=== PATIENT | female | born 1960 | race Caucasian/White ===

== ENCOUNTER 2022-01-05 10:25 | Emergency (ER) | payer OTHER, SELFPAY ==
[2022-01-05 10:41] VITALS: BP 135/78; PULSE 62; RESP 16; TEMP 36.8; O2SAT 98; BMI 26.4
--- NOTE | 2022-01-05 11:03 | ED.NURSE ---
ekg done, pt placed on heart monitor, shows sr 60's. #20 sl placed R ac, blood drawn off iv start
--- NOTE | 2022-01-05 11:26 | CRLHL7_ITS ---
For Patients: As a result of the Century Cures Act, medical imaging exams and procedure reports are released immediately into your electronic medical record. You may view this report before your referring provider. If you have questions, please contact your health care provider. INDICATION: Chest pain TECHNIQUE: Chest 1 view COMPARISON: None FINDINGS: Cardiovascular and mediastinum: Heart size and vasculature are normal in caliber and appearance. Lungs and pleural spaces: Lungs are clear. No sign of infiltrate or mass. No sign of pleural effusion. No pneumothorax. Bones and soft tissues: No significant findings. IMPRESSION: No acute findings. Dictated by Quan Massey MD @ 01/05/2022 12:09:19 PM (Electronically Signed)
--- NOTE | 2022-01-05 11:26 | ED.CHESTPAIN ---
HPI - Chest Pain General Time Seen by Provider: 11:26 Date Seen: 01/05/22 Chief Complaint: Chest Pain Stated Complaint: Chest pain, left arm numb Time Seen by Provider: 01/05/22 11:25 Source: patient, RN notes reviewed and old records reviewed Mode of arrival: ambulatory Limitations: no limitations History of Present Illness HPI narrative: Amie is a very pleasant 61-year-old female with a history of hypertension and poorly treated hyper lipidemia as well as strong family history of early heart disease who comes to the [facility] for evaluation regarding chest pain. Patient notes that she has had chest pain on and off over the past 7 days. It does not appear to be associated particularly with activity and activity does not make it worse. She shows this to be in the bottom part of her sternal area. She states occasionally it does wrap around to her back. This does not stop her from sleeping. It is not associated with shortness of breath, nausea or dizziness. 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 She does note a new onset cough that is not productive but associated with some throat drainage. She has not had any known exposures to illnesses. She denies runny nose vomiting diarrhea. Patient has not noted any recent weight loss or lower extremity edema but has noticed extreme fatigue lately. Patient has a strong family history of heart disease. Her father had her his 1st heart attack at the age of 42 and at 49. Two brothers have early heart disease with 1 brother having an MO at 36 with 8 bypass surgery subsequent to that. He at 47. Sister and brother also have early heart disease. She will herself had a stress test many years ago but nothing recently. She notes that she was on simvastatin for hyperlipidemia but she stopped that because she stated it made her feet feel cold. She then was placed on atorvastatin but felt that it gave her headache and so she has stopped that medication as well. She does continue on her atenolol for high blood pressure. She does note that if she does not take her atenolol she does have some fluttering in her chest. Patient attempted to go to see her primary at the [facility] but they told her to go to the emergency room. Patient does not smoke. Alcohol use is occasional. Related Data Home Medications Medication Instructions Recorded Confirmed atenolol 50 mg-chlorthalidone 25 tab 01/05/22 mg tablet cetirizine 10 mg tablet mg 01/05/22 simvastatin .ROUTE 01/05/22 Allergies Allergy/AdvReac Type Severity Reaction Status Date / Time No Known Drug Allergies Allergy Verified 01/05/22 10:45 Review of Systems Status of ROS Reports: 10 or more systems reviewed and unremarkable except as noted in History and below Const Reports: fatigue; Denies: fever or chills Eyes Denies: change in vision ENMT Denies: throat pain, neck pain, throat swelling or hoarseness Cardio Reports: chest pain; Denies: palpitations, swelling of feet/ankles, lightheadedness or shortness of breath with exertion Resp Denies: shortness of breath GI Reports: abdominal pain (Lower sternal area and upper abdominal pain); Denies: nausea, vomiting, diarrhea, constipation or blood in stool Denies: painful urination or urinary frequency Musculo Denies: neck pain Neuro Denies: headache or weakness in extremities Endo Reports: fatigue Allergy/Immuno Denies: throat swelling PFSH PFSH Social History Smoking Status: Former smoker How often do you have a drink containing alcohol: 2-3 times a week AUDIT-C Alcohol total score: 3 Non-prescribed substance use: denies use Exam Narrative Exam Narrative: Amie is a very pleasant woman in no acute distress when I meet her in exam room 8. She does appear slightly fatigued. Head is atraumatic normocephalic. Her eyes are clear EOM is full. Oral cavity with moist mucous membranes. Neck is supple without lymphadenopathy. Heart with regular rate and rhythm without murmur. No rub is auscultated. Lungs are clear in all lung reyes. Abdomen is soft nontender. No discomfort in the epigastrium right upper quadrant with palpation. No pulsating mass. Lower extremities without edema. No calf tenderness. Homans sign is negative. Pedal pulses are intact and symmetrical. Const Vital Signs, click to edit/add: Vital Signs - 24 hr 01/05/22 10:41 01/05/22 15:20 01/05/22 13:00 Temperature 98.3 F Pulse Rate [Pulse Oximeter] 62 61 64 Respiratory Rate 16 18 Blood Pressure [Right Upper Arm] 135/78 138/80 127/83 Pulse Oximetry 98 97 96 Oxygen Delivery Method Room Air Room Air Room Air 01/05/22 14:00 Temperature Pulse Rate [Pulse Oximeter] 62 Respiratory Rate Blood Pressure [Right Upper Arm] 134/80 Pulse Oximetry 96 Oxygen Delivery Method Room Air Documenting provider has reviewed patient's vital signs: yes Course Course Hospital Course: At this time she lip is a 61-year-old female with poorly treated hyperlipidemia extremely strong family history of early cardiac disease but reassuring vital signs and EKG. Patient will have an IV placed and labs drawn including CBC, comprehensive panel, lipase, troponin, chest x-ray, EKG, cardiac monitoring, oximetry. Differential diagnosis does include but is not limited to angina, pericarditis, COVID, influenza, PE, dissection, pancreatitis, gastritis, esophagitis, GERD. Reevaluation(s) Reevaluation #1: Patient is informed that initial troponin is negative and EKG reassuring. In addition thyroid appears to be normal. CRP and COVID/influenza negative as well. At this point will get a 2nd set of EKG and cardiac enzyme. Given patient's significant family history for early heart disease will also speak with Cardiology. Time: 13:03 Vital Signs Vital signs: Initial Vital Signs Temperature 98.3 F 01/05/22 10:41 Temperature Source Temporal Artery Scan 01/05/22 10:41 Pulse Rate 62 01/05/22 10:41 Respiratory Rate 16 01/05/22 10:41 Blood Pressure 135/78 01/05/22 10:41 Blood Pressure Mean 97 01/05/22 10:41 Blood Pressure Position Supine 01/05/22 10:41 Pulse Oximetry 98 01/05/22 10:41 Oxygen Delivery Method 01/05/22 10:41 Vital Signs Temperature 98.3 F 01/05/22 10:41 Pulse Rate 62 01/05/22 10:41 Respiratory Rate 16 01/05/22 10:41 Blood Pressure 135/78 01/05/22 10:41 Pulse Oximetry 98 01/05/22 10:41 Oxygen Delivery Method 01/05/22 10:41 Temperature 98.3 F 01/05/22 10:41 Pulse Rate 61 01/05/22 15:20 Respiratory Rate 18 01/05/22 15:20 Blood Pressure 138/80 01/05/22 15:20 Pulse Oximetry 97 01/05/22 15:20 Oxygen Delivery Method 01/05/22 15:20 MDM - Chest Pain MDM Narrative Medical decision making narrative: 1. Chest pain-at this time EKGs and cardiac enzymes x2 are negative. I did have the pleasure of speaking with [facility] magnetic grinder operator who does suggest that Amie is likely going to benefit from CTA but unable to do that today. We were able to do an echocardiogram which was reassuring in terms of structure. We did start patient on aspirin 324 mg today and she will continue that. We did attempt scheduling an appointment with cardiology follow-up tomorrow but then noted that there is going to be significance no in the area and patient will be seen on WednesdayJanuary [address] Cole at [address] in [place] [address]. I did provide both the phone number and the address to the patient. Phone number is [phone]. Until that time patient will remain and not be at work. She is instructed not do any strenuous activity including sexual activity. A note for this is provided to her. D-dimer negative. Chest x-ray without evidence of widened mediastinum. 2. Fatigue-TSH, white count, electrolytes, urinalysis reassuring. 3. Hyperlipidemia-recommend restarting current medications 4. Disposition -home at this time. Seek medical attention or return for worsening symptoms. Medical Records Data Attestation: I reviewed the patient's medical records. Lab Data Attestation: I reviewed the patient's lab results. Labs: Lab Results 01/05/22 01/05/22 01/05/22 Range/Units 11:00 11:00 11:00 WBC 6.82 (4.50-11.00) K/uL RBC 4.84 (4.00-5.20) m/uL Hgb 13.1 (12.0-16.0) gm/dL Hct 40.8 (33.0-51.0) % MCV 84 (80-100) fL MCH 27 (26-34) pg MCHC 32 (32-36) gm/dL RDW Coeff of Melina 13.0 (11.5-15.5) % Plt Count 296 (140-440) K/uL Neut % (Auto) 58.4 (42.0-72.0) % Lymph % (Auto) 29.5 (20-44) % [place] % (Auto) 8.4 (0.0-11.0) % Eos % (Auto) 3.2 (0.0-7.0) % Baso % (Auto) 0.4 (0.0-3.0) % Neut # (Auto) 3.98 (1.7-7.0) K/uL Lymph # (Auto) 2.01 (0.90-2.90) K/uL [place] # (Auto) 0.60 (0.00-0.90) K/UL Eos # (Auto) 0.22 (0.00-0.50) K/uL Baso # (Auto) 0.03 (0.00-0.30) K/uL Abs Immat Gran (auto) 0.01 (0.00-0.30) K/uL Imm/Tot Granulo (auto) 0.1 % D-Dimer Quant (PE/DVT) < 0.27 (0.00-0.50) ug/ml Sodium 138 (135-149) mmol/L Potassium 3.8 (3.6-5.1) mmol/L Chloride 106 (96-114) mmol/L Carbon Dioxide 27 (20-32) mmol/L BUN 20 (7-30) mg/dL Creatinine 0.9 (0.5-1.5) mg/dL Estimated Creat Clear 44.02 Estimated GFR 72 ml/min Glucose 91 (60-115) mg/dL Calcium 9.0 (8.4-10.6) mg/dL Magnesium 1.8 (1.5-2.6) mg/dL Total Bilirubin 0.6 (0.1-1.5) mg/dL AST 22 (12-35) U/L ALT 25 (4-35) U/L Alkaline Phosphatase 71 (40-150) U/L C-Reactive Protein < 0.5 L (0.5-1.0) mg/dL Total Protein 7.1 (6.0-8.3) g/dL Albumin 4.4 (3.3-5.0) g/dL Lipase (23-300) U/L Vitamin B12 298 (243-894) pg/mL TSH (0.270-4.20) uIU/mL Urine Color (Yellow) Urine Appearance (Clear) Urine pH (5.0-8.5) Ur Specific [place] (1.000-1.030) Urine Protein (Negative) Urine Glucose (UA) (Negative) Urine Ketones (Negative) Urine Blood (Negative) Urine Nitrite (Negative) Urine Bilirubin (Negative) Urine Urobilinogen (0.2-1.0) Ur Leukocyte Esterase (Negative) Urine RBC (0-2) Urine WBC (0-5) Ur Squamous Epith Cells (None-Few) Urine Bacteria (None) SARS-CoV-2 (PCR) (Negative) Influenza Type A (PCR) (Negative) Influenza Type B (PCR) (Negative) POC Troponin I (0.01-0.04) ng/ml 01/05/22 01/05/22 01/05/22 Range/Units 11:00 11:00 11:00 WBC (4.50-11.00) K/uL RBC (4.00-5.20) m/uL Hgb (12.0-16.0) gm/dL Hct (33.0-51.0) % MCV (80-100) fL MCH (26-34) pg MCHC (32-36) gm/dL RDW Coeff of Melina (11.5-15.5) % Plt Count (140-440) K/uL Neut % (Auto) (42.0-72.0) % Lymph % (Auto) (20-44) % [place] % (Auto) (0.0-11.0) % Eos % (Auto) (0.0-7.0) % Baso % (Auto) (0.0-3.0) % Neut # (Auto) (1.7-7.0) K/uL Lymph # (Auto) (0.90-2.90) K/uL [place] # (Auto) (0.00-0.90) K/UL Eos # (Auto) (0.00-0.50) K/uL Baso # (Auto) (0.00-0.30) K/uL Abs Immat Gran (auto) (0.00-0.30) K/uL Imm/Tot Granulo (auto) % D-Dimer Quant (PE/DVT) (0.00-0.50) ug/ml Sodium (135-149) mmol/L Potassium (3.6-5.1) mmol/L Chloride (96-114) mmol/L Carbon Dioxide (20-32) mmol/L BUN (7-30) mg/dL Creatinine (0.5-1.5) mg/dL Estimated Creat Clear Estimated GFR ml/min Glucose (60-115) mg/dL Calcium (8.4-10.6) mg/dL Magnesium (1.5-2.6) mg/dL Total Bilirubin (0.1-1.5) mg/dL AST (12-35) U/L ALT (4-35) U/L Alkaline Phosphatase (40-150) U/L C-Reactive Protein (0.5-1.0) mg/dL Total Protein (6.0-8.3) g/dL Albumin (3.3-5.0) g/dL Lipase 123 (23-300) U/L Vitamin B12 (243-894) pg/mL TSH 0.838 (0.270-4.20) uIU/mL Urine Color (Yellow) Urine Appearance (Clear) Urine pH (5.0-8.5) Ur Specific [place] (1.000-1.030) Urine Protein (Negative) Urine Glucose (UA) (Negative) Urine Ketones (Negative) Urine Blood (Negative) Urine Nitrite (Negative) Urine Bilirubin (Negative) Urine Urobilinogen (0.2-1.0) Ur Leukocyte Esterase (Negative) Urine RBC (0-2) Urine WBC (0-5) Ur Squamous Epith Cells (None-Few) Urine Bacteria (None) SARS-CoV-2 (PCR) (Negative) Influenza Type A (PCR) (Negative) Influenza Type B (PCR) (Negative) POC Troponin I 0.00 L (0.01-0.04) ng/ml 01/05/22 01/05/22 01/05/22 Range/Units 11:26 11:45 13:43 WBC (4.50-11.00) K/uL RBC (4.00-5.20) m/uL Hgb (12.0-16.0) gm/dL Hct (33.0-51.0) % MCV (80-100) fL MCH (26-34) pg MCHC (32-36) gm/dL RDW Coeff of Melina (11.5-15.5) % Plt Count (140-440) K/uL Neut % (Auto) (42.0-72.0) % Lymph % (Auto) (20-44) % [place] % (Auto) (0.0-11.0) % Eos % (Auto) (0.0-7.0) % Baso % (Auto) (0.0-3.0) % Neut # (Auto) (1.7-7.0) K/uL Lymph # (Auto) (0.90-2.90) K/uL [place] # (Auto) (0.00-0.90) K/UL Eos # (Auto) (0.00-0.50) K/uL Baso # (Auto) (0.00-0.30) K/uL Abs Immat Gran (auto) (0.00-0.30) K/uL Imm/Tot Granulo (auto) % D-Dimer Quant (PE/DVT) (0.00-0.50) ug/ml Sodium (135-149) mmol/L Potassium (3.6-5.1) mmol/L Chloride (96-114) mmol/L Carbon Dioxide (20-32) mmol/L BUN (7-30) mg/dL Creatinine (0.5-1.5) mg/dL Estimated Creat Clear Estimated GFR ml/min Glucose (60-115) mg/dL Calcium (8.4-10.6) mg/dL Magnesium (1.5-2.6) mg/dL Total Bilirubin (0.1-1.5) mg/dL AST (12-35) U/L ALT (4-35) U/L Alkaline Phosphatase (40-150) U/L C-Reactive Protein (0.5-1.0) mg/dL Total Protein (6.0-8.3) g/dL Albumin (3.3-5.0) g/dL Lipase (23-300) U/L Vitamin B12 (243-894) pg/mL TSH (0.270-4.20) uIU/mL Urine Color Yellow (Yellow) Urine Appearance Clear (Clear) Urine pH 6.0 (5.0-8.5) Ur Specific [place] >= 1.030 (1.000-1.030) Urine Protein Negative (Negative) Urine Glucose (UA) Negative (Negative) Urine Ketones Negative (Negative) Urine Blood Negative (Negative) Urine Nitrite Negative (Negative) Urine Bilirubin Negative (Negative) Urine Urobilinogen 0.2 (0.2-1.0) Ur Leukocyte Esterase Negative (Negative) Urine RBC 0-2 (0-2) Urine WBC 0-2 (0-5) Ur Squamous Epith Cells None (None-Few) Urine Bacteria None (None) SARS-CoV-2 (PCR) Negative SARS-CoV-2 (Negative) Influenza Type A (PCR) Negative PCR FLU A (Negative) Influenza Type B (PCR) Negative PCR FLU B (Negative) POC Troponin I 0.00 L (0.01-0.04) ng/ml Imaging Data Chest x-ray: Attestation: I have reviewed the pertinent imaging results. Radiologist's impression: Cardiovascular and mediastinum:? Heart size and vasculature are normal in caliber and appearance.? Lungs and pleural spaces:? Lungs are clear.? No sign of infiltrate or mass. ?No sign of pleural effusion.? No pneumothorax.? Bones and soft tissues:? No significant findings. IMPRESSION: No acute findings. ECG Data Attestation: I personally reviewed and interpreted this ECG as follows: ECG interpretation date: 01/05/22 Prior ECG tracings: not available for review Interpretation: EKG by my read shows sinus rhythm at a rate of 64. No evidence of acute ST or T-wave changes. QT corrected normal at 418. Discharge Plan Discharge Clinical Impression: Chest pain Patient Disposition: Home, Self-Care Condition: Improved Additional Instructions: Aspirin daily. Avoid excessive activity. Note so that you do not have to work this week. Follow-up with Dr. Cleveland, magnetic grinder operator. The address is [address] [place] [address], [address], [place] [address]. The phone number is [phone]. Your appointment is on WednesdayJanuary 09 at 1100 hours. They are requesting that you arrive 15 minutes early. Please seek medical attention for worsening symptoms. Prescriptions: No Action cetirizine 10 mg tablet atenolol-chlorthalidone 50-25 mg tablet simvastatin .ROUTE Follow Up/Referrals: Alissa Ndiaye MD [Staff Physician] - Stand Alone Forms: [employer] Info Instructions
--- OUTSIDE RECORDS SUMMARY | 2022-01-05 11:31 | XMS_ITS | Clinical Summary ---
:1960 Author Organization [facility] [place] [address] Care Team Providers Name Role Phone Pcp, No Primary Care Provider Unavailable Allergies No known active allergies Medications Medication Sig Dispensed Refills Start Date End Date Status azithromycin Take 2 tablets by 6 tablet 0 12/29/2017 Active (ZITHROMAX) 250 mg mouth on day 1 and tablet then 1 tab daily for the next 4 days. Please take a probiotic with the antibiotic predniSONE Take 1 tablet by 5 tablet 0 12/29/2017 A ctive (DELTASONE) 20 mg mouth once daily in tablet the morning for 5 days atenolol-chlorthalido Take 1 Tablet by 0 02/09/2021 Active ne, 50-25 mg, mouth once daily. (TENORETIC 50) 50-25 mg tabletIndications: Viral upper respiratory tract infection with cough citalopram (CELEXA) Take 20 mg by mouth 0 06/05/2020 Active 20 mg once daily. tabletIndications: Viral upper respiratory tract infection with cough cetirizine (ZYRTEC) Take 10 mg by mouth 0 06/05/2020 Active 10 mg once daily. tabletIndications: Viral upper respiratory tract infection with cough Active Problems Not on file Social History Tobacco Use Types Packs/Day Years Used Date Never Smoker Smokeless Tobacco: Never Used Sex Assigned at Date Recorded Not on file Obstetrics History Last Filed Vital Signs Vital Sign Reading Time Taken Comments Blood Pressure 146/81 02/13/2021 9:29 AM SECURITY ANALYST Pulse 96 02/13/2021 9:29 AM SECURITY ANALYST Temperature 38.2 ??C (100.7 ??F) 02/13/2021 9:29 AM SECURITY ANALYST Respiratory Rate 18 02/13/2021 9:29 AM SECURITY ANALYST Oxygen Saturation 97% 02/13/2021 9:29 AM SECURITY ANALYST Inhaled Oxygen Concentration - - Weight 63.5 kg (140 lb) 02/13/2021 9:29 AM SECURITY ANALYST Height 156.2 cm (5' 1.5) 02/13/2021 9:29 AM SECURITY ANALYST Body Mass Index 26.02 02/13/2021 9:29 AM SECURITY ANALYST Plan of Treatment Health Maintenance Due Date Last Done Comments COVID-19 vaccine series (#1) 1960 Tdap 1970 Depression screening for age 12+ 1971 HIV for age 15-65 1974 Hepatitis C screening for age 18-79 1977 Tetanus booster 1979 Pap test for age 21-65 02/17/1980 Colonoscopy through age 75 02/17/2004 Lipids for age 45-75 02/17/2004 Mammogram for age 45-75 02/17/2004 Zoster (shingles) series for age 50+ (1 of 2) 2009 Influenza for age 50-64 10/09/2021 BMI (ht and wt on same day) for age 18+ 02/13/2022 02/13/19 22 Results Not on filefrom Last 3 Months Insurance Payer Benefit Plan / Subscriber ID Effective Dates Phone Addre ss Type Group PREFERRED ONE PREFERRED ONE [id number] 2021-Present [address] [address] [place] [address] Care Teams Dog Catcher Relationship Specialty Start Date End Date Pcp, No PCP - General 02/13/21 .
--- OUTSIDE RECORDS SUMMARY | 2022-01-05 11:31 | XMS_ITS | Encounter Summary ---
:1960 Author Organization [facility] Address [address] [place] [address] Care Team Providers Name Role Phone Kleber Ledesma PA-C Primary Care Provider [phone] Kleber Ledesma PA-C Unavailable [phone] Encounter Details Date Type Department Care Team Description 07/21/2021 Travel Social History Tobacco Use Types Packs/Day Years Used Date Smoking Tobacco: Former Smokeless Tobacco: Never Comments: quit smoking at 21 yrs old. sm oked 2 to 31/03 ppd Alcohol Use Standard Drinks/Week Comments Yes 2 (1 standard drink = 0.6 oz pure alcoho l) socially Sex Assigned at Date Recorded Not on file COVID-19 Exposure Response Date Recorded In the last 10 days, have you been in contact with No / Unsu re 07/21/2021 1:48 PM CDT someone who was confirmed or suspected to have Coronavirus/COVID-19? documented as of this encounter Plan of Treatment Not on filedocumented as of this encounter Visit Diagnoses Not on filedocumented in this encounter Additional Health Concerns Assessment Noted Time PHQ-9 Depression Total Score: 3 05/19/2021 2:43 PM CDT documented as of this encounter Care Teams Key Account Coordinator Relationship Specialty Start Date End Date Kleber Ledesma, PCP - General Physician Nitric Acid Concentrator Operator - 05/15/14 [facility] Kleber Ledesma, Assigned PCP 06/09/20 [facility] [id number] [place] [address] documented as of this encounter
--- OUTSIDE RECORDS SUMMARY | 2022-01-05 11:31 | XMS_ITS | Encounter Summary ---
:1960 Author Organization [facility] Address [address] [place] [address] Care Team Providers Name Role Phone Kleber Ledesma PA-C Primary Care Provider [phone] Kleber Ledesma PA-C Unavailable [phone] Encounter Details Date Type Department Care Team Description 07/17/2021 Travel Social History Tobacco Use Types Packs/Day [...] in contact with No / Unsu re 07/17/2021 3:06 PM CDT someone who was confirmed or suspected to have Coronavirus/COVID-19? documented as of this encounter Plan of Treatment Not on filedocumented as of this encounter Visit Diagnoses Not on filedocumented in this encounter Additional Health Concerns Assessment Noted Time PHQ-9 Depression Total Score: 3 05/19/2021 2:43 PM CDT documented as of this encounter Care Teams Structural Mill Supervisor Relationship Specialty Start Date End Date Kleber Ledesma, PCP - General Physician Electric Installer - 05/15/14 [facility] Kleber Ledesma, Assigned PCP 06/09/20 [facility] [address] [place] [address] documented as of this encounter
--- OUTSIDE RECORDS SUMMARY | 2022-01-05 11:31 | XMS_ITS | Encounter Summary ---
:1960 Author Organization [facility] Address [address] [place] [address]. [place] [address] Care Team Providers Name Role Phone Kleber Ledesma PA-C Primary Care Provider [phone] Kleber Ledesma PA-C Unavailable [phone] Reason for Visit Diagnostic Imaging XR (Routine) - Pending Review Specialty Diagnoses / Procedures Referred By Contact Refer red To Contact Diagnoses Left wrist pain Yesi Álvarez MD Procedures XR Wrist Left G/E 3 Views [id number] [place] [address] Referral ID Status Reason Start Date Expiration Date Visits V isits Requested Authorized [id number] Pending 07/17/2021 07/17/2022 1 1 Review Encounter Details Date Type Department Care Team Description 07/21/2021 Ancillary Procedure [facility] Yesi Álvarez [place] [address] [address] [address] [address], [place] [phone] Social History Tobacco Use Types Packs/Day Years Used Date Smoking Tobacco: Former Smokeless Tobacco: Never Comments: quit smoking at 21 yrs old. sm oked 2 to 21/2 ppd Alcohol Use Standard Drinks/Week Comments Yes [...] Not on filedocumented as of this encounter Procedures Procedure Name Priority Date/Time Associated Diagnosis Comme nts XR WRIST LEFT G/E 3 Routine 07/21/2021 2:00 PM Left wrist pain Results for this VIEWS CDT procedure are i n the results section. documented in this encounter Results XR Wrist Left G/E 3 Views (07/21/2021 2:00 PM CDT) Anatomical Region Laterality Modality Wrist, Left Wrist Left Computed Radiography Specimen (Source) Anatomical Location Collection Method / Collectio n Time Received Time / Laterality Volume Impressions 07/21/2021 2:21 PM CDT IMPRESSION: No evidence of acute fracture. Joint spaces are maintained. No erosions. DEEJAY OROZCO MD Narrative 07/21/2021 2:21 PM CDT XR WRIST LEFT G/E 3 VIEWS 07/21/2021 2:00 PM HISTORY: Left wrist pain COMPARISON: None. Procedure Note Deejay Orozco MD - 07/21/2021 XR WRIST LEFT G/E 3 VIEWS 07/21/2021 2:00 PM HISTORY: Left wrist pain COMPARISON: None. IMPRESSION: No evidence of acute fractur e. Joint spaces are maintained. No erosions. DEEJAY OROZCO MD Yesi Álvarez MD IMG DIAGNOSTIC IMAGING ORDER PB documented in this encounter Visit Diagnoses Diagnosis Left wrist pain Pain in joint, forearm documented in this encounter Additional Health Concerns Assessment Noted Time PHQ-9 Depression Total Score: 3 05/19/2021 2:43 PM CDT documented as of this encounter Care Teams Insurance Policy Clerk Relationship Specialty Start Date End Date Kleber Ledesma, PCP - General Physician Strap Folding Machine Operator - 05/15/14 RACH[facility] Medical Kleber Ledesma, Assigned PCP 06/09/20 R[facility] [address] [facility] [place] [address] documented as of this encounter
--- OUTSIDE RECORDS SUMMARY | 2022-01-05 11:31 | XMS_ITS | Clinical Summary ---
:1960 Author Organization [facility] Address [address] [place] [address] Care Team Providers Name Role Phone Kleber Ledesma PA-C Primary Care Provider Kleber Ledesma PA-C Unavailable [phone] Allergies Active Allergy Reactions Severity Noted Date Comments No Known Drug Allergies 04/14/2004 Medications Medication Sig Dispensed Refills Start Date End Date Status citalopram (CELEXA) 20 Take 1 tablet 90 tablet 3 05/19/2021 Active MG tabletIndications: (20 mg) by mouth Mild major depression in the morning. (H) atenolol-chlorthalidone Take 1 tablet by 90 tablet 3 2 Active (TENORETIC) 50-25 MG mouth in the tabletIndications: morning. Essential hypertension with goal blood pressure less than 140/90 buPROPion (WELLBUTRIN) Take 1 tablet 30 tablet 1 05/19/2021 Active 75 MG tabletIndications: (75 mg) by mouth Mild major depression in the morning. (H) atorvastatin (LIPITOR) Take 1 tablet 90 tablet 1 06/01/2021 Active 10 MG tabletIndications: (10 mg) by mouth Mixed hyperlipidemia daily cetirizine (ZYRTEC) 10 TAKE ONE TABLET 90 tablet 3 06/24/2021 Active MG tabletIndications: BY MOUTH EVERY Seasonal allergic DAY rhinitis, unspecified trigger meloxicam (MOBIC) 15 MG Take 1 tablet 30 tablet 0 07/17/2021 Active tabletIndications: Left (15 mg) by mouth wrist pain, Pain of left daily hand Active Problems Patient Care Coordination Note Formatting of this note might be differe nt from the original. [email or web address] Problem Noted Date Cellulitis of left lower extremity 05/31/2020 Cat bite, initial encounter 05/31/2020 Post concussive syndrome 09/27/2017 Primary osteoarthritis of right knee 07/21/2017 Chest discomfort 06/05/2014 ACP (advance care planning) 06/01/2014 Overview: Advance Care Planning: Initial facilitat ion introduction: Amie Brian Scott presented for initial session regarding ACP at a group session. She was accompanied by no one. Honoring Choices information prov ided and resources reviewed. She current ly wishes to give additional consideration to ACP prior to documenting choices. She currently has the following questions or concerns about Advance Care Planning: none. Confirmed/documented designated d ecision maker(s). See permanent comments section of demographics in clinical tab. Added by Amie Angelo on 06/01/2014 CARDIOVASCULAR SCREENING; LDL GOAL LESS THAN 130 05/30 Family history of ischemic heart disease 05/30/2014 Cataract 05/30/2014 CARDIOVASCULAR SCREENING; LDL GOAL LESS THAN 160 05/16 Essential hypertension with goal blood pressure less t prasad 140/90 05/16/2014 Mild major depression Resolved Problems Problem Noted Date Resolved Date Cervical pain 11/06/2015 01/16/2016 Hyperlipidemia with target LDL less than 130 05/16/2014 05/30/2014 Mild persistent asthma with exacerbation 01/03/2005 06/21/2005 Moderate persistent asthma 05/16/2014 Overview: cold air trigger Immunizations Name Administration Dates Next Due [id number] Novel Flu 03/09/2009 HepB-Adult 12/23/2010 Influenza (IIV3) PF 11/11/2012, 12/16/2010, 11/17/2009, 11/22/2008, 01/19/2007, 12/25/2004, 12/05/2002, 12/28/2001, 12/02/1995, 12/31/1993 Influenza Vaccine 50-64 or 18-64 02/06/2021, 10/18/2019, , w/egg allergy (Flublok) 11/01/2017 Influenza Vaccine >6 months 11/08/2016, 12/09/2015 (Alfuria,Fluzone) Influenza Vaccine, 6+MO IM 10/09/2018 (QUADRIVALENT W/PRESERVATIVES) TD (ADULT, 7+) 05/08/2002, 03/21/1991 Tdap (Adacel,Boostrix) 05/31/2020, 02/28/2010 Zoster vaccine recombinant adjuvanted 11/14/2018 (SHINGRIX) Family History Medical History Relation Comments Allergies Brother 1 C.A.D. Brother 1 Heart Disease Brother 1 Aneurysm Brother 2 Diabetes Brother 2 C.A.D. Brother 3 Myocardial Infarction Brother 3 Coronary Artery Disease Father Myocardial Infarction Father Colon Cancer Maternal Grandmother Macular Degeneration Mother Breast Cancer Sister 1 Myocardial Infarction Sister 1 Other Cancer Sister 1 Ovarian Cancer Sister 1 Neurologic Disorder Sister 2 MS Relation Status Comments Brother 1 Brother 2 Alive Brother 3 Father Maternal Grandmother Mother Alive Sister 1 Alive Sister 2 Alive Social History Tobacco Use Types Packs/Day Years Used Date Smoking Tobacco: Former Smokeless Tobacco: Never Comments: quit smoking at 21 yrs old. sm oked 2 to 31/03 ppd Alcohol Use Standard Drinks/Week Comments Yes 2 (1 standard drink = 0.6 oz pure alcoho l) socially Sex Assigned at Date Recorded Not on file Last Filed Vital Signs Vital Sign Reading Time Taken Comments Blood Pressure 90/52 07/17/2021 3:24 PM CDT Pulse 68 07/17/2021 3:24 PM CDT Temperature 36.8 ??C (98.2 ??F) 07/17/2021 3:24 PM CDT Respiratory Rate 20 07/17/2021 3:24 PM CDT Oxygen Saturation 97% 07/17/2021 3:24 PM CDT Inhaled Oxygen Concentration - - Weight 64.4 kg (142 lb) 07/17/2021 3:24 PM CDT Height 154.3 cm (5' 0.75) 05/19/2021 1:44 PM CDT Body Mass Index 27.05 05/19/2021 1:44 PM CDT Plan of Treatment Health Maintenance Due Date Last Done Comments CT COLONOGRAPHY 1960 FIT-DNA (Cologuard) 1960 FIT 1960 FLEX SIG 1960 COVID-19 Vaccine (#1) 1960 LUNG CANCER SCREENING 2009 05/10/2004 ZOSTER IMMUNIZATION (2 of 01/09/2019 11/14/2018 2) INFLUENZA VACCINE (#1) 2021 02/06/2021, 10/18/2019, 10/24/2018, Additional history exists PHQ-9 11/18/2021 05/19/2021, 05/31/2020, 10/18/2019, Additional history exists ANNUAL REVIEW OF HM ORDERS 05/19/2022 05/19/2021, YEARLY PREVENTIVE VISIT 05/19/2022 05/19/2021, 11/14/2018, 10/04/2017, Additional history exists HPV TEST 10/04/2022 10/04/2017 PAP 10/04/2022 10/04/2017, 09/24/2014 MAMMO SCREENING 05/03/2023 05/02/2021, 11/15/2018, 01/27/2017, Additional history exists ADVANCE CARE PLANNING 10/17/2024 10/18/2019 (Declined), 06/01/2014 COLONOSCOPY 12/31/2024 12/31/2014, 12/31/2014 COLORECTAL CANCER 12/31/2024 SCREENING LIPID 05/19/2026 05/19/2021, 06/28/2020, 11/14/2018, Additional history exists DTAP/TDAP/TD IMMUNIZATION 05/31/2030 05/31/2020, 02/28/2010 , (5 - Td or Tdap) 05/08/2002, Additional history exists HEPATITIS C SCREENING Completed 10/19/2016 DEPRESSION ACTION PLAN Completed 10/04/2017 HIV SCREENING Discontinued IPV IMMUNIZATION Aged Out No longer eligi ble based on patient 's age to complete this topic MENINGITIS IMMUNIZATION Aged Out No longe r eligible based on patient 's age to complete this topic Pneumococcal Vaccine: Aged Out No longer eligible Pediatrics (0 to 5 Years) based on patient's age and At-Risk Patients (6 to to co mplete this topic 64 Years) Insurance Payer Benefit Plan / Subscriber ID Effective Phone Address T ype Group Dates WORK COMP [employer] R[employer]K [id number] 2016-Pre [address] [place] [address] WORK COMP [employer] [id number] 2017-Pre [address] [place] [address] [employer] [id number] 2021-Pres [phone] [address] [address] PPO [employer] ent [address] [place] [address] [phone] (Home) [facility] [phone] [place] [phone] 0 (Work) Amie Scott Personal/Family Self 1960 [phone] (Home) [place] [address] Amie Scott Special Guarantor Self [id number] (Home) [facility] [place] [address] Amie Scott Worker's Self 1960 [phone] Compensation 6 (Home) [facility] [phone] [place] [phone] 0 (Work) Amie Scott Worker's Self 1960 [phone] Compensation 6 (Home) [place], [place] ([place] [address] Amie Scott Worker's Self 1960 [phone] Compensation 6 (Home) [place] [address] Amie Scott Worker's Self 1960 [id number] Compensation 6 (Home) [place] [address] Advance Directives For more information, please contact: [phone] Latest Code Status on File Code Status Date Activated Date Inactivated Comments Full Code 06/02/2020 9:30 AM Question Answer Comments Code status determined by: Discussion with patient/ legal de cision maker Code Status History Code Status Date Activated Date Inactivated Comments Full Code 05/31/2020 3:06 PM 06/02/2020 9:30 AM All basic an d advanced life-sustaining interventions are performed as debby ropriate Question Answer Comments Code status determined by: Discussion with patient/ legal de cision maker Full Code 05/29/2014 12:55 PM 05/29/2020 8:08 PM Full Code 05/28/2014 11:25 PM 05/29/2014 12:55 PM Care Teams Harness Installer Relationship Specialty Start Date End Date Kleber Ledesma, PCP - General Physician Data Review Specialist - 05/15/14 PADeanneC Medical Kleber Ledesma, Assigned PCP 06/09/20 PA-C [id number] [place] [address]
--- OUTSIDE RECORDS SUMMARY | 2022-01-05 11:31 | XMS_ITS | Encounter Summary ---
:1960 Author Organization [facility] Address [address] [place] [address]. [place] [address] Care Team Providers Name Role Phone Kleber Ledesma PA-C Primary Care Provider [phone] Kleber Ledesma PA-C Unavailable [phone] Reason for Referral Diagnostic Imaging XR (Routine) - Pending Review Specialty Diagnoses / Procedures Referred By Contact Refer red To Contact Diagnoses Left wrist pain Yesi Álvarez MD Procedures XR Wrist Left G/E 3 Views [id number] [address] Referral ID Status Reason Start Date Expiration Date Visits V isits Requested Authorized [id number] Pending 07/17/2021 07/17/2022 1 1 Review Reason for Visit Reason Comments Musculoskeletal Problem Left wrist/hand Encounter Details Date Type Department Care Team Description 07/17/2021 Office Visit [facility] Yesi Álvarez Left wr ist pain (Primary Dx); Clinic Melissa Kaba MD Pain of left hand [address] [address] [place] [id number] [phone] Social History Tobacco Use Types Packs/Day Years [...] have Coronavirus/COVID-19? documented as of this encounter Last Filed Vital Signs Vital Sign Reading Time Taken Comments Blood Pressure 90/52 07/17/2021 3:24 PM CDT Pulse 68 07/17/2021 3:24 PM CDT Temperature 36.8 ??C (98.2 ??F) 07/17/2021 3:24 PM CDT Respiratory Rate 20 07/17/2021 3:24 PM CDT Oxygen Saturation 97% 07/17/2021 3:24 PM CDT Inhaled Oxygen Concentration - - Weight 64.4 kg (142 lb) 07/17/2021 3:24 PM CDT Height - - Body Mass Index 27.05 05/19/2021 1:44 PM CDT documented in this encounter Progress Notes Yesi Álvarez MD - 07/17/2021 3:30 PM CDT Assessment & Plan Left wrist pain Work up needed, inflammatory arthritis suspected - ESR: Erythrocyte sedimentation rate; Future - CRP, inflammation; Future - XR Wrist Left G/E 3 Views; Future - meloxicam (MOBIC) 15 MG tablet; Take 1 tablet (15 mg) by mouth daily - Rheumatoid factor; Future - Lyme Disease Total Abs Bld with Reflex to Confirm CLIA; Future - ESR: Erythrocyte sedimentation rate - CRP, inflammation - Rheumatoid factor - Lyme Disease Total Abs Bld with Reflex to Confirm CLIA Pain of left hand Work up started - meloxicam (MOBIC) 15 MG tablet; Take 1 tablet (15 mg) by mouth daily - Rheumatoid factor; Future - Lyme Disease Total Abs Bld with Reflex to Confirm CLIA; Future - Rheumatoid factor - Lyme Disease Total Abs Bld with Reflex to Confirm CLIA Ordering of each unique test Prescription drug management Work on weight loss Regular exercise Return in about 1 month (around 08/16/2021) for Video Visi-wrist pain, Video Visit. Yesi Álvarez MD [facility] MELISSA Holloway is a 61 year old who presents for the following health issues History of Present Illness Reason for visit: Pain in wrist and hand Symptom onset: 3-4 weeks ago Symptoms include: Pain Symptom intensity: Severe Symptom progression: Worsening Had these symptoms before: No What makes it worse: Using my hand What makes it better: Not using hand She eats 2-3 servings of fruits and vegetables daily.She consumes 1 sweetened beverage(s) daily.She exercises with enough effort to increase her heart rate 30 to 60 minutes per day. She exercises with enough effort to increase her heart rate 4 days per week. She is missing 1 dose(s) of medications perweek. She is not taking prescribed medications regularly due to remembering to take. No fever, no weight loss, no headaches, no rash Painful wrist and hand, very painful in the morning and painful lower arm, goes up to the elbow-numbfeeling. This morning terrible to lift up her phone or wash her hair. Feels fine if not using it. advil helps take the edge off. Wraps it at work. Does have to lift at work([place]), will try to use sandy arm, rather then her hand/wrist. 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 Does not recall an injry, never happened before. Not always worse in the morning, but notices her hand hurts in the shoulder, pumping the shampoo, even straightening her fingers. Mom has arthritis. Very difficult to lift her grandaughter, feels weak. Review of Systems CONSTITUTIONAL: NEGATIVE for fever, chills, change in weight ENT/MOUTH: NEGATIVE for ear, mouth and throat problems RESP: NEGATIVE for significant cough or SOB CV: NEGATIVE for chest pain, palpitations or peripheral edema Objective BP 90/52 (BP Location: Right arm, Patient Position: Sitting, Cuff Size: Adult Regular) Pulse 68 Temp 98.2 ??F (36.8 ??C) (Oral) Resp 20 Wt 64.4 kg (142 lb) LMP 02/22/2010 (LMP Unknown) [id number]% BMI 27.05 kg/m?? Body mass index is 27.05 kg/m??. Physical Exam GENERAL: healthy, alert and no distress EYES: Eyes grossly normal to inspection, MS: no gross musculoskeletal defects noted Left wrist with suspected fluid, larger than right wrist, decreased ROM on both wrist, painful to make a fist on the left, no carpal tunnel like sx on exam, thumb joint is normal SKIN: no suspicious lesions or rashes NEURO: Normal strength and tone, mentation intact and speech normal PSYCH: mentation appears normal, affect normal/bright documented in this encounter Plan of Treatment Not on filedocumented as of this encounter Procedures Procedure Name Priority Date/Time Associated Comments Diagnosis LYME DISEASE TOTAL ABS Routine 07/17/2021 4:23 PM Left w rist pain Results for this BLD WITH REFLEX TO CDT Pain of left hand proc edure are in CONFIRM CLIA the results section. RHEUMATOID FACTOR Routine 07/17/2021 4:23 PM Left wrist pain Results for this CDT Pain of left hand procedure are in the results section. ERYTHROCYTE Routine 07/17/2021 4:23 PM Left wrist pain Result s for this SEDIMENTATION RATE CDT procedure are in AUTO the results section. CRP INFLAMMATION Routine 07/17/2021 4:23 PM Left wrist pain Re sults for this CDT procedure are i n the results [...] Álvarez MD IMG DIAGNOSTIC IMAGING ORDER PB Lyme Disease Total Abs Bld with Reflex to Confirm CLIA (07/17/2021 4:23 PM CDT) athologist Signature Lyme Disease 0.15 <0.90 07/18/2021 [facility] Antibodies 4:30 PM CDT CORE/PROT/ENDO Total Comment: Non-reactive, Absence of detect able Borrelia burgdorferi antibodies. A non-reactive result does not exclude the possibility of Borrelia burgdorferi infection. If early Lyme disease is susp ected, a second sample should be collected and tested 2 to 4 weeks later. Specimen Anatomical Collection Method / Collection Time Recei shaye Time (Source) Location / Volume Laterality Blood STRUCTURE OF RIGHT Venipuncture / 07/17/2021 4:23 06/0 10/2021 4:23 UPPER LIMB / Unknown PM CDT PM CDT Unknown Yesi Álvarez MD LAB - BLOOD ORDERABLES Performing Organization Address City/State/ZIP Code Phon e Number SPECIALTY CORE/PROT/ENDO [facility] [place], [place] [address] Core/Prot/Endo [address] [facility] [address] [facility], Room 3-580 (ABNORMAL) Rheumatoid factor (07/17/2021 4:23 PM CDT) athologist Signature Rheumatoid 12 (H) <12 IU/mL 07/21/2021 [facility] Factor 10:05 AM CDT CORE/PROT/ENDO Specimen Anatomical Collection Method / Collection Time Recei shaye Time (Source) Location / Volume Laterality Blood STRUCTURE OF RIGHT Venipuncture / 07/17/2021 4:23 06/0 10/2021 4:23 UPPER LIMB / Unknown PM CDT PM CDT Unknown Yesi Álvarez MD LAB - BLOOD ORDERABLES Performing Organization Address City/State/ZIP Code Phon e Number SPECIALTY CORE/PROT/ENDO [facility] [place] [place] [address] Core/Prot/Endo [address] [facility] [address] [facility], Room 3-580 CRP, inflammation (07/17/2021 4:23 PM CDT) Analysis Performed At Patho logist Time Signature CRP Inflammation <2.9 0.0 - 8.0 07/18/2021 [facility]ATOR Y mg/L 3:20 PM CDT Specimen Anatomical Collection Method / Collection Time Recei shaye Time (Source) Location / Volume Laterality Blood STRUCTURE OF RIGHT Venipuncture / 07/17/2021 4:23 06/0 10/2021 4:23 UPPER LIMB / Unknown PM CDT PM CDT Unknown Yesi Álvarez MD LAB - BLOOD ORDERABLES Performing Organization Address City/State/ZIP Code Phon e Number [facility] [place] [place] [address] Lab [address] [facility], Room 3-580 ESR: Erythrocyte sedimentation rate (07/17/2021 4:23 PM CDT) Patholo gist Method Time Signature Erythrocyte 7 0 - 30 07/17/2021 LABORATORY Sedimentation Rate mm/hr 4:30 PM CDT Specimen Anatomical Collection Method / Collection Time Recei shaye Time (Source) Location / Volume Laterality Blood STRUCTURE OF RIGHT Venipuncture / 07/17/2021 4:23 06/0 10/2021 4:23 UPPER LIMB / Unknown PM CDT PM CDT Unknown Yesi Álvarez MD LAB - BLOOD ORDERABLES Performing Organization Address City/State/ZIP Code Phon e Number LABORATORY [facility] [place] [address] Lab [address] [facility] [place] [facility] (no room number, 1st floor of clinic) [place] [address], [phone] [facility] [place] [facility] [address] [facility] (no room number, 1st floor of clinic) documented in this encounter Visit Diagnoses Diagnosis Left wrist pain - Primary Pain in joint, forearm Pain of left hand Pain in limb Left wrist pain Pain in joint, forearm documented in this encounter Additional Health Concerns Assessment Noted Time PHQ-9 Depression Total Score: 3 05/19/2021 2:43 PM CDT documented as of this encounter Care Teams Custom Home Installer Relationship Specialty Start Date End Date Kleber Ledesma, PCP - General Physician Senior Cytotechnologist - 05/15/14 [facility] Medical Kleber Ledesma, Assigned PCP 06/09/20 RACHNA [address] [address] [address] documented as of this encounter
--- OUTSIDE RECORDS SUMMARY | 2022-01-05 11:32 | XMS_ITS | Encounter Summary ---
:1960 Author Organization [facility] Address [address] [place] [address]. [place] [address] Care Team Providers Name Role Phone Kleber Ledesma PA-C Primary Care Provider [phone] Junie Rm PA-C Unavailable Patricia Brown RN Unavailable Reason for Referral Care Coordination (Routine) - Closed Specialty Diagnoses / Procedures Referred By Contact Refer red To Contact Diagnoses Other specified counseling [facility] Care Coordination [address] [place], [place] [phone] Referral ID Status Reason Start Date Expiration Date Visits Requ ested Visits Authorized [id number] Closed 06/03/2020 06/03/2021 1 1 Encounter Details Date Type Department Care Team Description 06/03/2020 Orders Only [facility] Kleber Ledesma Other specified Care Coordination RACHNA Valderrama counseling [facility] [address] [place], [place] [address] [phone] Social History Tobacco Use Types Packs/Day Years Used Date Smoking Tobacco: Former Smokeless Tobacco: Never Comments: quit smoking at 21 yrs old. sm oked 2 to 21/2 ppd Alcohol Use Standard Drinks/Week Comments Yes 2 (1 standard drink = 0.6 oz pure alcoho l) socially Sex Assigned at Date Recorded Not on file COVID-19 Exposure Response Date Recorded In the last month, have you been in contact with No / Unsure 05/31/2020 11:28 AM CDT someone who was confirmed or suspected to have Coronavirus / COVID-19? documented as of this encounter Plan of Treatment Scheduled Referrals Name Type Priority Associated Diagnoses Order S chedule Referral to CC - RN CC Referral Routine Other specified Or dered: 06/03/2020 counseling documented as of this encounter Visit Diagnoses Diagnosis Other specified counseling documented in this encounter Additional Health Concerns Assessment Noted Time PHQ-9 Depression Total Score: 2 05/31/2020 10:50 AM CD T documented as of this encounter Care Teams Forest Fire Management Officer Relationship Specialty Start Date End Date Kleber Ledesma PCP - General Physician Assembly Line Brazer - 05/15/14 RACHNA Valderrama Medical Junie Rm, Assigned PCP 06/02/20 06/08/20 RACHNA [address] [place] [address] Patricia Brown, RN Clinic Accident Investigator 06/03/20 06/03/20 documented as of this encounter
--- OUTSIDE RECORDS SUMMARY | 2022-01-05 11:32 | XMS_ITS | Encounter Summary ---
:1960 Author Organization [place] Address [address] [place] [address]. [place] [address] Care Team Providers Name Role Phone Kleber Ledesma PA-C Primary Care Provider [phone] Kleber Ledesma PA-C Unavailable [phone] Encounter Details Date Type Department Care Team Description 06/28/2020 Orders Only [facility] Kleber Ledesma itis of left lower extremity; Clinic Donna Valderrama PA-C Mixed hyperlipidemia Laboratory [address] [address] [place], [place] [address] [address] [place], [place] [phone] (Work) [phone] Social History Tobacco Use Types Packs/Day Years Used Date Smoking Tobacco: Former Smokeless Tobacco: Never Comments: quit smoking at 21 yrs old. sm oked 2 to 21 ppd Alcohol Use Standard Drinks/Week Comments Yes 2 (1 standard drink = 0.6 oz pure alcoho l) socially Sex Assigned at Date Recorded Not on file COVID-19 Exposure Response Date Recorded In the last month, have you been in contact with No / Unsure 06/28/2020 9:12 AM CDT someone who was confirmed or suspected to have Coronavirus / COVID-19? documented as of this encounter Plan of Treatment Not on filedocumented as of this encounter Procedures Procedure Name Priority Date/Time Associated Diagnosis Comme nts LIPID REFLEX TO Routine 06/28/2020 9:20 AM Mixed hyperlipidemi a Results for this DIRECT LDL PANEL CDT procedure a re in the results section. BASIC METABOLIC Routine 06/28/2020 9:20 AM Cellulitis of left Results for this PANEL CDT lower extremity procedure ar e in the results section. documented in this encounter Results (ABNORMAL) Lipid panel reflex to direct LDL Fasting (06/28/2020 9:20 AM CDT) P athologist Signature Cholesterol 243 (H) <200 mg/dL 06/28/2020 [place] 4:15 PM [facility] Comment: Desirable: <200 mg/dl Triglycerides 107 <150 mg/dL 06/28/2020 4:20 PM [facility] HDL Cholesterol 57 >49 mg/dL 06/28/2020 4:16 PM [facility] LDL Cholesterol 165 (H) <100 mg/dL 06/28/2020 4:20 PM [facility] Comment: Above desirable: ??100-129 mg/dl Borderline High: ??130-159 mg/dL High: ? 160-189 mg/dL Very high: ? >189 mg/dl Non HDL Cholesterol 186 (H) <130 mg/dL 06/28/2020 4:16 PM [facility] Comment: Above Desirable: ??130-159 mg/dl Borderline high: ??160-189 mg/dl High: ? 190-219 mg/dl Very high: ? >219 mg/dl Specimen Anatomical Collection Method Collection Time Receive d Time (Source) Location / / Volume Laterality Blood 06/28/2020 9:20 AM 9:21 CDT AM CDT Kleber Ledesma PA-C LAB - BLOOD ORDERABLES Performing Organization Address City/State/ZIP Code Phon e Number [facility] [address] [place], [place] [address] [facility] [address] [address] [facility] [phone] Basic metabolic panel (Ca, Cl, CO2, Creat, Gluc, K, Na, BUN) (06/28/2020 9:20 AM CDT) P athologist Signature Sodium 140 133 - 144 06/28/2020 [place] mmol/L 4:07 PM [facility] Potassium 4.0 3.4 - 5.3 06/28/2020 [place] mmol/L 4:07 PM [facility] Chloride 108 94 - 109 06/28/2020 [place] mmol/L 4:07 PM [facility] Carbon Dioxide 29 20 - 32 06/28/2020 [place] mmol/L 4:15 PM [facility] Anion Gap 3 3 - 14 06/28/2020 [place] mmol/L 4:15 PM [facility] Glucose 96 70 - 99 06/28/2020 [place] mg/dL 4:15 PM [facility] Urea Nitrogen 18 7 - 30 06/28/2020 [place] mg/dL 4:15 PM [facility] Creatinine 0.93 0.52 - 06/28/2020 [place] 1.04 mg/dL 4:15 PM [facility] GFR Estimate 66 >60 06/28/2020 [place] mL/min/{1. 4:15 PM [facility] 73_m2} [facility] Comment: Non GFR Calc Starting 01/25/2018, serum creatinine ba sed estimated GFR (eGFR) will be calculated using the Chronic Kidney Dise [facility] Epidemiology Collaboration (CKD-EPI) equation. GFR Estimate If 76 >60 mL/min/{1.73_m2} 06/28/2020 4: 15 PM [facility] Comment: GFR Calc Starting 01/25/2018, serum creatinine ba sed estimated GFR (eGFR) will be calculated using the Chronic Kidney Dise [facility] Epidemiology Collaboration (CKD-EPI) equation. Calcium 9.0 8.5 - 10.1 mg/dL 06/28/2020 4:15 PM [facility] Specimen Anatomical Collection Method Collection Time Receive d Time (Source) Location / / Volume Laterality Blood 06/28/2020 9:20 AM 9:21 CDT AM CDT Kleber Ledesma PA-C LAB - BLOOD ORDERABLES Performing Organization Address City/State/ZIP Code Phon e Number [facility] [address], [place] [address] [facility] [address] [place], [place] [address] [facility] [phone] documented in this encounter Visit Diagnoses Diagnosis Cellulitis of left lower extremity Cellulitis and abscess of leg, except fo ot Mixed hyperlipidemia documented in this encounter Additional Health Concerns Assessment Noted Time PHQ-9 Depression Total Score: 2 05/31/2020 10:50 AM CD T documented as of this encounter Care Teams Airborne Operations Manager Relationship Specialty Start Date End Date Kleber Ledesma, PCP - General Physician Cota - 05/15/14 [facility] Kleber Ledesma, Assigned PCP 06/09/20 [facility] [address] [place] [address] documented as of this encounter
--- OUTSIDE RECORDS SUMMARY | 2022-01-05 11:32 | XMS_ITS | Encounter Summary ---
:1960 Author Organization [place] Address [address] [place] [address] Care Team Providers Name Role Phone Kleber Ledesma PA-C Primary Care Provider [phone] Kleber Ledesma PA-C Unavailable [phone] Encounter Details Date Type Department Care Team Description 05/02/2021 Travel Social History Tobacco Use Types Packs/Day [...] been in contact with No / Unsure 05/02/2021 10:41 AM CDT someone who was confirmed or suspected to have Coronavirus / COVID-19? documented as of this encounter Plan of Treatment Not on filedocumented as of this encounter Visit Diagnoses Not on filedocumented in this encounter Additional Health Concerns Assessment Noted Time PHQ-9 Depression Total Score: 2 05/31/2020 10:50 AM CD T documented as of this encounter Care Teams Finisher [employer] Relationship Specialty Start Date End Date Kleber Ledesma, PCP - General Physician Spa Coordinator - 05/15/14 [facility] Kleber Ledesma, Assigned PCP 06/09/20 [facility] [address] [place] [address] documented as of this encounter
--- OUTSIDE RECORDS SUMMARY | 2022-01-05 11:32 | XMS_ITS | Encounter Summary ---
:1960 Author Organization [place] Address [address] [place] [address] Care Team Providers Name Role Phone Kleber Ledesma PA-C Primary Care Provider [phone] Kleber Ledesma PA-C Unavailable [phone] Encounter Details Date Type Department Care Team Description 12/23/2020 Travel Social History Tobacco Use Types Packs/Day [...] been in contact with No / Unsure 12/23/2020 10:40 AM [employer] someone who was confirmed or suspected to have Coronavirus / COVID-19? documented as of this encounter Plan of Treatment Not on filedocumented as of this encounter Visit Diagnoses Not on filedocumented in this encounter Additional Health Concerns Infection Onset Date Last Indicated Resolved Time Rule Out COVID-19 12/23/2020 12/23/2020 12/23/2020 6:3 0 PM [employer] Assessment Noted Time PHQ-9 Depression Total Score: 2 05/31/2020 10:50 AM CD T documented as of this encounter Care Teams Journalism Instructor Relationship Specialty Start Date End Date Kleber Ledesma, PCP - General Physician Graduate Recruiter - 05/15/14 [facility] Kleber Ledesma, Assigned PCP 06/09/20 [facility] [address] [place] [address] documented as of this encounter
--- OUTSIDE RECORDS SUMMARY | 2022-01-05 11:32 | XMS_ITS | Encounter Summary ---
:1960 Author Organization [place] Address [address] [place] [address]. [place] [address] Care Team Providers Name Role Phone Kleber Ledesma PA-C Primary Care Provider [phone] Kleber Ledesma PA-C Unavailable [phone] Reason for Referral Consultation (Routine: Next available opening) - Closed Specialty Diagnoses / Procedures Referred By Contact Refer red To Contact Diagnoses Abdominal pain, right lower quadrant Nausea and vomiting, intractability of vomiting not specified, unspecified vomiting type Luna Marin Ri [facility] [address] [facility] [address] [facility] [address] [place] [address] [place] [address] Phone: Fax: Referral ID Status Reason Start Date Expiration Date Visits Requ ested Visits Authorized [id number] Closed 03/26/2021 03/26/2022 1 1 TAKER Reason for Visit Reason Comments Urgent Care Chest Pain Chest pain burpy feeling chest burning pain mostly w/coug nausea and some vomiting-Unable to keep fluids down Encounter Details Date Type Department Care Team Description [facility], right lower quadrant (Primary Dx); Urgent Care Kavitha Gonzales PA-C Nausea and vomiting, intractability of v omiting not specified, unspecified vomiting type; [id number] [place] [address] Social History Tobacco Use Types Packs/Day Years [...] been in contact with No / Unsure 03/26/2021 12:39 PM NOTE TAKER someone who was confirmed or suspected to have Coronavirus / COVID-19? documented as of this encounter Last Filed Vital Signs Vital Sign Reading Time Taken Comments Blood Pressure 135/79 03/26/2021 12:43 PM NOTE TAKER Pulse 67 03/26/2021 12:43 PM NOTE TAKER Temperature 36.4 ??C (97.6 ??F) 03/26/2021 12:43 PM NOTE TAKER Respiratory Rate 16 03/26/2021 12:43 PM NOTE TAKER Oxygen Saturation 97% 03/26/2021 12:43 PM NOTE TAKER Inhaled Oxygen Concentration - - Weight - - Height - - Body Mass Index - - documented in this encounter Patient Instructions Patient InstructionsLuna Marin PA-C - 03/26/2021 12:45 PM NOTE TAKER Please head to to the Acute Diagnostic center in [place] for further evaluation. TAKER documented in this encounter Progress Notes Luna Marin PA-C - 03/26/2021 12:45 PM CST Assessment & Plan DDx: appendicitis, bowel obstruction, nephrolithiasis, diverticulitis, pancreatitis, hepatitis, GERD, etc.... Abdominal pain, right lower quadrant Noted on exam today. With her nausea, vomiting and diarrhea symptoms I have recommended further evaluation to r/o appendicitis vs other intra-abdominal abnormalities. Referral to the [facility] in [place].Patient agrees. - Referral to Acute and Diagnostic Services (Day of diagnostic / First order acute) Nausea and vomiting, intractability of vomiting not specified, unspecified vomiting type I have recommended further evaluation to r/o appendicitis vs other intra- abdominal abnormalities. Referral to the [facility] in [place]. Patient agrees. - Referral to Acute and Diagnostic Services (Day of diagnostic / First order acute) Chest discomfort Patient reports chest burning while vomiting 2 days ago. Her vitals are stable here. She had Covid5 weeks ago. Lungs clear on exam here. No SOB. We discussed possibly acid reflux. Doubt ACS. Doubt PE as no shortness of breath or hypoxia. Advised to keep monitoring symptoms. Follow up if any worsening symptoms. She agrees. Return today (on 03/26/2021) for Further evaluation. [facility] Jones [facility] Kimo Holloway is a 61 year old female who presents to clinic today for the following health issues: Chief Complaint Patient presents with ??? Urgent Care ??? Chest Pain Chest pain burpy feeling chest burning pain mostly w/coug nausea and some vomiting-Unable to keep fluids down HPI Patient is presenting to urgent care today with a complaint of nausea with vomiting, diarrhea, abdominal bloating, chest burning sensation. Onset of symptoms 2 days ago. No recorded fever, but felt feverish last night. No blood in the diarrhea. No blood in the emesis. No hematuria. No abnormal vaginal discharge. No dysuria. No history of GERD. Of note, she reports she tested positive for Covid 02/13/2021. Still has a lingering cough. No shortness of breath. Treatment tried Zofran, rest. No hx of previous abdominal surgeries. Last ate last night. Review of Systems Constitutional, HEENT, cardiovascular, pulmonary, GI, , musculoskeletal, neuro, skin, endocrine and psych systems are negative, except as otherwise noted. Objective BP 135/79 Pulse 67 Temp 97.6 ??F (36.4 ??C) (Tympanic) Resp 16 LMP 02/22/2010 (LMP Unknown) SpO2 97% No Physical Exam GENERAL: healthy, alert and no distress HENT: mouth without ulcers or lesions, throat is moist and pink RESP: lungs clear to auscultation - no rales, rhonchi or wheezes CV: regular rate and rhythm, normal S1 S2 ABDOMEN: soft, tender to palpation RLQ, no masses, bowel sounds normal MS: no gross musculoskeletal defects noted, no edema SKIN: no suspicious lesions or rashes TAKER documented in this encounter Plan of Treatment Scheduled Referrals Name Type Priority Associated Diagnoses Order S chedule Referral to Acute Referral Routine: Next Abdominal pain, right Expected: and Diagnostic available opening lower quadrant 03/26/2021 Services (Day of Nausea and vomiting, (Ap proximate), diagnostic / First intractability of Expi res: order acute) vomiting not specified, 03/11 unspecified vomiting type documented as of this encounter Visit Diagnoses Diagnosis Abdominal pain, right lower quadrant - P rimary Nausea and vomiting, intractability of v omiting not specified, unspecified vomiting type Chest discomfort Other chest pain documented in this encounter Additional Health Concerns Assessment Noted Time PHQ-9 Depression Total Score: 2 05/31/2020 10:50 AM CD T documented as of this encounter Care Teams Banking Management Consulting Manager Relationship Specialty Start Date End Date Kleber Ledesma, PCP - General Physician Shank Scourer - 05/15/14 [facility] Kleber Ledesma, Assigned PCP 06/09/20 [facility] [address] [place] [address] documented as of this encounter
--- OUTSIDE RECORDS SUMMARY | 2022-01-05 11:32 | XMS_ITS | Encounter Summary ---
:1960 Author Organization [place] Address [address] [place] [address]. [place] [address] Care Team Providers Name Role Phone Kleber Ledesma PA-C Primary Care Provider [phone] Kleber Ledesma PA-C Unavailable [phone] Reason for Visit Reason Comments Medication Refill Encounter Details Date Type Department Care Team Description 03/24/2021 Refill [facility] Kleber Ledesma, Medication Refill [place] [address] [address] [place] [address] [place] [address] [phone] (Wo rk) Social History Tobacco Use Types Packs/Day Years Used Date Smoking Tobacco: Former Smokeless Tobacco: Never Comments: quit smoking at 21 yrs old. sm oked 2 to 21/2 ppd Alcohol Use Standard Drinks/Week Comments Yes 2 (1 standard drink = 0.6 oz pure alcoho l) socially Sex Assigned at Date Recorded Not on file documented as of this encounter Miscellaneous Notes Telephone Encounter - Deisy Elizabeth RN - 03/26/2021 10:08 AM CST Prescription approved per [facility] Refill Protocol. Deisy Elizabeth RN ETICIAN documented in this encounter Plan of Treatment Not on filedocumented as of this encounter Visit Diagnoses Diagnosis Essential hypertension with goal blood p ressure less than 140/90 documented in this encounter Additional Health Concerns Assessment Noted Time PHQ-9 Depression Total Score: 2 05/31/2020 10:50 AM CD T documented as of this encounter Care Teams Employment Adjudicator Relationship Specialty Start Date End Date Kleber Ledesma, PCP - General Physician Stockbroking Dealer - 05/15/14 [facility] Kleber Ledesma, Assigned PCP 06/09/20 [facility] [address] [facility] [place] [address] documented as of this encounter
--- OUTSIDE RECORDS SUMMARY | 2022-01-05 11:32 | XMS_ITS | Encounter Summary ---
:1960 Author Organization [facility] Address [address] [place] [address]. [place] [address] Care Team Providers Name Role Phone Kleber Ng PA-C Primary Care Provider [phone] Kleber Ng PA-C Unavailable [phone] Reason for Referral Consultation (Routine: Next available opening) - Referral NOT Required Specialty Diagnoses / Procedures Referred By Contact Refer red To Contact Gastroenterology Diagnoses Diverticulosis of large intestine without hemorrhage Kleber Ng PA-C GASTROENTEROLOGY-ST [address] [place] [address] [address] [facility] [address] [place] [address] Phone: Fax: Referral ID Status Reason Start Date Expiration Date Visits V isits Requested Authorized [id number] Referral NOT 05/19/2021 05/19/2022 1 1 Required Reason for Visit Reason Comments Physical Pt fasting Urinary Frequency Hypertension Depression Encounter Details Date Type Department Care Team Description 05/19/[address] [facility] Kleber Gregorio general medical examination at a health care facility (Primary Dx); Clinic Donna Valderrama PA-C Dysuria; [id number] [address] [address] [address] Essential hypertension with goal blood p ressure less than 140/90; [address] Mild major depression (H); [place] [address] Mixed hyperlipidemia; [id number] Diverticulosis of large inte lino without hemorrhage Social History Tobacco Use Types Packs/Day Years [...] in contact with No / Unsu re 05/19/2021 1:18 PM CDT someone who was confirmed or suspected to have Coronavirus/COVID-19? documented as of this encounter Last Filed Vital Signs Vital Sign Reading Time Taken Comments Blood Pressure 110/66 05/19/2021 1:44 PM CDT Pulse 59 05/19/2021 1:44 PM CDT Temperature 36.6 ??C (97.8 ??F) 05/19/2021 1:44 PM CDT Respiratory Rate 16 05/19/2021 1:44 PM CDT Oxygen Saturation 97% 05/19/2021 1:44 PM CDT Inhaled Oxygen Concentration - - Weight 64.2 kg (141 lb 9.6 oz) 05/19/2021 1:44 PM CDT Height 154.3 cm (5' 0.75) 05/19/2021 1:44 PM CDT Body Mass Index 26.98 05/19/2021 1:44 PM CDT documented in this encounter Patient Instructions Patient InstructionsDesire Espinoza LPN - 05/19/2021 2:00 PM CDT Preventive Health Recommendations Female Ages 50 - 64 Yearly exam: See your health care provider every year in order to o Review health changes. o Discuss preventive care. o Review your medicines if your doctor has prescribed any. ??? Get a Pap test every three years (unless you have an abnormal result and your provider advises testing more often). ??? If you get Pap tests with HPV test, you only need to test every 5 years, unless you have an abnormal result. ??? You do not need a Pap test if your uterus was removed (hysterectomy) and you have not had cancer. ??? You should be tested each year for STDs (sexually transmitted diseases) if you're at risk. ??? Have a mammogram every 1 to 2 years. ??? Have a colonoscopy at age 50, or have a yearly FIT test (stool test). These exams screen for colon cancer. ??? Have a cholesterol test every 5 years, or more often if advised. ??? Have a diabetes test (fasting glucose) every three years. If you are at risk for diabetes, you should have this test more often. ??? If you are at risk for osteoporosis (brittle bone disease), think about having a bone density scan (DEXA). Shots: Get a flu shot each year. Get a tetanus shot every 10 years. Nutrition: ??? Eat at least 5 servings of fruits and vegetables each day. ??? Eat whole-grain bread, whole-wheat pasta and brown rice instead of white grains and rice. ??? Get adequate Calcium and Vitamin D. Lifestyle ??? Exercise at least 150 minutes a week (30 minutes a day, 5 days a week). This will help you control your weight and prevent disease. ??? Limit alcohol to one drink per day. ??? No smoking. ??? Wear sunscreen to prevent skin cancer. ??? See your dentist every six months for an exam and cleaning. ??? See your eye doctor every 1 to 2 years. documented in this encounter Progress Notes Kleber Ng PA-C - 05/19/2021 2:00 PM CDT SUBJECTIVE: CC: Amie Scott is an 61 year old woman who presents for preventive health visit. Patient has been advised of split billing requirements and indicates understanding: Yes Healthy Habits: Getting at least 3 servings of Calcium per day: NO Bi-annual eye exam: NO Dental care twice a year: NO Sleep apnea or symptoms of sleep apnea: Daytime drowsiness Diet: Regular (no restrictions) Frequency of exercise: 2-3 days/week Duration of exercise: 15-30 minutes Taking medications regularly: Yes Medication side effects: Not applicable PHQ-2 Total Score: 1 Additional concerns today: No Patient here for a physical. URINARY TRACT SYMPTOMS ?? Duration: about 3-4 days ?? Description dysuria, frequency, urgency, hesitancy and retention ?? Intensity: moderate ?? Accompanying signs and symptoms: Fever/chills: no Flank pain no Nausea and vomiting: no Vaginal symptoms: none (only discomfort with urination) Abdominal/Pelvic Pain: YES ?? History History of frequent UTI's: no History of kidney stones: no Sexually Active: YES Possibility of : No ?? Precipitating or alleviating factors: None ?? Therapies tried and outcome: increase fluid intake Outcome: cranberry juice Hypertension Follow-up ?? Do you check your blood pressure regularly outside of the clinic? Yes ?? Are you following a low salt diet? No ?? Are your blood pressures ever more than 140 on the top number (systolic) OR more than 90 on the bottom number (diastolic), for example 140/90? No Depression Followup ?? How are you doing with your depression since your last visit? stable ?? Are you having other symptoms that might be associated with depression? No ?? Have you had a significant life event? No ?? Are you feeling anxious or having panic attacks? No ?? Do you have any concerns with your use of alcohol or other drugs? No Social History Tobacco Use ??? Smoking status: Former Smoker ??? Smokeless tobacco: Never Used ??? Tobacco comment: quit smoking at 21 yrs old. smoked 2 to 21/2 ppd Vaping Use ??? Vaping Use: Never used Substance Use Topics ??? Alcohol use: Yes Alcohol/week: 2.0 standard drinks Types: 1 Glasses of wine, 1 Shots of liquor per week Comment: socially ??? Drug use: No PHQ 05/08/2019 10/18/2019 05/31/2020 PHQ-9 Total Score 0 3 2 Q9: Thoughts of better off /self-harm past 2 weeks Not at all Not at all Not at all MORENA-7 SCORE 01/13/2018 05/08/2019 05/31/2020 Total Score 2 (minimal anxiety) - - Total Score 2 0 4 Today's PHQ-2 Score: PHQ-2 (??1999 Pfizer) 05/19/2021 Q1: Little interest or pleasure in doing things 0 Q2: Feeling down, depressed or hopeless 1 PHQ-2 Score 1 PHQ-2 Total Score (12-17 Years)- Positive if 3 or more points; Administer PHQ-A if positive - Q1: Little interest or pleasure in doing things Not at all Q2: Feeling down, depressed or hopeless Several days PHQ-2 Score 1 Feeling a little tired, mood ok. Abuse: Current or Past (Physical, Sexual or Emotional) - No Do you feel safe in your environment? Yes Stopped statin a while ago. ++ FH of early heart disease. The 10-year ASCVD risk score (Amandeep DOUGLAS Jr., et al., 2013) is: 4.5% Values used to calculate the score: Age: 61 years Sex: Female Is Non- : No Diabetic: No Tobacco smoker: No Systolic Blood Pressure: 110 mmHg Is BP treated: Yes HDL Cholesterol: 57 mg/dL Total Cholesterol: 243 mg/dL Strong FH of heart disease, SD, bypass surgeries Social History Tobacco Use ??? Smoking status: Former Smoker ??? Smokeless tobacco: Never Used ??? Tobacco comment: quit smoking at 21 yrs old. smoked 2 to 31/03 ppd Substance Use Topics ??? Alcohol use: Yes Alcohol/week: 2.0 standard drinks Types: 1 Glasses of wine, 1 Shots of liquor per week Comment: socially Alcohol Use 05/19/2021 Prescreen: >3 drinks/day or >7 drinks/week? No Prescreen: >3 drinks/day or >7 drinks/week? - Reviewed orders with patient. Reviewed health maintenance and updated orders accordingly - Yes Labs reviewed in [facility] Breast Cancer Screening: Any new diagnosis of family breast, ovarian, or bowel cancer? No FHS-7: Breast CA Risk Assessment (FHS-7) 05/02/2021 05/19/2021 Did any of your first-degree relatives have breast or ovarian cancer? Yes Yes Did any of your relatives have bilateral breast cancer? No Unknown Did any man in your family have breast cancer? No No Did any woman in your family have breast and ovarian cancer? No Yes Did any woman in your family have breast cancer before age 50 y? No Yes Do you have 2 or more relatives with breast and/or ovarian cancer? No Unknown Do you have 2 or more relatives with breast and/or bowel cancer? Yes Yes Mammogram Screening: Recommended mammography every 1-2 years with patient discussion and risk factorconsideration Pertinent mammograms are reviewed under the imaging tab. History of abnormal Pap smear: NO - age 30-65 PAP every 5 years with negative HPV co-testing recommended PAP / HPV Latest Ref Rng & Units 10/04/2017 09/24/2014 PAP (Historical) - NIL NIL HPV16 NEG:Negative Negative - HPV18 NEG:Negative Negative - HRHPV NEG:Negative Negative - Reviewed and updated as needed this visit by clinical staff Tobacco Allergies Meds Med Hx Surg Hx Fam Hx Soc Hx Reviewed and updated as needed this visit by Provider Review of Systems Constitutional: Negative for chills and fever. HENT: Negative for congestion, ear pain, hearing loss and sore throat. Eyes: Negative for pain and visual disturbance. Respiratory: Negative for cough and shortness of breath. Cardiovascular: Negative for chest pain, palpitations and peripheral edema. Gastrointestinal: Positive for abdominal pain. Negative for constipation, diarrhea, heartburn, hematochezia and nausea. Breasts: Negative for tenderness, breast mass and discharge. Genitourinary: Positive for dysuria, frequency, pelvic pain and urgency. Negative for genital sores,hematuria, vaginal bleeding and vaginal discharge. Musculoskeletal: Negative for arthralgias, joint swelling and myalgias. Skin: Negative for rash. Neurological: Positive for headaches. Negative for dizziness, weakness and paresthesias. Psychiatric/Behavioral: Negative for mood changes. The patient is not nervous/anxious. OBJECTIVE: BP 110/66 Pulse 59 Temp 97.8 ??F (36.6 ??C) (Oral) Resp 16 Ht 1.543 m (5' 0.75) Wt 64.2 kg (141 lb 9.6 oz) LMP 02/22/2010 (LMP Unknown) SpO2 97% BMI 26.98 kg/m?? Physical Exam GENERAL: healthy, alert and no distress EYES: Eyes grossly normal to inspection, PERRL and conjunctivae and sclerae normal HENT: ear canals and TM's normal, nose and mouth without ulcers or lesions NECK: no adenopathy, no asymmetry, masses, or scars and thyroid normal to palpation RESP: lungs clear to auscultation - no rales, rhonchi or wheezes BREAST: normal without masses, tenderness or nipple discharge and no palpable axillary masses or adenopathy CV: regular rate and rhythm, normal S1 S2, no S3 or S4, no murmur, click or rub, no peripheral edemaand peripheral pulses strong ABDOMEN: soft, nontender, no hepatosplenomegaly, no masses and bowel sounds normal MS: no gross musculoskeletal defects noted, no edema SKIN: no suspicious lesions or rashes NEURO: Normal strength and tone, mentation intact and speech normal PSYCH: mentation appears normal, affect normal/bright Diagnostic Test Results: Labs reviewed in Epic ASSESSMENT/PLAN: (Z00.00) Routine general medical examination at a health care facility (primary encounter diagnosis) Comment: Plan: Comprehensive metabolic panel (R30.0) Dysuria Comment: Plan: UA Macro with Reflex to Micro and Culture - lab collect, Urine Microscopic, Urine Culture Aerobic Bacterial - lab collect, sulfamethoxazole-trimethoprim (BACTRIM DS) 800-160 MG tablet Rtc in the next 2-3 days if sxs change, worsen or fail to resolve with above tx. (I10) Essential hypertension with goal blood pressure less than 140/90 Comment: Plan: atenolol-chlorthalidone (TENORETIC) 50-25 MG tablet, Comprehensive metabolic panel BP controlled in clinic today. Refills given. (F32.0) Mild major depression (H) Comment: Plan: citalopram (CELEXA) 20 MG tablet, buPROPion (WELLBUTRIN) 75 MG tablet Mood well controlled but feeling a bit sluggish- add wellbutrin in the AM. (E78.2) Mixed hyperlipidemia Comment: Plan: Lipid panel reflex to direct LDL Fasting Discussed elevated lipids- she stopped taking her statin at one point a while back, Has sig FH of early heart disease. Will recheck and reconsider therapy. (K57.30) Diverticulosis of large intestine without hemorrhage Comment: Plan: Adult Gastro Ref - Consult Only She would like to discuss ongoing discomfort and known diverticulosis of the colon. Referral given. Patient has been advised of split billing requirements and indicates understanding: Yes COUNSELING: Reviewed preventive health counseling, as reflected in patient instructions Estimated body mass index is 26.98 kg/m?? as calculated from the following: Height as of this encounter: 1.543 m (5' 0.75). Weight as of this encounter: 64.2 kg (141 lb 9.6 oz). Weight management plan: Discussed healthy diet and exercise guidelines She reports that she has quit smoking. She has never used smokeless tobacco. Counseling Resources: ATP IV Guidelines Pooled Cohorts Equation Calculator Breast Cancer Risk Calculator BRCA-Related Cancer Risk Assessment: FHS-7 Tool FRAX Risk Assessment ICSI Preventive Guidelines Dietary Guidelines for Americans, 2010 USDA's MyPlate ASA Prophylaxis Lung CA Screening Kleber Ng PA-C [facility] documented in this encounter Miscellaneous Notes Addendum Note - Kleber Ng PA-C - 05/19/2021 2:00 PM CDT Addended by: KLEBER NG on: 06/01/2021 11:02 AM Modules accepted: Orders documented in this encounter Plan of Treatment Scheduled Referrals Name Type Priority Associated Diagnoses Order S chedule Adult Gastro Ref Referral Routine: Next Diverticulosis of large Expected: - Consult Only available opening intestine without 12/2021 hemorrhage (Approximate), Expires: 05/19/2022 documented as of this encounter Procedures Procedure Name Priority Date/Time Associated Diagnosis Comme nts LIPID REFLEX TO Routine 05/19/2021 2:40 Mixed hyperlipidemia R esults for this DIRECT LDL PANEL PM CDT procedure a re in the results section. COMPREHENSIVE Routine 05/19/2021 2:40 Essential hypertension R esults for this METABOLIC PANEL PM CDT with goal blood procedure are in pressure less than the resul ts 140/90 section. Routine general medical examination at a health care facility URINE MICROSCOPIC Routine 05/19/2021 1:38 Dysuria Results for this PM CDT procedure are i n the results section. UA MACROSCOPIC WITH Routine 05/19/2021 1:38 Dysuria Resul ts for this REFLEX TO MICRO AND PM CDT procedur e are in CULTURE the results section. URINE CULTURE Add-On 05/19/2021 1:38 Dysuria Results for this PM CDT procedure are i n the results section. documented in this encounter Results Comprehensive metabolic panel (05/19/2021 2:40 PM CDT) P athologist Signature Sodium 138 133 - 144 05/20/2021 [facility] mmol/L 8:45 AM CDT Potassium 4.1 3.4 - 5.3 05/20/2021 [facility] mmol/L 8:45 AM CDT Chloride 106 94 - 109 05/20/2021 [facility] mmol/L 8:45 AM CDT Carbon Dioxide 26 20 - 32 05/20/2021 [facility] (CO2) mmol/L 8:45 AM CDT Anion Gap 6 3 - 14 05/20/2021 [facility] mmol/L 8:45 AM CDT Urea Nitrogen 19 7 - 30 05/20/2021 [facility] mg/dL 8:45 AM CDT Creatinine 1.00 0.52 - 05/20/2021 [facility] 1.04 mg/dL 8:45 AM CDT Calcium 9.6 8.5 - 10.1 05/20/2021 [facility] mg/dL 8:45 AM CDT Glucose 86 70 - 99 05/20/2021 [facility] mg/dL 8:45 AM CDT Alkaline 68 40 - 150 05/20/2021 [facility] Phosphatase U/L 8:45 AM CDT AST 17 0 - 45 U/L 05/20/2021 [facility] 8:45 AM CDT ALT 33 0 - 50 U/L 05/20/2021 [facility] 8:45 AM CDT Protein Total 7.7 6.8 - 8.8 05/20/2021 [facility] g/dL 8:45 AM CDT Albumin 4.2 3.4 - 5.0 05/20/2021 [facility] g/dL 8:45 AM CDT Bilirubin Total 0.7 0.2 - 1.3 05/20/2021 [facility] mg/dL 8:45 AM CDT GFR Estimate 63 >60 05/20/2021 [facility] mL/min/1.7 8:45 AM CDT 3m2 Comment: Effective January 28, 2021 eGF Rcr in adults is calculated using the 2020 CKD-EPI creatinine equation which includ es age and gender (Chun et al., NEJM, DOI: 10.1056/AVBJjv9543913) Specimen Anatomical Collection Method / Collection Time Recei shaye Time (Source) Location / Volume Laterality Blood STRUCTURE OF RIGHT Venipuncture / 05/19/2021 2:40 04/02/2021 2:41 UPPER LIMB / Unknown PM CDT PM CDT Unknown Kleber Ng PA-C LAB - BLOOD ORDERABLES Performing Organization Address City/State/ZIP Code Phon e Number [facility] [place], [place] [phone] [place] [facility] [address] Lab (no room number, 1st floor of clinic) [facility] [place], [place] [phone] Clinic - [place] [address], [facility] [place] [facility] [address] Lab (no room number, 1st floor of clinic) (ABNORMAL) Lipid panel reflex to direct LDL Fasting (05/19/2021 2:40 PM CDT) [facility] Method Time Signature Cholesterol 252 (H) <200 05/20/2021 [facility] mg/dL 8:47 AM CDT Triglycerides 160 (H) <150 05/20/2021 [facility] mg/dL 8:47 AM CDT Direct Measure 56 >=50 05/20/2021 [facility] HDL mg/dL 8:47 AM CDT LDL Cholesterol 164 (H) <=100 05/20/2021 [facility] Calculated mg/dL 8:47 AM CDT Non HDL 196 (H) <130 05/20/2021 [facility] Cholesterol mg/dL 8:47 AM CDT Patient Fasting > No 05/20/2021 [facility] RY 8hrs? 8:47 AM CDT Specimen Anatomical Collection Method / Collection Time Recei shaye Time (Source) Location / Volume Laterality Blood STRUCTURE OF RIGHT Venipuncture / 05/19/2021 2:40 05/09 2:41 UPPER LIMB / Unknown PM CDT PM CDT Unknown Narrative [facility] - 05/20/2021 8:47 AM CDT Cholesterol Desirable: ??<200 mg/dL Triglycerides Normal: ??Less than 150 mg/dL Borderline High: ??150-199 mg/dL High: ??200-499 mg/dL Very High: ??Greater than or equal to 50 0 mg/dL Direct Measure HDL Female: ??Greater than or equal to 50 mg /dL Male: ??Greater than or equal to 40 mg/d L LDL Cholesterol Desirable: ??<100mg/dL Above Desirable: ??100-129 mg/dL Borderline High: ??130-159 mg/dL High: ??160-189 mg/dL Very High: ??>= 190 mg/dL Non HDL Cholesterol Desirable: ??130 mg/dL Above Desirable: ??130-159 mg/dL Borderline High: ??160-189 mg/dL High: ??190-219 mg/dL Very High: ??Greater than or equal to 22 0 mg/dL Kleber Ng PA-C LAB - BLOOD ORDERABLES Performing Organization Address City/[facility] Phon e Number OX LABORATORY [place], [place] [phone] [place] [facility] [address] Lab (no room number, 1st floor of clinic) [facility] [place], [place] [phone] [facility] [phone] [place] [facility] [address] Lab (no room number, 1st floor of clinic) Urine Culture Aerobic Bacterial - lab collect (05/19/2021 1:38 PM CDT) Patholo gist Method Time Signature Culture <10,000 CFU/mL NEELA 05/21/2021 [facility] Urogenital 8:00 AM CDT LABORATORY nikko Specimen Anatomical Collection Method Collection Time Receive d Time (Source) Location / / Volume Laterality Urine URINE SPECIMEN Non-blood 05/19/2021 1:38 PM 022 1:38 OBTAINED BY CLEAN Collection / CDT PM CDT CATCH PROCEDURE / Unknown Unknown Kleber Ng PA-C LAB - MICRO GENERAL ORDERABL ES Performing Organization Address City/[facility] Code Phon e Number UU IDD LABORATORY [facility] [place] [address] Diag. Lab [address] [facility], Room [address] (ABNORMAL) Urine Microscopic (05/19/2021 1:38 PM CDT) [facility] gist Method Time Signature Bacteria Urine Moderate (A) None Seen NEELA 05/19/2021 [facility] RY /HPF 1:51 PM CDT RBC Urine 0-2 0-2 /HPF NEELA 05/19/2021 [facility] /HPF 1:51 PM CDT WBC Urine 5-10 (A) 0-5 /HPF NEELA 05/19/2021 LABORATORY /HPF 1:51 PM CDT Squamous Few (A) None Seen NEELA 05/19/2021 LABORATORY Epithelials /LPF 1:51 PM CDT Urine Specimen Anatomical Collection Method Collection Time Receive d Time (Source) Location / / Volume Laterality Urine URINE SPECIMEN Non-blood 05/19/2021 1:38 PM 022 1:38 OBTAINED BY CLEAN Collection / CDT PM CDT CATCH PROCEDURE / Unknown Unknown Narrative LABORATORY - 05/19/2021 1:51 PM CDT Urine Culture not indicated Kleber Ng PA-C LAB - URINE ORDERABLES Performing Organization Address City/State/ZIP Code Phon e Number LABORATORY [facility] - [facility] [place] [address] Lab [address] [facility] Lab (no room number, 1st floor of clinic) [place] [address], [facility] [address] [facility] Lab (no room number, 1st floor of clinic) (ABNORMAL) UA Macro with Reflex to Micro and Culture - lab collect (05/19/2021 1:38 PM CDT) [facility] Method Time Signature Color Urine Yellow Colorless, 05/19/2021 LABORATORY Straw, Light 1:50 PM CDT Yellow, Yellow Appearance Urine Clear Clear 05/19/2021 LABORATOR Y 1:50 PM CDT Glucose Urine Negative Negative 05/19/2021 LABORATORY mg/dL 1:50 PM CDT Bilirubin Urine Negative Negative 05/19/2021 LABORATORY 1:50 PM CDT Ketones Urine Negative Negative 05/19/2021 LABORATORY mg/dL 1:50 PM CDT Specific [place] >=1.030 1.003 - 05/19/2021 LABORATOR Y Urine 1.035 1:50 PM CDT Blood Urine Small (A) Negative 05/19/2021 LABORATORY 1:50 PM CDT pH Urine 5.0 5.0 - 7.0 05/19/2021 LABORATORY 1:50 PM CDT Protein Albumin Negative Negative 05/19/2021 LABORATORY Urine mg/dL 1:50 PM CDT Urobilinogen 0.2 0.2, 1.0 05/19/2021 LABORATORY Urine E.U./dL 1:50 PM CDT Nitrite Urine Negative Negative 05/19/2021 LABORATORY 1:50 PM CDT Leukocyte Trace (A) Negative 05/19/2021 LABORATORY Esterase Urine 1:50 PM CDT Specimen Anatomical Collection Method Collection Time Receive d Time (Source) Location / / Volume Laterality Urine URINE SPECIMEN Non-blood 05/19/2021 1:38 PM 022 1:38 OBTAINED BY CLEAN Collection / CDT PM CDT CATCH PROCEDURE / Unknown Unknown Klebre Ng PA-C LAB - URINE ORDERABLES Performing Organization Address City/State/ZIP Code Phon e Number LABORATORY [facility] Clinic - [facility] [place] [address] Lab [address] [facility] Lab (no room number, 1st floor of clinic) LABORATORY [facility] [place] [address], [phone] [facility] [address] [facility] Lab (no room number, 1st floor of clinic) documented in this encounter Visit Diagnoses Diagnosis Routine general medical examination at a health care facility - Primary Dysuria Essential hypertension with goal blood p ressure less than 140/90 Mild major depression (H) Major depressive disorder, single episod e, mild Mixed hyperlipidemia Diverticulosis of large intestine withou t hemorrhage documented in this encounter Additional Health Concerns Assessment Noted Time PHQ-9 Depression Total Score: 3 05/19/2021 2:43 PM CDT documented as of this encounter Care Teams Compressor Battery Pellets Relationship Specialty Start Date End Date Kleber Ng, PCP - General Physician Philosophy Professor - 05/15/14 [facility] Kleber Ng, Assigned PCP 06/09/20 [facility] [address] [place] [address] documented as of this encounter
--- OUTSIDE RECORDS SUMMARY | 2022-01-05 11:32 | XMS_ITS | Encounter Summary ---
:1960 Author Organization [facility] Address [address] [place] [address]. [place] [address] Care Team Providers Name Role Phone Kleber Ledesma PA-C Primary Care Provider [phone] Kleber Ledesma PA-C Unavailable [phone] Reason for Visit Reason Comments Medication Refill Encounter Details Date Type Department Care Team Description 06/22/2021 Refill [facility] Kleber Ledesma, Medication Refill [place] BRISCOE [address] [address] [place] [address] [place] [address] [phone] (Wo rk) Social History Tobacco Use Types [...] this encounter Miscellaneous Notes Telephone Encounter - Kanchan Slater RN - 06/24/2021 4:41 PM CDT Prescription approved per [facility] Refill Protocol. Kanchan Slater RN on 06/24/2021 at 4:40 PM documented in this encounter Plan of Treatment Not on filedocumented as of this encounter Visit Diagnoses Diagnosis Seasonal allergic rhinitis, unspecified trigger documented in this encounter Additional Health Concerns Assessment Noted Time PHQ-9 Depression Total Score: 3 05/19/2021 2:43 PM CDT documented as of this encounter Care Teams Die Stamper Relationship Specialty Start Date End Date Kleber Ledesma, PCP - General Physician Mental Tester - 05/15/14 [facility] Kleber Ledesma, Assigned PCP 06/09/20 PA-C [id number] [place] [address] documented as of this encounter
--- OUTSIDE RECORDS SUMMARY | 2022-01-05 11:32 | XMS_ITS | Encounter Summary ---
:1960 Author Organization [facility] Address [address] [place] [address] Care Team Providers Name Role Phone Kleber Ledesma PA-C Primary Care Provider [phone] Kleber Ledesma PA-C Unavailable [phone] Encounter Details Date Type Department Care Team Description 05/19/2021 Travel Social History Tobacco Use Types Packs/Day [...] documented as of this encounter Care Teams Cat Skinner Relationship Specialty Start Date End Date Kleber Ledesma, PCP - General Physician Operations Administrative Assistant - 05/15/14 [facility] Kleber Ledesma, Assigned PCP 06/09/20 [facility] [address] [place] [address] documented as of this encounter
--- OUTSIDE RECORDS SUMMARY | 2022-01-05 11:32 | XMS_ITS | Encounter Summary ---
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 documented as of this encounter Plan of Treatment Not on filedocumented as of this encounter Visit Diagnoses Not on filedocumented in this encounter Additional Health Concerns Assessment Noted Time PHQ-9 Depression Total Score: 2 05/31/2020 10:50 AM CD T documented as of this encounter Care Teams Supervisor Crack Off Relationship Specialty Start Date End Date Kleber Ledesma, PCP - General Physician Barber Shop Operator - 05/15/14 [facility] Kleber Ledesma, Assigned PCP 06/09/20 [facility] [address] [place] [address] documented as of this encounter
--- OUTSIDE RECORDS SUMMARY | 2022-01-05 11:32 | XMS_ITS | Encounter Summary ---
:1960 Author Organization [facility] Address [address] [place] [address]. 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 documented as of this encounter Miscellaneous Notes Telephone Encounter - Deisy Elizabeth RN - 06/06/2020 3:08 PM CDT ~FYI~ Patient calling stating she is having side effects to the medication Flagyl---feeling light headed, nauseous and not sleeping well at night. She states that this happened to her before. She has decidedto STOP taking this medication but will continue taking the Doxycycline. She states her cellulitis is doing well. She will continue to monitor and if she has any further problems she will follow up. Deisy Elizabeth RN documented in this encounter Plan of Treatment Not on filedocumented as of this encounter Visit Diagnoses Not on filedocumented in this encounter Additional Health Concerns Assessment Noted Time PHQ-9 Depression Total Score: 2 05/31/2020 10:50 AM CD T documented as of this encounter Care Teams Drying Machine Tender Relationship Specialty Start Date End Date Kleber Ledesma, PCP - General Physician Sterile Technician - 05/15/14 [facility] Junie Rm PA-C Assigned PCP 06/02/20 06/08/20 [id number] [facility] [place] [address] Kleber Ledesma, Assigned PCP 06/09/20 [facility] [address] [place] [address] documented as of this encounter
--- OUTSIDE RECORDS SUMMARY | 2022-01-05 11:32 | XMS_ITS | Encounter Summary ---
:1960 Author Organization [facility] Address [address] [place] [id number] Care Team Providers Name Role Phone Kleber Ledesma PA-C Primary Care Provider [phone] Kleber Ledesma PA-C Unavailable [phone] Reason for Referral Diagnostic Imaging CT Scan (Routine) - Closed Specialty Diagnoses / Procedures Referred By Contact Refer red To Contact Diagnoses Abdominal pain, right lower quadrant Nausea and vomiting, intractability of vomiting not specified, unspecified vomiting type China Rdz, Procedures CT Abdomen Pelvis w Contrast PROPERTY OFFICER LICENSED SOCIAL WORKER [address] [place] [address] Referral ID Status Reason Start Date Expiration Date Visits Requ ested Visits Authorized [id number] Closed 03/26/2021 03/26/2022 1 1 DROPPER Reason for Visit Reason Comments Abdominal Pain Consultation (Routine: Next available opening) - Closed Specialty Diagnoses / Procedures Referred By Contact Refer red To Contact Diagnoses Abdominal pain, right lower quadrant Nausea and vomiting, intractability of vomiting not specified, unspecified vomiting type Luna Marin, [facility] [address] [address] [facility] [address] [place] [address] [place] [address] Phone: Fax: Referral ID Status Reason Start Date Expiration Date Visits Requ ested Visits Authorized [id number] Closed 03/26/2021 03/26/2022 1 1 Encounter Details Date Type Department Care Team Description 03/26/2021 Office Visit [facility] China Rdz Cough ( Primary Dx); Clinic José Luis Chavez APRN CNP Abdominal pain, right lower quadrant; [address] Nausea and vomiting, intract ability of vomiting not specified, unspecified vomiting type [address] [place], [place] [id number] Social History Tobacco Use Types Packs/Day Years [...] with No / Unsure 03/26/2021 12:39 PM PELT DROPPER someone who was confirmed or suspected to have Coronavirus / COVID-19? documented as of this encounter Last Filed Vital Signs Vital Sign Reading Time Taken Comments Blood Pressure 137/85 03/26/2021 4:33 PM PELT DROPPER Pulse 69 03/26/2021 4:33 PM PELT DROPPER Temperature 36.7 ??C (98 ??F) 03/26/2021 4:33 PM PELT DROPPER Respiratory Rate 18 03/26/2021 4:33 PM PELT DROPPER Oxygen Saturation 97% 03/26/2021 4:33 PM PELT DROPPER Inhaled Oxygen Concentration - - Weight 63.1 kg (139 lb 3.2 oz) 03/26/2021 2:08 PM PELT DROPPER Height - - Body Mass Index 26.3 12/23/2020 10:58 AM PELT DROPPER documented in this encounter Patient Instructions Patient InstructionsChina Rdz APRN LICENSED SOCIAL WORKER - 03/26/2021 2:15 PM PELT DROPPER Results for orders placed or performed during the hospital encounter of 03/26/21 CT Abdomen Pelvis w Contrast Status: None (Preliminary result) Narrative CT ABDOMEN/PELVIS WITH CONTRAST March 26, 2021 3:56 PM HISTORY: Right lower quadrant abdominal pain, appendicitis suspected (Age >= 14y). Abdominal pain, right lower quadrant. Nausea and vomiting, intractability of vomiting not specified, unspecified vomiting type. TECHNIQUE: CT abdomen and pelvis with 70mL Isovue-370 IV. Radiation dose for this scan was reduced using automated exposure control, adjustment of the mA and/or kV according to patient size, or iterative reconstruction technique. COMPARISON: CT abdomen/pelvis on 05/10/2004. FINDINGS: Lower chest: Bibasilar pulmonary opacities, likely atelectasis. Abdomen/pelvis: Hepatobiliary: Right upper quadrant postcholecystectomy clips. No suspicious focal hepatic lesion. Pancreas: No main pancreatic ductal dilatation or definite solid pancreatic mass. Spleen: No splenomegaly. Adrenal glands: No adrenal nodules. Kidneys: No radiodense kidney/ureteral stones or hydronephrosis in either kidney. Bowel: No abnormally dilated bowel loops. Extensive colonic diverticulosis predominantly over the sigmoid colon without CT evidence of acute diverticulitis. Appendix is visualized and appears normal. Peritoneum: No significant free fluid in the abdomen and pelvis. No free peritoneal or portal venous gas. Pelvic organs: Unremarkable. Vascular: Unremarkable. Lymph nodes: No significant abdominopelvic lymphadenopathy. Bones and soft tissue: No suspicious osseous lesion. Impression IMPRESSION: 1. No acute pathology in the abdomen and pelvis. 2. Extensive colonic diverticulosis without CT evidence of acute diverticulitis. Results for orders placed or performed in visit on 03/26/21 Comprehensive metabolic panel Status: Abnormal Result Value Ref Range Sodium 138 133 - 144 mmol/L Potassium 3.3 (L) 3.4 - 5.3 mmol/L Chloride 104 94 - 109 mmol/L Carbon Dioxide (CO2) 29 20 - 32 mmol/L Anion Gap 5 3 - 14 mmol/L Urea Nitrogen 20 7 - 30 mg/dL Creatinine 0.99 0.52 - 1.04 mg/dL Calcium 9.0 8.5 - 10.1 mg/dL Glucose 88 70 - 99 mg/dL Alkaline Phosphatase 62 40 - 150 U/L AST 22 0 - 45 U/L ALT 38 0 - 50 U/L Protein Total 7.3 6.8 - 8.8 g/dL Albumin 3.7 3.4 - 5.0 g/dL Bilirubin Total 0.7 0.2 - 1.3 mg/dL GFR Estimate 64 >60 mL/min/1.73m2 CRP inflammation Status: Abnormal Result Value Ref Range CRP Inflammation 23.5 (H) 0.0 - 8.0 mg/L CBC with platelets and differential Status: Abnormal Result Value Ref Range WBC Count 5.1 4.0 - 11.0 10e3/uL RBC Count 5.16 3.80 - 5.20 10e6/uL Hemoglobin 13.7 11.7 - 15.7 g/dL Hematocrit 44.4 35.0 - 47.0 % MCV 86 78 - 100 fL MCH 26.6 26.5 - 33.0 pg MCHC 30.9 (L) 31.5 - 36.5 g/dL RDW 13.3 10.0 - 15.0 % Platelet Count 271 150 - 450 10e3/uL % Neutrophils 50 % % Lymphocytes 35 % % Monocytes 12 % % Eosinophils 3 % % Basophils 0 % % Immature Granulocytes 0 % NRBCs per 100 WBC 0 <1 /100 Absolute Neutrophils 2.5 1.6 - 8.3 10e3/uL Absolute Lymphocytes 1.8 0.8 - 5.3 10e3/uL Absolute Monocytes 0.6 0.0 - 1.3 10e3/uL Absolute Eosinophils 0.2 0.0 - 0.7 10e3/uL Absolute Basophils 0.0 0.0 - 0.2 10e3/uL Absolute Immature Granulocytes 0.0 <=0.4 10e3/uL Absolute NRBCs 0.0 10e3/uL CBC with platelets differential Status: Abnormal Narrative The following orders were created for panel order CBC with platelets differential. Procedure Abnormality Status --------- ------ CBC with platelets and d...[[id number]] Abnormal Final result Please view results for these tests on the individual orders. No appendicitis or other GI cause for pain noted on CT. Atelectasis noted. Uncertain if this is active or residual from COVID 1 month ago. Contigency script for antibiotics given if not improving. DROPPER documented in this encounter Progress Notes China Rdz APRN CNP - 03/26/2021 2:15 PM CST Assessment & Plan Abdominal pain, right lower quadrant - Referral to Acute and Diagnostic Services (Day of diagnostic / First order acute) - CBC with platelets differential - Comprehensive metabolic panel - CRP inflammation - CT Abdomen Pelvis w Contrast; Future - IV access - sodium chloride (PF) 0.9% PF flush 3 mL - IV access Nausea and vomiting, intractability of vomiting not specified, unspecified vomiting type - Referral to Acute and Diagnostic Services (Day of diagnostic / First order acute) - CBC with platelets differential - Comprehensive metabolic panel - CRP inflammation - CT Abdomen Pelvis w Contrast; Future - IV access - sodium chloride (PF) 0.9% PF flush 3 mL - IV access Cough - amoxicillin-clavulanate (AUGMENTIN) 875-125 MG tablet; Take 1 tablet by mouth 2 times daily for 20doses - IV access Normal CT except discussed atelectasis noted on CT - may be residual from COVID 1 month ago but could trial a round of antibiotics. Pt unsure if she wants this Contigency script for antibiotics given if not improving. BMI: Estimated body mass index is 26.3 kg/m?? as calculated from the following: Height as of 12/23/20: 1.549 m (5' 1). Weight as of this encounter: 63.1 kg (139 lb 3.2 oz). Return in about 2 days (around 03/28/2021) for with regular provider if symptoms persist. China Rdz APRN LICENSED SOCIAL WORKER [facility] Kimo Holloway is a 61 year old who presents urgently to [facility] by referral from Luna BOURGEOIS to rule out appendicitis HPI Abdominal/Flank Pain Onset/Duration: Abdominal and low back pain Description: Character: Dull ache Location: right lower quadrant low back Radiation: Back Intensity: mild Progression of Symptoms: waxing and waning Accompanying Signs & Symptoms: Fever/Chills: no Gas/Bloating: no Nausea: no Vomitting: YES- Wednesday morning Diarrhea: YES- Wednesday night Constipation: no Dysuria or Hematuria: no History: Trauma: no Previous similar pain: no Previous tests done: no Previous Abdominal Surgery: no Precipitating factors: Does the pain change with: Food: no Bowel Movement: no Urination: no Other factors: no Therapies tried and outcome: Zofran, advil, rest Chest Pain Onset/Duration: Wednesday Description: Location: entire chest Character: sharp Radiation: across back Duration: waxing and waning with coughing Intensity: mild Progression of Symptoms: waxing and waning Accompanying Signs & Symptoms: Shortness of breath: no Sweating: no Nausea/vomiting: YES- related to abdominal upset Lightheadedness: YES Palpitations: YES- didn't take atenelol for past two days Fever/Chills: no Cough: YES- Post covid Heartburn: YES- in conjunction with abdominal pain, gastric upset History: Family history of heart disease: YES Tobacco use: no Previous similar symptoms: no Precipitating factors: Worse with exertion: no Worse with deep breaths: YES Related to eating: no Better with burping: no Alleviating factors: mild Therapies tried and outcome: zofran, advil, rest. Cough is persistent. COVID+ 5 weeks ago. Wasn't coughing for the first week then started. Since then intermittent cough hasn't stopped. Feels tight when she is coughing Had one episode of chest burning 3-4 days ago. Review of Systems Constitutional, HEENT, cardiovascular, pulmonary, GI, , musculoskeletal, neuro, skin, endocrine and psych systems are negative, except as otherwise noted. Objective BP 137/85 (BP Location: Left arm, Patient Position: Sitting, Cuff Size: Adult Regular) Pulse 69 Temp 98 ??F (36.7 ??C) (Oral) Resp 18 Wt 63.1 kg (139 lb 3.2 oz) LMP 02/22/2010 (LMP Unknown) SpO2 97% BMI 26.30 kg/m?? Body mass index is 26.3 kg/m??. Physical Exam GENERAL: healthy, alert and [...] no peripheral edemaand peripheral pulses strong ABDOMEN: soft without hepatosplenomegaly or masses, tenderness RLQ and bowel sounds normal MS: no gross musculoskeletal defects noted, no edema SKIN: no suspicious lesions or rashes NEURO: Normal strength and tone, mentation intact and speech normal PSYCH: mentation appears normal, affect normal/bright Results for orders placed or performed during the hospital encounter of 03/26/21 CT Abdomen Pelvis w Contrast Status: None Narrative CT ABDOMEN/PELVIS WITH CONTRAST March 26, 2021 3:56 PM HISTORY: Right lower quadrant abdominal pain, appendicitis suspected (Age >= 14y). Abdominal pain, right lower quadrant. Nausea and vomiting, intractability of vomiting not specified, unspecified vomiting type. TECHNIQUE: CT abdomen and pelvis with 70mL Isovue-370 IV. Radiation dose for this scan was reduced using automated exposure control, adjustment of the mA and/or kV according to patient size, or iterative reconstruction technique. COMPARISON: CT abdomen/pelvis on 05/10/2004. FINDINGS: Lower chest: Bibasilar pulmonary opacities, likely atelectasis. Abdomen/pelvis: Hepatobiliary: Right upper quadrant postcholecystectomy clips. No suspicious focal hepatic lesion. Pancreas: No main pancreatic ductal dilatation or definite solid pancreatic mass. Spleen: No splenomegaly. Adrenal glands: No adrenal nodules. Kidneys: No radiodense kidney/ureteral stones or hydronephrosis in either kidney. Bowel: No abnormally dilated bowel loops. Extensive colonic diverticulosis predominantly over the sigmoid colon without CT evidence of acute diverticulitis. Appendix is visualized and appears normal. Peritoneum: No significant free fluid in the abdomen and pelvis. No free peritoneal or portal venous gas. Pelvic organs: Unremarkable. Vascular: Unremarkable. Lymph nodes: No significant abdominopelvic lymphadenopathy. Bones and soft tissue: No suspicious osseous lesion. Impression IMPRESSION: 1. No acute pathology in the abdomen and pelvis. 2. Extensive colonic diverticulosis without CT evidence of acute diverticulitis. SHOSHANA LOVE MD Results for orders placed or performed in visit on 03/26/21 Comprehensive metabolic panel Status: Abnormal Result Value Ref Range Sodium 138 133 - 144 mmol/L Potassium 3.3 (L) 3.4 - 5.3 mmol/L Chloride 104 94 - 109 mmol/L Carbon Dioxide (CO2) 29 20 - 32 mmol/L Anion Gap 5 3 - 14 mmol/L Urea Nitrogen 20 7 - 30 mg/dL Creatinine 0.99 0.52 - 1.04 mg/dL Calcium 9.0 8.5 - 10.1 mg/dL Glucose 88 70 - 99 mg/dL Alkaline Phosphatase 62 40 - 150 U/L AST 22 0 - 45 U/L ALT 38 0 - 50 U/L Protein Total 7.3 6.8 - 8.8 g/dL Albumin 3.7 3.4 - 5.0 g/dL Bilirubin Total 0.7 0.2 - 1.3 mg/dL GFR Estimate 64 >60 mL/min/1.73m2 CRP inflammation Status: Abnormal Result Value Ref Range CRP Inflammation 23.5 (H) 0.0 - 8.0 mg/L CBC with platelets and differential Status: Abnormal Result Value Ref Range WBC Count 5.1 4.0 - 11.0 10e3/uL RBC Count 5.16 3.80 - 5.20 10e6/uL Hemoglobin 13.7 11.7 - 15.7 g/dL Hematocrit 44.4 35.0 - 47.0 % MCV 86 78 - 100 fL MCH 26.6 26.5 - 33.0 pg MCHC 30.9 (L) 31.5 - 36.5 g/dL RDW 13.3 10.0 - 15.0 % Platelet Count 271 150 - 450 10e3/uL % Neutrophils 50 % % Lymphocytes 35 % % Monocytes 12 % % Eosinophils 3 % % Basophils 0 % % Immature Granulocytes 0 % NRBCs per 100 WBC 0 <1 /100 Absolute Neutrophils 2.5 1.6 - 8.3 10e3/uL Absolute Lymphocytes 1.8 0.8 - 5.3 10e3/uL Absolute Monocytes 0.6 0.0 - 1.3 10e3/uL Absolute Eosinophils 0.2 0.0 - 0.7 10e3/uL Absolute Basophils 0.0 0.0 - 0.2 10e3/uL Absolute Immature Granulocytes 0.0 <=0.4 10e3/uL Absolute NRBCs 0.0 10e3/uL CBC with platelets differential Status: Abnormal Narrative The following orders were created for panel order CBC with platelets differential. Procedure Abnormality Status --------- ------ CBC with platelets and d...[[id number]] Abnormal Final result Please view results for these tests on the individual orders. DROPPER documented in this encounter Plan of Treatment Not on filedocumented as of this encounter Procedures Procedure Name Priority Date/Time Associated Diagnosis Comme nts CBC WITH PLATELETS STAT 03/26/2021 2:56 Abdominal pain, rig ht Results for this AND DIFFERENTIAL PM PELT DROPPER lower quadrant procedure are in Nausea and vomiting, the res ults intractability of section. vomiting not specified, unspecified vomiting type CBC WITH PLATELETS & STAT 03/26/2021 2:56 Abdominal pain, r ight Results for this DIFFERENTIAL PM PELT DROPPER lower quadrant procedure are in Nausea and vomiting, the res ults intractability of section. vomiting not specified, unspecified vomiting type CRP INFLAMMATION STAT 03/26/2021 2:56 Abdominal pain, right Results for this PM PELT DROPPER lower quadrant procedure are in Nausea and vomiting, the res ults intractability of section. vomiting not specified, unspecified vomiting type COMPREHENSIVE STAT 03/26/2021 2:56 Abdominal pain, right Re sults for this METABOLIC PANEL PM PELT DROPPER lower quadrant procedure are in Nausea and vomiting, the res ults intractability of section. vomiting not specified, unspecified vomiting type documented in this encounter Results CT Abdomen Pelvis w Contrast (03/26/2021 3:56 PM PELT DROPPER) Anatomical Region Laterality Modality Abdomen/Pelvis, SUBRAD CT BODY, UMP CT ABDOMEN PELVIS, Computed Tomography RAD CT Specimen (Source) Anatomical Location Collection Method / Collectio n Time Received Time / Laterality Volume Impressions 03/26/2021 4:25 PM PELT DROPPER IMPRESSION: 1. No acute pathology in the abdomen and pelvis. 2. Extensive colonic diverticulosis with out CT evidence of acute diverticulitis. SHOSHANA LOVE MD Narrative 03/26/2021 4:[address] ABDOMEN/PELVIS WITH CONTRAST March 26, 2021 3:56 PM HISTORY: Right lower quadrant abdominal pain, appendicitis suspected (Age >= 14y). Abdominal pain, right lowe r quadrant. Nausea and vomiting, intractability of vomiting not specified, unspecified vomiting type. TECHNIQUE: ??CT abdomen and pelvis with 70mL Isovue-370 IV. Radiation dose for this scan was reduced using aut omated exposure control, adjustment of the mA and/or kV according to patient size, or iterative reconstruction technique. COMPARISON: CT abdomen/pelvis on 5. FINDINGS: Lower chest: Bibasilar pulmonary opaciti es, likely atelectasis. Abdomen/pelvis: Hepatobiliary: Right upper quadrant post cholecystectomy clips. No suspicious focal hepatic lesion. Pancreas: No main pancreatic ductal dila tation or definite solid pancreatic mass. Spleen: No splenomegaly. Adrenal glands: No adrenal nodules. Kidneys: No radiodense kidney/ureteral s tones or hydronephrosis in either kidney. Bowel: No abnormally dilated bowel loops . Extensive colonic diverticulosis predominantly over the si gmoid colon without CT evidence of acute diverticulitis. Append ix is visualized and appears normal. Peritoneum: No significant free fluid in the abdomen and pelvis. No free peritoneal or portal venous gas. Pelvic organs: Unremarkable. Vascular: Unremarkable. Lymph nodes: No significant abdominopelv ic lymphadenopathy. Bones and soft tissue: No suspicious oss eous lesion. Procedure Note Shoshana Love MD - 03/26/2021Forma tting of this note might be different from the original. CT ABDOMEN/PELVIS WITH CONTRAST March 26, 2021 3:56 PM HISTORY: Right lower quadrant abdominal pain, appendicitis suspected (Age >= 14y). Abdominal pain, right lowe r quadrant. Nausea and vomiting, intractability of vomiting not specified, unspecified vomiting type. TECHNIQUE: CT abdomen and pelvis with 70 mL Isovue-370 IV. Radiation dose for this scan was reduced using aut omated exposure control, adjustment of the mA and/or kV according to patient size, or iterative reconstruction technique. COMPARISON: CT abdomen/pelvis on 5. FINDINGS: Lower chest: Bibasilar pulmonary opaciti es, likely atelectasis. Abdomen/pelvis: Hepatobiliary: Right upper quadrant post cholecystectomy clips. No suspicious focal hepatic lesion. Pancreas: No main pancreatic ductal dila tation or definite solid pancreatic mass. Spleen: No splenomegaly. Adrenal glands: No adrenal nodules. Kidneys: No radiodense kidney/ureteral s tones or hydronephrosis in either kidney. Bowel: No abnormally dilated bowel loops . Extensive colonic diverticulosis predominantly over the si gmoid colon without CT evidence of acute diverticulitis. Append ix is visualized and appears normal. Peritoneum: No significant free fluid in the abdomen and pelvis. No free peritoneal or portal venous gas. Pelvic organs: Unremarkable. Vascular: Unremarkable. Lymph nodes: No significant abdominopelv ic lymphadenopathy. Bones and soft tissue: No suspicious oss eous lesion. IMPRESSION: 1. No acute pathology in the abdomen and pelvis. 2. Extensive colonic diverticulosis with out CT evidence of acute diverticulitis. SHOSHANA LOVE MD China Rdz PROPERTY OFFICER LICENSED SOCIAL WORKER IMG CT ORDERABLES (ABNORMAL) CBC with platelets and differential (03/26/2021 2:56 PM PELT DROPPER) [facility] Method Time Signature WBC Count 5.1 4.0 - 03/26/2021 [facility] 11.0 3:07 PM PELT DROPPER 10e3/uL RBC Count 5.16 3.80 - 03/26/2021 [facility] 5.20 3:07 PM PELT DROPPER 10e6/uL Hemoglobin 13.7 11.7 - 03/26/2021 [facility] 15.7 g/dL 3:07 PM PELT DROPPER Hematocrit 44.4 35.0 - 03/26/2021 [facility] 47.0 % 3:07 PM PELT DROPPER MCV 86 78 - 100 03/26/2021 [facility] fL 3:07 PM PELT DROPPER MCH 26.6 26.5 - 03/26/2021 [facility] 33.0 pg 3:07 PM PELT DROPPER MCHC 30.9 (L) 31.5 - 03/26/2021 [facility] 36.5 g/dL 3:07 PM PELT DROPPER RDW 13.3 10.0 - 03/26/2021 [facility] 15.0 % 3:07 PM PELT DROPPER Platelet Count 271 150 - 450 03/26/2021 [facility] 10e3/uL 3:07 PM PELT DROPPER % Neutrophils 50 % 03/26/2021 [facility] 3:07 PM PELT DROPPER % Lymphocytes 35 % 03/26/2021 [facility] 3:07 PM PELT DROPPER % Monocytes 12 % 03/26/2021 [facility] 3:07 PM PELT DROPPER % Eosinophils 3 % 03/26/2021 [facility] 3:07 PM PELT DROPPER % Basophils 0 % 03/26/2021 [facility] 3:07 PM PELT DROPPER % Immature 0 % 03/26/2021 [facility] Granulocytes 3:07 PM PELT DROPPER NRBCs per 100 0 <1 /100 03/26/2021 [facility] WBC 3:07 PM PELT DROPPER Absolute 2.5 1.6 - 8.3 03/26/2021 [facility] Neutrophils 10e3/uL 3:07 PM PELT DROPPER Absolute 1.8 0.8 - 5.3 03/26/2021 [facility] Lymphocytes 10e3/uL 3:07 PM PELT DROPPER Absolute 0.6 0.0 - 1.3 03/26/2021 [facility] Monocytes 10e3/uL 3:07 PM PELT DROPPER Absolute 0.2 0.0 - 0.7 03/26/2021 [facility] Eosinophils 10e3/uL 3:07 PM PELT DROPPER Absolute 0.0 0.0 - 0.2 03/26/2021 [facility] Basophils 10e3/uL 3:07 PM PELT DROPPER Absolute 0.0 <=0.4 03/26/2021 [facility] Immature 10e3/uL 3:07 PM PELT DROPPER Granulocytes Absolute NRBCs 0.0 10e3/uL 03/26/2021 [facility] 3:07 PM PELT DROPPER Specimen Anatomical Collection Method / Collection Time Recei shaye Time (Source) Location / Volume Laterality Blood VENOUS LINE / Venipuncture / 03/26/2021 2:56 2 3:05 Unknown Unknown PM PELT DROPPER PM PELT DROPPER China Rdz APRN LICENSED SOCIAL WORKER LAB - BLOOD ORDERABLES Performing Organization Address City/[facility]/[place] [address] Care Lab [address] Lab (1st floor, no room number) (ABNORMAL) CRP inflammation (03/26/2021 2:56 PM PELT DROPPER) [facility] gist Method Time Signature CRP Inflammation 23.5 (H) 0.0 - 8.0 03/26/2021 [facility] Y mg/L 3:29 PM PELT DROPPER Specimen Anatomical Collection Method / Collection Time Recei shaye Time (Source) Location / Volume Laterality Blood VENOUS LINE / Venipuncture / 03/26/2021 2:56 2 3:05 Unknown Unknown PM PELT DROPPER PM PELT DROPPER China Rdz APRN LICENSED SOCIAL WORKER LAB - BLOOD ORDERABLES Performing Organization Address City/[facility]/ZIP Code [place] [phone] Care Lab [address] Lab (1st floor, no room number) (ABNORMAL) Comprehensive metabolic panel (03/26/2021 2:56 PM PELT DROPPER) [facility] Method Time Signature Sodium 138 133 - 144 03/26/2021 [facility] mmol/L 3:29 PM PELT DROPPER Potassium 3.3 (L) 3.4 - 5.3 03/26/2021 [facility] mmol/L 3:29 PM PELT DROPPER Chloride 104 94 - 109 03/26/2021 [facility] mmol/L 3:29 PM PELT DROPPER Carbon Dioxide 29 20 - 32 03/26/2021 LAB[facility]ATORY (CO2) mmol/L 3:29 PM PELT DROPPER Anion Gap 5 3 - 14 03/26/2021 [facility] mmol/L 3:29 PM PELT DROPPER Urea Nitrogen 20 7 - 30 03/26/2021 [facility] mg/dL 3:29 PM PELT DROPPER Creatinine 0.99 0.52 - 03/26/2021 [facility] 1.04 mg/dL 3:29 PM PELT DROPPER Calcium 9.0 8.5 - 10.1 03/26/2021 [facility] mg/dL 3:29 PM PELT DROPPER Glucose 88 70 - 99 03/26/2021 [facility] mg/dL 3:29 PM PELT DROPPER Alkaline 62 40 - 150 03/26/2021 [facility] Phosphatase U/L 3:29 PM PELT DROPPER AST 22 0 - 45 U/L 03/26/2021 [facility] 3:29 PM PELT DROPPER ALT 38 0 - 50 U/L 03/26/2021 [facility] 3:29 PM PELT DROPPER Protein Total 7.3 6.8 - 8.8 03/26/2021 [facility] g/dL 3:29 PM PELT DROPPER Albumin 3.7 3.4 - 5.0 03/26/2021 [facility] g/dL 3:29 PM PELT DROPPER Bilirubin Total 0.7 0.2 - 1.3 03/26/2021 [facility] mg/dL 3:29 PM PELT DROPPER GFR Estimate 64 >60 03/26/2021 [facility] mL/min/1.7 3:29 PM PELT DROPPER 3m2 Comment: Effective January 28, 2021 eGF Rcr in adults is calculated using the 2020 CKD-EPI creatinine equation which includ es age and gender (Chun et al., NEJ, DOI: 10.1056/CXTUtq2725794) Specimen Anatomical Collection Method / Collection Time Recei shaye Time (Source) Location / Volume Laterality Blood VENOUS LINE / Venipuncture / 03/26/2021 2:56 2 3:05 Unknown Unknown PM PELT DROPPER PM PELT DROPPER China Rdz ETHAN LICENSED SOCIAL WORKER LAB - BLOOD ORDERABLES Performing Organization Address City/State/ZIP Code [place] [address] Care Lab [address] Lab (1st floor, no room number) documented in this encounter Visit Diagnoses Diagnosis Cough - Primary Abdominal pain, right lower quadrant Nausea and vomiting, intractability of v omiting not specified, unspecified vomiting type Abdominal pain, right lower quadrant Nausea and vomiting, intractability of v omiting not specified, unspecified vomiting type documented in this encounter Administered Medications Inactive Administered Medications - up to 3 most recent administrations Medication Order MAR Action Action Date Dose Rate Site sodium chloride (PF) 0.9% PF flush Given 03/26/2021 2:56 PM PELT DROPPER 3 mLs 3 mL 3 mL, Intravenous, EVERY 1 MIN PRN, line flush, Starting on Wed03/26/21 at 1441, For 12 hours documented in this encounter Additional Health Concerns Assessment Noted Time PHQ-9 Depression Total Score: 2 05/31/2020 10:50 AM CD T documented as of this encounter Care Teams Insurance Agent Relationship Specialty Start Date End Date Kleber Ledesma, PCP - General Physician Signal Supervisor - 05/15/14 [facility] Medical Kleber Ledesma, Assigned PCP 06/09/20 RACHNA [address] [place] [address] documented as of this encounter
--- OUTSIDE RECORDS SUMMARY | 2022-01-05 11:32 | XMS_ITS | Encounter Summary ---
:1960 Author Organization [facility] Address [address] [place] [address] Care Team Providers Name Role Phone Kleber Ledesma PA-C Primary Care Provider [phone] Kleber Ledesma PA-C Unavailable [phone] Encounter Details Date Type Department Care Team Description 06/14/2020 Travel Social History Tobacco Use Types Packs/Day [...] been in contact with No / Unsure 06/14/2020 12:53 PM CDT someone who was confirmed or suspected to have Coronavirus / COVID-19? documented as of this encounter Plan of Treatment Not on filedocumented as of this encounter Visit Diagnoses Not on filedocumented in this encounter Additional Health Concerns Assessment Noted Time PHQ-9 Depression Total Score: 2 05/31/2020 10:50 AM CD T documented as of this encounter Care Teams Money Room Supervisor Relationship Specialty Start Date End Date Kleber Ledesma, PCP - General Physician Manager User Experience - 05/15/14 [facility] Medical Kleber Ledesma, Assigned PCP 06/09/20 RACHNA [address] [place] [address] documented as of this encounter
--- OUTSIDE RECORDS SUMMARY | 2022-01-05 11:32 | XMS_ITS | Encounter Summary ---
:1960 Author Organization [facility] Address [address] [place] [address] Care Team Providers Name Role Phone Kleber Ledesma PA-C Primary Care Provider [phone] Kleber Ledesma PA-C Unavailable [phone] Encounter Details Date Type Department Care Team Description 04/14/2021 Travel Social History Tobacco Use Types Packs/Day [...] been in contact with No / Unsure 04/14/2021 2:48 PM EXTENSION SERVICE AGENT someone who was confirmed or suspected to have Coronavirus / COVID-19? documented as of this encounter Plan of Treatment Not on filedocumented as of this encounter Visit Diagnoses Not on filedocumented in this encounter Additional Health Concerns Assessment Noted Time PHQ-9 Depression Total Score: 2 05/31/2020 10:50 AM CD T documented as of this encounter Care Teams Materials Engineering Technician Relationship Specialty Start Date End Date Kleber Ledesma, PCP - General Physician Company Doctor - 05/15/14 [facility] Medical Kleber Ledesma, Assigned PCP 06/09/20 RACHNA [address] [place] [address] documented as of this encounter
--- OUTSIDE RECORDS SUMMARY | 2022-01-05 11:32 | XMS_ITS | Encounter Summary ---
:1960 Author Organization [facility] Address [address] [place] [address]. [place] [address] Care Team Providers Name Role Phone Kleber Ledesma PA-C Primary Care Provider [phone] Kleber Ledesma PA-C Unavailable [phone] Reason for Visit Reason Comments Medication Refill Encounter Details Date Type Department Care Team Description 06/17/2020 Refill [facility] Kleber Ledesma, Medication Refill [place] RACHNA [address] [facility], [address] [place] [address] [place] [address] [place] [address] [phone] Social History Tobacco Use Types Packs/Day Years Used Date Smoking Tobacco: Former Smokeless Tobacco: Never Comments: quit smoking at 21 yrs old. sm oked 2 to 20/ ppd Alcohol Use Standard Drinks/Week Comments Yes [...] this encounter Miscellaneous Notes Telephone Encounter - Kendra Obando - 06/27/2020 7:26 AM CDT Amie is scheduled for labs on 06/28/20 Telephone Encounter - Amanda Torres - 06/20/2020 11:53 AM CDT Sent Clear-Data Analyticst message to scheduled labs .Daphne Torres- Bioprocessing Manufacturing Technician Telephone Encounter - Kleber Ledesma PA-C - 06/20/2020 11:44 AM CDT I put in a future BMP last month. Please let her know to make a lab appointment for this. I will refill Rx. Kleber Telephone Encounter - Ruth Jones RN - 06/19/2020 2:10 PM CDT Routing refill request to provider for review/approval because: Labs out of range: Steven Kline RN documented in this encounter Plan of Treatment Not on filedocumented as of this encounter Visit Diagnoses Diagnosis Essential hypertension with goal blood p ressure less than 140/90 documented in this encounter Additional Health Concerns Assessment Noted Time PHQ-9 Depression Total Score: 2 05/31/2020 10:50 AM CD T documented as of this encounter Care Teams Traffic Lieutenant Relationship Specialty Start Date End Date Kleber Ledesma, PCP - General Physician Information Resource Consultant - 05/15/14 [facility] Medical Kleber Ledesma, Assigned PCP 06/09/20 RACH[facility] [address] [place] [address] documented as of this encounter
--- OUTSIDE RECORDS SUMMARY | 2022-01-05 11:32 | XMS_ITS | Encounter Summary ---
:1960 Author Organization [facility] Address [address] [place] [address]. [place] [address] Care Team Providers Name Role Phone Kleber Ledesma PA-C Primary Care Provider [phone] Kleber Ledesma PA-C Unavailable [phone] Reason for Visit Reason Comments Sick vomiting - diarrhea, nausea - lightheaded x SAT night- she was at a birthday constitution party that- may be from some chili - nothing is staying down Encounter Details Date Type Department Care Team Description 12/23/2020 Office Visit [facility] Fraga, Marley, Viral ga stroenteritis [facility] RACHNA (Primary Dx) [facility] [address] [place] [address] [facility] [address] [place], [place] [phone] [id number] Social History Tobacco Use Types Packs/Day Years [...] with No / Unsure 12/23/2020 10:40 AM MANUFACTURING TEST ENGINEER someone who was confirmed or suspected to have Coronavirus / COVID-19? documented as of this encounter Last Filed Vital Signs Vital Sign Reading Time Taken Comments Blood Pressure 116/66 12/23/2020 10:58 AM MANUFACTURING TEST ENGINEER Pulse 100 12/23/2020 10:58 AM MANUFACTURING TEST ENGINEER Temperature 37.2 ??C (99 ??F) 12/23/2020 10:58 AM MANUFACTURING TEST ENGINEER Respiratory Rate - - Oxygen Saturation 98% 12/23/2020 10:58 AM MANUFACTURING TEST ENGINEER Inhaled Oxygen Concentration - - Weight 65.8 kg (145 lb) 12/23/2020 10:58 AM MANUFACTURING TEST ENGINEER Height 154.9 cm (5' 1) 12/23/2020 10:58 AM MANUFACTURING TEST ENGINEER Body Mass Index 27.4 12/23/2020 10:58 AM MANUFACTURING TEST ENGINEER documented in this encounter Patient Instructions Patient InstructionsAlMarley soto PA-C - 12/23/2020 11:25 AM CST Patient was educated on the natural course of condition which lasts about 7 days. Conservative measures discussed including drinking small amounts of fluids (Pedialyte or Gatorade/water mixture), blanddiet, avoidance of dairy products, and analgesics (Tylenol) for pain. Advance diet as tolerated. To avoid transmission wash hands with soap/water and clean external house surfaces with bleach water. See your primary care provider if symptoms do not improve in 3 days. Seek emergency care if you developworsening abdominal pain or fever over 103. FACTURING TEST ENGINEER documented in this encounter Progress Notes Marley Fraga PA-C - 12/23/2020 11:25 AM CST URGENT CARE VISIT: SUBJECTIVE: Amie Scott is a 60 year old female who presents with abdominal pain for 2 days. Abdominal pain is located over Generalized and is described as cramping. Pain timing/severity is described as gradual onset and moderate. Pain is improved by nothing and worsened by eating. Associated symptoms includenausea, vomiting and diarrhea. She denies fever and chills. She has tried fluids with no relief of symptoms. Appetite is decreased. Risk factors include ate chili that had been sitting out a while. Abdominal surgical history includes none. PMH: Past Medical History: Diagnosis Date ??? Chest discomfort ??? High cholesterol ??? Hypertension ??? Moderate persistent asthma 2005 cold air trigger Allergies: No known drug allergies Medications: Current Outpatient Medications Medication Sig Dispense Refill ??? amoxicillin-clavulanate (AUGMENTIN) 875-125 MG tablet Take 1 tablet by mouth 2 times daily for 10 days 20 tablet 0 ??? atenolol-chlorthalidone (TENORETIC) 50-25 MG tablet TAKE ONE TABLET BY MOUTH EVERY DAY 90 tablet1 ??? cetirizine (ZYRTEC ALLERGY) 10 MG tablet Take 1 tablet (10 mg) by mouth daily 90 tablet 3 ??? citalopram (CELEXA) 20 MG tablet Take 1 tablet (20 mg) by mouth daily 90 tablet 1 ??? dicyclomine (BENTYL) 20 MG tablet Take 1 tablet (20 mg) by mouth 4 times daily as needed (abdominal cramping) 40 tablet 0 ??? guaiFENesin-dextromethorphan (ROBITUSSIN DM) 100-10 MG/5ML syrup Take 10 mLs by mouth 4 times daily as needed for cough 254 mL 0 ??? methylPREDNISolone (MEDROL DOSEPAK) 4 MG tablet therapy pack Follow Package Directions 21 tablet0 ??? ondansetron (ZOFRAN-ODT) 4 MG ODT tab Take 1 tablet (4 mg) by mouth every 8 hours as needed for nausea 9 tablet 0 Social History: Social History Socioeconomic History ??? Marital status: Spouse name: Not on file ??? Number of children: Not on file ??? Years of education: Not on file ??? Highest education level: Not on file Occupational History ??? Not on file Tobacco Use ??? Smoking status: Former Smoker ??? Smokeless tobacco: Never Used ??? Tobacco comment: quit smoking at 21 yrs old. smoked 2 to 20/2 ppd Vaping Use ??? Vaping Use: Never used Substance and Sexual Activity ??? Alcohol use: Yes Alcohol/week: 2.0 standard drinks Types: 1 Glasses of wine, 1 Shots of liquor per week Comment: socially ??? Drug use: No ??? Sexual activity: Yes Partners: Male Other Topics Concern ??? Parent/sibling w/ CABG, NC or angioplasty before 65F 55M? Yes ??? Service Not Asked ??? Blood Transfusions Not Asked ??? Caffeine Concern No Comment: 2-3 cups of coffee a day ??? Occupational Exposure Not Asked ??? Hobby Hazards Not Asked ??? Sleep Concern Yes Comment: not at all, take gabapentin at night ??? Stress Concern No ??? Weight Concern No ??? Special Diet No ??? Back Care Not Asked ??? Exercise No Comment: works at [employer]- lots of walking ??? Bike Helmet Not Asked ??? Seat Belt Yes ??? Self-Exams Not Asked Social History Narrative ??? Not on file Social Determinants of Health Financial Resource Strain: Not on file Food Insecurity: Not on file Transportation Needs: Not on file Physical Activity: Not on file Stress: Not on file Social Connections: Not on file Intimate Partner Violence: Not on file Housing Stability: Not on file ROS: ROS otherwise found to be negative except as noted above. OBJECTIVE: BP 116/66 (BP Location: Right arm, Patient Position: Chair, Cuff Size: Adult Regular) Pulse 100 Temp 99 ??F (37.2 ??C) (Oral) Ht 1.549 m (5' 1) Wt 65.8 kg (145 lb) LMP 02/22/2010 (LMP Unknown) SpO2 98% No BMI 27.40 kg/m?? GENERAL APPEARANCE: healthy, alert and no distress EYES: EOMI, PERRL, conjunctiva clear RESP: lungs clear to auscultation - no rales, rhonchi or wheezes CV: regular rates and rhythm, normal S1 S2, no murmur noted ABDOMEN: soft, normal bowel sounds, tenderness mild generalized SKIN: no suspicious lesions or rashes ASSESSMENT: ICD-10-CM 1. Viral gastroenteritis A08.4 Symptomatic COVID-19 Virus (Coronavirus) by PCR Nose ondansetron (ZOFRAN-ODT) 4 MG ODT tab PLAN: Patient Instructions Patient was educated on the natural course of condition which lasts about 7 days. Conservative measures discussed including drinking small amounts of fluids (Pedialyte or Gatorade/water mixture), blanddiet, avoidance of dairy products, and analgesics (Tylenol) for pain. Advance diet as tolerated. To avoid transmission wash hands with soap/water and clean external house surfaces with bleach water. See your primary care provider if symptoms do not improve in 3 days. Seek emergency care if you developworsening abdominal pain or fever over 103. Patient verbalized understanding and is agreeable to plan. The patient was discharged ambulatory andin stable condition. Marley Fraga, PA-C .................... 12/23/2020 11:29 AM FACTURING TEST ENGINEER documented in this encounter Plan of Treatment Not on filedocumented as of this encounter Procedures Procedure Name Priority Date/Time Associated Diagnosis Comme nts COVID-19 VIRUS STAT 12/23/2020 11:07 Viral gastroenteritis Results for this (CORONAVIRUS) BY AM MANUFACTURING TEST ENGINEER procedure a re in PCR the results section. documented in this encounter Results Symptomatic COVID-19 Virus (Coronavirus) by PCR Nose (12/23/2020 11:07 AM MANUFACTURING TEST ENGINEER) [facility] Method Time Signature SARS CoV2 PCR Negative Negative, 12/23/2020 [facility] Testing sent to 6:30 PM MANUFACTURING TEST ENGINEER LABORATORY reference lab. Results will be returned via unsolicited result Comment: NEGATIVE: SARS-CoV-2 (COVID-19) RNA not detected, presumed negative. Specimen Anatomical Collection Method Collection Time Receive d Time (Source) Location / / Volume Laterality Swab NASAL STRUCTURE / Non-blood 12/23/2020 11:07 2020 Unknown Collection / AM MANUFACTURING TEST ENGINEER 11:12 AM MANUFACTURING TEST ENGINEER Unknown Narrative [facility] - 12/23/2020 6:[address] Testing was performed using the Xpert Xpress SARS-CoV-2 Assay on the [employer] Gene-Xpert Instrument Systems. A dditional information about this Emergency Use Authorization (EUA) a ssay can be found via the Lab Guide. This test should be ordered for t he detection of SARS-CoV-2 in individuals who meet SARS-CoV-2 clinical and/or epidemiological criteria. Test performance is unknown in asymptomatic patients. This test is for in vitro diagnostic use unde r the FDA EUA for laboratories certified under CLIA to per form high complexity testing. This test has not been FDA cleared or ap proved. A negative result does not rule out the presence of PCR in hibitors in the specimen or target RNA in concentration below the li mandi of detection for the assay. The possibility of a false negati ve should be considered if the patient's recent exposure or clinica l presentation suggests COVID-19. This test was validated by the [facility] Infectious Diseases Diagnostic [facility]. This lab oratory is certified under the Clinical Laboratory Improvement Amen dments of 1988 (CLIA-88) as qualified to perform high complexity lab oratory testing. Sarah Clemons NP LAB - MICRO GENERAL ORDERABL ES Performing Organization Address City/State/ZIP Code Phon e Number [facility] [place] [phone] Diag. Lab [address] [facility], [address] [facility] Infectious [place], [place] [phone] Diseases Diagnostic [id number], [facility] Lab (IDDL) [address] [facility], Room [address]297 documented in this encounter Visit Diagnoses Diagnosis Viral gastroenteritis - Primary Intestinal infection due to other organi sm, not elsewhere classified documented in this encounter Additional Health Concerns Infection Onset Date Last Indicated Resolved Time Rule Out COVID-19 12/23/2020 12/23/2020 12/23/2020 6:3 0 PM MANUFACTURING TEST ENGINEER Assessment Noted Time PHQ-9 Depression Total Score: 2 05/31/2020 10:50 AM CD T documented as of this encounter Care Teams Gas Roller Operator Relationship Specialty Start Date End Date Kleber Ledesma, PCP - General Physician Masonry Inspector - 05/15/14 PADeanneC Medical Kleber Ledesma, Assigned PCP 06/09/20 RACHNA [address] [place] [address] documented as of this encounter
--- OUTSIDE RECORDS SUMMARY | 2022-01-05 11:32 | XMS_ITS | Encounter Summary ---
:1960 Author Organization [facility] Address [address] [place] [address]. [place] [address] Care Team Providers Name Role Phone Kleber Ledesma PA-C Primary Care Provider [phone] Kleber Ledesma PA-C Unavailable [phone] Reason for Referral Diagnostic Imaging Mammo (Routine) - Pending Review Specialty Diagnoses / Procedures Referred By Contact Refer red To Contact Diagnoses Breast cancer screening by mammogram Kleber Ledesma, Procedures MA Screen Bilateral w/Russell PA-C [address] [facility] [place] [address] Referral ID Status Reason Start Date Expiration Date Visits V isits Requested Authorized [id number] Pending 04/14/2021 04/14/2022 1 1 Review Reason for Visit Diagnostic Imaging Mammo (Routine) - Pending Review Specialty Diagnoses / Procedures Referred By Contact Refer red To Contact Diagnoses Breast cancer screening by mammogram Kleber Ledesma, Procedures MA Screen Bilateral w/Russell PA-C [address] [place] [address] Referral ID Status Reason Start Date Expiration Date Visits V isits Requested Authorized [id number] Pending 04/14/2021 04/14/2022 1 1 Review Encounter Details Date Type Department Care Team Description 05/02/[address] [facility] Kleber Gregorio Breast cancer [facility] Breast RACHNA [place] screening by [place] [address] [place] mammogram [address] [facility], [address] [place] [id number] Social History Tobacco Use Types Packs/Day Years [...] / COVID-19? documented as of this encounter Medications at Time of Discharge Medication Sig Dispensed Refills Start Date End Date atenolol-chlorthalidone TAKE ONE TABLET BY 90 tablet 0 03/1105/19/2021 (TENORETIC) 50-25 MG MOUTH EVERY DAY tabletIndications: Essential hypertension with goal blood pressure less than 140/90 cetirizine (ZYRTEC ALLERGY) Take 1 tablet (10 90 tablet 3 0 06/05/2020 06/24/2021 10 MG tabletIndications: mg) by mouth daily Seasonal allergic rhinitis, unspecified trigger citalopram (CELEXA) 20 MG Take 1 tablet (20 90 tablet 0 05/19/2021 tabletIndications: mg) by mouth daily Adjustment disorder with mixed anxiety and depressed mood dicyclomine (BENTYL) 20 MG Take 1 tablet (20 40 tablet 0 06/01/2021 tabletIndications: mg) by mouth 4 Diarrhea, unspecified type, times daily as Abdominal cramping needed (abdominal cramping) guaiFENesin-dextromethorpha Take 10 mLs by 254 mL 0 /08/202005/19/2021 n (ROBITUSSIN DM) 100-10 mouth 4 times MG/5ML syrupIndications: daily as needed Cough in adult, Acute for cough non-recurrent pansinusitis methylPREDNISolone (MEDROL Follow Package 21 tablet 0 12/1506/01/2021 DOSEPAK) 4 MG tablet Directions therapy packIndications: Cough in adult, Acute non-recurrent pansinusitis documented as of this encounter Plan of Treatment Not on filedocumented as of this encounter Procedures Procedure Name Priority Date/Time Associated Diagnosis Comme nts MA SCREENING Routine 05/02/2021 11:05 AM Breast cancer Results for this BILATERAL W/ RUSSELL CDT screening by procedure are in mammogram the results section. documented in this encounter Results MA Screen Bilateral w/Russell (05/02/2021 11:05 AM CDT) Anatomical Region Laterality Modality Breast Bilateral Mammography Specimen (Source) Anatomical Location Collection Method / Collectio n Time Received Time / Laterality Volume Narrative 05/02/2021 2:10 PM CDT BILATERAL FULL FIELD DIGITAL SCREENING MAMMOGRAM WITH TOMOSYNTHESIS Performed on: 05/02/21 Compared to: 11/15/2018, 01/27/2017, 04/2014, and 12/07/2011 Technique: ??This study was evaluated wi th the assistance of Computer-Aided Detection. ??Breast Tomosynthesis was us ed in interpretation. Findings: The breasts are heterogeneousl y dense, which may obscure small masses. ??There is no radiographic evide nce of malignancy. IMPRESSION: ACR BI-RADS Category 1: Nega tive RECOMMENDED FOLLOW-UP: Annual routine sc reening mammogram The results and recommendations of this examination will be communicated to the patient. Kleber Ledesma PA-C IMG MAMMOGRAPHY ORDERABLES documented in this encounter Visit Diagnoses Diagnosis Breast cancer screening by mammogram documented in this encounter Additional Health Concerns Assessment Noted Time PHQ-9 Depression Total Score: 2 05/31/2020 10:50 AM CD T documented as of this encounter Care Teams Metal Wire Technician Relationship Specialty Start Date End Date Kleber Ledesma, PCP - General Physician Fishing Hand - 05/15/14 [facility] Medical Kleber Ledesma, Assigned PCP 06/09/20 RACH[facility] [address] [place] [address] documented as of this encounter
--- OUTSIDE RECORDS SUMMARY | 2022-01-05 11:32 | XMS_ITS | Encounter Summary ---
:1960 Author Organization [facility] Address [address] [place] [address] Care Team Providers Name Role Phone Kleber Ledesma PA-C Primary Care Provider [phone] Junie Rm PA-C Unavailable Encounter Details Date Type Department Care Team Description 06/05/2020 Travel Social History Tobacco Use Types Packs/Day [...] documented as of this encounter Care Teams Hr Advisor Relationship Specialty Start Date End Date Kleber Ledesma, PCP - General Physician Carpet Binder - 05/15/14 [facility] Medical Junie Rm PA-C Assigned PCP 06/02/20 06/08/20 [address] [place] [address] documented as of this encounter
--- OUTSIDE RECORDS SUMMARY | 2022-01-05 11:32 | XMS_ITS | Encounter Summary ---
:1960 Author Organization [facility] Address [address] [place] [address] Care Team Providers Name Role Phone Kleber Ledesma PA-C Primary Care Provider [phone] Junie Rm PA-C Unavailable Reason for Visit Reason Comments Hospital F/U Encounter Details Date Type Department Care Team Description 06/05/2020 Office Visit [facility] Kleber Ledesma Cellul itis of left lower extremity (Primary Dx); [facility] [place] PA-[facility] Mild major depression (H); [id number] [address] [id number] [address] [place] Adjustment disorder with mixed anxiety a nd depressed mood; [address] [place], [place] Seasonal allergic rhinitis, unspecified trigger; [place] [address] Mixed hyperlipidemia [id number] Social History Tobacco Use Types Packs/Day Years [...] Sign Reading Time Taken Comments Blood Pressure 104/64 06/05/2020 2:32 PM CDT Pulse 97 06/05/2020 2:32 PM CDT Temperature 36.7 ??C (98 ??F) 06/05/2020 2:32 PM CDT Respiratory Rate 15 06/05/2020 2:32 PM CDT Oxygen Saturation 98% 06/05/2020 2:32 PM CDT Inhaled Oxygen Concentration - - Weight 66.5 kg (146 lb 9.6 oz) 06/05/2020 2:32 PM CDT Height 154.9 cm (5' 1) 06/05/2020 2:32 PM CDT Body Mass Index 27.7 06/05/2020 2:32 PM CDT documented in this encounter Progress Notes Kleber Ledesma PA-C - 06/05/2020 2:30 PM CDT Assessment & Plan Cellulitis of left lower extremity Hospitalized for 3 days- improving but still mild symptoms. She should continue to rest and elevatedthe extremity. Finish out patient abx. Lab recheck today. - CBC with platelets - CRP, inflammation - Basic metabolic panel (Ca, Cl, CO2, Creat, Gluc, K, Na, BUN) - Basic metabolic panel (Ca, Cl, CO2, Creat, Gluc, K, Na, BUN); Future Mild major depression (H) Stable. Adjustment disorder with mixed anxiety and depressed mood Refilled. - citalopram (CELEXA) 20 MG tablet; Take 1 tablet (20 mg) by mouth daily Seasonal allergic rhinitis, unspecified trigger She asked for Rx for this. Uses for allergy symptoms in spring and summer. - cetirizine (ZYRTEC ALLERGY) 10 MG tablet; Take 1 tablet (10 mg) by mouth daily Mixed hyperlipidemia She mentioned that she has not been taking her lipitor due to possible side effects. Will recheck labs and go from there. - Lipid panel reflex to direct LDL Fasting; Future BMI: Estimated body mass index is 27.7 kg/m?? as calculated from the following: Height as of this encounter: 1.549 m (5' 1). Weight as of this encounter: 66.5 kg (146 lb 9.6 oz). Weight management plan: Discussed healthy diet and exercise guidelines Return in about 6 months (around 12/05/2020) for blood pressure follow up, depression/anxiety med check. RACHNA Jang [facility] MELISSA Holloway is a 60 year old who presents for the following health issues: HPI Hospital Follow-up Visit: Hospital/Skilled Nursing/IP Rehab Facility: [facility] Date of Admission: 05/31/20 Date of Discharge: 06/02/20 Reason(s) for Admission: Cellulitis of left lower extremity from cat bite Was your hospitalization related to COVID-19? No Problems taking medications regularly: No problem taking them but they make her feel nauseated all the time and constant headaches Medication changes since discharge: Added flagyl and doxycycline to her medications Problems adhering to non-medication therapy: None Summary of hospitalization: [facility] [place] discharge summary reviewed Diagnostic Tests/Treatments reviewed. Follow up needed: labs Other Healthcare Providers Involved in Patient???s Care: None Update since discharge: fluctuating course. Post Discharge Medication Reconciliation: discharge medications reconciled, continue medications without change. Plan of care communicated with patient Also notes that she [facility], they took her off work and put her on crutches. Amox and Tramadol. When she got here for an OV she ended up going to the ED and getting admitted. Headaches- Located at frontal lobe, comes and goes. Sometimes OTC pain relievers help but it ends upcoming back. Nothing she notices make it worse. Wondering if it is from the two abx she is still taking. Could Two days ago when walking around doing short errands the ankle swelled significantly and she had pain. Rested yesterday and pain and swelling are better. Stopped lipitor- feet cold and tingling and now it is better without the medication. The 10-year ASCVD risk score (Charlotte DC Jr., et al., 2013) is: 2.6% Values used to calculate the score: Age: 60 years Sex: Female Is Non- : No Diabetic: No Tobacco smoker: No Systolic Blood Pressure: 104 mmHg Is BP treated: Yes HDL Cholesterol: 60 mg/dL Total Cholesterol: 162 mg/dL Review of Systems Constitutional, HEENT, cardiovascular, pulmonary, gi and gu systems are negative, except as otherwise noted. Objective BP 104/64 (BP Location: Right arm, Patient Position: Sitting, Cuff Size: Adult Regular) Pulse 97 Temp 98 ??F (36.7 ??C) (Oral) Resp 15 Ht 1.549 m (5' 1) Wt 66.5 kg (146 lb 9.6 oz) LMP 02/22/2010 (LMP Unknown) SpO2 98% BMI 27.70 kg/m?? Body mass index is 27.7 kg/m??. Physical Exam GENERAL: healthy, alert and no distress CV: regular rates and rhythm, normal S1 S2, no S3 or S4 and no murmur, click or rub MS: left lower extremity with two puncture wounds that are scabbed over. There is tenderness still present, no swelling today. Light erythema is noted below the puncture wounds. SKIN: no suspicious lesions or rashes PSYCH: mentation appears normal, affect normal/bright Results for orders placed or performed in visit on 06/05/20 CBC with platelets Status: None Result Value Ref Range WBC 6.5 4.0 - 11.0 10e9/L RBC Count 4.75 3.8 - 5.2 10e12/L Hemoglobin 13.0 11.7 - 15.7 g/dL Hematocrit 41.1 35.0 - 47.0 % MCV 87 78 - 100 fl MCH 27.4 26.5 - 33.0 pg MCHC 31.6 31.5 - 36.5 g/dL RDW 13.0 10.0 - 15.0 % Platelet Count 359 150 - 450 10e9/L CRP, inflammation Status: None Result Value Ref Range CRP Inflammation 4.5 0.0 - 8.0 mg/L Basic metabolic panel (Ca, Cl, CO2, Creat, Gluc, K, Na, BUN) Status: Abnormal Result Value Ref Range Sodium 137 133 - 144 mmol/L Potassium 4.2 3.4 - 5.3 mmol/L Chloride 103 94 - 109 mmol/L Carbon Dioxide 33 (H) 20 - 32 mmol/L Anion Gap 1 (L) 3 - 14 mmol/L Glucose 93 70 - 99 mg/dL Urea Nitrogen 21 7 - 30 mg/dL Creatinine 1.13 (H) 0.52 - 1.04 mg/dL GFR Estimate 52 (L) >60 mL/min/[1.73_m2] GFR Estimate If Black 61 >60 mL/min/[1.73_m2] Calcium 9.5 8.5 - 10.1 mg/dL documented in this encounter Plan of Treatment Not on filedocumented as of this encounter Procedures Procedure Name Priority Date/Time Associated Comments Diagnosis CRP INFLAMMATION Routine 06/05/2020 3:00 PM Cellulitis of left Results for this CDT lower extremity procedure ar e in the results section. BASIC METABOLIC PANEL Routine 06/05/2020 3:00 PM Cellulitis of left Results for this CDT lower extremity procedure ar e in the results section. CBC WITH PLATELETS Routine 06/05/2020 3:00 PM Cellulitis of le ft Results for this CDT lower extremity procedure ar e in the results section. documented in this encounter Results Basic metabolic panel (Ca, Cl, CO2, Creat, Gluc, K, Na, BUN) (06/28/2020 9:20 AM CDT) athologist Signature Sodium 140 133 - 144 06/28/2020 [facility] mmol/L 4:07 PM [facility] Potassium 4.0 3.4 - 5.3 06/28/2020 [facility] mmol/L 4:07 PM [facility] Chloride 108 94 - 109 06/28/2020 [facility] mmol/L 4:07 PM [facility] Carbon Dioxide 29 20 - 32 06/28/2020 [facility] mmol/L 4:15 PM [facility] Anion Gap 3 3 - 14 06/28/2020 [facility] mmol/L 4:15 PM [facility] Glucose 96 70 - 99 06/28/2020 [facility] mg/dL 4:15 PM [facility] Urea Nitrogen 18 7 - 30 06/28/2020 [facility] mg/dL 4:15 PM [facility] Creatinine 0.93 0.52 - 06/28/2020 [facility] 1.04 mg/dL 4:15 PM [facility] GFR Estimate 66 >60 06/28/2020 [facility] mL/min/{1. 4:15 PM [facility] 73_m2} [facility]OSPITAL Comment: Non GFR Calc Starting 01/25/2018, serum creatinine ba sed estimated GFR (eGFR) will be calculated using the Chronic Kidney Dise ase Epidemiology Collaboration (CKD-EPI) equation. GFR Estimate If 76 >60 mL/min/{1.73_m2} 06/28/2020 4: 15 PM [facility] Comment: GFR Calc Starting 01/25/2018, serum creatinine ba sed estimated GFR (eGFR) will be calculated using the Chronic Kidney Dise ase Epidemiology Collaboration (CKD-EPI) equation. Calcium 9.0 8.5 - 10.1 mg/dL 06/28/2020 4:15 PM CDT [facility] Specimen Anatomical Collection Method Collection Time Receive d Time (Source) Location / / Volume Laterality Blood 06/28/2020 9:20 AM 9:21 CDT AM CDT Kleber Ledesma PA-C LAB - BLOOD ORDERABLES Performing Organization Address City/State/ZIP Code Phon e Number [facility] [address] [place] [address] [facility] [address] [phone] (ABNORMAL) Lipid panel reflex to direct LDL Fasting (06/28/2020 9:20 AM CDT) athologist Signature Cholesterol 243 (H) <200 mg/dL 06/28/2020 [place] 4:15 PM [facility] Comment: Desirable: <200 mg/dl Triglycerides 107 <150 mg/dL 06/28/2020 4:20 PM [facility] HDL Cholesterol 57 >49 mg/dL 06/28/2020 4:[address] [facility] LDL Cholesterol 165 (H) <100 mg/dL 06/28/2020 4:20 PM [facility] Comment: Above desirable: ??100-129 mg/dl Borderline High: ??130-159 mg/dL High: ? 160-189 mg/dL Very high: ? >189 mg/dl Non HDL Cholesterol 186 (H) <130 mg/dL 06/28/2020 4:16 PM T [facility] Comment: Above Desirable: ??130-159 mg/dl Borderline high: ??160-189 mg/dl High: ? 190-219 mg/dl Very high: ? >219 mg/dl Specimen Anatomical Collection Method Collection Time Receive d Time (Source) Location / / Volume Laterality Blood 06/28/2020 9:20 AM 9:21 CDT AM CDT Kleber Ledesma PA-C LAB - BLOOD ORDERABLES Performing Organization Address City/State/ZIP Code Phon e Number [facility] [place] [address] [place] [address] [facility] [address] [phone] (ABNORMAL) Basic metabolic panel (Ca, Cl, CO2, Creat, Gluc, K, Na, BUN) (06/05/2020 3:00 PM CDT) Analysis Performed At Patho logist Time Signature Sodium 137 133 - 144 06/06/2020 [place] mmol/L 3:20 AM [facility] Potassium 4.2 3.4 - 5.3 06/06/2020 [place] mmol/L 3:20 AM [facility] Chloride 103 94 - 109 06/06/2020 [place] mmol/L 3:20 AM [facility] Carbon Dioxide 33 (H) 20 - 32 06/06/2020 [place] mmol/L 3:28 AM [facility] Anion Gap 1 (L) 3 - 14 06/06/2020 [place] mmol/L 3:28 AM [facility] Glucose 93 70 - 99 06/06/2020 [place] mg/dL 3:28 AM [facility] Urea Nitrogen 21 7 - 30 06/06/2020 [place] mg/dL 3:28 AM [facility] Creatinine 1.13 (H) 0.52 - 06/06/2020 [facility] 1.04 mg/dL 3:28 AM [facility] GFR Estimate 52 (L) >60 06/06/2020 [place] mL/min/{1. 3:28 AM [facility] 73_m2} [facility]OSPITAL Comment: Non GFR Calc Starting 01/25/2018, serum creatinine ba sed estimated GFR (eGFR) will be calculated using the Chronic Kidney Dise ase Epidemiology Collaboration (CKD-EPI) equation. GFR Estimate If 61 >60 mL/min/{1.73_m2} 06/06/2020 3: 28 AM [facility] Comment: GFR Calc Starting 01/25/2018, serum creatinine ba sed estimated GFR (eGFR) will be calculated using the Chronic Kidney Dise [facility] Epidemiology Collaboration (CKD-EPI) equation. Calcium 9.5 8.5 - 10.1 mg/dL 06/06/2020 3:28 AM CDT [facility] Specimen Anatomical Collection Method Collection Time Receive d Time (Source) Location / / Volume Laterality Blood 06/05/2020 3:00 PM 1 3:06 CDT PM CDT Kleber Ledesma PA-C LAB - BLOOD ORDERABLES Performing Organization Address City/State/ZIP Code Phon e Number [facility] [address] [place] [address] [facility] [address] [phone] CRP, inflammation (06/05/2020 3:00 PM CDT) Analysis Performed At Patho logist Time Signature CRP Inflammation 4.5 0.0 - 8.0 06/05/2020 [place] O F mg/L 8:59 PM CDT [facility] Specimen Anatomical Collection Method Collection Time Receive d Time (Source) Location / / Volume Laterality Blood 06/05/2020 3:00 PM 1 3:06 CDT PM CDT Kleber Ledesma PA-C LAB - BLOOD ORDERABLES Performing Organization Address City/State/ZIP Code Phon e Number [facility] [address] [place] [address] [facility] CBC with platelets (06/05/2020 3:00 PM CDT) P athologist Signature WBC 6.5 4.0 - 11.0 06/05/2020 [place] 10e9/L 3:15 PM CDT [facility] RBC Count 4.75 3.8 - 5.2 06/05/2020 [place] 10e12/L 3:15 PM CDT [facility] Hemoglobin 13.0 11.7 - 15.7 06/05/2020 [facility] [place] g/dL 3:15 PM CDT [facility] Hematocrit 41.1 35.0 - 47.0 06/05/2020 [place] % 3:15 PM CDT [facility] MCV 87 78 - 100 fl 06/05/2020 [place] 3:15 PM CDT [facility] MCH 27.4 26.5 - 33.0 06/05/2020 [place] pg 3:15 PM CDT [facility] MCHC 31.6 31.5 - 36.5 06/05/2020 [place] g/dL 3:15 PM CDT [facility] Comment: Results confirmed by repeat sakshi t RDW 13.0 10.0 - 15.0 % 06/05/2020 3:15 PM CDT [facility] Platelet Count 359 150 - 450 10e9/L 06/05/2020 3:15 PM CDT [facility] Specimen Anatomical Collection Method Collection Time Receive d Time (Source) Location / / Volume Laterality Blood 06/05/2020 3:00 PM 3:06 CDT PM CDT Kleber Ledesma PA-C LAB - BLOOD ORDERABLES Performing Organization Address City/State/ZIP Code Phon e Number [facility] [address] [place], [place] [address] documented in this encounter Visit Diagnoses Diagnosis Cellulitis of left lower extremity - Ivy kyara Cellulitis and abscess of leg, except fo ot Mild major depression (H) Major depressive disorder, single episod e, mild Adjustment disorder with mixed anxiety a nd depressed mood Seasonal allergic rhinitis, unspecified trigger Mixed hyperlipidemia documented in this encounter Additional Health Concerns Assessment Noted Time PHQ-9 Depression Total Score: 2 05/31/2020 10:50 AM CD T documented as of this encounter Care Teams Senior Mechanical Project Manager Relationship Specialty Start Date End Date Kleber Ledesma, PCP - General Physician Spinneret Person - 05/15/14 [facility] Junie Rm PA-C Assigned PCP 06/02/20 06/08/20 [id number] [place] [address] documented as of this encounter
--- OUTSIDE RECORDS SUMMARY | 2022-01-05 11:32 | XMS_ITS | Encounter Summary ---
:1960 Author Organization [place] Address [facility] [place] [address] Care Team Providers Name Role Phone Kleber Ledesma PA-C Primary Care Provider [phone] Kelber Ledesma PA-C Unavailable [phone] Reason for Visit Reason Comments URI x1 week Encounter Details Date Type Department Care Team Description 12/15/2020 Office Visit [facility] Noel Ervin, Acute non-recurrent pansinusitis (Primary Dx); Urgent Care Kavitha pierre PA-C Cough in adult [id number] [place] [address] Social History Tobacco Use Types Packs/Day Years [...] month, have you been in contact with Yes 12/15/2020 12:04 PM ROSIN BARREL FILLER someone who was confirmed or suspected to have Coronavirus / COVID-19? documented as of this encounter Last Filed Vital Signs Vital Sign Reading Time Taken Comments Blood Pressure 120/70 12/15/2020 1:00 PM ROSIN BARREL FILLER Pulse 61 12/15/2020 1:00 PM ROSIN BARREL FILLER Temperature 36.8 ??C (98.3 ??F) 12/15/2020 1:00 PM ROSIN BARREL FILLER Respiratory Rate 16 12/15/2020 1:00 PM ROSIN BARREL FILLER Oxygen Saturation 98% 12/15/2020 1:00 PM ROSIN BARREL FILLER Inhaled Oxygen Concentration - - Weight 66.2 kg (145 lb 14.4 oz) 12/15/2020 1:00 PM ROSIN BARREL FILLER Height - - Body Mass Index 27.57 06/05/2020 2:32 PM CDT documented in this encounter Patient Instructions Patient InstructionsNoel Ervin PA-C - 12/15/2020 11:30 AM CST Images from the original note were not included. Patient Education Understanding Acute Rhinosinusitis Acute rhinosinusitis is??when the lining of the inside of the nose and the sinuses becomes irritatedand swollen. It is also called sinusitis, or a sinus infection. Sinuses are air-filled spaces in the skull behind the face. They are kept moist and clean by a lining of mucosa. Things such as pollen, smoke, and chemical fumes can irritate the mucosa. It can then swell up. As a response to irritation, the mucosa makes more mucus and other fluids. Tiny hairlike cilia cover the mucosa. Cilia help carry mucus toward the opening of the sinus. Too much mucus may cause the cilia to stop working. This blocks the sinus opening. A buildup of fluid in the sinuses then causes pain and pressure. It can also cause bacteria to grow in the sinuses. What causes acute rhinosinusitis? A sinus infection is most often caused by a virus. You are more likely to get one after having a cold or the flu. In some cases, a sinus infection can be caused by bacteria. You are at higher risk for a sinus infection if you: ?? Are older in age ?? Have structural problems with your sinuses ?? Smoke or are exposed to secondhand smoke ?? Are exposed to changes in pressure, such as from flying a lot or deep sea diving ?? Have asthma or allergies ?? Have a weak immune system ?? Have dental disease ?? Symptoms of acute rhinosinusitis Symptoms of acute rhinosinusitis often last around 7 to 10 days. If you have a bacterial infection, they may last longer. They may also get better but then worsen. You may have: ?? Face??pain or pressure under the eyes and around the nose ?? Headache ?? Fluid draining in the back of the throat (postnasal drip) ?? Congestion ?? Drainage that is thick and colored (often green), instead of clear ?? Cough ?? Problems with your sense of smell ?? Ear pain or hearing problems ?? Fever ?? Tooth pain ?? Fatigue Diagnosing acute rhinosinusitis Your??healthcare provider will ask about your symptoms and past health.??He or she will look at yourears, nose, throat, and sinuses. Imaging tests, such as X- rays, are often not needed. It can be hard to figure out if a sinus infection is caused by a virus or bacterium. A bacterial infection tends to last longer. Symptoms may also get better but then worsen. Your healthcare provider may take a??sample of mucus from your nose to check for bacteria. Treating acute rhinosinusitis Most sinus infections will go away within 10 days. Your body will fight off the virus. If your symptoms seem to get better but then worsen, you may have a bacterial infection instead. Your healthcare provider will then give you antibiotics. Take this medicine until it is gone, even if you feel better. To help ease your symptoms, your healthcare provider may advise: ?? Emji-fmi-kddpvzu pain relievers. Medicines such as acetaminophen or ibuprofen can ease sinus pain. They may also lower a fever. ?? Nasal washes. Washing your nasal passages with salt water may ease pain and pressure. It can rinse out mucous and other irritants from your sinuses. Your healthcare provider can show you how to do it. ?? Nasal steroid spray. This prescription medicine can reduce inflammation in your sinuses. ?? Other medicines. Decongestants, antihistamines, and other nasal sprays may give short-term relief. They may help with congestion. Talk with your healthcare provider before taking these medicines. ?? Preventing acute rhinosinusitis You can help prevent a sinus infection with these steps: ?? Wash your hands well and often. ?? Stay away from people who have a cold or upper respiratory infection. ?? Don't smoke. And stay away from secondhand smoke. ?? Use a humidifier at home. ?? Make sure you are up-to-date on your vaccines, such as the flu shot. ?? When to call your healthcare provider Call your healthcare provider right away if you have any of these: ?? Fever of 100.4??F (38??C) or higher, or as directed by your healthcare provider ?? Pain that gets worse ?? Symptoms that don???t get better, or get worse ?? New symptoms Yovanny last reviewed this educational content on 07/09/2018 ?? 5119-0857 [employer], [employer]. All rights reserved. This information is not intended as a substitute for professional medical care. Always follow your healthcare professional's instructions. N BARREL FILLER documented in this encounter Progress Notes Noel Ervin PA-C - 12/15/2020 11:30 AM CST Images from the original note were not included. Cough in adult - Symptomatic COVID-19 Virus (Coronavirus) by PCR Nose - methylPREDNISolone (MEDROL DOSEPAK) 4 MG tablet therapy pack; Follow Package Directions - guaiFENesin-dextromethorphan (ROBITUSSIN DM) 100-10 MG/5ML syrup; Take 10 mLs by mouth 4 times daily as needed for cough Acute non-recurrent pansinusitis - methylPREDNISolone (MEDROL DOSEPAK) 4 MG tablet therapy pack; Follow Package Directions - guaiFENesin-dextromethorphan (ROBITUSSIN DM) 100-10 MG/5ML syrup; Take 10 mLs by mouth 4 times daily as needed for cough - amoxicillin-clavulanate (AUGMENTIN) 875-125 MG tablet; Take 1 tablet by mouth 2 times daily for 10days 20 minutes spent on the date of the encounter doing chart review, history and exam, documentation and further activities per the note See Patient Instructions Patient Instructions Patient Education Understanding Acute Rhinosinusitis Acute rhinosinusitis is??when the lining of the inside of the nose and the sinuses becomes irritatedand swollen. It is also called sinusitis, or a sinus infection. Sinuses are air-filled spaces in the skull behind the face. They are kept moist and clean by a lining of mucosa. Things such as pollen, smoke, and chemical fumes can irritate the mucosa. It can then swell up. As a response to irritation, the mucosa makes more mucus and other fluids. Tiny hairlike cilia cover the mucosa. Cilia help carry mucus toward the opening of the sinus. Too much mucus may cause the cilia to stop working. This blocks the sinus opening. A buildup of fluid in the sinuses then causes pain and pressure. It can also cause bacteria to grow in the sinuses. What causes acute rhinosinusitis? A sinus infection is most often caused by a virus. You are more likely to get one after having a cold or the flu. In some cases, a sinus infection can be caused by bacteria. You are at higher risk for a sinus infection if you: ?? Are older in age ?? Have structural problems with your sinuses ?? Smoke or are exposed to secondhand smoke ?? Are exposed to changes in pressure, such as from flying a lot or deep sea diving ?? Have asthma or allergies ?? Have a weak immune system ?? Have dental disease ?? Symptoms of acute rhinosinusitis Symptoms of acute rhinosinusitis often last around 7 to 10 days. If you have a bacterial infection, they may last longer. They may also get better but then worsen. You may have: ?? Face??pain or pressure under the eyes and around the nose ?? Headache ?? Fluid draining in the back of the throat (postnasal drip) ?? Congestion ?? Drainage that is thick and colored (often green), instead of clear ?? Cough ?? Problems with your sense of smell ?? Ear pain or hearing problems ?? Fever ?? Tooth pain ?? Fatigue Diagnosing acute rhinosinusitis Your??healthcare provider will ask about your symptoms and past health.??He or she will look at yourears, nose, throat, and sinuses. Imaging tests, such as X- rays, are often not needed. It can be hard to figure out if a sinus infection is caused by a virus or bacterium. A bacterial infection tends to last longer. Symptoms may also get better but then worsen. Your healthcare provider may take a??sample of mucus from your nose to check for bacteria. Treating acute rhinosinusitis Most sinus infections will go away within 10 days. Your body will fight off the virus. If your symptoms seem to get better but then worsen, you may have a bacterial infection instead. Your healthcare provider will then give you antibiotics. Take this medicine until it is gone, even if you feel better. To help ease your symptoms, your healthcare provider may advise: ?? Kzed-zqs-dnvehsj pain relievers. Medicines such as acetaminophen or ibuprofen can ease sinus pain. They may also lower a fever. ?? Nasal washes. Washing your nasal passages with salt water may ease pain and pressure. It can rinse out mucous and other irritants from your sinuses. Your healthcare provider can show you how to do it. ?? Nasal steroid spray. This prescription medicine can reduce inflammation in your sinuses. ?? Other medicines. Decongestants, antihistamines, and other nasal sprays may give short-term relief. They may help with congestion. Talk with your healthcare provider before taking these medicines. ?? Preventing acute rhinosinusitis You can help prevent a sinus infection with these steps: ?? Wash your hands well and often. ?? Stay away from people who have a cold or upper respiratory infection. ?? Don't smoke. And stay away from secondhand smoke. ?? Use a humidifier at home. ?? Make sure you are up-to-date on your vaccines, such as the flu shot. ?? When to call your healthcare provider Call your healthcare provider right away if you have any of these: ?? Fever of 100.4??F (38??C) or higher, or as directed by your healthcare provider ?? Pain that gets worse ?? Symptoms that don???t get better, or get worse ?? New symptoms [employer] last reviewed this educational content on 07/09/2018 ?? [id number] [employer]. All rights reserved. This information is not intended as a substitute for professional medical care. Always follow your healthcare professional's instructions. Noel Ervin PA-C [facility] Subjective 60 year old who presents to clinic today for the following health issues: URI HPI Acute Illness Acute illness concerns: Headache Lighheaded [place] Fatigue Slight Cough and weird taste in mouth Onset/Duration: Wednesday afternoon Symptoms: Fever: no Chills/Sweats: YES Headache (location?): YES Sinus Pressure: YES Conjunctivitis: no Ear Pain: YES Rhinorrhea: no Congestion: YES Sore Throat: YES Cough: YES Wheeze: no Decreased Appetite: no Nausea: YES Vomiting: no Diarrhea: Loose stool- No abdominal pain Dysuria/Freq.: no Dysuria or Hematuria: no Fatigue/Achiness: YES Sick/Strep Exposure: Formula Bottler had Covid Therapies tried and outcome: Tylenol and advil Review of Systems Review of Systems See HPI Objective Temp: 98.3 ??F (36.8 ??C) Temp src: Oral BP: 120/70 Pulse: 61 Resp: 16 SpO2: 98 % Physical Exam Physical Exam Constitutional: General: She is not in acute distress. Appearance: Normal appearance. She is normal weight. She is not ill-appearing, toxic-appearing or diaphoretic. HENT: Head: Normocephalic and atraumatic. Right Ear: Tympanic membrane, ear canal and external ear normal. There is no impacted cerumen. Left Ear: Tympanic membrane, ear canal and external ear normal. There is no impacted cerumen. Nose: Congestion and rhinorrhea present. Right Sinus: Maxillary sinus tenderness and frontal sinus tenderness present. Left Sinus: Maxillary sinus tenderness and frontal sinus tenderness present. Mouth/Throat: Mouth: Mucous membranes are moist. Pharynx: Oropharynx is clear. No oropharyngeal exudate or posterior oropharyngeal erythema. Cardiovascular: Rate and Rhythm: Normal rate and regular rhythm. Pulses: Normal pulses. Heart sounds: Normal heart sounds. No murmur heard. No friction rub. No gallop. Pulmonary: Effort: Pulmonary effort is normal. No respiratory distress. Breath sounds: Normal breath sounds. No stridor. No wheezing, rhonchi or rales. Chest: Chest wall: No tenderness. Musculoskeletal: Cervical back: Normal range of motion and neck supple. No tenderness. Lymphadenopathy: Cervical: No cervical adenopathy. Neurological: General: No focal deficit present. Mental Status: She is alert and oriented to person, place, and time. Mental status is at baseline. Gait: Gait normal. Psychiatric: Mood and Affect: Mood normal. Behavior: Behavior normal. Thought Content: Thought content normal. Judgment: Judgment normal. No results found for this or any previous visit (from the past 24 hour(s)). N BARREL FILLER documented in this encounter Plan of Treatment Not on filedocumented as of this encounter Procedures Procedure Name Priority Date/Time Associated Diagnosis Comme nts COVID-19 VIRUS STAT 12/15/2020 1:04 PM Cough in adult Resul ts for this (CORONAVIRUS) BY ROSIN BARREL FILLER procedure a re in PCR the results section. documented in this encounter Results Symptomatic COVID-19 Virus (Coronavirus) by PCR Nose (12/15/2020 1:04 PM ROSIN BARREL FILLER) Analysis Performed At Patho logist Time Signature SARS CoV2 PCR Negative Negative 12/16/2020 [facility] 2:55 PM ROSIN BARREL FILLER [facility] Comment: NEGATIVE: SARS-CoV-2 (COVID-19) RNA not detected, presumed negative. Specimen Anatomical Collection Method Collection Time Receive d Time (Source) Location / / Volume Laterality Swab NASAL STRUCTURE / Non-blood 12/15/2020 1:04 PM 08/2020 1:15 Unknown Collection / ROSIN BARREL FILLER PM ROSIN BARREL FILLER Unknown Narrative [facility] - 12/16/2020 2:[address] Testing was performed using the Xpert Xpress SARS-CoV-2 Assay on the [employer]. A dditional information about this [...] COVID-19. This test was validated by the [facility]. This lab oratory is certified under the Clinical Laboratory Improvement Amen dments of 1987 (CLIA-88) as qualified to perform high complexity lab oratory testing. Noel Ervin PA-C LAB - MICRO GENERAL ORDERABL ES Performing Organization Address City/State/ZIP Code Phon e Number [facility] [id number] Diag. Lab [address] [facility] [facility] Infectious [place], [place] [phone] Diseases Diagnostic [id number] Lab ([facility]) [address] [facility], [address] documented in this encounter Visit Diagnoses Diagnosis Acute non-recurrent pansinusitis - Prima ry Cough in adult documented in this encounter Additional Health Concerns Assessment Noted Time PHQ-9 Depression Total Score: 2 05/31/2020 10:50 AM CD T documented as of this encounter Care Teams Nuclear Power Plant Engineer Relationship Specialty Start Date End Date Kleber Ledesma, PCP - General Physician Radiotelegraph Operator - 05/15/14 [facility]AD[facility] Medical Kleber Ledesma, Assigned PCP 06/09/20 PADeanneC [address] [place] [address] documented as of this encounter
--- OUTSIDE RECORDS SUMMARY | 2022-01-05 11:32 | XMS_ITS | Encounter Summary ---
:1960 Author Organization [place] Address [address] [place] [address]. [place] [address] Care Team Providers Name Role Phone Kleber Ledesma PA-C Primary Care Provider [phone] Kleber Ledesma PA-C Unavailable [phone] Reason for Visit Reason Onset Date Comments Refill Request 03/25/2021 citalopram (CELEXA) 20 MG tablet Encounter Details Date Type Department Care Team Description 03/25/2021 Refill [facility] Kleber Ledesma Refill Request Clinic Donna Valderrama PA-C (citalopram (CELEXA) [id number] MG tablet) [place], [place] [id number] [phone] Social History Tobacco Use Types Packs/Day Years Used Date Smoking Tobacco: Former Smokeless Tobacco: Never Comments: quit smoking at 21 yrs old. sm oked 2 to 31/03 ppd Alcohol Use Standard Drinks/Week Comments Yes 2 (1 standard drink = 0.6 oz pure alcoho l) socially Sex Assigned at Date Recorded Not on file documented as of this encounter Miscellaneous Notes Telephone Encounter - China Tamayo - 03/26/2021 11:56 AM CST PT scheduled w/ PCP on 04/28/21. -China Tamayo Customer Solutions Specialist OR JAVASCRIPT DEVELOPER Telephone Encounter - Deisy Elizabeth RN - 03/26/2021 11:28 AM CST Medication is being filled for 1 time refill only due to: Patient needs to be seen because patient is due for med check and update PHQ-9 and MORENA-7. Last OV was 06/05/2020. Please contact patient and schedule appointment for further refills. Deisy Elizabeth RN OR JAVASCRIPT DEVELOPER documented in this encounter Plan of Treatment Not on filedocumented as of this encounter Visit Diagnoses Diagnosis Adjustment disorder with mixed anxiety a nd depressed mood documented in this encounter Additional Health Concerns Assessment Noted Time PHQ-9 Depression Total Score: 2 05/31/2020 10:50 AM CD T documented as of this encounter Care Teams Multifocal Button Generator Relationship Specialty Start Date End Date Kleber Ledesma, PCP - General Physician Collections Manager - 05/15/14 [facility] Medical Kleber Ledesma, Assigned PCP 06/09/20 RACHNA [id number] [place] [address] documented as of this encounter
--- OUTSIDE RECORDS SUMMARY | 2022-01-05 11:32 | XMS_ITS | Encounter Summary ---
:1960 Author Organization [place] Address [address] [place] [address] Care Team Providers Name Role Phone Kleber Ledesma PA-C Primary Care Provider [phone] Kleber Ledesma PA-C Unavailable [phone] Encounter Details Date Type Department Care Team Description 12/15/2020 Travel Social History Tobacco Use Types Packs/Day [...] in contact with Yes 12/15/2020 12:04 PM SALES AND SUPPORT CENTER AGENT someone who was confirmed or suspected to have Coronavirus / COVID-19? documented as of this encounter Plan of Treatment Not on filedocumented as of this encounter Visit Diagnoses Not on filedocumented in this encounter Additional Health Concerns Infection Onset Date Last Indicated Resolved Time Rule Out COVID-19 12/15/2020 12/15/2020 12/16/2020 2:5 5 PM SALES AND SUPPORT CENTER AGENT Assessment Noted Time PHQ-9 Depression Total Score: 2 05/31/2020 10:50 AM CD T documented as of this encounter Care Teams Rehab Aide Relationship Specialty Start Date End Date Kleber Ledesma, PCP - General Physician Harness Tier - 05/15/14 [facility] Medical Kleber Ledesma, Assigned PCP 06/09/20 RACH[facility] [address] [place] [address] documented as of this encounter
--- OUTSIDE RECORDS SUMMARY | 2022-01-05 11:32 | XMS_ITS | Encounter Summary ---
:1960 Author Organization [facility] Address [address] [place] [address] Care Team Providers Name Role Phone Kleber Ledesma PA-C Primary Care Provider [phone] Kleber Ledesma PA-C Unavailable [phone] Reason for Referral Diagnostic Imaging CT Scan (Routine) - Closed Specialty Diagnoses / Procedures Referred By Contact Refer red To Contact Diagnoses Abdominal pain, right lower quadrant Nausea and vomiting, intractability of vomiting not specified, unspecified vomiting type [place] [facility], Procedures CT Abdomen Pelvis w Contrast CERAMIC TILE INSTALLATION HELPER AUTOMATIC VULCANIZING OPERATOR [address] [place] [address] Referral ID Status Reason Start Date Expiration Date Visits Requ ested Visits Authorized [id number] Closed 03/26/2021 03/26/2022 1 1 ORN HEARING SCREENER Reason for Visit Diagnostic Imaging CT Scan (Routine) - Closed Specialty Diagnoses / Procedures Referred By Contact Refer red To Contact Diagnoses Abdominal pain, right lower quadrant Nausea and vomiting, intractability of vomiting not specified, unspecified vomiting type China Rdz, Procedures CT Abdomen Pelvis w Contrast ETHAN AUTOMATIC VULCANIZING OPERATOR [address] [place] [address] Referral ID Status Reason Start Date Expiration Date Visits Requ ested Visits Authorized [id number] Closed 03/26/2021 03/26/2022 1 1 Encounter Details Date Type Department Care Team Description 03/26/2021 Hospital Encounter [facility] China Rdz bdominal pain, right lower quadrant; [facility] Kathy, CERAMIC TILE INSTALLATION HELPER AUTOMATIC VULCANIZING OPERATOR Nausea and vomiting, intractability of v omiting not specified, unspecified vomiting type [address] [facility] [place] [address] [place], [place] [phone] [address] Social History Tobacco Use Types Packs/Day Years [...] with No / Unsure 03/26/2021 12:39 PM NEWBORN HEARING SCREENER someone who was confirmed or suspected to have Coronavirus / COVID-19? documented as of this encounter Medications at Time of Discharge Medication Sig Dispensed Refills Start Date End Date amoxicillin-clavulanate Take 1 tablet by 20 tablet 0 202104/05/2021 (AUGMENTIN) 875-125 MG mouth 2 times tabletIndications: Cough daily for 20 doses atenolol-chlorthalidone TAKE ONE TABLET BY 90 tablet [...] Take 10 mLs by 254 mL 0 08/202005/19/2021 n (ROBITUSSIN DM) 100-10 mouth 4 times [...] Name Priority Date/Time Associated Diagnosis Comme nts CT ABDOMEN PELVIS STAT 03/26/2021 3:56 PM Abdominal pain, r ight Results for this W CONTRAST NEWBORN HEARING SCREENER lower quadrant procedure are in Nausea and vomiting, the res ults intractability of section. vomiting not specified, unspecified vomiting type documented in this encounter Results CT Abdomen Pelvis w Contrast (03/26/2021 3:56 PM NEWBORN HEARING SCREENER) Anatomical Region Laterality Modality Abdomen/Pelvis, SUBRAD CT BODY, UMP CT ABDOMEN PELVIS, Computed Tomography RAD CT Specimen (Source) Anatomical Location Collection Method / Collectio n Time Received Time / Laterality Volume Impressions 03/26/2021 4:25 PM NEWBORN HEARING SCREENER IMPRESSION: 1. No acute pathology in the abdomen and pelvis. 2. Extensive colonic diverticulosis with out CT evidence of acute diverticulitis. SHOSHANA LOVE MD Narrative 03/26/2021 4:25 PM NEWBORN HEARING SCREENER CT ABDOMEN/PELVIS WITH CONTRAST March 26, 2021 [...] acute diverticulitis. SHOSHANA LOVE MD [place] [facility]dz CERAMIC TILE INSTALLATION HELPER AUTOMATIC VULCANIZING OPERATOR IMG CT ORDERABLES documented in this encounter Visit Diagnoses Diagnosis Abdominal pain, right lower quadrant Nausea and vomiting, intractability of v omiting not specified, unspecified vomiting type documented in this encounter Administered Medications Inactive Administered Medications - up to 3 most recent administrations Medication Order MAR Action Action Date Dose Rate Site CT Scan Flush Given 03/26/2021 3:46 PM NEWBORN HEARING SCREENER 57 mLs Intravenous, 100 mL, ONCE, On Wed03/26/21 at 1600, For 1 dose, This entry is for use by Radiology to intermittently used as a flush in patients receiving a CT scan. iopamidol (ISOVUE-370) solution 500 mL Given 03/26/2021 3:46 PM NEWBORN HEARING SCREENER 70 mLs 500 mL, Intravenous, ONCE, On Wed03/26/21 at 1600, For 1 dose documented in this encounter Additional Health Concerns Assessment Noted Time PHQ-9 Depression Total Score: 2 05/31/2020 10:50 AM CD T documented as of this encounter Care Teams Transfer Machine Operator Relationship Specialty Start Date End Date Kleber Ledesma, PCP - General Physician Flame Degreaser - 05/15/14 [facility] Kleber Ledesma, Assigned PCP 06/09/20 [facility] [address] [place] [address] documented as of this encounter
--- OUTSIDE RECORDS SUMMARY | 2022-01-05 11:32 | XMS_ITS | Encounter Summary ---
:1960 Author Organization [facility] Address [address] [place] [address] Care Team Providers Name Role Phone Kleber Ledesma PA-C Primary Care Provider [phone] Kleber Ledesma PA-C Unavailable [phone] Encounter Details Date Type Department Care Team Description 07/16/2021 Travel Social History Tobacco Use Types Packs/Day [...] in contact with No / Unsu re 07/16/2021 3:57 PM CDT someone who was confirmed or suspected to have Coronavirus/COVID-19? documented as of this encounter Plan of Treatment Not on filedocumented as of this encounter Visit Diagnoses Not on filedocumented in this encounter Additional Health Concerns Assessment Noted Time PHQ-9 Depression Total Score: 3 05/19/2021 2:43 PM CDT documented as of this encounter Care Teams Magnetic Tape Typewriter Operator Relationship Specialty Start Date End Date Kleber Ledesma, PCP - General Physician Manager Paper - 05/15/14 [facility] Kleber Ledesma, Assigned PCP 06/09/20 [facility] [address] [place] [address] documented as of this encounter
--- OUTSIDE RECORDS SUMMARY | 2022-01-05 11:32 | XMS_ITS | Encounter Summary ---
:1960 Author Organization [facility] Address [address] [place] [address] Care Team Providers Name Role Phone Kleber Ledesma PA-C Primary Care Provider [phone] Kleber Ledesma PA-C Unavailable [phone] Encounter Details Date Type Department Care Team Description 06/28/2020 Travel Social History Tobacco Use Types Packs/Day [...] documented as of this encounter Care Teams Offshore Wind Operations Manager Relationship Specialty Start Date End Date Kleber Ledesma, PCP - General Physician Forest Fire Officer - 05/15/14 [facility] Kleber Ledesma, Assigned PCP 06/09/20 [facility] [address] [place] [address] documented as of this encounter
--- OUTSIDE RECORDS SUMMARY | 2022-01-05 11:32 | XMS_ITS | Encounter Summary ---
:1960 Author Organization [facility] Address [address] [place] [address]. [place] [address] Care Team Providers Name Role Phone Kleber Ledesma PA-C Primary Care Provider [phone] Junie Rm PA-C Unavailable Patricia Brown RN Unavailable Reason for Visit Reason Onset Date Comments Hospital F/U 06/03/2020 Cellulitis of Left L ower Extremity Encounter Details Date Type Department Care Team Description 06/03/2020 Telephone [facility] Kleber Ledesma [facility] F/U Clinic Donna Valderrama PA-C (Cellulitis of Left [address] Lower Extremity) [facility] MD 55 [phone] [id number] [phone] Social History Tobacco Use Types Packs/Day Years [...] encounter Miscellaneous Notes Telephone Encounter - Deisy Elizabeth, DEWAYNE - 06/06/2020 9:51 AM CDT Patient was seen in the clinic for a hospital follow up by Kleber Ledesma yesterday 06/05/2020. Deisy Elizabeth RN Telephone Encounter - Emma Valdovinos RN - 06/03/2020 8:28 AM CDT ED / Discharge Outreach Protocol Patient Contact Attempt # 1 Was call answered? No. Left message on Original[employer] with information to call me back. Emma Valdovinos RN on 06/03/2020 at 8:29 AM Telephone Encounter - Amanda Torres - 06/03/2020 8:02 AM CDT Please contact patient for In-patient follow up. [phone] (home) Visit date: 05/31-06/02 Diagnosis listed:Cellulitis of Left Lower Extremity Number of visits in past 12 months:1 ED/ 1 IP documented in this encounter Plan of Treatment Not on filedocumented as of this encounter Visit Diagnoses Not on filedocumented in this encounter Additional Health Concerns Assessment Noted Time PHQ-9 Depression Total Score: 2 05/31/2020 10:50 AM CD T documented as of this encounter Care Teams Liquor Establishment Manager Relationship Specialty Start Date End Date Kleber Ledesma PCP - General Physician Insert Molding Operator - 05/15/14 [facility] Medical Junie Rm, Assigned PCP 06/02/20 06/08/20 [facility] [address] [place] [address] Patricia Brown RN Clinic Display [place] 06/03/20 06/03/20 documented as of this encounter
--- OUTSIDE RECORDS SUMMARY | 2022-01-05 11:33 | XMS_ITS | Encounter Summary ---
:1960 Author Organization [facility] Address [address] [place] [address] Care Team Providers Name Role Phone Kleber Ledesma PA-C Primary Care Provider [phone] lKeber Ledesma PA-C Unavailable [phone] Encounter Details Date Type Department Care Team Description 05/29/2020 Travel Social History Tobacco Use Types Packs/Day [...] been in contact with No / Unsure 05/29/2020 8:08 PM CDT someone who was confirmed or suspected to have Coronavirus / COVID-19? documented as of this encounter Plan of Treatment Not on filedocumented as of this encounter Visit Diagnoses Not on filedocumented in this encounter Additional Health Concerns Assessment Noted Time PHQ-9 Depression Total Score: 3 10/18/2019 4:20 PM CDT documented as of this encounter Care Teams Denture Technician Relationship Specialty Start Date End Date Kleber Ledesma, PCP - General Physician Licensed Marriage And Family Therapist - 05/15/14 [facility] Kleber Ledesma, Assigned PCP 09/19/17 [facility] [address] [place] [address] documented as of this encounter
--- OUTSIDE RECORDS SUMMARY | 2022-01-05 11:33 | XMS_ITS | Encounter Summary ---
:1960 Author Organization [facility] Address [address] [place] [address] Care Team Providers Name Role Phone Kleber Ledesma PA-C Primary Care Provider [phone] Kleber Ledesma PA-C Unavailable [phone] Sasha Tai RN Unavailable Unavailable Encounter Details Date Type Department Care Team Description 01/08/2020 Travel Social History Tobacco Use Types Packs/Day [...] been in contact with No / Unsure 01/08/2020 11:18 AM PINEAPPLE PLANTATION MANAGER someone who was confirmed or suspected to have Coronavirus / COVID-19? documented as of this encounter Plan of Treatment Not on filedocumented as of this encounter Visit Diagnoses Not on filedocumented in this encounter Additional Health Concerns Infection Onset Date Last Indicated Resolved Time Rule Out COVID-19 01/08/2020 01/08/2020 01/09/2020 1:3 2 AM PINEAPPLE PLANTATION MANAGER Assessment Noted Time PHQ-9 Depression Total Score: 3 10/18/2019 4:20 PM CDT documented as of this encounter Care Teams Materials Planning Manager Relationship Specialty Start Date End Date Kleber Ledesma PCP - General Physician Delivery Motorcycle Driver - 05/15/14 [facility] Val[facility] Medical Kleber Ledesma Assigned PCP 09/19/17 06/01/20 [facility] Valderrama [address] [place] [address] Sasha Tai, RN Personal Advocate [facility] Family Practice 11/02/19 02/14/20 Liaison (PAL) documented as of this encounter
--- OUTSIDE RECORDS SUMMARY | 2022-01-05 11:33 | XMS_ITS | Encounter Summary ---
:1960 Author Organization [facility] Address [address] [place] [address]. [place] [address] Care Team Providers Name Role Phone Kleber Ledesma PA-C Primary Care Provider [phone] Kleber Ledesma PA-C Unavailable [phone] Sasha Tai RN Unavailable Unavailable Junie Rm PA-C Unavailable Patricia Brown RN Unavailable Kleber Ledesma PA-C Unavailable [phone] Reason for Visit Reason Comments Medication Refill Encounter Details Date Type Department Care Team Description 07/01/2019 Refill [facility] Kleber Ledesma, Medication Refill [place] [facility] [address] [place] [address] [place] [address] [phone] Social History Tobacco Use Types Packs/Day Years [...] been in contact with No / Unsure 06/19/2019 2:52 PM CDT someone who was confirmed or suspected to have Coronavirus / COVID-19? documented as of this encounter Miscellaneous Notes Telephone Encounter - Mariam Alegria RN - 07/04/2019 9:30 AM CDT Prescription approved per [facility] Refill Protocol. Mariam Alegria RN [facility] -- Triage Nurse documented in this encounter Plan of Treatment Not on filedocumented as of this encounter Visit Diagnoses Diagnosis Essential hypertension with goal blood p ressure less than 140/90 documented in this encounter Additional Health Concerns Infection Onset Date Last Indicated Resolved Time Rule Out COVID-19 01/08/2020 01/08/2020 01/09/2020 1:3 2 AM PATTERN STAMPER COVID-19 01/08/2020 01/08/2020 01/29/2020 11:40 PM PATTERN STAMPER Rule Out COVID-19 12/15/2020 12/15/2020 12/16/2020 2:5 5 PM PATTERN STAMPER Rule Out COVID-19 12/23/2020 12/23/2020 12/23/2020 6:3 0 PM PATTERN STAMPER Assessment Noted Time PHQ-9 Depression Total Score: 0 05/08/2019 9:06 AM CDT documented as of this encounter Care Teams Saw Offbearer Relationship Specialty Start Date End Date Kleber Ledesma PCP - General Physician Dermatologist - 05/15/14 [facility] Valderrama Medical Kleber Ledesma Assigned PCP 09/19/17 06/01/20 [facility] Valderrmaa [address] [place] [address] Sasha Tai RN Personal [facility] Practice 11/02/19 02/14/20 Liaison (PAL) Junie Rm, Assigned PCP 06/02/20 06/08/20 [facility] [address] [place] [address] Patricia Brown RN Clinic Tire Buffer 06/03/20 06/03/20 Kleber Ledesma Assigned PCP 06/09/20 [facility] Valderrama [address] [place] [address] documented as of this encounter
--- OUTSIDE RECORDS SUMMARY | 2022-01-05 11:33 | XMS_ITS | Encounter Summary ---
:1960 Author Organization [facility] Address [address] [place] [address] Care Team Providers Name Role Phone Kleber Ledesma PA-C Primary Care Provider [phone] Kleber Ledesma PA-C Unavailable [phone] Sasha Tai RN Unavailable Unavailable Encounter Details Date Type Department Care Team Description 01/06/2020 Travel Social History Tobacco Use Types Packs/Day [...] have you been in contact with Yes 01/06/2020 5:40 PM MANAGER CCU someone who was confirmed or suspected to have Coronavirus / COVID-19? documented as of this encounter Plan of Treatment Not on filedocumented as of this encounter Visit Diagnoses Not on filedocumented in this encounter Additional Health Concerns Assessment Noted Time PHQ-9 Depression Total Score: 3 10/18/2019 4:20 PM CDT documented as of this encounter Care Teams Mine Laborer Relationship Specialty Start Date End Date Kleber Leedsma PCP - General Physician Over [employer] Horizon Targeting Supervisor - 05/15/14 [facility] Valderrama Medical Kleber Ledesma Assigned PCP 09/19/17 06/01/20 [facility] Valderrama [address] [place] [address] Sasha Tai, RN Personal Advocate [facility] Family Practice 11/02/19 02/14/20 Liaison (PAL) documented as of this encounter
--- OUTSIDE RECORDS SUMMARY | 2022-01-05 11:33 | XMS_ITS | Encounter Summary ---
:1960 Author Organization [facility] Address [address] [place] [address] Care Team Providers Name Role Phone Kleber Ledesma PA-C Primary Care Provider [phone] Kleber Ledesma PA-C Unavailable [phone] Encounter Details Date Type Department Care Team Description 09/19/2019 Travel Social History Tobacco Use Types Packs/Day [...] been in contact with No / Unsure 09/19/2019 11:14 AM CDT someone who was confirmed or suspected to have Coronavirus / COVID-19? documented as of this encounter Plan of Treatment Not on filedocumented as of this encounter Visit Diagnoses Not on filedocumented in this encounter Additional Health Concerns Assessment Noted Time PHQ-9 Depression Total Score: 0 05/08/2019 9:06 AM CDT documented as of this encounter Care Teams Survey Technician Relationship Specialty Start Date End Date Kleber Ledesma, PCP - General Physician Bulldozer Mechanic - 05/15/14 [facility] Kleber Ledesma, Assigned PCP 09/19/17 [facility] [address] [place] [address] documented as of this encounter
--- OUTSIDE RECORDS SUMMARY | 2022-01-05 11:33 | XMS_ITS | Encounter Summary ---
:1960 Author Organization [facility] Address [address] [place] [address] Care Team Providers Name Role Phone Kleber Ledesma PA-C Primary Care Provider [phone] Kleber Ledesma PA-C Unavailable [phone] aSsha Tai RN Unavailable Unavailable Reason for Visit Reason Onset Date Comments Results 01/09/2020 Encounter Details Date Type Department Care Team Description 01/09/2020 Telephone [facility] Nithin Galindo, RN Results Emergency Dept [address] [place] [phone] Social History Tobacco Use Types Packs/Day Years [...] with No / Unsure 01/08/2020 11:18 AM BORING MACHINE FEEDER someone who was confirmed or suspected to have Coronavirus / COVID-19? documented as of this encounter Miscellaneous Notes Telephone Encounter - Nithin Galindo RN - 01/09/2020 9:46 AM CST Coronavirus (COVID-19) Notification Caller Name (Patient, parent, daughter/son, grandparent, etc) Patient Reason for call Notify of Positive Coronavirus (COVID-19) lab results, assess symptoms, review [facility] recommendations Lab Result Lab test: 2019-nCoV [employer]-PCR or SARS-CoV-2 PCR Oropharyngeal AND/OR nasopharyngeal swabs is POSITIVE for 2019-nCoV RNA/SARS-COV-2 PCR (COVID-19 virus) RN Recommendations/Instructions per [facility] Coronavirus COVID-19 recommendations Brief introduction script Introduce self then review script: I am calling on behalf of [employer] We were notified that your Coronavirus test (COVID-19) for was POSITIVE for the virus. I have some information to relay to you but first I wanted to mention[facility] will be contacting you shortly [it's possible MD already called Patient] to talk to you more about how you are feeling and other people you have had contact with who might now also have the virus. Also, [facility] is Partnering with the [facility] for Covid-19 research, you may be contacted directly by research staff. Assessment (Inquire about Patient's current symptoms) Assessment Current Symptoms at time of phone call: (if no symptoms, document No symptoms] emesis, tired, body aches Symptoms onset (if applicable) 01/02/20 If at time of call, Patients symptoms hare worsened, the Patient should contact 911 or have someone drive them to Emergency Dept promptly: ??? If Patient calling 911, inform 911 personal that you have tested positive for the Coronavirus (COVID-19). Place mask on and await 911 to arrive. ??? If Emergency Dept, If possible, please have another adult drive you to the Emergency Dept but you need to wear mask when in contact with other people. Review information with Patient Your result was positive. This means you have COVID-19 (coronavirus). We have sent you a letter thatreviews the information that I'll be reviewing with you now. How can I protect others? If you have symptoms: stay home and away from others (self-isolate) until: ??? You've had no fever--and no medicine that reduces fever--for 1 full day (24 hours). And ? Your other symptoms have gotten better. For example, your cough or breathing has improved. And? At least 10 days have passed since your symptoms started. (If you've been told by a doctor that you have a weak immune system, wait 20 days.) If you don't have symptoms: Stay home and away from others (self-isolate) until at least 10 days have passed since your first positive COVID-19 test. (Date test collected) During this time: ??? Stay in your own room, including for meals. Use your own bathroom if you can. ??? Stay away from others in your home. No hugging, kissing or shaking hands. No visitors. ??? Don't go to work, school or anywhere else. ??? Clean ???high touch?? surfaces often (doorknobs, counters, handles, etc.). Use a household cleaning spray or wipes. You'll find a full list on the EPA website at www.epa.gov/pesticide-registration/ plnu-l-cinanbuippyio-hbd-gdrkaoh-ncub-cov-2. ??? Cover your mouth and nose with a mask, tissue or other face covering to avoid spreading germs. ??? Wash your hands and face often with soap and water. ??? Caregivers in these groups are at risk for severe illness due to COVID-19: o People 65 years and older o People who live in a chcf or long-term care facility o People with chronic disease (lung, heart, cancer, diabetes, kidney, liver, immunologic) o People who have a weakened immune system, including those who: - Are in cancer treatment - Take medicine that weakens the immune system, such as corticosteroids - Had a bone marrow or organ transplant - Have an immune deficiency - Have poorly controlled HIV or AIDS - Are obese (body mass index of 40 or higher) - Smoke regularly ??? Caregivers should wear gloves while washing dishes, handling laundry and cleaning bedrooms and bathrooms. ??? Wash and dry laundry with special caution. Don't shake dirty laundry, and use the warmest water setting you can. ??? If you have a weakened immune system, ask your doctor about other actions you should take. ??? For more tips, go to www.cdc.gov/coronavirus/2019-ncov/downloads/10Things.pdf. You should not go back to work until you meet the guidelines above for ending your home isolation. You don't need to be retested for COVID-19 before going back to work--studies show that you won't spread the virus if it's been at least 10 days since your symptoms started (or 20 days, if you have a weak immune system). Employers: This document serves as formal notice of your employee's medical guidelines for going back to work. They must meet the above guidelines before going back to work in person. How can I take care of myself? 1. Get lots of rest. Drink extra fluids (unless a doctor has told you not to). 2. Take Tylenol (acetaminophen) for fever or pain. If you have liver or kidney problems, ask your family doctor if it's okay to take Tylenol. Take either: ??? 650 mg (two 325 mg pills) every 4 to 6 hours, or? 1,000 mg (two 500 mg pills) every 8 hours as needed. ??? Note: Don't take more than 3,000 mg in one day. Acetaminophen is found in many medicines (both prescribed and pnvg-zrc-ccmfvaa medicines). Read all labels to be sure you don't take too much. For children, check the Tylenol bottle for the right dose (based on their age or weight). 3. If you have other health problems (like cancer, heart failure, an organ transplant or severe kidney disease): Call your specialty clinic if you don't feel better in the next 2 days. 4. Know when to call 911: Emergency warning signs include: ??? Trouble breathing or shortness of breath ??? Pain or pressure in the chest that doesn't go away ??? Feeling confused like you haven't felt before, or not being able to wake up ??? Bluish-colored lips or face 5. Sign up for [employer]. We know it's scary to hear that you have COVID-19. We want to track your symptoms to make sure you're okay over the next 2 weeks. Please look for an email from [employer]--this is a free, online program that we'll use to keep in touch. To sign up, follow the link in the email. Learn more at [email or web address]. Where can I get more information? [facility]: [email or web address] ??? Coronavirus Basics: www.health.[facility].mo./diseases/coronavirus/basics.html ??? What to Do If You're Sick: www.cdc.gov/coronavirus/2019-ncov/about/rcrwa-vaso-oxfx.html ??? Ending Home Isolation: www.cdc.gov/coronavirus/2019-ncov/hcp/hoebicykfvo-um-dvaz-patients.html ??? Caring for Someone with COVID-19: www.cdc.gov/coronavirus/2019-ncov/ox-aqi-qfm-sick/gfim-mok-buwmzah.html ??? [facility] clinical trials (COVID-19 research studies): clinicalaffairs.[facility]/arr-hyxncewx-wtpalg A Positive COVID-19 letter will be sent via [employer] or the mail. (Exception, no letters sent to Presurgerical/Preprocedure Patients) Nithin Galindo RN NG MACHINE FEEDER documented in this encounter Plan of Treatment Not on filedocumented as of this encounter Visit Diagnoses Not on filedocumented in this encounter Additional Health Concerns Infection Onset Date Last Indicated Resolved Time Rule Out COVID-19 01/08/2020 01/08/2020 01/09/2020 1:3 2 AM BORING MACHINE FEEDER COVID-19 01/08/2020 01/08/2020 01/29/2020 11:40 PM BORING MACHINE FEEDER Assessment Noted Time PHQ-9 Depression Total Score: 3 10/18/2019 4:20 PM CDT documented as of this encounter Care Teams Sales And Service Engineer Relationship Specialty Start Date End Date Kleber Ledesma PCP - General Physician Crisis Mental Health Therapist - 05/15/14 RACHNA Valderrama Medical Kleber Ledesma Assigned PCP 09/19/17 06/01/20 RACHNA Valderrama [address] [place] [address] Sasha Tai RN Personal Advocate & Family Practice 11/02/19 02/14/20 Liaison (PAL) documented as of this encounter
--- OUTSIDE RECORDS SUMMARY | 2022-01-05 11:33 | XMS_ITS | Encounter Summary ---
:1960 Author Organization [facility] Address [address] [place] [address] Care Team Providers Name Role Phone Kleber Ledesma PA-C Primary Care Provider [phone] Kleber Ledesma PA-C Unavailable [phone] Sasha Tai RN Unavailable Unavailable Reason for Visit Reason Comments Urgent Care Consult sore throat, coughing Encounter Details Date Type Department Care Team Description 01/08/2020 Office Visit [facility] Erlin Bejarano Nausea and vomiting, intractability of vomiting not specified, unspecified vomiting type (Primary Dx); Urgent Care [place] Cye, DO Diarrhea, unspecified type; [address] [place] [address] [address]; [place], [place] [phone] Social History Tobacco Use Types Packs/Day Years [...] with No / Unsure 01/08/2020 11:18 AM PRODUCE MANAGER someone who was confirmed or suspected to have Coronavirus / COVID-19? documented as of this encounter Last Filed Vital Signs Vital Sign Reading Time Taken Comments Blood Pressure - - Pulse 88 01/08/2020 12:03 PM PRODUCE MANAGER Temperature 36.7 ??C (98.1 ??F) 01/08/2020 12:03 PM PRODUCE MANAGER Respiratory Rate 16 01/08/2020 12:03 PM PRODUCE MANAGER Oxygen Saturation 98% 01/08/2020 12:03 PM PRODUCE MANAGER Inhaled Oxygen Concentration - - Weight - - Height - - Body Mass Index - - documented in this encounter Patient Instructions Patient InstructionsElliottgermainErlin, DO - 01/08/2020 11:20 AM CST Discharge Instructions for COVID-19 Patients You have--or may have--COVID-19. Please follow the instructions listed below. If you have a weakened immune system, discuss with your doctor any other actions you need to take. How can I protect others? If you have symptoms (fever, cough, body aches or trouble breathing): ?? Stay home and away from others (self-isolate) until: ? At least 10 days have passed since your symptoms started, And? You've had no fever--and no medicine that reduces fever--for 1 full day (24 hours), And? Your other symptoms have resolved (gotten better). If you don't show symptoms, but testing showed that you have COVID-19: ?? Stay home and away from others (self-isolate). Follow the tips under How do I self-isolate? below for 10 days (20 days if you have a weak immune system). ?? You don't need to be retested for COVID-19 before going back to school or work. As long as you'refever-free and feeling better, you can go back to school, work and other activities after waiting the 10 or 20 days. How do I self-isolate? ?? Stay in your own room, even for meals. Use your own bathroom if you can. ?? Stay away from others in your home. No hugging, kissing or shaking hands. No visitors. ?? Don't go to work, school or anywhere else. ?? Clean high touch surfaces often (doorknobs, counters, handles). Use household cleaning spray orwipes. You'll find a full list of bead trimmer on the EPA website: www.epa.gov/pesticide-registration/lis l-h-qdozwydjsjgix-vun-cqmrvsl-gxuj-cov-2. ?? Cover your mouth and nose with a mask or other face covering to avoid spreading germs. ?? Wash your hands and face often. Use soap and water. ?? Caregivers in these groups are at risk for severe illness due to COVID-19: ? People 65 years and older ? People who live in a custodial or long-term care facility ? People with chronic disease (lung, heart, cancer, diabetes, kidney, liver, immunologic) ? People who have a weakened immune system, including those who: ?? Are in cancer treatment ?? Take medicine that weakens the immune system, such as corticosteroids ?? Had a bone marrow or organ transplant ?? Have an immune deficiency ?? Have poorly controlled HIV or AIDS ?? Are obese (body mass index of 40 or higher) ?? Smoke regularly ?? Caregivers should wear gloves while washing dishes, handling laundry and cleaning bedrooms and bathrooms. ?? Use caution when washing and drying laundry: Don't shake dirty laundry and use the warmest water setting that you can. ?? For more tips on managing your health at home, go to www.cdc.gov/coronavirus/2019-ncov/downloads/10Things.pdf. How can I take care of myself at home? 1. Get lots of rest. Drink extra fluids (unless a doctor has told you not to). 2. Take Tylenol (acetaminophen) for fever or pain. If you have liver or kidney problems, ask your family doctor if it's okay to take Tylenol. Adults can take either: ? 650 mg (two 325 mg pills) every 4 to 6 hours, or? 1,000 mg (two 500 mg pills) every 8 hours as needed. ? Note: Don't take more than 3,000 mg in one day. Acetaminophen is found in many medicines (both prescribed and llgu-dhi-archqgo medicines). Read all labels to be sure you don't take too much. For children, check the Tylenol bottle for the right dose. The dose is based on the child's age or weight. 3. If you have other health problems (like cancer, heart failure, an organ transplant or severe kidney disease): Call your specialty clinic if you don't feel better in the next 2 days. 4. Know when to call 911. Emergency warning signs include: ? Trouble breathing or shortness of breath ? Pain or pressure in the chest that doesn't go away ? Feeling confused like you haven't felt before, or not being able to wake up ? Bluish-colored lips or face 5. Your doctor may have prescribed a blood thinner medicine. Follow their instructions. Where can I get more information? ?? [facility] - About COVID-19: [email or web address]/[email or web address] ?? CDC - What to Do If You're Sick: www.cdc.gov/coronavirus/2019-ncov/about/zdicl-mgek-gowb.html ?? CDC - Ending Home Isolation: www.cdc.gov/coronavirus/2019-ncov/hcp/efmbeaflpid-hs-bjlf-patients.html ?? CDC - Caring for Someone: www.cdc.gov/coronavirus/2019-ncov/ww-zdy-fha-sick/vrbi-sac-abthdgg.html ?? [facility] - Interim Guidance for Hospital Discharge to Home: www.[facility].va./diseases/coronavirus/hcp/hospdischarge.pdf ?? [facility] clinical trials (COVID-19 research studies): clinicalaffairs.[facility]/nkc-umeuwxvx-sfazme ?? Below are the COVID-19 hotlines at the [facility] ([facility]). Interpreters are available. ? For health questions: Call 190-618-1123 or (7 a.m. to 7 p.m.) ? For questions about schools and childcare: Call 413-949-4348 or (7 a.m. to 7 p.m.) For informational purposes only. Not to replace the advice of your health care provider. Clinically reviewed by the Infection Prevention Team. Copyright ?? 2020 [employer]. All rights reserved. [employer] 420645 - REV 09/12/19. UCE MANAGER documented in this encounter Progress Notes Nicci Payan CMA - 01/08/2020 11:20 AM CST Clinic Administered Medication Documentation Oral Medication Documentation Patient was given Ondansetron (Zofran) . Prior to medication administration, verified patients identity using patient???s name and date of . Please see MAR and medication order for additional information. Was entire amount of medication used? Yes Expiration Date: 06/2021 UCE MANAGER Erlin Bejarano, - 01/08/2020 11:20 AM CST SUBJECTIVE: Amie Scott is a 59 year old female presenting with a chief complaint of cough , sore throat and n/v/d. Onset of symptoms was day(s) ago. Current and Associated symptoms: none Treatment measures tried include OTC. Predisposing factors include None. Past Medical History: Diagnosis Date ??? Chest discomfort ??? High cholesterol ??? Hypertension ??? Moderate persistent asthma 2004 cold air trigger Allergies Allergen Reactions ??? No Known Drug Allergies Social History Tobacco Use ??? Smoking status: Former Smoker ??? Smokeless tobacco: Never Used ??? Tobacco comment: quit smoking at 21 yrs old. smoked 2 to 31/03 ppd Substance Use Topics ??? Alcohol use: Yes Alcohol/week: 2.0 standard drinks Types: 1 Glasses of wine, 1 Shots of liquor per week Comment: socially ROS: SKIN: no rash No fevers OBJECTIVE: Pulse 88 Temp 98.1 ??F (36.7 ??C) Resp 16 LMP 02/22/2010 (LMP Unknown) SpO2 98% GENERAL APPEARANCE: healthy, alert and no distress EYES: PERRL, conjunctiva clear HENT: ear canals and TM's normal. Nose and mouth without ulcers, erythema or lesions RESP: lungs clear to auscultation - no rales, rhonchi or wheezes ABDOMEN: soft, nontender, SKIN: no suspicious lesions or rashes ICD-10-CM 1. Nausea and vomiting, intractability of vomiting not specified, unspecified vomiting type R11.2 Group A Streptococcus PCR Throat Swab WBC count Enteric Bacteria and Virus Panel by JORDIN Stool ondansetron (ZOFRAN-ODT) ODT tab 4 mg ondansetron (ZOFRAN-ODT) 4 MG ODT tab 2. Diarrhea, unspecified type R19.7 WBC count Enteric Bacteria and Virus Panel by JORDIN Stool 3. Cough R05 WBC count CANCELED: Symptomatic COVID-19 Virus (Coronavirus) by PCR 4. Throat pain R07.0 Streptococcus A Rapid Scr w Reflx to PCR WBC count quarantine PPE used No AGP Pt masked Fluids/Rest, f/u if worse/not any better UCE MANAGER documented in this encounter Miscellaneous Notes Addendum Note - Cheyenne Cox - 01/08/2020 11:20 AM PRODUCE MANAGER Addended by: CHEYENNE COX on: 01/09/2020 08:35 AM Modules accepted: Orders UCE MANAGER documented in this encounter Plan of Treatment Not on filedocumented as of this encounter Procedures Procedure Name Priority Date/Time Associated Diagnosis Comme nts WBC COUNT STAT 01/08/2020 12:22 Nausea and vomiting, Res ults for this PM PRODUCE MANAGER intractability of procedure are in vomiting not the results specified, unspecified secti on. vomiting type Diarrhea, unspecified type Cough Throat pain STREPTOCOCCUS A RAPID STAT 01/08/2020 11:49 Throat pain Re sults for this SCREEN W REFELX TO AM PRODUCE MANAGER procedure are in PCR the results section. GROUP A STREPTOCOCCUS Routine 01/08/2020 11:49 Nausea and vomi ting, Results for this PCR THROAT SWAB AM PRODUCE MANAGER intractability of procedu re are in vomiting not the results specified, unspecified secti on. vomiting type documented in this encounter Results WBC count (01/08/2020 12:22 PM PRODUCE MANAGER) P athologist Signature WBC 7.2 4.0 - 11.0 01/08/2020 [facility] 10e9/L 12:50 PM PRODUCE MANAGER [facility] Specimen Anatomical Collection Method Collection Time Receive d Time (Source) Location / / Volume Laterality Blood specimen 01/08/2020 12:22 0 (specimen) PM PRODUCE MANAGER 12:23 PM PRODUCE MANAGER Erlin Bejarano DO LAB - BLOOD ORDERABLES Performing Organization Address City/State/ZIP Code Phon e Number [facility] [address] [place] [address] Group A Streptococcus PCR Throat Swab (01/08/2020 11:49 AM PRODUCE MANAGER) [employer] Method Time Signature Specimen Throat 01/08/2020 [place] Description 12:02 PM [facility] Strep Group A Not NDET^Not 01/08/2020 [facility] Detected Detected 3:17 PM [facility] Comment: Group A Streptococcus DNA is not detecte d. FDA approved assay performed using USDS id GeneXpert real-time PCR. Specimen Anatomical Collection Method Collection Time Receive d Time (Source) Location / / Volume Laterality Specimen from 01/08/2020 11:49 01/08/2020 throat AM PRODUCE MANAGER 11:54 AM PRODUCE MANAGER (specimen) Erlin Bejarano DO LAB - MICRO GENERAL ORDERABL ES Performing Organization Address City/State/ZIP Code Phon e Number [facility] [address] [place] [address] [facility] [address] [place], [place] [id number] Streptococcus A Rapid Scr w Reflx to PCR (01/08/2020 11:49 AM PRODUCE MANAGER) [employer] Method Time Signature Strep Specimen Throat 01/08/2020 [place] Description 11:49 AM [facility] Streptococcus Negative NEG^Negat 01/08/2020 [place] Group A Rapid naman 12:02 PM [facility] Comment: No Group A streptococcal antigen detecte d by immunoassay. Confirmatory testing in progress. Specimen Anatomical Collection Method Collection Time Receive d Time (Source) Location / / Volume Laterality Specimen from 01/08/2020 11:49 01/08/2020 throat AM PRODUCE MANAGER 11:54 AM PRODUCE MANAGER (specimen) Erlin Bejarano DO LAB - MICRO GENERAL ORDERABL ES Performing Organization Address City/State/ZIP Code Phon e Number [facility] [address] [address] documented in this encounter Visit Diagnoses Diagnosis Nausea and vomiting, intractability of v omiting not specified, unspecified vomiting type - Primary Diarrhea, unspecified type Cough Throat pain documented in this encounter Administered Medications Inactive Administered Medications - up to 3 most recent administrations Medication Order MAR Action Action Date Dose Rate Site ondansetron (ZOFRAN-ODT) ODT tab 4 Given 01/08/2020 1:18 PM PRODUCE MANAGER 4 mg mg 4 mg, Oral, ONCE, On 01/08/20 at 1300, For 1 dose, With dry hands, peel back foil backing and gently remove tablet. Do not push oral disintegrating tablet through foil backing. Administer immediately on tongue and oral disintegrating tablet dissolves in seconds, then swallow with saliva. Liquid not required. documented in this encounter Additional Health Concerns Infection Onset Date Last Indicated Resolved Time Rule Out COVID-19 01/08/2020 01/08/2020 01/09/2020 1:3 2 AM PRODUCE MANAGER COVID-19 01/08/2020 01/08/2020 01/29/2020 11:40 PM PRODUCE MANAGER Assessment Noted Time PHQ-9 Depression Total Score: 3 10/18/2019 4:20 PM CDT documented as of this encounter Care Teams Director Embalmer Relationship Specialty Start Date End Date Kleber Ledesma PCP - General Physician Network Technology Instructor - 05/15/14 RACHNA Valderrama Medical Kleber Ledesma Assigned PCP 09/19/17 06/01/20 RACHNA Valderrama [id number] [place] [address] Sasha Tai, RN Personal Advocate & Family Practice 11/02/19 02/14/20 Liaison (PAL) documented as of this encounter
--- OUTSIDE RECORDS SUMMARY | 2022-01-05 11:33 | XMS_ITS | Encounter Summary ---
:1960 Author Organization [facility] Address [address] [place] [address]. [place] [address] Care Team Providers Name Role Phone Kleber Ledesma PA-C Primary Care Provider [phone] Kleber Ledesma PA-C Unavailable [phone] Sasha Tai RN Unavailable Unavailable Reason for Visit Reason Comments Medication Refill Encounter Details Date Type Department Care Team Description 12/25/[address] [facility] Kleber Ledesma, Medication Refill [place] [address] [facility], [address] [place] [address] [place] [address] [place] [address] [phone] Social History Tobacco Use Types Packs/Day Years Used Date Smoking Tobacco: Former Smokeless Tobacco: Never Comments: quit smoking at 21 yrs old. sm oked 2 to 21/2 ppd Alcohol Use Standard Drinks/Week Comments Yes 2 (1 standard drink = 0.6 oz pure alcoho l) socially Sex Assigned at Date Recorded Not on file documented as of this encounter Miscellaneous Notes Telephone Encounter - Marry Salas - 12/29/2019 11:39 AM CST Gave pt message below Marry Salas/Molding Fitter CAL RECRUITER Telephone Encounter - Dewey Arredondo PA-C - 12/27/2019 3:45 PM CST Sent in 90 day refill. Patient is due for physical exam. Please help schedule. Dewey Arredondo PA-C on 12/27/2019 at 3:45 PM CAL RECRUITER Telephone Encounter - Patricia Rodriguez RN - 12/27/2019 2:29 PM CST Routing refill request to provider for review/approval because: Labs not current: LDL Patricia Rodriguez RN CAL RECRUITER documented in this encounter Plan of Treatment Not on filedocumented as of this encounter Visit Diagnoses Diagnosis Mixed hyperlipidemia documented in this encounter Additional Health Concerns Assessment Noted Time PHQ-9 Depression Total Score: 3 10/18/2019 4:20 PM CDT documented as of this encounter Care Teams Seo Engineer Relationship Specialty Start Date End Date Kleber Ledesma PCP - General Physician Scraper Tender - 05/15/14 R[facility] Kleber Ledesma Assigned PCP 09/19/17 06/01/20 RACHNA Valderrama [address] [place] [address] Sasha Tai RN Personal Advocate [facility] Family Practice 11/02/19 02/14/20 Liaison (PAL) documented as of this encounter
--- OUTSIDE RECORDS SUMMARY | 2022-01-05 11:33 | XMS_ITS | Encounter Summary ---
:1960 Author Organization [place] Address [address] [place] [address]. [place] [address] Care Team Providers Name Role Phone Kleber Ledesma PA-C Primary Care Provider [phone] Kleber Ledesma PA-C Unavailable [phone] Encounter Details Date Type Department Care Team Description 06/19/2019 Results Only LABORATORY RESULTS Bob Vogel MD [facility] [address] [address] (Wo rk) Social History Tobacco Use Types [...] Priority Date/Time Associated Diagnosis Comme nts COVID-19 SPIKE RBD Routine 06/19/2019 2:49 PM Res ults for this [facility] [facility] REFLEX CDT procedure are in the results section. documented in this encounter Results COVID-19 Virus (Coronavirus) Antibody (06/19/2019 2:49 PM CDT) Analysis Performed At Patho logist Time Signature COVID-19 Nestor Negative 06/21/2019 ADVANCED RBD [place] 12:30 AM CDT [facility], [facility] Comment: No COVID-19 antibodies detected. ??Patie nts within 10 days of symptom onset for COVID-19 may not produce sufficient lev els of detectable antibodies. ?? Immunocompromised COVID-19 patients may take longer to develop antibodies. COVID-19 Nestor RBD Not Applicable 06/21/2019 12:30 AM [facility]ANCED RESEARCH AND [place] Titer CDT DIAGNOSTIC LABORATOR Y, [facility] Comment: Qualitative screen for total antibodies to COVID-19 (SARS-CoV-2) with semi-quantitative measurement of IgG COV ID-19 antibodies by endpoint titer. ?? COVID-19 antibodies may be elevated due to a past or current infection. Negative results do not rule out COVID-1 9 infection. ??Results from antibody testing should not be used as the sole b asis to diagnose or exclude SARS-CoV-2 infection or to inform infection status . ??COVID-19 PCR test should be ordered if current infection is suspected. ??Fa lse positive results may occur in rare cases due to cross-reacting antibodies. This test was developed and its performa nce characteristics determined by the [facility] ([facility]), which is regulated under CLIA as qualifi ed to perform high-complexity testing. ??This test has not been reviewed by e FDA. Testing performed by [facility], [facility], [address], [place] [address] Specimen Anatomical Collection Method Collection Time Receive d Time (Source) Location / / Volume Laterality 06/19/2019 2:49 PM 0 2:54 CDT PM CDT John Vogel MD LAB - BLOOD ORDERABLES Performing Organization Address City/State/ZIP Code Phon e Number [facility] [address] DIAGNOSTIC LABORATORY, [address] [place] [address] [address] documented in this encounter Visit Diagnoses Not on filedocumented in this encounter Additional Health Concerns Assessment Noted Time PHQ-9 Depression Total Score: 0 05/08/2019 9:06 AM CDT documented as of this encounter Care Teams Cork Wirer Relationship Specialty Start Date End Date Ledesma, Kleber Jannie, PCP - General Physician Surface Supervisor - 05/15/14 [facility] Kleber Ledesma, Assigned PCP 09/19/17 R[place] [address] [place] [id number] documented as of this encounter
--- OUTSIDE RECORDS SUMMARY | 2022-01-05 11:33 | XMS_ITS | Encounter Summary ---
:1960 Author Organization [place] Address [address] [place] [address] Care Team Providers Name Role Phone Kleber Ledesma PA-C Primary Care Provider [phone] Kleber Ledesma PA-C Unavailable [phone] Reason for Visit Reason Comments Wound Infection Encounter Details Date Type Department Care Team Description 05/29/2020 Emergency [facility] Emergency Dept [address] [place] [address] Social History Tobacco Use Types Packs/Day Years [...] Sign Reading Time Taken Comments Blood Pressure 130/76 05/29/2020 8:12 PM CDT Pulse 85 05/29/2020 8:12 PM CDT Temperature 37.1 ??C (98.7 ??F) 05/29/2020 8:12 PM CDT Respiratory Rate 16 05/29/2020 8:12 PM CDT Oxygen Saturation 98% 05/29/2020 8:12 PM CDT Inhaled Oxygen Concentration - - Weight 68 kg (150 lb) 05/29/2020 8:12 PM CDT Height - - Body Mass Index 27.44 11/14/2018 10:12 AM CDT documented in this encounter Medications at Time of Discharge Medication Sig Dispensed Refills Start Date End Date amoxicillin-clavulanate Take 1 tablet by 0 202006/02/2020 (AUGMENTIN) 875-125 MG mouth 2 times daily tablet atenolol-chlorthalidone TAKE ONE TABLET BY 90 tablet 1 06/0906/20/2020 (TENORETIC) 50-25 MG MOUTH EVERY DAY tabletIndications: Essential hypertension with goal blood pressure less than 140/90 cetirizine (ZYRTEC) 10 MG Take 1 tablet (10 90 tablet 0 05/31/2020 tabletIndications: Acute mg) by mouth daily sinusitis with symptoms > 10 days citalopram (CELEXA) 20 MG TAKE ONE TABLET BY 90 tablet 0 06/05/2020 tabletIndications: MOUTH EVERY DAY Adjustment disorder with mixed anxiety and depressed mood dicyclomine (BENTYL) 20 MG Take 1 tablet (20 40 tablet 0 06/01/2021 tabletIndications: mg) by mouth 4 Diarrhea, unspecified times daily as type, Abdominal cramping needed (abdominal cramping) fluticasone (FLONASE) 50 [place] 1 spray into 16 g 3 05/31/2020 MCG/ACT nasal both nostrils daily sprayIndications: Acute sinusitis with symptoms > 10 days simvastatin (ZOCOR) 20 MG TAKE ONE TABLET BY 90 tablet 0 05/31/2020 tabletIndications: Mixed MOUTH AT BEDTIME hyperlipidemia traMADol (ULTRAM) 50 MG Take 50 mg by mouth 0 06/05/2020 tablet every 8 hours as needed documented as of this encounter ED Notes Dimitri Smith RN - 05/29/2020 8:14 PM CDT Pt reports left ankle pain, has 2 small 0.5 cm scabs about 3 cm apart, red warm to touch baseball sized point lay ira around wounds. Pt reports this was inside her home and she did not see any animals but is concerned there may have been a bat. documented in this encounter Plan of Treatment Not on filedocumented as of this encounter Visit Diagnoses Not on filedocumented in this encounter Additional Health Concerns Assessment Noted Time PHQ-9 Depression Total Score: 3 10/18/2019 4:20 PM CDT documented as of this encounter Care Teams [place] Relationship Specialty Start Date End Date Kleber Ledesma, PCP - General Physician Parts Picker - 05/15/14 [facility] Kleber Ledesma, Assigned PCP 09/19/17 PAKerrie [id number] [place] [id number] documented as of this encounter
--- OUTSIDE RECORDS SUMMARY | 2022-01-05 11:33 | XMS_ITS | Encounter Summary ---
:1960 Author Organization [facility] Address [address] [place] [id number] Care Team Providers Name Role Phone Kleber Ledesma PA-C Primary Care Provider [phone] Kleber Ledesma PA-C Unavailable [phone] Junie Rm PA-C Unavailable Reason for Visit Reason Comments Wound Check Auth/Cert Specialty Diagnoses / Procedures Referred By Contact Refer red To Contact Pediatrics Diagnoses Cellulitis of left lower extremity Cat bite, initial encounter Cellulitis of left lower extremity Cat bite, initial encounter [facility] [address] [place], [place] [address] Phone: [phone] Fax: Referral ID Status Reason Start Date Expiration Date Visits Requ ested Visits Authorized [id number] 1 1 Encounter Details Date Type Department Care Team Description 05/31/2020 - [facility] Bg Connelly PA-C [facility] [address] [place] [address] Cellulitis of left lower extremity; 06/02/2020 Encounter [facility] Marcus Ordoñez DO [address] [place] [address] Cat bite, initial encounter [address] [place] [address] Social History Tobacco Use Types Packs/Day Years [...] Sign Reading Time Taken Comments Blood Pressure 131/92 06/02/2020 8:09 AM CDT Pulse 61 06/02/2020 8:09 AM CDT Temperature 36.7 ??C (98 ??F) 06/02/2020 8:09 AM CDT Respiratory Rate 16 06/02/2020 8:09 AM CDT Oxygen Saturation 97% 06/02/2020 8:09 AM CDT Inhaled Oxygen Concentration - - Weight 64.7 kg (142 lb 11.2 oz) 05/31/2020 3:22 PM CDT Height - - Body Mass Index 26.1 05/31/2020 10:26 AM CDT documented in this encounter Discharge Summaries Marcus Ordoñez DO - 06/02/2020 12:00 PM CDT Hospitalist Discharge Summary [facility] Amie Scott Date of : 1960 Age: [age] year old Date of Admission: 05/31/2020 Date of Discharge: 06/02/2020 12:00 PM Admitting Physician: Marcus Ordoñez DO Discharge Physician: Marcus Ordoñez DO Discharging Service: Hospitalist Primary Provider: Kleber Ledesma Discharge Diagnosis: 1. ??Left Ankle Cellulitis 2. ??Hypertension 3. ??Hyperlipidemia 4. ??Mood Disorder 5. ??Asthma Discharge Disposition: Discharged to home Allergies: Allergies Allergen Reactions ??? No Known Drug Allergies Discharge Medications: Discharge Medication List as of 06/02/2020 11:24 AM START taking these medications Details doxycycline hyclate (VIBRA-TABS) 100 MG tablet Take 1 tablet (100 mg) by mouth 2 times daily for 7 days, Disp-14 tablet, R-0, E-Prescribe metroNIDAZOLE (FLAGYL) 500 MG tablet Take 1 tablet (500 mg) by mouth 3 times daily for 7 days, Disp-21 tablet, R-0, E-Prescribe CONTINUE these medications which have NOT CHANGED Details atenolol-chlorthalidone (TENORETIC) 50-25 MG tablet TAKE ONE TABLET BY MOUTH EVERY DAY, Disp-90 tablet,R-1, E-Prescribe citalopram (CELEXA) 20 MG tablet TAKE ONE TABLET BY MOUTH EVERY DAY, Disp-90 tablet, R-0, E-Prescribe dicyclomine (BENTYL) 20 MG tablet Take 1 tablet (20 mg) by mouth 4 times daily as needed (abdominal cramping), Disp-40 tablet, R-0, E-Prescribe traMADol (ULTRAM) 50 MG tablet Take 50 mg by mouth every 8 hours as needed , Historical STOP taking these medications amoxicillin-clavulanate (AUGMENTIN) 875-125 MG tablet Comments: Reason for Stopping: Condition on Discharge: Discharge condition: Fair Discharge vitals: Blood pressure (!) 131/92, pulse 61, temperature 98 ??F (36.7 ??C), temperature source Oral, resp. rate 16, weight 64.7 kg (142 lb 11.2 oz), last menstrual period 02/22/2010, SpO2 97 %, not currently . Code status on discharge: Full Code BASIC PHYSICAL EXAMINATION: GENERAL: No apparent distress. CARDIOVASCULAR: Regular rate and rhythm without murmurs. PULMONARY: Clear to auscultation bilaterally. GASTROINTESTINAL: Abdomen soft, non-tender. EXTREMITIES: No edema, pulses intact. NEUROLOGIC: No focal deficits. History of Illness: See detailed admission note for full details. Procedures excluding imaging which is summarized below: Please see details in the electronic medical record. Consultations: None Significant Results: Results for orders placed or performed during the hospital encounter of 05/31/20 XR Ankle Left G/E 3 Views Narrative XR ANKLE LEFT G/E 3 VIEWS 05/31/2020 3:25 PM HISTORY: s/p bite with cellulitis, evaluate for foreign body Impression IMPRESSION: Soft tissue swelling. No radiopaque foreign body. No evidence of fracture. The ankle mortise appears congruent. MARCUS SIMENTAL MD Transthoracic Echocardiogram Results: No results found for this or any previous visit (from the past 4320 hour(s)). Pending Results: Unresulted Labs Ordered in the Past 30 Days of this Admission Date and Time Order Name Status Description 05/31/2020 1254 Blood culture Preliminary 05/31/2020 1234 Blood culture Preliminary Discharge Instructions and Follow-Up: Discharge instructions and follow-up: Discharge Procedure Orders Reason for your hospital stay Order Comments: Left ankle cellulitis Follow-up and recommended labs and tests Order Comments: Follow up with primary care provider, Kleber Ledesma, within 7 days for hospital follow- up. The following labs/tests are recommended: CBC, BMP. Continue to elevate your ankle for the swelling. Use ibuprofen and tylenol for pain relief as needed. Avoid alcohol with metronidazole and avoid sunlight with doxycycline. If swelling worsens or you develop fever or worsening erythema of the ankle, return to the emergencydepartment. Activity Order Comments: Your activity upon discharge: activity as tolerated Order Specific Question Answer Comments Is discharge order? Yes Full Code Order Specific Question Answer Comments Code status determined by: Discussion with patient/ legal decision maker Diet Order Comments: Follow this diet upon discharge: Orders Placed This Encounter Combination Diet Regular Diet Adult Order Specific Question Answer Comments Is discharge order? Yes Hospital Course: Amie Scott is a 60 year old female with a history of hypertension, hyperlipidemia, asthma, COVID-19 infection??admitted on 05/31/2020 with cat bite. ??The patient failed outpatient antibiotics withAugmentin. ??The patient did have cellulitis of her left ankle. ??In the emergency department the patient was started on IV??Unasyn. ??On 06/01/2020 the patient's cellulitis had improved and erythema had improved. On 06/02/2020, the patient's symptoms and erythema had improved. The patient was switched to Doxycycline and Metronidazole for 10 days total of antibiotics to follow up with her primary care doctor in 1 week. On 06/02/2020, the patient was medically stable for discharge home. The patient was seen, examined, and counseled on this day. The hospitalization and plan of care was reviewed with the patient extensively. All questions were addressed and the patient agreed to follow-up as noted above. Total time spent in face to face contact with the patient and coordinating discharge was: 33 Minutes DO [facility] Hospital[place] [address] Pager: 06/02/2020 documented in this encounter Discharge Instructions AttachmentsThe following attachments cannot be sent through Care Everywhere. Cellulitis, Discharge Instructions for (Marshallese)DOXYCYCLINE HYCLATE ORAL CAPSULE (YEMENI)METRONIDAZOLE ORAL CAPSULE (YEMENI)documented in this encounter Medications at Time of Discharge Medication Sig Dispensed Refills Start Date End Date doxycycline hyclate Take 1 tablet (100 14 tablet 0 06/03/19 21 06/09/2020 (VIBRA-TABS) 100 MG mg) by mouth 2 tabletIndications: times daily for 7 Cellulitis of left lower days extremity metroNIDAZOLE (FLAGYL) 500 Take 1 tablet (500 21 tablet 0 0 06/02/2020 06/09/2020 MG tabletIndications: mg) by mouth 3 Cellulitis of left lower times daily for 7 extremity days atenolol-chlorthalidone TAKE ONE TABLET BY 90 tablet 1 06/0906/20/2020 (TENORETIC) 50-25 MG MOUTH EVERY DAY tabletIndications: Essential hypertension with goal blood pressure less than 140/90 citalopram (CELEXA) 20 MG TAKE ONE TABLET BY 90 tablet 0 06/05/2020 tabletIndications: MOUTH EVERY DAY Adjustment disorder with mixed anxiety and depressed mood dicyclomine (BENTYL) 20 MG Take 1 tablet (20 40 tablet 0 06/01/2021 tabletIndications: mg) by mouth 4 Diarrhea, unspecified times daily as type, Abdominal cramping needed (abdominal cramping) traMADol (ULTRAM) 50 MG Take 50 mg by mouth 0 06/05/2020 tablet every 8 hours as needed documented as of this encounter Progress Notes Marcus Ordoñez DO - 06/02/2020 9:20 AM CDT [facility] Hospitalist Progress Note Name: Amie Scott Provider: Marcus Ordoñez DO Date of Service: 06/02/2020 Summary of Stay: Amie Scott is a 60 year old female with a history of hypertension, hyperlipidemia, asthma, COVID-19 infection admitted on 05/31/2020 with cat bite. The patient failed outpatient antibiotics with Augmentin. The patient did have cellulitis of her left ankle. In the emergency department the patient was started on IV Unasyn. On 06/01/2020 the patient's cellulitis had improved and erythema had improved. On 06/02/2020, the patient's symptoms and erythema had improved. The patient was switched to Doxycycline and Metronidazole for 10 days total of antibiotics to follow up with her primary care doctor in 1 week. On 06/02/2020, the patient was medically stable for discharge home. Problem List: 1. Left Ankle Cellulitis - Continue IV Unasyn - switch to PO doxycycline + flagyl for 10 days total - Improving - Discontinue IVF - PRN ibuprofen for pain ?? 2. Hypertension - Continue atenolol - Hold chlorthalidone ?? 3. Hyperlipidemia - Diet controlled ?? 4. Mood Disorder - Continue citalopram ?? 5. Asthma - PRN albuterol TODAY'S PLAN: CRP is improved. Erythema is improved. Swelling still apparent. Encouraged pt to use ibuprofen and elevate ankle. Pt is medically stable for discharge home today. DVT Prophylaxis: Pneumatic Compression Devices Code Status: Full Code Diet: Combination Diet Regular Diet Adult Mosquera Catheter: not present Disposition: Expected discharge today to home. Goals prior to discharge include antibiotic plan established. Family updated today: No Interval History Pt seen and examined. Pt states her ankle hurts a bit today but attributes this to not elevating herankle overnight and walking on it yesterday. -Data reviewed today: I personally reviewed all new labs and imaging results over the last 24 hours. Physical Exam Temp: 98 ??F (36.7 ??C) Temp src: Oral BP: (!) 131/92 Pulse: 61 Resp: 16 SpO2: 97 % O2 Device: None (Room air) Vitals: 05/31/20 1130 05/31/20 1522 Weight: 64.9 kg (143 lb) 64.7 kg (142 lb 11.2 oz) Vital Signs with Ranges Temp: [97.5 ??F (36.4 ??C)-98.2 ??F (36.8 ??C)] 98 ??F (36.7 ??C) Pulse: [61-68] 61 Resp: [16] 16 BP: (128-131)/(71-92) 131/92 SpO2: [95 %-98 %] 97 % I/O last 3 completed shifts: In: 480 [P.O.:480] Out: - GENERAL: No apparent distress. Awake, alert, and fully oriented. HEENT: Normocephalic, atraumatic. Extraocular movements intact. CARDIOVASCULAR: Regular rate and rhythm without murmurs or rubs. No S3. PULMONARY: Clear bilaterally. GASTROINTESTINAL: Soft, non-tender, non-distended. Bowel sounds normoactive. EXTREMITIES: 1+ non pitting edema of left ankle NEUROLOGICAL: CN 2-12 grossly intact, no focal neurological deficits. DERMATOLOGICAL: No rash, ulcer, bruising, nor jaundice. Medications ??? acetaminophen 1,000 mg Oral Q8H ??? ampicillin-sulbactam (UNASYN) IV 3 g Intravenous Q6H ??? atenolol 50 mg Oral Daily ??? citalopram 20 mg Oral Daily ??? famotidine 20 mg Oral BID ??? sodium chloride (PF) 3 mL Intracatheter Q8H Data Laboratory: Recent Labs Lab 06/02/20 0711 05/31/20 1213 WBC 4.7 8.9 HGB 11.2* 13.1 HCT 36.3 40.3 MCV 88 86 PLT 260 298 Recent Labs Lab 06/02/20 0711 05/31/20 1213 NA 142 138 POTASSIUM 3.8 3.5 CHLORIDE 112* 105 CO2 28 31 ANIONGAP 2* 2* GLC 90 103* BUN 14 14 CR 0.82 0.79 GFRESTIMATED 77 81 GFRESTBLACK 90 >90 LETTY 8.4* 8.9 Recent Labs Lab 05/31/20 1316 05/31/20 1213 CULT No growth after 2 days No growth after 2 days Imaging: No results found for this or any previous visit (from the past 24 hour(s)). Marcus Ordoñez DO [facility] [place] [address] Pager: 06/02/2020 Marcus Ordoñez, - 06/01/2020 1:35 PM CDT [facility] Hospitalist Progress Note Name: Amie Scott Provider: Marcus Ordoñez DO Date of Service: 06/01/2020 Summary of Stay: Amie Scott is a 60 year old female with a history of hypertension, hyperlipidemia, asthma, COVID-19 infection admitted on 05/31/2020 with cat bite. The patient failed outpatient antibiotics with Augmentin. The patient did have cellulitis of her left ankle. In the emergency department the patient was started on IV Unasyn. On 06/01/2020 the patient's cellulitis had improved and erythema had improved. Problem List: 1. Left Ankle Cellulitis - Continue IV Unasyn - Improving - Discontinue IVF - If continued improvement, would anticipate possible discharge home tomorrow with Doxycycline plus Flagyl 2. Hypertension - Continue atenolol - Hold chlorthalidone 3. Hyperlipidemia - Diet controlled 4. Mood Disorder - Continue citalopram 5. Asthma - PRN albuterol TODAY'S PLAN: Continue IV Unasyn. Possible discharge home tomorrow. DVT Prophylaxis: Pneumatic Compression Devices Code Status: Full Code Diet: Combination Diet Regular Diet Adult Mosquera Catheter: not present Disposition: Expected discharge in 1 day to home. Goals prior to discharge include antibiotic plan established. Family updated today: No Interval History Patient seen and examined. Patient states the pain in her left foot is much better today. -Data reviewed today: I personally reviewed all new labs and imaging results over the last 24 hours. Physical Exam Temp: 97.8 ??F (36.6 ??C) Temp src: Oral BP: 132/78 Pulse: 66 Resp: 16 SpO2: 96 % O2 Device: None (Room air) Vitals: 05/31/20 1130 05/31/20 1522 Weight: 64.9 kg (143 lb) 64.7 kg (142 lb 11.2 oz) Vital Signs with Ranges Temp: [97.8 ??F (36.6 ??C)-98.4 ??F (36.9 ??C)] 97.8 ??F (36.6 ??C) Pulse: [66-81] 66 Resp: [16] 16 BP: (122-139)/(76-83) 132/78 Cuff Mean (mmHg): [103] 103 SpO2: [96 %-100 %] 96 % I/O last 3 completed shifts: In: 240 [P.O.:240] Out: - GENERAL: No apparent distress. Awake, alert, and fully oriented. HEENT: Normocephalic, atraumatic. Extraocular movements intact. CARDIOVASCULAR: Regular rate and rhythm without murmurs or rubs. No S3. PULMONARY: Clear bilaterally. GASTROINTESTINAL: Soft, non-tender, non-distended. Bowel sounds normoactive. EXTREMITIES: Edema of left ankle NEUROLOGICAL: CN 2-12 grossly intact, no focal neurological deficits. DERMATOLOGICAL: No rash, ulcer, bruising, nor jaundice. Medications ??? sodium chloride 100 mL/hr at 06/01/20 0210 ??? acetaminophen 1,000 mg Oral Q8H ??? ampicillin-sulbactam (UNASYN) IV 3 g Intravenous Q6H ??? atenolol 50 mg Oral Daily ??? citalopram 20 mg Oral Daily ??? famotidine 20 mg Oral BID ??? sodium chloride (PF) 3 mL Intracatheter Q8H Data Laboratory: Recent Labs Lab 05/31/20 1213 WBC 8.9 HGB 13.1 HCT 40.3 MCV 86 PLT 298 Recent Labs Lab 05/31/20 1213 NA 138 POTASSIUM 3.5 CHLORIDE 105 CO2 31 ANIONGAP 2* GLC 103* BUN 14 CR 0.79 GFRESTIMATED 81 GFRESTBLACK >90 LETTY 8.9 Recent Labs Lab 05/31/20 1316 05/31/20 1213 CULT No growth after 21 hours No growth after 21 hours Imaging: Recent Results (from the past 24 hour(s)) XR Ankle Left G/E 3 Views Narrative XR ANKLE LEFT G/E 3 VIEWS 05/31/2020 3:25 PM HISTORY: s/p bite with cellulitis, evaluate for foreign body Impression IMPRESSION: Soft tissue swelling. No radiopaque foreign body. No evidence of fracture. The ankle mortise appears congruent. MD Marcus TANG DO [facility] [place] [address] Pager: 06/01/2020 documented in this encounter H&P Notes Pam Blum PA-C - 05/31/2020 1:20 PM CDT [facility] Internal Medicine History and Physical Patient Name: Amie Scott Age: [age] year old Date of : 1960 Date of Admission:05/31/2020 Primary care provider: Kleber Ledesma Date of Service: 05/31/2020 Assessment and Plan: Amie Scott is a 60 year old female with a history of HTN, HLD, Asthma, COVID-19, recent cat bite who presents to the ED with left ankle pain, redness and swelling. Left Ankle Cellulitis - s/p presumed cat bite 05/28 who started on Augmentin now with progressive left ankle pain, swelling, erythema. Afebrile with normal wbc. 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 No signs of exacerbation. Has hx of allergies as well. CODE: Full Diet/IVF: regular, NS GI ppx: pepcid DVT ppx: SCD Patient discussed with Dr. Tiago Blum MS, PA-C Physician Medical Office Secretary Hospitalist Service Pager: [phone] Chief Complaint: Left Ankle Pain HPI: 60 year old female with a history of HTN, HLD, Asthma, COVID-19, recent cat bite who presents to theED with left ankle pain, redness and swelling. Patient reports she was lying in her bed on the evening of 05/28 and her cat was playing with her foot. She awoke later in the night with acute onset of pain with two puncture wounds to the lateral leftankle with bloody output. She had progressively worse pain, swelling and erythema and presented to an UC on 05/29 who felt maybe her bite was from a bat and referred her to the ED. Patient denies any bats in her home. Her cat is a house cat and no immunized. She was seen in the [facility] ED on 05/29 and started on Augmentin and Tramadol. She presented for follow up with her PCP today and noted spreading erythema, warmth and pain with ambulation despite taking her po antibiotics and she was referred to the ED. Past Medical History: Past Medical History: Diagnosis Date ??? Chest discomfort ??? High cholesterol ??? Hypertension ??? Moderate persistent asthma 2005 cold air trigger Past Surgical History: Past Surgical History: Procedure Laterality Date ??? CHOLECYSTECTOMY ??? COLONOSCOPY 12/31/2014 Dr. Urbano [facility] ??? COLONOSCOPY N/A 12/31/2014 Procedure: COLONOSCOPY; Surgeon: Adrianne Urbano MD; Location: [facility] ??? 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 ZZC NONSPECIFIC PROCEDURE laparoscopy by FOOD TASTER Social History: Social History Socioeconomic History ??? Marital status: Spouse name: Not on file ??? Number of children: Not on file ??? Years of education: Not on file ??? Highest education level: Not on file Occupational History ??? Not on file Social Needs ??? Financial resource strain: Not on file ??? Food insecurity Worry: Not on file Inability: Not on file ??? Transportation needs Medical: Not on file Non-medical: Not on file Tobacco Use ??? Smoking status: Former Smoker ??? Smokeless tobacco: Never Used ??? Tobacco comment: quit smoking at 21 yrs old. smoked 2 to 21/2 ppd Substance and Sexual Activity ??? Alcohol use: Yes Alcohol/week: 2.0 standard drinks Types: 1 Glasses of wine, 1 Shots of liquor per week Comment: socially ??? Drug use: No ??? Sexual activity: Yes Partners: Male Lifestyle ??? Physical activity Days per week: Not on file Minutes per session: Not on file ??? Stress: Not on file Relationships ??? Social connections Talks on phone: Not on file Gets together: Not on file Attends buddhist service: Not on file Active member of club or organization: Not on file Attends meetings of clubs or organizations: Not on file Relationship status: Not on file ??? Intimate partner violence Fear of current or ex partner: Not on file Emotionally abused: Not on file Physically abused: Not on file Forced sexual activity: Not on file Other Topics Concern ??? Parent/sibling w/ CABG, ME or angioplasty before 65F 55M? Yes ??? [...] Asked ??? Exercise No Comment: works at [employer]- lots of walking ??? Bike Helmet Not Asked ??? Seat Belt Yes ??? Self-Exams Not Asked Social History Narrative ??? Not on file Family History: Family History Problem Relation Age of Onset ??? Allergies Brother ??? C.A.D. Brother ??? Heart Disease Brother ??? Diabetes Brother ??? Aneurysm Brother ??? Myocardial Infarction Father ??? Coronary Artery Disease Father ??? Myocardial Infarction Brother ??? C.A.D. Brother ??? Myocardial Infarction Sister ??? Ovarian Cancer Sister ??? Other Cancer Sister ??? Breast Cancer Sister ??? Neurologic Disorder Sister MS ??? Macular Degeneration Mother ??? Colon Cancer Maternal Grandmother 70 Allergies: Allergies Allergen Reactions ??? No Known Drug Allergies Medications: Prior to Admission medications Medication Sig Last Dose Taking? Auth Provider amoxicillin-clavulanate (AUGMENTIN) 875-125 MG tablet Reported, Patient atenolol-chlorthalidone (TENORETIC) 50-25 MG tablet TAKE ONE TABLET BY MOUTH EVERY DAY Kleber Ledesma PA-C cetirizine (ZYRTEC) 10 MG tablet Take 1 tablet (10 mg) by mouth daily Dewey Arredondo PA-C citalopram (CELEXA) 20 MG tablet TAKE ONE TABLET BY MOUTH EVERY DAY Kleber Ledesma PA-C dicyclomine (BENTYL) 20 MG tablet Take 1 tablet (20 mg) by mouth 4 times daily as needed (abdominal cramping) Kleber Ledesma PA-C fluticasone (FLONASE) 50 MCG/ACT nasal spray Wakeman 1 spray into both nostrils daily Dewey Arredondo PA-C simvastatin (ZOCOR) 20 MG tablet TAKE ONE TABLET BY MOUTH AT BEDTIME Dewey Arredondo PA-C traMADol (ULTRAM) 50 MG tablet Reported, Patient Review of Systems: A complete ROS was performed and is negative other than what is stated in the HPI. Physical Exam: Blood pressure (!) 152/86, pulse 87, temperature 98.2 ??F (36.8 ??C), temperature source Temporal, resp. rate 16, weight 64.9 kg (143 lb), last menstrual period 02/22/2010, SpO2 100 %, not currently . General: Alert, interactive, NAD, lying in bed, pleasant and cooperative HEENT: AT/NC, sclera anicteric, PERRL Chest/Resp: clear to auscultation bilaterally, no crackles or wheezes Heart/CV: regular rate and rhythm, no murmur Abdomen/GI: Soft, nontender, nondistended. +BS. No rebound or guarding. Extremities/MSK: left lateral ankle with two puncture de luna, scabbed over with no drainage, Erythemaoutlined and extending to the left foot and up the left leg, warm to palpation, pain with flexion Neuro: Alert & oriented x 3 Labs: ROUTINE ICU LABS (Last four results) CMP Recent Labs Lab 05/31/20 1213 NA 138 POTASSIUM 3.5 CHLORIDE 105 CO2 31 ANIONGAP 2* GLC 103* BUN 14 CR 0.79 GFRESTIMATED 81 GFRESTBLACK >90 LETTY 8.9 Imaging/Procedures: none Associated attestation - Marcus Ordoñez DO - 05/31/2020 2:51 PM CDT Physician Attestation I, Marcus Ordoñez, saw and evaluated Amie Scott as part of a shared visit. I have reviewed and discussed with the advanced practice provider their history, physical and plan. I personally reviewed the vital signs, medications, labs, and imaging. My colbert history or physical exam findings: 60F with pmh of hypertension, hld, asthma, mood d/o presented with cat bite. Pt has 3 cats and all are indoor cats. Does not remember when her last tetanus shot was. Lives in a house with her fiance and daughter and works at the [employer].Denies hx of diabetes. Constitutional: Awake, alert, cooperative, no apparent distress. Eyes: Conjunctiva and pupils examined and normal. HEENT: Moist mucous membranes, normal dentition. Respiratory: Clear to auscultation bilaterally, no crackles or wheezing. Cardiovascular: Regular rate and rhythm, normal S1 and S2, and no murmur noted. GI: Soft, non-distended, non-tender, normal bowel sounds. Lymph/Hematologic: No anterior cervical or supraclavicular adenopathy. Skin: Erythema on L ankle to mid foot and mid calf, no purulence, +puncture site Musculoskeletal: No joint swelling Neurologic: Cranial nerves 2-12 intact, normal strength and sensation. Psychiatric: Alert, oriented to person, place and time, no obvious anxiety or depression. Colbert management decisions made by me: Continue IV unasyn. Blood cultures pending. Prn pain control. Check CRP, ESR, and ankle x-ray. Marcus Ordoñez Date of Service (when I saw the patient): 05/31/20 documented in this encounter ED Notes Luna Morales RN - 05/31/2020 2:25 PM CDT [facility] ED Nurse Handoff Report Amie Scott is a 60 year old female ED Chief complaint: Wound Check . ED Diagnosis: Final diagnoses: Cellulitis of left lower extremity Cat bite, initial encounter Allergies: Allergies Allergen Reactions ??? No Known Drug Allergies Code Status: Full Code Activity level - Baseline/Home: Independent. Activity Level - Current: Independent. Lift room needed: No. Bariatric: No Senior Pastor Needed: No Isolation: covid pending. Infection: Not Applicable Other . Vital Signs: Vitals: 05/31/20 1130 BP: (!) 152/86 Pulse: 87 Resp: 16 Temp: 98.2 ??F (36.8 ??C) TempSrc: Temporal SpO2: 100% Weight: 64.9 kg (143 lb) Cardiac Rhythm: , Pain level: Patient confused: No. Patient Falls Risk: No. Elimination Status: Has voided Patient Report - Initial Complaint: Patient seen at [facility] ED on Wednesday for a cat bite to left ankle. Started on Augmentin. Since then redness and swelling increasing. Focused Assessment: 12:00 Skin Color/Condition Skin - Skin Inspection: Focused inspection (identify areas inspected) Skin Integrity/Characteristics: other (see comments) Skin Comment: left foot and ankle with redness andwarmth, swelling after alleged cat bit 2 days ago, on augmentin for 2 days and not better. Pressure Injury Present: no Other flowsheet entries - Other (see comments): Patient seen at [facility] ED on Wednesday for a catbite to left ankle. Started on Augmentin. Since then redness and swelling increasing. Focused inspection of bony prominences: Ankle, left MAYRA Tests Performed: labs, blood cultures x 2, covid swab. Abnormal Results: Labs Ordered and Resulted from Time of ED Arrival Up to the Time of Departure from the ED BASIC METABOLIC PANEL - Abnormal; Notable for the following components: Result Value Anion Gap 2 (*) Glucose 103 (*) All other components within normal limits LACTIC ACID WHOLE BLOOD CBC WITH PLATELETS DIFFERENTIAL SARS-COV-2 (COVID-19) VIRUS RT-PCR BLOOD CULTURE BLOOD CULTURE No orders to display . Treatments provided: tetanus, antibiotics Family Comments: none OBS brochure/video discussed/provided to patient: No ED Medications: Medications ampicillin-sulbactam (UNASYN) 3 g vial to attach to NS 100 mL bag (3 g Intravenous New Bag 05/31/20 1342) Tdap (eunpplg-xjdyptousv-djhuk pertussis) (ADACEL) injection 0.5 mL (0.5 mLs Intramuscular Given 05/31/20 1342) Drips infusing: No For the majority of the shift, the patient's behavior Green. Interventions performed were none. Sepsis treatment initiated: No Patient tested for COVID 19 prior to admission: YES, pending. ED Nurse Name/Phone Number: Bernie Cowart RN, 2:26 PM RECEIVING UNIT ED HANDOFF REVIEW Above ED Nurse Handoff Report was reviewed: Yes Reviewed by: Luna Morales RN on May 31, 2020 at 2:32 PM Ann Wells RN - 05/31/2020 11:29 AM CDT Patient seen at [facility] ED on Wednesday for a cat bite to left ankle. Started on Augmentin. [place] redness and swelling increasing. ABCs intact. Alert and oriented x 4. Marry Payton PA-C - 05/31/2020 11:17 AM CDT History Chief Complaint: Wound Check HPI Amie Scott is a 60 year old female who presents with wound check. The patient states that she may have been bitten by her cat 3 nights ago on her left foot. She developed pain and redness to the area. The patient went to urgent care and was prescribed tramadol as well as Augmentin. She has been taking the Augmentin but states that the redness and pain is getting worse. The redness has spread to her left lower leg today and she was told to come into the ED for evaluation. Review of Systems Musculoskeletal: Pain to left foot Skin: Positive for wound (bite on left foot). Redness to left foot and left lower leg All other systems reviewed and are negative. 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 Heart Disease Diabetes Aneurysm Myocardial Infarction Social History: The patient presents with her . The patient is . Physical Exam Patient Vitals for the past 24 hrs: BP Temp Temp src Pulse Resp SpO2 Weight 05/31/20 1130 (!) 152/86 98.2 ??F (36.8 ??C) Temporal 87 16 100 % 64.9 kg (143 lb) Physical Exam General: No acute distress. Head: Scalp is atraumatic. Eyes: Normal conjunctiva. ENT: Ears: The external ears are normal. Nose: The external nose is normal. Throat: The oropharynx is normal. Mucus membranes are moist. Neck: Normal range of motion. CV: Normal rate. No murmur. 2+ radial pulses Resp: Breath sounds are clear bilaterally. Non-labored, no retractions or accessory muscle use. MS: Normal range of motion. No acute deformities. Skin: Warm and dry. No rash. 2 pinpoint wounds to the left lower leg approximately 3cm apart with surrounding erythema extending to the mid lower leg and mid foot. No ankle joint effusion. Neuro: Alert. Strength and sensation grossly intact. 5/5 strenght with flexion/extension of the ankle. Psych: Awake. Alert. Appropriate interactions. Emergency Department Course Laboratory: Blood Culture x2: Pending BMP: Glucose 103 (H), anion gap 2 (L), o/w WNL (Creatinine: 0.79) Lactic Acid whole blood (1213): 0.7 CBC: WBC 8.9, HGB 13.1, PLT 298, o/w WNL Asymptomatic COVID-19 Virus (Coronavirus) by PCR Nasopharyngeal swab: negative CRP inflammation: 46.3 (H) Erythrocyte sedimentation rate auto: pending Emergency Department Course: Reviewed: I reviewed the patient's nursing notes, vitals, past medical records, Care Everywhere. Assessments: 1218 I performed an exam of the patient as documented above. Consults: 1320 I spoke with Pam SANTACRUZ for Dr. Ordoñez of the hospitalist service from [facility] regarding patient's presentation, findings, and plan of care. Interventions: 1342 Tdap 0.5 mL IM 1342 Unasyn 3 g IV Disposition: Admitted. Impression & Plan Covid-19 Amie Scott was evaluated during a global COVID-19 pandemic, which necessitated consideration that the patient might be at risk for infection with the SARS-CoV-2 virus that causes COVID-19. Applicable protocols for evaluation were followed during the patient's care. COVID-19 was considered as part of the patient's evaluation. The plan for testing is: a test was obtained during this visit. Medical Decision Making: Amie Scott is a 60 year old female who presents for evaluation of skin redness. Patient was started on Augmentin 2 days ago, total of 4 doses after suspected cat bite. Exam consistent with cat bite. The history, physical exam and supporting data are consistent with cellulitis. Given she has failed outpatient treatment, she will be admitted for IV antibiotics. Area of redness was outlined. Tetanus updated. There is no leukocytosis or lactic acidosis. Patient was started on Unasyn will be admitted for further IV antibiotics. Diagnosis: ICD-10-CM 1. Cellulitis of left lower extremity L03.116 Blood culture CBC with platelets differential CBC with platelets differential CANCELED: CBC + differential 2. Cat bite, initial encounter W55.01XA Scribe Disclosure: I, Sravan Light, am serving as a scribe at 12:18 PM on 05/31/2020 to document services personally performed by Marry Payton PA-C based on my observations and the provider's statements to me. Marry Payton PA-C 05/31/20 1713 documented in this encounter Miscellaneous Notes Plan of Care - Natty Valladares RN - 06/02/2020 11:38 AM CDT Pt A&O. VSS. LS clear on RA, denies SOB. Active BS, last BM 06/01. Voiding in BR w/o difficulty. On reg diet. C/O 2/10 leg pain, taking IBU w/relief. Discharging today. Discharge instructions discussed w/pt. Questions answered. No further needs. Encouraged pt to elevate leg. Pt verb understanding. Meds given to pt: doxycycline, metronidazole. Work note given to pt. Pt discharging w/spouse to home. BP (!) 131/92 (BP Location: Left arm) Pulse 61 Temp 98 ??F (36.7 ??C) (Oral) Resp 16 Wt 64.7kg (142 lb 11.2 oz) LMP 02/22/2010 (LMP Unknown) SpO2 97% BMI 26.10 kg/m?? Plan of Care - Junie Lawson RN - 06/02/2020 5:44 AM CDT Afberile. VSS. Denies leg pain, C/O occasional headache. Declined pain medication. LLE elevated on pillows. Redness improved, swelling improved, scabs remain left lateral ankle, no drainage. Toleratingregular diet. Voiding. Receiving Unasyn. Appeared to sleep comfortably between cares. Plan of Care - Karley Arteaga RN - 06/01/2020 7:28 PM CDT VSS, afebrile. Tolerating regular diet. Voiding. Redness on left foot continues to recede. Swelling decreased. Skin warm to touch. Scabs intact. No drainage. Denies pain. Acetaminophen once fr headacheand effective. Up independently in room. Plan of Care - Junie Lawson RN - 06/01/2020 6:08 AM CDT Afebrile. VSS. Pain in LLE rated 2/10 and described as comfortable. Declined pain meds. Elevated on pillows. Redness receeding from markings. Scabs on top of foot and left lateral ankle, no drainage.Hot to touch. Tolerating regular diet. Voiding. Receiving Unasyn. Appeared to sleep comfortably between cares. Plan of Care - Ami Harding RN - 05/31/2020 5:01 PM CDT VSS, afebrile. Pain well controlled with PRN meds and ice. Leg elevated on pillows, blanchable redness outlined, mild swelling. Puncture sites are scabbed over, no drainage. Tolerating a regular diet. Voiding. Up with SBA. Stable, will continue to monitor. Plan: If scabs open and drain, there is an order for a culture and gram tricia. Pharmacy-Admission Medication History - Mariam Howard - 05/31/2020 2:07 PM CDT Admission medication history interview status for this patient is complete. See [facility] admission navigator for allergy information, prior to admission medications and immunization status. Medication history interview done, indicate source(s): Patient Medication history resources (including written lists, pill bottles, clinic record): Care Everywhereand [facility] Pharmacy: [facility] in [place] Changes made to [facility] medication list: Added: None Deleted: Cetirizine, Flonase, simvastatin Changed: Augment (no sig) --> Augmentin two times daily Tramadol (no sig) --> Tramadol 50mg tab every 8 hours as needed Actions taken by pharmacist (provider contacted, etc):None Additional medication history information:None Medication reconciliation/reorder completed by provider prior to medication history? N (Y/N) Prior to Admission medications Medication Sig Last Dose Taking? Auth Provider amoxicillin-clavulanate (AUGMENTIN) 875-125 MG tablet Take 1 tablet by mouth 2 times daily 1at AM Yes Reported, Patient atenolol-chlorthalidone (TENORETIC) 50-25 MG tablet TAKE ONE TABLET BY MOUTH EVERY DAY 05/30/2020 at Unknown time Yes Kleber Ledesma PA-C citalopram (CELEXA) 20 MG tablet TAKE ONE TABLET BY MOUTH EVERY DAY 05/30/2020 at Unknown time Yes Kleber Ledesma PA-C dicyclomine (BENTYL) 20 MG tablet Take 1 tablet (20 mg) by mouth 4 times daily as needed (abdominal cramping) Past Month at Unknown time Yes Kleber Ledesma PA-C traMADol (ULTRAM) 50 MG tablet Take 50 mg by mouth every 8 hours as needed 05/31/2020 at AM Yes Reported, Patient Associated attestation - Allen Prado RPH - 05/31/2020 2:25 PM CDT Medication reconciliation completed by pharmacy scheduler. documented in this encounter Plan of Treatment Not on filedocumented as of this encounter Procedures Procedure Name Priority Date/Time Associated Comments Diagnosis CRP INFLAMMATION Routine 06/02/2020 7:11 AM Cellulitis of left Results for this CDT lower extremity procedure ar e in the results section. BASIC METABOLIC PANEL Routine 06/02/2020 7:11 AM Cellulitis of left Results for this CDT lower extremity procedure ar e in the results section. CBC WITH PLATELETS Routine 06/02/2020 7:11 AM Cellulitis of le ft Results for this CDT lower extremity procedure ar e in the results section. XR ANKLE LEFT G/E 3 Routine 05/31/2020 3:25 PM Re sults for this VIEWS CDT procedure are i n the results section. SARS-COV-2 (COVID-19) STAT 05/31/2020 1:55 PM Cellulitis of left Results for this VIRUS RT-PCR CDT lower extremity procedure ar e in the results section. BLOOD CULTURE STAT 05/31/2020 1:16 PM Cellulitis of left Re sults for this CDT lower extremity procedure ar e in the results section. CBC WITH PLATELETS & Routine 05/31/2020 12:13 Cellulitis of le ft Results for this DIFFERENTIAL PM CDT lower extremity procedure ar e in the results section. MAGNESIUM Routine 05/31/2020 12:13 Cellulitis of left Resul ts for this PM CDT lower extremity procedure ar e in the results section. LACTIC ACID WHOLE Add-On 05/31/2020 12:13 Result s for this BLOOD PM CDT procedure are i n the results section. ERYTHROCYTE Routine 05/31/2020 12:13 Cellulitis of left Resul ts for this SEDIMENTATION RATE PM CDT lower extremity proced ure are in AUTO the results section. CRP INFLAMMATION Routine 05/31/2020 12:13 Cellulitis of left R esults for this PM CDT lower extremity procedure ar e in the results section. BLOOD CULTURE STAT 05/31/2020 12:13 Cellulitis of left Resu lts for this PM CDT lower extremity procedure ar e in the results section. BASIC METABOLIC PANEL Add-On 05/31/2020 12:13 Re sults for this PM CDT procedure are i n the results section. documented in this encounter Results (ABNORMAL) CRP inflammation (06/02/2020 7:11 AM CDT) [facility] Method Time Signature CRP Inflammation 11.4 (H) 0.0 - 8.0 06/02/2020 [facility] mg/L 7:50 AM CDT [facility] Specimen Anatomical Collection Method Collection Time Receive d Time (Source) Location / / Volume Laterality Blood 06/02/2020 7:11 AM 7:12 CDT AM CDT Marcus Ordoñez DO LAB - BLOOD ORDERABLES Performing Organization Address City/State/ZIP Code Phon e Number M [facility] [address] [place] [address] [address] [facility] [address], [place] [address], [place] [phone] (ABNORMAL) Basic metabolic panel (06/02/2020 7:11 AM CDT) athologist Signature Sodium 142 133 - 144 06/02/2020 [place] mmol/L 7:41 AM [facility] Potassium 3.8 3.4 - 5.3 06/02/2020 [place] mmol/L 7:41 AM [facility] Chloride 112 (H) 94 - 109 06/02/2020 [place] mmol/L 7:41 AM [facility] Carbon Dioxide 28 20 - 32 06/02/2020 [place] mmol/L 7:50 AM [facility] Anion Gap 2 (L) 3 - 14 06/02/2020 [place] mmol/L 7:50 AM [facility] Glucose 90 70 - 99 06/02/2020 [place] mg/dL 7:50 AM [facility] Urea Nitrogen 14 7 - 30 06/02/2020 [place] mg/dL 7:50 AM [facility] Creatinine 0.82 0.52 - 06/02/2020 [place] 1.04 mg/dL 7:50 AM [facility] GFR Estimate 77 >60 06/02/2020 [place] mL/min/{1. 7:50 AM [facility] 73_m2} [facility] Comment: Non GFR Calc Starting 01/25/2018, serum creatinine ba sed estimated GFR (eGFR) will be calculated using the Chronic Kidney Dise ase Epidemiology Collaboration (CKD-EPI) equation. GFR Estimate If 90 >60 mL/min/{1.73_m2} 06/02/2020 7: 50 AM [facility] Comment: GFR Calc Starting 01/25/2018, serum creatinine ba sed estimated GFR (eGFR) will be calculated using the Chronic Kidney Dise ase Epidemiology Collaboration (CKD-EPI) equation. Calcium 8.4 (L) 8.5 - 10.1 mg/dL 06/02/2020 7:50 AM [facility] Specimen Anatomical Collection Method Collection Time Receive d Time (Source) Location / / Volume Laterality Blood 06/02/2020 7:11 AM 7:12 CDT AM CDT Marcus Ordoñez DO LAB - BLOOD ORDERABLES Performing Organization Address City/State/ZIP Code Phon e Number [facility] [address] [place] [address] [facility] [address] [place], [place] [address], [facility] [phone] [address], [facility] [phone] HOSPITAL (ABNORMAL) CBC with platelets (06/02/2020 7:11 AM CDT) Analysis Performed At Patho logist Time Signature WBC 4.7 4.0 - 11.0 06/02/2020 [facility] 10e9/L 7:34 AM [facility] RBC Count 4.11 3.8 - 5.2 06/02/2020 [facility] 10e12/L 7:34 AM [facility] Hemoglobin 11.2 (L) 11.7 - 06/02/2020 [facility] 15.7 g/dL 7:34 AM [facility] Hematocrit 36.3 35.0 - 06/02/2020 [facility] 47.0 % 7:34 AM [facility] MCV 88 78 - 100 06/02/2020 [facility] fl 7:34 AM [facility] MCH 27.3 26.5 - 06/02/2020 [facility] 33.0 pg 7:34 AM [facility] MCHC 30.9 (L) 31.5 - 06/02/2020 [facility] 36.5 g/dL 7:34 AM [facility] RDW 12.7 10.0 - 06/02/2020 [facility] 15.0 % 7:34 AM [facility] Platelet Count 260 150 - 450 06/02/2020 [place] 10e9/L 7:34 AM CDT [facility] Specimen Anatomical Collection Method Collection Time Receive d Time (Source) Location / / Volume Laterality Blood 06/02/2020 7:11 AM 7:12 CDT AM CDT Marcus Ordoñez DO LAB - BLOOD ORDERABLES Performing Organization Address City/State/ZIP Code Phon e Number M [facility] [address] [place], [place] [address] [facility] [address] [place], [place] [address] [place] [address] XR Ankle Left G/E 3 Views (05/31/2020 3:25 PM CDT) Anatomical Region Laterality Modality Leg, Ankle, Foot Left Digital Radiography Specimen (Source) Anatomical Location Collection Method / Collectio n Time Received Time / Laterality Volume Impressions 05/31/2020 3:28 PM CDT IMPRESSION: Soft tissue swelling. No radiopaque foreign body. No evidence of fracture. The ankle mortise appears congruent. MARCUS SIMENTAL MD Narrative 05/31/2020 3:28 PM CDT XR ANKLE LEFT G/E 3 VIEWS 05/31/2020 3:25 PM HISTORY: s/p bite with cellulitis, evalu ate for foreign body Procedure Note Marcus Simental MD - 05/31/2020Formatt ing of this note might be different from the original. XR ANKLE LEFT G/E 3 VIEWS 05/31/2020 3:25 PM HISTORY: s/p bite with cellulitis, evalu ate for foreign body IMPRESSION: Soft tissue swelling. No rad iopaque foreign body. No evidence of fracture. The ankle mortise appears congruent. MARCUS SIMENTAL MD Pam Blum PA-C [facility] ORDER PB Asymptomatic SARS-CoV-2 COVID-19 Virus (Coronavirus) by PCR (05/31/2020 1:55 PM CDT) [facility] Method Time Signature SARS-CoV-2 Nasopharyngeal 05/31/2020 [place] Virus 1:55 PM CDT [facility] Source SARS-CoV-2 NEGATIVE 05/31/2020 [place] PCR Result 2:31 PM [facility] Comment: SARS-CoV2 (COVID-19) RNA not de tected, presumed negative. SARS-CoV-2 PCR Comment (Note) 05/31/2020 2:31 P M [facility] Comment: Testing was performed using the laith SA RS-CoV-2 & Influenza A/B Assay on the laith Estefani System. This test should be ordered for the dete ction of SARS-COV-2 in individuals who meet SARS-CoV-2 clinical and/or epidemi ological criteria. Test performance is unknown in asymptomatic patients. This test is for in vitro diagnostic use under the FDA EUA for laboratories certified under CLIA to perform moderate and/or high complexity testing. This test has not been FDA cleared or approve d. A negative test does not rule out the pr esence of PCR inhibitors in the specimen or target RNA in concentration below the limit of detection for the assay. The possibility of a false negati ve should be considered if the patient's recent exposure or clinical pr esentation suggests COVID-19. [facility] are certi fied under the Clinical Laboratory Improvement Amendments of 1988 (CLIA-88) as qualified to perform moderate and/or high complexity laboratory testin g. Specimen (Source) Anatomical Collection Method Collection Time Re ceived Time Location / / Volume Laterality Specimen from 05/31/2020 1:55 05/31/2020 nasopharyngeal PM CDT 2:06 PM CDT structure (specimen) Marry Connelly PA-C LAB - MICRO GENERAL ORDERAB LES Performing Organization Address City/State/ZIP Code Phon e Number [facility] [address] [place], [place] [address] [facility] [address] [place] [address] [facility] [phone] Blood culture (05/31/2020 1:16 PM CDT) [facility] gist Method Time Signature Specimen Blood INFECTIOUS Description [facility], [facility] Special Left Arm 05/31/2020 [place] Requests 1:17 PM [facility] Culture Micro No growth 06/06/2020 INFECTIOUS 4:22 AM CDT [facility], [facility] Specimen Anatomical Collection Method Collection Time Receive d Time (Source) Location / / Volume Laterality Blood specimen 05/31/2020 1:16 PM 021 1:17 (specimen) CDT PM CDT Marry Connelly PA-C LAB - MICRO GENERAL ORDERAB LES Performing Organization Address City/[facility]/ZIP Code Phon e Number INFECTIOUS DISEASES [address] [place] [address] DIAGNOSTIC LABORATORY, [facility] [address] [place], [place] [address], [facility] [phone] Magnesium (05/31/2020 12:13 PM CDT) athologist Signature Magnesium 2.2 1.6 - 2.3 05/31/2020 [facility] mg/dL 3:21 PM CDT HOSPITAL Specimen Anatomical Collection Method Collection Time Receive d Time (Source) Location / / Volume Laterality 05/31/2020 12:13 05/31/2020 PM CDT 12:40 PM CDT Marry Connelly PA-C LAB - BLOOD ORDERABLES Performing Organization Address [facility] Phon e Number [facility] [address] [place], [place] [address] [facility] [address] [place], [place] [address], [facility] [phone] Erythrocyte sedimentation rate auto (05/31/2020 12:13 PM CDT) P athologist Signature Sed Rate 14 0 - 30 mm/h 05/31/2020 [facility] 3:13 PM CDT HOSPITAL Specimen Anatomical Collection Method Collection Time Receive d Time (Source) Location / / Volume Laterality 05/31/2020 12:13 05/31/2020 PM CDT 12:40 PM CDT Marry Connelly PA-C LAB - BLOOD ORDERABLES Performing Organization Address [facility]/ZIP [facility] Phon e Number M [facility] [address] [place], [place] [address] [facility] [address] [place], [place] [address] [facility] [phone] (ABNORMAL) CRP inflammation (05/31/2020 12:13 PM CDT) [facility] Method Time Signature CRP Inflammation 46.3 (H) 0.0 - 8.0 05/31/2020 [facility] mg/L 2:41 PM [facility] Specimen Anatomical Collection Method Collection Time Receive d Time (Source) Location / / Volume Laterality 05/31/2020 12:13 05/31/2020 PM CDT 12:40 PM CDT Marry Connelly PA-C LAB - BLOOD ORDERABLES Performing Organization Address City/State/ZIP Code Phon e Number M [place] [address] [place], [place] [address] [facility] [address] [place], [place] [address] [facility] [phone] CBC with platelets differential (05/31/2020 12:13 PM CDT) [facility] Method Time Signature WBC 8.9 4.0 - 05/31/2020 [facility] 11.0 1:26 PM [facility] 10e9/L [facility] RBC Count 4.69 3.8 - 5.2 05/31/2020 [facility] 10e12/L 1:26 PM [facility] Hemoglobin 13.1 11.7 - 05/31/2020 [facility] 15.7 g/dL 1:26 PM [facility] Hematocrit 40.3 35.0 - 05/31/2020 [facility] 47.0 % 1:26 PM [facility] MCV 86 78 - 100 05/31/2020 [facility] fl 1:26 PM [facility] MCH 27.9 26.5 - 05/31/2020 [facility] 33.0 pg 1:26 PM [facility] MCHC 32.5 31.5 - 05/31/2020 [facility] 36.5 g/dL 1:26 PM [facility] RDW 13.1 10.0 - 05/31/2020 [facility] 15.0 % 1:26 PM [facility] Platelet Count 298 150 - 450 05/31/2020 [facility] 10e9/L 1:26 PM [facility] Diff Method Automated 05/31/2020 [facility] Method 1:26 PM [facility] % Neutrophils 65.7 % 05/31/2020 [facility] 1:26 PM [facility] % Lymphocytes 21.4 % 05/31/2020 [facility] 1:26 PM [facility] % Monocytes 10.5 % 05/31/2020 [facility] 1:26 PM [facility] % Eosinophils 1.4 % 05/31/2020 [facility] 1:26 PM [facility] % Basophils 0.5 % 05/31/2020 [facility] 1:26 PM [facility] % Immature 0.5 % 05/31/2020 [facility] Granulocytes 1:26 PM [facility] Nucleated RBCs 0 0 /100 05/31/2020 [facility] 1:26 PM [facility] Absolute 5.8 1.6 - 8.3 05/31/2020 [facility] Neutrophil 10e9/L 1:26 PM [facility] Absolute 1.9 0.8 - 5.3 05/31/2020 [facility] Lymphocytes 10e9/L 1:26 PM [facility] Absolute 0.9 0.0 - 1.3 05/31/2020 [facility] Monocytes 10e9/L 1:26 PM [facility] Absolute 0.1 0.0 - 0.7 05/31/2020 [facility] Eosinophils 10e9/L 1:26 PM [facility] Absolute 0.0 0.0 - 0.2 05/31[facility]2020 [facility] Bas[facility] 10e9/L 1:26 PM [facility] Abs Immature 0.0 0 - 0.4 05/31/2020 [place] Granulocytes 10e9/L 1:26 PM [facility] Absolute 0.0 05/31/2020 [place] Nucleated RBC 1:26 PM [facility] Specimen Anatomical Collection Method Collection Time Receive d Time (Source) Location / / Volume Laterality 05/31/2020 12:13 05/31/2020 PM CDT 12:40 PM CDT Marry Connelly PA-C LAB - BLOOD ORDERABLES Performing Organization Address City/State/ZIP Code Phon e Number M [facility] [address] [place] [address] [facility] [address] [place], [place] [address], [facility] [phone] Blood culture (05/31/2020 12:13 PM CDT) [facility] gist Method Time Signature Specimen Blood INFECTIOUS Description Right Arm [facility], [facility] Culture Micro No growth 06/06/2020 [facility] 4:22 AM CDT [facility], [facility] Specimen Anatomical Collection Method Collection Time Receive d Time (Source) Location / / Volume Laterality Blood specimen 05/31/2020 12:13 1:23 (specimen) PM CDT PM CDT Comment: Right Arm Marry Connelly PA-C LAB - MICRO GENERAL ORDERAB LES Performing Organization Address City/State/ZIP Code Phon e Number INFECTIOUS [facility] [address] [facility] [place] [address] LABORATORY, [facility] Lactic acid whole blood (05/31/2020 12:13 PM CDT) athologist [facility] Lactic Acid 0.7 0.7 - 2.0 05/31/2020 [place] mmol/L 12:40 PM [facility] Specimen Anatomical Collection Method Collection Time Receive d Time (Source) Location / / Volume Laterality Blood 05/31/2020 12:13 05/31/2020 PM CDT 12:37 PM CDT Marry Connelly PA-C LAB - BLOOD ORDERABLES Performing Organization Address City/[facility]/ZIP [facility] Phon e Number [facility] [address] [place], [place] [address] [facility] [address], [place] [address] [phone] (ABNORMAL) Basic metabolic panel (05/31/2020 12:13 PM CDT) athologist Signature Sodium 138 133 - 144 05/31/2020 [place] mmol/L 12:55 PM [facility] Potassium 3.5 3.4 - 5.3 05/31/2020 [place] mmol/L 12:55 PM [facility] Chloride 105 94 - 109 05/31/2020 [place] mmol/L 12:55 PM [facility] Carbon Dioxide 31 20 - 32 05/31/2020 [place] mmol/L 1:01 PM [facility] Anion Gap 2 (L) 3 - 14 05/31/2020 [place] mmol/L 1:01 [facility] Glucose 103 (H) 70 - 99 05/31/2020 [place] mg/dL 1:01 PM [facility] Urea Nitrogen 14 7 - 30 05/31/2020 [place] mg/dL 1:01 [facility] Creatinine 0.79 0.52 - 05/31/2020 [place] 1.04 mg/dL 1:01 [facility] GFR Estimate 81 >60 05/31/2020 [place] mL/min/{1. 1:01 PM [facility] [id number]} HOSPITAL Comment: Non GFR Calc Starting 01/25/2018, serum creatinine ba sed estimated GFR (eGFR) will be calculated using the Chronic Kidney Dise [facility] Epidemiology Collaboration (CKD-EPI) equation. GFR Estimate If >90 >60 mL/min/{1.73_m2} 05/31/2020 1: 01 PM [facility] Comment: GFR Calc Starting 01/25/2018, serum creatinine ba sed estimated GFR (eGFR) will be calculated using the Chronic Kidney Dise [facility] Epidemiology Collaboration (CKD-EPI) equation. Calcium 8.9 8.5 - 10.1 mg/dL 05/31/2020 1:01 [facility] Specimen Anatomical Collection Method Collection Time Receive d Time (Source) Location / / Volume Laterality Blood 05/31/2020 12:13 05/31/2020 PM CDT 12:40 PM CDT Marry Connelly PA-C LAB - BLOOD ORDERABLES Performing Organization Address City/State/ZIP Code Phon e Number M [place] [address] [place], [place] [address] [facility] [address], [place] [address] [phone] documented in this encounter Visit Diagnoses Diagnosis Cellulitis of left lower extremity Cellulitis and abscess of leg, except fo ot Cat bite, initial encounter Cellulitis of left lower extremity Cellulitis and abscess of leg, except fo ot Cat bite, initial encounter documented in this encounter Admitting Diagnoses Diagnosis Cat bite, initial encounter documented in this encounter Administered Medications Inactive Administered Medications - up to 3 most recent administrations Medication Order MAR Action Action Date Dose Rate Site acetaminophen (TYLENOL) tablet Given 06/01/2020 5:38 PM CDT 1,00 0 mg 1,000 mg 1,000 mg, Oral, EVERY 8 HOURS, First dose on Wed05/31/20 at 1600, Maximum acetaminophen dose from all sources = 75 mg/kg/day not to exceed 4 gram Given 05/31/2020 3:55 PM CDT 1,000 mg ampicillin-sulbactam (UNASYN) 3 g vial to New Bag 05/31/2020 1:42 PM CDT 3 g attach to NS 100 mL bag STAT, 3 g, Intravenous, ONCE, On Wed05/31/20 at 1250, For 1 dose, Indications: cat bite ampicillin-sulbactam (UNASYN) 3 g vial to New Bag 06/02/2020 8:11 AM CDT 3 g attach to NS 100 mL bag Routine, 3 g, Intravenous, EVERY 6 HOURS, First dose on Wed05/31/20 at 2000, Indications: Skin and Soft Tissue Infection New Bag 06/02/2020 2:24 AM CDT 3 g New Bag 06/01/2020 8:30 PM CDT 3 g atenolol (TENORMIN) tablet 50 mg Given 06/02/2020 8:13 AM CDT 50 mg 50 mg, Oral, DAILY, First dose on Wed06/01/20 at 0800, Hold for sbp<120, HR<60 Given 06/01/2020 9:00 AM CDT 50 mg citalopram (celeXA) tablet 20 mg Given 06/02/2020 8:13 AM CDT 20 mg 20 mg, Oral, DAILY, First dose on Wed05/31/20 at 1600 Given 06/01/2020 9:00 AM CDT 20 mg Given 05/31/2020 3:57 PM CDT 20 mg famotidine (PEPCID) tablet 20 mg Given 06/02/2020 8:13 AM CDT 20 mg 20 mg, Oral, 2 TIMES DAILY, First dose on Wed05/31/20 at 2000 Given 06/01/2020 8:31 PM CDT 20 mg Given 06/01/2020 9:00 AM CDT 20 mg ibuprofen (ADVIL/MOTRIN) tablet 600 mg Given 06/02/2020 8:13 AM CDT 600 mg 600 mg, Oral, EVERY 6 HOURS PRN, other, mild pain, Starting on Wed05/31/20 at 1506, Alternate acetaminophen (if ordered) with ibuprofen Give with food. Given 05/31/2020 7:57 PM CDT 600 mg naloxone (NARCAN) injection 0.2 mg 0.2 mg, Intravenous, EVERY 2 MIN PRN, op ioid reversal, Starting on Wed05/31/20 at 1532, Administer intravenous route when available and notify provider when administered. For unintended sedation or respiratory depression if all of the below criteria are met: ~ respiratory rate LES S than or EQUAL to 8. ~SaO2 less than 92% and or/end-tidal CO2 is greater than 50. ~ the patient is receiving an opioid, has unintended sedations assessed as RASS (-3), and is cur rently not on mechanical ventilation. RASS scale moderate (-3) is movement or eye opening to voice but no eye contact. Patient Monitoring Once the patient has demonstrated a response to the naloxone, continue to monitor respiratory rate, depth, oxygen saturation and end-tidal CO2 (if available) every 15 mi nutes x 2, then every 30 minutes x 2, then every 1 hour x 1 after each naloxone dose. Consider tr ansfer to ICU if patient respiratory parameters have not improved after 4 nalox one doses. For ordered IV doses 0.1-2mg give IVP. Give each 0.4mg over 15 seconds in emergency situations. For non-emergent situations further dilu te in 9mL of NS to facilitate titration of response. naloxone (NARCAN) injection 0.2 mg 0.2 mg, Intramuscular, EVERY 2 MIN PRN, opioid reversal, Starting on Wed05/31/20 at 1532, Administer intramuscular if an int ravenous route is not available and notify provider when administered. For unintend ed sedation or respiratory depression if all of the below criteria are met: ~ respiratory rate LESS than or EQUAL to 8. ~SaO2 less than 92% and or/end-tidal CO2 is greater th an 50. ~ the patient is receiving an opioid, has unintended sedations assessed as RASS (-3), and is currently not on mechanical ventilation. RASS scale moderate (-3) is movement or eye opening to voice but no eye contact. Patient Monitoring Once the patient has demonstrated a response to the naloxone, continue to m onitor respiratory rate, depth, oxygen saturation and end-tidal CO2 (if availab le) every 15 minutes x 2, then every 30 minutes x 2, then every 1 hour x 1 after each naloxone dose. Consider transfer to ICU if patient respiratory parameters have not improved after 4 naloxone doses. For ordered IV doses 0.1-2mg give IVP. Give each 0.4mg over 15 seconds in emergency situations. For non -emergent situations further dilute in 9mL of NS to facilitate titration of response. naloxone (NARCAN) injection 0.4 mg 0.4 mg, Intravenous, EVERY 2 MIN PRN, op ioid reversal, Starting on Wed05/31/20 at 1532, Administer intravenous route when available and notify provider when administered. For unintended sedation or respiratory depression if all of the below criteria are met: ~ respiratory rate LES S than or EQUAL to 8. ~ SaO2 less than 92% and or/end-tidal CO2 is greater than 50. ~ the patient is receiving an opioid, has unintended sedation assessed as RASS (-4 ) or (-5) and patient is currently not on mechanical ventilation. RASS scale (-4) is deep sedation with no response to voice but movement or eye opening to physical stimulation. R ASS scale (-5) is unarousable. Patient Monitoring Once the patient has demonstrated a response to the naloxone, continue to monitor respiratory rate, depth, oxygen saturation and end-tidal CO2 (if available) every 15 mi nutes x 2, then every 30 minutes x 2, then every 1 hour x 1 after each naloxone dose. Consider tr ansfer to ICU if patient respiratory parameters have not improved after 4 nalox one doses. For ordered IV doses 0.1-2mg give IVP. Give each 0.4mg over 15 seconds in emergency situations. For non-emergent situations further dilu te in 9mL of NS to facilitate titration of response. naloxone (NARCAN) injection 0.4 mg 0.4 mg, Intramuscular, EVERY 2 MIN PRN, opioid reversal, Starting on Wed05/31/20 at 1532, Administer intramuscular if an int ravenous route is not available and notify provider when administered. For unintend ed sedation or respiratory depression if all of the below criteria are met: ~ res piratory rate LESS than or EQUAL to 8. ~ SaO2 less than 92% and or/end-tidal CO2 is greater dre n 50. ~ the patient is receiving an opioid, has unintended sedation assessed as RASS (-4) or (-5) and patient is currently not on mechanical ventilation. RA SS scale (-4) is deep sedation with no response to voice but movement or eye opening to physical stimulation. RASS scale (-5) is unarousa ble. Patient Monitoring Once the patient has demonstrated a response to the nalox one, continue to monitor respiratory rate, depth, oxygen saturation and end-tidal CO2 (if availab le) every 15 minutes x 2, then every 30 minutes x 2, then every 1 hour x 1 after each naloxone dose. Consider transfer to ICU if patient respiratory parameters have not improved after 4 naloxone doses. For ordered IV doses 0.1-2mg give IVP. Give each 0.4mg over 15 seconds in emergency situations. For non -emergent situations further dilute in 9mL of NS to facilitate titration of response. ondansetron (ZOFRAN) injection 4 mg 4 mg, Intravenous, EVERY 6 HOURS PRN, nausea, vomiting , Administer over 2-5 Minutes, Starting on Wed05/31/20 at 1506 , Give IF patient unable to tolerate oral medication. This is Step 1 of nausea and vomiting edison gement. If nausea not resolved in 15 minutes, go to Step 2 pro chlorperazine (COMPAZINE). Irritant. For ordered IV doses 0.1-4 mg, give IV Push undiluted over 2-5 minutes. ondansetron (ZOFRAN-ODT) ODT tab 4 mg 4 mg, Oral, EVERY 6 HOURS PRN, nausea, v omiting, Starting on Wed05/31/20 at 1506, This is Step 1 of nausea and vomiting management. If n ausea not resolved in 15 minutes, go to Step 2 prochlorperazine ( COMPAZINE). With dry hands, peel back foil backing and gently remove tablet. Do not push oral disintegrating tablet through foil backing. Administer immediately on tongue and ora l disintegrating tablet dissolves in seconds, then swallow with saliva. Liquid not required. senna-docusate (SENOKOT-S/PERICOLACE) 8. 6-50 MG per tablet 1 tablet 1 tablet, Oral, 2 TIMES DAILY PRN, const ipation, Starting on Wed05/31/20 at 1506, If no bowel movement in 24 hours, increa se to 2 tablets PO. Hold for loose stools. This is the first step of a three step constipation tr eatment. Hold for loose stools. senna-docusate (SENOKOT-S/PERICOLACE) 8. 6-50 MG per tablet 2 tablet 2 tablet, Oral, 2 TIMES DAILY PRN, const ipation, Starting on Wed05/31/20 at 1506, Hold for loose stools. This is the first step of a thr ee step constipation treatment. Hold for loose stools. sodium chloride (PF) 0.9% PF flush 3 mL Given 06/02/2020 9:19 AM CDT 3 mLs 3 mL, Intracatheter, EVERY 8 HOURS, First dose on Wed05/31/20 at 1530, to lock peripheral IV dormant line Given 06/02/2020 2:23 AM CDT 3 mLs Given 06/01/2020 3:32 PM CDT 3 mLs sodium chloride 0.9% infusion New Bag 06/01/2020 2:10 AM CDT 100 mL/hr at 100 mL/hr, Intravenous, CONTINUOUS, Starting on Wed05/31/20 at 1530, Until 06/01/20 at 1337 Rate/Dose Verify 05/31/2020 11:07 PM CDT 100 mL/hr New Bag 05/31/2020 3:47 PM CDT 100 mL/hr documented in this encounter Active and Recently Administered Medications Times are shown in CDT. Scheduled Medication Order 05/31/2020 06/01/2020 06/02/2020 acetaminophen (TYLENOL) tablet 1,000 mg 1555 (Given - Provider: Bernie Fournier LPN) 0123 (Not Given - Provider: Junie Soto RN - Reason: Patient sleeping)0900 (Not Given - Provider: Karley Arteaga RN - Reason: Patient/family refused) 0228 (Not Given - Provider: Junie Soto RN - Reason: Patient/family refused)0818 (Not Given - Provider: Natty Valladares RN - Reason: Patient/family refused) 1,000 mg, Oral, EVERY 8 HOURS, First dos e on Wed05/31/20 at 1600, Maximum acetaminophen dose from all sources = 75 mg/kg/day not to exceed 4 gram 1532 (Not Given - Provider: Bernie Fournier LPN - Reason: Patient/family refused - Comment: no pain)1738 (Given - Provider: Karley Arteaga RN - Comment: Given later due to no poain at time due) ampicillin-sulbactam (UNASYN) 3 g vial to attach to NS 100 mL bag (COMPLETED) 1342 (New Bag - Provider: Bernie Cowart RN)1442 (Stopped - Provider: Bernie Cowart RN) STAT, 3 g, Intravenous, ONCE, Wed 1 at 1250, For 1 dose, Indications: cat bite ampicillin-sulbactam (UNASYN) 3 g vial to attach to NS 100 mL bag 195 (New Bag - Provider: Ami Harding RN) 0206 (New Bag - Provider: Junie castellon RN)0900 (New Bag - Provider: Karley Arteaga RN)1353 (New Bag - Provider: Karley Arteaga RN)2030 (New Bag - Provider: Junie Soto RN) 0224 (New Bag - Provider: Junie Soto RN)0811 (New Bag - Provider: Natty Valladares RN)1400 (Canceled Entry - Provider: Orders Generic Provider - Comment: Automatically canceled at discontinue of medication order) Routine, 3 g, Intravenous, EVERY 6 HOURS , First dose on Wed05/31/20 at 2000, Indications: Skin and Soft Tissue Infection atenolol (TENORMIN) tablet 50 mg 0900 (G iven - Provider: Karley Arteaga RN) 0813 (Given - Provider: Natty regan RN) 50 mg, Oral, DAILY, First dose on Wed06/01/20 at 0800, Hold for sbp<120, HR<60 citalopram (celeXA) tablet 20 mg 1557 (Given - Provide r: Bernie Fournier LPN) 0900 (Given - Provider: Karley Arteaga RN) 0813 ( Given - Provider: Natty Valladares RN) 20 mg, Oral, DAILY, First dose on Wed05/31/20 at 1600 famotidine (PEPCID) tablet 20 mg 1951 (Given - Provider: Dede Harding RN) 0900 (Given - Provider: Karley Arteaga RN)2030 (Given - Provider: Junie Soto RN) 0813 (Given - Provider: Natty regan RN) 20 mg, Oral, 2 TIMES DAILY, First dose on Wed05/31/20 at 2000 sodium chloride (PF) 0.9% PF flush 3 mL 1551 (Given - Provider: Bernie Fournier LPN)2251 (Not Given - Provider: Ami Harding RN - Reason: IV Infusing) 0859 (Not Given - Provider: Karley castaneda RN - Reason: IV Infusing)1532 (Given - Provider: Bernie Fournier LPN) 0223 (Given - Provider: Junie Soto RN)0919 (Given - Provider: Natty Valladares RN)1030 (Canceled Entry - Provider: Natty Valladares RN - Comment: given, see MAR) 3 mL, Intracatheter, EVERY 8 HOURS, Firs t dose on Wed05/31/20 at 1530, to lock peripheral IV dormant line Continuous Medication Order 05/31/2020 06/01/2020 06/02/2020 sodium chloride 0.9% infusion (CANCELED) 1547 (New Bag - Provider: Bernie Fournier LPN)2307 (Rate/Dose Verify - Provider: Junie Soto RN) 0210 (New Bag - Provider: Junie Soto RN) at 100 mL/hr, Intravenous, CONTINUOUS, S tarting Wed05/31/20 at 1530, Until 06/01/20 at 1337 PRN Medication Order 05/31/2020 06/01/2020 06/02/2020 acetaminophen (TYLENOL) tablet 650 mg 650 mg, Oral, EVERY 4 HOURS PRN, mild pa in, Starting Wed05/31/20 at 1506, Alternate ibuprofen (if ordered) with acetaminophen. Maximum acetaminophen dose from all sources = 75 mg/kg/day not to exceed 4 grams/day. HYDROmorphone (PF) (DILAUDID) injection 0.3-0.5 mg 0.3-0.5 mg, Intravenous, EVERY 2 HOURS P RN, other, for pain control or improvement in physical function. Hold dose for analgesic side effects., Starting Wed05/31/20 at 1506, Start at the lowest dose. Ma y adjust dose by 0.1 mg every 2 hours as needed. Notify provider to assess for uncontrolled pain or analgesic side effects. Hold while on TRAY LINE SUPERVISOR or with regular IV opioid dosing For ordered IV doses 0.1-4 mg give IV Push undiluted. Administer each 2mg over 2-5 minutes. ibuprofen (ADVIL/MOTRIN) tablet 600 mg 1956 (Given - P rovider: Ami Harding RN) 0400 (Not Given - Provider: Junie Soto RN - Reason: Patient/family refused) 0813 (Given - Provider: Natty regan RN) 600 mg, Oral, EVERY 6 HOURS PRN, other, mild pain, Starting Wed05/31/20 at 1506, Alternate acetaminophen (if ordered) with ibuprofen Give with food. lidocaine (LMX4) cream Topical, EVERY 1 HOUR PRN, pain, with VA D insertion, Starting Wed05/31/20 at 1506, Apply at least 30 minutes prior to VAD insertion in divided doses as needed for size of site for insertion. MAX Dose: 2 .5 g (?? of 5 g tube) Do NOT give if pat ient has a history of allergy to any local anesthetic or any emily product. Do NOT use both lidocaine intradermal/subcutaneous injection and the lidocaine cream on the same site. lidocaine 1 % 0.1-1 mL 0.1-1 mL, Other, EVERY 1 HOUR PRN, mild pain with VAD insertion, Starting Wed05/31/20 at 1506, MAX dose 1 mL subcutaneous OR intradermal along the side of the vein in divided doses as needed for VAD ins ertion. Do NOT give if patient has a his tory of allergy to any local anesthetic or any emily product. Do NOT use both lidocaine intradermal/subcutaneous injection and the lidocaine cream on the same site. naloxone (NARCAN) injection 0.2 mg(Linked Group 1) 0.2 mg, Intravenous, EVERY 2 MIN PRN, op ioid reversal, Starting Wed05/31/20 at 1532, Administer intravenous route when available and notify provider when administered. For unintended sedation or respira tory depression if all of the below crit eria are met: ~ respiratory rate LESS than or EQUAL to 8. ~SaO2 less than 92% and or/end-tidal CO2 is greater than 50. ~ the patient is receiving an opioid, has u nintended sedations assessed as RASS (-3 ), and is currently not on mechanical ventilation. RASS scale moderate (-3) is movement or eye opening to voice but no eye contact. Patient Monitoring Once the pa tient has demonstrated a response to the naloxone, continue to monitor respiratory rate, depth, oxygen saturation and end-tidal CO2 (if available) every 15 minutes x 2, then every 30 minutes x 2, then e very 1 hour x 1 after each naloxone dose . Consider transfer to ICU if patient respiratory parameters have not improved after 4 naloxone doses. For ordered IV doses 0.1-2mg give IVP. Give each 0.4mg over 15 seconds in emergency situations. For non-emergent situations further dilute in 9mL of NS to facilitate titration of response. naloxone (NARCAN) injection 0.2 mg(Linked Group 1) 0.2 mg, Intramuscular, EVERY 2 MIN PRN, opioid reversal, Starting Wed05/31/20 at 1532, Administer intramuscular if an intravenous route is not available and notify provider when administered. For uninte nded sedation or respiratory depression if all of the below criteria are met: ~ respiratory rate LESS than or EQUAL to 8. ~SaO2 less than 92% and or/end-tidal CO2 is greater than 50. ~ the patient is re ceiving an opioid, has unintended sedati ons assessed as RASS (-3), and is currently not on mechanical ventilation. RASS scale moderate (-3) is movement or eye opening to voice but no eye contact. Patien t Monitoring Once the patient has demons trated a response to the naloxone, continue to monitor respiratory rate, depth, oxygen saturation and end-tidal CO2 (if available) every 15 minutes x 2, then ever y 30 minutes x 2, then every 1 hour x 1 after each naloxone dose. Consider transfer to ICU if patient respiratory parameters have not improved after 4 naloxone doses. For ordered IV doses 0.1-2mg give I MULTIMEDIA COORDINATOR. Give each 0.4mg over 15 seconds in e mergency situations. For non-emergent situations further dilute in 9mL of NS to facilitate titration of response. naloxone (NARCAN) injection 0.4 mg(Linked Group 1) 0.4 mg, Intravenous, EVERY 2 MIN PRN, op ioid reversal, Starting Wed05/31/20 at 1532, Administer intravenous route when available and notify provider when administered. For unintended sedation or respira tory depression if all of the below crit eria are met: ~ respiratory rate LESS than or EQUAL to 8. ~ SaO2 less than 92% and or/end-tidal CO2 is greater than 50. ~ the patient is receiving an opioid, has unintended sedation assessed as RASS (-4 ) or (-5) and patient is currently not on mechanical ventilation. RASS scale (-4) is deep sedation with no response to voice but movement or eye opening to physic al stimulation. RASS scale (-5) is unaro usable. Patient Monitoring Once the patient has demonstrated a response to the naloxone, continue to monitor respiratory rate, depth, oxygen saturation and end-ti kati CO2 (if available) every 15 minutes x 2, then every 30 minutes x 2, then every 1 hour x 1 after each naloxone dose. Consider transfer to ICU if patient respiratory parameters have not improved after 4 naloxone doses. For ordered IV doses 0.1-2mg give IVP. Give each 0.4mg over 15 seconds in emergency situations. For non-emergent situations further dilute in 9mL of NS to facilitate titration of response. naloxone (NARCAN) injection 0.4 mg(Linked Group 1) 0.4 mg, Intramuscular, EVERY 2 MIN PRN, opioid reversal, Starting Wed05/31/20 at 1532, Administer intramuscular if an intravenous route is not available and notify provider when administered. For uninte nded sedation or respiratory depression if all of the below criteria are met: ~ respiratory rate LESS than or EQUAL to 8. ~ SaO2 less than 92% and or/end-tidal CO2 is greater than 50. ~ the patient is r eceiving an opioid, has unintended sedat ion assessed as RASS (-4) or (-5) and patient is currently not on mechanical ventilation. RASS scale (-4) is deep sedation with no response to voice but movement or eye opening to physical stimulation. RASS scale (-5) is unarousable. Patient Monitoring Once the patient has demonstrated a response to the naloxone, continue to monitor respiratory rate, depth, oxyg en saturation and end-tidal CO2 (if avai lable) every 15 minutes x 2, then every 30 minutes x 2, then every 1 hour x 1 after each naloxone dose. Consider transfer to ICU if patient respiratory parameters have not improved after 4 naloxone dose s. For ordered IV doses 0.1-2mg give IVP. Give each 0.4mg over 15 seconds in emergency situations. For non-emergent situations further dilute in 9mL of NS to facilitate titration of response. ondansetron (ZOFRAN) injection 4 mg(Linked Group 2) 4 mg, Intravenous, EVERY 6 HOURS PRN, na usea, vomiting, Administer over 2-5 Minutes, Starting Wed05/31/20 at 1506, Give IF patient unable to tolerate oral medication. This is Step 1 of nausea and vomiti ng management. If nausea not resolved in 15 minutes, go to Step 2 prochlorperazine (COMPAZINE). Irritant. For ordered IV doses 0.1-4 mg, give IV Push undiluted over 2-5 minutes. ondansetron (ZOFRAN-ODT) ODT tab 4 mg(Linked Group 2) 4 mg, Oral, EVERY 6 HOURS PRN, nausea, v omiting, Starting Wed05/31/20 at 1506, This is Step 1 of nausea and vomiting management. If nausea not resolved in 15 minutes, go to Step 2 prochlorperazine (COMP AZINE). With dry hands, peel back foil b acking and gently remove tablet. Do not push oral disintegrating tablet through foil backing. Administer immediately on tongue and oral disintegrating tablet diss olves in seconds, then swallow with saliva. Liquid not required. polyethylene glycol (MIRALAX) Packet 17 g 17 g, Oral, DAILY PRN, constipation, Sta rting Wed05/31/20 at 1506, Give in 8oz of water, juice, or soda. Hold for loose stools. This is the second step of a three step constipation treatment. 1 Packet = 17 grams. Mix each gram with at least 1 /2 ounce (15 mL) of water - 8 ounces for 17 g dose, 4 ounces for 8.5 g dose, 2 ounces for 4 g dose. Follow with the same volume of water. Hold for loose stools. senna-docusate (SENOKOT-S/PERICOLACE) 8. 6-50 MG per tablet 1 tablet(Linked Group 3) 1 tablet, Oral, 2 TIMES DAILY PRN, const ipation, Starting 05/31/20 at 1506, If no bowel movement in 24 hours, increase to 2 tablets PO. Hold for loose stools. This is the first step of a three step constipation treatment. Hold for loose stools. senna-docusate (SENOKOT-S/PERICOLACE) 8. 6-50 MG per tablet 2 tablet(Linked Group 3) 2 tablet, Oral, 2 TIMES DAILY PRN, const ipation, Starting Wed05/31/20 at 1506, Hold for loose stools. This is the first step of a three step constipation treatment. Hold for loose stools. sodium chloride (PF) 0.9% PF flush 3 mL 3 mL, Intracatheter, EVERY 1 MIN PRN, li ne flush, other, to ensure patency or to lock dormant line, Starting Wed05/31/20 at 1506 traMADol (ULTRAM) tablet 50 mg 50 mg, Oral, EVERY 6 HOURS PRN, moderate pain, Starting 05/31 at 1506 Linked Groups Order Group 1: naloxone (NARCAN) injection 0.2 mgJump to med 0.2 mg, Intravenous, EVERY 2 MIN PRN, op ioid reversal, Starting Wed05/31/20 at 1532
Administer intravenous route when available and notify provider when administered. For unintended se dation or respiratory depression if all of the below criteria are met: ~ respiratory rate LESS than or EQUAL to 8. ~SaO2 less than 92% and or/end- tidal CO2 is greater than 50.&nbs p;~ the patient is receiving an opioid, has unintended sedations assessed as RASS (-3), and is currently not on mechanical ventilation. RASS scale moderate (-3) is movement or eye ope leslie to voice but no eye contact. & nbsp;Patient Monitoring Once the patient has demonstrated a response to the naloxone, continue to monitor respiratory rate, depth, oxygen saturat ion and end-tidal CO2 (if available) rafael ry 15 minutes x 2, then every 30 minutes x 2, then every 1 hour x 1 after each naloxone dose. Consider transfer to ICU if patient respiratory p arameters have not improved after 4 nalo xone doses. For ordered IV doses 0.1-2mg give IVP. Give each 0.4mg over 15 seconds in emergency situations. For non-emergent situations further dilute in 9mL of NS to facilitate titration of response.
Or naloxone (NARCAN) injection 0.4 mgJump to med 0.4 mg, Intravenous, EVERY 2 MIN PRN, op ioid reversal, Starting Wed05/31/20 at 1532
Administer intravenous route when available and notify provider when administered. For unintended se dation or respiratory depression if all of the below criteria are met: ~ respiratory rate LESS than or EQUAL to 8. ~ SaO2 less than 92% and or/end- tidal CO2 is greater than 50.&nbs p;~ the patient is receiving an opioid, has unintended sedation assessed as RASS (-4) or (-5) and patient is currently not on mechanical ventilation. RASS scale (-4) is deep sedation with no response to voice but movement o r eye opening to physical stimulation. RASS scale (-5) is unarousable. Patient Monitoring Once the patient has demonstrated a response to the naloxone, continue to monitor respiratory rate, depth, oxygen saturation and end-tidal CO2 (if available) every 15 minutes x 2, then every 30 minutes x 2, then every 1 hour x 1 after each naloxon e dose. Consider transfer to ICU if patient respiratory parameters have not improved after 4 naloxone doses. For ordered IV doses 0.1- 2mg give IVP. Give each 0.4mg over 15 se conds in emergency situations. For non- emergent situations further dilute in 9mL of NS to facilitate titration of response.
Or naloxone (NARCAN) injection 0.2 mgJump to med 0.2 mg, Intramuscular, EVERY 2 MIN PRN, opioid reversal, Starting Wed05/31/20 at 1532
Administer intramuscular if an intravenous route is not available and notify provider when administered.&am p;nbsp;For unintended sedation or respir atory depression if all of the below criteria are met: ~ respiratory rate LESS than or EQUAL to 8. ~SaO2 less than 92% and or/end-tidal CO2 is greater than 50. ~ the patient is r eceiving an opioid, has unintended sedations assessed as RASS (-3), and is currently not on mechanical ventilation. RASS scale moderate (-3 ) is movement or eye opening to voice bu t no eye contact. Patient Monitoring Once the patient has demonstrated a response to the naloxone, continue to monitor respiratory rat e, depth, oxygen saturation and end-tida l CO2 (if available) every 15 minutes x 2, then every 30 minutes x 2, then every 1 hour x 1 after each naloxone dose. Consider transfer to ICU if patient respiratory parameters have n ot improved after 4 naloxone doses. For ordered IV doses 0.1-2mg give IVP. Give each 0.4mg over 15 seconds in emergency situations. For non-emergent situ ations further dilute in 9mL of NS to fa cilitate titration of response.
Or naloxone (NARCAN) injection 0.4 mgJump to med 0.4 mg, Intramuscular, EVERY 2 MIN PRN, opioid reversal, Starting Wed05/31/20 at 1532
Administer intramuscular if an intravenous route is not available and notify provider when administered.&am p;nbsp;For unintended sedation or respir atory depression if all of the below criteria are met: ~ respiratory rate LESS than or EQUAL to 8. ~ SaO2 less than 92% and or/end-tidal CO2 is greater than 50. ~ the patient is r eceiving an opioid, has unintended sedation assessed as RASS (-4) or (-5) and patient is currently not on mechanical ventilation. RASS scal e (-4) is deep sedation with no response to voice but movement or eye opening to physical stimulation. RASS scale (-5) is unarousable. Patient M onitoring Once the patient has demo nstrated a response to the naloxone, continue to monitor respiratory rate, depth, oxygen saturation and end-tidal CO2 (if available) every 15 minutes x 2, the n every 30 minutes x 2, then every 1 janet r x 1 after each naloxone dose. Consider transfer to ICU if patient respiratory parameters have not improved after 4 naloxone doses. F or ordered IV doses 0.1-2mg give IVP. Gi ve each 0.4mg over 15 seconds in emergency situations. For non-emergent situations further dilute in 9mL of NS to facilitate titration of response.
Group 2: ondansetron (ZOFRAN-ODT) ODT tab 4 mgJump to med 4 mg, Oral, EVERY 6 HOURS PRN, nausea, v omiting, Starting Wed05/31/20 at 1506
This is Step 1 of nausea and vomiting management. If nausea not resolved in 15 minutes, go to St ep 2 prochlorperazine (COMPAZINE). With dry hands, peel back foil backing and gently remove tablet. Do not push oral disintegrating tablet through foil backing. Administer immediately on tongue and oral disintegrating tablet dissolve s in seconds, then swallow with saliva. Liquid not required.
Or ondansetron (ZOFRAN) injection 4 mgJump to med 4 mg, Intravenous, EVERY 6 HOURS PRN, na usea, vomiting, Administer over 2-5 Minutes, Starting Wed05/31/20 at 1506
Give IF patient unable to tolerate oral medication. This is Step 1 of nausea and vomiting management. If nause a not resolved in 15 minutes, go to Step 2 prochlorperazine (COMPAZINE). Irritant. For ordered IV doses 0.1-4 mg, give IV Push undiluted over 2-5 minutes.
Group 3: senna-docusate (SENOKOT-S/PERICOLACE) 8.6-50 MG per tablet 1 tabletJump to med 1 tablet, Oral, 2 TIMES DAILY PRN, const ipation, Starting 05/31/20 at 1506
If no bowel movement in 24 hours, increase to 2 tablets PO. Hold for loose stools. This is the first step of a three step const ipation treatment. Hold for loose stools.
Or senna-docusate (SENOKOT-S/PERICOLACE) 8.6-50 MG per tablet 2 tabletJump to med 2 tablet, Oral, 2 TIMES DAILY PRN, const ipation, Starting 05/31/20 at 1506
Hold for loose stools. This is the first step of a three step constipation treatment. Hold for loose stools.
documented in this encounter Additional Health Concerns Assessment Noted Time PHQ-9 Depression Total Score: 2 05/31/2020 10:50 AM CD T documented as of this encounter Care Teams Ruffling Hemmer Automatic Relationship Specialty Start Date End Date Kleber Ledesma, PCP - General Physician Medical Office Secretary - 05/15/14 [facility] Kleber Ledesma, Assigned PCP 09/19/17 PADeanneC [id number] LUZMARIA REES [id number] Junie Rm PA-C Assigned PCP 06/02/20 06/08/20 [id number] LUZMARIA HUMPHREY [id number] documented as of this encounter
--- OUTSIDE RECORDS SUMMARY | 2022-01-05 11:33 | XMS_ITS | Encounter Summary ---
:1960 Author Organization [facility] Address [address] [place] [address]. [place] [address] Care Team Providers Name Role Phone Kleber Ledesma PA-C Primary Care Provider [phone] Kleber Ledesma PA-C Unavailable [phone] Reason for Visit Reason Comments Medication Refill Encounter Details Date Type Department Care Team Description 02/23/2020 Refill [facility] Kleber Ledesma, Medication Refill [place] RACHNA [id number] [facility], [address] [place] [address] [place] [address] [place] [phone] Social History Tobacco Use Types Packs/Day Years [...] Telephone Encounter - Deisy Elizabeth RN - 02/27/2020 11:50 AM CST Prescription approved [place] [facility] [place] Protocol. Deisy Elizabeth RN SSIONS OFFICER documented in this encounter Plan of Treatment Not on filedocumented as of this encounter Visit Diagnoses Diagnosis Adjustment disorder with mixed anxiety a nd depressed mood documented in this encounter Additional Health Concerns Assessment Noted Time PHQ-9 Depression Total Score: 3 10/18/2019 4:20 PM CDT documented as of this encounter Care Teams Manager Video Games Relationship Specialty Start Date End Date Kleber Ledesma, PCP - General Physician Opinion Polls Survey Worker - 05/15/14 [facility] Medical Kleber Ledesma, Assigned PCP 09/19/17 RACHNA [id number] [address] [place] [address] documented as of this encounter
--- OUTSIDE RECORDS SUMMARY | 2022-01-05 11:33 | XMS_ITS | Encounter Summary ---
:1960 Author Organization [facility] Address [address] [place] [id number] Care Team Providers Name Role Phone Kleber Ledesma PA-C Primary Care Provider [phone] Kleber Ledesma PA-C Unavailable [phone] Reason for Visit Reason Onset Date Comments Arm Pain LEFT ARM PAIN Flu Shot Imm/Inj 10/18/2019 Flu Shot Encounter Details Date Type Department Care Team Description 10/18/2019 Office Visit [facility] Dewey Arredondo Latera l epicondylitis of left elbow (Primary Dx); [facility] [place] R[facility] Need for prophylactic vaccination and in oculation against influenza [address] [place] [id number] [phone] Social History Tobacco Use Types Packs/Day Years [...] been in contact with No / Unsure 10/18/2019 3:37 PM CDT someone who was confirmed or suspected to have Coronavirus / COVID-19? documented as of this encounter Last Filed Vital Signs Vital Sign Reading Time Taken Comments Blood Pressure 106/66 10/18/2019 3:47 PM CDT Pulse 72 10/18/2019 3:47 PM CDT Temperature 36.9 ??C (98.5 ??F) 10/18/2019 3:47 PM CDT Respiratory Rate 12 10/18/2019 3:47 PM CDT Oxygen Saturation - - Inhaled Oxygen Concentration - - Weight 67.6 kg (149 lb) 10/18/2019 3:47 PM CDT Height - - Body Mass Index 27.25 11/14/2018 10:12 AM CDT documented in this encounter Patient Instructions Patient InstructionsDewey Arredondo PA-C - 10/18/2019 4:00 PM CDT Images from the original note were not included. Continue to take 600 mg of ibuprofen 3 times a day for a few weeks. Apply ice 3-4 times a day for 15-20 minutes at a time. Wear the tennis elbow strap during the day. Follow-up if not improving in 3-4 weeks or sooner if worsening. Patient Education Understanding Lateral Epicondylitis Tendons are strong bands of tissue that connect muscles to bones. Lateral epicondylitis affects the tendons that connect muscles in the forearm to the lateral epicondyle. This is the bony knob on the outer side of the elbow. The condition occurs if the extensor tendons of the wrist become red and swollen (irritated). This can cause pain in the elbow, forearm, and wrist. Because the condition is sometimes caused by playing tennis, it is also known as ???tennis elbow.?? How to say it LA-tuhr-hussein bu-eg-QAU-duh-LY-tis What causes lateral epicondylitis? The condition most often occurs because of overuse. This can be from any activity that repeatedly puts stress on the forearm extensor muscles or tendons and wrist. For instance, playing tennis, liftingweights, cutting meat, painting, and typing can all cause the condition. Wear and tear of the tendons from aging or an injury to the tendons can also cause the condition. Symptoms of lateral epicondylitis The most common symptom is pain. You may feel it on the outer side of the elbow and down the back ofthe forearm. It may be worse when moving or using the elbow, forearm, or wrist. You may also feel pain when gripping or lifting things. Treatment for lateral epicondylitis Treatments may include: ?? Resting the elbow, forearm, and wrist. You???ll need to avoid movements that can make your symptoms worse. You also may need to avoid certain sports and types of work for a time. This helps relieve symptoms and prevent further damage to the tendons. ?? Changing the action that caused the problem. For instance, if the tendons were damaged from playing tennis, it may help to change your playing technique or use different equipment. This helps prevent further damage to the tendons. ?? Using cold packs. Putting an ice pack on the injured area can help reduce pain and swelling. ?? Taking pain medicines. Taking prescription or oarp-qrg-ugzpupa pain medicines may help reduce pain and swelling. ? Wearing a brace. This helps reduce strain on the muscles and tendons in the forearm, which may relieve symptoms. It is very important to wear the brace properly. ?? Doing exercises and physical therapy. These help improve strength and range of motion in the elbow, forearm, and wrist. ?? Getting shots of medicine into the injured area. These may help relieve symptoms for a time. ?? Having surgery. This may be an option if other treatments fail to relieve symptoms. In many cases, the surgeon removes the damaged tissue. Possible complications of lateral epicondylitis If the tendons involved don???t heal properly, symptoms may return or get worse. To help prevent this, follow your treatment plan as directed. When to call your healthcare provider Call your healthcare provider right away if you have any of these: ?? Fever of 100.4??F (38??C) or higher, or as directed ?? Redness, swelling, or warmth in the elbow or forearm that gets worse ?? Symptoms that don???t get better with treatment, or get worse ?? New symptoms Date Last Reviewed: 04/18/2015 ?? [id number] [employer]. [address] [place] [address], [place] [address]. All rights reserved. This information is not intended as a substitute for professional medical care. Always follow your healthcare professional's instructions. AttachmentsThe following attachments cannot be sent through Care Everywhere.[place] Quit Partner Informationdocumented in this encounter Progress Notes Dewey Arredondo PA-C - 10/18/2019 4:00 PM CDT Subjective Amie Scott is a 59 year old female who presents to clinic today for the following health issues: HPI Musculoskeletal problem/pain Onset/Duration: 1 day Description Location: ARM/ELBOW - left Joint Swelling: no Redness: no Pain: YES Warmth: no Intensity: severe, 8/10 Progression of Symptoms: improving Accompanying signs and symptoms: Fevers: no Numbness/tingling/weakness: no History Trauma to the area: no Recent illness: no Previous similar problem: no Previous evaluation: no Precipitating or alleviating factors: Aggravating factors include: lifting AND pulling Applied pressure in an odd position over the weekend. Therapies tried and outcome: advil seems to help Review of Systems Constitutional, HEENT, cardiovascular, pulmonary, gi and gu systems are negative, except as otherwise noted. Objective BP 106/66 (BP Location: Right arm, Patient Position: Sitting, Cuff Size: Adult Regular) Pulse 72 Temp 98.5 ??F (36.9 ??C) (Oral) Resp 12 Wt 67.6 kg (149 lb) LMP 02/22/2010 (LMP Unknown) BMI27.25 kg/m?? Body mass index is 27.25 kg/m??. Physical Exam GENERAL: healthy, alert and no distress EYES: Eyes grossly normal to inspection, PERRL and conjunctivae and sclerae normal MS: no gross musculoskeletal defects noted, no edema SKIN: no suspicious lesions or rashes NEURO: Normal strength and tone, mentation intact and speech normal PSYCH: mentation appears normal, affect normal/bright Left elbow: There is no erythema, edema, or ecchymosis. Tender to palpation over lateral epicondyle.Otherwise non-tender. ROM intact but pain with full flexion. Strength intact but pain with some resisted extension maneuvers. CMS intact. No testing indicated. Assessment & Plan Lateral epicondylitis of left elbow Continue conservative treatments. Wear tennis elbow strap during the day. Call or follow-up if not improving to consider ortho referral. - Wrist/Arm/Hand Supplies Order for DME - ONLY FOR DME Need for prophylactic vaccination and inoculation against influenza - INFLUENZA QUAD, RECOMBINANT, P-FREE (RIV4) (FLUBLOCK) [63024] - Vaccine Administration, Initial [70924] Patient Instructions Continue to take 600 mg of ibuprofen 3 times a day for a few weeks. Apply ice 3-4 times a day for 15-20 minutes at a time. Wear the tennis elbow strap during the day. Follow-up if not improving in 3-4 weeks or sooner if worsening. No follow-ups on file. Dewey Arredondo PA-C [facility] documented in this encounter Nursing Notes Maricarmen Eller CMA - 10/18/2019 4:00 PM CDT Chief Complaint Patient presents with ??? Arm Pain LEFT ARM PAIN Initial BP 106/66 (BP Location: Right arm, Patient Position: Sitting, Cuff Size: Adult Regular) Pulse 72 Temp 98.5 ??F (36.9 ??C) (Oral) Resp 12 Wt 67.6 kg (149 lb) LMP 02/22/2010 (LMP Unknown) BMI 27.25 kg/m?? Estimated body mass index is 27.25 kg/m?? as calculated from the following: Height as of 11/14/18: 1.575 m (5' 2). Weight as of this encounter: 67.6 kg (149 lb). BP completed using cuff size regular LONG right arm Maricarmen Eller CMA documented in this encounter Plan of Treatment Not on filedocumented as of this encounter Visit Diagnoses Diagnosis Lateral epicondylitis of left elbow - Pr imary Lateral epicondylitis of elbow Need for prophylactic vaccination and in oculation against influenza documented in this encounter Additional Health Concerns Assessment Noted Time PHQ-9 Depression Total Score: 3 10/18/2019 4:20 PM CDT documented as of this encounter Care Teams Senior Systems Administrator Relationship Specialty Start Date End Date Kleber Ledesma, PCP - General Physician Graduate Assistant - 05/15/14 [facility] Medical Kleber Ledesma, Assigned PCP 09/19/17 R[facility] [address] [address] [place] [address] documented as of this encounter
--- OUTSIDE RECORDS SUMMARY | 2022-01-05 11:33 | XMS_ITS | Encounter Summary ---
:1960 Author Organization [facility] Address [address] [place] [address]. [place] [address] Care Team Providers Name Role Phone Kleber Ledesma PA-C Primary Care Provider [phone] Kleber Ledesma PA-C Unavailable [phone] Reason for Visit Reason Comments Urgent Care Musculoskeletal Problem Left ankle pain-possible bug bite-no known injury-Happened lastnight woke up with blood on sheets Encounter Details Date Type Department Care Team Description 05/29/2020 Office Visit [facility] Langeness, Safia, Other superficial bite Urgent Care Kavitha pierre PA-C of ankle, left ankle, [id number] [facility] [facility] (Primary Dx) [place], [place] CARE [address] [phone] [place] [address] Social History Tobacco Use Types Packs/Day Years [...] in contact with No / Unsure 05/29/2020 7:04 PM CDT someone who was confirmed or suspected to have Coronavirus / COVID-19? documented as of this encounter Last Filed Vital Signs Vital Sign Reading Time Taken Comments Blood Pressure 107/66 05/29/2020 7:11 PM CDT Pulse 91 05/29/2020 7:11 PM CDT Temperature 37.1 ??C (98.8 ??F) 05/29/2020 7:11 PM CDT Respiratory Rate 20 05/29/2020 7:11 PM CDT Oxygen Saturation 97% 05/29/2020 7:11 PM CDT Inhaled Oxygen Concentration - - Weight - - Height - - Body Mass Index - - documented in this encounter Patient Instructions Patient InstructionsLanSafia meadows PA-C - 05/29/2020 7:05 PM CDT Please go to [facility] for additional evaluation. documented in this encounter Progress Notes Safia King PA-C - 05/29/2020 7:05 PM CDT Assessment & Plan Other superficial bite of ankle, left ankle, sequela - referred patient to [facility] ER for further evaluation. Called [facility] to let them know patient is onher way. Diagnosis and treatment plan were discussed with patient and/or parent. If symptoms worsen or do notimprove in the next few days, follow-up with your primary care provider or visit an [facility] urgent care clinic location. Patient verbalizes understanding of all things discussed. All questions were addressed and answered. Safia King PA-C [facility] RIANNA Holloway is a 60 year old female who presents to clinic today for the following health issues: Chief Complaint Patient presents with ??? Urgent Care ??? Musculoskeletal Problem Left ankle pain-possible bug bite-no known injury-Happened lastnight woke up with blood on sheets HPI Left ankle pain since last night. Pain woke her up from sleep. Went to work today and is on her feet a lot which was very painful. She can bear weight but limited due to pain. Advyari took some of the pain away. Recently traveled to [place], got back last . No fevers or chills. Just feels tired today. Lives in [place]. No history of blood clots. No smoking. Denies allergies to medications. Currently takes atenolol and citalopram and certrizine. Review of Systems Constitutional, HEENT, cardiovascular, pulmonary, gi and gu systems are negative, except as otherwise noted. Objective BP 107/66 Pulse 91 Temp 98.8 ??F (37.1 ??C) (Oral) Resp 20 LMP 02/22/2010 (LMP Unknown) SpO2 97% No Physical Exam GENERAL: healthy, alert and no distress EYES: Eyes grossly normal to inspection, PERRL and conjunctivae and sclerae normal NECK: no adenopathy, no asymmetry, masses, or scars and thyroid normal to palpation RESP: lungs clear to auscultation - no rales, rhonchi or wheezes CV: regular rate and rhythm, normal S1 S2, no S3 or S4, no murmur, click or rub MS: no gross musculoskeletal defects noted, no edema SKIN: L ankle: 2 black puncture wounds 1mm in length about 1.5 inches apart. Surrounding erythema and swelling to left lateral malleolus. documented in this encounter Plan of Treatment Not on filedocumented as of this encounter Visit Diagnoses Diagnosis Other superficial bite of ankle, left an kle, sequela - Primary documented in this encounter Additional Health Concerns Assessment Noted Time PHQ-9 Depression Total Score: 3 10/18/2019 4:20 PM CDT documented as of this encounter Care Teams Shingle Trimmer Relationship Specialty Start Date End Date Kleber Ledesma, PCP - General Physician Sheep And Wheat Farmer - 05/15/14 [facility] Kleber Ledesma, Assigned PCP 09/19/17 [facility] [address] [place] [address] documented as of this encounter
--- OUTSIDE RECORDS SUMMARY | 2022-01-05 11:33 | XMS_ITS | Encounter Summary ---
:1960 Author Organization [facility] Address [address] [place] [id number] Care Team Providers Name Role Phone Kleber Ledesma PA-C Primary Care Provider [phone] Kleber Ledesma PA-C Unavailable [phone] Sasha Tai RN Unavailable Unavailable Reason for Visit Reason Onset Date Comments Covid 19 Testing 01/08/2020 Encounter Details Date Type Department Care Team Description 01/08/[address] [facility] Thania Carballo Exposure to COVID-19 Urgent Care Shlomo Duong APRN [facility] virus [address] [address] [phone] Social History Tobacco Use Types Packs/Day Years [...] last month, have you been in contact Unable to assess 01/08/2020 11:05 AM CALL CENTER AGENT with someone who was confirmed or suspected to have Coronavirus / COVID-19? documented as of this encounter Progress Notes Eloina Dunn CMA - 01/08/2020 11:00 AM CST COVID-19 PCR test completed. Patient handout For Patients Who Have Been Tested for Covid-19 (Coronavirus) was given to the patient, which includes test result notification process. CENTER AGENT documented in this encounter Plan of Treatment Not on filedocumented as of this encounter Procedures Procedure Name Priority Date/Time Associated Diagnosis Comme nts COVID-19 VIRUS Routine 01/08/2020 11:06 AM Exposure to COVID-1 9 Results for this (CORONAVIRUS) BY CALL CENTER AGENT virus procedure a re in PCR the results section. documented in this encounter Results (ABNORMAL) Symptomatic COVID-19 Virus (Coronavirus) by PCR (01/08/2020 11:06 AM CALL CENTER AGENT) Component Value Ref Test Analysis Performed At [facility] Range Method Time Signature COVID-19 Nasopharyngeal 01/08/2020 [facility] Virus PCR to 11:11 AM CLINICS [facility] - CALL CENTER AGENT [place] Source [facility] COVID-19 Detected, 01/09/2020 [facility] PCR to Abnormal Result 1:31 AM CALL CENTER AGENT [facility] - (AA) DIAGNOSTIC Result LABORATORY, [facility] Comment: Positive for 2019-nCoV. Patient sample was heat inactivated and amplified using the HDPCR SARS-CoV-2 assay ([employer] The HDPCRTM SHERLY S-CoV-2 assay is a reverse veterinary microbiologist real-time polymerase chain reaction (qRT-PCR) test intended for the qualitative detection of nucleic aci d from SARS-CoV-2 in human nasopharyngeal swabs, oropharyngeal swabs, anterior nasal swabs, mid-turbinate nasal swabs a s well as nasal aspirate, nasal wash, and bronchoalveolar lavage (BAL) specime ns from individuals who are suspected of COVID-19 by their healthcare provider . Positive results should also be reported in accordance with local, state, and federal regulations. Nasopharyngeal specimen is the preferred choice for swab-based SARS CoV2 testing. When collection of a nasopharyn geal swab is not possible the following are acceptable alternatives: an oropharyngeal (OP) specimen collected by a healthcare professional, or a nasal mid-turbinate (NMT) swab collected by a healthcare professional or by onsite self-collection (using a flocked tapered swab), or an anterior nares specimen collected by a healthcare profe ssional or by onsite self-collection (using a round foam swab). (Centers for Disease Control) Testing performed by [facility] ([facility]) [address] [facility] [address] [facility] [address] The test performance characteristics wer e determined by [facility]. It has not been cleared or approved by the FDA. The laboratory is regulated under the Cl inical Laboratory Improvement Amendments of 1988 (CLIA-88) as qualifie d to perform high-complexity testing. This test is used for clinical purposes. It should not be regarded as investigational or for research. Specimen (Source) Anatomical Collection Method Collection Time Re ceived Time Location / / Volume Laterality Specimen from 01/08/2020 11:06 01/08/2020 nasopharyngeal AM CALL CENTER AGENT 11:11 AM CALL CENTER AGENT structure (specimen) Thania Carballo APRN, CNP LAB - MICRO GENERAL ORDERAB LES Performing Organization Address City/State/ZIP Code Phon e Number [facility] [place] [address] DIAGNOSTIC LABORATORY, [address] [facility] [address] [facility] [address] [place] [address] [phone] [facility] documented in this encounter Visit Diagnoses Diagnosis Exposure to COVID-19 virus documented in this encounter Additional Health Concerns Infection Onset Date Last Indicated Resolved Time Rule Out COVID-19 01/08/2020 01/08/2020 01/09/2020 1:3 2 AM CALL CENTER AGENT Assessment Noted Time PHQ-9 Depression Total Score: 3 10/18/2019 4:20 PM CDT documented as of this encounter Care Teams Oyster Worker Relationship Specialty Start Date End Date Kleber Ledesma PCP - General Physician Offender Job Retention Specialist - 05/15/14 [facility] Kleber Ledesma Assigned PCP 09/19/17 06/01/20 [facility] [place] [address] [place] [address] Sasha Tai, RN Personal Advocate & Family Practice 11/02/19 02/14/20 Liaison (PAL) documented as of this encounter
--- OUTSIDE RECORDS SUMMARY | 2022-01-05 11:33 | XMS_ITS | Encounter Summary ---
:1960 Author Organization [facility] Address [address] [place] [address]. [place] [address] Care Team Providers Name Role Phone Kleber Ledesma PA-C Primary Care Provider [phone] Kleber Ledesma PA-C Unavailable [phone] Reason for Visit Reason Comments Sinus Problem or allergies Encounter Details Date Type Department Care Team Description 09/22/[address] [facility] Dewey Arredondo, Acute sinusitis with Clinic [place] RACHNA symptoms > 10 days [id number] [facility] [id number] [place] [address] (Primary Dx) [place] [address] [phone] Social History Tobacco Use Types Packs/Day Years [...] been in contact with No / Unsure 09/22/2019 11:26 AM CDT someone who was confirmed or suspected to have Coronavirus / COVID-19? documented as of this encounter Last Filed Vital Signs Vital Sign Reading Time Taken Comments Blood Pressure 120/77 09/22/2019 11:39 AM CDT Pulse 70 09/22/2019 11:39 AM CDT Temperature 36.6 ??C (97.9 ??F) 09/22/2019 11:39 AM CDT Respiratory Rate 12 09/22/2019 11:39 AM CDT Oxygen Saturation 99% 09/22/2019 11:39 AM CDT Inhaled Oxygen Concentration - - Weight 66.7 kg (147 lb) 09/22/2019 11:39 AM CDT Height - - Body Mass Index 26.89 11/14/2018 10:12 AM CDT documented in this encounter Patient Instructions Patient InstructionsDewey Arredondo PA-C - 09/22/2019 11:40 AM CDT Images from the original note were not included. Take the complete course of the antibiotic (augmentin). Take Zyrtec once a day until fall. Use Flonase daily. Patient Education Sinusitis (Antibiotic Treatment) The sinuses are air-filled spaces within the bones of the face. They connect to the inside of the nose.??Sinusitis??is an inflammation of the tissue that lines the sinuses. Sinusitis can occur during acold. It can also happen due to allergies to pollens and other particles in the air. Sinusitis can cause symptoms of sinus congestion and a feeling of fullness. A sinus infection causes fever, headache, and facial pain. There is often green or yellow fluid draining from the nose or into the back of the throat (post-nasal drip). You have been given antibiotics to treat this condition. Home care ?? Take the full course of antibiotics as instructed. Do not stop taking them, even when you feel better. ?? Drink plenty of water, hot tea, and other liquids. This may help thin nasal mucus. It also may help your sinuses drain fluids. ?? Heat may help soothe painful areas of your face. Use a towel soaked in hot water. Or, mine patrol the shower and direct the warm spray onto your face. Using a vaporizer along with a menthol rub at night may also help soothe symptoms.? An??expectorant??with guaifenesin may help thin nasal mucus and help your sinuses drain fluids. ?? You can use an nhnd-bjv-fflhptc??decongestant,??unless a similar medicine was prescribed to you. Nasal sprays work the fastest. Use one that contains phenylephrine or oxymetazoline. First blow your nose gently. Then use the spray. Do not use these medicines more often than directed on the label. Ifyou do, your symptoms may get worse. You may also take pills that contain pseudoephedrine. Don???t use products that combine multiple medicines. This is because side effects may be increased. Read labels. You can also ask the pharmacist for help. (People with high blood pressure should not use decongestants. They can raise blood pressure.) ?? Dcdr-foa-luteyxj??antihistamines??may help if allergies contributed to your sinusitis. ? Do not use nasal rinses or irrigation during an acute sinus infection, unless your healthcare provider tells you to. Rinsing may spread the infection to other areas in your sinuses. ?? Use acetaminophen or ibuprofen to control pain, unless another pain medicine was prescribed to you. If you have chronic liver or kidney disease or ever had a stomach ulcer, talk with your healthcareprovider before using these medicines. (Aspirin should never be taken by anyone under age 18 who is ill with a fever. It may cause severe liver damage.) ?? Don't smoke. This can make symptoms worse. Follow-up care Follow up with your healthcare provider or our staff if you are not better in 1 week. When to seek medical advice Call your healthcare provider if any of these occur: ?? Facial pain or headache that gets worse ?? Stiff neck ?? Unusual drowsiness or confusion ?? Swelling of your forehead or eyelids ?? Vision problems, such as blurred or double vision ?? Fever of??100.4??F (38??C)??or higher, or as directed by your healthcare provider ?? Seizure ?? Breathing problems ?? Symptoms don't go away in 10 days Prevention Here are steps you can take to help prevent an infection: ?? Keep good hand washing habits. ?? Don???t have close contact with people who have sore throats, colds, or other upper respiratory infections. ?? Don???t smoke, and stay away from secondhand smoke. ?? Stay up to date with of your vaccines. Date Last Reviewed: 12/09/2016 ?? [id number] [employer]. [address] [place] [address], [place] [address]. All rights reserved. This information is not intended as a substitute for professional medical care. Always follow your healthcare professional's instructions. documented in this encounter Progress Notes Mario Davis RN - 09/22/2019 11:40 AM CDT Pre-Visit Planning Future Appointments Date Time Provider Department Center 09/22/2019 11:40 AM Dewey Arredondo PA-C [facility] Arrival Time for this Appointment: 11:30 AM Appointment Notes for this encounter: AB reviewed- sinus issues Questionnaires Reviewed/Assigned No additional questionnaires are needed Patient preferred phone number: [phone] Visit Summaries: 05/08/19 last virtual visit w/ A.P. for sore throat, diarrhea, headache sx - prescribed z-pack and given Occ. Health # as patient is [employer] employee 05/08/19 COVID test negative 06/19/19 COVID test negative MyChart PVP sent 09/20/19 1046am Mario Coy RN Dewey Arredondo PA-C - 09/22/2019 11:40 AM CDT Images from the original note were not included. Subjective Amie Scott is a 59 year old female who presents to clinic today for the following health issues: HPI Acute Illness Acute illness concerns: sinus issue Onset: months ?? Fever: no ?? Chills/Sweats: no ?? Headache (location?): YES ?? Sinus Pressure:YES-drainage in the back of throat with horrible taste ?? Conjunctivitis: no ?? Ear Pain: YES- more pressure ?? Rhinorrhea: no ?? Congestion: no ?? Sore Throat: YES- on and off, not currently Wonders if she has a sinus infection or allergies. ?? Cough: YES sometomes ?? Wheeze: no ?? Decreased Appetite: no ?? Nausea: no ?? Vomiting: no ?? Diarrhea: YES ?? Dysuria/Freq.: no ?? Fatigue/Achiness: YES- extremely ?? Sick/Strep Exposure: no Therapies Tried and outcome: none, treated with azithromycin on 05/07 which did help Patient Active Problem List Diagnosis ??? CARDIOVASCULAR SCREENING; LDL GOAL LESS THAN 160 ??? Essential hypertension with goal blood pressure less than 140/90 ??? CARDIOVASCULAR SCREENING; LDL GOAL LESS THAN 130 ??? Family history of ischemic heart disease ??? Cataract ??? ACP (advance care planning) ??? Chest discomfort ??? Primary osteoarthritis of right knee ??? Post concussive syndrome ??? Mild major depression (H) Past Surgical History: Procedure Laterality Date ??? C NONSPECIFIC PROCEDURE laparoscopy by BEHAVIORAL PSYCHOLOGIST ??? CHOLECYSTECTOMY ??? COLONOSCOPY 12/31/2014 Dr. Urbano [facility] ??? COLONOSCOPY N/A 12/31/2014 Procedure: COLONOSCOPY; Surgeon: Adrianne Urbano MD; Location: [facility] ??? 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 Smoking status: Former Smoker ??? Smokeless tobacco: Never Used ??? Tobacco comment: quit smoking at 21 yrs old. smoked 2 to 2 ppd Substance Use Topics ??? Alcohol use: Yes Alcohol/week: 2.0 standard drinks Types: 1 Glasses of wine, 1 Shots of liquor per week Comment: socially Family History Problem Relation Age of Onset [...] Mother ??? Colon Cancer Maternal Grandmother 70 Current Outpatient Medications Medication Sig Dispense Refill ??? atenolol-chlorthalidone (TENORETIC) 50-25 MG tablet TAKE ONE TABLET BY MOUTH EVERY DAY 90 tablet1 ??? citalopram (CELEXA) 20 MG tablet TAKE ONE TABLET BY MOUTH EVERY DAY 90 tablet 1 ??? dicyclomine (BENTYL) 20 MG tablet Take 1 tablet (20 mg) by mouth 4 times daily as needed (abdominal cramping) 40 tablet 0 ??? simvastatin (ZOCOR) 20 MG tablet Take 1 tablet (20 mg) by mouth At Bedtime 90 tablet 2 Allergies Allergen Reactions ??? No Known Drug Allergies Reviewed and updated as needed this visit by Provider Review of Systems Constitutional, HEENT, cardiovascular, pulmonary, gi and gu systems are negative, except as otherwise noted. Objective BP 120/77 (BP Location: Right arm, Patient Position: Chair, Cuff Size: Adult Regular) Pulse 70 Temp 97.9 ??F (36.6 ??C) (Oral) Resp 12 Wt 66.7 kg (147 lb) LMP 02/22/2010 (LMP Unknown) SpO2 99% BMI 26.89 kg/m?? Body mass index is 26.89 kg/m??. Physical Exam GENERAL: healthy, alert and no distress EYES: Eyes grossly normal to inspection, PERRL and conjunctivae and sclerae normal HENT: normal cephalic/atraumatic, ear canals and TM's normal, nose and mouth without ulcers or lesions, nasal mucosa edematous , oropharynx clear and oral mucous membranes moist RESP: lungs clear to auscultation - no rales, rhonchi or wheezes CV: regular rate and rhythm, normal S1 S2, no S3 or S4, no murmur, click or rub, no peripheral edemaand peripheral pulses strong MS: no gross musculoskeletal defects noted, no edema SKIN: no suspicious lesions or rashes NEURO: Normal strength and tone, mentation intact and speech normal PSYCH: mentation appears normal, affect normal/bright LYMPH: no cervical, supraclavicular, axillary, or inguinal adenopathy Diagnostic Test Results: Results for orders placed or performed in visit on 09/22/19 (from the past 24 hour(s)) CBC with platelets differential Result Value Ref Range WBC 5.4 4.0 - 11.0 10e9/L RBC Count 4.98 3.8 - 5.2 10e12/L Hemoglobin 13.8 11.7 - 15.7 g/dL Hematocrit 42.7 35.0 - 47.0 % MCV 86 78 - 100 fl MCH 27.7 26.5 - 33.0 pg MCHC 32.3 31.5 - 36.5 g/dL RDW 13.6 10.0 - 15.0 % Platelet Count 297 150 - 450 10e9/L % Neutrophils 44.4 % % Lymphocytes 38.9 % % Monocytes 11.3 % % Eosinophils 4.8 % % Basophils 0.6 % Absolute Neutrophil 2.4 1.6 - 8.3 10e9/L Absolute Lymphocytes 2.1 0.8 - 5.3 10e9/L Absolute Monocytes 0.6 0.0 - 1.3 10e9/L Absolute Eosinophils 0.3 0.0 - 0.7 10e9/L Absolute Basophils 0.0 0.0 - 0.2 10e9/L Diff Method Automated Method Mononucleosis screen Result Value Ref Range Mononucleosis Screen Negative NEG^Negative Assessment & Plan (J01.90) Acute sinusitis with symptoms > 10 days (primary encounter diagnosis) Comment: Treat with antibiotics and Flonase. Try adding allergy medication to continue after the antibiotics to prevent this from coming back. Plan: CBC with platelets differential, Mononucleosis screen, amoxicillin-clavulanate (AUGMENTIN) 875-125 MG tablet, fluticasone (FLONASE) 50 MCG/ACT nasal spray, cetirizine (ZYRTEC) 10 MG tablet Patient Instructions Take the complete course of the antibiotic (augmentin). Take Zyrtec once a day until fall. Use Flonase daily. Patient Education Sinusitis (Antibiotic Treatment) The sinuses are air-filled spaces within the bones of the face. They connect to the inside of the nose.??Sinusitis??is an inflammation of the tissue that lines the sinuses. Sinusitis can occur during acold. It can also happen due to allergies to pollens and other particles in the air. Sinusitis can cause symptoms of sinus congestion and a feeling of fullness. A sinus infection causes fever, headache, and facial pain. There is often green or yellow fluid draining from the nose or into the back of the throat (post-nasal drip). You have been given antibiotics to treat this condition. Home care ?? Take the full course of antibiotics as instructed. Do not stop taking them, even when you feel better. ?? Drink plenty of water, hot tea, and other liquids. This may help thin nasal mucus. It also may help your sinuses drain fluids. ?? Heat may help soothe painful areas of your face. Use a towel soaked in hot water. Or, mine patrol the shower and direct the warm spray onto your face. Using a vaporizer along with a menthol rub at night may also help soothe symptoms.? An??expectorant??with guaifenesin may help thin nasal mucus and help your sinuses drain fluids. ?? You can use an ltni-ute-bxflowx??decongestant,??unless a similar medicine was prescribed to you. Nasal sprays work the fastest. Use one that contains phenylephrine or oxymetazoline. First blow your nose gently. Then use the spray. Do not use these medicines more often than directed on the label. Ifyou do, your symptoms may get worse. You may also take pills that contain pseudoephedrine. Don???t use products that combine multiple medicines. This is because side effects may be increased. Read labels. You can also ask the pharmacist for help. (People with high blood pressure should not use decongestants. They can raise blood pressure.) ?? Yexf-qyn-rzzxtjh??antihistamines??may help if allergies contributed to your sinusitis. ? Do not use nasal rinses or irrigation during an acute sinus infection, unless your healthcare provider tells you to. Rinsing may spread the infection to other areas in your sinuses. ?? Use acetaminophen or ibuprofen to control pain, unless another pain medicine was prescribed to you. If you have chronic liver or kidney disease or ever had a stomach ulcer, talk with your healthcareprovider before using these medicines. (Aspirin should never be taken by anyone under age 18 who is ill with a fever. It may cause severe liver damage.) ?? Don't smoke. This can make symptoms worse. Follow-up care Follow up with your healthcare provider or our staff if you are not better in 1 week. When to seek medical advice Call your healthcare provider if any of these occur: ?? Facial pain or headache that gets worse ?? Stiff neck ?? Unusual drowsiness or confusion ?? Swelling of your forehead or eyelids ?? Vision problems, such as blurred or double vision ?? Fever of??100.4??F (38??C)??or higher, or as directed by your healthcare provider ?? Seizure ?? Breathing problems ?? Symptoms don't go away in 10 days Prevention Here are steps you can take to help prevent an infection: ?? Keep good hand washing habits. ?? Don???t have close contact with people who have sore throats, colds, or other upper respiratory infections. ?? Don???t smoke, and stay away from secondhand smoke. ?? Stay up to date with of your vaccines. Date Last Reviewed: 12/09/2016 ?? [id number] [employer]. [address] [place] [address]. All rights reserved. This information is not intended as a substitute for professional medical care. Always follow your healthcare professional's instructions. No follow-ups on file. Dewey Arredondo PA-C [facility] documented in this encounter Plan of Treatment Not on filedocumented as of this encounter Procedures Procedure Name Priority Date/Time Associated Comments Diagnosis CBC WITH PLATELETS & Routine 09/22/2019 12:08 Acute sinusitis Results for this DIFFERENTIAL PM CDT with symptoms > 10 procedure are in days the results section. MONONUCLEOSIS SCREEN Routine 09/22/2019 12:08 Acute sinusitis Results for this PM CDT with symptoms > 10 procedure are in days the results section. documented in this encounter Results Mononucleosis screen (09/22/2019 12:08 PM CDT) [facility] [place] Method Time Signature Mononucleosis Negative NEG^Negat 09/22/2019 [place] Screen naman 12:19 PM CDT [facility] Specimen Anatomical Collection Method Collection Time Receive d Time (Source) Location / / Volume Laterality Blood specimen 09/22/2019 12:08 0 (specimen) PM CDT 12:09 PM CDT Dewey Arredondo PA-C LAB - BLOOD ORDERABLES Performing Organization Address City/State/ZIP Code Phon e Number [facility] [address] [place] [address] CBC with platelets differential (09/22/2019 12:08 PM CDT) [facility] [place] Method Time Signature WBC 5.4 4.0 - 09/22/2019 [place] 11.0 12:23 PM CDT [facility] 10e9/L [facility] RBC Count 4.98 3.8 - 5.2 09/22/2019 [place] 10e12/L 12:23 PM CDT [facility] Hemoglobin 13.8 11.7 - 09/22/2019 [facility] 15.7 g/dL 12:23 PM CDT [facility] Hematocrit 42.7 35.0 - 09/22/2019 [facility] 47.0 % 12:23 PM CDT [facility] MCV 86 78 - 100 09/22/2019 [facility] fl 12:23 PM CDT [facility] MCH 27.7 26.5 - 09/22/2019 [facility] 33.0 pg 12:23 PM CDT [facility] MCHC 32.3 31.5 - 09/22/2019 [facility] 36.5 g/dL 12:23 PM CDT [facility] RDW 13.6 10.0 - 09/22/2019 [facility] 15.0 % 12:23 PM CDT [facility] Platelet Count 297 150 - 450 09/22/2019 [facility] 10e9/L 12:23 PM CDT [facility] % Neutrophils 44.4 % 09/22/2019 [facility] 12:23 PM CDT [facility] % Lymphocytes 38.9 % 09/22/2019 [facility] 12:23 PM CDT [facility] % Monocytes 11.3 % 09/22/2019 [facility] 12:23 PM CDT [facility] % Eosinophils 4.8 % 09/22/2019 [facility] 12:23 PM CDT [facility] % Basophils 0.6 % 09/22/2019 [facility] 12:23 PM CDT [facility] Absolute 2.4 1.6 - 8.3 09/22/2019 [facility] Neutrophil 10e9/L 12:23 PM CDT [facility] Absolute 2.1 0.8 - 5.3 09/22/2019 [facility] Lymphocytes 10e9/L 12:23 PM CDT [facility] Absolute 0.6 0.0 - 1.3 09/22/2019 [facility] Monocytes 10e9/L 12:23 PM CDT [facility] Absolute 0.3 0.0 - 0.7 09/22/2019 [facility] Eosinophils 10e9/L 12:23 PM CDT [facility] Absolute 0.0 0.0 - 0.2 09/22/2019 [facility] Basophils 10e9/L 12:23 PM CDT [facility] Diff Method Automated 09/22/2019 [facility] Method 12:23 PM CDT [facility] Specimen Anatomical Collection Method Collection Time Receive d Time (Source) Location / / Volume Laterality Blood specimen 09/22/2019 12:08 0 (specimen) PM CDT 12:09 PM CDT Dewey Arredondo PA-C LAB - BLOOD ORDERABLES Performing Organization Address City/State/ZIP Code Phon e Number [facility] [address] [place] [address] documented in this encounter Visit Diagnoses Diagnosis Acute sinusitis with symptoms > 10 days - Primary Acute sinusitis, unspecified documented in this encounter Additional Health Concerns Assessment Noted Time PHQ-9 Depression Total Score: 0 05/08/2019 9:06 AM CDT documented as of this encounter Care Teams Set Up Person Relationship Specialty Start Date End Date Kleber Ledesma, PCP - General Physician Electronics Detail Draftsperson - 05/15/14 [facility] Kleber Ledesma, Assigned PCP 09/19/17 [facility] [address] [place] [address] documented as of this encounter
--- OUTSIDE RECORDS SUMMARY | 2022-01-05 11:33 | XMS_ITS | Encounter Summary ---
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
--- OUTSIDE RECORDS SUMMARY | 2022-01-05 11:33 | XMS_ITS | Encounter Summary ---
:1960 Author Organization [facility] Address [address] [place] [address]. [place] [address] Care Team Providers Name Role Phone Kleber Ledesma PA-C Primary Care Provider [phone] Kleber Ledesma PA-C Unavailable [phone] Reason for Visit Reason Onset Date Comments SB Assignment Confirmation 04/25/2020 Encounter Details Date Type Department Care Team Description 04/25/2020 Documentation Only [facility] Kleber Ledesma [facility] Donna Valderrama PA-C Confirmation [id number] [address] [facility] [place] [address] [phone] Social History Tobacco Use Types Packs/Day Years Used Date Smoking Tobacco: Former Smokeless Tobacco: Never Comments: quit smoking at 21 yrs old. sm oked 2 to 21/2 ppd Alcohol Use Standard Drinks/Week Comments Yes 2 (1 standard drink = 0.6 oz pure alcoho l) socially Sex Assigned at Date Recorded Not on file documented as of this encounter Plan of Treatment Not on filedocumented as of this encounter Visit Diagnoses Not on filedocumented in this encounter Additional Health Concerns Assessment Noted Time PHQ-9 Depression Total Score: 3 10/18/2019 4:20 PM CDT documented as of this encounter Care Teams Motorized Squad Captain Relationship Specialty Start Date End Date Kleber Ledesma PCP - General Physician Polls Or Surveys Interviewer - 05/15/14 [facility] Kleber Ledesma, Assigned PCP 09/19/17 [facility] [address] [address], [place] [address] documented as of this encounter
--- OUTSIDE RECORDS SUMMARY | 2022-01-05 11:33 | XMS_ITS | Encounter Summary ---
:1960 Author Organization [facility] Address [address] [place] [address] Care Team Providers Name Role Phone Kleber Ledesma PA-C Primary Care Provider [phone] Kleber Ledesma PA-C Unavailable [phone] Encounter Details Date Type Department Care Team Description 05/31/2020 Travel Social History Tobacco Use Types Packs/Day [...] documented as of this encounter Care Teams Developer Designer Relationship Specialty Start Date End Date Kleber Ledesma, PCP - General Physician Harnessmaker - 05/15/14 [facility] Kleber Ledesma, Assigned PCP 09/19/17 [facility] [address] [place] [address] documented as of this encounter
--- OUTSIDE RECORDS SUMMARY | 2022-01-05 11:33 | XMS_ITS | Encounter Summary ---
:1960 Author Organization [facility] Address [address] [place] [address]. [place] [address] Care Team Providers Name Role Phone Kleber Ledesma PA-C Primary Care Provider [phone] Kleber Ledesma PA-C Unavailable [phone] Sasha Tai RN Unavailable Unavailable Encounter Details Date Type Department Care Team Description 12/28/2019 Telephone [facility] Kleber Ledesma [place] PA-C [address] [facility], [address] [place] [address] [address] [place] [address] [place] [address] [phone] Social History Tobacco Use Types Packs/Day Years Used Date Smoking Tobacco: Former Smokeless Tobacco: Never Comments: quit smoking at 21 yrs old. sm oked 2 to 21/2 ppd Alcohol Use Standard Drinks/Week Comments Yes 2 (1 standard drink = 0.6 oz pure alcoho l) socially Sex Assigned at Date Recorded Not on file documented as of this encounter Miscellaneous Notes Telephone Encounter - Chris Adam Hopson - 12/28/2019 10:01 AM CST 12/28/2019 Patient Returning Call Reason for call: Patient Information relayed to patient: Yes Patient has additional questions: No What are your questions/concerns: Pt is currently out of state until the end of December and will call back once reviewing her schedule. Okay to leave a detailed message?: Yes at Cell number on file: Telephone Information: LLE AND TALKING BOOKS CLERK Telephone Encounter - Delmi Huggins - 12/28/2019 9:47 AM CST LVM for Pt to call clinic back and schedule needed physical. Xochilt Villarreal-EMT Clinic Health Guide, [place] 4 PAL LLE AND TALKING BOOKS CLERK documented in this encounter Plan of Treatment Not on filedocumented as of this encounter Visit Diagnoses Not on filedocumented in this encounter Additional Health Concerns Assessment Noted Time PHQ-9 Depression Total Score: 3 10/18/2019 4:20 PM CDT documented as of this encounter Care Teams Personnel Supervisor Relationship Specialty Start Date End Date Kleber Ledesma PCP - General Physician Line Maintainer - 05/15/14 [facility] Kleber Ledesma Assigned PCP 09/19/17 06/01/20 [facility] Valderrama [address] [place] [address] Sasha Tai, RN Personal Advocate [facility] Family Practice 11/02/19 02/14/20 Liaison (PAL) documented as of this encounter
--- OUTSIDE RECORDS SUMMARY | 2022-01-05 11:33 | XMS_ITS | Encounter Summary ---
:1960 Author Organization [facility] Address [address] [place] [address] Care Team Providers Name Role Phone Kleber Ledesma PA-C Primary Care Provider [phone] Kleber Ledesma PA-C Unavailable [phone] Encounter Details Date Type Department Care Team Description 10/18/2019 Travel Social History Tobacco Use Types Packs/Day [...] documented as of this encounter Care Teams Fish Trapper Relationship Specialty Start Date End Date Kleber Ledesma, PCP - General Physician Boiler House Supervisor - 05/15/14 [facility] Kleber Ledesma, Assigned PCP 09/19/17 R[facility] [address] [place] [address] documented as of this encounter
--- OUTSIDE RECORDS SUMMARY | 2022-01-05 11:33 | XMS_ITS | Encounter Summary ---
:1960 Author Organization [facility] Address [address] [place] [address]. [place] [address] Care Team Providers Name Role Phone Kleber Ledesma PA-C Primary Care Provider [phone] Kleber Ledesma PA-C Unavailable [phone] Sasha Tai RN Unavailable Unavailable Reason for Referral Consultation (Routine) - Closed Specialty Diagnoses / Procedures Referred By Contact Refer red To Contact Diagnoses Exposure to COVID-19 virus Thania Carballo APRN [facility] [place] [id number] [facility] [address] [phone] Referral ID Status Reason Start Date Expiration Date Visits Requ ested Visits Authorized [id number] Closed 01/06/2020 01/05/2021 1 1 T CONTROLS SPECIALIST Reason for Visit Reason Comments Fever has felt warm but no temp ta joaquim 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 Thania Carballo Viral up per respiratory tract infection (Primary Dx); Virtual Urgent Care ETHAN Duong CNP Myalgia; [address] Exposure to COVID-19 [place] [address] [id number] Social History Tobacco Use Types Packs/Day Years [...] in contact with Yes 01/06/2020 5:40 PM PLANT CONTROLS SPECIALIST someone who was confirmed or suspected to have Coronavirus / COVID-19? documented as of this encounter Progress Notes Thania Carballo, ETHAN HOSPITALITY COORDINATOR - 01/06/2020 5:40 PM CST The patient has been notified of following: This telephone visit will be conducted via a call between you and your physician/provider. We have found that certain health care needs can be provided without the need for a physical exam. This service lets us provide the care you need with a short phone conversation. If a prescription is necessary we can send it directly to your pharmacy. If lab work is needed we can place an order for that and you can then stop by our lab to have the test done at a later time. Telephone visits are billed at different rates depending on your insurance coverage. During this emergency period, for some insurers they may be billed the same as an in-person visit. Please reach out to your insurance provider with any questions. If during the course of the call the physician/provider feels a telephone visit is not appropriate, you will not be charged for this service. Patient has given verbal consent for Telephone visit? Yes What phone number would you like to be contacted at? Cell number How would you like to obtain your AVS? MyChart Subjective CC: Amie Scott is a 59 year old female who presents via phone visit today for the following health issues: Chief Complaint Patient presents with ??? Fever has felt warm but no temp taken ??? 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 Infection Concern for COVID-19 About how many days ago did these symptoms start? Yesterday on her way back from [place]. 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 Is this your first visit for this illness? Yes In the 14 days before your symptoms started, have you had close contact with someone with COVID-19 (Coronavirus)? Yes, I have been in contact with someone who has COVID-19/Coronavirus (confirmed by labtest). Do you have a fever or chills? Yes, I felt feverish or had chills Are you having new or worsening difficulty breathing? No Do you have new or worsening cough? Yes, it's a dry cough. Have you had any new or unexplained body aches? YES Have you experienced any of the following NEW symptoms? ?? Headache: YES ?? Sore throat: No ?? Loss of taste or smell: No ?? Chest pain: No ?? Diarrhea: Yes ?? Rash: No What treatments have you tried? IBU for headaches and Tylenol Who do you live with? SO, adult daughter Are you, or a household member, a healthcare worker or a nurse substance abuse? YES Do you live in a shelter, fci, or half-way? No Do you have a way to get food/medications if quarantined? Yes, I have a friend or family member who can help me. Allergies Allergen Reactions ??? No Known Drug Allergies Reviewed and updated as needed this visit by Provider Allergies Review of Systems Constitutional, HEENT, cardiovascular, pulmonary, gi and gu systems are negative, except as otherwise noted. Objective Gen: Patient is alert, oriented Assessment/Plan: Myalgia URI Please use over the counter medications to manage your symptoms. If there is chest pain and/or difficulty breathing you should go to an ER. Exposure to COVID-19 virus COVID testing ordered Phone call duration: 15 minutes Thnaia Carballo APRN CNP T CONTROLS SPECIALIST documented in this encounter Plan of Treatment Scheduled Referrals Name Type Priority Associated Diagnoses Order S chedule COVID-19 Get[facility] Loop Referral Routine Exposure to COVID-1 9 Ordered: 01/06/2020 Referral virus documented as of this encounter Results (ABNORMAL) Symptomatic COVID-19 Virus (Coronavirus) by PCR (01/08/2020 11:06 AM PLANT CONTROLS SPECIALIST) Component Value Ref Test Analysis Performed At [facility] Range Method Time Signature COVID-19 Nasopharyngeal 01/08/2020 [facility] Virus PCR to 11:11 AM CLINICS [facility] - PLANT CONTROLS SPECIALIST [place] [facility] Detected, 01/09/2020 [facility] Virus PCR to Abnormal Result 1:31 AM PLANT CONTROLS SPECIALIST [facility] - (AA) DIAGNOSTIC Result LABORATORY, [facility] Comment: Positive for 2019-nCoV. Patient sample was heat inactivated and amplified using the HDPCR SARS-CoV-2 assay (Eventdo[employer].). The HDPCRTM SHERLY S-CoV-2 assay is a reverse maintenance pipefitter real-time polymerase chain reaction (qRT-PCR) test intended [...] (Centers for Disease Control) Testing performed by [facility]) [address] [facility] [address] The test performance characteristics wer e determined [...] Specimen from 01/08/2020 11:06 01/08/2020 nasopharyngeal AM PLANT CONTROLS SPECIALIST 11:11 AM PLANT CONTROLS SPECIALIST structure (specimen) Thania Rhoda Haris AD COPY WRITER HOSPITALITY COORDINATOR LAB - MICRO GENERAL ORDERAB LES Performing Organization Address City/State/ZIP Code Phon e Number [place] [address] DIAGNOSTIC LABORATORY, [address] [facility] [address] [place] [address] [facility] documented in this encounter Visit Diagnoses Diagnosis Viral upper respiratory tract infection - Primary Acute upper respiratory infections of un specified site Myalgia Mylagia and myositis, unspecified Exposure to COVID-19 virus documented in this encounter Additional Health Concerns Assessment Noted Time PHQ-9 Depression Total Score: 3 10/18/2019 4:20 PM CDT documented as of this encounter Care Teams Merchandise Presentation Manager Relationship Specialty Start Date End Date Kleber Ledesma PCP - General Physician Flake Or Shred Roll Operator - 05/15/14 [facility] Medical Kleber Ledesma Assigned PCP 09/19/17 06/01/20 RACHNA Valderrama [address] [place] [address] Sasha Tai, RN Personal Advocate & Family Practice 11/02/19 02/14/20 Liaison (PAL) documented as of this encounter
--- OUTSIDE RECORDS SUMMARY | 2022-01-05 11:33 | XMS_ITS | Encounter Summary ---
:1960 Author Organization [facility] Address [address] [place] [address] Care Team Providers Name Role Phone Kleber Ledesma PA-C Primary Care Provider [phone] Kleber Ledesma PA-C Unavailable [phone] Reason for Visit Reason Comments ER F/U 05/29/20 Encounter Details Date Type Department Care Team Description 05/31/2020 Office Visit [facility] Junie Rm E, Other superficial bite of ankle, left ankle, subsequent encounter (Primary Dx); Clinic Donna [facility]COE Cellulitis of left lower extremity [address] [address] [address] [address], [place] [address] [address] [place] [address] (Wo rk) Social History Tobacco Use Types [...] Sign Reading Time Taken Comments Blood Pressure 108/64 05/31/2020 10:26 AM CDT Pulse 84 05/31/2020 10:26 AM CDT Temperature 36.8 ??C (98.3 ??F) 05/31/2020 10:26 AM CDT Respiratory Rate 16 05/31/2020 10:26 AM CDT Oxygen Saturation 98% 05/31/2020 10:26 AM CDT Inhaled Oxygen Concentration - - Weight 65.8 kg (145 lb) 05/31/2020 10:26 AM CDT Height 157.5 cm (5' 2) 05/31/2020 10:26 AM CDT Body Mass Index 26.52 05/31/2020 10:26 AM CDT documented in this encounter Patient Instructions Patient InstructionsJunie Rm PA-C - 05/31/2020 10:20 AM CDT Concern with worsening infection despite being on oral antibiotics. I would like you to go to the [facility] for further evaluation of this. documented in this encounter Progress Notes Junie Rm PA-C - 05/31/2020 10:20 AM CDT Images from the original note were not included. Assessment & Plan Other superficial bite of ankle, left ankle, subsequent encounter Cellulitis of left lower extremity Concerned with infected bite, suspected cat bite, worsening on oral antibiotics. There was some concern that possibly this was a bat bite but she feels fairly confident it was cat bite. Her cat is not immunized but cat does not go outside. Given spreading redness, exquisite tenderness, recommend further evaluation in ER today, likely IV antibiotics due to failed oral antibiotics. She appears well, non-toxic, afebrile. Agrees to go to ER. Return in about 1 month (around 06/30/2020) for Preventive Physical Exam. Junie Rm PA-C [facility] Kimo Holloway is a 60 year old who presents for the following health issues HPI ED/UC Followup: Facility: [facility] Date of visit: 05/29/20 Reason for visit: Left ankle pain Current Status: swelling is increasing, the redness is getting worse. On Wednesday night, she was sleeping and woke up and noticed that her cat was playing with her left foot. She went back to sleep and woke up a little while later and noticed pain on the lateral left ankle. She then noticed 2 puncture de luna on the ankle with bleeding. She does not recall her cat biting her but thinks this is what happened. Her cat is not immunized but is an indoor cat and does not go outside. She was seen in urgent care later that day for worsening ankle pain and redness. While at urgent care, there was concern for a possible bat bite and [facility] and went to [facility] where they said it did not look like a bat bite but like a cat bite. She was started on Augmentin and sent home. Since then, she has been taking the Augmentin twice daily (dose Wednesday night, 2 doses yesterday, 1 dose this morning), but the redness, swelling, and pain is worsening. Significant pain with any movement of the ankle, walking is painful. No fever, chills. She believes it was her cat that bit her, they have not had issues with bats in their home, they have not seen a bat. Review of Systems Constitutional, HEENT, cardiovascular, pulmonary, gi and gu systems are negative, except as otherwise noted. Objective BP 108/64 (BP Location: Left arm, Patient Position: Sitting, Cuff Size: Adult Regular) Pulse 84 Temp 98.3 ??F (36.8 ??C) (Oral) Resp 16 Ht 1.575 m (5' 2) Wt 65.8 kg (145 lb) LMP 02/22/2010(LMP Unknown) SpO2 98% BMI 26.52 kg/m?? Body mass index is 26.52 kg/m??. Physical Exam GENERAL: healthy, alert and no distress NECK: no adenopathy RESP: lungs clear to auscultation - no rales, rhonchi or wheezes CV: regular rate and rhythm, normal S1 S2, no S3 or S4, no murmur, click or rub, no peripheral edemaand peripheral pulses strong MS: Swelling to left lateral ankle with exquisite tenderness to palpation of the lateral ankle. Painlimits active and passive ROM in all directions. SKIN: see below. Area of erythema is extending up into calf. NEURO: Normal strength and tone, mentation intact and speech normal PSYCH: mentation appears normal, affect normal/bright documented in this encounter Plan of Treatment Not on filedocumented as of this encounter Visit Diagnoses Diagnosis Other superficial bite of ankle, left an kle, subsequent encounter - Primary Cellulitis of left lower extremity Cellulitis and abscess of leg, except fo ot documented in this encounter Additional Health Concerns Assessment Noted Time PHQ-9 Depression Total Score: 2 05/31/2020 10:50 AM CD T documented as of this encounter Care Teams Electrical Accessories Assembler Relationship Specialty Start Date End Date Kleber Ledesma, PCP - General Physician Manager Er - 05/15/14 [facility] Kleber Ledesma, Assigned PCP 09/19/17 [facility] [address] [place] [address] documented as of this encounter
--- OUTSIDE RECORDS SUMMARY | 2022-01-05 11:34 | XMS_ITS | Encounter Summary ---
:1960 Author Organization [facility] Address [address] [place] [address] Care Team Providers Name Role Phone Kleber Ledesma PA-C Primary Care Provider [phone] Kleber Ledesma PA-C Unavailable [phone] Encounter Details Date Type Department Care Team Description 06/19/2019 Travel Social History Tobacco Use Types Packs/Day [...] documented as of this encounter Care Teams Superintendent Pipelines Relationship Specialty Start Date End Date Kleber Ledesma, PCP - General Physician Tufting Machine Operator - 05/15/14 [facility] Kleber Ledesma, Assigned PCP 09/19/17 [facility] [address] [place] [address] documented as of this encounter
--- OUTSIDE RECORDS SUMMARY | 2022-01-05 11:34 | XMS_ITS | Encounter Summary ---
:1960 Author Organization [facility] Address [address] [place] [id number] Care Team Providers Name Role Phone Kleber Ledesma PA-C Primary Care Provider [phone] Kleber Ledesma PA-C Unavailable Reason for Referral Consultation - Closed Specialty Diagnoses / Procedures Referred By Contact Refer red To Contact Podiatry Diagnoses Cellulitis of great toe, right Xin Vang MD [facility] [address] [place], [place] [address] [address] [place] [address] Phone: Fax: Referral ID Status Reason Start Date Expiration Date Visits Requ ested Visits Authorized [id number] Closed 04/30/2018 04/30/2019 1 1 Reason for Visit Reason Comments Urgent Care Fungal Infection left big toe has a toenail f ungus, was prescribed antifungal by podiatry and has them remove it - did not start meds. Now there is pus on toenail and nail is p eeling up Dental Pain pain in right side of jaw, v arjun painful to open mouth x 1wk Encounter Details Date Type Department Care Team Description 04/30/2018 Office Visit [facility] Xin Vang Cellulit is of great toe, right (Primary Dx); Urgent Care MD [facility] Hyperlipidemia with target LDL less than 130; [facility] [address] TMJ (sprain of temporomandibular joint), initial encounter [id number] [place] [id number] Social History Tobacco Use Types Packs/Day Years Used Date Smoking Tobacco: Former Smokeless Tobacco: Never Comments: quit smoking at 21 yrs old. sm oked 2 to 21/2 ppd Alcohol Use Standard Drinks/Week Comments Yes 2 (1 standard drink = 0.6 oz pure alcoho l) socially Sex Assigned at Date Recorded Not on file documented as of this encounter Last Filed Vital Signs Vital Sign Reading Time Taken Comments Blood Pressure 112/64 04/30/2018 8:11 AM CDT Pulse 56 04/30/2018 8:11 AM CDT Temperature 36.4 ??C (97.6 ??F) 04/30/2018 8:11 AM CDT Respiratory Rate 12 04/30/2018 8:11 AM CDT Oxygen Saturation 100% 04/30/2018 8:11 AM CDT Inhaled Oxygen Concentration - - Weight 63.5 kg (140 lb) 04/30/2018 8:11 AM CDT Height 157.5 cm (5' 2) 04/30/2018 8:11 AM CDT Body Mass Index 25.61 04/30/2018 8:11 AM CDT documented in this encounter Patient Instructions Patient InstructionsXin Vang MD - 04/30/2018 8:05 AM CDT Images from the original note were not included. Patient Education Nail Fungal Infection A nail fungal infection changes the way fingernails and toenails look. They may thicken, discolor, change shape, or split. This condition is hard to treat because nails grow slowly and have limited blood supply. The infection often comes back after treatment. There are 2 types of medicines used to treat this condition: ?? Topical anti-fungal medicines. These are applied to the surface of the skin and nail area. These medicines are not very effective because they can???t get deep into the nail. ?? Oral antifungal medicines. These medicines work better because they go into the nail from the inside out. But the infection may still come back. It may take 9 to 12 months for your nail to look normal again. This means you are cured. You can repeat treatment if needed. Most people take these medicines without any problems. It is rare to stop therapy because of side effects. But your healthcare provider may give you some monitoring tests. Talk about possible side effects with your provider before starting treatment. If medicines fail, the nail can be removed surgically or chemically. These methods physically removethe fungus from the body. This helps medical treatment be more effective. Home care ?? Use medicines exactly as directed for as long as directed. Treating a fungal infection can take longer than other kinds of infections. ?? Smoking is a risk factor for fungal infection. This is one more reason to quit. ?? Wear absorbent socks, and shoes that let your feet breathe. Sweaty feet increase your risk of fungal infection. They also make an existing infection harder to treat. ?? Use footwear when in damp public places like swimming pools, gyms, and shower rooms. This will help you avoid the fungus that grows there. ?? Don't share nail clippers or scissors with others. Follow-up care Follow up with your healthcare provider, or as advised. When to seek medical advice Call your healthcare provider right away if any of these occur: ?? Skin by the nail becomes red, swollen, painful, or drains pus (a creamy yellow or white liquid) ?? Side effects from oral anti-fungal medicines Date Last Reviewed: 09/09/2015 ?? [id number] [employer]. [address] [place] [address], [place] [address]. All rights reserved. This information is not intended as a substitute for professional medical care. Always follow your healthcare professional's instructions. Patient Education Pain Relief Methods for Temporomandibular Disorders (TMD) You have been diagnosed with temporomandibular disorder (TMD). This term describes a group of problems related to the temporomandibular joint (TMJ)??and nearby muscles. The TMJ is located where the upper and lower jaws meet. TMD can cause painful and frustrating symptoms. But your healthcare provider can recommend various pain relief methods as part of your treatment. These may include medicines and certain types of therapy, such as massage or gentle exercise. Using medicines Medicines may be prescribed to treat TMD. Others may be available over the counter. The medicine type and dosage will depend on the problem you have. For your safety, tell your healthcare provider if you are currently taking any medicines. Also mention any vitamins, herbs, or supplements you are using. Common medicines used to treat TMD include: ?? Anti-inflammatories and analgesics. These??treat pain, inflammation, osteoarthritis, and rheumatoid arthritis. Anti-inflammatories reduce swelling, heat, redness, and pain. They also help restore function. Analgesics reduce pain. Nonsteroidal anti-inflammatories (NSAIDs) relieve inflammation as well as pain. ?? Muscle relaxants. These??treat myofascial pain. This is pain that occurs in the soft tissues or muscles around the TMJ. Muscle relaxants help ease muscle tension. This reduces pressure on the TMJ from tight jaw muscles. ?? Antidepressants.??These??can be used to reduce pain or teeth grinding (bruxism). At higher dosages, these medicines are used to treat depression. Given at low dosages, antidepressants help relieve TMD symptoms. They can reduce muscle pain. They also raise the level of serotonin, a body chemical that improves sleep. This in turn can decrease bruxism during the night. Treating painful muscles A trigger point is a painful spot in a tight muscle. It is often painful to the touch and may refer pain to other places. Your healthcare provider can focus on trigger points using: ?? Massage,??both inside and outside the mouth. This relaxes muscles and improves circulation. ?? Palpation,??which is applying pressure to points of the jaw and face with the fingers. ?? Cold spray??and stretching of the muscles to relax them. ?? An anesthetic??for pain relief. This may be given as an injection by your dentist. Treating the joint Therapy may focus directly on the TMJ. There are different ways to treat the joint: ?? A self-care program??helps you treat and manage symptoms on your own. Your program may include exercises. It may also include using ice and heat to relieve pain. ?? Gentle manipulation??reduces pain and restores range of motion. The healthcare provider uses his or her hands to relax muscles and ligaments around the joint. ?? Exercises??strengthen muscles in the jaw and face. ?? Ultrasound??uses sound waves to reduce pain and swelling. It also improves pain and swelling. Treating inflammation When the joint is inflamed, movement becomes difficult. It is even impossible at times. Your healthcare provider can help. Treatment may include: ?? Rest and gentle exercise. This is done to increase range of motion. One common exercise is to apply pressure to the jaw and resist the movement (isometric exercise). ?? A cold pack. This eases swelling and reduces pain. A cold pack may be applied for??10 to 20 minutes. Repeat 3 or 4 times a day.??To make a cold pack, put ice cubes in a plastic bag that seals at thetop. Wrap the bag in a clean, thin towel or cloth. Never put ice or a cold pack directly on the skin. ?? Massage and gentle manipulation. ??As described above. ?? Date Last Reviewed: 09/08/2016 ?? [id number] [employer]. [address] [place] [address]. All rights reserved. This information is not intended as a substitute for professional medical care. Always follow your healthcare professional's instructions. documented in this encounter Progress Notes Xin Vang MD - 04/30/2018 8:05 AM CDT SUBJECTIVE: Chief Complaint Patient presents with ??? Urgent Care ??? Fungal Infection left big toe has a toenail fungus, was prescribed antifungal by podiatry and has them remove it - did not start meds. Now there is pus on toenail and nail is peeling up ??? Dental Pain pain in right side of jaw, very painful to open mouth x 1wk Amie Scott is a 58 year old female who presents complaining of right foot first digit pain. Shehas noted purulent drainage, throbbing, from under the toenail. She was told she had toe fungus 1 year ago, giving Rx of Lamisil, but she decided to not take the RX due to potential serious side effects . Her nail of the right great toe has been mostly detached for Years, with 2/3 of the nail loose, only attached at the base. Severity: moderate. She denies any trauma to the area. No fevers or chills noted. No migration of redness or swelling proximal Amie also presents with 1 week history of continuous right jaw pain which is localized to just in front of the right ear(s) and aching in the region of right massater muscle. symptoms have increased over the last 3 days. Associated symptoms include: tenderness and pain. denies nasal congestion, upper dental pain, fever and headache. Exacerbating activities include: chewing and moving the jaw. Has appt. With her dentist in the coming week to evaluate if she has a dental infection. has not taken any OTC remedies for relief. Also- She ran out of her simvastatin today- Wanted to get RX refill until primary care can approve her refill- No adverse symptoms taking the simvastatin Past Medical History: Diagnosis Date ??? Chest discomfort ??? High cholesterol ??? Hypertension ??? Moderate persistent asthma 2005 cold air trigger Patient Active Problem List Diagnosis ??? CARDIOVASCULAR SCREENING; LDL GOAL LESS THAN 160 ? ? Hypertension goal BP (blood pressure) < 140/90 ??? CARDIOVASCULAR SCREENING; LDL GOAL LESS THAN 130 ??? Family history of ischemic heart disease ??? Cataract ??? ACP (advance care planning) ??? Chest discomfort ??? Primary osteoarthritis of right knee ??? Post concussive syndrome ALLERGIES: No known drug allergies Current Outpatient Medications on File Prior to Visit: albuterol (PROAIR HFA/PROVENTIL HFA/VENTOLIN HFA) 108 (90 Base) MCG/ACT inhaler Inhale 2 puffs into the lungs every 6 hours as needed for shortness of breath / dyspnea or wheezing (cough) albuterol (PROVENTIL) (2.5 MG/3ML) 0.083% neb solution Take 1 vial (2.5 mg) by nebulization 3 times daily as needed for shortness of breath / dyspnea or wheezing atenolol-chlorthalidone (TENORETIC) 50-25 MG per tablet TAKE ONE TABLET BY MOUTH EVERY DAY citalopram (CELEXA) 20 MG tablet Take 1 tablet (20 mg) by mouth daily Coenzyme Q10 (CO Q 10 PO) Take 100 mg by mouth 2 times daily FOLIC ACID PO Take 1 mg by mouth daily Ginkgo Biloba 40 MG TABS Take 120 mg by mouth daily meloxicam (MOBIC) 7.5 MG tablet Take 1 tablet (7.5 mg) by mouth daily Multiple Vitamins-Minerals (OCUVITE PO) Take 1 tablet by mouth daily Start-3 Fatty Acids (OMEGA-3 FISH OIL PO) Take 2.4 g by mouth daily order for DME Equipment being ordered: nebulizer simvastatin (ZOCOR) 20 MG tablet TAKE ONE TABLET BY MOUTH AT BEDTIME [] amoxicillin-clavulanate (AUGMENTIN) 875-125 MG tablet Take 1 tablet by mouth 2 times dailyfor 10 days aspirin 81 MG tablet Take 81 mg by mouth daily benzonatate (TESSALON) 100 MG capsule Take 1 capsule (100 mg) by mouth 3 times daily as needed for cough (Patient not taking: Reported on 01/13/2018) CALCIUM CARBONATE PO Take 2,400 mg by mouth daily Cholecalciferol (VITAMIN D3 PO) Take 2,000 Units by mouth daily citalopram (CELEXA) 10 MG tablet Take 1 tablet (10 mg) by mouth daily (Patient not taking: Reported on 04/30/2018) oxybutynin (DITROPAN XL) 5 MG 24 hr tablet Take 1 tablet (5 mg) by mouth daily (Patient not taking: Reported on 01/10/2018) vitamin E (VITAMIN E) 200 UNIT capsule Take 400 Units by mouth daily No current facility-administered medications on file prior to visit. Social History Tobacco Use ??? Smoking status: Former Smoker ??? Smokeless tobacco: Never Used ??? Tobacco comment: quit smoking at 21 yrs old. smoked 2 to /2 ppd Substance Use Topics ??? Alcohol use: Yes Alcohol/week: 1.2 oz Types: 1 Glasses of wine, 1 Shots [...] Mother ??? Colon Cancer Maternal Grandmother 70 ROS: CONSTITUTIONAL:NEGATIVE for fever, chills, EYES: NEGATIVE for vision changes or irritation RESP:NEGATIVE for significant cough or SOB GI: NEGATIVE for nausea, abdominal pain, OBJECTIVE: BP 112/64 (BP Location: Right arm, Patient Position: Sitting, Cuff Size: Adult Regular) Pulse 56 Temp 97.6 ??F (36.4 ??C) (Tympanic) Resp 12 Ht 1.575 m (5' 2) Wt 63.5 kg (140 lb) LMP 02/22/2010 (LMP Unknown) SpO2 100% ? No BMI 25.61 kg/m?? GENERAL: Alert, mild distress ENT: External ears and canals clear bilaterally. TM's normal bilaterally. Nose normal without lesions or discharge. Oropharynx normal. Jaw shows tenderness to palpation and no crepitation in the right TMJ , mild tenderness masseter muscle on right . The pain in the TMJ is worse with movement and ROM of the jaw. No unusual dental wearpattern- No gingival swelling or pain with percussion of teeth NECK: supple without palpable adenopathy. .normal pain free ROM EYES: EOMI, conjunctiva clear RESP: no labored respirations, no tachypnea NEURO: Normal strength and tone, normal speech and mentation SKIN: no suspicious lesions or rashes PSYCH: mentation and affect appears normal and patient appearance--appropriately groomed RIGHT FOOT-- great toe with toenail loose, attached about 6 mm at the base, pain with movement of the nail and purulent/ serous drainage from under the nail. Pain with pressure on the nail ASSESSMENT: Cellulitis of great toe, right - amoxicillin-clavulanate (AUGMENTIN) 875-125 MG tablet; Take 1 tablet by mouth 2 times daily - PODIATRY/FOOT & ANKLE SURGERY REFERRAL She said she does not want to take prolonged antifungal- Discussed that insurance may not cover Rx Warm water soaks, Add A little bleach to the water Hyperlipidemia with target LDL less than 130 - simvastatin (ZOCOR) 20 MG tablet; Take 1 tablet (20 mg) by mouth At Bedtime Given 1 month refill until she can follow-up with primary care TMJ (sprain of temporomandibular joint), initial encounter Patient was reassured that there is no infection or damage in the ear canals. We discussed that most acute injuries to the TMJ joint will gradually resolve with rest, avoiding movements that aggravate the pain and treatment with anti inflammatories like ibuprofen. Chronic TMJ pain, which may be associated with jaw clenching and/or night-time grinding of the teeth may require use of a dental appliance to be worn at night. If the TMJ pain does not spontaneously resolve within 3 weeks consider further evaluation and treatment with their dentist and/or ENT. (she has dental appt. In a week) Symptomatic treatment with acetaminophen/ ibuprofen Patient education materials were provided documented in this encounter Plan of Treatment Scheduled Referrals Name Type Priority Associated Diagnoses Order S chedule PODIATRY/FOOT & ANKLE Referral Routine Cellulitis of great toe, Ordered: 04/30/2018 SURGERY REFERRAL right documented as of this encounter Visit Diagnoses Diagnosis Cellulitis of great toe, right - Primary Cellulitis and abscess of toe, unspecifi ed Hyperlipidemia with target LDL less than 130 Other and unspecified hyperlipidemia TMJ (sprain of temporomandibular joint), initial encounter documented in this encounter Additional Health Concerns Assessment Noted Time PHQ-9 Depression Total Score: 2 01/14/2018 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
--- OUTSIDE RECORDS SUMMARY | 2022-01-05 11:34 | XMS_ITS | Encounter Summary ---
:1960 Author Organization [facility] Address [address] [place] [address]. [place] [address] Care Team Providers Name Role Phone Kleber Ledesma PA-C Primary Care Provider [phone] Kleber Ledesma PA-C Unavailable [phone] Reason for Visit Reason Comments Abdominal Pain Encounter Details Date Type Department Care Team Description 06/01/2018 Office Visit [facility] Kleber Ledesma Change in bowel habits (Primary Dx); [facility] [place] [facility]NA Valderrama Diarrhea, unspecified type; [place] [id number] [facility] Abdominal cramping [facility], [address] [place] [address] [place], [place] [phone] (Wo rk) [phone] Social History Tobacco Use Types Packs/Day Years [...] Sign Reading Time Taken Comments Blood Pressure 106/60 06/01/2018 2:45 PM CDT Pulse 58 06/01/2018 2:45 PM CDT Temperature 36.8 ??C (98.2 ??F) 06/01/2018 2:45 PM CDT Respiratory Rate 14 06/01/2018 2:45 PM CDT Oxygen Saturation - - Inhaled Oxygen Concentration - - Weight 63.5 kg (140 lb) 06/01/2018 2:45 PM CDT Height - - Body Mass Index 25.61 04/30/2018 8:11 AM CDT documented in this encounter Progress Notes Kleber Ledesma PA-C - 06/01/2018 2:40 PM CDT SUBJECTIVE: Amie Scott is a 58 year old female who presents to clinic today for the following health issues: ABDOMINAL PAIN ?? Onset: 4 weeks ?? Description: Character: Sharp and Cramping Location: epigastric region right lower quadrant left lower quadrant Radiation: None ?? Intensity: moderate, severe ?? Progression of Symptoms: same, constant and intermittent ?? Accompanying Signs & Symptoms: Fever/Chills?: no Gas/Bloating: YES Nausea: YES Vomitting: no Diarrhea?: YES Constipation:YES- maybe Dysuria or Hematuria: no ?? History: Trauma: no Previous similar pain: YES- lactose intolerant, having really skinny stools Previous tests done: Colonoscopy ?? Precipitating factors: Does the pain change with: Food: YES BM: YES- felt relief last night Urination: no ?? Alleviating factors: Diarrhea last night ?? Therapies Tried and outcome: pepto bismol for upper gi - did help one time ?? LMP: not applicable Normal bowel movements usually, but now having small, skinny BMs x 1month. Described thickness equal to her finger. Occasional diarrhea. Hasn't had normal BM in 4 weeks. Complains of intermittent, severe cramps and nausea. Denies vomiting. Cramping resolves spontaneously usually after a bout of phillip rrhea. Took Augmentin BID last month x10 days for cellultitis, but did not have concerns with BMs while on ABX. Denies any other medication or diet changes. States at times BMs are yellow & mucus. Denies blood in the stool or external hemorrhoid symptoms. However, states she noticed bright red blood on toliet paper twice. Colonscopy completed in 2014 which showed diverticulosis in the sigmoid colon and in the descending colon, external and internal hemorrhoids, and the examination was otherwise normal. Chest/ Epigastric Discomfort Intermittent pain in upper chest/ epigastric region. Had similar pain in the past-states she is unsure what caused it. Tried pepto bismol twice, worked once for symptom improvemnt & did not work the other time. Pain radiates to the back. Also, intermittent pain in back with inspiration. Cannot link trigger to pain. States she is lactose intolerant, but eats a lot of cheese. Additional history: as documented Reviewed and updated as needed this visit by clinical staff Tobacco Allergies Meds Med Hx Surg Hx Fam Hx Soc Hx Reviewed and updated as needed this visit by Provider BP Readings from Last 3 Encounters: 06/01/18 106/60 04/30/18 112/64 03/07/18 117/71 Wt Readings from Last 3 Encounters: 06/01/18 63.5 kg (140 lb) 04/30/18 63.5 kg (140 lb) 03/07/18 63.5 kg (140 lb) ROS: Constitutional, HEENT, cardiovascular, pulmonary, gi and gu systems are negative, except as otherwise noted. OBJECTIVE: BP 106/60 (BP Location: Right arm, Patient Position: Sitting, Cuff Size: Adult Regular) Pulse 58 Temp 98.2 ??F (36.8 ??C) (Oral) Resp 14 Wt 63.5 kg (140 lb) LMP 02/22/2010 (LMP Unknown) BMI25.61 kg/m?? Body mass index is 25.61 kg/m??. GENERAL: healthy, alert and no distress CV: regular rate and rhythm, normal S1 S2, no S3 or S4, no murmur, click or rub, no peripheral edemaand peripheral pulses strong ABDOMEN: mild tenderness with palpation in all quadrants and epigastric region. soft, no hepatosplenomegaly, no masses and bowel sounds normal MS: no gross musculoskeletal defects noted, no edema NEURO: Normal tone, mentation intact and speech normal PSYCH: mentation appears normal, affect normal/bright Diagnostic Test Results: none ASSESSMENT/PLAN: 1. Change in bowel habits Change may be due to recent ABX use. Will start with stool test to r/o c.diff. If stool testing normal, will consider colonscopy and/ or GI consult to r/o other more serious causes. Her screening colonoscopy in 2014 was normal. - Clostridium difficile Toxin B PCR; Future - Enteric Bacteria and Virus Panel by [facility] Stool; Future 2. Diarrhea, unspecified type Could try Bentyl for diarrhea & cramping - dicyclomine (BENTYL) 20 MG tablet; Take 1 tablet (20 mg) by mouth 4 times daily as needed (abdominal cramping) Dispense: 40 tablet; Refill: 0 - Clostridium difficile Toxin B PCR; Future - Enteric Bacteria and Virus Panel by [facility] Stool; Future 3. Abdominal cramping Could try Bentyl for diarrhea & cramping. Avoid food triggers. - dicyclomine (BENTYL) 20 MG tablet; Take 1 tablet (20 mg) by mouth 4 times daily as needed (abdominal cramping) Dispense: 40 tablet; Refill: 0 - Clostridium difficile Toxin B PCR; Future - Enteric Bacteria and Virus Panel by [facility] Stool; Future FUTURE APPOINTMENTS: - Follow-up visit in 1 week if symptoms worsen or fail to improve DENTON STUART, MALE INFERTILITY SPECIALIST Student Kleber Ledesma PA-C [facility] documented in this encounter Plan of Treatment Not on filedocumented as of this encounter Visit Diagnoses Diagnosis Change in bowel habits - Primary Other symptoms involving digestive syste m Diarrhea, unspecified type Abdominal cramping Abdominal pain, unspecified site documented in this encounter Additional Health Concerns Assessment Noted Time PHQ-9 Depression Total Score: 2 01/14/2018 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
--- OUTSIDE RECORDS SUMMARY | 2022-01-05 11:34 | XMS_ITS | Encounter Summary ---
:1960 Author Organization [facility] Address [address] [place] [address] Care Team Providers Name Role Phone Kleber Ledesma PA-C Primary Care Provider [phone] Kleber Ledesma PA-C Unavailable [phone] Sasha Tai RN Unavailable Unavailable Junie Rm PA-C Unavailable Patricia Brown RN Unavailable Kleber Ledesma PA-C Unavailable [phone] Encounter Details Date Type Department Care Team Description 05/08/2019 Office Visit - [address] [address] Social History Tobacco Use Types Packs/Day Years [...] documented as of this encounter Progress Notes Kane Shaw, ETHAN GROUNDSKEEPING MAINTENANCE WORKER - 05/08/2019 2:00 PM CDT SUBJECTIVE: Here for curbside evaluation for COVID-19 referred through [facility]. Confirmed [facility] with name and date of for specimen collection. Patient reports no new symptoms. OBJECTIVE: In no apparent distress Eyes appear normal Mucous membranes moist Non diaphoretic No increased work of breathing Mental status appears normal/affect normal 1. Cough Over the counter meds and isolation discussed until results in from [facility] team. Brief education provided. Time of visit was 15 minutes more than half in coordination of care and counseling regarding COVID and self-isolation. 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 COVID-19 01/08/2020 01/08/2020 01/29/2020 11:40 PM HOSPITAL FOOD SERVICE WORKER Assessment Noted Time PHQ-9 Depression Total Score: 0 05/08/2019 9:06 AM CDT documented as of this encounter Care Teams Inventory Clerk Relationship Specialty Start Date End Date Kleber Ledesma PCP - General Physician Coordinate Measuring Machine Technician - 05/15/14 [facility] Kleber Ledesma Assigned PCP 09/19/17 06/01/20 [facility] [address] [place] [address] Sasha Tai RN Personal Advocate & Family Practice 11/02/19 02/14/20 Liaison (PAL) Junie Rm, Assigned PCP 06/02/20 06/08/20 [facility] [address] [place] [address] Patricia Brown RN Clinic Customer Sales Service Manager 06/03/20 06/03/20 Kleber Ledesma Assigned PCP 06/09/20 R[facility] Valderrama [address] [place] [address] documented as of this encounter
--- OUTSIDE RECORDS SUMMARY | 2022-01-05 11:34 | XMS_ITS | Encounter Summary ---
:1960 Author Organization [facility] Address [address] [place] [address]. [place] [address] Care Team Providers Name Role Phone Kleber Ledesma PA-C Primary Care Provider [phone] Kleber Ledesma PA-C Unavailable [phone] Encounter Details Date Type Department Care Team Description 11/14/2018 Travel Social History Tobacco Use Types Packs/Day [...] Assessment Noted Time PHQ-9 Depression Total Score: 7 10/24/2018 11:20 AM CD T documented as of this encounter Care Teams Circulating Nurse Relationship Specialty Start Date End Date Kleber Ledesma, PCP - General Physician Watch Crystal Edge Grinder - 05/15/14 [facility] Kleber Ledesma, Assigned PCP 09/19/17 [facility] [address] [place] [address] documented as of this encounter
--- OUTSIDE RECORDS SUMMARY | 2022-01-05 11:34 | XMS_ITS | Encounter Summary ---
:1960 Author Organization [facility] Address [address] [place] [address] Care Team Providers Name Role Phone Kleber Ledesma PA-C Primary Care Provider [phone] Kleber Ledesma PA-C Unavailable [phone] Kleber Ledesma PA-C Unavailable [phone] Encounter Details Date Type Department Care Team Description 03/07/2018 Travel Social History Tobacco Use Types Packs/Day [...] Depression Total Score: 2 01/14/2018 7:03 AM DRY CLIPPER TENDER documented as of this encounter Care Teams Box Car Checker Relationship Specialty Start Date End Date Kleber Ledesma PCP - General Physician Spinal Surgeon - 05/15/14 [facility] Kleber Ledesma, PCP - Assigned PCP 09/19/17 04/12/18 [facility] [address] [place] [address] Kleber Ledesma, Assigned PCP 09/19/17 [facility] [address] [place], [place] [address] documented as of this encounter
--- OUTSIDE RECORDS SUMMARY | 2022-01-05 11:34 | XMS_ITS | Encounter Summary ---
:1960 Author Organization [facility] Address [address] [place] [address] Care Team Providers Name Role Phone Kleber Ledesma PA-C Primary Care Provider [phone] Kleber Ledesma PA-C Unavailable [phone] Encounter Details Date Type Department Care Team Description 05/06/2019 Travel Social History Tobacco Use Types Packs/Day [...] been in contact with No / Unsure 05/06/2019 5:39 PM CDT someone who was confirmed or suspected to have Coronavirus / COVID-19? documented as of this encounter Plan of Treatment Not on filedocumented as of this encounter Visit Diagnoses Not on filedocumented in this encounter Additional Health Concerns Assessment Noted Time PHQ-9 Depression Total Score: 7 10/24/2018 11:20 AM CD T documented as of this encounter Care Teams De Icer Finisher Relationship Specialty Start Date End Date Kleber Ledesma, PCP - General Physician Weigher Alloy - 05/15/14 [facility] Kleber Ledesma, Assigned PCP 09/19/17 [facility] [address] [place] [address] documented as of this encounter
--- OUTSIDE RECORDS SUMMARY | 2022-01-05 11:34 | XMS_ITS | Encounter Summary ---
:1960 Author Organization [facility] Address [address] [place] [address]. [place] [address] Care Team Providers Name Role Phone Kleber Ledesma PA-C Primary Care Provider [phone] Kleber Ledesma PA-C Unavailable [phone] Encounter Details Date Type Department Care Team Description 10/24/2018 Travel Social History Tobacco Use Types Packs/Day [...] documented as of this encounter Care Teams Interior Decorator Relationship Specialty Start Date End Date Kleber Ledesma, PCP - General Physician Tailer Off - 05/15/14 [facility] Kleber Ledesma, Assigned PCP 09/19/17 [facility] [address] [place] [address] documented as of this encounter
--- OUTSIDE RECORDS SUMMARY | 2022-01-05 11:34 | XMS_ITS | Encounter Summary ---
:1960 Author Organization [facility] Address [address] [place] [address]. [place] [address] Care Team Providers Name Role Phone Kleber Ledesma PA-C Primary Care Provider [phone] Kleber Ledesma PA-C Unavailable [phone] Encounter Details Date Type Department Care Team Description 06/01/2018 Travel Social History Tobacco Use Types Packs/Day [...] Depression Total Score: 2 01/14/2018 7:03 AM STRINGED INSTRUMENT ASSEMBLER documented as of this encounter Care Teams Supervisor [employer] Relationship Specialty Start Date End Date Kleber Ledesma, PCP - General Physician Prison Teacher - 05/15/14 [facility] Kleber Ledesma, Assigned PCP 09/19/17 [facility] [address] [place] [address] documented as of this encounter
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
--- OUTSIDE RECORDS SUMMARY | 2022-01-05 11:34 | XMS_ITS | Encounter Summary ---
:1960 Author Organization [facility] Address [address] [place] [address]. [place] [address] Care Team Providers Name Role Phone Kleber Ledesma PA-C Primary Care Provider [phone] Kleber Ledesma PA-C Unavailable [phone] Reason for Visit Reason Onset Date Comments Refill Request 04/30/2018 citalopram (CELEXA) 20 MG tablet Encounter Details Date Type Department Care Team Description 04/30/2018 Refill [facility] Kleber Ledesma Refill Request Clinic [place] RACH[facility] Valderrama (citalopram (CELEXA) [address] [address] [facility], [address] [place] [address] AVE MG tablet) [address] [place] [address] [place], [place] [phone] (Wo rk) [address] [phone] Social History Tobacco Use Types Packs/Day Years [...] Telephone Encounter - Deisy Elizabeth RN - 05/02/2018 2:12 PM CDT PHQ-9 SCORE 11/01/2017 01/10/2018 01/13/2018 PHQ-9 Total Score MyChart - - 2 (Minimal depression) PHQ-9 Total Score 3 3 2 MORENA-7 SCORE 11/01/2017 01/10/2018 01/13/2018 Total Score - - 2 (minimal anxiety) Total Score 3 2 2 Prescription approved per [facility] Refill Protocol. Deisy Elizabeth RN Telephone Encounter - Mendel Rodriguez - 05/02/2018 11:54 AM CDT Requested Prescriptions Pending Prescriptions Disp Refills ??? citalopram (CELEXA) 20 MG tablet [Pharmacy Med Name: CITALOPRAM HYDROBROMIDE 20MG TABS] 90 tablet 0 Last Written Prescription Date: 01/10/2018 Last Fill Quantity: 90 tablet, # refills: 0 Last office visit: 03/07/2018 with prescribing provider: 03/07/2018 Future Office Visit: Sig: TAKE ONE TABLET BY MOUTH EVERY DAY SSRIs Protocol Passed - 04/30/2018 6:38 AM Passed - Recent (12 mo) or future [...] - Medication is active on med list Passed - Patient is age 18 or older Passed - No active on record Passed - No positive test in last 12 months Mendel Rodriguez XRT documented in this encounter Plan of Treatment Not on filedocumented as of this encounter Visit Diagnoses Diagnosis Adjustment disorder with mixed anxiety a nd depressed mood documented in this encounter Additional Health Concerns Assessment Noted Time PHQ-9 Depression Total Score: 2 01/14/2018 7:03 AM PUBLIC HEALTH SANITARIAN documented as of this encounter Care Teams Registered Travel Nurse Relationship Specialty Start Date End Date Kleber Ledesma, PCP - General Physician Hand Rounder - 05/15/14 [facility] Kleber Ledesma, Assigned PCP 09/19/17 [facility] [address] [address] [place] [address] documented as of this encounter
--- OUTSIDE RECORDS SUMMARY | 2022-01-05 11:34 | XMS_ITS | Encounter Summary ---
:1960 Author Organization [facility] Address [address] [place] [address]. [place] [address] Care Team Providers Name Role Phone Kleber Ledesma PA-C Primary Care Provider [phone] Kleber Ledesma PA-C Unavailable [phone] Reason for Visit Reason Comments Physical Encounter Details Date Type Department Care Team Description 11/14/2018 Office Visit [facility] Kleber Ledesma general medical examination at a health care facility (Primary Dx); Clinic [place] RACHNA Valderrama Costochondritis; [place] [address] [address] Mild major depression (H); Road, [address] [place], [place] Essential hypertension with goal blood pressure less than 140/90; [place] [address] Mixed hyperlipidemia [id number] Social History Tobacco Use Types Packs/Day Years [...] Sign Reading Time Taken Comments Blood Pressure 108/68 11/14/2018 10:12 AM CDT Pulse 52 11/14/2018 10:12 AM CDT Temperature 36.8 ??C (98.2 ??F) 11/14/2018 10:12 AM CDT Respiratory Rate 14 11/14/2018 10:12 AM CDT Oxygen Saturation 98% 11/14/2018 10:12 AM CDT Inhaled Oxygen Concentration - - Weight 62.1 kg (137 lb) 11/14/2018 10:12 AM CDT Height 157.5 cm (5' 2) 11/14/2018 10:12 AM CDT Body Mass Index 25.06 11/14/2018 10:12 AM CDT documented in this encounter Patient Instructions Patient InstructionsAnn Gray CMA - 11/14/2018 10:00 AM CDT Images from the original note were not included. Preventive Health Recommendations Female Ages 50 - [...] eye doctor every 1 to 2 years. Patient Education Costochondritis Costochondritis is inflammation of a rib or the cartilage that connects a rib to your breastbone (sternum). It causes tenderness, and sometimes chest pain may be sharp or aching, or it may feel like pressure. Pain may get worse with deep breathing, movement, or exercise.??In some cases, the pain is mistaken for a heart attack. Despite this, the condition is not serious. Read on to learn more about the condition and how it can be treated. What causes costochondritis? The cause of costochondritis is not completely clear, but it may happen after a??chest injury, chestinfection, or coughing episode. Some physical activities can sometimes lead to costochondritis. Large-breasted women may be more likely to have the condition. Often, the reason for the inflammation is unknown. Diagnosing costochondritis There is no test for costochondritis. The condition is diagnosed by the symptoms you have. Your healthcare provider will perform a physical exam. He or she will ask you about your symptoms and examine your chest for tenderness. In some cases, tests are done to rule out more serious problems. These tests may include imaging tests such as chest X-ray, CT scan, or an ECG. Treating costochondritis If an underlying cause is found, treatment for that will likely relieve the problem. Costochondritisoften goes away on its own. The course of the condition varies from person to person. It usually lasts from weeks to months. In some cases, mild symptoms continue for months to years. To ease symptoms: ?? Take medicine as directed. These relieve pain and swelling. Ibuprofen or other NSAIDs are often recommended. In some cases, you may be given prescription medicine, such as muscle relaxants. ?? Avoid activities that put stress on the chest or spine. ?? Apply a heating pad (set to warm, not too high, heat) to the breastbone several times a day. ?? Perform stretching exercises as directed. Call the healthcare provider right away if you have any of the following: ?? Pain that is not relieved by medicine ?? Shortness of breath ?? Lightheadedness, dizziness, or fainting ?? Feeling of irregular heartbeat or fast pulse Anyone with chest pain should see a healthcare provider, especially those who are older and may be at risk for heart disease. Date Last Reviewed: 11/09/2015 ?? [id number] [employer]. [address] [place] [address], [place] [address]. All rights reserved. This information is not intended as a substitute for professional medical care. Always follow your healthcare professional's instructions. documented in this encounter Progress Notes Kleber Ledesma PA-C - 11/14/2018 10:00 AM CDT SUBJECTIVE: CC: Amie Scott is an 58 year old woman who presents for preventive health visit. Healthy Habits: Getting at least 3 servings of Calcium per day: NO Bi-annual eye exam: NO Dental care twice a year: Yes Sleep apnea or symptoms of sleep apnea: Daytime drowsiness Diet: Regular (no restrictions) and Breakfast skipped Frequency of exercise: 2-3 days/week Duration of exercise: 15-30 minutes Taking medications regularly: Yes Medication side effects: None PHQ-2 Total Score: 1 Additional concerns today: Yes Getting some chest pain- lasts a day or two, comes back and on and off. Has been told it was pleurisy in the past. Goes through to back. Work involves some lifting. Blood pressure/lipid- meds refilled at last visit. Needs labs today, is fasting. Today's PHQ-2 Score: PHQ-2 (??1999 Pfizer) 11/14/2018 Q1: Little interest or pleasure in doing things 0 Q2: Feeling down, depressed or hopeless 1 PHQ-2 Score 1 Q1: Little interest or pleasure in doing things Not at all Q2: Feeling down, depressed or hopeless Several days PHQ-2 Score 1 Abuse: Current or Past(Physical, Sexual or Emotional)- No Do you feel safe in your environment? Yes Social History Tobacco Use ??? Smoking status: Former Smoker ??? Smokeless tobacco: Never Used ??? Tobacco comment: quit smoking at 21 yrs old. smoked 2 to 21/2 ppd Substance Use Topics ??? Alcohol use: Yes Alcohol/week: 2.0 standard drinks Types: 1 Glasses of wine, 1 Shots of liquor per week Comment: socially Alcohol Use 11/14/2018 Prescreen: >3 drinks/day or >7 drinks/week? No Prescreen: >3 drinks/day or >7 drinks/week? - No flowsheet data found. Reviewed orders with patient. Reviewed health maintenance and updated orders accordingly - Yes Lab work is in process Labs reviewed in EPIC Mammogram Screening: Patient over age 50, mutual decision to screen reflected in health maintenance. Pertinent mammograms are reviewed under the imaging tab. Scheduled for tomorrow. History of abnormal Pap smear: PAP / HPV Latest Ref Rng & Units 10/04/2017 09/24/2014 PAP - NIL NIL HPV 16 DNA NEG:Negative Negative - HPV 18 DNA NEG:Negative Negative - OTHER HR HPV NEG:Negative Negative - Reviewed and updated as needed this visit by clinical staff Tobacco Allergies Meds Med Hx Surg Hx Fam Hx Soc Hx Reviewed and updated as needed this visit by Provider Review of Systems Constitutional: Negative for chills and fever. HENT: Positive for congestion. Negative for ear pain, hearing loss and sore throat. Eyes: Positive for visual disturbance. Negative for pain. Respiratory: Negative for cough and shortness of breath. Cardiovascular: Positive for chest pain. Negative for palpitations and peripheral edema. Gastrointestinal: Positive for abdominal pain. Negative for constipation, diarrhea, heartburn, hematochezia and nausea. Breasts: Negative for tenderness, breast mass and discharge. Genitourinary: Negative for dysuria, frequency, genital sores, hematuria, pelvic pain, urgency, vaginal bleeding and vaginal discharge. Musculoskeletal: Negative for arthralgias, joint swelling and myalgias. Skin: Negative for rash. Neurological: Negative for dizziness, weakness, headaches and paresthesias. Psychiatric/Behavioral: Negative for mood changes. The patient is not nervous/anxious. OBJECTIVE: BP 108/68 (BP Location: Right arm, Patient Position: Chair, Cuff Size: Adult Regular) Pulse 52 Temp 98.2 ??F (36.8 ??C) (Oral) Resp 14 Ht 1.575 m (5' 2) Wt 62.1 kg (137 lb) LMP 02/22/2010 (LMP Unknown) SpO2 98% BMI 25.06 kg/m?? Physical Exam GENERAL: healthy, alert and [...] Test Results: Labs reviewed in Epic ASSESSMENT/PLAN: 1. Routine general medical examination at a health care facility - CBC with platelets 2. Costochondritis Handout given and discussed. Try Ibuprofen and heat. Follow up if not improving. 3. Mild major depression (H) Doing well. Meds refilled at last visit. 4. Essential hypertension with goal blood pressure less than 140/90 Controlled. Refills given at last visit. - Comprehensive metabolic panel - TSH with free T4 reflex 5. Mixed hyperlipidemia Check labs today. - Lipid panel reflex to direct LDL Fasting - Comprehensive metabolic panel COUNSELING: Reviewed preventive health counseling, as reflected in patient instructions Estimated body mass index is 25.06 kg/m?? as calculated from the following: Height as of this encounter: 1.575 m (5' 2). Weight as of this encounter: 62.1 kg (137 lb). Weight management plan: Discussed healthy diet and exercise guidelines reports that she has quit smoking. She has never used smokeless tobacco. Counseling Resources: ATP IV Guidelines Pooled Cohorts Equation Calculator Breast Cancer Risk Calculator FRAX Risk Assessment ICSI Preventive Guidelines Dietary Guidelines for Americans, 2010 USDA's MyPlate ASA Prophylaxis Lung CA Screening Kleber Ledesma PA-C [facility] documented in this encounter Plan of Treatment Not on filedocumented as of this encounter Procedures Procedure Name Priority Date/Time Associated Diagnosis Comme nts TSH WITH FREE T4 Routine 11/14/2018 10:59 Essential hypertensi on Results for this REFLEX AM CDT with goal blood procedure ar e in pressure less than the resul ts 140/90 section. LIPID REFLEX TO Routine 11/14/2018 10:59 Mixed hyperlipidemia Results for this DIRECT LDL PANEL AM CDT procedure a re in the results section. COMPREHENSIVE Routine 11/14/2018 10:59 Essential hypertension Results for this METABOLIC PANEL AM CDT with goal blood procedure are in pressure less than the resul ts 140/90 section. Mixed hyperlipidemia CBC WITH PLATELETS Routine 11/14/2018 10:59 Routine general Re sults for this AM CDT medical examination at [facility] are in a health care facility the r esults section. documented in this encounter Results TSH with free T4 reflex (11/14/2018 10:59 AM CDT) athologist Signature TSH 1.50 0.40 - 4.00 11/15/2018 [facility] mU/L 8:[address] [facility] Specimen Anatomical Collection Method Collection Time Receive d Time (Source) Location / / Volume Laterality Blood specimen 11/14/2018 10:59 9 (specimen) AM CDT 11:00 AM CDT Kleber Ledesma PA-C LAB - BLOOD ORDERABLES Performing Organization Address City/State/ZIP Code Phon e Number [facility] [address] [place] [address] CBC with platelets (11/14/2018 10:59 AM CDT) athologist Signature WBC 5.9 4.0 - 11.0 11/14/2018 [place] 10e9/L 11:08 AM CDT [facility] RBC Count 4.81 3.8 - 5.2 11/14/2018 [facility] 10e12/L 11:08 AM CDT [facility] Hemoglobin 13.1 11.7 - 11/14/2018 [facility] 15.7 g/dL 11:08 AM CDT [facility] Hematocrit 41.6 35.0 - 11/14/2018 [facility] 47.0 % 11:08 AM CDT [facility] MCV 87 78 - 100 11/14/2018 [place] fl 11:08 AM CDT [facility] [place] 27.2 26.5 - 11/14/2018 [place] 33.0 pg 11:08 AM CDT [facility] MCHC 31.5 31.5 - 11/14/2018 [place] 36.5 g/dL 11:08 AM CDT [facility] RDW 13.0 10.0 - 11/14/2018 [place] 15.0 % 11:08 AM CDT [facility] Platelet Count 268 150 - 450 11/14/2018 [place] 10e9/L 11:08 AM CDT [facility] Specimen Anatomical Collection Method Collection Time Receive d Time (Source) Location / / Volume Laterality Blood specimen 11/14/2018 10:59 9 (specimen) AM CDT 11:00 AM CDT Kleber Ledesma PA-C LAB - BLOOD ORDERABLES Performing Organization Address City/State/ZIP Code Phon e Number [facility] [id number] [place] [address] Comprehensive metabolic panel (11/14/2018 10:59 AM CDT) athologist Signature Sodium 137 133 - 144 11/15/2018 [place] mmol/L 7:53 AM CDT [facility] Potassium 3.4 3.4 - 5.3 11/15/2018 [place] mmol/L 7:[address] [facility] Chloride 103 94 - 109 11/15/2018 [place] mmol/L 7:53 AM CDT [facility] Carbon Dioxide 27 20 - 32 11/15/2018 [place] mmol/L 8:[address] [facility] Anion Gap 7 3 - 14 11/15/2018 [place] mmol/L 8:[address] [facility] Glucose 82 70 - 99 11/15/2018 [place] mg/dL 8:04 AM CDT [facility] Urea Nitrogen 20 7 - 30 11/15/2018 [place] mg/dL 8:04 AM CDT [facility] Creatinine 0.85 0.52 - 11/15/2018 [place] 1.04 mg/dL 8:[address] [facility] GFR Estimate 74 >60 11/15/2018 [place] mL/min/{1. 8:04 AM [facility] 73_m2} [facility] Comment: Non GFR Calc Starting 01/25/2018, serum creatinine ba sed estimated GFR (eGFR) will be calculated using the Chronic Kidney Dise [facility] Epidemiology Collaboration (CKD-EPI) equation. GFR Estimate If 86 >60 mL/min/{1.73_m2} 11/15/2018 8: 04 AM [facility] Comment: GFR Calc Starting 01/25/2018, serum creatinine ba sed estimated GFR (eGFR) will be calculated using the Chronic Kidney Dise [facility] Epidemiology Collaboration (CKD-EPI) equation. Calcium 8.9 8.5 - 10.1 11/15/2018 8:04 AM [facility] mg/dL [facility] Bilirubin Total 0.5 0.2 - 1.3 mg/dL 11/15/2018 8:09 AM [facility] Albumin 3.9 3.4 - 5.0 g/dL 11/15/2018 8:09 AM [facility] Protein Total 7.2 6.8 - 8.8 g/dL 11/15/2018 8:09 AM [facility] Alkaline Phosphatase 60 40 - 150 U/L 11/15/2018 8:09 AM [facility] ALT 32 0 - 50 U/L 11/15/2018 8:09 AM [facility] AST 16 0 - 45 U/L 11/15/2018 8:09 AM [facility] Specimen Anatomical Collection Method Collection Time Receive d Time (Source) Location / / Volume Laterality Blood specimen 11/14/2018 10:59 9 (specimen) AM CDT 11:00 AM CDT Kleber Ledesma PA-C LAB - BLOOD ORDERABLES Performing Organization Address City/State/ZIP Code Phon e Number [facility] [address] [place] [address] Lipid panel reflex to direct LDL Fasting (11/14/2018 10:59 AM CDT) Patholo gist Method Time Signature Cholesterol 162 <200 11/15/2018 [place] mg/dL 8:09 AM CDT [facility] Triglycerides 86 <150 11/15/2018 [place] mg/dL 8:09 AM CDT [facility] HDL Cholesterol 60 >49 mg/dL 11/15/2018 [place] 8:11 AM CDT [facility] LDL Cholesterol 85 <100 11/15/2018 [place] Calculated mg/dL 8:11 AM CDT [facility] Comment: Desirable: <100 mg/dl Non HDL Cholesterol 102 <130 mg/dL 11/15/2018 8:11 AM CDT [facility] Specimen Anatomical Collection Method Collection Time Receive d Time (Source) Location / / Volume Laterality Blood specimen 11/14/2018 10:59 9 (specimen) AM CDT 11:00 AM CDT Kleber Ledesma PA-C LAB - BLOOD ORDERABLES Performing Organization Address City/State/ZIP Code Phon e Number [facility] [address] [place] [address] documented in this encounter Visit Diagnoses Diagnosis Routine general medical examination at a health care facility - 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
--- OUTSIDE RECORDS SUMMARY | 2022-01-05 11:34 | XMS_ITS | Encounter Summary ---
:1960 Author Organization [facility] Address [address] [place] [address]. [place] [address] Care Team Providers Name Role Phone Kleber Ledesma PA-C Primary Care Provider [phone] Kleber Ledesma PA-C Unavailable [phone] Kleber Ledesma PA-C Unavailable [phone] Reason for Visit Reason Onset Date Comments Medication Refill 02/03/2018 simvastatin (ZOCOR) 20 MG tablet Encounter Details Date Type Department Care Team Description 02/02/2018 Refill [facility] Kleber Ledesma tigermain Refill [facility] [place] RACHNA Valderrama (simvastatin (ZOCOR) [address] [facility], [address] [place] [address] tablet) [address] [place] [address] [place], [place] [phone] (Wo rk) [id number] [phone] Social History Tobacco Use Types Packs/Day Years Used Date Smoking Tobacco: Former Smokeless Tobacco: Never Comments: quit smoking at 21 yrs old. sm oked 2 to 21/2 ppd Alcohol Use Standard Drinks/Week Comments Yes 2 (1 standard drink = 0.6 oz pure alcoho l) socially Sex Assigned at Date Recorded Not on file documented as of this encounter Miscellaneous Notes Telephone Encounter - Rossi Nugent RN - 02/04/2018 10:42 AM CST Prescription approved per [facility] Refill Protocol. Rossi Nugent RN, BSN BILITATION SERVICES COUNSELOR Telephone Encounter - Latia Edwards - 02/03/2018 8:33 AM CST Images from the original note were not included. Requested Prescriptions Pending Prescriptions Disp Refills ??? simvastatin (ZOCOR) 20 MG tablet [Pharmacy Med Name: SIMVASTATIN 20MG TABS] 90 tablet 2 Last Written Prescription Date: 02/11/17 Last Fill Quantity: 90, # refills: 2 Last Office Visit: 01/10/2018 [place] Return in about 2 weeks (around 01/24/2018) for if symptoms worsen or fail to improve. Future Office Visit: Sig: TAKE ONE TABLET BY MOUTH AT BEDTIME [facility] Protocol Passed - 02/02/2018 7:04 PM Passed - LDL on file in past 12 months Recent Labs Lab Test 10/04/17 1216 LDL 109* Passed - No abnormal creatine kinase in past 12 months No lab results found. Passed - Recent (12 mo) or future (30 days) visit within the authorizing provider's specialty Patient had office visit in the last 12 months or has a visit in the next 30 days with authorizing provider or within the authorizing provider's specialty. See Patient Info tab in inbasket, or Choose Columns in Meds & Orders section of the refill encounter. Passed - Patient is age 18 or older Passed - No active on record Passed - No positive test in past 12 months BILITATION SERVICES COUNSELOR documented in this encounter Plan of Treatment Not on filedocumented as of this encounter Visit Diagnoses Diagnosis Mixed hyperlipidemia documented in this encounter Additional Health Concerns Assessment Noted Time PHQ-9 Depression Total Score: 2 01/14/2018 7:03 AM REHABILITATION SERVICES COUNSELOR documented as of this encounter Care Teams Regional Owner Operator Truck Driver Relationship Specialty Start Date End Date Kleber Ledesma, PCP - General Physician Technology Professional - 05/15/14 [facility] Kleber Ledesma, PCP - Assigned PCP 09/19/17 04/12/18 [facility] [address] [address] [address] Kleber Ledesma, Assigned PCP 09/19/17 [facility] [address] [place] [address] documented as of this encounter
--- OUTSIDE RECORDS SUMMARY | 2022-01-05 11:34 | XMS_ITS | Encounter Summary ---
:1960 Author Organization [facility] Address [address] [place] [address]. [place] [address] Care Team Providers Name Role Phone Kleber Ledesma PA-C Primary Care Provider [phone] Kleber Ledesma PA-C Unavailable [phone] Kleber Ledesma PA-C Unavailable [phone] Reason for Visit Reason Comments Sinus Problem Encounter Details Date Type Department Care Team Description 03/07/2018 Office Visit [facility] Dewey Arredondo, Acute sinusitis with [facility] [place] RACHNA symptoms > 10 days [address] [facility] [id number] [place] [address] (Primary Dx) [place] [id number] [phone] Social History Tobacco Use Types Packs/Day Years [...] Sign Reading Time Taken Comments Blood Pressure 117/71 03/07/2018 1:23 PM ARMHOLE BASTER HAND Pulse 67 03/07/2018 1:23 PM ARMHOLE BASTER HAND Temperature 36.7 ??C (98.1 ??F) 03/07/2018 1:23 PM ARMHOLE BASTER HAND Respiratory Rate 16 03/07/2018 1:23 PM ARMHOLE BASTER HAND Oxygen Saturation 99% 03/07/2018 1:23 PM ARMHOLE BASTER HAND Inhaled Oxygen Concentration - - Weight 63.5 kg (140 lb) 03/07/2018 1:23 PM ARMHOLE BASTER HAND Height - - Body Mass Index 25.61 01/13/2018 12:58 PM ARMHOLE BASTER HAND documented in this encounter Patient Instructions Patient InstructionsDewey Arredondo PA-C - 03/07/2018 1:20 PM CST Images from the original note were not included. Patient Education Sinusitis (Antibiotic Treatment) The sinuses [...] a towel soaked in hot water. Or, indirect sales representative the shower and direct the warm spray onto your face. Using a vaporizer along with a menthol rub at night may also help soothe symptoms.? An??expectorant??with guaifenesin may help thin nasal mucus and help your sinuses drain fluids. ?? You can use an fdlw-utk-boviapu??decongestant,??unless a similar medicine was prescribed to you. [...] decongestants. They can raise blood pressure.) ?? Ifoz-exd-woaoetx??antihistamines??may help if allergies contributed to your sinusitis. [...] provider or our staff if you are better in 1 week. When to seek [...] your vaccines. Date Last Reviewed: 12/09/2016 ?? [id number] [employer]. [address] [place] [address], [place] [address]. All rights reserved. This information is not intended as a substitute for professional medical care. Always follow your healthcare professional's instructions. OLE BASTER HAND documented in this encounter Progress Notes Dewey Arredondo PA-C - 03/07/2018 1:20 PM CST Images from the original note were not included. SUBJECTIVE: Amie Scott is a 58 year old female who presents to clinic today for the following health issues: Acute Illness Acute illness concerns: sinus Onset: 2 weeks ?? Fever: no ?? Chills/Sweats: no ?? Headache (location?): YES ?? Sinus Pressure: YES- right side worse ?? Conjunctivitis: YES: both ?? Ear Pain: no ?? Rhinorrhea: YES ?? Congestion: YES ?? Sore Throat: no ?? Cough: IHH-mkh-tbttduypux ?? Wheeze: no ?? Decreased Appetite: no ?? Nausea: no ?? Vomiting: no ?? Diarrhea: no ?? Dysuria/Freq.: no ?? Fatigue/Achiness: YES ?? Sick/Strep Exposure: no Therapies Tried and outcome: Mucinex, Sudafed, and ibuprofen with some improvement Problem list and histories reviewed & adjusted, as indicated. Additional history: as documented Patient Active Problem List Diagnosis ??? CARDIOVASCULAR SCREENING; LDL GOAL LESS THAN 160 ? ? Hypertension goal BP (blood pressure) < 140/90 ??? CARDIOVASCULAR SCREENING; LDL GOAL LESS THAN 130 ??? Family history of ischemic heart disease ??? Cataract ??? ACP (advance care planning) ??? Chest discomfort ??? Primary osteoarthritis of right knee ??? Post concussive syndrome Past Surgical History: Procedure Laterality Date ??? C NONSPECIFIC PROCEDURE laparoscopy by HELP DESK REPRESENTATIVE ??? CHOLECYSTECTOMY ??? COLONOSCOPY 12/31/2014 Dr. Urbano [facility] ??? COLONOSCOPY N/A 12/31/2014 Procedure: COLONOSCOPY; Surgeon: Adrianne Urbano MD; Location: [facility] ??? ORACLE R12 DEVELOPER SURGERY age 21 yrs.laporoscopy Social History Tobacco [...] Outpatient Medications Medication Sig Dispense Refill ??? albuterol (PROAIR HFA/PROVENTIL HFA/VENTOLIN HFA) 108 (90 Base) MCG/ACT inhaler Inhale 2 puffs into the lungs every 6 hours as needed for shortness of breath / dyspnea or wheezing (cough) 1 Inhaler0 ??? albuterol (PROVENTIL) (2.5 MG/3ML) 0.083% neb solution Take 1 vial (2.5 mg) by nebulization 3 times daily as needed for shortness of breath / dyspnea or wheezing 25 vial 1 ??? aspirin 81 MG tablet Take 81 mg by mouth daily ??? citalopram (CELEXA) 10 MG tablet Take 1 tablet (10 mg) by mouth daily 90 tablet 0 ??? citalopram (CELEXA) 20 MG tablet Take 1 tablet (20 mg) by mouth daily 90 tablet 0 ??? simvastatin (ZOCOR) 20 MG tablet TAKE ONE TABLET BY MOUTH AT BEDTIME 90 tablet 2 ??? vitamin E (VITAMIN E) 200 UNIT capsule Take 400 Units by mouth daily ??? atenolol-chlorthalidone (TENORETIC) 50-25 MG per tablet TAKE ONE TABLET BY MOUTH EVERY DAY (Patient not taking: Reported on 03/07/2018) 90 tablet 3 ??? benzonatate (TESSALON) 100 MG capsule Take 1 capsule (100 mg) by mouth 3 times daily as needed for cough (Patient not taking: Reported on 01/13/2018) 30 capsule 0 ??? CALCIUM CARBONATE PO Take 2,400 mg by mouth daily ??? Cholecalciferol (VITAMIN D3 PO) Take 2,000 Units by mouth daily ??? Coenzyme Q10 (CO Q 10 PO) Take 100 mg by mouth 2 times daily ??? FOLIC ACID PO Take 1 mg by mouth daily ??? Ginkgo Biloba 40 MG TABS Take 120 mg by mouth daily ??? meloxicam (MOBIC) 7.5 MG tablet Take 1 tablet (7.5 mg) by mouth daily (Patient not taking: Reported on 03/07/2018) 90 tablet 3 ??? Multiple Vitamins-Minerals (OCUVITE PO) Take 1 tablet by mouth daily ??? [place]-3 Fatty Acids (OMEGA-3 FISH OIL PO) Take 2.4 g by mouth daily ??? order for DME Equipment being ordered: nebulizer (Patient not taking: Reported on 01/13/2018) 1 each 0 ??? oxybutynin (DITROPAN XL) 5 MG 24 hr tablet Take 1 tablet (5 mg) by mouth daily (Patient not taking: Reported on 01/10/2018) 30 tablet 1 Allergies Allergen Reactions ??? No Known Drug Allergies Reviewed and updated as needed this visit by clinical staff Reviewed and updated as needed this visit by Provider ROS: Constitutional, HEENT, cardiovascular, pulmonary, gi and gu systems are negative, except as otherwise noted. OBJECTIVE: BP 117/71 (BP Location: Right arm, Patient Position: Chair, Cuff Size: Adult Regular) Pulse 67 Temp 98.1 ??F (36.7 ??C) (Oral) Resp 16 Wt 63.5 kg (140 lb) LMP 02/22/2010 SpO2 99% BMI 25.61 kg/m?? Body mass index is 25.61 kg/m??. GENERAL: healthy, alert and no distress EYES: Eyes grossly normal to inspection, PERRL and conjunctivae and sclerae normal HENT: normal cephalic/atraumatic, ear canals and TM's normal, nose and mouth without ulcers or lesions, nasal mucosa edematous , oropharynx clear, oral mucous membranes moist and sinuses: maxillary, frontal tenderness on both sides RESP: lungs clear to auscultation - no [...] axillary, or inguinal adenopathy Diagnostic Test Results: none ASSESSMENT/PLAN: (J01.90) Acute sinusitis with symptoms > 10 days (primary encounter diagnosis) Comment: Treat with augmentin. Discussed taking a probiotic with this. Plan: amoxicillin-clavulanate (AUGMENTIN) 875-125 MG tablet Patient Instructions Patient Education Sinusitis (Antibiotic Treatment) The sinuses [...] a towel soaked in hot water. Or, indirect sales representative the shower and direct the warm spray onto your face. Using a vaporizer along with a menthol rub at night may also help soothe symptoms.? An??expectorant??with guaifenesin may help thin nasal mucus and help your sinuses drain fluids. ?? You can use an xgqw-dyf-olcrfni??decongestant,??unless a similar medicine was prescribed to you. [...] decongestants. They can raise blood pressure.) ?? Bxsx-oze-wujzyno??antihistamines??may help if allergies contributed to your sinusitis. [...] provider or our staff if you are better in 1 week. When to seek [...] your vaccines. Date Last Reviewed: 12/09/2016 ?? [id number] [employer]. [address] [place] [address]. All rights reserved. This information is not intended as a substitute for professional medical care. Always follow your healthcare professional's instructions. Dewey Arredondo PA-C [facility] OLE BASTER HAND documented in this encounter Plan of Treatment Not on filedocumented as of this encounter Visit Diagnoses Diagnosis Acute sinusitis with symptoms > 10 days - Primary Acute sinusitis, unspecified documented in this encounter Additional Health Concerns Assessment Noted Time PHQ-9 Depression Total Score: 2 01/14/2018 7:03 AM ARMHOLE BASTER HAND documented as of this encounter Care Teams Grinding And Polishing Laborer Relationship Specialty Start Date End Date Kleber Ledesma, PCP - General Physician Pick And Shovel Man - 05/15/14 PA-C Medical Kleber Ledesma, PCP - Assigned PCP 09/19/17 04/12/18 [place] [address] [address] [id number] Kleber Ledesma, Assigned PCP 09/19/17 [place] [id number] [place] [id number] documented as of this encounter
--- OUTSIDE RECORDS SUMMARY | 2022-01-05 11:34 | XMS_ITS | Encounter Summary ---
:1960 Author Organization [facility] Address [address] [place] [address]. [place] [address] Care Team Providers Name Role Phone Kleber Ledesma PA-C Primary Care Provider [phone] Kleber Ledesma PA-C Unavailable [phone] Reason for Visit Reason Onset Date Comments Telephone 05/08/2019 Diarrhea 05/08/2019 nausea, dizzy Encounter Details Date Type Department Care Team Description 05/08/2019 Virtual Visit [facility] Kleber Ledesma Sore throat (Primary Dx); Clinic [facility] RACHNA Valderrama Cough; [place] [address] [address] Diarrhea, unspecified type; Road, [address] [place], [place] Mild major depression (H) [place], [place] [id number] Social History Tobacco Use Types Packs/Day [...] been in contact with No / Unsure 05/08/2019 8:55 AM CDT someone who was confirmed or suspected to have Coronavirus / COVID-19? documented as of this encounter Progress Notes Kleber Ledesma PA-C - 05/08/2019 9:00 AM CDT Subjective Amie Scott is a 59 year old female who is being evaluated via a billable telephone visit. The patient has been notified of following: [...] the test done at a later time. If during the course of the call the physician/provider feels a telephone visit is not appropriate, you will not be charged for this service. Physician has received verbal consent for a Telephone Visit from the patient? Yes Amie Scott complains of Chief Complaint Patient presents with ??? Telephone ??? Diarrhea nausea, dizzy ALLERGIES No known drug allergies Diarrhea/nausea/headache/sore throat/ throat feels thick now when swallowing/feeling light headed/fatigued/exhausted Onset: 05/03/19 ?? Description: Consistency of stool: runny and formed Blood in stool: no Number of loose stools in past 24 hours: 2 ?? Progression of Symptoms: improving ?? Accompanying Signs & Symptoms: Fever: no Nausea or vomiting; YES- nausea Abdominal pain: YES- cramping, pain Episodes of constipation: no Weight loss: no ?? History: Ill contacts: no Recent use of antibiotics: no Recent travels: no Recent medication-new or changes(Rx or OTC): no ?? 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 Alleviating factors: none Therapies Tried and outcome: Tylenol; Outcome: not helpful About one week ago started with nausea and diarrhea. Works in [employer] care- [employer]. Now exhausted, lightheaded when getting out of bed. Does have a mild cough and slight sore throat. Feels like she starts to get better and then gets worse again. No fever. Her fiance has COPD. Reviewed and updated as needed this visit by Provider Review of Systems ROS COMP: Constitutional, HEENT, cardiovascular, pulmonary, gi and gu systems are negative, except as otherwise noted. Objective Reported vitals: LMP 02/22/2010 (LMP Unknown) no distress Psych: Alert and oriented times 3; coherent speech, normal rate and volume, able to articulate logical thoughts, able to abstract reason, no tangential thoughts, no hallucinations or delusions Her affect is normal. Diagnostic Test Results: Labs reviewed in Epic Assessment/Plan: 1. Sore throat Considered strep test in clinic but if I am sending her to get COVID testing this is not a good idea. Will cover with chink. She has had strep many times apparently as an adult. - azithromycin (ZITHROMAX) 250 MG tablet; Take 2 tablets (500 mg) by mouth daily for 1 day, THEN 1 tablet (250 mg) daily for 4 days. Dispense: 6 tablet; Refill: 0 2. Cough Gave Amie the number for Employee Health as she is a [employer] employee. I think she does need COVID testing before returning to work. 3. Diarrhea, unspecified type - azithromycin (ZITHROMAX) 250 MG tablet; Take 2 tablets (500 mg) by mouth daily for 1 day, THEN 1 tablet (250 mg) daily for 4 days. Dispense: 6 tablet; Refill: 0 4. Mild major depression (H) PHQ 01/13/2018 10/24/2018 05/08/2019 PHQ-9 Total Score 2 7 0 Q9: Thoughts of better off /self-harm past 2 weeks Not at all Not at all Not at all Stable. Return in about 1 week (around 05/15/2019) for if symptoms worsen or fail to improve. Phone call duration: 10 minutes Kleber Ledesma PA-C documented in this encounter Plan of Treatment Not on filedocumented as of this encounter Visit Diagnoses Diagnosis Sore throat - Primary Acute pharyngitis Cough Diarrhea, unspecified type Mild major depression (H) Major depressive disorder, single episod e, mild documented in this encounter Additional Health Concerns Assessment Noted Time PHQ-9 Depression Total Score: 0 05/08/2019 9:06 AM CDT documented as of this encounter Care Teams Lap Welder Relationship Specialty Start Date End Date Kleber Ledesma, PCP - General Physician Tank Farm Gauger - 05/15/14 R[facility] Medical Kleber Ledesma, Assigned PCP 09/19/17 [place] [address] [place] [address] documented as of this encounter
--- OUTSIDE RECORDS SUMMARY | 2022-01-05 11:34 | XMS_ITS | Encounter Summary ---
:1960 Author Organization [facility] Address [address] [place] [address]. [place] [address] Care Team Providers Name Role Phone Kleber Ledesma PA-C Primary Care Provider [phone] Kleber Ledesma PA-C Unavailable [phone] Reason for Visit Reason Onset Date Comments Medication Refill 08/16/2018 citalopram (CELEXA) 20 MG tablet Encounter Details Date Type Department Care Team Description 08/15/2018 Refill [facility] Kleber Ledesma tion Refill [facility] [place] RACHNA Valderrama (citalopram (CELEXA) [facility], [address] [place] [address] tablet) [address] [place] [address] [place], [place] [phone] (Wo rk) [address] [phone] Social History Tobacco Use Types Packs/Day Years [...] Telephone Encounter - Eleanor Lance RN - 08/17/2018 4:15 PM CDT Prescription approved per [facility] Refill Protocol Eleanor Lance RN BS Telephone Encounter - Latia Edwards - 08/16/2018 10:37 AM CDT Images from the original note were not included. Requested Prescriptions Pending Prescriptions Disp Refills ??? citalopram (CELEXA) 20 MG tablet [Pharmacy Med Name: CITALOPRAM HYDROBROMIDE 20MG TABS] 90 tablet 0 Sig: TAKE ONE TABLET BY MOUTH EVERY DAY Last Written Prescription Date: 05/02/18 Last Fill Quantity: 90, # refills: 0 Last Office Visit: 06/01/2018 [place] Return in about 1 week (around 06/08/2018) for if symptoms worsen or fail to improve. Future Office Visit: SSRIs Protocol Failed - 08/15/2018 8:30 PM Failed - PHQ-9 score less than 5 in past 6 months PHQ-9 SCORE 11/01/2017 01/10/2018 01/13/2018 PHQ-9 Total Score MyChart - - 2 (Minimal depression) PHQ-9 Total Score 3 3 2 MORENA-7 SCORE 11/01/2017 01/10/2018 01/13/2018 Total Score - - 2 (minimal anxiety) Total Score 3 2 2 Passed - Medication is active on med list Passed - Patient is age 18 or older Passed - No active on record Passed - No positive test in last 12 months Passed - Recent (6 mo) or future (30 days) visit within the authorizing provider's specialty Patient had office visit in the last 6 months or has a visit in the next 30 days with authorizing provider or within the authorizing provider's specialty. See Patient Info tab in inbasket, or Choose Columns in Meds & Orders section of the refill encounter. documented in this encounter Plan of Treatment Not on filedocumented as of this encounter Visit Diagnoses Diagnosis Adjustment disorder with mixed anxiety a nd depressed mood documented in this encounter Additional Health Concerns Assessment Noted Time PHQ-9 Depression Total Score: 2 01/14/2018 7:03 AM BROOM MAN documented as of this encounter Care Teams Measurement And Sensing Technician Relationship Specialty Start Date End Date Kleber Ledesma, PCP - General Physician Credit Investigator - 05/15/14 PA-C Medical Kleber Ledesma, Assigned PCP 09/19/17 [place] [address] [place] [address] documented as of this encounter
--- OUTSIDE RECORDS SUMMARY | 2022-01-05 11:34 | XMS_ITS | Encounter Summary ---
:1960 Author Organization [facility] Address [address] [place] [address] Care Team Providers Name Role Phone Kleber Ledesma PA-C Primary Care Provider [phone] Kleber Ledesma PA-C Unavailable [phone] Reason for Referral Diagnostic Imaging Mammo (Routine) - Closed Specialty Diagnoses / Procedures Referred By Contact Refer red To Contact Diagnoses Visit for screening mammogram Kleber Ledesma Procedures MA Screen Bilateral w/Russell *MA Screening Digital Bilateral PA-C [id number] [facility] [place] [address] Referral ID Status Reason Start Date Expiration Date Visits Requ ested Visits Authorized [id number] Closed 10/24/2018 10/24/2019 1 1 Reason for Visit Diagnostic Imaging Mammo (Routine) - Closed Specialty Diagnoses / Procedures Referred By Contact Refer red To Contact Diagnoses Visit for screening mammogram Kleber Ledesma Procedures MA Screen Bilateral w/Russell *MA Screening Digital Bilateral PA-C [id number] [facility] [place] [address] Referral ID Status Reason Start Date Expiration Date Visits Requ ested Visits Authorized [id number] Closed 10/24/2018 10/24/2019 1 1 Encounter Details Date Type Department Care Team Description 11/15/2018 Hospital Encounter [facility] Kleber Ledesma Visit for screening [facility] Valderrama mammogram Center [address] [place] [address] [facility], [address] [place] [phone] Social History Tobacco Use Types Packs/Day Years Used Date Smoking Tobacco: Former Smokeless Tobacco: Never Comments: quit smoking at 21 yrs old. sm oked 2 to 21/2 ppd Alcohol Use Standard Drinks/Week Comments Yes 2 (1 standard drink = 0.6 oz pure alcoho l) socially Sex Assigned at Date Recorded Not on file documented as of this encounter Medications at Time of Discharge Medication Sig Dispensed Refills Start Date End Date albuterol (PROVENTIL) (2.5 0 8 09/22/2019 MG/3ML) 0.083% neb solution aspirin 81 MG tablet Take 81 mg by mouth 0 09/22/2019 daily atenolol-chlorthalidone Take 1 tablet by 90 tablet 1 201807/04/2019 (TENORETIC) 50-25 MG mouth daily tabletIndications: Essential hypertension with goal blood pressure less than 140/90 CALCIUM CARBONATE PO Take 2,400 mg by 0 09/22/2019 mouth daily Cholecalciferol (VITAMIN Take 2,000 Units by 0 09/22/2019 D3 PO) mouth daily citalopram (CELEXA) 20 MG Take 1 tablet (20 90 tablet 1 06/02/2019 tablet mg) by mouth daily Coenzyme Q10 (CO Q 10 PO) Take 100 mg by 0 09/22/2019 mouth 2 times daily dicyclomine (BENTYL) 20 MG Take 1 tablet (20 40 tablet 0 06/01/2021 tabletIndications: mg) by mouth 4 Diarrhea, unspecified times daily as type, Abdominal cramping needed (abdominal cramping) FOLIC ACID PO Take 1 mg by mouth 0 daily Ginkgo Biloba 40 MG TABS Take 120 mg by 0 09/22/2019 mouth daily Multiple Vitamins-Minerals Take 1 tablet by 0 09/22/2019 (OCUVITE PO) mouth daily [place]-3 Fatty Acids Take 2.4 g by mouth 0 09/22/2019 (OMEGA-3 FISH OIL PO) daily simvastatin (ZOCOR) 20 MG Take 1 tablet (20 90 tablet 2 12/27/2019 tabletIndications: Mixed mg) by mouth At hyperlipidemia Bedtime VENTOLIN HFA 108 (90 Base) INHALE TWO PUFFS BY 0 12/27/2017 09/22/2019 MCG/ACT inhaler MOUTH EVERY 6 HOURS NEEDED FOR SHORTNESS OF BREATH OR WHEEZING (COUGH) vitamin E (VITAMIN E) 200 Take 400 Units by 0 09/22/2019 UNIT capsule mouth daily documented as of this encounter Plan of Treatment Not on filedocumented as of this encounter Procedures Procedure Name Priority Date/Time Associated Diagnosis Comme nts MA SCREENING Routine 11/15/2018 3:56 PM Visit for screening Re sults for this BILATERAL W/ RUSSELL CDT mammogram procedure are in the results section. documented in this encounter Results MA Screen Bilateral w/Russell (11/15/2018 3:56 PM CDT) Anatomical Region Laterality Modality Breast Bilateral Mammography Specimen (Source) Anatomical Location Collection Method / Collectio n Time Received Time / Laterality Volume Impressions 11/16/2018 7:34 AM CDT IMPRESSION: BI-RADS CATEGORY: 1 - Negative. RECOMMENDED FOLLOW-UP: Annual Mammograph y. Recommend routine annual screening mammo graphy. Exam results letter mailed to patient. BILLY ADAN MD Narrative 11/16/2018 7:34 AM CDT SCREENING MAMMOGRAM, BILATERAL, DIGITAL w/CAD AND TOMOSYNTHESIS - 11/15/2018 3:56 PM. BREAST SYMPTOMS: No current breast compl aints. COMPARISON: ??01/27/2017, 09/10/2014. BREAST DENSITY: Heterogeneously dense. COMMENTS: No findings of suspicion for m alignancy. Procedure Note Billy Adan MD - 11/16/2018 SCREENING MAMMOGRAM, BILATERAL, DIGITAL w/CAD AND TOMOSYNTHESIS - 11/15/2018 3:56 PM. BREAST SYMPTOMS: No current breast compl aints. COMPARISON: 01/27/2017, 09/10/2014. BREAST DENSITY: Heterogeneously dense. COMMENTS: No findings of suspicion for m alignancy. IMPRESSION: BI-RADS CATEGORY: 1 - Negati ve. RECOMMENDED FOLLOW-UP: Annual Mammograph y. Recommend routine annual screening mammo graphy. Exam results letter mailed to patient. BILLY ADAN MD Kleber Ledesma PA-C IMG MAMMOGRAPHY ORDERABLES documented in this encounter Visit Diagnoses Diagnosis Visit for screening mammogram Other screening mammogram documented in this encounter Additional Health Concerns Assessment Noted Time PHQ-9 Depression Total Score: 7 10/24/2018 11:20 AM CD T documented as of this encounter Care Teams Location Analyst Relationship Specialty Start Date End Date Kleber Ledesma, PCP - General Physician Video Manager - 05/15/14 R[facility] Medical Kleber Ledesma, Assigned PCP 09/19/17 [place] [address] [facility] [place] [place] [address] documented as of this encounter
--- OUTSIDE RECORDS SUMMARY | 2022-01-05 11:34 | XMS_ITS | Encounter Summary ---
:1960 Author Organization [place] Address [address] [place] [address] Care Team Providers Name Role Phone Kleber Ledesma PA-C Primary Care Provider [phone] Kleber Ledesma PA-C Unavailable [phone] Kleber Ledesma PA-C Unavailable [phone] Reason for Visit Reason Comments Anxiety Depression Recheck Medication Encounter Details Date Type Department Care Team Description 01/10/2018 Office Visit [facility] Kleber Ledesma Adjust ment disorder with mixed anxiety and depressed mood (Primary Dx); [facility] [place] RACHNA Valderrama Cough [place] [address] [facility], [address] [phone] (Wo rk) [address] [phone] Social History Tobacco Use Types Packs/Day Years [...] Sign Reading Time Taken Comments Blood Pressure 128/70 01/10/2018 11:10 AM KEYBOARDING TEACHER Pulse 56 01/10/2018 11:10 AM KEYBOARDING TEACHER Temperature 36.8 ??C (98.3 ??F) 01/10/2018 11:10 AM KEYBOARDING TEACHER Respiratory Rate 16 01/10/2018 11:10 AM KEYBOARDING TEACHER Oxygen Saturation 99% 01/10/2018 11:57 AM KEYBOARDING TEACHER Inhaled Oxygen Concentration - - Weight 64.4 kg (142 lb) 01/10/2018 11:10 AM KEYBOARDING TEACHER Height - - Body Mass Index 25.97 12/27/2017 11:53 AM KEYBOARDING TEACHER documented in this encounter Progress Notes Kleber Ledesma PA-C - 01/10/2018 11:00 AM CST SUBJECTIVE: Amie Scott is a 57 year old female who presents to clinic today for the following health issues: History of Present Illness Depression & Anxiety Follow-up: Depression/Anxiety: Depression & Anxiety Status since last visit:: Improved Other associated symptoms of depression and anxiety:: None Significant life event:: No Current substance use:: Alcohol Today's PHQ-9 PHQ-9 Total Score: PHQ-9 Q9 Suicidal ideation: Thoughts of suicide or self harm: Self-harm Plan: Self-harm Action: Safety concerns for self or others: Diet: Regular (no restrictions) Frequency of exercise: None Taking medications regularly: Yes Medication side effects: None Additional concerns today: Yes Wondering about increasing Celexa. Tired,not as much energy as she would like. Recovering well from concussion. Has been in for testing at [place]. Has another concussion appointment this week, hoping she is done with this. PROBLEMS TO ADD ON... Was recently ill for a long time. Was out of work for 9 days. Ended up on ABX and steroids. Still coughing. Has an inhaler but feels that it is not helping enough. Using it just as needed. Chest hurts,tight cough. Problem list and histories reviewed & adjusted, as indicated. Additional history: as documented ROS: Constitutional, HEENT, cardiovascular, pulmonary, gi and gu systems are negative, except as otherwise noted. OBJECTIVE: BP 128/70 (BP Location: Right arm, Patient Position: Sitting, Cuff Size: Adult Regular) Pulse 56 Temp 98.3 ??F (36.8 ??C) (Oral) Resp 16 Wt 64.4 kg (142 lb) LMP 02/22/2010 SpO2 99% BMI 25.97 kg/m?? Body mass index is 25.97 kg/m??. GENERAL: healthy, alert and no distress HENT: ear canals and TM's normal, nose and mouth without ulcers or lesions NECK: no adenopathy, no asymmetry, masses, or scars and thyroid normal to palpation RESP: lungs clear to auscultation - no rales, rhonchi or wheezes PSYCH: mentation appears normal and affect flat Diagnostic Test Results: none ASSESSMENT/PLAN: 1. Adjustment disorder with mixed anxiety and depressed mood Will increase dose to 20mg daily and follow up in 2-3 months. PHQ-9 SCORE 11/01/2017 01/10/2018 01/13/2018 PHQ-9 Total Score MyChart - - 2 (Minimal depression) PHQ-9 Total Score 3 3 2 - citalopram (CELEXA) 20 MG tablet; Take 1 tablet (20 mg) by mouth daily Dispense: 90 tablet; Refill: 0 2. Cough I did order a neblizer and inhaler for her to try today. This was a pretty last minute request at the end of her appointment. I think it might be best to have her do a spirometry at some point given her former smoking status and semi recurrent complaint of cough. I asked her to come back in for another appointment to discuss further. - order for DME; Equipment being ordered: nebulizer (Patient not taking: Reported on 01/13/2018) Dispense: 1 each; Refill: 0 - albuterol (PROVENTIL) (2.5 MG/3ML) 0.083% neb solution; Take 1 vial (2.5 mg) by nebulization 3 times daily as needed for shortness of breath / dyspnea or wheezing Dispense: 25 vial; Refill: 1 Kleber Ledesma PA-C [facility] OARDING TEACHER documented in this encounter Nursing Notes Stephen Arauz MA - 01/10/2018 11:00 AM CST The following nebulizer treatment was given: MEDICATION: Albuterol Sulfate 2.5 mg SECOND CLASS WELDER: [employer] LOT #: [id number] EXPIRATION DATE: April-2019 [facility] # [id number] Nebulizer Start Time: 11:45 am O2=98% Nebulizer Stop Time: 11:57 am O2=99% See Vital Signs Flowsheet Stephen Arauz CMA (LUANA) OARDING TEACHER documented in this encounter Plan of Treatment Not on filedocumented as of this encounter Visit Diagnoses Diagnosis Adjustment disorder with mixed anxiety a nd depressed mood - Primary Cough documented in this encounter Additional Health Concerns Assessment Noted Time PHQ-9 Depression Total Score: 3 01/10/2018 12:07 PM CS T documented as of this encounter Care Teams Air Tucker Relationship Specialty Start Date End Date Kleber Ledesma, PCP - General Physician Band Top Maker - 05/15/14 PADeanneC Medical Kleber Ledesma, PCP - Assigned PCP 09/19/17 04/12/18 [place] [address] [place] REES [id number] Kleber Ledesma, Assigned PCP 09/19/17 R[place] [address] [place] [address] [id number] documented as of this encounter
--- OUTSIDE RECORDS SUMMARY | 2022-01-05 11:34 | XMS_ITS | Encounter Summary ---
:1960 Author Organization [place] Address [address] [place] [address]. [place] [address] Care Team Providers Name Role Phone Kleber Ledesma PA-C Primary Care Provider [phone] Kleber Ledesma PA-C Unavailable [phone] Reason for Visit Reason Comments Medication Refill Encounter Details Date Type Department Care Team Description 05/31/2019 [facility] Kleber Ledesma, Medication Refill [place] R[place] [address] [facility], [address] [place] [address] [place] [address] [place] [address] [phone] Social History Tobacco Use Types Packs/Day Years [...] Telephone Encounter - Mariam Alegria RN - 06/02/2019 1:24 PM CDT Routing refill request to provider for review/approval because: Please associate diagnosis to medication. Mariam Alegria, RN [facility] -- Triage Nurse documented in this encounter Plan of Treatment Not on filedocumented as of this encounter Visit Diagnoses Diagnosis Adjustment disorder with mixed anxiety a nd depressed mood - Primary documented in this encounter Additional Health Concerns Assessment Noted Time PHQ-9 Depression Total Score: 0 05/08/2019 9:06 AM CDT documented as of this encounter Care Teams Waterway Traffic Checker Relationship Specialty Start Date End Date Kleber Ledesma, PCP - General Physician Quality Control Inspector Heading - 05/15/14 PA-C Medical Kleber Ledesma, Assigned PCP 09/19/17 PA-C [address] [place] [address] documented as of this encounter
--- OUTSIDE RECORDS SUMMARY | 2022-01-05 11:34 | XMS_ITS | Encounter Summary ---
:1960 Author Organization [place] Address [address] [place] [address]. [place] [address] Care Team Providers Name Role Phone Kleber Ledesma PA-C Primary Care Provider [phone] Kleber Ledesma PA-C Unavailable [phone] Reason for Visit Reason Onset Date Comments Medication Refill 06/20/2018 atenolol-chlorthalid one (TENORETIC) 50-25 MG tablet Encounter Details Date Type Department Care Team Description 06/17/2018 Refill [facility] Kleber Ledesma tion Refill Clinic [place] RACHNA Valderrama (atenolol-chlorthalidon [facility], [address] [place] [address] NAYLA ADELITA e (TENORETIC) 50-25 MG [address] [place] [address] tablet) [place], [place] [phone] (Wo rk) [address] [phone] Social History Tobacco Use Types Packs/Day Years [...] Telephone Encounter - Eleanor Lance RN - 06/20/2018 6:59 PM CDT BP Readings from Last 6 Encounters: 06/01/18 106/60 04/30/18 112/64 03/07/18 117/71 01/13/18 120/68 01/10/18 128/70 12/27/17 108/[address] [facility] Refill Protocol Eleanor Lance RN BS Telephone Encounter - Giselle Edwardsna - 06/20/2018 8:27 AM CDT Images from the original note were not included. Requested Prescriptions Pending Prescriptions Disp Refills ??? atenolol-chlorthalidone (TENORETIC) 50-25 MG tablet [Pharmacy Med Name: ATENOLOL-CHLORTH 50-25MGTAB] 90 tablet 3 Sig: TAKE ONE TABLET BY MOUTH EVERY DAY Last Written Prescription Date: 06/15/17 Last Fill Quantity: 90, # refills: 3 Last Office Visit: 06/01/2018 Ledesma Return in about 1 week (around 06/08/2018) for if symptoms worsen or fail to improve. Future Office Visit: Beta-Blockers Protocol Passed - 06/17/2018 3:40 PM Passed - Blood pressure under 140/90 in [...] Depression Total Score: 2 01/14/2018 7:03 AM SINKER PULLER documented as of this encounter Care Teams Firebrick Layer Relationship Specialty Start Date End Date Kleber Ledesma, PCP - General Physician Councilor - 05/15/14 RACHNA Medical Kleber Ledesma, Assigned PCP 09/19/17 [place] [address] [place] [id number] documented as of this encounter
--- OUTSIDE RECORDS SUMMARY | 2022-01-05 11:34 | XMS_ITS | Encounter Summary ---
:1960 Author Organization [place] Address [address] [place] [address]. [place] [address] Care Team Providers Name Role Phone Kleber Ledesma PA-C Primary Care Provider [phone] Kleber Ledesma PA-C Unavailable [phone] Encounter Details Date Type Department Care Team Description 04/30/2018 Travel Social History Tobacco Use Types Packs/Day [...] Depression Total Score: 2 01/14/2018 7:03 AM METEOROLOGICAL AIDE documented as of this encounter Care Teams Die Storage Worker Relationship Specialty Start Date End Date Kleber Ledesma, PCP - General Physician Glassware Finisher - 05/15/14 RACHNA Medical Kleber Ledesma, Assigned PCP 09/19/17 [place] [address] [facility] [place] [address] documented as of this encounter
--- OUTSIDE RECORDS SUMMARY | 2022-01-05 11:34 | XMS_ITS | Encounter Summary ---
:1960 Author Organization [place] Address [address] [place] [address] Care Team Providers Name Role Phone Kleber Ledesma PA-C Primary Care Provider [phone] Kleber Ledesma PA-C Unavailable [phone] Encounter Details Date Type Department Care Team Description 05/08/2019 Travel Social History Tobacco Use Types Packs/Day [...] as of this encounter Care Teams Supervisor Shuttle Fitting Relationship Specialty Start Date End Date Kleber Ledesma, PCP - General Physician Operating Room Orderly - 05/15/14 RACHNA Medical Kleber Ledesma, Assigned PCP 09/19/17 [place] [address] [place] [address] documented as of this encounter
--- OUTSIDE RECORDS SUMMARY | 2022-01-05 11:34 | XMS_ITS | Encounter Summary ---
:1960 Author Organization [place] Address [address] [place] [address] Care Team Providers Name Role Phone Kleber Ledesma PA-C Primary Care Provider [phone] Kleber Ledesma PA-C Unavailable [phone] Kleber Ledesma PA-C Unavailable [phone] Reason for Visit Reason Onset Date Comments Patient Reminder 01/12/2018 appointment confirme d Encounter Details Date Type Department Care Team Description 01/12/[address] [facility] Concussion Ashley Elizabeth, [facility] Reminder [facility] [address] [place] [address] Social History Tobacco Use Types Packs/Day Years [...] documented as of this encounter Care Teams Blocker Hand Relationship Specialty Start Date End Date Kleber Ledesma PCP - General Physician Collet Making Machine Operator - 05/15/14 RACHNA Medical Kleber Ledesma PCP - Assigned PCP 09/19/17 04/12/18 PA-C [address] [address] [place], [place] [id number] Kleber Ledesma, Assigned PCP 09/19/17 PA-C [address] [address] [place], LUZMARIA [phone] documented as of this encounter
--- OUTSIDE RECORDS SUMMARY | 2022-01-05 11:34 | XMS_ITS | Encounter Summary ---
:1960 Author Organization [place] Address [address] [place] [address] Care Team Providers Name Role Phone Kleber Ledesma PA-C Primary Care Provider [phone] Kleber Ledesma PA-C Unavailable [phone] Kleber Ledesma PA-C Unavailable [phone] Reason for Visit Reason Comments Head Injury concussion- 09/01/2017- head strike against door frame Consultation - Closed Specialty Diagnoses / Procedures Referred By Contact Refer red To Contact Surgery Diagnoses Adjustment disorder, unspecified type Concussion without loss of consciousness, subsequent encounter Memory difficulties Leif Alberto PA-C [facility] [address] [place] [address] [place] [phone] Phone: Fax: Referral ID Status Reason Start Date Expiration Date Visits Requ ested Visits Authorized [id number] Closed 10/28/2017 10/28/2018 1 1 Encounter Details Date Type Department Care Team Description 01/13/2018 Office Visit [facility]ussion Leif Alberto Concussion without loss of c onsciousness, subsequent encounter (Primary Dx); [address] [place] [address] RACHNA Jimenez Adjustment disorder with anx ious mood [address] [place] [phone] Social History Tobacco Use Types Packs/Day [...] Sign Reading Time Taken Comments Blood Pressure 120/68 01/13/2018 12:58 PM MAJOR ASSEMBLY LINEMAN Pulse 64 01/13/2018 12:58 PM MAJOR ASSEMBLY LINEMAN Temperature - - Respiratory Rate - - Oxygen Saturation - - Inhaled Oxygen Concentration - - Weight 64.4 kg (142 lb) 01/13/2018 12:58 PM MAJOR ASSEMBLY LINEMAN Height 157.5 cm (5' 2) 01/13/2018 12:58 PM MAJOR ASSEMBLY LINEMAN Body Mass Index 25.97 01/13/2018 12:58 PM MAJOR ASSEMBLY LINEMAN documented in this encounter Progress Notes Leif Alberto PA-C - 01/13/2018 1:00 PM CST [facility] Concussion Clinic Follow up January 13, 2018 Assessment: (S06.0X0D) Concussion without loss of consciousness, subsequent encounter (primary encounter diagnosis) Comment: resolved (F43.22) Adjustment disorder with anxious mood Comment: improved Amie Scott is a 57 year old female who presents for follow-up evaluation of concussion. She wasevaluated by neuropsychology on 12/20/17 and diagnosed with adjustment disorder with anxiety and referred to [facility] for individual psychotherapy. Of note, no neurocognitive disorder was identified. Currently, Amie is feeling much better. She is working full-time, and sleep is much improved. She has an occasional memory lapse, however she just had Celexa increased from 10 mg to 20 mg a few days ago. CSA score today is 3/90, where 5/90 or less is indicative of resolution of concussion. We congratulate Amie on her recovery and affirmed all of the steps she is taken to come to this point. Will discharge today. Plan: 1. Biggest concern of pt addressed: no further concerns 2. Work restrictions- No restrictions 3. Follow up with PCP 4. Letters written today for: work HPI Date of injury: 09/01/17 Mechanism: slip/fall at work, no LOC Neuropsychology eval 12/20 dx adjustment disorder w/ anxiety, ref to [facility]. Cognition returned to baseline. Sleeping better. Occasional memory lapse, increased Celexa to 20mg from 10 a few days ago. Overall feeling well, no further concerns. Current Symptoms: CONCUSSION SYMPTOMS ASSESSMENT 09/30/2017 10/28/2017 01/13/2018 Headache or Pressure In Head 0 - none 0 - none 0 - none Upset Stomach or Throwing Up 0 - none 0 - none 0 - none Problems with Balance 0 - none 0 - none 0 - none Feeling Dizzy 0 - none 0 - none 0 - none Sensitivity to Light 1 - mild 2 - mild to moderate 0 - none Sensitivity to Noise 1 - mild 0 - none 0 - none Mood Changes 0 - none 0 - none 1 - mild Feeling sluggish, hazy, or foggy 1 - mild 0 - none 0 - none Trouble Concentrating, Lack of Focus 1 - mild 2 - mild to moderate 0 - none Motion Sickness 0 - none 0 - none 0 - none Vision Changes 1 - mild 3 - moderate 0 - none Memory Problems 1 - mild 3 - moderate 1 - mild Feeling Confused 0 - none 0 - none 0 - none Neck Pain 0 - none 0 - none 0 - none Trouble Sleeping 3 - moderate 2 - mild to moderate 1 - mild Total Number of Symptoms 7 5 3 Symptom Severity Score 9 12 3 REVIEW OF SYSTEMS: Refer to DocFlowsheets: Concussion symptoms GASTROINTESTINAL: no N/V MUSCULOSKELETAL: No neck pn NEUROLOGIC: No GODDARD, dizziness, paresthesia, or focal weakness PSYCHIATRIC: see PHQ-9 and GAD7 Pertinent social history: Work/Activities: Currently Working: yes 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 Current Outpatient Prescriptions Medication ??? albuterol (PROVENTIL) (2.5 MG/3ML) 0.083% neb solution ??? atenolol-chlorthalidone (TENORETIC) 50-25 MG per tablet ??? citalopram (CELEXA) 10 MG tablet ??? citalopram (CELEXA) 20 MG tablet ??? meloxicam (MOBIC) 7.5 MG tablet ??? simvastatin (ZOCOR) 20 MG tablet ??? albuterol (PROAIR HFA/PROVENTIL HFA/VENTOLIN HFA) 108 (90 Base) MCG/ACT inhaler ??? aspirin 81 MG tablet ??? benzonatate (TESSALON) 100 MG capsule ??? CALCIUM CARBONATE PO ??? Cholecalciferol (VITAMIN D3 PO) ??? Coenzyme Q10 (CO Q 10 PO) ??? FOLIC ACID PO ??? Ginkgo Biloba 40 MG TABS ??? Multiple Vitamins-Minerals (OCUVITE PO) ??? [place]-3 Fatty Acids (OMEGA-3 FISH OIL PO) ??? order for DME ??? oxybutynin (DITROPAN XL) 5 MG 24 hr tablet ??? vitamin E (VITAMIN E) 200 UNIT capsule No current facility-administered medications for this visit. OBJECTIVE: BP 120/68 Pulse 64 Ht 5' 2 Wt 142 lb LMP 02/22/2010 BMI 25.97 kg/m2 Wt Readings from Last 4 Encounters: 01/13/18 142 lb 01/10/18 142 lb 12/27/17 143 lb 11/08/17 148 lb EXAM: General: oriented to person, place, time. Head: NC/AT Neck: Supple, FROM Lungs: speaking in full sentences comfortably Heart: no LE edema Psych: Normal mood, congruent affect. No SI. Normal speech, linear thought process. Neuro: CN II-XII grossly intact. Normal tone, gait, and coordination. Time spent in one-on-one evaluation and discussion with patient regarding nature of problem, course,prior treatments, and therapeutic options, >50% of this 15 minute visit was spent in counseling including this patients personal symptom triggers and education thereof. Answers for HPI/ROS submitted by the patient on 01/13/2018 If you checked off any problems, how difficult have these problems made it for you to do your work, take care of things at home, or get along with other people?: Not difficult at all PHQ9 TOTAL SCORE: 2 MORENA 7 TOTAL SCORE: 2 R ASSEMBLY LINEMAN documented in this encounter Plan of Treatment Scheduled Referrals Name Type Priority Associated Diagnoses Order S chedule CONCUSSION ACADEMIC ADMINISTRATOR Referral Routine Adjustment disorder, Ordered: 10/28/2017 REFERRAL unspecified type Concussion without loss of consciousness, subsequent encou nter Memory difficulties documented as of this encounter Visit Diagnoses Diagnosis Concussion without loss of consciousness , subsequent encounter - Primary Adjustment disorder with anxious mood Adjustment disorder with anxiety documented in this encounter Additional Health Concerns Assessment Noted Time PHQ-9 Depression Total Score: 2 01/14/2018 7:03 AM MAJOR ASSEMBLY LINEMAN documented as of this encounter Care Teams Medical Office Coordinator Relationship Specialty Start Date End Date Kleber Ledesma, PCP - General Physician Manager Balance - 05/15/14 PAKerrie Medical Kleber Ledesma, PCP - Assigned PCP 09/19/17 04/12/18 [place] [address] [address] [id number] Kleber Ledesma, Assigned PCP 09/19/17 [place] [address] [place] [id number] documented as of this encounter
--- OUTSIDE RECORDS SUMMARY | 2022-01-05 11:34 | XMS_ITS | Encounter Summary ---
:1960 Author Organization [facility] Address [address] [place] [address]. [place] [address] Care Team Providers Name Role Phone Kleber Ledesma PA-C Primary Care Provider [phone] Kleber Ledesma PA-C Unavailable [phone] Reason for Referral Diagnostic Imaging Mammo (Routine) - Closed Specialty Diagnoses / Procedures Referred By Contact Refer red To Contact Diagnoses Visit for screening mammogram Kleber Ledesma Procedures MA Screen Bilateral w/Russell *MA Screening Digital Bilateral [facility] [address] [place] [address] Referral ID Status Reason Start Date Expiration Date Visits Requ ested Visits Authorized [id number] Closed 10/24/2018 10/24/2019 1 1 Consultation (Routine) - Closed Specialty Diagnoses / Procedures Referred By Contact Refer red To Contact Diagnoses Jaw pain Kleber Ledesma [facility] [address] [place] [address] [phone] [place] [address] [place] [address] Phone: [phone] Referral ID Status Reason Start Date Expiration Date Visits Requ ested Visits Authorized [id number] Closed 10/24/2018 10/24/2019 1 1 Reason for Visit Reason Onset Date Comments Musculoskeletal Problem right jaw Imm/Inj 10/24/2018 Flu Shot Encounter Details Date Type Department Care Team Description 10/24/2018 Office Visit [facility] Kleber Ledesma in (Primary Dx); Clinic Thomas Valderrama PA-C Mild major depression (H); [place] [address] Essential hypertension with goal blood p ressure less than 140/90; Road, [address] [place], [place] Mixed hyperlipidemia; [place] [address] Visit for screening mammogram; [id number] Diarrhea, unspecified type; Abdominal cramping; Need for prophylactic vaccination and inoculation against influenza Social History Tobacco Use Types Packs/Day Years [...] Sign Reading Time Taken Comments Blood Pressure 104/60 10/24/2018 10:17 AM CDT Pulse 57 10/24/2018 10:17 AM CDT Temperature 36.7 ??C (98 ??F) 10/24/2018 10:17 AM CDT Respiratory Rate 16 10/24/2018 10:17 AM CDT Oxygen Saturation 97% 10/24/2018 10:17 AM CDT Inhaled Oxygen Concentration - - Weight 62.6 kg (138 lb) 10/24/2018 10:17 AM CDT Height 157.5 cm (5' 2) 10/24/2018 10:17 AM CDT Body Mass Index 25.24 10/24/2018 10:17 AM CDT documented in this encounter Progress Notes Kleber Ledesma PA-C - 10/24/2018 10:00 AM CDT Subjective Amie Scott is a 58 year old female who presents to clinic today for the following health issues: HPI Joint Pain ?? Onset: x 9 months ?? Description: Location: right side jaw Character: Sharp, Dull ache and Stabbing ?? Intensity: currently 2/10, at worst 8-9/10 ?? Progression of Symptoms: same ?? Accompanying Signs & Symptoms: Other symptoms: Right ear pain, the whole side of the jaw ?? History: Previous similar pain: no ?? Precipitating factors: Trauma or overuse: no ?? Alleviating factors: Improved by: not eating Therapies Tried and outcome: ibuprofen, some relief Was in UC last spring and mentioned this as well. Also went to a dentist who did not think it was TMJ. Eating and yawning are painful. No clicking or popping noted, does not grind teeth Hypertension Follow-up ?? Do you check your blood pressure regularly outside of the clinic? Yes ?? Are you following a low salt diet? Yes ?? Are your blood pressures ever more than 140 on the top number (systolic) OR more than 90 on the bottom number (diastolic), for example 140/90? No BP Readings from Last 6 Encounters: 10/24/18 104/60 06/01/18 106/60 04/30/18 112/64 03/07/18 117/71 01/13/18 120/68 01/10/18 128/70 Depression and Anxiety Follow-Up ?? How are you doing with your depression since your last visit? Improved ?? How are you doing with your anxiety since your last visit? Improved ?? Are you having other symptoms that might be associated with depression or anxiety? No ?? Have you had a significant life event? No ?? Do you have any concerns with your use of alcohol or other drugs? No Social History Tobacco Use ??? Smoking status: Former Smoker ??? Smokeless tobacco: Never Used ??? Tobacco comment: quit smoking at 21 yrs old. smoked 2 to 212 ppd Substance Use Topics ??? Alcohol use: Yes Alcohol/week: 1.2 oz Types: 1 Glasses of wine, 1 Shots of liquor per week Comment: socially ??? Drug use: No PHQ 01/10/2018 01/13/2018 10/24/2018 PHQ-9 Total Score 3 2 7 Q9: Thoughts of better off /self-harm past 2 weeks Not at all Not at all Not at all MORENA-7 SCORE 11/01/2017 01/10/2018 01/13/2018 Total Score - - 2 (minimal anxiety) Total Score 3 2 2 She is doing well on Celexa. Would like to continue taking it. Feels it helps even out her mood and helps her sleep better. Reviewed and updated as needed this visit by Provider Review of Systems ROS COMP: Constitutional, HEENT, cardiovascular, pulmonary, gi and gu systems are negative, except as otherwise noted. Objective BP 104/60 (BP Location: Right arm, Patient Position: Sitting, Cuff Size: Adult Regular) Pulse 57 Temp 98 ??F (36.7 ??C) (Oral) Resp 16 Ht 1.575 m (5' 2) Wt 62.6 kg (138 lb) LMP 02/22/2010 (LMP Unknown) SpO2 97% BMI 25.24 kg/m?? Body mass index is 25.24 kg/m??. Physical Exam GENERAL: healthy, alert and no distress HENT: normal cephalic/atraumatic, ear canals and TM's normal, nose and mouth without ulcers or lesions, oropharynx clear, oral mucous membranes moist, sinuses: not tender but right TMJ region is TTP, no clicking of joint noted NECK: no adenopathy, no asymmetry, masses, or scars and thyroid normal to palpation MS: no gross musculoskeletal defects noted, no edema SKIN: no suspicious lesions or rashes PSYCH: mentation appears normal, affect normal/bright Diagnostic Test Results: Labs reviewed in Epic Assessment & Plan 1. Jaw pain Still recommend ibuprofen, also try heat and massage. Soft diet until she can be seen. - OTOLARYNGOLOGY REFERRAL 2. Mild major depression (H) - citalopram (CELEXA) 20 MG tablet; Take 1 tablet (20 mg) by mouth daily Dispense: 90 tablet; Refill: 1 3. Essential hypertension with goal blood pressure less than 140/90 Controlled, this is refilled today. - atenolol-chlorthalidone (TENORETIC) 50-25 MG tablet; Take 1 tablet by mouth daily Dispense: 90 tablet; Refill: 1 4. Mixed hyperlipidemia Needs lab but will schedule a wellness visit soon. - simvastatin (ZOCOR) 20 MG tablet; Take 1 tablet (20 mg) by mouth At Bedtime Dispense: 90 tablet; Refill: 2 5. Visit for screening mammogram - *MA Screening Digital Bilateral; Future 6. Diarrhea, unspecified type Refilled, she does not use too often. - dicyclomine (BENTYL) 20 MG tablet; Take 1 tablet (20 mg) by mouth 4 times daily as needed (abdominal cramping) Dispense: 40 tablet; Refill: 0 7. Abdominal cramping - dicyclomine (BENTYL) 20 MG tablet; Take 1 tablet (20 mg) by mouth 4 times daily as needed (abdominal cramping) Dispense: 40 tablet; Refill: 0 8. Need for prophylactic vaccination and inoculation against influenza - INFLUENZA QUAD, RECOMBINANT, P-FREE (RIV4) (FLUBLOCK) [73686] - Vaccine Administration, Initial [44589] BMI: Estimated body mass index is 25.24 kg/m?? as calculated from the following: Height as of this encounter: 1.575 m (5' 2). Weight as of this encounter: 62.6 kg (138 lb). Weight management plan: Discussed healthy diet and exercise guidelines Return in about 1 month (around 11/23/2018) for Physical Exam. Kleber Ledesma PA-C [facility] documented in this encounter Plan of Treatment Scheduled Referrals Name Type Priority Associated Diagnoses Order S chedule OTOLARYNGOLOGY REFERRAL Referral Routine Jaw pain Orde red: 10/24/2018 documented as of this encounter Results MA Screen Bilateral w/Russell [...] documented in this encounter Visit Diagnoses Diagnosis Jaw pain - Primary Mild major depression (H) Major depressive disorder, single episod e, mild Essential hypertension with goal blood p ressure less than 140/90 Mixed hyperlipidemia Visit for screening mammogram Other screening mammogram Diarrhea, unspecified type Abdominal cramping Abdominal pain, unspecified site Need for prophylactic vaccination and in oculation against influenza Visit for screening mammogram Other screening mammogram documented in this encounter Additional Health Concerns Assessment Noted Time PHQ-9 Depression Total Score: 7 10/24/2018 11:20 AM CD T documented as of this encounter Care Teams Junior Buyer Relationship Specialty Start Date End Date Kleber Ledesma, PCP - General Physician Travel Manager - 05/15/14 [facility] Medical Kleber Ledesma, Assigned PCP 09/19/17 [facility] [address] [place] [address] documented as of this encounter
--- OUTSIDE RECORDS SUMMARY | 2022-01-05 11:34 | XMS_ITS | Encounter Summary ---
:1960 Author Organization [facility] Address [address] [place] [address]. [place] [address] Care Team Providers Name Role Phone Kleber Ledesma PA-C Primary Care Provider [phone] Kleber Ledesma PA-C Unavailable [phone] Reason for Visit Reason Onset Date Comments Medication Refill 11/21/2018 citalopram (CELEXA) 20 MG tablet Encounter Details Date Type Department Care Team Description 11/19/[address] [facility] Kleber Ledesma tion Refill Clinic [place] [facility] Valderrama (citalopram (CELEXA) [facility], [address] [place] [address] MG tablet) [address] [place] [address] [place], [place] [phone] (Wo rk) [address] [phone] Social History Tobacco Use Types Packs/Day Years [...] Telephone Encounter - Eleanor Lance RN - 11/21/2018 2:46 PM CDT duplicate Telephone Encounter - Latia Edwards - 11/21/2018 1:11 PM CDT Images from the original note were not included. Requested Prescriptions Pending Prescriptions Disp Refills ??? citalopram (CELEXA) 20 MG tablet [Pharmacy Med Name: CITALOPRAM HYDROBROMIDE 20MG TABS] 90 tablet 0 Sig: TAKE ONE TABLET BY MOUTH EVERY DAY Last Written Prescription Date: 10/24/18 Last Fill Quantity: 90, # refills: 1 Last Office Visit: 11/14/2018 [place] Return in about 6 months (around 05/16/2019) for Follow up, Med Check. Future Office Visit: SSRIs Protocol Failed - 11/19/2018 5:03 AM PHQ-9 SCORE 01/10/2018 01/13/2018 10/24/2018 PHQ-9 Total Score MyChart - 2 (Minimal depression) - PHQ-9 Total Score 3 2 7 MORENA-7 SCORE 11/01/2017 01/10/2018 01/13/2018 Total Score - - 2 (minimal anxiety) Total Score 3 2 2 Failed - PHQ-9 score less than 5 in past 6 months Please review last PHQ-9 score. Passed - Medication is active on med [...] documented as of this encounter Care Teams Operating Systems Programmer Relationship Specialty Start Date End Date Kleber Ledesma, PCP - General Physician Teletype Operator - 05/15/14 PA-C Medical Kleber Ledesma, Assigned PCP 09/19/17 [facility] [address] [place] [address] documented as of this encounter
--- OUTSIDE RECORDS SUMMARY | 2022-01-05 11:34 | XMS_ITS | Encounter Summary ---
:1960 Author Organization [facility] Address [address] [place] [id number] Care Team Providers Name Role Phone Kleber Ledesma PA-C Primary Care Provider [phone] Kleber Ledesma PA-C Unavailable [phone] Kleber Ledesma PA-C Unavailable [phone] Reason for Visit Reason Onset Date Comments Forms 03/22/2018 Encounter Details Date Type Department Care Team Description 03/22/2018 Telephone Health Concussion Ashley Elizabeth LPN Forms [address] [phone] Social History Tobacco Use Types Packs/Day Years Used Date Smoking Tobacco: Former Smokeless Tobacco: Never Comments: quit smoking at 21 yrs old. sm oked 2 to 21/2 ppd Alcohol Use Standard Drinks/Week Comments Yes 2 (1 standard drink = 0.6 oz pure alcoho l) socially Sex Assigned at Date Recorded Not on file documented as of this encounter Miscellaneous Notes Telephone Encounter - Ashley Elizabeth LPN - 03/22/2018 10:07 AM CST Health care Provider report faxed to Jose M Perez [phone] RESSOR STATION ENGINEER CHIEF documented in this encounter Plan of Treatment Not on filedocumented as of this encounter Visit Diagnoses Not on filedocumented in this encounter Additional Health Concerns Assessment Noted Time PHQ-9 Depression Total Score: 2 01/14/2018 7:03 AM COMPRESSOR STATION ENGINEER CHIEF documented as of this encounter Care Teams Director Of Informatics Relationship Specialty Start Date End Date Kleber Ledesma, PCP - General Physician Integration Software Engineer - 05/15/14 PAKerrie Medical Kleber Ledesma, PCP - Assigned PCP 09/19/17 04/12/18 [facility] [address] [address] [id number] Kleber Ledesma, Assigned PCP 09/19/17 [facility] [address] [place] [id number] documented as of this encounter
--- OUTSIDE RECORDS SUMMARY | 2022-01-05 11:35 | XMS_ITS | Encounter Summary ---
:1960 Author Organization [facility] Address [address] [place] [address]. [place] [address] Care Team Providers Name Role Phone Kleber Ledesma PA-C Primary Care Provider [phone] Kleber Ledesma PA-C Unavailable [phone] Kleber Ledesma PA-C Unavailable [phone] Encounter Details Date Type Department Care Team Description 12/20/2017 Hospital Encounter [facility] [place], Adju stment disorder with anxiety; SERVICES [facility]; [address] [facility] Mild traumatic brain injury, without loss of consciousness, sequela (H) [place], [place] PSYCHOLOGY [id number] [place] [address] [place] [address] Social History Tobacco Use Types Packs/Day Years Used Date Smoking Tobacco: Former Smokeless Tobacco: Never Comments: quit smoking at 21 yrs old. oked 2 to 21/2 ppd Alcohol Use Standard Drinks/Week Comments Yes 2 (1 standard drink = 0.6 oz pure alcoho l) socially Sex Assigned at Date Recorded Not on file documented as of this encounter Medications at Time of Discharge Medication Sig Dispensed Refills Start Date End Date aspirin 81 MG tablet Take 81 mg by 0 0 09/22/2019 mouth daily atenolol-chlorthalidone TAKE ONE TABLET BY 90 tablet 3 05/0 09/201706/17/2018 (TENORETIC) 50-25 MG per MOUTH EVERY DAY tabletIndications: Essential hypertension with goal blood pressure less than 140/90 CALCIUM CARBONATE PO Take 2,400 mg by 0 09/22/2019 mouth daily Cholecalciferol (VITAMIN D3 Take 2,000 Units 0 09/22/2019 PO) by mouth daily citalopram (CELEXA) 10 MG Take 1 tablet (10 90 tablet 0 06/01/2018 tabletIndications: Post mg) by mouth daily concussive syndrome Coenzyme Q10 (CO Q 10 PO) Take 100 mg by 0 09/22/2019 mouth 2 times daily FOLIC ACID PO Take 1 mg by mouth 0 daily Ginkgo Biloba 40 MG TABS Take 120 mg by 0 09/22/2019 mouth daily meloxicam (MOBIC) 7.5 MG Take 1 tablet (7.5 90 tablet 3 06/01/2018 tabletIndications: Primary mg) by mouth daily osteoarthritis of right knee Multiple Vitamins-Minerals Take 1 tablet by 0 09/22/2019 (OCUVITE PO) mouth daily Jackson-3 Fatty Acids Take 2.4 g by 0 (OMEGA-3 FISH OIL PO) mouth daily oxybutynin (DITROPAN XL) 5 Take 1 tablet (5 30 tablet 1 06/01/2018 MG 24 hr tabletIndications: mg) by mouth daily Mixed incontinence simvastatin (ZOCOR) 20 MG TAKE ONE TABLET BY 90 tablet 2 02/02/2018 tabletIndications: Mixed MOUTH AT BEDTIME hyperlipidemia vitamin E (VITAMIN E) 200 Take 400 Units by 0 09/22/2019 UNIT capsule mouth daily documented as of this encounter Progress Notes [facility] - 12/20/2017 11:59 PM CST NEUROPSYCHOLOGICAL CONSULTATION NAME: Amie Scott DATE OF : 1960 DATE OF EVALUATION: 12/20/2017 REFERRAL & BRIEF HISTORY OF PRESENT ILLNESS: Ms. Scott is a 57-year-old, right- handed, female with a history of repeated concussions who presented to today???s session with complaints ofmemory, irritability, and decision making difficulties since her most recent concussion in August 2017. Ms. Scott was referred for a neuropsychological evaluation by Leif Chin???RACHNA Knowles at the [facility] to provide diagnostic clarification. She was unaccompanied to today???s meeting.With regard to the details of her concussion, Ms. Scott reported that while at work on 09/01/2017, she slipped on a waxed floor and hit the left side of her head on the metal frame of a doorway. She rep orted that she did not lose consciousness, but did feel lightheaded and dizzy. There was no post-traumatic amnesia. She completed her shift and returned home in the evening. The next morning she reportedly could tell ???something was off?? and decided to go to the doctor where it was identified that she had a concussion. 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 Since then she has gradually increased her work hours, and recently has returned to second time worker (per Leif Chin???RACHNA Knowles note on 10/28/17). Ms. Scott continues to experience some non-cognitive symptoms. On a post-concussion symptom checklist, Ms. Scott endorsed feeling the following symptoms in the past 1-2 weeks: visual difficulties, photosensitivity, noise sensitivity, excessive fatigue, troubles with falling and staying asleep, and changes in her memory. Ms. Scott reported she feels ???80 percent back to normal, besides for [her] memory?? . A [place] Cognitive Assessment (MOCA) was conducted on 10/28/2017 by O???RACHNA Knowles, and revealed a score of 25/30. O???RACHNA Knowles, encouraged Ms. Scott to complete full neuropsychological testing to address memory concerns. Additionally, he recommended Ms. Scott take frequent breaks in dark rooms to rest when non- cognitive symptoms are present. He prescribed citalopram to assist with her difficulties in sleeping, recommended Tylenol and ibuprofen for headaches, daily exercise for fatigue, smart phone applications for anxiety, and reminder strategies for memory. CLINICAL INTERVIEW: In brief, Ms. Scott reported that she has continued to experience difficulties with memory, irritability, and decision making, despite experiencing steady improvement on most other symptoms since her concussion on 09/01/2017. 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 However, she has noticed her memory issues interfering with her ability to remember computer usernames and login passwords. Additionally, she described moments of slight disorientation that were alarming to her (i.e., forgetting how to operate a feature in her vehicle, failing to immediately ???register?? how she knew someone, not feeling like her ???normal self?? ). She also reported that she feels more irritable and ???muddled up?? when stressed. She reported that in these instances she experiences difficulties with decision making due to self-doubt. Aside from sub tle word finding difficulties, she denied any issues with concentration or other cognitive concerns during the interview. With regard to activities of daily living, Ms. Scott is independent in managing her own medications, finances, manager strategic alliances, and cooking. Ms. Scott had difficulties balancing her checkbook immediately after her concussion; however she currently reports no issues in managing her checkbook. She also reported occasional stress when driving in a new environment; however, she reported that she is able to navigate successfully. Ms. Scott experiences high levels of fatigue, which reportedly interfere with her ability to complete manager strategic alliances at her normal pace. MEDICAL HISTORY: Ms. Scott???s medical history is significant for hypertension, high cholesterol, asthma, cataracts, and arthritis. She denied a history of stroke and heart attack, surgeries, or hospitalizations. She endorsed a history of chronic knee pain due to arthritis. Ms. Scott reported two previous head injuries. In high school she tripped and fell backwards and hit the back of her head on the ground. She believes she may have had a momentary loss of consciousnessand she experienced headaches daily for a ???long time?? afterward. She reported that she did not receive medical attention for that head injury. She also reported a concussion when she fell at work in May 2016 and struck the left side of her head. Again, she believes that she lost consciousness momentarily. She took approximately two weeks off of work at that time due to her symptoms, but denied persistent post-concussive symptoms after the first month post-injury. MEDICATIONS: Atenolol- chlorthalidone (Tenoretic) 50-25 mg Citalopram (Celexa) 10mg Simvastatin (Zocor) 20 mg Aspirin 81 mg Calcium Carbonate PO Meclizine (ANTIVERT) 25 mg Cholecalciferol (Vitamin D3) Coenzyme Q10 Folic Acid Ginkgo Biloba 40 mg Meloxicam (Mobic) 7.5 mg Multivitamins Jackson-3 Fatty Acids Oxybutynin 5 mg Vitamin E FAMILY MEDICAL HISTORY: Ms. Scott reported a strong family history of heart disease and heart attack (father, older brother, younger brother, sister). Her sister has been diagnosed with multiple sclerosis, and her paternal grandmother had dementia. Her oldest daughter reportedly has ???disabilities?? (unspecified). PSYCHIATRIC HISTORY: Ms. Scott tended to minimize any symptoms of depression or anxiety. She initially denied a history of psychiatric treatment, but with further discussion reported that she previously worked with a psychologist while going through an ???adjustment phase?? after a divorce. She has not worked with a therapist since that time. She denied a history of pharmacological treatment for depression, but is currently taking 10 mg of citalopram for ???sleep.?? She denied ever being hospitalized for psychiatric concerns. She denied current suicidal ideation. Currently, she reports that she ???worries about her kids?? and occasionally experiences racing thoughts at night. Ms. Scott does not identify these experiences as symptoms of anxiety. While she denied currently experiencing low mood or depression, she stated that she was struggling quite a bit after her concussion injury. She apparently was down in the dumps as a result of thinking that she was ???losing it?? after her concussion. She feels that she is doing ???much better?? now. She acknowledged that her mind went to the ???worst case scenario?? initially and that took a toll on her mood. Regarding possible vegetative symptoms of depression, Ms. Scott reported that she experiences significant sleep disturbance including difficulties falling and staying asleep. She attributes these difficulties to multiple factors including racing thoughts, hot flashes, and using the bathroom due to her high blood pressure medication. She reported getting 5-7 hours of sleep per night; however she believes that she rarely achieves ???deep sleep?? and experiences fatigue frequently. She reported that hersleep has improved since being prescribed an antidepressant. Ms. Scott denied any changes in her weight or appetite. SUBSTANCE USE: Ms. Scott reported that she drinks approximately 1 alcoholic beverage or less per week and denied a history of alcohol abuse or dependence. She denied current tobacco use; however she reported that she smoked approximately 2 packs per day for 5 years between the ages of [age]. She denied illicit drug use. SOCIAL HISTORY: Ms. Scott was born in [place], [place] and raised in [place], [place]. She reported that she was a ???C?? average student throughout high school. She denied any grade repetitions throughout school. After high school Ms. Scott began working and moved to the [facility] at the ageof 18. 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 has four children and is currently engaged to her fianc??, who she has been with for 10 years. She reported that her fianc?? has three sons, and together they have 11 grandchildren. TESTS ADMINISTERED: The test battery included Oliver Adult Intelligence Scale- IV (Block Design, Digit Span, Matrix Reasoning, Arithmetic, Information), Wide Range Achievement Test-4 (Reading), Oliver Memory Test- IV (Logical Memory and Visual Reproduction), [place] Verbal Learning Test-II, [place] Naming Test- 15, Qmaj-P-Ruhty test, Trailmaking Test, Alvarez-Osterrieth Complex Figure Test, Stroop Color and Word Test, [place] Card Sorting Test-1 deck, Controlled Oral Word Association and Category Fluency Test, Grooved Peg Test, Finger Tapping Test, and MORENA-7, PHQ-9, PCL-C. BEHAVIORAL OBSERVATIONS: Ms. Scott arrived on time and alone to today's appointment. She was well- dressed and groomed. She was independent in her ambulation. She appeared alert and engaged. Her mood was pleasant. Her affect was congruent with thought content. She was an excellent historian. She shared information freely. Rapport was established and eye contact was unremarkable. The rate of her speech was normal and her prosody was within normal limits. The volume of her speech was within normal limits. There was no evidence of a vivian thought disorder; no hallucinations or delusions were apparent. Judgment and insight appeared intact. During today's session, Ms. Scott was notably nervous. During timed tasks she sat on the edge of her chair and bounced her knee. At the beginning of a visual scanning task she became slightly overwhelmed after hearing the instructions and asked if she could ???start over?? before the time had begun.She was inclined to self-monitor her performance and slightly reactive when she perceived herself sandra performing poorly on tasks. Occasionally, she would need items or directions repeated. Overall, Ms. Scott was an engaged and compliant participant in the testing. She asked questions appropriately.She displayed a pleasant mood throughout with congruent affect, smiling often at the examiner. She persisted with difficult and challenging tasks. Due to the testing environment putting Ms. Scott under a degree of stress, and I suspect that her anxiety contributed to the variability observed in her cognitive profile. DESCRIPTIVE PERFORMANCE LARA: Scores at the 9th percentile and above are generally considered within normal limits: Superior scores: 91st percentile and above High Average scores: 75th through 90th percentile Average scores: 25th through 74th percentile Low Average scores: 10th through 24th percentile Scores that fall at the 9th percentile are considered borderline Scores that fall at the 8th percentile and below are considered a degree of impairment: Mildly Impaired: 3rd through 8th percentile Moderately Impaired: 1st through 2nd percentile Severely Impaired: <1st percentile OPTIMAL PREMORBID INTELLECT: Optimal premorbid intellectual abilities were estimated as falling in the low average range based onMsFrank Scott???s educational and occupational histories and performance on tasks least likely to be affected by acquired brain dysfunction (i.e., ???hold tests?? ). TEST RESULTS: Ms. Scott performed well on a task that asked her to construct a clock set at a specific time. She demonstrated appropriate planning. She ragini a complete mechoopda, placed the numbers in the correct location on the face of the clock, ragini hands of appropriate length (minute hand longer than hour hand), and pointed the hands to the appropriate numbers to signal the correct time. Ms. Scott exhibited average attention overall, with slight fluctuations noted that were likely secondary to anxiety. Her basic attention scores were in the average range on a task that required her torecall and mentally manipulate digits and on a measure of mental arithmetic. Specifically, Ms. Scott was able to recall up to 5 digits presented auditorily (average), mentally reverse up to 5 digits (average), and numerically sequence up to 6 digits (average). Anxiety appeared to impact her initial recall trial on a supraspan word list task, where she recalled only 3 of 16 words presented (moderately impaired). Ms. Scott???s performance was borderline impaired on a measure of acquired verbal knowledge and sheexhibited a below average score on a measure of confrontation naming. She did not benefit from phonemic cues. She performed within the average range on a measure of semantic verbal fluency and in the mo derately impaired range on a task of phonemic fluency. Ms. Scott has a somewhat reduced level of academic achievement and I wonder to what extent that may have contributed to her variable performanceswithin this domain. With regard to visual perceptual skills, Ms. Scott exhibited a high average visual reasoning abilities on a test that required her to analyze geometric design and identify the component part that bestcompleted the design/followed a pattern. Her performance was mildly below average when she was askedto copy a complex visual figure. Ms. Scott appeared to be stimulus bound and exhibited poor planning and integration of the figure. Her performance improved to average on a measure of visuoconstruction that required her to re-create a series of 2- dimensional designs via 3-dimensional block arrays. Ms. Scott???s cognitive speed and processing were average. She performed in the average range on a task that required speeded visual scanning and sequencing of numbers. Her performance declined slightly, but remained broadly average, on a more complex subsequent task which required mental flexibilityand set-shifting to alternate between sequencing letters and numbers on a page. Of note, she appeared somewhat anxious on this task and made two errors. Speeded word reading, color naming, and responseinhibition were within the average range. Ms. Scott exhibited variability across her memory and learning performances. This variability may be partially due to anxiety, which was evident on memory testing. Her performance ranged from low average to average on most tasks. She performed in the low average range on a test that required her to learn a series of details presented auditorily in a short story format. She retained and recalled 68% of the previously learned details over a long delay (low average) and her performance was average when she was asked to answer a series of yes or no questions regarding the content of the previously learned stories. She was also asked to learn a series of 16 words presented over [address] an initially low performance, she benefitted significantly from repetition (raw score recall = 3, 9, 10, 10, 12). Her rate of learning was at the lower end of the average range. After the presentation of an interference trial, she recalled 9 of the previous words from the original word list (average) and 9 over a longer 20 minute delay (average). Her recall improved when she was presented with a recognition test format. Specifically, she accurately recognized 15 target words (average) and had anaverage number of false positive errors (2 total). Ms. Scott was also administered measure of visual learning and memory that required her to study a series of individual designs, one at a time, for 10 seconds and recall the designs after an immediatedelay. The task includes one visual learning trial per design and a delayed recall/retention trial. She performed in the borderline range on the learning trials of the task; however, she retained 76% of the details (average) when asked to recall and recreate the designs after a delay. When presented with a recognition task, she was able to identify 6 of the designs correctly (average). Ms. Scott was also administered a measure of nonverbal problem-solving that required her to generate and flexibly alternate between card sorting strategies based on the feedback that she received fromthe examiner. Ms. Scott performed in the low average range on this task. After she achieved the first set, she attempted new strategies and demonstrated mental flexibility based on feedback from the examiner, to quickly achieve a second set. She struggled thereafter to appropriately integrate feedback and adapt her strategy to achieve any further sets. She was not overly perseverative in her response style. Finally, on a measure of fine motor speed and dexterity, which asked her to place and remove pegs from a grooved pegboard, Ms. Scott performed within the mildly impaired range (bilaterally). Speeded motor dexterity, as measured by the finger tapping test, fell in the low average range bilaterally. Congruent to her report in the clinical interview, Ms. Scott endorsed mild symptoms of anxiety (unable to control worry, worrying too much about different things) on the Generalized Anxiety Disorder-7(MORENA-7 =2, mild). Ms. Scott endorsed minimal symptoms of depression on the Patient Health Questionairre-9 (PHQ-9 = 4, minimal), including symptoms related to fatigue and troubles sleeping. Ms. Scott did not meet the cut-off score for clinically significant symptoms of PTSD on the Posttraumatic stress Check List-C (PCL-C= 22). SUMMARY OF RESULTS & INTEGRATION: Ms. Scott is a 57-year-old, right-handed, female with a history of repeated concussions who presented to today???s session with complaints of memory, irritability, and decision making difficulties since her most recent concussion in August 2017. Ms. Scott was referred for a neuropsychological evaluation by Leif Chin???NEETA Knowles at the [facility] to provide diagnostic clarification. A comprehensive neuropsychological assessment was conducted and Ms. Scott was a cooperative but mildly anxious participant. Optimal premorbid intellectual abilities were estimated as falling at the low end of the average range. Attention was average overall; however, fluctuations were noted. Cognitive speed and processing accuracy were solidly average. Although there was a degree of variability detected in her expressive language abilities and acquired verbal knowledge, her weaker performances were felt to be a reflection of her academic history rather than acquired cognitive dysfunction (i.e., weakest performances were seen on tasks that correlate strongly with educational background). Visuoperceptual and constructional abilities were generally within the average range, as were her nonverbal problem solving skills. Although new learning was subtly inefficient at times, Ms. Scott???s memory was intact for both auditory verbal and visual stimuli. Specifically, she retained 68-76% of the previously learned information. Ms. Scott exhibited mildly impaired speeded motor dexterity and low average motor speed (bilaterally). From a mood perspective, she continued to minimize her report of anxiety (mild) and depressive symptoms (minimal). DIAGNOSTIC IMPRESSIONS: Overall, Ms. Scott demonstrated a pattern of broadly intact cognition on neuropsychometric testing.Slight variability observed in her profile was felt to reflect her lower average premorbid verbal intellectual abilities combined with a degree of test-taking anxiety. While it is possible that Ms. Scott experienced more notable deficits in attention and memory immediately following her concussive injury, she may be assured that her memory abilities have returned to baseline. At this point in time, there is no evidence to support the presence of ongoing cognitive dysfunction secondary to her August 2017 concussion injury. DSM-V DIAGNOSES: Adjustment Disorder with Anxiety, No cognitive diagnosis. RECOMMENDATIONS: Consistent with her self-report that stress can overwhelm and ???muddle?? her thoughts, the anxietyshe was experiencing during the testing session appeared to introduce a degree of variability into her performance. Ms. 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 In this role she has to perform multiple responsibilities, such as managing medication, navigating guests, charting paperwork, and assisting the elderly with their daily needs (e.g., eating, dressing). In addition, short-staffing contributes to long work hours without regular breaks. Given the rather challenging work environment Ms. Scott works in, the following recommendations are offered: 1) Anxiety is likely to negatively impact on her ability to focus, concentrate, and retain information necessary to do her job well, leading her to be more prone to errors and oversights. Therefore, managing anxiety is an important part of ensuring adequate work performance in such a demanding environment. 2) Ms. Scott may consider participation in outpatient individual psychotherapy to learn helpful coping strategies to manage her anxiety and promote better sleep. She may benefit from behavioral therapeutic approaches, which will encourage her to examine the antecedents, behaviors, and consequences associated with her anxiety (applied behavioral analysis). This therapy will encourage her to select healthy adaptive behaviors in response to her anxiety (e.g., journaling her worries, taking a break, making a to-do list, creating reminder alerts in her phone) over unhealthy behaviors (e.g., working more quickly). She may seek these services from [facility] ([phone]). 3) Ms. Scott also may benefit from focusing therapeutic work on stress management strategies, such as progressive muscle relaxation, deep breathing, and guided imagery. These are skills may also benefit her sleep, as Ms. Scott reported that she struggled with falling and staying asleep. 4) It is also encouraged for her to practice proper sleep hygiene, including: creating a bedtime routine, following a regular sleep/wake time schedule, reducing exposure to screens late at night, minimizing light in her bedroom, and avoid lying in bed when awake. 5) Additionally, beginning a regular exercise regimen will also support a healthy sleep pattern and reduce her experience of anxiety. 6) In addition, for those times when Ms. Scott feels overwhelmed at work, it is recommended that she employ compensatory strategies to assist with her memory and ease her worries that things may be getting overlooked or forgotten. Specific strategies that may prove helpful for Ms. Scott include creating a daily routine, maintaining a calendar/agenda, writing things down in a centralized notebook (i.e., with a separate page for each patient and important ???notes?? ). 7) In addition, she is encouraged to keep a clean work space, create a checklist of tasks she must complete each shift, and make notes of specific work procedures, passwords, usernames (that she can access in times when she is uncertain of feeling fatigued or ???fuzzy?? ). It is also encouraged that Ms. Scott take frequent breaks and use relaxation strategies (such as progressive muscle relaxation, deep breathing) when she notices symptoms of anxiety or overwhelm arising. Utilizing these strategiesand continuing to treat subtle symptoms of anxiety will likely help to optimize her functioning bothat work and in daily life. SERVICES: Pertinent information was obtained by reviewing the electronic medical record as well as through an individual interview a paid internship and I conducted with the patient. I selected, administered a selection of the tests (WRAT-4 Reading, [id number] test), integrated and interpreted thetests and generated this report. A trained examiner and paid internship assisted with the administration and scoring of a selection of the neuropsychometric tests, please see their attached documentation for time spent. Today???s evaluation consisted of 1 hour of 43931, 3 hours of 42079, and 3 hoursof 05561. Thank you for allowing us to participate in Ms. Scott???s care. Please contact me with any questions regarding the content of this report. Dipika Vee MA Leaf Stripper Cinthia Kat, PhD, LP, ABPP Clinical Neuropsychologist, LP#[id number] Board Certified in Clinical Neuropsychology [facility] Neuropsychology Section ER AIDE Historical Provider - 12/20/2017 1:30 PM CST The patient was seen for a neuropsychological evaluation for the purposes of diagnostic clarification and treatment planning. 2 hours and 15 minutes of [id number] testing were provided by this clinical writer. The patient was cooperative with testing. No concerns were brought to my attention. Please see Dr. Brian purcell's report for a detailed description of the charges and interpretation and integration ofthe findings. Historical Provider - 12/20/2017 10:31 AM CST The patient was seen for a neuropsychological evaluation for the purposes of diagnostic clarification and treatment planning. 25 minutes of [id number] testing were provided by this clinical writer. The patient was cooperative with testing. No concerns were brought to my attention. Please see Dr. Kat's report for a detailed description of the charges and interpretation and integration of the findings. 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
--- OUTSIDE RECORDS SUMMARY | 2022-01-05 11:35 | XMS_ITS | Encounter Summary ---
:1960 Author Organization [facility] Address [address] [place] [address] Care Team Providers Name Role Phone Kleber Ledesma PA-C Primary Care Provider [phone] Kleber Ledesma PA-C Unavailable [phone] Kleber Ledesma PA-C Unavailable [phone] Sasha Tai RN Unavailable Unavailable Junie Rm PA-C Unavailable Patricia Brown RN Unavailable Kleber Ledesma PA-C Unavailable [phone] Encounter Details Date Type Department Care Team Description 10/28/2017 Records - [facility] CONVERSION Scan, Non-Provider Social History Tobacco Use Types Packs/Day Years [...] COVID-19 01/08/2020 01/08/2020 01/09/2020 1:3 2 AM SATELLITE DISH INSTALLER COVID-19 01/08/2020 01/08/2020 01/29/2020 11:40 PM SATELLITE DISH INSTALLER Rule Out COVID-19 12/15/2020 12/15/202012/1612/16/2020 2:5 5 PM SATELLITE DISH INSTALLER Rule Out COVID-19 12/23/2020 12/23/2020 12/23/2020 6:3 0 PM SATELLITE DISH INSTALLER Assessment Noted Time PHQ-9 Depression Total Score: 11 10/01/2017 7:03 AM CD T documented as of this encounter Care Teams Para Educator Relationship Specialty Start Date End Date Kleber Ledesma PCP - General Physician Expressive Art Therapist - 05/15/14 RACHNA Valderrama Medical Kleber Ledesma PCP - Assigned PCP 09/19/17 9 RACHNA Valderrama [address] [address] [place], [place] [id number] Kleber Ledesma Assigned PCP 09/19/17 06/01/20 RACHNA Valderrama [address] [address] [place], [place] [id number] Sasha Tai, RN Personal Advocate & Family Practice 11/02/19 02/14/20 Liaison (PAL) Junie Rm, Assigned PCP 06/02/20 06/08/20 RACHNA [address] [address] [place], [place] [id number] Patricia Brown, RN Clinic Sap Pp Consultant 06/03/20 06/03/20 Kleber Ledesma Assigned PCP 06/09/20 RACHNA Valderrama [address] [address] [place], [place] [id number] documented as of this encounter
--- OUTSIDE RECORDS SUMMARY | 2022-01-05 11:35 | XMS_ITS | Encounter Summary ---
:1960 Author Organization [facility] Address [address] [place] [id number] Care Team Providers Name Role Phone Kleber Ledesma PA-C Primary Care Provider [phone] Kleber Ledesma PA-C Unavailable [phone] Kleber Ledesma PA-C Unavailable [phone] Reason for Visit Reason Comments Recheck Medication citalopram (CELEXA) 10 MG ta blet Encounter Details Date Type Department Care Team Description 11/01/2017 Office Visit [facility] Kleber Ledesma f or prophylactic vaccination and inoculation against influenza (Primary Dx); Clinic [place] RACHNA Valderrama Post concussive syndrome [place] [address] [facility], [address] [place] [address] [phone] Social History Tobacco Use Types Packs/Day Years [...] Sign Reading Time Taken Comments Blood Pressure 112/66 11/01/2017 11:40 AM CDT Pulse 64 11/01/2017 11:40 AM CDT Temperature 36.6 ??C (97.9 ??F) 11/01/2017 11:40 AM CDT Respiratory Rate 16 11/01/2017 11:40 AM CDT Oxygen Saturation - - Inhaled Oxygen Concentration - - Weight 67.8 kg (149 lb 6.4 oz) 11/01/2017 11:40 AM CDT Height - - Body Mass Index 27.33 10/28/2017 8:20 AM CDT documented in this encounter Progress Notes Gabrielle Garcia MA - 11/01/2017 12:25 PM CDT Injectable Influenza Immunization Documentation 1. Is the person to be vaccinated sick today? No 2. Does the person to be vaccinated have an allergy to a component of the vaccine? No Egg Allergy Algorithm Link 3. Has the person to be vaccinated ever had a serious reaction to influenza vaccine in the past? No 4. Has the person to be vaccinated ever had Guillain-Olea?? syndrome? No Form completed by Gabrielle Garcia MA Kleber Ledesma PA-C - 11/01/2017 11:20 AM CDT SUBJECTIVE: Amie Scott is a 57 year old female who presents to clinic today for the following health issues: History of Present Illness Diet: Regular (no restrictions) Frequency of exercise: 1 day/week Duration of exercise: 15-30 minutes Taking medications regularly: Yes Medication side effects: Lightheadedness Additional concerns today: No Medication Followup of CELEXA 10 mg ?? Taking Medication as prescribed: yes ?? Side Effects: None ?? Medication Helping Symptoms: Yes, patient thinks. Patient feels better overall. Was having some side effects at first and was not sure if she would stay on it. She did push through it and now thinks it is better. She still has bad days with her mood, also memory is difficult andthis is maybe because of concussion. Still seeing concussion management. Problem list and histories reviewed & adjusted, as indicated. Additional history: as documented ROS: Constitutional, HEENT, cardiovascular, pulmonary, gi and gu systems are negative, except as otherwise noted. OBJECTIVE: BP 112/66 (BP Location: Right arm, Patient Position: Chair, Cuff Size: Adult Regular) Pulse 64 Temp 97.9 ??F (36.6 ??C) (Oral) Resp 16 Wt 149 lb 6.4 oz (67.8 kg) LMP 02/22/2010 BMI 27.33 kg/m2 Body mass index is 27.33 kg/(m^2). GENERAL: healthy, alert and no distress MS: no gross musculoskeletal defects noted, no edema SKIN: no suspicious lesions or rashes PSYCH: mentation appears normal and affect flat Diagnostic Test Results: none ASSESSMENT/PLAN: 1. Post concussive syndrome She has made definite improvement on this medication. Agreeable to stay on this. Will continue with concussion management. PHQ-9 SCORE 09/27/2017 09/30/2017 11/01/2017 Total Score MyChart - 11 (Moderate depression) - Total Score 15 11 3 - citalopram (CELEXA) 10 MG tablet; Take 1 tablet (10 mg) by mouth daily Dispense: 90 tablet; Refill: 0 2. Need for prophylactic vaccination and inoculation against influenza - FLU VACCINE, (RIV4) RECOMBINANT GODDARD , IM (FluBlok, egg free) [99719]- >18 YRS (FMG recommended 50-64 YRS) - Vaccine Administration, Initial [25962] Kleber Ledesma PA-C [facility] documented in this encounter Nursing Notes Maricarmen Eller CMA - 11/01/2017 11:20 AM CDT Chief Complaint Patient presents with ??? Recheck Medication citalopram (CELEXA) 10 MG tablet Initial BP 112/66 (BP Location: Right arm, Patient Position: Chair, Cuff Size: Adult Regular) Pulse 64 Temp 97.9 ??F (36.6 ??C) (Oral) Resp 16 Wt 149 lb 6.4 oz (67.8 kg) LMP 02/22/2010 BMI 27.33 kg/m2 Estimated body mass index is 27.33 kg/(m^2) as calculated from the following: Height as of 10/28/17: 5' 2 (1.575 m). Weight as of this encounter: 149 lb 6.4 oz (67.8 kg). BP completed using cuff size regular right arm Maricarmen Eller CMA documented in this encounter Plan of Treatment Not on filedocumented as of this encounter Visit Diagnoses Diagnosis Need for prophylactic vaccination and in oculation against influenza - Primary Post concussive syndrome Postconcussion syndrome documented in this encounter Additional Health Concerns Assessment Noted Time PHQ-9 Depression Total Score: 3 11/02/2017 7:23 AM CDT documented as of this encounter Care Teams Admissions Director Relationship Specialty Start Date End Date Kleber Ledesma, PCP - General Physician Can Technician - 05/15/14 RACHNA Medical Kleber Ledesma, PCP - Assigned PCP 09/19/17 04/12/18 RACH[place] [address] [place], [place] [id number] Kleber Ledesma, Assigned PCP 09/19/17 [place] [address] [address] [place] [id number] documented as of this encounter
--- OUTSIDE RECORDS SUMMARY | 2022-01-05 11:35 | XMS_ITS | Encounter Summary ---
:1960 Author Organization [facility] Address [address] [place] [address] Care Team Providers Name Role Phone Kleber Ledesma PA-C Primary Care Provider [phone] Kleber Ledesma PA-C Unavailable [phone] Kleber Ledesma PA-C Unavailable [phone] Reason for Visit Reason Onset Date Comments Patient Reminder 12/22/2017 appointment reminder [facility] Encounter Details Date Type Department Care Team Description 12/22/2017 Telephone [facility] Ashley Elizabeth, Patient Reminder [address] [facility] (appointment reminder [address] Floor VML) [place] [address] Social History Tobacco Use Types [...] documented as of this encounter Care Teams Coat Operator Relationship Specialty Start Date End Date Kleber Ledesma PCP - General Physician Senior Credit Officer - 05/15/14 RACHNA Medical Kleber Ledesma PCP - Assigned PCP 09/19/17 04/12/18 PA-C [id number] [address] [place], [place] [address] Kleber Ledesma, Assigned PCP 09/19/17 PA-C [id number] [place] [place], [place] [id number] documented as of this encounter
--- OUTSIDE RECORDS SUMMARY | 2022-01-05 11:35 | XMS_ITS | Encounter Summary ---
:1960 Author Organization [facility] Address [address] [place] [id number] Care Team Providers Name Role Phone Kleber Ledesma PA-C Primary Care Provider [phone] Kleber Ledesma PA-C Unavailable [phone] Kleber Ledesma PA-C Unavailable [phone] Reason for Referral Mental Health Outpatient - Closed Specialty Diagnoses / Procedures Referred By Contact Refer red To Contact Neuropsychology Diagnoses Concussion without loss of consciousness, subsequent encounter Adjustment disorder, unspecified type Memory difficulties Leif Alberto PA-C [address] [place] [address] Referral ID Status Reason Start Date Expiration Date Visits Requ ested Visits Authorized [id number] Closed 10/28/2017 10/28/2018 1 1 Consultation - Closed Specialty Diagnoses / Procedures Referred By Contact Refer red To Contact Surgery Diagnoses Adjustment disorder, unspecified type Concussion without loss of consciousness, subsequent encounter Memory difficulties Leif Alberto PA-C [facility] [address] [place] [phone] Phone: Fax: Referral ID Status Reason Start Date Expiration Date Visits Requ ested Visits Authorized [id number] Closed 10/28/2017 10/28/2018 1 1 Reason for Visit Reason Comments Head Injury Concussion 09/01/2017- fall, striking head against metal door frame Encounter Details Date Type Department Care Team Description 10/28/2017 [facility] Leif Alberto Concussion without loss of c onsciousness, subsequent encounter (Primary Dx); 9[address] [facility] [address] Tony PA-C Adjustment disorder, unspeci fied type; [address] [place] [address] Social History Tobacco Use Types [...] Sign Reading Time Taken Comments Blood Pressure 117/74 10/28/2017 8:20 AM CDT Pulse 60 10/28/2017 8:20 AM CDT Temperature - - Respiratory Rate - - Oxygen Saturation 97% 10/28/2017 8:20 AM CDT Inhaled Oxygen Concentration - - Weight 67.1 kg (148 lb) 10/28/2017 8:20 AM CDT Height 157.5 cm (5' 2) 10/28/2017 8:20 AM CDT Body Mass Index 27.07 10/28/2017 8:20 AM CDT documented in this encounter Patient Instructions Patient InstructionsLeif Alberto PA-C - 10/28/2017 8:00 AM CDT [facility] will reach out to you to schedule neuropsychology testing. [facility] will call you to schedule a follow-up here in 6 weeks. documented in this encounter Progress Notes Leif Alberto PA-C - 10/28/2017 8:00 AM CDT [facility] Follow up October 28, 2017 Assessment: (S06.0X0D) Concussion without loss of consciousness, subsequent encounter (primary encounter diagnosis) (F43.20) Adjustment disorder, unspecified type (R41.3) Memory difficulties Amie Scott is a 57 year old female who presents for follow-up evaluation of concussion. She is feeling better all the way around. She has occasional bouts of dizziness and headaches, but this isinfrequent. Mood is much better after starting Celexa. She is needing to nap less often. She was still struggles with sleep reports that she wakes up at least twice during the night, often having a hard time falling back to sleep. She may accumulate 6 hours on average, though she tries for8. She is usually up by 4 AM as her fianc?? gets up at this time. Memory is she was biggest complaint. Though it does not occur on a daily basis, some days she feels she cannot remember anything. She is back to work at 6 hours, 5 days per week and otherwise unrestricted. She reports that work in general is very stressful at the moment. During her 6 hours she essentially has no break. 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 She does not eat when she is at work due to this responsibility. She has not been exercising much. We completed the MOCA together today. Her total score was 25/30 today, indicating some mild impairment. She had a poor cube drawing. She made a small mistake on the clock contour was able to correct this without prompt. Could not name the camel, after struggling called it giraffe. She was able to generate 9 words on verbal fluency test. On abstraction she had difficulty correlating the similaritiesbetween watch and ruler. Delayed recall was 4/5, and she was able to remember Jocelin with flower category clue. Overall my impression is that Amie has a very stressful work life that is impacting her mood and sleep, and this in turn is impacting her cognition. I find it interesting that she does not endorse cognitive deficits that occur on a daily basis and lead me to have consideration that this may be a functional issue based on the above problems. On the other hand she did have some deficits captured on the MOCA test. I recommend Amie undergo neuropsychology testing to better characterize these deficits and for assistance with care planning moving forward. In the interim she may advance to 8 hours, 5 days per week. I highly recommend that she carry some snacks with her such as a Abran to eat throughout the day to keep her strength up bar. She would also benefit from increasing her water intake throughout the day. She has been sedentary; I highly recommend that she start exercising at least 3 days per week for its benefits to cognition, mood, and energy. She actually already has plans to join the [facility]. I like to follow-up with Amie in 6 weeks to review neuropsychology results and to assess her progress. Plan: 1. Biggest concern of pt addressed: cognitive deficits 2. Work restrictions- Up to 8 hrs 5 days a week 3. Activity recommendations- moderate, low impact aerobic activty up to 30 mins, at least 3 days perweek 4. Referral to: a. Neuropsychology: Indications/Goals: evaluation including further characterization of cognitive and mood deficits, assistance with care planning moving forward. 5. Follow up here in 6 weeks. 6. Letters written today for: work AVS Instructions: [facility] will reach out to you to schedule neuropsychology testing. [facility] will call you to schedule a follow-up here in 6 weeks. HPI Date of injury: 09/01/2017 Mechanism: slip/fall at work, strike to L head, no LOC QRC: Mario Conner [phone] cell [phone] fax [email or web address] Work: 6 hours, 5 days? Celexa- mood- better for sure. Feeling better all the way around. Occasional dizzy and GODDARD's. Sleep- still struggling. Waking twice during the night. Sometimes has a hard time falling back to sleep. Up by 4 am- fiance gets up then. Might accumulate 6 hours on average- tries for 8. Napping less Memory is the biggest issue. This is not daily. Some days feels cannot remember anything. Work has been very stressful right now. There for 6 hours and there is no break. Many patients are declining. Does not eat when she's at work. 13-14 residents, no backup. Looking to join a health club. Current Symptoms: CONCUSSION SYMPTOMS ASSESSMENT 09/30/2017 10/28/2017 Headache or Pressure In Head 0 - none 0 - none Upset Stomach or Throwing Up 0 - none 0 - none Problems with Balance 0 - none 0 - none Feeling Dizzy 0 - none 0 - none Sensitivity to Light 1 - mild 2 - mild to moderate Sensitivity to Noise 1 - mild 0 - none Mood Changes 0 - none 0 - none Feeling sluggish, hazy, or foggy 1 - mild 0 - none Trouble Concentrating, Lack of Focus 1 - mild 2 - mild to moderate Motion Sickness 0 - none 0 - none Vision Changes 1 - mild 3 - moderate Memory Problems 1 - mild 3 - moderate Feeling Confused 0 - none 0 - none Neck Pain 0 - none 0 - none Trouble Sleeping 3 - moderate 2 - mild to moderate Total Number of Symptoms 7 5 Symptom Severity Score 9 12 REVIEW OF SYSTEMS: Refer to DocFlowsheets: Concussion symptoms GASTROINTESTINAL: no N/V MUSCULOSKELETAL: no neck pain NEUROLOGIC: intermittent GODDARD, dizziness. No paresthesia or focal weakness PSYCHIATRIC: see PHQ-9 and GAD7 In response to the scores of the GAD7 and PHQ9 we have acknowledged and addressed both the anxiety and depression issues the patient is experiencing (see assessment and plan) Of note, the last questionon the PHQ9 done today is negative. 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 Current medications: Reconciled in chart today by clinic staff and reviewed by me. Current Outpatient Prescriptions Medication ??? atenolol-chlorthalidone (TENORETIC) 50-25 MG per tablet ??? citalopram (CELEXA) 10 MG tablet ??? simvastatin (ZOCOR) 20 MG tablet ??? aspirin 81 MG tablet ??? CALCIUM CARBONATE PO ??? Cholecalciferol (VITAMIN D3 PO) ??? Coenzyme Q10 (CO Q 10 PO) ??? FOLIC ACID PO ??? Ginkgo Biloba 40 MG TABS ??? meloxicam (MOBIC) 7.5 MG tablet ??? Multiple Vitamins-Minerals (OCUVITE PO) ??? [place]-3 Fatty Acids (OMEGA-3 FISH OIL PO) ??? oxybutynin (DITROPAN XL) 5 MG 24 hr tablet ??? vitamin E (VITAMIN E) 200 UNIT capsule No current facility-administered medications for this visit. OBJECTIVE: BP 117/74 Pulse 60 Ht 5' 2 Wt 148 lb LMP 02/22/2010 SpO2 97% BMI 27.07 kg/m2 Wt Readings from Last 4 Encounters: 10/04/17 154 lb 3.2 oz 09/30/17 150 lb 08/20/18 153 lb 09/20/17 151 lb 4.8 oz EXAM: General: oriented to person, place, time. Head: NC/AT Neck: Supple, FROM Lungs: speaking in full sentences comfortably Heart: no LE edema Psych: Depressed and anxious mood, congruent affect. No SI. Normal speech, linear thought process. Neuro: CN II-XII grossly intact. Normal tone, gait, and coordination. Cognitive: MOCA - Visuospatial/Executive: 05/13. Poor cube draw - Namin/3. giraffe vs camel - Attention: 07/14 - Language: 2/3- fluency - Abstraction: 02/09- could not correlate watch and ruler - Delayed Recall: 05/13- jocelin with category clue (flower) - Orientation: 07/14 - Total: Time spent in one-on-one evaluation and discussion with patient regarding nature of problem, course,prior treatments, and therapeutic options, >50% of this 40 minute visit was spent in counseling including this patients personal symptom triggers and education thereof. documented in this encounter Nursing Notes Ashley Elizabeth LPN - 10/28/2017 8:00 AM CDT Chief Complaint Patient presents with ??? Head Injury Concussion 09/01/2017- fall, striking head against metal door frame Vitals: 10/28/17 0820 BP: 117/74 Pulse: 60 SpO2: 97% Weight: 67.1 kg (148 lb) Height: 1.575 m (5' 2) Body mass index is 27.07 kg/(m^2). Chief Complaint Patient presents with ??? Head Injury Concussion 09/01/2017- fall, striking head against metal door frame Vitals: 10/28/17 0820 BP: 117/74 Pulse: 60 SpO2: 97% Weight: 67.1 kg (148 lb) Height: 1.575 m (5' 2) Body mass index is 27.07 kg/(m^2). MORENA-7 SCORE 09/27/2017 09/30/2017 Total Score - 7 (mild anxiety) Total Score 10 7 PHQ-9 SCORE 09/27/2017 09/30/2017 Total Score MyChart - 11 (Moderate depression) Total Score 15 11 CONCUSSION SYMPTOMS ASSESSMENT 09/30/2017 10/28/2017 Headache or Pressure In Head 0 - none 0 - none Upset Stomach or Throwing Up 0 - none 0 - none Problems with Balance 0 - none 0 - none Feeling Dizzy 0 - none 0 - none Sensitivity to Light 1 - mild 2 - mild to moderate Sensitivity to Noise 1 - mild 0 - none Mood Changes 0 - none 0 - none Feeling sluggish, hazy, or foggy 1 - mild 0 - none Trouble Concentrating, Lack of Focus 1 - mild 2 - mild to moderate Motion Sickness 0 - none 0 - none Vision Changes 1 - mild 3 - moderate Memory Problems 1 - mild 3 - moderate Feeling Confused 0 - none 0 - none Neck Pain 0 - none 0 - none Trouble Sleeping 3 - moderate 2 - mild to moderate Total Number of Symptoms 7 5 Symptom Severity Score 9 12 documented in this encounter Plan of Treatment Scheduled Referrals Name Type Priority Associated Diagnoses Order S chedule CONCUSSION MIRROR FRAMER Referral Routine Adjustment disorder, Ordered: REFERRAL unspecified type 10/28/2017 Concussion without loss of consciousness, subsequent encou nter Memory difficulties NEUROPSYCHOLOGY REFERRAL Referral Routine Concussion witho ut loss Ordered: of consciousness, 10/28/2017 subsequent encou nter Adjustment disorder, unspecified type Memory difficulties documented as of this encounter Visit Diagnoses Diagnosis Concussion without loss of consciousness , subsequent encounter - Primary Adjustment disorder, unspecified type Memory difficulties Memory loss documented in this encounter Additional Health Concerns Assessment Noted Time PHQ-9 Depression Total Score: 11 10/01/2017 7:03 AM CD T documented as of this encounter Care Teams Certified Pharmacist Assistant Relationship Specialty Start Date End Date Kleber Ledesma, PCP - General Physician Smocker - 05/15/14 PA-C Medical Kleber Ledesma, PCP - Assigned PCP 09/19/17 04/12/18 PA-C [id number] [id number] Kleber Ledesma, Assigned PCP 09/19/17 PA-C [id number] [address]ES [id number] documented as of this encounter
--- OUTSIDE RECORDS SUMMARY | 2022-01-05 11:35 | XMS_ITS | Encounter Summary ---
:1960 Author Organization [facility] Address [address] [place] [address]. [place] [address] Care Team Providers Name Role Phone Kleber Ledesma PA-C Primary Care Provider [phone] Kleber Ledesma PA-C Unavailable [phone] Kleber Ledesma PA-C Unavailable [phone] Reason for Visit Reason Comments Pharyngitis Encounter Details Date Type Department Care Team Description 11/08/2017 Office Visit [facility] Kleber Ledesma Acute pharyngitis, [facility] [place] RACHNA Valderrama unspecified etiology [place] [address] [facility] (Primary Dx) [facility], [address] [place] [id number] [place] [address] (Wo rk) [address] [phone] Social History Tobacco Use Types Packs/Day Years [...] Sign Reading Time Taken Comments Blood Pressure 100/60 11/08/2017 10:38 AM CDT Pulse 56 11/08/2017 10:38 AM CDT Temperature 36.7 ??C (98 ??F) 11/08/2017 10:38 AM CDT Respiratory Rate 16 11/08/2017 10:38 AM CDT Oxygen Saturation - - Inhaled Oxygen Concentration - - Weight 67.1 kg (148 lb) 11/08/2017 10:38 AM CDT Height - - Body Mass Index 27.07 10/28/2017 8:20 AM CDT documented in this encounter Progress Notes Kleber Ledesma PA-C - 11/08/2017 10:40 AM CDT SUBJECTIVE: Amie Scott is a 57 year old female who presents to clinic today for the following health issues: Acute Illness Acute illness concerns: sore throat Onset: 1.5 weeks ?? Fever: no ?? Chills/Sweats: YES- chills ?? Headache (location?): YES ?? Sinus Pressure:no ?? Conjunctivitis: no ?? Ear Pain: YES: left ?? Rhinorrhea: no ?? Congestion: no ?? Sore Throat: YES ?? Cough: YES ?? Wheeze: no ?? Decreased Appetite: no ?? Nausea: no ?? Vomiting: no ?? Diarrhea: YES ?? Dysuria/Freq.: no ?? Fatigue/Achiness: YES ?? Sick/Strep Exposure: YES Therapies Tried and outcome: airborne, advil On and off sore throat. Will not go away. Advil helps but symptoms keep coming back. No fever or other URI symptoms. is also sick with the same. Problem list and histories reviewed & adjusted, as indicated. Additional history: as documented Reviewed and updated as needed this visit by clinical staff Tobacco Allergies Meds Med Hx Surg Hx Fam Hx Soc Hx Reviewed and updated as needed this visit by Provider ROS: Constitutional, HEENT, cardiovascular, pulmonary, gi and gu systems are negative, except as otherwise noted. OBJECTIVE: BP 100/60 (BP Location: Right arm, Patient Position: Sitting, Cuff Size: Adult Regular) Pulse 56 Temp 98 ??F (36.7 ??C) (Oral) Resp 16 Wt 148 lb (67.1 kg) LMP 02/22/2010 BMI 27.07 kg/m2 Body mass index is 27.07 kg/(m^2). GENERAL: healthy, alert and no distress HENT: normal cephalic/atraumatic, ear canals and TM's normal, nose and mouth without ulcers or lesions, oral mucous membranes moist and tonsillar erythema NECK: no adenopathy, no asymmetry, masses, or scars and thyroid normal to palpation RESP: lungs clear to auscultation - no rales, rhonchi or wheezes MS: no gross musculoskeletal defects noted, no edema SKIN: no suspicious lesions or rashes PSYCH: mentation appears normal and affect flat Diagnostic Test Results: Results for orders placed or performed in visit on 11/08/17 (from the past 24 hour(s)) Strep, Rapid Screen Result Value Ref Range Specimen Description Throat Rapid Strep A Screen NEGATIVE: No Group A streptococcal antigen detected by immunoassay, await culture report. ASSESSMENT/PLAN: 1. Acute pharyngitis, unspecified etiology Recommended supportive cares including warm salt water gargles, Tylenol/Ibuprofen as directed OTC, rest, humidifier. Follow-up if symptoms are worsening or not improving as expected/discussed. - Strep, Rapid Screen Kleber Ledesma PA-C [facility] documented in this encounter Plan of Treatment Not on filedocumented as of this encounter Procedures Procedure Name Priority Date/Time Associated Diagnosis Comme nts BETA HEMOLYTIC Routine 11/08/2017 11:11 AM Acute pharyngitis, Results for this STREP GROUP A CDT unspecified etiology proced ure are in CULTURE the results section. RAPID STREP SCREEN Routine 11/08/2017 10:41 AM Acute pharyngit is, Results for this THROAT SWAB CDT unspecified etiology procedu re are in the results section. documented in this encounter Results Beta strep group A culture (11/08/2017 11:11 AM CDT) Component Value Ref Test Analysis Performed At [facility] Range Method Time Signature Specimen Throat [facility] Culture Micro No beta 11/09/2017 [place] hemolytic 10:30 AM [facility] Streptococcus CDT [place] Group A isolated Specimen Anatomical Collection Method Collection Time Receive d Time (Source) Location / / Volume Laterality Specimen from 11/08/2017 11:11 11/08/2017 throat AM CDT 11:16 AM CDT (specimen) Kleber Ledesma PA-C LAB - MICRO GENERAL ORDERABL ES Performing Organization Address City/State/ZIP Code Phon e Number [facility] [id number] [place] [address] Strep, Rapid Screen (11/08/2017 10:41 AM CDT) Component Value Ref Test Analysis Performed At [facility] Range Method Time Signature Specimen Throat [facility] Rapid Strep A NEGATIVE: No 11/08/2017 [place] Screen Group A 10:55 AM [facility] streptococcal CDT [place] antigen detected by immunoassay, await culture report. Specimen Anatomical Collection Method Collection Time Receive d Time (Source) Location / / Volume Laterality Specimen from 11/08/2017 10:41 11/08/2017 throat AM CDT 10:46 AM CDT (specimen) Kleber Ledesma PA-C LAB - MICRO GENERAL ORDERABL ES Performing Organization Address City/State/ZIP Code Phon e Number [facility] [place], [place] [id number] documented in this encounter Visit Diagnoses Diagnosis Acute pharyngitis, unspecified etiology - Primary documented in this encounter Additional Health Concerns Assessment Noted Time PHQ-9 Depression Total Score: 3 11/02/2017 7:23 AM CDT documented as of this encounter Care Teams Airborne Weapons Technical Manager Relationship Specialty Start Date End Date Kleber Ledesma, PCP - General Physician Consulting Project Director - 05/15/14 [facility] Kleber Ledesma, PCP - Assigned PCP 09/19/17 04/12/18 [place] [id number] [address] REES [phone] Kleber Ledesma, Assigned PCP 09/19/17 [place] [id number] LUZ[address] REES [phone] documented as of this encounter
--- OUTSIDE RECORDS SUMMARY | 2022-01-05 11:35 | XMS_ITS | Encounter Summary ---
:1960 Author Organization [place] Address [address] [place] [address] Care Team Providers Name Role Phone Kleber Ledesma PA-C Primary Care Provider [phone] Kleber Ledesma PA-C Unavailable [phone] Kleber Ledesma PA-C Unavailable [phone] Reason for Visit Reason Comments URI Encounter Details Date Type Department Care Team Description 12/27/2017 Office Visit [facility] Angelia Castañeda Viral U RI with cough (Primary Dx); Clinic [place] ETHAN Nelson MICROBIOLOGY LAB TECHNICIAN Acute pharyngitis, unspecified etiology [place] [address] [facility], [address] [place] [address] [place], [place] [phone] (Wo rk) [address] [phone] Social History Tobacco Use Types Packs/Day Years [...] Sign Reading Time Taken Comments Blood Pressure 108/60 12/27/2017 11:53 AM CIGARETTE TESTER Pulse 84 12/27/2017 11:53 AM CIGARETTE TESTER Temperature 37.1 ??C (98.8 ??F) 12/27/2017 11:53 AM CIGARETTE TESTER Respiratory Rate 16 12/27/2017 11:53 AM CIGARETTE TESTER Oxygen Saturation 97% 12/27/2017 11:53 AM CIGARETTE TESTER Inhaled Oxygen Concentration - - Weight 64.9 kg (143 lb) 12/27/2017 11:53 AM CIGARETTE TESTER Height 157.5 cm (5' 2) 12/27/2017 11:53 AM CIGARETTE TESTER Body Mass Index 26.16 12/27/2017 11:53 AM CIGARETTE TESTER documented in this encounter Progress Notes Angelia Castañeda, ETHAN MICROBIOLOGY LAB TECHNICIAN - 12/27/2017 11:40 AM CST SUBJECTIVE: Amie Scott is a 57 year old female who presents to clinic today for the following health issues: Acute Illness Acute illness concerns: cough, sore throat, congestion Onset: x 4-5 days ?? Fever: Yes--low grade for 2 days ?? Chills/Sweats: no ?? Headache (location?): YES ?? Sinus Pressure:YES- some ?? Conjunctivitis: no ?? Ear Pain: no ?? Rhinorrhea: no ?? Congestion: YES ?? Sore Throat: YES-exposure to strep ?? Cough: YES-with shortness of breath, worsening over time ?? Wheeze: YES ?? Decreased Appetite: YES- less ?? Nausea: no ?? Vomiting: no ?? Diarrhea: no ?? Dysuria/Freq.: no ?? Fatigue/Achiness: YES, bodyaches ?? Sick/Strep Exposure: YES- child had strep Therapies Tried and outcome: tylenol and advil as needed Cough is the most bothersome. Sometimes cough is productive. C/o post nasal drainage. Ex-smoker. Problem list and histories reviewed & adjusted, as indicated. Additional history: as documented Current Outpatient Prescriptions Medication Sig Dispense Refill ??? atenolol-chlorthalidone (TENORETIC) 50-25 MG per tablet TAKE ONE TABLET BY MOUTH EVERY DAY 90 tablet 3 ??? CALCIUM CARBONATE PO Take 2,400 mg by mouth daily ??? Cholecalciferol (VITAMIN D3 PO) Take 2,000 Units by mouth daily ??? citalopram (CELEXA) 10 MG tablet Take 1 tablet (10 mg) by mouth daily 90 tablet 0 ??? Coenzyme Q10 (CO Q 10 PO) Take 100 mg by mouth 2 times daily ??? FOLIC ACID PO Take 1 mg by mouth daily ??? Ginkgo Biloba 40 MG TABS Take 120 mg by mouth daily ??? meloxicam (MOBIC) 7.5 MG tablet Take 1 tablet (7.5 mg) by mouth daily 90 tablet 3 ??? Multiple Vitamins-Minerals (OCUVITE PO) Take 1 tablet by mouth daily ??? [place]-3 Fatty Acids (OMEGA-3 FISH OIL PO) Take 2.4 g by mouth daily ??? oxybutynin (DITROPAN XL) 5 MG 24 hr tablet Take 1 tablet (5 mg) by mouth daily 30 tablet 1 ??? simvastatin (ZOCOR) 20 MG tablet TAKE ONE TABLET BY MOUTH AT BEDTIME 90 tablet 2 ??? vitamin E (VITAMIN E) 200 UNIT capsule Take 400 Units by mouth daily ??? aspirin 81 MG tablet Take 81 mg by mouth daily Allergies Allergen Reactions ??? No Known Drug Allergies Reviewed and updated as needed this visit by clinical staff Reviewed and updated as needed this visit by Provider ROS: Constitutional, HEENT, cardiovascular, pulmonary, gi and gu systems are negative, except as otherwise noted. OBJECTIVE: BP 108/60 (BP Location: Right arm, Patient Position: Chair, Cuff Size: Adult Regular) Pulse 84 Temp 98.8 ??F (37.1 ??C) (Oral) Resp 16 Ht 5' 2 (1.575 m) Wt 143 lb (64.9 kg) LMP 02/22/2010 SpO2 97% BMI 26.16 kg/m2 Body mass index is 26.16 kg/(m^2). GENERAL: healthy, alert and no distress HENT: ear canals and TM's normal, nose and mouth without ulcers or lesions, tonsillar erythema, inflamed, MMM NECK: no adenopathy, no asymmetry, masses, or scars and thyroid normal to palpation RESP: lungs clear to auscultation - no rales, rhonchi or wheezes, normal effort CV: regular rate and rhythm, normal S1 S2, no S3 or S4, no murmur, click or rub SKIN: no suspicious lesions or rashes Diagnostic Test Results: Results for orders placed or performed in visit on 12/27/17 Strep, Rapid Screen Result Value Ref Range Specimen Description Throat Rapid Strep A Screen NEGATIVE: No Group A streptococcal antigen detected by immunoassay, await culture report. ASSESSMENT/PLAN: 1. Acute pharyngitis, unspecified etiology RST neg. - Strep, Rapid Screen - Beta strep group A culture 2. Viral URI with cough Continue supportive measures; rest, fluids, OTC expectorant/decongestant, humidifier, neti pot, tylenol/ibuprofen as needed. - albuterol (PROAIR HFA/PROVENTIL HFA/VENTOLIN HFA) 108 (90 Base) MCG/ACT inhaler; Inhale 2 puffs into the lungs every 6 hours as needed for shortness of breath / dyspnea or wheezing (cough) Dispense: 1 Inhaler; Refill: 0 - benzonatate (TESSALON) 100 MG capsule; Take 1 capsule (100 mg) by mouth 3 times daily as needed for cough Dispense: 30 capsule; Refill: 0 F/u as needed if no improvement in 1 week; sooner if worsening symptoms Angelia Castañeda APRN CNP [facility] RETTE TESTER documented in this encounter Plan of Treatment Not on filedocumented as of this encounter Procedures Procedure Name Priority Date/Time Associated Diagnosis Comme nts BETA HEMOLYTIC Routine 12/27/2017 12:07 PM Acute pharyngitis, Results for this STREP GROUP A CIGARETTE TESTER unspecified etiology proced ure are in CULTURE the results section. RAPID STREP SCREEN Routine 12/27/2017 11:54 AM Acute pharyngit is, Results for this THROAT SWAB CIGARETTE TESTER unspecified etiology procedu re are in the results section. documented in this encounter Results Beta strep group A culture (12/27/2017 12:07 PM CIGARETTE TESTER) Component Value Ref Test Analysis Performed At [facility] Method Time Signature Specimen Throat [place] Description [facility] Culture Micro No beta 12/28/2017 [place] hemolytic 12:17 PM [facility] Streptococcus CIGARETTE TESTER CUT BANK Group A isolated Specimen Anatomical Collection Method Collection Time Receive d Time (Source) Location / / Volume Laterality Specimen from 12/27/2017 12:07 12/27/2017 throat PM CIGARETTE TESTER 12:12 PM CIGARETTE TESTER (specimen) Angelia Castañeda APRN, CNP LAB - MICRO GENERAL ZAID [place] Performing Organization Address City/State/ZIP Code Phon e Number [facility] [address] [place] [address] Strep, Rapid Screen (12/27/2017 11:54 AM CIGARETTE TESTER) Component Value Ref Test Analysis Performed At [facility] gist Range Method Time Signature Specimen Throat [place] Description [facility] Rapid Strep A NEGATIVE: No 12/27/2017 [place] Screen Group A 12:09 PM [facility] streptococcal [facility] antigen detected by immunoassay, await culture report. Specimen Anatomical Collection Method Collection Time Receive d Time (Source) Location / / Volume Laterality Specimen from 12/27/2017 11:54 12/27/2017 throat AM CIGARETTE TESTER 11:59 AM CIGARETTE TESTER (specimen) Angelia Castañeda APRN MICROBIOLOGY LAB TECHNICIAN LAB - MICRO GENERAL ZAID [place]Z Performing Organization Address City/State/ZIP Code Phon e Number [facility] [place], [place] [id number] documented in this encounter Visit Diagnoses Diagnosis Viral URI with cough - Primary Acute upper respiratory infections of un specified site Acute pharyngitis, unspecified etiology documented in this encounter Additional Health Concerns Assessment Noted Time PHQ-9 Depression Total Score: 3 11/02/2017 7:23 AM CDT documented as of this encounter Care Teams Dishwasher Preparer Relationship Specialty Start Date End Date Kleber Ledesma, PCP - General Physician Head School Custodian - 05/15/14 PA-C Medical Kleber Ledesma, PCP - Assigned PCP 09/19/17 04/12/18 PA-C [id number] [address] [place] [id number] Kleber Ledesma, Assigned PCP 09/19/17 PA-C [id number] [address] [place] [id number] documented as of this encounter
--- OUTSIDE RECORDS SUMMARY | 2022-01-05 11:35 | XMS_ITS | Encounter Summary ---
:1960 Author Organization [place] Address [address] [place] [address]. 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, sequela (H) [address] [place], [place] PSYCHOLOGY [address] [place] [address] [place] [address] Social History Tobacco Use Types [...] Dispensed Refills Start Date End Date albuterol (PROAIR Inhale 2 puffs into 1 Inhaler 0 8 06/01/2018 HFA/PROVENTIL the lungs every 6 HFA/VENTOLIN HFA) 108 (90 hours as needed for Base) MCG/ACT shortness of breath inhalerIndications: Viral / dyspnea or URI with cough wheezing (cough) aspirin 81 MG tablet Take 81 mg by mouth 0 09/22/2019 daily atenolol-chlorthalidone TAKE ONE TABLET BY 90 tablet 3 09/201706/17/2018 (TENORETIC) 50-25 MG per MOUTH EVERY DAY tabletIndications: Essential hypertension with goal blood pressure less than 140/90 benzonatate (TESSALON) Take 1 capsule (100 30 capsule 0 12/0906/01/2018 100 MG mg) by mouth 3 capsuleIndications: Viral times daily as URI with cough needed for cough CALCIUM CARBONATE PO Take 2,400 mg by 0 09/22/2019 mouth daily Cholecalciferol (VITAMIN Take 2,000 Units by 0 09/22/2019 D3 PO) mouth daily citalopram (CELEXA) 10 MG Take [...] tablet (7.5 90 tablet 3 06/01/2018 tabletIndications: mg) by mouth daily Primary osteoarthritis of right knee Multiple Take 1 tablet by 0 09/22/19 20 Vitamins-Minerals mouth daily (OCUVITE PO) [place]-3 Fatty Acids Take 2.4 g by mouth 0 09/22/2019 (OMEGA-3 FISH OIL PO) daily oxybutynin (DITROPAN XL) Take 1 tablet (5 30 tablet 1 10/0406/01/2018 5 MG 24 hr mg) by mouth daily tabletIndications: Mixed incontinence simvastatin (ZOCOR) 20 MG TAKE ONE TABLET BY 90 tablet 2 02/02/2018 tabletIndications: Mixed MOUTH AT BEDTIME hyperlipidemia VENTOLIN HFA 108 (90 INHALE TWO PUFFS BY 0 201709/22/2019 Base) MCG/ACT inhaler MOUTH EVERY 6 HOURS NEEDED FOR SHORTNESS OF BREATH OR WHEEZING (COUGH) vitamin E (VITAMIN E) 200 Take 400 Units by 0 09/22/2019 UNIT capsule mouth daily documented as of this encounter Progress Notes Cinthia Kat - 01/07/2018 2:46 PM CST NEUROPSYCHOLOGY PROGRESS NOTE NAME: Amie Scott DATE OF : 1960 DATE OF EVALUATION: 01/07/2018 SUMMARY OF SESSION: Ms. Scott is a 57-year-old, right-handed, female with a history of repeated mild traumatic brain injuries who presented on 12/20/17 with complaints of memory, irritability, and decision making difficulties since her most recent concussion in August 2017. Ms. Scott was refe rred for a neuropsychological evaluation by Leif Chin???RACH[facility]. She was accompanied to today???s meeting by a QRC, Fabiano, but was seen for 25 minutes of feedback individually before we invited her QRC to join us for the end of the session. We began the session by discussing her experience during the neuropsychometric evaluation.I provided Ms. Scott with detailed feedback regarding her performance on cognitive testing and her pattern of cognitive strengths and weaknesses. I discussed my overall impressions and recommendationsand provided the opportunity for Ms. Scott to ask any questions that she had about the evaluation. We reviewed my recommendations in detail, particularly those related to managing her stress and anxiety. At the end of the session, she and her QRC indicated that they understood the results and that I had answered all of their questions. She was provided with my contact information, should any further questions or concerns arise in the future. Please contact me with any questions regarding the content of this note. Cinthia Kat, PhD, LP, ABPP Board Certified [place] [address] For diagnostic and coding purposes, Amie Scott has a history of mild TBI and adjustment disorder with anxiety and was seen for a total of 45 minutes by the neuropsychologist. 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
--- OUTSIDE RECORDS SUMMARY | 2022-01-05 11:35 | XMS_ITS | Encounter Summary ---
:1960 Author Organization [place] Address [address] [place] [address] Care Team Providers Name Role Phone Kleber Ledesma PA-C Primary Care Provider [phone] Kleber Ledesma PA-C Unavailable [phone] Kleber Ledesma PA-C Unavailable [phone] Sasha Tai RN Unavailable Unavailable Junie Rm PA-C Unavailable Patricia Brown RN Unavailable Kleber Ledesma PA-C Unavailable [phone] Encounter Details Date Type Department Care Team Description 10/29/2017 Ambulatory - [facility] OUTPATIENT Leif Alberto PA-C Concussion [facility] SERVICES Provider, Historical [address] [place] [address] Social History Tobacco Use Types Packs/Day Years [...] of this encounter Visit Diagnoses Diagnosis Concussion Concussion, unspecified documented in this encounter Additional Health Concerns Infection Onset Date Last Indicated Resolved Time Rule Out COVID-19 01/08/2020 01/08/2020 01/09/2020 1:3 2 AM DURALUMIN METALWORKER COVID-19 01/08/2020 01/08/2020 01/29/2020 11:40 PM DURALUMIN METALWORKER Assessment Noted Time PHQ-9 Depression Total Score: 11 10/01/2017 7:03 AM CD T documented as of this encounter Care Teams Alcohol And Drug Counselor Relationship Specialty Start Date End Date Kleber Ledesma PCP - General Physician Color Shop Helper - 05/15/14 RACHNA Valderrama Medical Kleber Ledesma PCP - Assigned PCP 09/19/17 9 RACHNA Valderrama [address] [address] [place] [id number] Kleber Ledesma Assigned PCP 09/19/17 06/01/20 RACHNA Valderrama [address] [address] [place] [phone] Sasha Tai, RN Personal Advocate & Family Practice 11/02/19 02/14/20 Liaison (PAL) Junie Rm, Assigned PCP 06/02/20 06/08/20 RACHNA [address] [address] [place] [id number] Patricia Brown, RN Clinic Cardiograph Operator 06/03/20 06/03/20 Kleber Ledesma Assigned PCP 06/09/20 RACHNA [place]derr[place] [address] [place] [address] documented as of this encounter
--- OUTSIDE RECORDS SUMMARY | 2022-01-05 11:35 | XMS_ITS | Encounter Summary ---
:1960 Author Organization [place] Address [address] [place] [address] Care Team Providers Name Role Phone Kleber Ldeesma PA-C Primary Care Provider [phone] Kleber Ledesma PA-C Unavailable [phone] Kleber Ledesma PA-C Unavailable [phone] Reason for Visit Reason Comments Referrals/continued Care/healthcare referral sent to Shayy Alfonso Forms Clinic notes and orders sent to [facility] #[phone] Encounter Details Date Type Department Care Team Description 10/28/2017 Care Coordination [facility], Referrals/continued [address] [facility] [address] Ashley LPN Care/healthcare 4th Floor (referral sent to [place], [place] Angie pardo); [id number] Forms (Clinic notes [phone] and orders sent to [facility] #[phone]) Social History Tobacco Use Types Packs/Day Years [...] documented as of this encounter Care Teams Ergonomics Consultant Relationship Specialty Start Date End Date Kleber Ledesma, PCP - General Physician Information Systems Analyst - 05/15/14 PA-C Medical Kleber Ledesma, PCP - Assigned PCP 09/19/17 04/12/18 CINTHYAC [address] [address] [id number] Kleber Ledesma, Assigned PCP 09/19/17 RACHNA [address] [address] [address] documented as of this encounter
--- OUTSIDE RECORDS SUMMARY | 2022-01-05 11:35 | XMS_ITS | Encounter Summary ---
:1960 Author Organization [place] Address [address] [place] [address]. [place] [address] Care Team Providers Name Role Phone Kleber Ledesma PA-C Primary Care Provider [phone] Kleber Ledesma PA-C Unavailable [phone] Kleber Ledesma PA-C Unavailable [phone] Sasha Tai RN Unavailable Unavailable Junie Rm PA-C Unavailable Patricia Brown RN Unavailable Kleber Ledesma PA-C Unavailable [phone] Encounter Details Date Type Department Care Team Description [facility]/2017 [facility] [address] PS[facility]CHOLOGY [address] [place] [address] N [phone] [place], [place] 821[address] Social History Tobacco Use Types Packs/Day Years [...] this encounter Progress Notes Cinthia Kat - 11/22/2017 12:00 PM CDT DOCUMENTATION ONLY: PATIENT FAIL/NO SHOW TO APPOINTMENT Amie Scott was referred by Leif Alberto PA-C ([facility]) for a brief neurocognitive evaluation following a recent concussion injury. Ms. Scott no-showed today's appointment at the [facility]. Our schedulers will reach out to reschedule her at her earliest convenience; however, she will not be rescheduled again if she no-shows her second appointment. Cinthia Kat, PhD, LP, ABPP Clinical Neuropsychologist, LP#[id number] Board Certified in Clinical Neuropsychology [facility] Neuropsychology Section [phone] documented in this encounter Plan of Treatment Not on filedocumented as of this encounter Visit Diagnoses Not on filedocumented in this encounter Additional Health Concerns Infection Onset Date Last Indicated Resolved Time Rule Out COVID-19 01/08/2020 01/08/2020 01/09/2020 1:3 2 AM BEEF RIBBER COVID-19 01/08/2020 01/08/2020 01/29/2020 11:40 PM BEEF RIBBER Assessment Noted Time PHQ-9 Depression Total Score: 3 11/02/2017 7:23 AM CDT documented as of this encounter Care Teams Back Sizer Relationship Specialty Start Date End Date Kleber Ledesma PCP - General Physician Safety Coordinator - 05/15/14 RACHNA Valderrama Medical Kleber Ledesma PCP - Assigned PCP 09/19/17 9 RACHNA Valderrama [address] [address] [address] Kleber Ledesma Assigned PCP 09/19/17 06/01/20 RACHNA Valderrama [address] [address] [address] Sasha Tai, RN Personal Advocate & Family Practice 11/02/19 02/14/20 Liaison (PAL) Junie Rm, Assigned PCP 06/02/20 06/08/20 RACHNA [address] [place] [address] Patricia Brown RN Clinic Blade Operator 06/03/20 06/03/20 Kleber Ledesma Assigned PCP 06/09/20 RACHNA Valderrama [address] [place] [address] documented as of this encounter
--- OUTSIDE RECORDS SUMMARY | 2022-01-05 11:36 | XMS_ITS | Encounter Summary ---
:1960 Author Organization [place] Address [address] [place] [address]. [place] [address] Care Team Providers Name Role Phone Kleber Ledesma PA-C Primary Care Provider [phone] Encounter Details Date Type Department Care Team Description 08/25/2016 Radiant Appointment [facility] Kleber Ledesma Acute right ankle Clinic [place] RACHNA Valderrama pain [address] [address] [address] [facility], [address] [place] [address] [id number] Social History Tobacco Use Types Packs/Day Years Used Date Smoking Tobacco: Former Smokeless Tobacco: Never Comments: quit smoking at 21 yrs old. sm oked 2 to 21/2 ppd Alcohol Use Standard Drinks/Week Comments Yes 2 (1 standard drink = 0.6 oz pure alcoho l) Sex Assigned at Date Recorded Not on file documented as of this encounter Plan of Treatment Not on filedocumented as of this encounter Procedures Procedure Name Priority Date/Time Associated Diagnosis Comme nts XR ANKLE RIGHT G/E Routine 08/25/2016 9:20 AM Acute right ankl e Results for this 3 VIEWS CDT pain procedure are i n the results section. documented in this encounter Results XR Ankle Right G/E 3 Views (08/25/2016 9:20 AM CDT) Anatomical Region Laterality Modality Left Ankle Right Computed Radiography Specimen (Source) Anatomical Location Collection Method / Collectio n Time Received Time / Laterality Volume Impressions 08/25/2016 12:25 PM CDT IMPRESSION: ??Negative. PHIL BELTRAN MD Narrative 08/25/2016 12:25 PM CDT XR ANKLE RT G/E 3 VW ??08/25/2016 9:20 AM HISTORY: ??Pain in right ankle and joint s of right foot COMPARISON: ??None. Procedure Note Phil Beltran MD - 7 XR ANKLE RT G/E 3 VW 08/25/2016 9:20 AM HISTORY: Pain in right ankle and joints of right foot COMPARISON: None. IMPRESSION: Negative. PHIL BELTRAN MD Kleber Ledesma PA-C IMG DIAGNOSTIC IMAGING ORDER PB documented in this encounter Visit Diagnoses Diagnosis Acute right ankle pain documented in this encounter Care Teams Boarding House Cook Relationship Specialty Start Date End Date Kleber Ledesma, PCP - General Physician Program Facilitator - 05/15/14 RACHNA Medical documented as of this encounter
--- OUTSIDE RECORDS SUMMARY | 2022-01-05 11:36 | XMS_ITS | Encounter Summary ---
:1960 Author Organization [facility] Address [address] [place] [address]. [place] [address] Care Team Providers Name Role Phone Kleber Ledesma PA-C Primary Care Provider [phone] Reason for Visit Reason Comments URI Encounter Details Date Type Department Care Team Description 01/21/2017 Office Visit [facility] Yesi Álvarez Throat pain (Primary Dx); Clinic Thomas Kaba MD Upper respiratory tract infection, unspe cified type; [place] [address] [facility] Encounter for screening mammogram for [facility], [address] [place] [address] [place], [place] [phone] (Wo rk) [address] [phone] Social History Tobacco Use Types Packs/Day Years [...] Sign Reading Time Taken Comments Blood Pressure 120/76 01/21/2017 11:34 AM GAS DISPENSER Pulse 70 01/21/2017 11:34 AM GAS DISPENSER Temperature 36.7 ??C (98 ??F) 01/21/2017 11:34 AM GAS DISPENSER Respiratory Rate 16 01/21/2017 11:34 AM GAS DISPENSER Oxygen Saturation 100% 01/21/2017 11:34 AM GAS DISPENSER Inhaled Oxygen Concentration - - Weight 67.9 kg (149 lb 9.6 oz) 01/21/2017 11:34 AM GAS DISPENSER Height - - Body Mass Index 27.36 03/17/2016 3:37 PM GAS DISPENSER documented in this encounter Progress Notes Yesi Álvarez MD - 01/21/2017 11:20 AM CST HPI SUBJECTIVE: Amie Scott is a 56 year old female who presents to clinic today for the following health issues: Acute Illness Acute illness concerns: fever, headache, sinus pressure, cough and poor appetite Onset: 01/17/17 ?? Fever: YES ?? Chills/Sweats: YES ?? Headache (location?): YES ?? Sinus Pressure:YES ?? Conjunctivitis: No, but itchy sometimes ?? Ear Pain: no ?? Rhinorrhea: YES ?? Congestion: no ?? Sore Throat: YES- a little one ?? Cough: [id number] ?? Wheeze: no ?? Decreased Appetite: YES ?? Nausea: YES ?? Vomiting: no ?? Diarrhea: no ?? Dysuria/Freq.: no ?? Light-headed Feeling: YES ?? Fatigue/Achiness: YES ?? Sick/Strep Exposure: no Therapies Tried and outcome: ADVIL, TYLENOL and cough medicine-Has helped a little bit. Patient has been sick since Wednesday. She went to work on Wednesday, but did not make it long so she left. She checked her temp that day which was 99.8 degrees. She works at the [employer] at [employer]. Shehas been home since Wednesday and states that she needs to go back to work soon. Patient has had a flu shot this year. She reports that she does not believe symptoms are improving. She complains of a cough, headache, body aches, slight fever and chills, and slight ear pressure but no ear pain. She had a slight sore throat yesterday. The past couple of days she felt congested and has post nasal drip and rhinitis with constant clear mucus. She does not have allergies but has been sneezing a lot since Juneto the point where her eyes will water. She reports being diagnosed with cold induced asthma, but does not believe that is what is has right now. She does not smoke cigarettes. Patient also reports experiencing a bad taste after eating and reports that things do not taste right. She has had sinus infections in the past and reports having strep in the past and did not even know she had when diagnosed.She requested a rapid strep test and a doctors note to return to work on 01/26/2017. Patient has had people sick at work but is unaware what they had. She traveled to [place] about 2weeks ago. Problem list and histories reviewed & adjusted, as indicated. Additional history: as documented BP Readings from Last 3 Encounters: 01/21/17 120/76 08/25/16 92/64 06/08/16 136/78 Wt Readings from Last 3 Encounters: 01/21/17 67.9 kg (149 lb 9.6 oz) 08/25/16 66.7 kg (147 lb) 06/08/16 66.7 kg (147 lb) Labs reviewed in [facility] Reviewed and updated as needed this visit by clinical staffTobacco Allergies Meds Problems Med Hx Surg Hx Fam Hx Soc Hx Reviewed and updated as needed this visit by Provider ROS: Constitutional, HEENT, cardiovascular, pulmonary, gi and gu systems are negative, except as otherwise noted. Constitutional: POSITIVE for fever, chills, and fatigue HEENT: POSITIVE for sinus nasal congestion and rhinitis RESP: POSITIVE for cough This document serves as a record of the services and decisions personally performed and made by Yesi Álvarez MD. It was created on her behalf by Marta Goldstein, a trained medical staff physician. The creation of this document is based on the provider's statements to the medical staff physician. Marta Goldstein January 21, 2017 11:45 AM OBJECTIVE: BP 120/76 (BP Location: Right arm, Patient Position: Chair, Cuff Size: Adult Regular) Pulse 70 Temp 98 ??F (36.7 ??C) (Oral) Resp 16 Wt 67.9 kg (149 lb 9.6 oz) LMP 02/22/2010 SpO2 100% BMI 27.36 kg/m2 Body mass index is 27.36 kg/(m^2). GENERAL: healthy, alert and no distress EYES: Eyes grossly normal to inspection, PERRL and conjunctivae and sclerae normal HENT: ear canals and TM's normal, nose and mouth without ulcers or lesions. Nasal congestion and enlarged tonsils noted. NECK: no adenopathy, no asymmetry, masses, or scars and thyroid normal to palpation. Tenderness under the jaw line RESP: lungs clear to auscultation - no [...] appears normal, affect normal/bright Diagnostic Test Results: Strep screen - Negative ASSESSMENT/PLAN: (R07.0) Throat pain (primary encounter diagnosis) Comment: negative today Plan: Strep, Rapid Screen (J06.9) Upper respiratory tract infection, unspecified type Comment: Helped patient set up a MyChart. Recommend drinking a lot of fluids, using saline sinus sprays, rest, and starting doxycycline due to hx of asthma and can fill this if she is not improving over the weekend, normal exam today Plan: doxycycline (VIBRAMYCIN) 100 MG capsule (Z12.31) Encounter for screening mammogram for breast cancer Comment: Mammogram ordered today Plan: *MA Screening Digital Bilateral The information in this document, created by the medical staff physician for me, accurately reflects the services I personally performed and the decisions made by me. I have reviewed and approved this document for accuracy prior to leaving the patient care area. January 21, 2017 11:45 AM Yesi Álvarez MD [facility] Physical Exam DISPENSER documented in this encounter Nursing Notes Maricarmen Eller, MORTGAGE LOAN COUNSELOR - 01/21/2017 11:20 AM CST Chief Complaint Patient presents with ??? URI Initial BP 120/76 (BP Location: Right arm, Patient Position: Chair, Cuff Size: Adult Regular) Pulse 70 Temp 98 ??F (36.7 ??C) (Oral) Resp 16 Wt 149 lb 9.6 oz (67.9 kg) LMP 02/22/2010 SpO2 100% BMI 27.36 kg/m2 Estimated body mass index is 27.36 kg/(m^2) as calculated from the following: Height as of 03/17/16: 5' 2 (1.575 m). Weight as of this encounter: 149 lb 9.6 oz (67.9 kg). BP completed using cuff size regular right arm. Maricarmen Eller CMA DISPENSER documented in this encounter Plan of Treatment Not on filedocumented as of this encounter Procedures Procedure Name Priority Date/Time Associated Diagnosis Comme nts RAPID STREP SCREEN Routine 01/21/2017 11:59 AM Throat pain Re sults for this THROAT SWAB GAS DISPENSER procedure are i n the results section. BETA HEMOLYTIC Routine 01/21/2017 11:59 AM Throat pain Result s for this STREP GROUP A GAS DISPENSER procedure are in CULTURE the results section. documented in this encounter Results *MA Screening Digital Bilateral (01/27/2017 4:00 PM GAS DISPENSER) Anatomical Region Laterality Modality Breast Bilateral Mammography Specimen (Source) Anatomical Location Collection Method / Collectio n Time Received Time / Laterality Volume Impressions 01/27/2017 4:18 PM GAS DISPENSER IMPRESSION: BI-RADS CATEGORY: 1 - ??NEGATIVE. RECOMMENDED FOLLOW-UP: Annual Mammograph y. The patient will be notified of the resu lts. ISAIAH CEVALLOS MD Narrative 01/27/2017 4:18 PM GAS DISPENSER Examination: Bilateral digital screening mammography with computer aided detection, 01/27/2017 4:00 PM. Comparison: 09/10/2014, 12/07/2011, 008 History: No current breast concerns. Sis ter with breast cancer. BREAST DENSITY: Scattered fibroglandular densities. COMMENTS: ??No suspicious finding. Procedure Note Isaiah Cevallos MD - 01/27/2017 Examination: Bilateral digital screening mammography with computer aided detection, 01/27/2017 4:00 PM. Comparison: 09/10/2014, 12/07/2011, 008 History: No current breast concerns. Sis ter with breast cancer. BREAST DENSITY: Scattered fibroglandular densities. COMMENTS: No suspicious finding. IMPRESSION: BI-RADS CATEGORY: 1 - NEGATI VE. RECOMMENDED FOLLOW-UP: Annual Mammograph y. The patient will be notified of the resu lts. ISAIAH CEVALLOS MD Yesi Álvarez MD IMG MAMMOGRAPHY ORDERABLES Beta strep group A culture (01/21/2017 11:59 AM GAS DISPENSER) Component Value Ref Test Analysis Performed At [facility] gist Range Method Time Signature Specimen Throat [facility] Culture Micro No beta 01/22/2017 [facility] hemolytic 4:12 PM GAS DISPENSER [facility] Streptococcus CLIFF Group A isolated Specimen Anatomical Collection Method Collection Time Receive d Time (Source) Location / / Volume Laterality Specimen from 01/21/2017 11:59 01/21/2017 throat AM GAS DISPENSER 12:00 PM GAS DISPENSER (specimen) Yesi Álvarez MD LAB - MICRO GENERAL ORDERABL ES Performing Organization Address City/[facility]/ZIP [facility] Phon e Number [address] [address] Strep, Rapid Screen (01/21/2017 11:59 AM GAS DISPENSER) Component Value Ref Test Analysis Performed At [facility] Range Method Time Signature Specimen Throat [facility] Rapid Strep A NEGATIVE: No 01/21/2017 [place] Screen Group A 12:10 PM CLINICS streptococcal [facility] antigen detected by immunoassay, await culture report. Specimen Anatomical Collection Method Collection Time Receive d Time (Source) Location / / Volume Laterality Specimen from 01/21/2017 11:59 01/21/2017 throat AM GAS DISPENSER 12:00 PM GAS DISPENSER (specimen) Yesi Álvarez MD LAB - MICRO GENERAL ORDERABL ES Performing Organization Address City/[facility] Phon e Number [address] [address] documented in this encounter Visit Diagnoses Diagnosis Throat pain - Primary Upper respiratory tract infection, unspe cified type Encounter for screening mammogram for br east cancer Encounter for screening mammogram for br east cancer documented in this encounter Care Teams Rn Complex Care Relationship Specialty Start Date End Date Kleber Ledesma, PCP - General Physician Roofing Apprentice - 05/15/14 PA-C Medical documented as of this encounter
--- OUTSIDE RECORDS SUMMARY | 2022-01-05 11:36 | XMS_ITS | Encounter Summary ---
:1960 Author Organization [facility] Address [address] [place] [address]. [place] [address] Care Team Providers Name Role Phone Kleber Ledesma PA-C Primary Care Provider [phone] Reason for Visit Reason Comments Work Comp RECHECK concussion Encounter Details Date Type Department Care Team Description 06/08/2016 Office Visit [facility] Kleber Ledesma justo without Clinic [place] [address] [place] [address] [facility], [address] [place] [address] subsequent encounter [place], [place] [phone] (Wo rk) (Primary Dx) [address] [phone] Social History Tobacco Use Types Packs/Day Years [...] Sign Reading Time Taken Comments Blood Pressure 136/78 06/08/2016 11:09 AM CDT Pulse 70 06/08/2016 11:09 AM CDT Temperature 36.7 ??C (98.1 ??F) 06/08/2016 11:09 AM CDT Respiratory Rate 18 06/08/2016 11:09 AM CDT Oxygen Saturation 97% 06/08/2016 11:09 AM CDT Inhaled Oxygen Concentration - - Weight 66.7 kg (147 lb) 06/08/2016 11:09 AM CDT Height - - Body Mass Index 26.89 03/17/2016 3:37 PM ENGINE INSTALLER documented in this encounter Progress Notes Kleber Ledesma PA-C - 06/08/2016 11:00 AM CDT SUBJECTIVE: Amie Scott is a 56 year old female who presents to clinic today for the following health issues: Work comp/recheck/closed head injury - patient stated she is doing better, but not quite right, has been taking naps everyday, feels foggy, dazed still. Had some nausea on Wednesday. Is having some memoryissues. Went back Wednesday for half days for 3 days over the weekend. Was not ready for the first day back, itwas very hard on her. The other two were OK. 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 She is sleeping a lot which is not normal for her. She still has pressure in her head, not really a headache. Advil helps this when she takes it. Still tired, exhausted. Foggy. Feeling better overall though from initial injury. Has had a couple memory issues that are concerning to her. Some nausea but this also is getting better. Problem list and histories reviewed & adjusted, as indicated. Additional history: as documented Reviewed and updated as needed this visit by clinical staff Tobacco Allergies Meds Problems Med Hx Surg Hx Fam Hx Soc Hx Reviewed and updated as needed this visit by Provider ROS: Constitutional, HEENT, cardiovascular, pulmonary, gi and gu systems are negative, except as otherwise noted. OBJECTIVE: BP 136/78 (BP Location: Right arm, Patient Position: Chair, Cuff Size: Adult Regular) Pulse 70 Temp 98.1 ??F (36.7 ??C) (Oral) Resp 18 Wt 147 lb (66.7 kg) LMP 02/22/2010 SpO2 97% BMI 26.89 kg/m2 Body mass index is 26.89 kg/(m^2). GENERAL: healthy, alert and no distress MS: no gross musculoskeletal defects noted, no edema SKIN: no suspicious lesions or rashes NEURO: Normal strength and tone, mentation intact and speech normal PSYCH: mentation appears normal, affect flat Diagnostic Test Results: none ASSESSMENT/PLAN: 1. 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 Note written for this. If she is feeling not ready for next week she will follow up. If symptoms are not continuing to fully recover will consider Neurology referral. Follow up sooner if any worsening of symptoms is noted. Kleber Ledesma PA-C [facility] documented in this encounter Nursing Notes Gabrielle Garcia MA - 06/08/2016 11:00 AM CDT Chief Complaint Patient presents with ??? Work Comp ??? RECHECK concussion Initial BP 136/78 (BP Location: Right arm, Patient Position: Chair, Cuff Size: Adult Regular) Pulse 70 Temp 98.1 ??F (36.7 ??C) (Oral) Resp 18 Wt 147 lb (66.7 kg) LMP 02/22/2010 SpO2 97% BMI 26.89 kg/m2 Estimated body mass index is 26.89 kg/(m^2) as calculated from the following: Height as of 17: 5' 2 (1.575 m). Weight as of this encounter: 147 lb (66.7 kg). Medication Reconciliation: complete Gabrielle Garcia MA documented in this encounter Plan of Treatment Not on filedocumented as of this encounter Visit Diagnoses Diagnosis Concussion without loss of consciousness , subsequent encounter - Primary documented in this encounter Care Teams Legislative Aide Relationship Specialty Start Date End Date Kleber Ledesma, PCP - General Physician Cabinet Builder - 05/15/14 [facility] Medical documented as of this encounter
--- OUTSIDE RECORDS SUMMARY | 2022-01-05 11:36 | XMS_ITS | Encounter Summary ---
:1960 Author Organization [facility] Address [address] [place] [address]. [place] [address] Care Team Providers Name Role Phone Kleber Ledesma PA-C Primary Care Provider [phone] Kleber Ledesma PA-C Unavailable [phone] Kleber Ledesma PA-C Unavailable [phone] Reason for Referral Consultation - Closed Specialty Diagnoses / Procedures Referred By Contact Refer red To Contact Diagnoses Concussion without loss of consciousness, initial encounter Kleber Ledesma [facility] [address] [place] [address] [place] [address] Phone: Fax: Referral ID Status Reason Start Date Expiration Date Visits Requ ested Visits Authorized [id number] Closed 09/06/2017 09/06/2018 1 1 Reason for Visit Reason Onset Date Comments Call Back 09/06/2017 Concussion at work Encounter Details Date Type Department Care Team Description 09/06/2017 Telephone [facility] [place] [facility] Kleber Ledesma Call B ack (Concussion Clinic [facility] luis Valderrama PA-C at work ) [address] [facility], [address] [place] [address] [place], [place] [phone] (Wo rk) [address] [phone] Social History Tobacco Use Types Packs/Day Years Used Date Smoking Tobacco: Former Smokeless Tobacco: Never Comments: quit smoking at 21 yrs old. sm oked 2 to 212 ppd Alcohol Use Standard Drinks/Week Comments Yes 2 (1 standard drink = 0.6 oz pure alcoho l) socially Sex Assigned at Date Recorded Not on file documented as of this encounter Miscellaneous Notes Telephone Encounter - Liz Wooten CMA - 09/21/2017 1:26 PM CDT Patient notified. Will leave letter at front office assistant to be picked up. Liz Wooten CMA ([facility])' Telephone Encounter - Liz Wooten CMA - 09/21/2017 1:26 PM CDT ----- Message from Angelia Castañeda APRN CNP sent at 09/21/2017 12:34 PM CDT ----- Regarding: FW: Pt concussion apt Discussed with Kleber as well. Will extend her work note until 10/04 when she sees Kleber. She will have been seen in the concussion clinic by that time. Please call patient and ask where she would likenew work note faxed or if she would like to come in and sweet pickle maker. Work note is in my box. Thanks, Angelia Castañeda CNP ----- Message ----- From: Fabiano Osborne Sent: 09/20/2017 2:23 PM To: Angelia Castañeda APRN CNP Subject: Pt concussion apt Amie Biswas called me today to get into the concussion clinic with Leif Alberto. Currently he is booked out until next 09/30. I got Amie an apt. On that day. Could you please let me and Amie know if you can push back your apt. Till after she see's Leif so she does not have to go to a different clinic to be seen sooner. Thank you Fabiano NIEVES [facility]'s Concussion pin machine tender Telephone Encounter - Dali Mesa CMA - 09/06/2017 4:59 PM CDT Letter has been faxed to [phone]. It has been placed into the faxed copy folder. Dali.CHELSEY Mesa ([facility]) Telephone Encounter - Kleber Ledesma PA-C - 09/06/2017 4:54 PM CDT Thank you for helping me with this. Letter sent, copy at TC's desk. ajp Telephone Encounter - Mariam Alegria RN - 09/06/2017 3:36 PM CDT Spoke with the Pt. Cancelled appointment for tomorrow. Relayed referral information. She will call and schedule. PCP: Peg pended a letter. She is scheduled to work Wednesday-Wednesday of this week. Peg pended the letter with a return to work date of 09/14/17. Please review. She would like this letter faxed to her employer [employer] at fax# [phone] ATTN: Riana Coleman. Shewould also like to sweet pickle maker copy of the letter at the front office assistant tomorrow. Please have TC assist withfaxing and placing letter at front. Thank you. Mariam Alegria RN -- [facility] Telephone Encounter - Kleber Ledesma PA-C - 09/06/2017 3:11 PM CDT I do not think I need to see her. Let's extend her note and then get her in to see neurology. This is her second time having this happen to her. Not sure if there is specific concussion management program or if we just need neuro. If she is having new or worsening symptoms she should go to the ED. I could send in zofan if needed also. Kleber Pereyra Telephone Encounter - Mariam Alegria RN - 09/06/2017 2:47 PM CDT PCP FYI: I spoke with the Pt. She continues to experience what she describes as mental fogginess and some issues with short term memory. The Pt reports she is misplacing things like her cell phone where previously she had no issues. She continues to have ongoing pressure headaches - mild to moderate in intensity. Describes the GODDARD's as somewhat improved since they initially began immediately post injury, however still present. She is having trouble driving, feels really stressed out and having a hard time concentrating as well. She also reports ongoing nausea, especially after eating. Feels mentally foggy. 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 I scheduled the Pt to see you tomorrow morning for follow up care. Advised her to discuss return to work at that time. Advised her on warning signs to watch out for like pupil changes, excessive tiredness, vomiting, or confusion. Mariam Alegria RN -- [facility] Telephone Encounter - Cherrie Mcknight - 09/06/2017 2:16 PM CDT Pt called to inform she left her phone at home. Please call her daughters phone until 3:30 today. [phone] Pt needs answer today to inform her employer. Kishan Mcknight Court Manager 09/06/17 2:17 PM Telephone Encounter - Beth Reid - 09/06/2017 1:01 PM CDT Patient had to leave for a appointment, please call her on her cell phone # [phone]. Beth Reid Court Manager Telephone Encounter - Sara Peck - 09/06/2017 11:40 AM CDT Reason for Call: Other call back Detailed comments: Patient would like to speak with nurse about her appointment with [facility], and her concussion and returning to work. She is still having headaches, should she be concerned. Phone Number Patient can be reached at: Cell number on file: Telephone Information: Best Time: Any Can we leave a detailed message on this number? YES Call taken on 09/06/2017 at 11:40 AM by Sara Peck documented in this encounter Plan of Treatment Scheduled Referrals Name Type Priority Associated Diagnoses Order [facility] NEUROLOGY ADULT Referral Routine Concussion without loss O rdered: 09/06/2017 REFERRAL of consciousness, initial encounter documented as of this encounter Visit Diagnoses Diagnosis Concussion without loss of consciousness , initial encounter - Primary documented in this encounter Care Teams Crisis Nurse Relationship Specialty Start Date End Date Kleber Ledesma, PCP - General Physician Registered Account Administrator - 05/15/14 PA-C Medical Kleber Ledesma, PCP - Assigned PCP 09/19/17 04/12/18 PA-C [id number] [address] Kleber Ledesma, Assigned PCP 09/19/17 PA-C [address] [id number] documented as of this encounter
--- OUTSIDE RECORDS SUMMARY | 2022-01-05 11:36 | XMS_ITS | Encounter Summary ---
:1960 Author Organization [facility] Address [address] [place] [address]. [place] [address] Care Team Providers Name Role Phone Kleber Ng PA-C Primary Care Provider [phone] Kleber Ng PA-C Unavailable [phone] Kleber Ng PA-C Unavailable [phone] Reason for Visit Reason Comments Physical w/pap Blood Draw LABS: patient is fasting? Encounter Details Date Type Department Care Team Description 10/04/2017 Office Visit [facility] Kleber Ng for routine adult medical exam with abnormal findings (Primary Dx); Clinic [place] RACHNA Valderrama Screening for cervical cancer; [place] [address] [facility] Screening for human papillomavirus; [address], [address] [place], [place] Vaginal discharge; [place] [address] Hypertension goal BP (blood pressure) < 140/90; [id number] Pure hypercholesterolemia; Mixed incontinence; Visit for screening mammogram Social History Tobacco Use Types Packs/Day Years [...] Reading Time Taken Comments Blood Pressure 120/70 10/04/2017 11:11 AM CDT Pulse 52 10/04/2017 11:11 AM CDT Temperature 36.9 ??C (98.4 ??F) 10/04/2017 11:11 AM CDT Respiratory Rate 12 10/04/2017 11:11 AM CDT Oxygen Saturation - - Inhaled Oxygen Concentration - - Weight 69.9 kg (154 lb 3.2 oz) 10/04/2017 11:11 AM CDT Height - - Body Mass Index 28.2 09/30/2017 7:54 AM CDT documented in this encounter Patient Instructions Patient InstructionsGabrielle Garcia MA - 10/04/2017 11:03 AM CDT Preventive Health Recommendations Female Ages 50 [...] eye doctor every 1 to 2 years. Janice Saenz documented in this encounter Progress Notes Kleber Ng PA-C - 10/04/2017 11:00 AM CDT SUBJECTIVE: CC: Micah Scott is an 57 year old woman who presents for preventive health visit. Physical Annual: Getting at least 3 servings of Calcium per day: NO Bi-annual eye exam: NO Dental care twice a year: Yes Sleep apnea or symptoms of sleep apnea: Daytime drowsiness Diet: Regular (no restrictions) and Breakfast skipped Frequency of exercise: 1 day/week Duration of exercise: 15-30 minutes Taking medications regularly: Yes Medication side effects: Other Additional concerns today: YES Yeast infection? Still having symptoms, has been doing OTC monistat. Urinary incontinence- when going to the bathroom, feeling like she has more left to go. Just started Celexa last night. Saw the concussion specialist last week. Allergies- last spring was sneezing, nose dripping, itching. Didn't try taking anything as she was worried about side effects as she reacts to medicines. PROBLEMS TO ADD ON... Hyperlipidemia Follow-Up ?? Rate your low fat/cholesterol diet?: good ?? Taking statin? Yes, no muscle aches from statin ?? Other lipid medications/supplements?: none Hypertension Follow-up ?? Outpatient blood pressures are being checked at work. Results are normal. ?? Low Salt Diet: no added salt Today's PHQ-2 Score: PHQ-2 (??1998 Pfizer) 10/04/2017 Q1: Little interest or pleasure in doing things 1 Q2: Feeling down, depressed or hopeless 1 PHQ-2 Score 2 Q1: Little interest or pleasure in doing things Several days Q2: Feeling down, depressed or hopeless Several days PHQ-2 Score 2 Abuse: Current or Past(Physical, Sexual or Emotional)- No Do you feel safe in your environment - Yes Social History Substance Use Topics ??? Smoking status: Former Smoker ??? Smokeless tobacco: Never Used Comment: quit smoking at 21 yrs old. smoked 2 to 21/2 ppd ??? Alcohol use 1.2 oz/week 1 Glasses of wine, 1 Shots of liquor per week Comment: socially Alcohol Use 10/04/2017 If you drink alcohol do you typically have greater than 3 drinks per day OR greater than 7 drinks per week? No No flowsheet data found. Reviewed orders with patient. Reviewed health maintenance and updated orders accordingly - Yes Labs reviewed in EPIC BP Readings from Last 3 Encounters: 10/04/17 120/70 09/30/17 118/72 09/27/17 128/70 Wt Readings from Last 3 Encounters: 10/04/17 154 lb 3.2 oz (69.9 kg) 09/30/17 150 lb (68 kg) 09/27/17 153 lb (69.4 kg) Patient over age 50, mutual decision to screen reflected in health maintenance. Pertinent mammograms are reviewed under the imaging tab. History of abnormal Pap smear: NO - age 30-65 PAP every 5 years with negative HPV co-testing recommended PAP / HPV 09/24/2014 PAP NIL Reviewed and updated as needed this visit by clinical staff Reviewed and updated as needed this visit by Provider Review of Systems CONSTITUTIONAL: NEGATIVE for fever, chills, change in weight INTEGUMENTARY/SKIN: NEGATIVE for worrisome rashes, moles or lesions EYES: NEGATIVE for vision changes or irritation ENT: NEGATIVE for ear, mouth and throat problems RESP: NEGATIVE for significant cough or SOB BREAST: NEGATIVE for masses, tenderness or discharge CV: NEGATIVE for chest pain, palpitations or peripheral edema GI: NEGATIVE for nausea, abdominal pain, heartburn, or change in bowel habits menopausal female: incontinence-stress and vaginal discharge MUSCULOSKELETAL: NEGATIVE for significant arthralgias or myalgia NEURO: recovering from concussion PSYCHIATRIC: NEGATIVE for changes in mood or affect OBJECTIVE: LMP 02/22/2010 Physical Exam GENERAL: healthy, alert and no [...] hepatosplenomegaly, no masses and bowel sounds normal (female): normal female external genitalia, normal urethral meatus , vaginal mucosa pink, moist, well rugated, vaginal discharge - white and normal cervix, adnexae, and uterus without masses. MS: no gross musculoskeletal defects noted, no edema SKIN: no suspicious lesions or rashes NEURO: Normal strength and tone, mentation intact and speech normal PSYCH: mentation appears normal and affect flat Diagnostic Test Results: Results for orders placed or performed in visit on 10/04/17 *UA reflex to Microscopic and Culture ([place] [facility] (except [place] and [place]) Result Value Ref Range Color Urine Yellow Appearance Urine Clear Glucose Urine Negative NEG^Negative mg/dL Bilirubin Urine Negative NEG^Negative Ketones Urine Negative NEG^Negative mg/dL Specific [place] Urine 1.020 1.003 - 1.035 Blood Urine Negative NEG^Negative pH Urine 7.0 5.0 - 7.0 pH Protein Albumin Urine Negative NEG^Negative mg/dL Urobilinogen Urine 0.2 0.2 - 1.0 EU/dL Nitrite Urine Negative NEG^Negative Leukocyte Esterase Urine Negative NEG^Negative Source Vagina CBC with platelets Result Value Ref Range WBC 8.4 4.0 - 11.0 10e9/L RBC Count 4.73 3.8 - 5.2 10e12/L Hemoglobin 13.1 11.7 - 15.7 g/dL Hematocrit 41.2 35.0 - 47.0 % MCV 87 78 - 100 fl MCH 27.7 26.5 - 33.0 pg MCHC 31.8 31.5 - 36.5 g/dL RDW 14.0 10.0 - 15.0 % Platelet Count 324 150 - 450 10e9/L Wet prep Result Value Ref Range Specimen Description Vagina Wet Prep No Trichomonas seen Wet Prep No clue cells seen Wet Prep No yeast seen ASSESSMENT/PLAN: 1. Encounter for routine adult medical exam with abnormal findings - Lipid panel reflex to direct LDL Fasting - TSH with free T4 reflex - CBC with platelets - Basic metabolic panel - Vitamin D Deficiency 2. Screening for cervical cancer - Pap imaged thin layer screen with HPV - recommended age 30 - 65 - HPV High Risk Types DNA Cervical 3. Screening for human papillomavirus - see above 4. Vaginal discharge Will check labs. Likely send in Diflucan for her. - *UA reflex to Microscopic and Culture ([place] [facility] (except [place] and [place]) - Wet prep 5. Hypertension goal BP (blood pressure) < 140/90 - continue with atenolol, did not need refills yet. When needed it is ok to refill. BP controlled today. 6. Pure hypercholesterolemia Check labs. Did not need refill of zocor, when needed refills are ok. 7. Mixed incontinence Discussed using this as a trial. UA is clear. Discussed mechanism of action of medication, proper dosing, potential side effects and appropriate follow up. - oxybutynin (DITROPAN XL) 5 MG 24 hr tablet; Take 1 tablet (5 mg) by mouth daily Dispense: 30 tablet; Refill: 1 8. Visit for screening mammogram - *MA Screening Digital Bilateral; Future COUNSELING: Reviewed preventive health counseling, as reflected in patient instructions BP Readings from Last 1 Encounters: 09/30/17 118/72 Estimated body mass index is 27.44 kg/(m^2) as calculated from the following: Height as of 09/30/17: 5' 2 (1.575 m). Weight as of 09/30/17: 150 lb (68 kg). Weight management plan: Discussed healthy diet and exercise guidelines and patient will follow up in6 months in clinic to re-evaluate. reports that she has quit smoking. She has never used smokeless tobacco. Counseling Resources: ATP IV Guidelines Pooled Cohorts Equation Calculator Breast Cancer Risk Calculator FRAX Risk Assessment ICSI Preventive Guidelines Dietary Guidelines for Americans, 2010 USDA's MyPlate ASA Prophylaxis Lung CA Screening Kleber Ng PA-C [facility] documented in this encounter Plan of Treatment Not on filedocumented as of this encounter Procedures Procedure Name Priority Date/Time Associated Comments Diagnosis HPV HIGH RISK TYPES Routine 10/04/2017 12:22 Screening for Res ults for this DNA CERVICAL PM CDT cervical cancer procedure ar e in the results section. WET PREPARATION Routine 10/04/2017 12:20 Vaginal discharge Res ults for this PM CDT procedure are i n the results section. UA MACROSCOPIC WITH Routine 10/04/2017 12:16 Vaginal discharge Results for this REFLEX TO MICROSCOPIC PM CDT proced ure are in AND CULTURE the results section. VITAMIN D DEFICIENCY Routine 10/04/2017 12:16 Encounter for Re sults for this SCREENING PM CDT routine adult procedure are in medical exam with the result s abnormal findings section. TSH WITH FREE T4 Routine 10/04/2017 12:16 Encounter for Result s for this REFLEX PM CDT routine adult procedure are in medical exam with the result s abnormal findings section. LIPID REFLEX TO Routine 10/04/2017 12:16 Encounter for Results for this DIRECT LDL PANEL PM CDT routine adult procedure are in medical exam with the result s abnormal findings section. BASIC METABOLIC PANEL Routine 10/04/2017 12:16 Encounter for R esults for this PM CDT routine adult procedure are in medical exam with the result s abnormal findings section. CBC WITH PLATELETS Routine 10/04/2017 12:16 Encounter for Resu lts for this PM CDT routine adult procedure are in medical exam with the result s abnormal findings section. PAP IMAGED THIN LAYER Routine 10/04/2017 12:02 Screening for R esults for this SCREEN PM CDT cervical cancer procedure ar e in the results section. documented in this encounter Results HPV High Risk Types DNA Cervical (10/04/2017 12:22 PM CDT) [facility] Method Time Signature HPV Source [facility] 10/04/2017 [facility] 12:02 PM CDT [facility] HPV 16 DNA Negative NEG^Negat 10/08/2017 [facility] 1:52 PM CDT [facility] HPV 18 DNA Negative NEG^Negat 10/08/2017 [facility] [place] 1:52 PM CDT [facility] Other HR HPV Negative NEG^Negat 10/08/2017 [facility] [place] 1:52 PM CDT [facility] Final This 10/08/2017 [facility] patient's 1:52 PM CDT [place] [facility] sample is [facility] negative for [place] HPV DNA. Comment: This test was developed and its performa nce characteristics determined by the [facility], Molecular Diagnostics Laboratory. It has not been cleared or approved by the FDA. The laboratory is regulated under CLIA as qualified to perform high-compl exity testing. This test is used for clinical purposes. It should not be rega rded as investigational or for research. (Note) METHODOLOGY: ??The Leif laith 4800 syst em uses automated extraction, simultaneous amplification of HPV (L1 re gion) and beta-globin, ?? followed by ??real time detection of flu orescent labeled HPV and beta globin using specific oligonucleotide pr obes . The test specifically identifies types HPV 16 DNA and HPV 18 D NA while concurrently detecting the rest of the high risk type s (31, 33, 35, 39, 45, 51, 52, 56, 58, 59, 66 or 68). COMMENTS: ??This test is not intended fo r use as a screening device for women under age 30 with normal cervi mary cytology. ??Results should be correlated with cytologic and histolo gic findings. Close clinical followup is recommended. Specimen Description Cervical Cells 10/07/2017 8:5 3 AM CDT [facility] Comment: [id number] Specimen Anatomical Collection Method Collection Time Receive d Time (Source) Location / / Volume Laterality Cervical Cells 10/04/2017 12:22 8 PM CDT 12:28 PM CDT Kleber Ng PA-C LAB - BLOOD ORDERABLES Performing Organization Address City/State/ZIP Code Phon e Number [address] [address] [facility] [address] [place] [address] Wet prep (10/04/2017 12:20 PM CDT) Component Value Ref Test Analysis Performed At [facility] gist Range Method Time Signature Specimen Vagina [facility] Description [facility] Wet Prep No Trichomonas 10/04/2017 [facility] seen 12:27 PM CLINICS CDT [place] Wet Prep No clue cells 10/04/2017 [facility] seen 12:27 PM [facility] [place] Wet Prep No yeast seen 10/04/2017 [facility] 12:27 PM CLINICS CDT [place] Specimen Anatomical Collection Method Collection Time Receive d Time (Source) Location / / Volume Laterality Specimen from 10/04/2017 12:20 10/04/2017 vagina PM CDT 12:25 PM CDT (specimen) Kleber Jannie Ng PA-C LAB - MICRO GENERAL ORDERABL ES Performing Organization Address City/State/ZIP Code Phon e Number [facility] [id number] [place] [address] Vitamin D Deficiency (10/04/2017 12:16 PM CDT) athologist Signature Vitamin D 32 20 - 75 10/06/2017 [facility] ug/L 1:26 PM CDT [place] [facility] Comment: Season, race, dietary intake, and treatm ent affect the concentration of 34-ybhrcbf-Ittgzea D. Values may decreas e during winter months and increase during summer months. Values 20-29 ug/L may indicate Vitamin D insufficiency and values <20 ug/L may indicate Vitamin D deficiency. Vitamin D determination is routinely per formed by an immunoassay specific for 25 hydroxyvitamin D3. ??If an individual is on vitamin D2 (ergocalciferol) supplementation, please specify 25 OH vi tamin D2 and D3 level determination by LCMSMS test VITD23. Specimen Anatomical Collection Method Collection Time Receive d Time (Source) Location / / Volume Laterality Blood specimen 10/04/2017 12:16 8 (specimen) PM CDT 12:21 PM CDT Kleber Ng PA-C LAB - BLOOD ORDERABLES Performing Organization Address City/State/ZIP Code Phon e Number [address] [address] [facility] Basic metabolic panel (10/04/2017 12:16 PM CDT) athologist Signature Sodium 139 133 - 144 10/06/2017 [facility] mmol/L 9:07 AM CDT [facility] Potassium 4.0 3.4 - 5.3 10/06/2017 [facility] mmol/L 9:07 AM CDT [facility] Chloride 103 94 - 109 10/06/2017 [facility] mmol/L 9:07 AM CDT [facility] Carbon Dioxide 29 20 - 32 10/06/2017 [facility] mmol/L 9:07 AM CDT [facility] Anion Gap 7 3 - 14 10/06/2017 [facility] mmol/L 9:07 AM CDT [facility] Glucose 77 70 - 99 10/06/2017 [facility] mg/dL 9:07 AM CDT [facility] Comment: Fasting specimen Urea Nitrogen 12 7 - 30 mg/dL 10/06/2017 9:07 AM CDT [facility] Creatinine 0.83 0.52 - 1.04 mg/dL 10/06/2017 9:07 AM CD T [facility] GFR Estimate 70 >60 mL/min/1.7m2 10/06/2017 9:07 AM C DT [facility] Comment: Non GFR Calc GFR Estimate If 85 >60 mL/min/1.7m2 10/06/2017 9:07 A M [facility] Black CDT [facility] Comment: GFR Calc Calcium 8.7 8.5 - 10.1 mg/dL 10/06/2017 9:07 AM CDT [facility] Specimen Anatomical Collection Method Collection Time Receive d Time (Source) Location / / Volume Laterality Blood specimen 10/04/2017 12:16 8 (specimen) PM CDT 12:21 PM CDT Kleber Ng PA-C LAB - BLOOD ORDERABLES Performing Organization Address City/State/ZIP Code Phon e Number [facility] [address] [place] [address] CBC with platelets (10/04/2017 12:16 PM CDT) P athologist Signature WBC 8.4 4.0 - 11.0 10/04/2017 [place] 10e9/L 3:09 PM CDT [facility] RBC Count 4.73 3.8 - 5.2 10/04/2017 [place] 10e12/L 3:09 PM CDT [facility] Hemoglobin 13.1 11.7 - 10/04/2017 [place] 15.7 g/dL 3:09 PM CDT [facility] Hematocrit 41.2 35.0 - 10/04/2017 [place] 47.0 % 3:09 PM CDT [facility] MCV 87 78 - 100 10/04/2017 [place] fl 3:09 PM CDT [facility] MCH 27.7 26.5 - 10/04/2017 [place] 33.0 pg 3:09 PM CDT [facility] MCHC 31.8 31.5 - 10/04/2017 [place] 36.5 g/dL 3:09 PM CDT [facility] RDW 14.0 10.0 - 10/04/2017 [place] 15.0 % 3:09 PM CDT [facility] Platelet Count 324 150 - 450 10/04/2017 [facility] 10e9/L 3:09 PM CDT [facility] Specimen Anatomical Collection Method Collection Time Receive d Time (Source) Location / / Volume Laterality Blood specimen 10/04/2017 12:16 8 (specimen) PM CDT 12:21 PM CDT Kleber Ng PA-C LAB - BLOOD ORDERABLES Performing Organization Address City/[facility]/ZIP Code Phon e Number [facility] [place] [address] TSH with free T4 reflex (10/04/2017 12:16 PM CDT) P athologist Signature TSH 2.18 0.40 - 4.00 10/06/2017 [place] BARNETT mU/L 9:07 AM CDT [facility] Specimen Anatomical Collection Method Collection Time Receive d Time (Source) Location / / Volume Laterality Blood specimen 10/04/2017 12:16 8 (specimen) PM CDT 12:21 PM CDT Kleber Ng PA-C LAB - BLOOD ORDERABLES Performing Organization Address City/State/ZIP Code Phon e Number [facility] [address] [place] [address] *UA reflex to Microscopic and Culture ([place] [facility] (except [place] and [place]) (10/04/2017 12:16 PM CDT) Patholo gist Method Time Signature Color Urine Yellow 10/04/2017 [facility] 12:30 PM CDT [facility] Appearance Urine Clear 10/04/2017 [facility] 12:30 PM CDT [facility] Glucose Urine Negative NEG^Negat 10/04/2017 [facility] [place] mg/dL 12:30 PM CDT [facility] Bilirubin Urine Negative NEG^Negat 10/04/2017 [facility] [place] 12:30 PM CDT [facility] Ketones Urine Negative NEG^Negat 10/04/2017 [facility] [place] mg/dL 12:30 PM CDT [facility] Specific [place] 1.020 1.003 - 10/04/2017 [facility] Urine 1.035 12:30 PM CDT [facility] Blood Urine Negative NEG^Negat 10/04/2017 [facility] [place] 12:30 PM CDT [facility] pH Urine 7.0 5.0 - 7.0 10/04/2017 [facility] pH 12:30 PM CDT [facility] Protein Albumin Negative NEG^Negat 10/04/2017 [facility] Urine [place] mg/dL 12:30 PM CDT [facility] [place] Urobilinogen 0.2 0.2 - 1.0 10/04/2017 [facility] Urine EU/dL 12:30 PM CDT [facility] Nitrite Urine Negative NEG^Negat 10/04/2017 [facility] [place] 12:30 PM CDT [facility] [place] Leukocyte Negative NEG^Negat 10/04/2017 [facility] Esterase Urine [place] 12:30 PM CDT [facility] Source Vagina 10/04/2017 [facility] 12:21 PM CDT [facility] Specimen Anatomical Collection Method Collection Time Receive d Time (Source) Location / / Volume Laterality Specimen from 10/04/2017 12:16 10/04/2017 vagina PM CDT 12:21 PM CDT (specimen) Kleber Ng PA-C LAB - URINE ORDERABLES Performing Organization Address City/State/ZIP Code Phon e Number [facility] [address] [place], [place] [id number] (ABNORMAL) Lipid panel reflex to direct LDL Fasting (10/04/2017 12:16 PM CDT) Analysis Performed At Patho logist Time Signature Cholesterol 195 <200 mg/dL 10/06/2017 [facility] 9:07 AM CDT [facility] Triglycerides 157 (H) <150 mg/dL 10/06/2017 [facility] 9:07 AM CDT [facility] Comment: Borderline high: ??150-199 mg/dl High: ? 200-499 mg/dl Very high: ? >499 mg/dl Fasting specimen HDL Cholesterol 55 >49 mg/dL 10/06/2017 9:07 AM [facility] CDT [facility] LDL Cholesterol 109 (H) <100 mg/dL 10/06/2017 9:[address] [facility] Calculated CDT [facility] Comment: Above desirable: ??100-129 mg/dl Borderline High: ??130-159 mg/dL High: ? 160-189 mg/dL Very high: ? >189 mg/dl Non HDL Cholesterol 140 (H) <130 mg/dL 10/06/2017 9:07 [facility] Comment: Above Desirable: ??130-159 mg/dl Borderline high: ??160-189 mg/dl High: ? 190-219 mg/dl Very high: ? >219 mg/dl Specimen Anatomical Collection Method Collection Time Receive d Time (Source) Location / / Volume Laterality Blood specimen 10/04/2017 12:16 8 (specimen) PM CDT 12:21 PM CDT Kleber Ng PA-C LAB - BLOOD ORDERABLES Performing Organization Address City/State/ZIP Code Phon e Number [facility] [address] [place] [address] Pap imaged thin layer screen with HPV - recommended age 30 - 65 (10/04/2017 12:02 PM CDT) Component Value Ref Test Analysis Performed At [facility] Range Method Time Signature PAP NIL COPATH Copath Report COPATH Patient Name: MICAH SCOTT MR#: [id number] Specimen #: [id number] Collected: 10/04/2017 Received: 10/05/2017 Reported: 10/06/2017 09:37 Ordering Phy(s): KLEBER NG For improved result formatting, select 'View Enhanced Report Format' under Linked Documents section. SPECIMEN/STAIN PROCESS: Pap imaged thin layer prep screening (Surepath, FocalPoint w ith guided screening) ? Pap-Cyto x 1, HPV ordered x 1 SOURCE: Cervical, endocervical ---- Pap imaged thin layer prep screening (Surepath, FocalPoint with guided screening) SPECIMEN ADEQUACY: Satisfactory for evaluation. -Transformation zone component absent. CYTOLOGIC INTERPRETATION: Negative for intraepithelial lesion or malignancy Electronically signed out by: CHRISTINA Paris ??(ASCP) Processed and screened at [facility] CLINICAL HISTORY: LMP: 02/22/2010 A previous normal pap Date of Last Pap: 09/24/2014, Papanicolaou Test Limitations: ??Cervical cytology is a sc reening test with limited sensitivity; regular screening is critical for cancer prevention; Pap tests are p rimarily effective for the diagnosis/prevention of squamous cell carcinoma, not adenocarcinomas or other cancer s. TESTING LAB LOCATION: [address] ??[id number] COLLECTION SITE: Client: ??[facility] Location: [facility] (R) Specimen (Source) Anatomical Collection Method Collection Time Re ceived Time Location / / Volume Laterality Cytologic 10/04/2017 12:02 10/05/2017 8:36 material PM CDT AM CDT (specimen) Kleber Ng PA-C LAB - OPTIME CLINICAL SPECIM EN Performing Organization Address City/State/ZIP Code Phon e Number [place] documented in this encounter Visit Diagnoses Diagnosis Encounter for routine adult medical exam with abnormal findings - Primary Screening for cervical cancer Screening for malignant neoplasm of the cervix Screening for human papillomavirus Special screening examination for human papillomavirus (HPV) Vaginal discharge Leukorrhea, not specified as infective Hypertension goal BP (blood pressure) < 140/90 Unspecified essential hypertension Pure hypercholesterolemia Mixed incontinence Mixed incontinence urge and stress (male )(female) Visit for screening mammogram Other screening mammogram documented in this encounter Additional Health Concerns Assessment Noted Time PHQ-9 Depression Total Score: 11 10/01/2017 7:03 AM CD T documented as of this encounter Care Teams Receiving Worker Relationship Specialty Start Date End Date Kleber Ng, PCP - General Physician Block Engraver - 05/15/14 [facility] Kleber Ng, PCP - Assigned PCP 09/19/17 04/12/18 PA-C [id number] [address], [place] [address] Kleber Ng, Assigned PCP 09/19/17 PA-C [id number] LUZMARIA REES [id number] documented as of this encounter
--- OUTSIDE RECORDS SUMMARY | 2022-01-05 11:36 | XMS_ITS | Encounter Summary ---
:1960 Author Organization [facility] Address [address] [place] [address] Care Team Providers Name Role Phone Kleber Ledesma PA-C Primary Care Provider [phone] Reason for Visit Diagnostic Imaging XR - Closed Specialty Diagnoses / Procedures Referred By Contact Refer red To Contact Diagnoses Primary osteoarthritis of right knee Francesca Machado, Procedures XR Knee Right 3 Views XR Knee Standing Right 2 Views RACHNA [facility] [place] [address] Referral ID Status Reason Start Date Expiration Date Visits Requ ested Visits Authorized [id number] Closed 07/21/2017 07/21/2018 1 1 Encounter Details Date Type Department Care Team Description 07/21/2017 Radiant Appointment [facility] Francesca Machado [facility] RACHNA Yang [address] [facility], [facility] [address] [place], [place] [id number] [phone] Social History Tobacco Use Types Packs/Day Years [...] Priority Date/Time Associated Diagnosis Comme nts XR KNEE RIGHT 3 Routine 07/21/2017 4:08 PM Primary osteoarthri tis Results for this VIEWS CDT of right knee procedure are in the results section. documented in this encounter Results XR Knee Right 3 Views (07/21/2017 4:08 PM CDT) Anatomical Region Laterality Modality Thigh, Knee, Leg Right Computed Radiography Specimen (Source) Anatomical Location Collection Method / Collectio n Time Received Time / Laterality Volume Impressions 07/21/2017 6:23 PM CDT IMPRESSION: No acute fracture or dislocation. Minimal changes of osteoarthritis. WILL TEE MD Narrative 07/21/2017 6:23 PM CDT KNEE RIGHT THREE VIEWS ?07/21/2017 4:08 PM HISTORY: Pain began yesterday while [facility] Acute pain of right knee. COMPARISON: None. Procedure Note Will Tee MD - 07/21/2017Form atting of this note might be different from the original. KNEE RIGHT THREE VIEWS 07/21/2017 4:08 PM HISTORY: Pain began yesterday [facility]. Acute pain of right knee. COMPARISON: None. IMPRESSION: No acute fracture or disloca tion. Minimal changes of osteoarthritis. WILL TEE MD Francesca Machado PA-C IMG DIAGNOSTIC IMAGING ORD ERABLES documented in this encounter Visit Diagnoses Not on filedocumented in this encounter Care Teams Category Manager Relationship Specialty Start Date End Date Kleber Ledesma, PCP - General Physician Chemical Compounder Helper - 05/15/14 [facility] documented as of this encounter
--- OUTSIDE RECORDS SUMMARY | 2022-01-05 11:36 | XMS_ITS | Encounter Summary ---
:1960 Author Organization [place] Address [address] [place] [address] Care Team Providers Name Role Phone Kleber Ledesma PA-C Primary Care Provider Encounter Details Date Type Department Care Team Description 10/19/2016 Orders Only [facility] Mix ed hyperlipidemia [facility], [address] [place] [address] Social History Tobacco Use Types Packs/Day Years [...] Name Priority Date/Time Associated Diagnosis Comme nts HEPATITIS C SCREEN Routine 10/19/2016 8:52 AM Mixed hyperlipid emia Results for this REFLEX TO HCV RNA CDT procedure are in QUANT AND GENOTYPE the resul ts section. LIPID REFLEX TO Routine 10/19/2016 8:52 AM Mixed hyperlipidemi a Results for this DIRECT LDL PANEL CDT procedure a re in the results section. documented in this encounter Results Hepatitis C Screen Reflex to RNA FUTURE anytime (10/19/2016 8:52 AM CDT) [facility] Method Time Signature Hepatitis C Nonreactive NR^Nonrea 10/20/2016 [facility] ctive 12:58 PM CDT [facility] Comment: Assay performance characteristics have n ot been established for newborns, infants, and children Specimen Anatomical Collection Method Collection Time Receive d Time (Source) Location / / Volume Laterality Blood specimen 10/19/2016 8:52 AM 017 8:57 (specimen) CDT AM CDT Kleber Ledesma PA-C LAB - BLOOD ORDERABLES Performing Organization Address City/State/ZIP Code Phon e Number [facility] [address] [place] [address] [facility] (ABNORMAL) Lipid panel reflex to direct LDL (10/19/2016 8:52 AM CDT) Analysis Performed At [facility] Signature Cholesterol 184 <200 mg/dL 10/19/2016 [place] 5:41 PM CDT [facility] Triglycerides 152 (H) <150 mg/dL 10/19/2016 [place] 5:41 PM CDT [facility] Comment: Borderline high: ??150-199 mg/dl High: ? 200-499 mg/dl Very high: ? >499 mg/dl Fasting specimen HDL Cholesterol 66 >49 mg/dL 10/19/2016 5:45 PM CDT [facility] LDL Cholesterol 88 <100 mg/dL 10/19/2016 5:45 PM CDT [facility] Comment: Desirable: <100 mg/dl Non HDL Cholesterol 118 <130 mg/dL 10/19/2016 5:45 PM CDT [facility] Specimen Anatomical Collection Method Collection Time Receive d Time (Source) Location / / Volume Laterality Blood specimen 10/19/2016 8:52 AM 017 8:57 (specimen) CDT AM CDT Kleber Ledesma PA-C LAB - BLOOD ORDERABLES Performing Organization Address City/State/ZIP Code Phon e Number [facility] [address] [place] [address] documented in this encounter Visit Diagnoses Diagnosis Mixed hyperlipidemia documented in this encounter Care Teams Face Painter Relationship Specialty Start Date End Date Kleber Ledesma, PCP - General Physician Perforator - 05/15/14 [facility] documented as of this encounter
--- OUTSIDE RECORDS SUMMARY | 2022-01-05 11:36 | XMS_ITS | Encounter Summary ---
:1960 Author Organization [place] Address [address] [place] [address]. [place] [address] Care Team Providers Name Role Phone Kleber Ledesma PA-C Primary Care Provider [phone] Reason for Visit Reason Comments Musculoskeletal Problem left leg numbness x1.5 month s Encounter Details Date Type Department Care Team Description 05/11/2017 Office Visit [facility] Jose M Rees Meralgia paresthetica Clinic Thomas Damon MD of left side (Primary [address] [place] [address] [facility]) [facility], [address] [place] [id number] Social History Tobacco Use Types Packs/Day [...] Sign Reading Time Taken Comments Blood Pressure 118/68 05/11/2017 11:18 AM CDT Pulse 77 05/11/2017 11:18 AM CDT Temperature 36.8 ??C (98.2 ??F) 05/11/2017 11:18 AM CDT Respiratory Rate 20 05/11/2017 11:18 AM CDT Oxygen Saturation 95% 05/11/2017 11:18 AM CDT Inhaled Oxygen Concentration - - Weight 67.5 kg (148 lb 14.4 oz) 05/11/2017 11:18 AM CDT Height - - Body Mass Index 27.23 02/12/2017 2:23 PM WARP PICKER documented in this encounter Patient Instructions Patient InstructionsBendJose M leija MD - 05/11/2017 11:20 AM CDT [facility] documented in this encounter Progress Notes Jose M Rees MD - 05/11/2017 11:20 AM CDT Images from the original note were not included. HPI SUBJECTIVE: Amie Scott is a 57 year old female who presents to clinic today for the following health issues: Joint Pain ?? Onset: x1.5 months ?? Description: Location: left upper leg Character: Burning ?? Intensity: 4-8/10 ?? Progression of Symptoms: worse ?? Accompanying Signs & Symptoms: Other symptoms: numbness and tingling ?? History: Previous similar pain: no ?? Precipitating factors: Trauma or overuse: No ?? Alleviating factors: Improved by: ibuprofen Therapies Tried and outcome: ibuprofen L thigh gets numb and tingly periodically over the last 6 weeks, will sometimes be a bit burning. Onanteriolateral aspect of leg, sometimes up towards hip. Also occasionally while leg will feel achy in the evening. 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 Has history of neck injury, but no history of low back injury. No vivian weakness. Also notes that feet are often cold. Notes that brother passed from complications of diabetes. She has not, to this point, been diabetic Review of Systems Constitutional: Negative. Respiratory: Negative. Cardiovascular: Negative. Musculoskeletal: Negative for falls and joint pain. Neurological: Positive for tingling and sensory change. Negative for focal weakness. Physical Exam Constitutional: She is oriented to person, place, and time and well-developed, well-nourished, and in no distress. Musculoskeletal: Legs: Altered sensation Neurological: She is alert and oriented to person, place, and time. Skin: Skin is warm and dry. Vitals reviewed. (G57.12) Meralgia paresthetica of left side (primary encounter diagnosis) Comment: frustratingly, little to be done. Can consider referral to neuro if not resolving Plan: Basic metabolic panel, CBC with platelets RTC in 1m Jose M Rees MD documented in this encounter Nursing Notes Liz Wooten CMA - 05/11/2017 11:20 AM CDT Chief Complaint Patient presents with ??? Musculoskeletal Problem left leg numbness x1.5 months Initial BP 118/68 (BP Location: Right arm, Patient Position: Chair, Cuff Size: Adult Large) Pulse 77 Temp 98.2 ??F (36.8 ??C) (Oral) Resp 20 Wt 148 lb 14.4 oz (67.5 kg) LMP 02/22/2010 SpO2 95% ? No BMI 27.23 kg/m2 Estimated body mass index is 27.23 kg/(m^2) as calculated from the following: Height as of 18: 5' 2 (1.575 m). Weight as of this encounter: 148 lb 14.4 oz (67.5 kg). Medication Reconciliation: complete Liz Wooten CMA (AAMA) documented in this encounter Plan of Treatment Not on filedocumented as of this encounter Procedures Procedure Name Priority Date/Time Associated Diagnosis Comme nts BASIC METABOLIC Routine 05/11/2017 11:41 Meralgia paresthetica Results for this PANEL AM CDT of left side procedure are i n the results section. CBC WITH PLATELETS Routine 05/11/2017 11:41 Meralgia paresthet ica Results for this AM CDT of left side procedure are i n the results section. documented in this encounter Results CBC with platelets (05/11/2017 11:41 AM CDT) athologist Signature WBC 7.1 4.0 - 11.0 05/11/2017 [facility] 10e9/L 12:10 PM CDT [facility] RBC Count 4.81 3.8 - 5.2 05/11/2017 [facility] 10e12/L 12:10 PM CDT [facility] Hemoglobin 13.0 11.7 - 05/11/2017 [facility] 15.7 g/dL 12:10 PM CDT [facility] Hematocrit 41.2 35.0 - 05/11/2017 [facility] 47.0 % 12:10 PM CDT [facility] MCV 86 78 - 100 05/11/2017 [place] fl 12:10 PM CDT [facility] MCH 27.0 26.5 - 05/11/2017 [place] 33.0 pg 12:10 PM CDT [facility] MCHC 31.6 31.5 - 05/11/2017 [facility] 36.5 g/dL 12:10 PM CDT [facility] RDW 13.1 10.0 - 05/11/2017 [place] 15.0 % 12:10 PM CDT [facility] Platelet Count 262 150 - 450 05/11/2017 [place] 10e9/L 12:10 PM CDT [facility] Specimen Anatomical Collection Method Collection Time Receive d Time (Source) Location / / Volume Laterality Blood specimen 05/11/2017 11:41 8 (specimen) AM CDT 11:46 AM CDT Jose M Rees MD LAB - BLOOD ORDERABLES Performing Organization Address City/State/ZIP Code Phon e Number [facility] [address] [place] [address] (ABNORMAL) Basic metabolic panel (05/11/2017 11:41 AM CDT) [facility] Method Time Signature Sodium 140 133 - 144 05/11/2017 [place] mmol/L 5:[address] [facility] Potassium 3.2 (L) 3.4 - 5.3 05/11/2017 [place] mmol/L 5:09 PM CDT [facility] Chloride 105 94 - 109 05/11/2017 [place] mmol/L 5:09 PM CDT [facility] Carbon Dioxide 30 20 - 32 05/11/2017 [place] mmol/L 5:09 PM CDT [facility] Anion Gap 5 3 - 14 05/11/2017 [place] mmol/L 5:[address] [facility] Glucose 109 (H) 70 - 99 05/11/2017 [place] mg/dL 5:[address] [facility] Urea Nitrogen 16 7 - 30 05/11/2017 [place] mg/dL 5:[address] [facility] Creatinine 0.90 0.52 - 05/11/2017 [place] 1.04 mg/dL 5:[address] [facility] GFR Estimate 64 >60 05/11/2017 [place] mL/min/1.7 5:09 PM CDT CLINICS m2 [facility] Comment: Non GFR Calc GFR Estimate If 78 >60 mL/min/1.7m2 05/11/2017 5:09 P M [facility] Black T [facility] Comment: GFR Calc Calcium 8.8 8.5 - 10.1 mg/dL 05/11/2017 5:09 PM CDT [facility] Specimen Anatomical Collection Method Collection Time Receive d Time (Source) Location / / Volume Laterality Blood specimen 05/11/2017 11:41 8 (specimen) AM CDT 11:46 AM CDT Jose M Rees MD LAB - BLOOD ORDERABLES Performing Organization Address City/State/ZIP Code Phon e Number [facility] [address] [place] [address] documented in this encounter Visit Diagnoses Diagnosis Meralgia paresthetica of left side - Ivy kyara Meralgia paresthetica documented in this encounter Care Teams Chief Vendor Quality Relationship Specialty Start Date End Date Kleber Ledesma, PCP - General Physician Candy Polisher - 05/15/14 PADeanneC Medical documented as of this encounter
--- OUTSIDE RECORDS SUMMARY | 2022-01-05 11:36 | XMS_ITS | Encounter Summary ---
:1960 Author Organization [facility] Address [address] [place] [address] Care Team Providers Name Role Phone Kleber Ledesma PA-C Primary Care Provider [phone] Reason for Visit Reason Comments Musculoskeletal Problem Encounter Details Date Type Department Care Team Description [facility]2016 [facility] ([facility] Dx[facility] [place] RACHNA Valderrama Tendinitis of ankle or foot [place] [address] [facility], [address] [place], [place] [id number] [place] [address] (Wo rk) [address] [phone] Social History Tobacco Use Types Packs/Day Years [...] Sign Reading Time Taken Comments Blood Pressure 92/64 08/25/2016 8:42 AM CDT Pulse 64 08/25/2016 8:42 AM CDT Temperature 36.7 ??C (98.1 ??F) 08/25/2016 8:42 AM CDT Respiratory Rate 20 08/25/2016 8:42 AM CDT Oxygen Saturation - - Inhaled Oxygen Concentration - - Weight 66.7 kg (147 lb) 08/25/2016 8:42 AM CDT Height - - Body Mass Index 26.89 03/17/2016 3:37 PM COUNTRY PRINTER APPRENTICE documented in this encounter Progress Notes Kleber Ledesma PA-C - 08/25/2016 8:40 AM CDT SUBJECTIVE: Amie Scott is a 56 year old female who presents to clinic today for the following health issues: Musculoskeletal problem/pain ?? Duration: couple weeks ?? Description Location: right ankle/foot ?? Intensity: 2-10/10 ?? Accompanying signs and symptoms: numbness, weakness of ankle and swelling, extreme pain with stepping wrong on it, cracking feeling in ankle area ?? History Previous similar problem: YES- unsure which ankle Previous evaluation: none ?? Precipitating or alleviating factors: Trauma or overuse: YES Aggravating factors include: standing, walking, climbing stairs and overuse ?? Therapies tried and outcome: ice and NSAID - Advil Two weeks worth of progressing pain in the right ankle without known injury. 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 Last night had severe pain while sleeping and could not move the ankle at all so decided to come in for eval. Notes that it was also swollen. No erythema or warmth noted. A few days ago while working she also felt that she could hear and feel some cracking in the ankle bones. Today she is afraid to move the ankle because if she moves it just wrong it will cause severe pain. Problem list and histories reviewed & adjusted, as indicated. Additional history: as documented Reviewed and updated as needed this visit by clinical staff Tobacco Allergies Problems Med Hx Surg Hx Fam Hx Soc Hx Reviewed and updated as needed this visit by Provider ROS: Constitutional, HEENT, cardiovascular, pulmonary, gi and gu systems are negative, except as otherwise noted. OBJECTIVE: BP 92/64 (BP Location: Right arm, Patient Position: Sitting, Cuff Size: Adult Regular) Pulse 64 Temp 98.1 ??F (36.7 ??C) (Oral) Resp 20 Wt 147 lb (66.7 kg) LMP 02/22/2010 BMI 26.89 kg/m2 Body mass index is 26.89 kg/(m^2). GENERAL: healthy, alert and no distress MS: peripheral pulses normal, ++tenderness to palpation at deltoid ligament region and ROM is limited due to pain and fear of eliciting pain. There is no deformity noted, no currently swelling, no warmth and no erythema. SKIN: no suspicious lesions or rashes PSYCH: mentation appears normal, affect normal/bright Diagnostic Test Results: Xray - normal- possibly some arthritis changes? Rad report pending ASSESSMENT/PLAN: 1. Acute right ankle pain - XR Ankle Right G/E 3 Views; Future - order for DME; Ankle brace Dispense: 1 each; Refill: 0 2. Tendinitis of ankle or foot - ice, elevate, rest. Can take tylenol or ibuprofen as well. Rtc if sxs change, worsen or fail to resolve with above tx. Kleber Ledesma PA-C [facility] documented in this encounter Nursing Notes Gabrielle Garcia MA - 08/25/2016 8:40 AM CDT Chief Complaint Patient presents with ??? Musculoskeletal Problem Initial BP 92/64 (BP Location: Right arm, Patient Position: Sitting, Cuff Size: Adult Regular) Pulse 64 Temp 98.1 ??F (36.7 ??C) (Oral) Resp 20 Wt 147 lb (66.7 kg) LMP 02/22/2010 BMI 26.89 kg/m2 Estimated body mass index is 26.89 kg/(m^2) as calculated from the following: Height as of 17: 5' 2 (1.575 m). Weight as of this encounter: 147 lb (66.7 kg). Medication Reconciliation: complete Gabrielle Garcia MA documented in this encounter Plan of Treatment Not on filedocumented as of this encounter Results XR Ankle Right G/E [...] Visit Diagnoses Diagnosis Acute right ankle pain - Primary Tendinitis of ankle or foot Acute right ankle pain documented in this encounter Care Teams Drier And Pulverizer Tender Relationship Specialty Start Date End Date Kleber Ledesma, PCP - General Physician Director Of Solutions Architecture - 05/15/14 [facility] documented as of this encounter
--- OUTSIDE RECORDS SUMMARY | 2022-01-05 11:36 | XMS_ITS | Encounter Summary ---
:1960 Author Organization [facility] Address [address] [place] [address] Care Team Providers Name Role Phone Kleber Ledesma PA-C Primary Care Provider [phone] Kleber Ledesma PA-C Unavailable [phone] Kleber Ledesma PA-C Unavailable [phone] Sasha Tai RN Unavailable Unavailable Junie Rm PA-C Unavailable Patricia Brown RN Unavailable Kleber Ledesma PA-C Unavailable [phone] Encounter Details Date Type Department Care Team Description 09/20/2017 Records - [facility] CONVERSION Provider, Curt sneed Social History Tobacco Use Types Packs/Day Years [...] Indicated Resolved Time Rule Out COVID-19 01/08/2020 01/08/202001/09/2020 1:3 2 AM GLASS TECHNICIAN COVID-19 01/08/2020 01/08/2020 01/29/2020 11:40 PM GLASS TECHNICIAN documented as of this encounter Care Teams Digital Advertising Analyst Relationship Specialty Start Date End Date Kleber Ledesma PCP - General Physician Integration Engineer - 05/15/14 [facility] Kleber Ledesma PCP - Assigned PCP 09/19/17 9 [facility] [place] [address] [place] [place], [place] [phone] Kleber Ledesma Assigned PCP 09/19/17 06/01/20 [facility] [place] [address] [place] [place], [place] [phone] Sasha Tai, RN Personal Advocate [facility] Family Practice 11/02/19 02/14/20 Liaison (PAL) Junie Rm, Assigned PCP 06/02/20 06/08/20 [place] [address] [place] [place], [place] [phone] Patricia Brown, RN Clinic Interior Design Assistant 06/03/20 06/03/20 Kleber Ledesma Assigned PCP 06/09/20 [facility] [place] [address] [place] [place], [place] [phone] documented as of this encounter
--- OUTSIDE RECORDS SUMMARY | 2022-01-05 11:36 | XMS_ITS | Encounter Summary ---
:1960 Author Organization [place] Address [address] [place] [address]. [place] [address] Care Team Providers Name Role Phone Kleber Ledesma PA-C Primary Care Provider [phone] Reason for Visit Reason Onset Date Comments Refill Request 02/09/2017 simvastatin and aten olol-chlorthalidone Encounter Details Date Type Department Care Team Description 02/09/2017 Refill [facility] Kleber Ledesma Refill Request [facility] [place] RACHNA Valderrama (simvastatin and [address] [facility], [address] [place] [address] atenolol-chlorthalidone [address] [place] [address] ) [place], [place] [phone] (Wo rk) [address] [phone] Social History Tobacco Use Types Packs/Day Years [...] Telephone Encounter - Deisy Elizabeth RN - 02/11/2017 9:20 AM CST Creatinine Date Value Ref Range Status 11/04/2015 0.84 0.52 - 1.04 mg/dL Final Potassium Date Value Ref Range Status 11/04/2015 3.8 3.4 - 5.3 mmol/L Final Pharmacy calling for update. Advised will give 1 refill. Patient due for lab work. Will send letter. Deisy Elizabeth RN NEERING MODEL MAKER Telephone Encounter - Latia Edwards - 02/09/2017 2:47 PM CST Requested Prescriptions Pending Prescriptions Disp Refills ??? simvastatin (ZOCOR) 20 MG tablet 90 tablet 0 Last Written Prescription Date: 10/01/16 Last Fill Quantity: 90, # refills: 0 [place] [facility] prescribing provider: 01/21/2017 Future Office Visit: Sig: Take 1 tablet (20 mg) by mouth Statins Protocol Passed 02/09/2017 2:46 PM Passed - LDL on file in past 12 months Recent Labs Lab Test 10/19/16 0852 LDL 88 Passed - No abnormal creatine kinase in past 12 months No lab results found. Passed - Recent or future visit with authorizing provider Patient had office visit in the last year or has a visit in the next 30 days with authorizing provider. See chart review. Passed - Patient is age 18 or older Passed - No active on record Passed - No positive test in past 12 months ??? atenolol-chlorthalidone (TENORETIC) 50-25 MG per tablet 90 tablet 1 Last Written Prescription Date: 05/12/16 Last Fill Quantity: 90, # refills: 1 Last Office Visit with [facility] or [facility] prescribing provider: 01/21/2017 Future Office Visit: Sig: Take 1 tablet by mouth daily Beta-Blockers Protocol Passed 02/09/2017 2:46 PM Passed - Blood pressure under 140/90 BP Readings from Last 3 Encounters: 01/21/17 120/76 08/25/16 92/64 06/08/16 136/78 Passed - Patient is age 6 or older Passed - Recent or future visit with authorizing provider's specialty Patient had office visit in the last year or has a visit in the next 30 days with authorizing provider. See chart review. NEERING MODEL MAKER documented in this encounter Plan of Treatment Not on filedocumented as of this encounter Results (ABNORMAL) Comprehensive metabolic panel (03/02/2017 4:41 PM ENGINEERING MODEL MAKER) Analysis Performed At [facility] Time Signature Sodium 141 133 - 144 03/04/2017 [facility] mmol/L 10:55 AM [facility] Potassium 4.1 3.4 - 5.3 03/04/2017 [facility] mmol/L 10:55 AM [facility] Chloride 106 94 - 109 03/04/2017 [facility] mmol/L 10:55 AM [facility] Carbon Dioxide 27 20 - 32 03/04/2017 [facility] mmol/L 10:55 AM [facility] Anion Gap 8 3 - 14 03/04/2017 [facility] mmol/L 10:55 AM [facility] Glucose 90 70 - 99 03/04/2017 [facility] mg/dL 10:55 AM [facility] Urea Nitrogen 24 7 - 30 03/04/2017 [facility] mg/dL 10:55 AM [facility] Creatinine 0.98 0.52 - 03/04/2017 [facility] 1.04 mg/dL 10:55 AM [facility] GFR Estimate 59 (L) >60 03/04/2017 [facility] mL/min/1.7 10:55 AM [facility] [address] m2 [facility] Comment: Non GFR Calc GFR Estimate If 71 >60 mL/min/1.7m2 03/04/2017 10:[address] [facility] Black [facility] Comment: GFR Calc Calcium 8.7 8.5 - 10.1 03/04/2017 10:[address] [facility] mg/dL [facility] Bilirubin Total 0.3 0.2 - 1.3 mg/dL 03/04/2017 10:55 A [facility] Albumin 4.2 3.4 - 5.0 g/dL 03/04/2017 10:55 AM [facility] Protein Total 6.9 6.8 - 8.8 g/dL 03/04/2017 10:55 AM [facility] Alkaline Phosphatase 62 40 - 150 U/L 03/04/2017 10:55 AM [facility] ALT 35 0 - 50 U/L 03/04/2017 10:55 AM [facility] AST 27 0 - 45 U/L 03/04/2017 10:55 AM [facility] Specimen Anatomical Collection Method Collection Time Receive d Time (Source) Location / / Volume Laterality Blood specimen 03/02/2017 4:41 PM 018 4:43 (specimen) ENGINEERING MODEL MAKER PM ENGINEERING MODEL MAKER Kleber Ledesma PA-C LAB - BLOOD ORDERABLES Performing Organization Address City/State/ZIP Code Phon e Number [facility] [address] [place] [address] documented in this encounter Visit Diagnoses Diagnosis Mixed hyperlipidemia Essential hypertension with goal blood p ressure less than 140/90 documented in this encounter Care Teams Sign Writer Letterer Or Painter Relationship Specialty Start Date End Date Kleber Ledesma, PCP - General Physician Roller Die Cutting Machine Operator - 05/15/14 [facility] documented as of this encounter
--- OUTSIDE RECORDS SUMMARY | 2022-01-05 11:36 | XMS_ITS | Encounter Summary ---
:1960 Author Organization [place] Address [address] [place] [address]. [place] [address] Care Team Providers Name Role Phone Kleber Ledesma PA-C Primary Care Provider [phone] Encounter Details Date Type Department Care Team Description 05/12/2017 Orders Only [facility] Jose M Rees Hypokalem ia (Primary Clinic [place]) [id number] [address] [facility], [address] [place] [address] [place], [place] [phone] (Wo rk) [address] [phone] Social History Tobacco Use Types Packs/Day Years [...] as of this encounter Visit Diagnoses Diagnosis Hypokalemia - Primary Hypopotassemia documented in this encounter Care Teams Gate Cutter Relationship Specialty Start Date End Date Kleber Ledesma, PCP - General Physician Museum Guide - 05/15/14 [facility] documented as of this encounter
--- OUTSIDE RECORDS SUMMARY | 2022-01-05 11:36 | XMS_ITS | Encounter Summary ---
:1960 Author Organization [facility] Address [address] [place] [id number] Care Team Providers Name Role Phone Kleber Ledesma PA-C Primary Care Provider [phone] Kleber Ledesma PA-C Unavailable [phone] Kleber Ledesma PA-C Unavailable [phone] Reason for Referral Consultation - Closed Specialty Diagnoses / Procedures Referred By Contact Refer red To Contact Surgery Diagnoses Concussion without loss of consciousness, initial encounter Adjustment disorder with mixed anxiety and depressed mood Insomnia, unspecified type Memory difficulties Leif Alberto PA-C [facility] [address] [place] [phone] Phone: Fax: Referral ID Status Reason Start Date Expiration Date Visits Requ ested Visits Authorized [id number] Closed 09/30/2017 09/30/2018 1 1 Reason for Visit Reason Comments Head Injury concussion w/o loc. 8 - Slip fall hitting head on metal door frame. Consultation - Closed Specialty Diagnoses / Procedures Referred By Contact Refer red To Contact Surgery Diagnoses Concussion without loss of consciousness, initial encounter Adjustment disorder with mixed anxiety and depressed mood Insomnia, unspecified type Memory difficulties Leif Alberto PA-C [facility] [place] [phone] [place] [phone] Phone: Fax: Referral ID Status Reason Start Date Expiration Date Visits Requ ested Visits Authorized [id number] Closed 09/30/2017 09/30/2018 1 1 Encounter Details Date Type Department Care Team Description 09/30/2017 [facility] Visit [facility] OdetteBensonLeif Concussion without loss of c onsciousness, initial encounter (Primary Dx); [address] [facility] Tony PA-C Adjustment disorder with mix ed anxiety and depressed mood; [address] Floor Insomnia, unspecified type; [place], [place] Memory diffi culties [phone] Social History Tobacco Use Types Packs/Day [...] Sign Reading Time Taken Comments Blood Pressure 118/72 09/30/2017 7:54 AM CDT Pulse 62 09/30/2017 7:54 AM CDT Temperature - - Respiratory Rate - - Oxygen Saturation 98% 09/30/2017 7:54 AM CDT Inhaled Oxygen Concentration - - Weight 68 kg (150 lb) 09/30/2017 7:54 AM CDT Height 157.5 cm (5' 2) 09/30/2017 7:54 AM CDT Body Mass Index 27.44 09/30/2017 7:54 AM CDT documented in this encounter Patient Instructions Patient InstructionsOLeif Peacock PA-C - 09/30/2017 8:00 AM CDT ~ You WILL get better~ GENERAL ADVICE ~ Gradually work back to your usual activity. ~ Rest (eyes closed, dark room) as frequently as needed to help your symptoms go away. ~ Allow yourself more time for activities. ~ Write things down.?? At home, at work, whenever there is something that you should remember, even it is simple. HEADACHE ~ Take tylenol (1000 mg) three times a day as needed ~ Take ibuprofen (600 mg) three times a day as needed (take with food) FATIGUE ~ Daily exercise is strongly encouraged. Start with a 10 min walk and increase the time as tolerateduntil you are walking 30 minutes per day. ~ If you are tolerating the above well, increase the intensity- stationary bike, swimming, elliptical ANXIETY OR MOOD SWINGS: ~ If you are irritable or anxious, take a break in a quiet room. ~ Try using the free Calm lexis (see [employer] Lexis store or Google Play Store) for guided breathing and mindfulness/meditation. ~ Explore [place] Wi Max (https://www.Spectralmind) for free and easy-to-use meditation guidance. ? Diet: - In principle incorporate more protein, lots of veggies, some fruit, whole grains. - Little to no sweets, dairy, and processed carbs. - Mediterranean Diet is an zeye-ws-cbyzto example. ~ Drink plenty of water throughout the day (8-10 glasses per day) ~ Avoid alcohol and caffeine Helpful Supplements (usually with the vitamins at any pharmacy): - Tumeric 500mg twice daily - B-Complex vitamin once daily - Vitamin D, 2000 IU once daily - [place] 3 twice daily - particularly with higher DHA. - one brand is [place] Jym- 1 capsule twice daily. SLEEP ~ You need to sleep. ~ If your headaches are keeping you awake take your ibuprofen and tylenol right before bedtime. ~ Attempt for 8 hours of sleep a night. If you are having issues sleeping at night, avoid napping during the day. ~ Melatonin starting at 3mg tab 30-60 minutes before bed may be helpful. This is a substance your body makes naturally that signals it is time for sleep. Sleep hygiene means having good sleep habits. Follow the tips below to sleep better at night. ?? Get on a schedule. Go to bed and get up at about the same time every day. ?? Listen to your body. Only try to sleep when you actually feel tired or sleepy. ?? Be patient. If you haven't been able to get to sleep after about 20 minutes or more, get up and do something calming or boring until you feel sleepy. Then, return to bed and try again. ?? Avoid caffeine (coffee, tea, cola drinks, chocolate and some medicines) for at least 4 to 6 hoursbefore going to bed. We also suggest you don't use alcohol or nicotine (cigarettes) during this time. Both can make it harder for you to fall asleep and stay asleep. ?? Stop drinking water 2-3 hours before bed to avoid awakening to use the bathroom ?? Use your bed for sleeping only. That means no TV, computer or homework in bed! ?? Avoid screens in general 1-2 hours before bedtime. ?? Don't nap during the day. If you do nap, make sure it is for less than an hour and before 3 p.m. ?? Create sleep rituals that remind your body that it is time to sleep. Examples include breathing exercises, stretching, or reading a book. ?? Try a bath or shower before bed. Having a hot bath 1 to 2 hours before bedtime can help you feel sleepy. ?? Don't watch the clock. Checking the clock during the night can wake you up. It can also lead to negative thoughts such as I will never fall asleep. ?? Use a sleep diary. Track your sleep schedule to know your sleep patterns and to see where you canimprove. ?? Get regular exercise. But try not to do heavy exercise in the 4 hours before bedtime. ?? Eat a healthy, balanced diet. Try eating a light, healthy snack before bed, but avoid eating a heavy meal. ?? Create the right sleeping area. A cool, dark, quiet room is best. If needed, try earplugs, fans and blackout curtains. ?? Keep your daytime routine the same even if you have a bad night sleep. Avoiding activities the next day can make it harder to sleep. documented in this encounter Progress Notes Leif Alberto PA-C - 09/30/2017 8:00 AM CDT [facility] Admission September 30, 2017 Assessment: (S06.0X0A) Concussion without loss of consciousness, initial encounter (primary encounter diagnosis) (F43.23) Adjustment disorder with mixed anxiety and depressed mood (G47.00) Insomnia, unspecified type (R41.3) Memory difficulties Amie Scott is a 57 year old female who presents for evaluation of concussion without loss of consciousness which occurred on 09/01/2017 when she slipped and fell at work, striking her left head on the frame of metal fire door. She had a closed head injury with concussion about 1 year ago (05/2016), with a strike to the same side as with this episode. She had immediate local pain and headache, was helped up by others and continued with work. That evening she felt Tricia irritated and lightheaded but still plan to going to work. The next morning she felt worse and decided to present to her primarycare office for evaluation. She took 1-1/2 weeks off of work from there, then return back to half days. At her latest visit she was prescribed citalopram 10 mg daily. Amie's primary symptoms at this time are difficulty with memory and concentration as well as fatigue. With increased stress she is noting increased irritability and more difficulty coping with these feelings. She is often exhausted when she gets home. Driving is also quite stressful for her. 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 Headaches are dull, and episodic- improved from previously being constant. She frequently wakes up overnight, suspecting this may be related in part to the blood pressure medication she takes which includes a diuretic in which she takes at bedtime. Of note, she has substantial alcohol intolerance which is quite typical in the setting of concussion. Exam today was without substantial neck discomfort, visual findings, coordination, balance or vestibular findings. Cognitive screen was without any major red flags, though she did have some errors with serial subtraction. 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 We discussed the link between stress and anxiety with physical symptoms, and that it will be important to address both simultaneously in order to break this forward feeding cycle. Advised her to begin taking her blood pressure medication in morning to see if sleep improves overnight. We discussed that both poor sleep and impaired mood can both significantly impact concentration and memory. Much of the session involved teaching about concussion symptoms, triggers and ways to avoid them. I highly recommend she begin daily, light, low impact physical activity with a goal of reaching 20-30 minutes per day. We discussed sleep hygiene principles. We also discussed anti-inflammatory treatment i ncluding tumeric, B-Complex vitamin and dietary changes. I would like Amie to try advancing to working 6 hour shifts beginning 10/11/17, understanding that often there is some increase in symptoms thatfirst week but following this adjustment period she should begin to feel better. I would like to follow-up with her in 4 weeks to assess her progress and determine the need for further intervention. Plan: 1. Biggest concern of pt addressed: mood, cognition 2. Work restrictions- May return to work as of 09/30/17 with the following restrictions: a. Work- Up to 4 hrs 5 days a week b. Beginning 10/11/17 may work up to 6 hours, 5 days per week 3. Activity recommendations-Light, low impact aerobic activty up to 30 mins 4. Medications: a. Encouraged to start citalopram 5. Follow up here in 4 weeks. 6. Letters written today for: work AVS Instructions: ~ You WILL get better~ GENERAL ADVICE ~ Gradually work back to your usual activity. ~ Rest (eyes closed, dark room) as frequently as needed to help your symptoms go away. ~ Allow yourself more time for activities. ~ Write things down.?? At home, at work, whenever there is something that you should remember, even it is simple. HEADACHE ~ Take tylenol (1000 mg) three times a day as needed ~ Take ibuprofen (600 mg) three times a day as needed (take with food) FATIGUE ~ Daily exercise is strongly encouraged. Start with a 10 min walk and increase the time as tolerateduntil you are walking 30 minutes per day. ~ If you are tolerating the above well, increase the intensity- stationary bike, swimming, elliptical ANXIETY OR MOOD SWINGS: ~ If you are irritable or anxious, take a break in a quiet room. ~ Try using the free Calm lexis (see [employer] Lexis store or Google Play Store) for guided breathing and mindfulness/meditation. ~ Explore [place] Wi Max (https://www.Spectralmind) for free and easy-to-use meditation guidance. ? Diet: - In principle incorporate more protein, lots of veggies, some fruit, whole grains. - Little to no sweets, dairy, and processed carbs. - Mediterranean Diet is an oopl-qw-rvvxae example. ~ Drink plenty of water throughout the day (8-10 glasses per day) ~ Avoid alcohol and caffeine Helpful Supplements (usually with the vitamins at any pharmacy): - Tumeric 500mg twice daily - B-Complex vitamin once daily - Vitamin D, 2000 IU once daily - [place] 3 twice daily - particularly with higher DHA. - one brand is [place] Jym- 1 capsule twice daily. SLEEP ~ You need to sleep. ~ If your headaches are keeping you awake take your ibuprofen and tylenol right before bedtime. ~ Attempt for 8 hours of sleep a night. If you are having issues sleeping at night, avoid napping during the day. ~ Melatonin starting at 3mg tab 30-60 minutes before bed may be helpful. This is a substance your body makes naturally that signals it is time for sleep. Sleep hygiene means having good sleep habits. Follow the tips below to sleep better at night. ?? Get on a schedule. Go to bed and get up at about the same time every day. ?? Listen to your body. Only try to sleep when you actually feel tired or sleepy. ?? Be patient. If you haven't been able to get to sleep after about 20 minutes or more, get up and do something calming or boring until you feel sleepy. Then, return to bed and try again. ?? Avoid caffeine (coffee, tea, cola drinks, chocolate and some medicines) for at least 4 to 6 hoursbefore going to bed. We also suggest you don't use alcohol or nicotine (cigarettes) during this time. Both can make it harder for you to fall asleep and stay asleep. ?? Stop drinking water 2-3 hours before bed to avoid awakening to use the bathroom ?? Use your bed for sleeping only. That means no TV, computer or homework in bed! ?? Avoid screens in general 1-2 hours before bedtime. ?? Don't nap during the day. If you do nap, make sure it is for less than an hour and before 3 p.m. ?? Create sleep rituals that remind your body that it is time to sleep. Examples include breathing exercises, stretching, or reading a book. ?? Try a bath or shower before bed. Having a hot bath 1 to 2 hours before bedtime can help you feel sleepy. ?? Don't watch the clock. Checking the clock during the night can wake you up. It can also lead to negative thoughts such as I will never fall asleep. ?? Use a sleep diary. Track your sleep schedule to know your sleep patterns and to see where you canimprove. ?? Get regular exercise. But try not to do heavy exercise in the 4 hours before bedtime. ?? Eat a healthy, balanced diet. Try eating a light, healthy snack before bed, but avoid eating a heavy meal. ?? Create the right sleeping area. A cool, dark, quiet room is best. If needed, try earplugs, fans and blackout curtains. ?? Keep your daytime routine the same even if you have a bad night sleep. Avoiding activities the next day can make it harder to sleep. HPI Date of injury: 09/01/17 Mechanism: Slip/fall at work, strike to L head. Same side where closed head injury w/ concussion occurred ~1 year ago. Immediate Sx: local pain, headache. Helped up with others. That night felt irritated, LH. Planned togo into work, but next day felt worse, went to PCP. Took off work 1.5 weeks, then went back half days. No imaging to date for this issue. Prescribed citalopram, has not yet started. Tried an SSRI for menopause Sx previously, did not tolerate- dizzy for 2 days. Main Sx: Memory and fatigue. Exhausted when home. Irritated on more stressful days. Finds harder to cope sometimes Overall doing okay at work. Very difficult doing checkbook. Driving is tough- stresses her out. Worse around constructions Has been on 1/2 days for ~3 weeks Headaches are episodic, previously constant. Frequent waking overnight- common previously. Sometimes can't call asleep. Very rarely naps- but since this injury. Current Symptoms: CONCUSSION SYMPTOMS ASSESSMENT 09/30/2017 Headache or Pressure In Head 0 - none Upset Stomach or Throwing Up 0 - none Problems with Balance 0 - none Feeling Dizzy 0 - none Sensitivity to Light 1 - mild Sensitivity to Noise 1 - mild Mood Changes 0 - none Feeling sluggish, hazy, or foggy 1 - mild Trouble Concentrating, Lack of Focus 1 - mild Motion Sickness 0 - none Vision Changes 1 - mild Memory Problems 1 - mild Feeling Confused 0 - none Neck Pain 0 - none Trouble Sleeping 3 - moderate Total Number of Symptoms 7 Symptom Severity Score 9 Exertion: Symptoms worsen with: ?? Physical Activity?: no ?? Cognitive Activity?: no Current sleep patterns: Yes (see above) REVIEW OF SYSTEMS: Refer to DocFlowsheets: Concussion symptoms GASTROINTESTINAL: no N/V MUSCULOSKELETAL: no neck pn NEUROLOGIC: +GODDARD, no dizziness. No paresthesia or focal weakness PSYCHIATRIC: see PHQ-9 and GAD7 In response to the scores of the GAD7 and PHQ9 we have acknowledged and addressed both the anxiety and depression issues the patient is experiencing (see assessment and plan) Of note, the last questionon the PHQ9 done today is negative. PERTINENT PAST MEDICAL HISTORY Risk Factors for Protracted Recovery: ?? Prior concussion history: Yes, May 2016 ?? Longest symptom duration: unsure, better on own, missed perhaps 1-2 weeks, then 1-2 weeks 1/2 days. ?? Headache History: ?? Prior frequency of headache: infrequent ?? History of migraine: ?? Personal?: no ?? Family?: no ?? Mental health and developmental history: ?? Sleep issues ?? ? Menopause ?? ? Bedtime diuretic Past Medical History: Diagnosis Date ??? Chest [...] of right knee ??? Post concussive syndrome Pertinent social history: Currently using alcohol: casually- 1 glass of wine every other week. 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 Enjoys camping. Current medications: Reconciled in chart today by clinic staff and reviewed by me. Current Outpatient Prescriptions Medication ??? atenolol-chlorthalidone (TENORETIC) 50-25 MG per tablet ??? citalopram (CELEXA) 10 MG tablet ??? meloxicam (MOBIC) 7.5 MG tablet ??? simvastatin (ZOCOR) 20 MG tablet ??? aspirin 81 MG tablet ??? CALCIUM CARBONATE PO ??? Cholecalciferol (VITAMIN D3 PO) ??? Coenzyme Q10 (CO Q 10 PO) ??? FOLIC ACID PO ??? Ginkgo Biloba 40 MG TABS ??? Multiple Vitamins-Minerals (OCUVITE PO) ??? [place]-3 Fatty Acids (OMEGA-3 FISH OIL PO) ??? vitamin E (VITAMIN E) 200 UNIT capsule No current facility-administered medications for this visit. OBJECTIVE: BP 118/72 Pulse 62 Ht 5' 2 Wt 150 lb LMP 02/22/2010 SpO2 98% BMI 27.44 kg/m2 Wt Readings from Last 4 Encounters: 09/30/17 150 lb 09/27/17 153 lb 09/20/17 151 lb 4.8 oz 09/13/17 149 lb EXAM: GENERAL: alert, oriented to person, place, time HEAD: NC/AT NECK: Supple, FROM. Minimal TTP to R paracervical mm. PSYCHIATRIC: Irritable mood, depressed affect. No SI. Normal speech and thought process. Some early word-finding issues that resolved by end of visit. Neuro: Strength: Shoulder shrug (C5):5/5 Bicep (C6):5/5 Tricep (C7):5/5 Visual: FRANNY: yes Light sensitive: yes EOMI: yes Nystagmus: no Convergence testing: Normal (</= 6 cm) Coordination: Finger to Nose: normal Rapid Alternating Movements: normal Balance Testing: Romberg: normal Gait: Walk in hallway at normal speed: Able Walk in hallway and turn head side to side when asked: Able Cognitive: Immediate object recall: 4/4 Recall 4 objects at 5 minutes: 2/4 Reverse months of the year: 01/19 Spell world backwards: yes Backwards number [id number] Time spent in one-on-one evaluation and discussion with patient regarding nature of problem, course,prior treatments, and therapeutic options; >50% of this 65 minute visit was spent in counseling, including this patient's personal symptom triggers and education thereof. Answers for HPI/ROS submitted by the patient on 09/30/2017 If you checked off any problems, how difficult have these problems made it for you to do your work, take care of things at home, or get along with other people?: Somewhat difficult PHQ9 TOTAL SCORE: 11 MORENA 7 TOTAL SCORE: 7 documented in this encounter Nursing Notes Ashley Elizabeth LPN - 09/30/2017 8:00 AM CDT Chief Complaint Patient presents with ??? Head Injury concussion w/o loc. 09/01/2017 - Slip fall hitting head on metal door frame. Vitals: 09/30/17 0754 BP: 118/72 Pulse: 62 SpO2: 98% Weight: 68 kg (150 lb) Height: 1.575 m (5' 2) Body mass index is 27.44 kg/(m^2). CONCUSSION SYMPTOMS ASSESSMENT 09/30/2017 Headache or Pressure In Head 0 - none Upset Stomach or Throwing Up 0 - none Problems with Balance 0 - none Feeling Dizzy 0 - none Sensitivity to Light 1 - mild Sensitivity to Noise 1 - mild Mood Changes 0 - none Feeling sluggish, hazy, or foggy 1 - mild Trouble Concentrating, Lack of Focus 1 - mild Motion Sickness 0 - none Vision Changes 1 - mild Memory Problems 1 - mild Feeling Confused 0 - none Neck Pain 0 - none Trouble Sleeping 3 - moderate Total Number of Symptoms 7 Symptom Severity Score 9 PHQ-9 SCORE 09/27/2017 09/30/2017 Total Score MyChart - 11 (Moderate depression) Total Score 15 11 MORENA-7 SCORE 09/27/2017 09/30/2017 Total Score - 7 (mild anxiety) Total Score 10 7 documented in this encounter Plan of Treatment Scheduled Referrals Name Type Priority Associated Diagnoses Order S chedule 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 Referral Routine Concussion without l oss Ordered: 09/30/2017 REFERRAL of consciousness, initial encounte r Adjustment disorder with mixed anxiety and depressed mood Insomnia, unspecified type Memory difficulties documented as of this encounter Visit Diagnoses Diagnosis Concussion without loss of consciousness , initial encounter - Primary Adjustment disorder with mixed anxiety a nd depressed mood Insomnia, unspecified type Memory difficulties Memory loss documented in this encounter Additional Health Concerns Assessment Noted Time PHQ-9 Depression Total Score: 11 10/01/2017 7:03 AM CD T documented as of this encounter Care Teams Dehydration Unit Operator Relationship Specialty Start Date End Date Kleber Ledesma, PCP - General Physician Automatic Pad Making Machine Operator - 05/15/14 P[facility] Kleber Ledesma, PCP - Assigned PCP 09/19/17 04/12/18 PA-C [id number] [address] [id number] Kleber Ledesma, Assigned PCP 09/19/17 CINTHYAC [id number] [address]ES [id number] documented as of this encounter
--- OUTSIDE RECORDS SUMMARY | 2022-01-05 11:36 | XMS_ITS | Encounter Summary ---
:1960 Author Organization [facility] Address [address] [place] [address]. [place] [address] Care Team Providers Name Role Phone Kleber Ledesma PA-C Primary Care Provider [phone] Reason for Referral Diagnostic Imaging XR - Closed Specialty Diagnoses / Procedures Referred By Contact Refer red To Contact Diagnoses Cough Millicent Rivera MD Procedures XR Chest 2 Views [address] [place], [place] [address] Referral ID Status Reason Start Date Expiration Date Visits Requ ested Visits Authorized [id number] Closed 02/12/2017 02/12/2018 1 1 APIST OCCUPATIONAL Reason for Visit Reason Comments Cough wheezing, chills, sweats Encounter Details Date Type Department Care Team Description 02/12/[address] [facility] Millicent Rivera MD Acute pharyngitis, unspecified etiology (Primary Dx); Clinic [place] [address] [facility] [place] [address] [place] [id number] Social History Tobacco Use Types Packs/Day Years [...] Sign Reading Time Taken Comments Blood Pressure 111/71 02/12/2017 2:23 PM THERAPIST OCCUPATIONAL Pulse 81 02/12/2017 2:23 PM THERAPIST OCCUPATIONAL Temperature 36.7 ??C (98.1 ??F) 02/12/2017 2:23 PM THERAPIST OCCUPATIONAL Respiratory Rate 20 02/12/2017 2:23 PM THERAPIST OCCUPATIONAL Oxygen Saturation 99% 02/12/2017 2:23 PM THERAPIST OCCUPATIONAL Inhaled Oxygen Concentration - - Weight 68 kg (150 lb) 02/12/2017 2:23 PM THERAPIST OCCUPATIONAL Height 157.5 cm (5' 2) 02/12/2017 2:23 PM THERAPIST OCCUPATIONAL Body Mass Index 27.44 02/12/2017 2:23 PM THERAPIST OCCUPATIONAL documented in this encounter Progress Notes Millicent Rivera MD - 02/12/2017 2:15 PM CST SUBJECTIVE: Amie Scott is a 56 year old female who presents to clinic today for the following health issues: Acute Illness Acute illness concerns: cough Onset: this is a f/u ?? Fever: YES ?? Chills/Sweats: YES ?? Headache (location?): YES ?? Sinus Pressure:no ?? Conjunctivitis: no ?? Ear Pain: no ?? Rhinorrhea: no ?? Congestion: no ?? Sore Throat: YES ?? Cough: [id number] ?? Wheeze: YES ?? Decreased Appetite: no ?? Nausea: YES ?? Vomiting: no ?? Diarrhea: no ?? Dysuria/Freq.: no ?? Fatigue/Achiness: YES ?? Sick/Strep Exposure: no Therapies Tried and outcome: tylenol and motrin alternate. Pt also was started on doxycycline with some improvement, but her symptoms started to get worse in the last 2 days with high fever, fatigue,sore throat and worsening of cough.. Problem list and histories reviewed & adjusted, as indicated. Additional history: as documented Patient Active Problem List Diagnosis ??? CARDIOVASCULAR SCREENING; LDL GOAL LESS THAN 160 ? ? Hypertension goal BP (blood pressure) < 140/90 ??? CARDIOVASCULAR SCREENING; LDL GOAL LESS THAN 130 ??? Family history of ischemic heart disease ??? Cataract ??? ACP (advance care planning) ??? Chest discomfort Past Surgical History: Procedure Laterality Date ??? C NONSPECIFIC PROCEDURE laparoscopy by IT SUPPORT CONSULTANT ??? CHOLECYSTECTOMY ??? COLONOSCOPY 12/31/2014 Dr. Urbano [facility] ??? COLONOSCOPY N/A 12/31/2014 Procedure: COLONOSCOPY; Surgeon: Adrianne Urbano MD; Location: [facility] ??? HOUSING LIAISON SURGERY age 21 yrs.laporoscopy Social History Substance Use Topics ??? Smoking status: Former Smoker ??? Smokeless tobacco: Never Used Comment: quit smoking at 21 yrs old. smoked 2 to 21/2 ppd ??? Alcohol use 1.2 oz/week 1 Glasses of wine, 1 Shots of liquor per week Comment: socially Family History Problem Relation Age of Onset ??? Allergies Brother ??? C.A.D. Brother ??? HEART DISEASE Brother ??? DIABETES Brother ??? Aneurysm Brother ??? Myocardial Infarction Father ??? Coronary Artery Disease Father ??? Myocardial Infarction Brother ??? C.A.D. Brother ??? Myocardial Infarction Sister ??? Ovarian Cancer Sister ??? Other Cancer Sister ??? Breast Cancer Sister ??? Neurologic Disorder Sister MS ??? Macular Degeneration Mother ??? Colon Cancer Maternal Grandmother 70 Current Outpatient Prescriptions Medication Sig Dispense Refill ??? amoxicillin-clavulanate (AUGMENTIN) 875-125 MG per tablet Take 1 tablet by mouth 2 times daily 20 tablet 0 ??? simvastatin (ZOCOR) 20 MG tablet TAKE ONE TABLET BY MOUTH AT BEDTIME 90 tablet 2 ??? atenolol-chlorthalidone (TENORETIC) 50-25 MG per tablet Take 1 tablet by mouth daily 90 tablet 0 ??? ondansetron (ZOFRAN) 8 MG tablet Take 1 tablet (8 mg) by mouth every 8 hours as needed for nausea 20 tablet 1 ??? vitamin E (VITAMIN E) 200 UNIT capsule Take 400 Units by mouth daily ??? FOLIC ACID PO Take 1 mg by mouth daily ??? aspirin 81 MG tablet Take 81 mg by mouth daily ??? Cholecalciferol (VITAMIN D3 PO) Take 2,000 Units by mouth daily ??? [place]-3 Fatty Acids (OMEGA-3 FISH OIL PO) Take 2.4 g by mouth daily ??? Coenzyme Q10 (CO Q 10 PO) Take 100 mg by mouth 2 times daily ??? Ginkgo Biloba 40 MG TABS Take 120 mg by mouth daily ??? Multiple Vitamins-Minerals (OCUVITE PO) Take 1 tablet by mouth daily ??? CALCIUM CARBONATE PO Take 2,400 mg by mouth daily Reviewed and updated as needed this visit by clinical staffTobacco Allergies Meds Med Hx Surg Hx Fam Hx Soc Hx Reviewed and updated as needed this visit by Provider ROS: CONSTITUTIONAL:fever, chills. CV: NEGATIVE for chest pain, palpitations or peripheral edema OBJECTIVE: BP 111/71 (BP Location: Right arm, Patient Position: Chair, Cuff Size: Adult Large) Pulse 81 Temp 98.1 ??F (36.7 ??C) (Oral) Resp 20 Ht 5' 2 (1.575 m) Wt 150 lb (68 kg) LMP 02/22/2010 SpO2 99% BMI 27.44 kg/m2 Body mass index is 27.44 kg/(m^2). Head: Normocephalic, atraumatic. Eyes: Conjunctiva clear, non icteric. PERRLA. Ears: External ears nl, TM is nl Nose: Septum midline, nasal mucosa congested. No discharge. There is no tenderness over the maxillary sinuses, there is no tenderness over the frontal sinuses Mouth / Throat: Normal dentition. No oral lesions. Pharynx moderate erythematous, tonsils Rt is swollen with exudate/hypertrophy. Also mild soft palate swelling on the Rt side. Neck: Supple, no enlarged LN, trachea midline. LUNGS: CTA B/L, no wheezing or crackles. CVS : RRR, no murmur, no rub. ASSESSMENT/PLAN: 1. Acute pharyngitis, unspecified etiology With swelling on the Rt side worse than Lt, I will start on abx - amoxicillin-clavulanate (AUGMENTIN) 875-125 MG per tablet; Take 1 tablet by mouth 2 times daily Dispense: 20 tablet; Refill: 0 And keep close monitoring, if any worsening of her symptoms, pt to go to ER R/O abscess formation 2. Cough Chest xray showed no pneumonia, await for the official results. - XR Chest 2 Views; Future Continue on supportive management, Follow up in 5 days if symptoms persist, sooner if symptoms worsen or new ones develops, pt may contact us over the phone for any questions or concerns. Millicent Rivera MD [facility] APIST OCCUPATIONAL documented in this encounter Plan of Treatment Not on filedocumented as of this encounter Results XR Chest 2 Views (02/12/2017 2:45 PM THERAPIST OCCUPATIONAL) Anatomical Region Laterality Modality Chest Computed Radiography Specimen (Source) Anatomical Location Collection Method / Collectio n Time Received Time / Laterality Volume Impressions 02/12/2017 4:22 PM THERAPIST OCCUPATIONAL IMPRESSION: Since January 28, 2016, heart size remains normal. No pleural effusion, pneumothorax, or abnor mal area of consolidation. Minimal scoliotic curvature of the thora columbar spine, apex left. Cholecystectomy clips. PHILLIP NICHOLSON MD Narrative 02/12/2017 4:22 PM THERAPIST OCCUPATIONAL CHEST TWO VIEWS ??02/12/2017 2:45 PM HISTORY: 57-year-old with history of cou gh. Procedure Note Phillip Nicholson MD - 02/12/2017 CHEST TWO VIEWS 02/12/2017 2:45 PM HISTORY: 57-year-old with history of cou gh. IMPRESSION: Since January 28, 2016, hea rt size remains normal. No pleural effusion, pneumothorax, or abnor mal area of consolidation. Minimal scoliotic curvature of the thora columbar spine, apex left. Cholecystectomy clips. PHILLIP NICHOLSON MD Millicent Rivera MD IMG DIAGNOSTIC IMAGING ORDER PB documented in this encounter Visit Diagnoses Diagnosis Acute pharyngitis, unspecified etiology - Primary Cough Cough documented in this encounter Care Teams Theatrical Scenic Designer Relationship Specialty Start Date End Date Kleber Ledesma, PCP - General Physician Pattern Developer - 05/15/14 PA-C Medical documented as of this encounter
--- OUTSIDE RECORDS SUMMARY | 2022-01-05 11:36 | XMS_ITS | Encounter Summary ---
:1960 Author Organization [facility] Address [address] [place] [address]. [place] [address] Care Team Providers Name Role Phone Kleber Ng PA-C Primary Care Provider [phone] Reason for Visit Reason Comments Toenail right great toenail is disco lored; started throbbing 2 nights ago Encounter Details Date Type Department Care Team Description 03/02/2017 Office Visit [facility] Jose M Rees Onychomyc osis (Primary Dx); [facility] [place] [facility] [place] Onycholysis due to Pseudomonas infection ; [place] [address] Mixed hyperlipidemia; Road, [address] [place], [place] Essential hypertension with goal blood pressure less than 140/90 [place], [place] [id number] Social History Tobacco Use Types Packs/Day [...] Sign Reading Time Taken Comments Blood Pressure 130/72 03/02/2017 4:02 PM CEMETERY WORKER Pulse 80 03/02/2017 4:02 PM CEMETERY WORKER Temperature 36.7 ??C (98 ??F) 03/02/2017 4:02 PM CEMETERY WORKER Respiratory Rate 12 03/02/2017 4:02 PM CEMETERY WORKER Oxygen Saturation 97% 03/02/2017 4:02 PM CEMETERY WORKER Inhaled Oxygen Concentration - - Weight 69.1 kg (152 lb 4.8 oz) 03/02/2017 4:02 PM CEMETERY WORKER Height - - Body Mass Index 27.86 02/12/2017 2:23 PM CEMETERY WORKER documented in this encounter Progress Notes Jose M Rees MD - 03/02/2017 4:00 PM CST HPI SUBJECTIVE: Amie Scott is a 57 year old female who presents to clinic today for the following health issues: Concern - Right great toenail is discolored Onset: several months; might have been longer but has been wearing lao on her toenails and was unseen ?? Description: Discoloration of toenail ?? Intensity: mild ?? Progression of Symptoms: worsening ?? Accompanying Signs & Symptoms: Started throbbing 2 nights ago and has become more sensitive; texture of toenail is different. ?? Previous history of similar problem: None ?? Precipitating factors: Worsened by: None ?? Alleviating factors: Improved by: Amoxicillin (was taking for a different reason) Therapies Tried and outcome: None Recently had sinus infection that required two different abtibiotics to fully treat, felt this helped it. Has been present for at least two months, but typically wears nail lao and could have been longer. Notes that it was subltly painful several night ago. No injury that she can recall. No change in activity. No other nails affected. Review of Systems Constitutional: Negative. Musculoskeletal: Negative for joint pain. Skin: Nail change. Physical Exam Constitutional: She is oriented to person, place, and time and well-developed, well-nourished, and in no distress. Neurological: She is alert and oriented to person, place, and time. Skin: Skin is warm and dry. Lysis of R great toenail extending about 3/4 of the nail bed. Thickening, yellow discoloration of nail, with dark blue/blackinsh discoloration on underside of nail. Vitals reviewed. (B35.1) Onychomycosis (primary encounter diagnosis) Comment: advised on warning signs for liver inflammation d/t terbinafine Plan: terbinafine (LAMISIL) 250 MG tablet (L60.1, B96.5) Onycholysis due to Pseudomonas infection Comment: Plan: nail removed over lytic portion, extending approx 75% of nail bed. Avise bleach water soaks (1T per gallon water) nightly. RTC in 1w prn Jose M Rees MD TERY WORKER documented in this encounter Nursing Notes Liz Wooten CMA - 03/02/2017 4:00 PM CST Chief Complaint Patient presents with ??? Toenail right great toenail is discolored; started throbbing 2 nights ago Initial BP 130/72 Pulse 80 Temp 98 ??F (36.7 ??C) (Oral) Resp 12 Wt 152 lb 4.8 oz (69.1 kg) LMP 02/22/2010 SpO2 97% ? No BMI 27.86 kg/m2 Estimated body mass index is 27.86 kg/(m^2) as calculated from the following: Height as of 18: 5' 2 (1.575 m). Weight as of this encounter: 152 lb 4.8 oz (69.1 kg). Medication Reconciliation: complete Liz Wooten CMA (AAMA) TERY WORKER documented in this encounter Miscellaneous Notes Addendum Note - Kleber Ng PA-C - 03/08/2017 1:48 PM CEMETERY WORKER Addended by: KLEBER NG on: 03/08/2017 01:48 PM Modules accepted: Orders TERY WORKER documented in this encounter Plan of Treatment Not on filedocumented as of this encounter Procedures Procedure Name Priority Date/Time Associated Diagnosis Comme nts COMPREHENSIVE Routine 03/02/2017 4:41 Mixed hyperlipid emia Results for this METABOLIC PANEL PM CEMETERY WORKER Essential procedure ar e in hypertension with the result s goal blood pressure section. less than 140/90 documented in this encounter Results (ABNORMAL) Comprehensive metabolic panel (03/02/2017 4:41 PM CEMETERY WORKER) Analysis Performed At Patho logis Time Signature Sodium 141 133 - 144 03/04/2017 [facility] mmol/L 10:55 AM [facility] Potassium 4.1 3.4 - 5.3 03/04/2017 [facility] mmol/L 10:55 AM [facility] Chloride 106 94 - 109 03/04/2017 [facility] mmol/L 10:55 AM [facility] Carbon Dioxide 27 20 - 32 03/04/2017 [facility] mmol/L 10:55 AM [facility] Anion Gap 8 3 - 14 03/04/2017 [facility] mmol/L 10:55 AM [facility] Glucose 90 70 - 99 03/04/2017 [facility] mg/dL 10:55 AM [facility] Urea Nitrogen 24 7 - 30 03/04/2017 [facility] mg/dL 10:55 AM [facility] Creatinine 0.98 0.52 - 03/04/2017 [place] 1.04 mg/dL 10:55 AM [facility] GFR Estimate 59 (L) >60 03/04/2017 [place] mL/min/1.7 10:[address] Comment: Non GFR Calc GFR Estimate If 71 >60 mL/min/1.7m2 03/04/2017 10:55 AM [facility] Black [facility] Comment: GFR Calc Calcium 8.7 8.5 - 10.1 03/04/2017 10:55 AM [facility] mg/dL [facility] Bilirubin Total 0.3 0.2 - 1.3 mg/dL 03/04/2017 10:55 A M [facility] Albumin 4.2 3.4 - 5.0 g/dL 03/04/2017 10:55 AM [facility] Protein Total 6.9 6.8 - 8.8 g/dL 03/04/2017 10:55 AM [facility] Alkaline Phosphatase 62 40 - 150 U/L 03/04/2017 10:55 AM [facility] ALT 35 0 - 50 U/L 03/04/2017 10:55 AM [facility] AST 27 0 - 45 U/L 03/04/2017 10:55 AM [facility] CEMETERY WORKER [place] Specimen Anatomical Collection Method Collection Time Receive d Time (Source) Location / / Volume Laterality Blood specimen 03/02/2017 4:41 PM 018 4:43 (specimen) CEMETERY WORKER PM CEMETERY WORKER Kleber Ng PA-C LAB - BLOOD ORDERABLES Performing Organization Address City/State/ZIP Code Phon e Number [facility] [place] [address] [place] [address] documented in this encounter Visit Diagnoses Diagnosis Onychomycosis - Primary Dermatophytosis of nail Onycholysis due to Pseudomonas infection Other specified disease of nail Mixed hyperlipidemia Essential hypertension with goal blood p ressure less than 140/90 documented in this encounter Care Teams Hotel Controller Relationship Specialty Start Date End Date Kleber Ng, PCP - General Physician Commissary Clerk - 05/15/14 [facility] Medical documented as of this encounter
--- OUTSIDE RECORDS SUMMARY | 2022-01-05 11:36 | XMS_ITS | Encounter Summary ---
:1960 Author Organization [facility] Address [address] [place] [address] Care Team Providers Name Role Phone Kleber Ledesma PA-C Primary Care Provider [phone] Reason for Visit Reason Comments Allied Health Visit ear wash Encounter Details Date Type Department Care Team Description 09/21/2016 Allied Health/Nurse Health [facility] All ied Health Visit Visit Clinic [facility] (ear wash) [address] [facility], [address] [place] [address] Social History Tobacco Use Types Packs/Day Years Used Date Smoking Tobacco: Former Smokeless Tobacco: Never Comments: quit smoking at 21 yrs old. sm oked 2 to 21/2 ppd Alcohol Use Standard Drinks/Week Comments Yes 2 (1 standard drink = 0.6 oz pure alcoho l) Sex Assigned at Date Recorded Not on file documented as of this encounter Nursing Notes Gabrielle Garcia MA - 09/21/2016 2:00 PM CDT Amie Scott is a 56 year old female who presents today for Ear Wash. with the complaint of fullness and wax. Ear exam showing wax occlusion in the right ear. The patients ear(s) were irrigated using a elephantwith mild amount of wax extracted. Patient tolerated procedure well. Patient instructed to irrigate ears with warm water daily. Outcome: small amount of ear wax irrigated from right ear. Checked by DEWAYNE Mortensen. Gabrielle Garcia MA documented in this encounter Plan of Treatment Not on filedocumented as of this encounter Procedures Procedure Name Priority Date/Time Associated Diagnosis Comme nts HC REMOVE IMPACTED Routine 09/21/2016 2:16 PM CDT Impacted cer umen of CERUMEN right ear documented in this encounter Visit Diagnoses Diagnosis Impacted cerumen of right ear - Primary Impacted cerumen documented in this encounter Care Teams Clinical Microbiologist Relationship Specialty Start Date End Date Kleber Ledesma, PCP - General Physician Strip Cutter - 05/15/14 PA-C Medical documented as of this encounter
--- OUTSIDE RECORDS SUMMARY | 2022-01-05 11:36 | XMS_ITS | Encounter Summary ---
:1960 Author Organization [facility] Address [address] [place] [address] Care Team Providers Name Role Phone Kleber Ledesma PA-C Primary Care Provider [phone] Reason for Referral Diagnostic Imaging XR - Closed Specialty Diagnoses / Procedures Referred By Contact Refer red To Contact Diagnoses Primary osteoarthritis of right knee Francesca Machado, Procedures XR Knee Right 3 Views XR Knee Standing Right 2 Views [place] [address] [place] [address] Referral ID Status Reason Start Date Expiration Date Visits Requ ested Visits Authorized [id number] Closed 07/21/2017 07/21/2018 1 1 Reason for Visit Reason Comments Knee Pain Encounter Details Date Type Department Care Team Description 07/21/2017 Office Visit [facility] Francesca Machado Primary [facility] Thomas Yang PA-C of right knee (Primary [place] [address] [address] ) [facility], [address] [place] [address] [phone] Social History Tobacco Use Types Packs/Day Years [...] Sign Reading Time Taken Comments Blood Pressure 110/70 07/21/2017 3:37 PM CDT Pulse 70 07/21/2017 3:37 PM CDT Temperature 36.7 ??C (98.1 ??F) 07/21/2017 3:37 PM CDT Respiratory Rate 14 07/21/2017 3:37 PM CDT Oxygen Saturation - - Inhaled Oxygen Concentration - - Weight 67.6 kg (149 lb 1.6 oz) 07/21/2017 3:37 PM CDT Height 157.5 cm (5' 2) 07/21/2017 3:37 PM CDT Body Mass Index 27.27 07/21/2017 3:37 PM CDT documented in this encounter Patient Instructions Patient InstructionsFrancesca Machado PA-C - 07/21/2017 3:40 PM CDT Images from the original note were not included. [address], [place] [address] Open 8a-5p Mon-Fri What Is Osteoarthritis? There are about 100 different types of arthritis. In general, arthritis means problems with the joints. A joint is a point in the body where two or more bones come together. Arthritis may also cause problems in the tissue near the joints, including muscles, tendons, and ligaments. And, in some types of arthritis, the entire body can be affected. Osteoarthritis (OA) is sometimes called degenerative joint disease, or jtpb-uos-mkby arthritis. It'sthe most common type of arthritis. In OA, the cartilage wears away. Cartilage is a slick tissue thatcovers the ends of the bones. It acts as a cushion and allows them to glide smoothly against each oth er. When the cartilage wears away, bone rubs against bone. This causes pain, swelling, stiffness, and difficulty moving. Risk factors for developing OA include obesity, being older than 40, past joint trauma, repetitive joint use, and a family history of OA. Normal knee Knee with arthritis Symptoms OA can affect any joint. Weight-bearing joints, such as the hips and knees, are often affected. Common??symptoms are joint pain and stiffness. Pain and stiffness may get worse with periods of inactivity or overuse. For example, you may have??more stiffness first thing in the morning, usually for less than 30 minutes. Or you may have stiffness after sitting for a long period of time. This might be while sitting at a movie. You may also have more pain in your hips or knees if you walk??farther than you usually do. Other common symptoms are: ?? Weak muscles ?? Unstable??or wobbly joints ?? Grinding or crackling noises with motion ?? Joints with swelling or bumps ?? Loss of range of motion, or the ability to bend and straighten them If you have any of these joint changes, make an appointment to see your healthcare provider. The twoof you can work together to create a treatment plan that??may help lessen your pain and stiffness and prevent symptoms from getting worse. Date Last Reviewed: 03/24/2015 ?? [phone] [employer]. [address] [place] [address]. All rights reserved. This information is not intended as a substitute for professional medical care. Always follow your healthcare professional's instructions. documented in this encounter Progress Notes Francesca Machado PA-C - 07/21/2017 3:40 PM CDT Images from the original note were not included. HPI SUBJECTIVE: Amie Scott is a 57 year old female who presents to clinic today for the following health issues: Joint Pain ?? Onset: yesterday ?? Description: Location: right knee Character: Dull ache ?? Intensity: mild, moderate ?? Progression of Symptoms: worse ?? Accompanying Signs & Symptoms: Other symptoms: none ?? History: Previous similar pain: no ?? 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 Alleviating factors: Improved by: nothing Therapies Tried and outcome: none Notes in the past occasionally her knee feels like it's going to pop, but no hx of pain or giving out. Pain worse when going up the stairs. Chart Review: No flowsheet data found. No flowsheet data found. Patient Active Problem List Diagnosis ??? CARDIOVASCULAR SCREENING; LDL GOAL LESS THAN 160 ? ? Hypertension goal BP (blood pressure) < 140/90 ??? CARDIOVASCULAR SCREENING; LDL GOAL LESS THAN 130 ??? Family history of ischemic heart disease ??? Cataract ??? ACP (advance care planning) ??? Chest discomfort ??? Primary osteoarthritis of right knee Past Surgical History: Procedure Laterality Date ??? C NONSPECIFIC PROCEDURE laparoscopy by DINING CAR CONDUCTOR ??? CHOLECYSTECTOMY ??? COLONOSCOPY 12/31/2014 Dr. Urbano [facility] ??? COLONOSCOPY N/A 12/31/2014 Procedure: COLONOSCOPY; Surgeon: Adrianne Urbano MD; Location: [facility] ??? 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 Colon Cancer Maternal Grandmother 70 Social History Substance Use Topics ??? Smoking status: Former Smoker ??? Smokeless tobacco: Never Used Comment: quit smoking at 21 yrs old. smoked 2 to 21/2 ppd ??? Alcohol use 1.2 oz/week 1 Glasses of wine, 1 Shots of liquor per week Comment: socially Problem list, Medication list, Allergies, Medical/Social/Surg hx reviewed in [facility], updated as appropriate. Review of Systems Constitutional: Negative for chills and fever. Respiratory: Negative for shortness of breath. Cardiovascular: Negative for chest pain. Gastrointestinal: Negative for abdominal pain, diarrhea, nausea and vomiting. Musculoskeletal: Positive for joint pain. Skin: Negative for rash. Neurological: Negative for focal weakness and headaches. All other systems reviewed and are negative. Physical Exam Constitutional: She is oriented to person, place, and time and well-developed, well-nourished, and in no distress. Cardiovascular: Pulses: Dorsalis pedis pulses are 2+ on the right side Musculoskeletal: Right knee: She exhibits normal range of motion and no swelling. Tenderness found. Legs: No bruising, warmth, or erythema. Extensor mechanism intact Neurological: She is oriented to person, place, and time. Skin: Skin is warm. No bruising noted. No erythema. Nursing note and vitals reviewed. Vital Signs BP 110/70 (BP Location: Right arm, Patient Position: Chair, Cuff Size: Adult Large) Pulse 70 Temp 98.1 ??F (36.7 ??C) (Oral) Resp 14 Ht 5' 2 (1.575 m) Wt 149 lb 1.6 oz (67.6 kg) LMP 02/22/2010 ? No BMI 27.27 kg/m2 Body mass index is 27.27 kg/(m^2). Diagnostic Test Results: Xray knee - medial joint space narrowing per my read ASSESSMENT/PLAN: ICD-10-CM 1. 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 Rx Mobic also. Try ice for acute flares. F/u with PCP if no improvement. I have discussed any lab or imaging results, the patient's diagnosis, and my plan of treatment with the patient and/or family. Patient is aware to come back in if with worsening symptoms or if no relief despite treatment plan. Patient voiced understanding and had no further questions. Follow Up: Data Unavailable JEREMY Garner PA-C [facility] documented in this encounter Nursing Notes Ann Nicolas - 07/21/2017 3:40 PM CDT Chief Complaint Patient presents with ??? Knee Pain Initial BP 110/70 (BP Location: Right arm, Patient Position: Chair, Cuff Size: Adult Large) Pulse 70 Temp 98.1 ??F (36.7 ??C) (Oral) Resp 14 Ht 5' 2 (1.575 m) Wt 149 lb 1.6 oz (67.6 kg) LMP 02/22/2010 ? No BMI 27.27 kg/m2 Estimated body mass index is 27.27 kg/(m^2) as calculated from the following: Height as of this encounter: 5' 2 (1.575 m). Weight as of this encounter: 149 lb 1.6 oz (67.6 kg). Medication Reconciliation: complete Health Maintenance addressed: NONE N/a HOSEA Knowles documented in this encounter Plan of Treatment [...] ERABLES documented in this encounter Visit Diagnoses Diagnosis Primary osteoarthritis of right knee - P rimary Primary localized osteoarthrosis, lower leg documented in this encounter Care Teams Transport Tech Relationship Specialty Start Date End Date Kleber Ledesma, PCP - General Physician Testing Specialist - 05/15/14 [facility] documented as of this encounter
--- OUTSIDE RECORDS SUMMARY | 2022-01-05 11:36 | XMS_ITS | Encounter Summary ---
:1960 Author Organization [facility] Address [address] [place] [address]. [place] [address] Care Team Providers Name Role Phone Kleber Ledesma PA-C Primary Care Provider [phone] Reason for Visit Reason Onset Date Comments Concussion 06/02/2016 Follow up Encounter Details Date Type Department Care Team Description 06/02/2016 [facility]phone [facility] [place] RACHNA Valderrama [address] [place] [address] [address] [place] [address] [place], [place] [phone] (Wo rk) [address] [phone] Social History Tobacco Use Types Packs/Day Years Used Date Smoking Tobacco: Former Smokeless Tobacco: Never Comments: quit smoking at 21 yrs old. sm oked 2 to 21/2 ppd Alcohol Use Standard Drinks/Week Comments Yes 2 (1 standard drink = 0.6 oz pure alcoho l) Sex Assigned at Date Recorded Not on file documented as of this encounter Miscellaneous Notes Telephone Encounter - Cherrie Mcknight - 06/02/2016 1:43 PM CDT Spoke with pt informed that Letter is at front end specialist ready and for nut picker, appointment scheduled for06/08 with Kleber Ledesma. Kishan Mcknight Partner Marketing Manager 06/02/16 Telephone Encounter - Kleber Ledesma PA-C - 06/02/2016 12:51 PM CDT Sounds fine to me. Thanks for making the call and writing the note. I will print and sign it. Let's have her set up either a phone visit or OV for Wednesday for a recheck. Remind her of brain rest, Tylenol for GODDARD and see if zofran is helping. Thanks much! Kleber Telephone Encounter - Deisy Elizabeth RN - 06/02/2016 12:05 PM CDT Spoke with patient. She would like to take a few extra days to rest. 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 Note written. Please review. Would like to nut picker this afternoon. Deisy Elizabeth RN Telephone Encounter - Cherrie Mcknight - 06/02/2016 10:36 AM CDT Pt called for update, given message below. She would appreciate a phone call from Deisy to elsa Home: Kishan Mcknight Partner Marketing Manager 06/02/16 Telephone Encounter - Kleber Ledesma PA-C - 06/02/2016 9:57 AM CDT If she wants to be completely off then I can write a new note. If she thinks she can try a part timeschedule then lets have her schedule a phone visit so we can talk. Kleber Telephone Encounter - Deisy Elizabeth RN - 06/02/2016 8:22 AM CDT Patient calling with follow up regarding concussion. States that she is feeling somewhat better but still has headaches off/on. She describes them as pressure. She also still feels dizzy and light headed off/on. Maybe not as sleepy but still has little energy. 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 She is wondering if she should still be off work? 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 Or have restrictions? Please advise. Home: Deisy Elizabeth RN documented in this encounter Plan of Treatment Not on filedocumented as of this encounter Visit Diagnoses Not on filedocumented in this encounter Care Teams Multi Disciplined Language Analyst Relationship Specialty Start Date End Date Kleber Ledesma, PCP - General Physician Clinical Biostatistics Director - 05/15/14 [facility] documented as of this encounter
--- OUTSIDE RECORDS SUMMARY | 2022-01-05 11:36 | XMS_ITS | Encounter Summary ---
:1960 Author Organization [place] [facility] Address [address] [place] [address]. [place] [address] Care Team Providers Name Role Phone Kleber Ledesma PA-C Primary Care Provider Reason for Visit Reason Comments Work Comp head injury Encounter Details Date Type Department Care Team Description 09/02/2017 [facility] [place] [address] [place] [address] [facility], [address], [address] [place] [address] initial encounter [place], [place] [phone] (Wo rk) (Primary Dx) [address] [phone] Social History Tobacco Use Types Packs/Day Years [...] Sign Reading Time Taken Comments Blood Pressure 120/80 09/02/2017 9:58 AM CDT Pulse 66 09/02/2017 9:58 AM CDT Temperature 36.7 ??C (98.1 ??F) 09/02/2017 9:58 AM CDT Respiratory Rate 16 09/02/2017 9:58 AM CDT Oxygen Saturation - - Inhaled Oxygen Concentration - - Weight 68 kg (150 lb) 09/02/2017 9:58 AM CDT Height - - Body Mass Index 27.44 07/21/2017 3:37 PM CDT documented in this encounter Patient Instructions Patient InstructionsPeKleber mitchell PA-C - 09/02/2017 10:00 AM CDT Off work for the weekend, if not you feel like you need more time, call on Wednesday. documented in this encounter Progress Notes Kleber Ledesma PA-C - 09/02/2017 10:00 AM CDT HPI SUBJECTIVE: Amie Scott is a 57 year old female who presents to clinic today for the following health issues: Work comp injury: while walking slipped on and fell in dinning area at work, hit left side of head on metal frame of door. DOI: 09/01/2017, 1220pm Symptoms: having a lot of pressure in head, tiredness, feels fuzzy, feels agitated. Took tylenol for pain. Injury happened yesterday, slipped and fell in a kitchen, hitting head on a metal door frame. Feeling fuzzy, memory fuzzy. Hit head on the same side as a previous injury (May of 2016). This is more mild than previously. No nausea or vomiting. Problem list and histories reviewed & adjusted, as indicated. Additional history: as documented Reviewed and updated as needed this visit by clinical staff Tobacco Allergies Meds Med Hx Surg Hx Fam Hx Soc Hx Reviewed and updated as needed this visit by Provider ROS: Constitutional, HEENT, cardiovascular, pulmonary, gi and gu systems are negative, except as otherwise noted. OBJECTIVE: BP 120/80 Pulse 66 Temp 98.1 ??F (36.7 ??C) (Oral) Resp 16 Wt 150 lb (68 kg) LMP 02/22/2010 BMI 27.44 kg/m2 Body mass index is 27.44 kg/(m^2). GENERAL: healthy, alert and no distress HENT: ear canals and TM's normal, nose and mouth without ulcers or lesions- head, left temporal and occipital region TTP without deformity noted NECK: no adenopathy, no asymmetry, masses, or scars and thyroid normal to palpation MS: no gross musculoskeletal defects noted, no edema SKIN: no suspicious lesions or rashes NEURO: Normal strength and tone, sensory exam grossly normal, mentation intact and cranial nerves 2-12 intact PSYCH: mentation appears normal and affect flat Diagnostic Test Results: none ASSESSMENT/PLAN: 1. Concussion without loss of consciousness, initial encounter - note for off work until Wednesday September 06, 2017. She will use Tylenol and ice to the sore part of herhead. Rest at home and follow up if this is worsening. Due for PAP, she will schedule. Kleber Ledesma PA-C [facility] Physical Exam documented in this encounter Nursing Notes Cherrie Mcknight - 09/02/2017 10:00 AM CDT WC form faxed to Fely Coleman [phone] Kishan Mcknight Power Builder Developer 09/02/17 10:30 AM documented in this encounter Plan of Treatment Not on filedocumented as of this encounter Visit Diagnoses Diagnosis Concussion without loss of consciousness , initial encounter - Primary documented in this encounter Care Teams Bristle Machine Operator Relationship Specialty Start Date End Date Kleber Ledesma, PCP - General Physician Head Of Physics - 05/15/14 [facility] Medical documented as of this encounter
--- OUTSIDE RECORDS SUMMARY | 2022-01-05 11:36 | XMS_ITS | Encounter Summary ---
:1960 Author Organization [facility] Address [address] [place] [address]. [place] [address] Care Team Providers Name Role Phone Kleber Ledesma PA-C Primary Care Provider [phone] Reason for Visit Reason Onset Date Comments Forms 09/28/2016 [employer]d Encounter Details Date Type Department Care Team Description 09/28/[address] [facility] Kleber Ledesma Forms ([facility] comp Clinic [place] RACHNA Valderrama ) [address] [place] [address] [place], [place] [phone] (Wo rk) [address] [phone] Social History Tobacco Use Types Packs/Day Years [...] Notes Telephone Encounter - Cherrie Mcknight - 10/01/2016 3:04 PM CDT Faxed form to [phone], then forms were sent to abstraction and a temporary copy is kept in a folder at the [facility]. Kishan Mcknight Storm Window Installer 10/01/16 3:04 PM Telephone Encounter - Kleber Ledesma PA-C - 10/01/2016 12:53 PM CDT Completed. ajp Telephone Encounter - Deisy Elizabeth RN - 09/30/2016 8:40 AM CDT Form completed. Placed in Kleber's in-basket for signature and date. Deisy Elizabeth RN Telephone Encounter - Cherrie Mcknight - 09/28/2016 4:24 PM CDT Forms to RN for completion. Kishan Mcknight Storm Window Installer 09/28/16 4:26 PM Telephone Encounter - Mariela Reyes - 09/28/2016 3:25 PM CDT Reason for call: Form Our goal is to have forms completed within 72 hours, however some forms may require a visit or additional information. Who is the form from? [place] [employer] (if other please explain) Where did the form come from? form was mailed in What clinic location was the form placed at? [place] Where was the form placed? [facility] What number is listed as a contact on the form? [phone] Phone call message - patient request for a letter, form or note: Date needed: as soon as possible Please fax to [phone] Has the patient signed a consent form for release of information? YES Additional comments: Type of letter, form or note: worker's compensation Phone number to reach patient: Home number on file [phone] (home) Best Time: Any Can we leave a detailed message on this number? Not Applicable documented in this encounter Plan of Treatment Not on filedocumented as of this encounter Visit Diagnoses Not on filedocumented in this encounter Care Teams Slag Motor Operator Relationship Specialty Start Date End Date Kleber Ledesma, PCP - General Physician Transformer Coil Winder - 05/15/14 PADeanneC Medical documented as of this encounter
--- OUTSIDE RECORDS SUMMARY | 2022-01-05 11:36 | XMS_ITS | Encounter Summary ---
:1960 Author Organization [place] Address [address] [place] [address]. [place] [address] Care Team Providers Name Role Phone Kleber Ledesma PA-C Primary Care Provider [phone] Reason for Visit Reason Onset Date Comments Medication Refill 06/14/2017 atenolol-chlorthalid one (TENORETIC) 50-25 MG per tablet Encounter Details Date Type Department Care Team Description 06/14/2017 Refill [facility] Kleber Ledesma Medicjonelle tion Refill Clinic [place] RACHNA Valderrama (atenolol-chlorthalidon [address] [facility], [address] [place] [address] NAYLA AVAgus e (TENORETIC) 50-[address] [place] [address] per tablet) [place], [place] [phone] (Wo rk) [address] [phone] Social History Tobacco Use Types Packs/Day Years [...] Telephone Encounter - Deisy Elizabeth RN - 06/15/2017 9:40 AM CDT Creatinine Date Value Ref Range Status 05/11/2017 0.90 0.52 - 1.04 mg/dL Final Potassium Date Value Ref Range Status 05/11/2017 3.2 (L) 3.4 - 5.3 mmol/L Final Prescription approved per [facility] Refill Protocol. Deisy Elizabeth, RN Telephone Encounter - Latia Edwards - 06/14/2017 9:49 AM CDT Requested Prescriptions Pending Prescriptions Disp Refills ??? atenolol-chlorthalidone (TENORETIC) 50-25 MG per tablet [Pharmacy Med Name: ATENOLOL-CHLORTH 50-25MG TAB] 90 tablet 0 Last Written Prescription Date: 02/11/17 Last Fill Quantity: 90, # refills: 0 Last Office Visit: 05/11/2017 Future Office Visit: Sig: TAKE ONE TABLET BY MOUTH EVERY DAY Beta-Blockers Protocol Passed 06/14/2017 4:33 AM Passed - Blood pressure under 140/90 in past 12 months BP Readings from Last 3 Encounters: 05/11/17 118/68 03/02/17 130/72 02/12/17 111/71 Passed - Patient is age 5 or [...] 140/90 documented in this encounter Care Teams Director Of Compensation Relationship Specialty Start Date End Date Kleber Ledesma, PCP - General Physician Manufacturing Manager - 05/15/14 PA-C Medical documented as of this encounter
--- OUTSIDE RECORDS SUMMARY | 2022-01-05 11:36 | XMS_ITS | Encounter Summary ---
:1960 Author Organization [place] Address [address] [place] [address] Care Team Providers Name Role Phone Kleber Ledesma PA-C Primary Care Provider [phone] Kleber Ledesma PA-C Unavailable [phone] Kleber Ledesma PA-C Unavailable [phone] Sasha Tai RN Unavailable Unavailable Junie Rm PA-C Unavailable Patricia Brown RN Unavailable Kleber Ledesma PA-C Unavailable [phone] Encounter Details Date Type Department Care Team Description 09/30/2017 Records - [facility] CONVERSION Scan, Non-Provider [...] COVID-19 01/08/2020 01/08/2020 01/09/2020 1:3 2 AM SECURITY MONITOR COVID-19 01/08/2020 01/08/2020 01/29/2020 11:40 PM SECURITY MONITOR Rule Out COVID-19 12/15/2020 12/15/202012/1612/16/2020 2:5 5 PM SECURITY MONITOR Rule Out COVID-19 12/23/2020 12/23/2020 12/23/2020 6:3 0 PM SECURITY MONITOR Assessment Noted Time PHQ-9 Depression Total Score: 11 10/01/2017 7:03 AM CD T documented as of this encounter Care Teams Temperature Regulator Relationship Specialty Start Date End Date Kleber Ledesma PCP - General Physician Forest Fire Prevention Specialist - 05/15/14 RACHNA Valderrama Medical Kleber Ledesma PCP - Assigned PCP 09/19/17 9 RACHNA Valderrama [address] [place], [place] [id number] Kleber Ledesma Assigned PCP 09/19/17 06/01/20 RACHNA Valderrama [address] [place], [place] [id number] Sasha Tai, RN Personal Advocate [facility] Family Practice 11/02/19 02/14/20 Liaison (PAL) Junie Rm, Assigned PCP 06/02/20 06/08/20 R[place] [address] [place], [place] [phone] Patrciia Brown, RN Clinic [facility] 06/03/20 06/03/20 Kleber Ledesma Assigned PCP 06/09/20 RACHNA Valderrama [address] [place], [place] [id number] documented as of this encounter
--- OUTSIDE RECORDS SUMMARY | 2022-01-05 11:36 | XMS_ITS | Encounter Summary ---
:1960 Author Organization [facility] Address [address] [place] [address] Care Team Providers Name Role Phone Kleber Ledesma PA-C Primary Care Provider [phone] Encounter Details Date Type Department Care Team Description 01/27/2017 Orders Only [facility] for screening [place] mammogram for breast [address] [facility] [place] [address] Social History Tobacco Use Types Packs/Day Years [...] Associated Diagnosis Comme nts MA SCREENING Routine 01/27/2017 4:00 PM Encounter for Results for this DIGITAL BILATERAL WOOL BUYER screening mammogram pro tim are in for breast cancer the result s section. documented in this encounter Results *MA Screening Digital Bilateral (01/27/2017 4:00 PM WOOL BUYER) Anatomical Region Laterality Modality Breast Bilateral Mammography Specimen (Source) Anatomical Location Collection Method / Collectio n Time Received Time / Laterality Volume Impressions 01/27/2017 4:18 PM WOOL BUYER IMPRESSION: BI-RADS CATEGORY: 1 - ??NEGATIVE. RECOMMENDED FOLLOW-UP: Annual Mammograph y. The patient will be notified of the resu lts. ISAIAH CEVALLOS MD Narrative 01/27/2017 4:18 PM WOOL BUYER Examination: Bilateral digital screening mammography with computer [...] MD Yesi Álvarez MD IMG MAMMOGRAPHY ORDERABLES documented in this encounter Visit Diagnoses Diagnosis Encounter for screening mammogram for br east cancer documented in this encounter Care Teams Senior Software Engineering Manager Relationship Specialty Start Date End Date Kleber Ledesma, PCP - General Physician Right Of Way Cutter - 05/15/14 PA-C Medical documented as of this encounter
--- OUTSIDE RECORDS SUMMARY | 2022-01-05 11:36 | XMS_ITS | Encounter Summary ---
:1960 Author Organization [facility] Address [address] [place] [address]. [place] [address] Care Team Providers Name Role Phone Kleber Ledesma PA-C Primary Care Provider [phone] Reason for Visit Reason Comments Work Comp Head Injury Encounter Details Date Type Department Care Team Description 09/13/2017 Office Visit [facility] Kleber Ledesma justo without Clinic [place] [address] [place] [address] [facility], [address] [place] [address] subsequent encounter [place], [place] [phone] (Wo rk) (Primary Dx) [id number] [phone] Social History Tobacco Use Types Packs/Day Years [...] Sign Reading Time Taken Comments Blood Pressure 114/70 09/13/2017 3:07 PM CDT Pulse 62 09/13/2017 3:07 PM CDT Temperature 36.9 ??C (98.4 ??F) 09/13/2017 3:07 PM CDT Respiratory Rate 16 09/13/2017 3:07 PM CDT Oxygen Saturation - - Inhaled Oxygen Concentration - - Weight 67.6 kg (149 lb) 09/13/2017 3:07 PM CDT Height - - Body Mass Index 27.25 07/21/2017 3:37 PM CDT documented in this encounter Progress Notes Kleber Ledesma PA-C - 09/13/2017 2:40 PM CDT SUBJECTIVE: Amie Scott is a 57 year old female who presents to clinic today for the following health issues: WORK COMP FOLLOW UP: Head injury, patient states she is here for follow up to visit with Neurology (Susana Mcgrath) visit. She was not happy with that visit. [place] she was blown off with her symptoms and told nothing for follow up. She said the Neurologist told her to follow up with PCP for work restrictions, that she was taking too much advil and that she could have a CT scan just in case they weremissing something. She was not even sure her symptoms were concussion related. Patient states she is still having the same headache, dull pressure, some fuzziness, feeling more fatigued, forgetfulness of short term things, driving has been difficult, but did drive here today and was okay or better. All the other symptoms are better. The real agitation is gone. Was taking either advil or tylenol. But only 1-2 times daily. Headaches are better, some soreness tothe head still present but better. Nausea has improved also. Work hours are 7-3pm Every Wednesday off. Doesn't always get a break while at work to rest or stop. She is not sure about being able to work afull shift yet. Problem list and histories reviewed & adjusted, as indicated. Additional history: as documented Reviewed and updated as needed this visit by clinical staff Tobacco Allergies Meds Med Hx Surg Hx Fam Hx Soc Hx Reviewed and updated as needed this visit by Provider ROS: Constitutional, HEENT, cardiovascular, pulmonary, gi and gu systems are negative, except as otherwise noted. OBJECTIVE: BP 114/70 (BP Location: Right arm, Patient Position: Sitting, Cuff Size: Adult Regular) Pulse 62 Temp 98.4 ??F (36.9 ??C) (Oral) Resp 16 Wt 149 lb (67.6 kg) LMP 02/22/2010 BMI 27.25 kg/m2 Body mass index is 27.25 kg/(m^2). GENERAL: healthy, alert and no distress HENT: ear canals and TM's normal NECK: no adenopathy, no asymmetry, masses, or scars MS: no gross musculoskeletal defects noted, no edema SKIN: no suspicious lesions or rashes NEURO: Normal strength and tone, sensory exam grossly normal, mentation intact and cranial nerves 2-12 intact PSYCH: mentation appears normal, affect flat and fatigued Diagnostic Test Results: none ASSESSMENT/PLAN: 1. Concussion without loss of consciousness, subsequent encounter - letter for work and workability completed today. 1/2 days for one week as a trial. I do think she should try rn postpartum hours. If too taxing we can adjust modifications. She says she is improving slowly. It seems she has been able to be out a bit this week but it does make her tired. When home she should be on brain rest to speed recovery. I do not think she needs the imaging yet. If she has sudden changes to neuro exam or findings we will complete this. We discussed briefly post concussion syndrome. I do not think she meets this yet but I do think she is at risk for it. Follow up one week. Kleber Ledesma PA-C [facility] documented in this encounter Nursing Notes Gabrielle Garcia MA - 09/13/2017 2:40 PM CDT Office notes from today's visit faxed to Mario Conner RN at [phone], who is patient's C, for this work comp visit. Gabrielle Garcia MA documented in this encounter Plan of Treatment Not on filedocumented as of this encounter Visit Diagnoses Diagnosis Concussion without loss of consciousness , subsequent encounter - Primary documented in this encounter Care Teams Career Education Teacher Relationship Specialty Start Date End Date Kleber Ledesma, PCP - General Physician Forensic Scientist - 05/15/14 R[facility] Medical documented as of this encounter
--- OUTSIDE RECORDS SUMMARY | 2022-01-05 11:36 | XMS_ITS | Encounter Summary ---
:1960 Author Organization [facility] Address [address] [place] [address]. 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 [address] [facility] [place] [address] [place] [address] [place] [address] Phone: Fax: Referral ID Status Reason Start Date Expiration Date Visits Requ ested Visits Authorized [id number] Closed 09/20/2017 09/20/2018 1 1 Reason for Visit Reason Comments Work Comp Head Injury Encounter Details Date Type Department Care Team Description 09/20/2017 Office Visit [facility] Angelia Castañeda Concuss ion without Clinic Thomas [place] [address] [place] [address] [address], [address], [address] [place] [address] subsequent encounter [place], [place] [phone] (Wo rk) (Primary Dx) [id number] [phone] Social History Tobacco Use Types Packs/Day Years [...] Sign Reading Time Taken Comments Blood Pressure 104/70 09/20/2017 11:40 AM CDT Pulse 60 09/20/2017 11:40 AM CDT Temperature 36.7 ??C (98 ??F) 09/20/2017 11:40 AM CDT Respiratory Rate 12 09/20/2017 11:40 AM CDT Oxygen Saturation 98% 09/20/2017 11:40 AM CDT Inhaled Oxygen Concentration - - Weight 68.6 kg (151 lb 4.8 oz) 09/20/2017 11:40 AM CDT Height - - Body Mass Index 27.67 07/21/2017 3:37 PM CDT documented in this encounter Progress Notes Angelia Castañeda, ETHAN PARTS PROCESSOR - 09/20/2017 11:40 AM CDT SUBJECTIVE: Amie Scott is a 57 year old female who presents to clinic today for the following health issues: Concern - Head Injury Onset: 09/01/2017 ?? Description: Pt states that things are getting better except decision making and memory ?? Intensity: ?? Progression of Symptoms: improving ?? Accompanying Signs & Symptoms: Still some headaches - with sometimes feeling out of it. Pt states that she does not still feel likeherself. ?? Previous history of similar problem: none ?? Precipitating factors: Worsened by: none ?? Alleviating factors: Improved by: - Therapies Tried and outcome: She went back to working half days last week. Things were going really well with the exception of Wednesday. Wednesday was overwhelming at work and thiswas harder than usual to manage. She is wondering about going back to work full days. Headaches are improving, but continues to have mild headaches daily. Currently not taking anything for the pain. +photosensitivity Denies vision changes. Decision making is cloudy. Gets muddled up easily. Feels like she is having a hard time navigating while driving especially areas that are new or underconstruction. Problem list and histories reviewed & adjusted, as indicated. Additional history: as documented Current Outpatient Prescriptions Medication Sig Dispense Refill ??? atenolol-chlorthalidone (TENORETIC) 50-25 MG per tablet TAKE ONE TABLET BY MOUTH EVERY DAY 90 tablet 3 ??? meloxicam (MOBIC) 7.5 MG tablet Take 1 tablet (7.5 mg) by mouth daily 90 tablet 3 ??? simvastatin (ZOCOR) 20 MG tablet TAKE ONE TABLET BY MOUTH AT BEDTIME 90 tablet 2 ??? aspirin 81 MG tablet Take 81 mg by mouth daily ??? CALCIUM CARBONATE PO [...] Take 1 tablet by mouth daily ??? Leona-3 Fatty Acids (OMEGA-3 FISH OIL PO) Take 2.4 g by mouth daily ??? order for DME Equipment being ordered: knee brace for osteoarthritis (Patient not taking: Reported on 09/02/2017) 1 each 0 ??? vitamin E (VITAMIN E) 200 UNIT capsule Take 400 Units by mouth daily Allergies Allergen Reactions ??? No Known Drug Allergies Reviewed and updated as needed this visit by clinical staff Reviewed and updated as needed this visit by Provider ROS: Constitutional, HEENT, cardiovascular, pulmonary, gi and gu systems are negative, except as otherwise noted. OBJECTIVE: BP 104/70 (BP Location: Right arm, Patient Position: Chair, Cuff Size: Adult Regular) Pulse 60 Temp 98 ??F (36.7 ??C) (Oral) Resp 12 Wt 151 lb 4.8 oz (68.6 kg) LMP 02/22/2010 SpO2 98% ? No BMI 27.67 kg/m2 Body mass index is 27.67 kg/(m^2). GENERAL: healthy, alert and no distress EYES: Eyes grossly normal to inspection, PERRL, EOMI HENT: ear canals and TM's normal, nose and mouth without ulcers or lesions NECK: no adenopathy, FROM RESP: lungs clear to auscultation - no rales, rhonchi or wheezes CV: regular rate and rhythm, normal S1 S2, no S3 or S4, no murmur, click or rub MS: no gross musculoskeletal defects noted, OZUNA NEURO: Normal strength and tone, mentation intact and cranial nerves 2-12 intact, speech normal PSYCH: mentation appears normal, affect normal/bright Diagnostic Test Results: none ASSESSMENT/PLAN: 1. Concussion without loss of consciousness, subsequent encounter Will have her seen in the concussion clinic due to ongoing cognitive symptoms several weeks out fromdate of injury. Given her ongoing symptoms I do not think going back to full days of work is a good idea. Will have her continue half days at this point. - CONCUSSION BLUE LINE TRIMMER REFERRAL F/u 1 wk Angelia Castañeda APRN CNP [facility] documented in this encounter Plan of Treatment Not on filedocumented as of this encounter Visit Diagnoses Diagnosis Concussion without loss of consciousness , subsequent encounter - Primary documented in this encounter Care Teams Quoter Relationship Specialty Start Date End Date Kleber Ledesma, PCP - General Physician Police Specialist - 05/15/14 PADeanneC Medical Kleber Ledesma, PCP - Assigned PCP 09/19/17 04/12/18 [place] [address] [address] [phone] Kleber Ledesma, Assigned PCP 09/19/17 PAKerrie [address] [address] [id number] documented as of this encounter
--- OUTSIDE RECORDS SUMMARY | 2022-01-05 11:36 | XMS_ITS | Encounter Summary ---
:1960 Author Organization [facility] Address [address] [place] [address]. [place] [address] Care Team Providers Name Role Phone Kleber Ledesma PA-C Primary Care Provider [phone] Reason for Visit Reason Comments Medication Refill simvastatin (ZOCOR) 20 MG ta blet Encounter Details Date Type Department Care Team Description 10/01/2016 Refill [facility] Kleber Ledesma tion Refill Clinic [place] RACHNA Valderrama (simvastatin (ZOCOR) [facility], [address] [place] [address] [address] MG tablet) [address] [place] [address] [place], [place] [phone] (Wo rk) [id number] [phone] Social History Tobacco Use Types Packs/Day Years [...] Telephone Encounter - Deisy Elizabeth RN - 10/01/2016 9:32 AM CDT Medication is being filled for 1 time refill only due to: Patient needs labs fasting cholesterol. Future labs ordered lipid panel. Letter sent to patient. Deisy Elizabeth RN Telephone Encounter - Latia Edwards - 10/01/2016 9:07 AM CDT simvastatin (ZOCOR) 20 MG tablet Last Written Prescription Date: 05/12/16 Last Fill Quantity: 90, # refills: 1 Last Office Visit with [facility], [facility] or [facility] prescribing provider: 08/25/2016 Lab Results Component Value Date CHOL 208 11/04/2015 Lab Results Component Value Date HDL 64 11/04/2015 Lab Results Component Value Date LDL 117 11/04/2015 Lab Results Component Value Date TRIG 135 11/04/2015 Lab Results Component Value Date CHOLHDLRATIO 2.7 09/24/2014 SILVIANO Long October 01, 2016 9:08 AM documented in this encounter Plan of Treatment Not on filedocumented as of this encounter Results Hepatitis C Screen Reflex to RNA FUTURE anytime (10/19/2016 8:52 AM CDT) [facility] gist Method Time Signature Hepatitis C Nonreactive NR^Nonrea 10/20/2016 [facility] ctive 12:58 PM CDT [facility] Comment: Assay performance characteristics have n ot been established for newborns, infants, and children Specimen Anatomical Collection Method Collection Time Receive d Time (Source) Location / / Volume Laterality Blood specimen 10/19/2016 8:52 AM 017 8:57 (specimen) CDT AM CDT Kleber Ledesma PA-C LAB - BLOOD ORDERABLES Performing Organization Address City/State/ZIP Code Phon e Number [facility] [address] [place] [address] [place] (ABNORMAL) Lipid panel reflex to direct LDL (10/19/2016 8:52 AM CDT) Analysis Performed At [facility] logist Time Signature Cholesterol 184 <200 mg/dL 10/19/2016 [facility] 5:41 PM CDT [facility][1] Triglycerides 152 (H) <150 mg/dL 10/19/2016 [facility] 5:41 PM CDT [facility][1] Comment: Borderline high: ??150-199 mg/dl High: ? 200-499 mg/dl Very high: ? >499 mg/dl Fasting specimen HDL Cholesterol 66 >49 mg/dL 10/19/2016 5:45 PM CDT [facility] LDL Cholesterol 88 <100 mg/dL 10/19/2016 5:[address] [facility] Calculated [facility] Comment: Desirable: <100 mg/dl Non HDL Cholesterol 118 <130 mg/dL 10/19/2016 5:45 PM CDT [facility] Specimen Anatomical Collection Method Collection Time Receive d Time (Source) Location / / Volume Laterality Blood specimen 10/19/2016 8:52 AM 017 8:57 (specimen) CDT AM CDT Kleber Ledesma PA-C LAB - BLOOD ORDERABLES Performing Organization Address City/State/ZIP Code Phon e Number [facility] [address] [place] [address] documented in this encounter Visit Diagnoses Diagnosis Mixed hyperlipidemia documented in this encounter Care Teams Relief Pharmacist Relationship Specialty Start Date End Date Kleber Ledesma, PCP - General Physician Service Dispatcher - 05/15/14 RACHNA Medical documented as of this encounter
--- OUTSIDE RECORDS SUMMARY | 2022-01-05 11:36 | XMS_ITS | Encounter Summary ---
:1960 Author Organization [facility] Address [address] [place] [address]. [place] [address] Care Team Providers Name Role Phone Kleber Ledesma PA-C Primary Care Provider [phone] Reason for Visit Diagnostic Imaging XR - Closed Specialty Diagnoses / Procedures Referred By Contact Refer red To Contact Diagnoses Cough Millicent Rivera MD Procedures XR Chest 2 Views [address] [place], [place] [address] Referral ID Status Reason Start Date Expiration Date Visits Requ ested Visits Authorized [id number] Closed 02/12/2017 02/12/2018 1 1 Encounter Details Date Type Department Care Team Description 02/12/[address] [facility] Millicent Leger MD Cough [place] [id number] [place] [address] [place] [phone] Social History Tobacco Use Types Packs/Day Years [...] Priority Date/Time Associated Diagnosis Comme nts XR CHEST 2 VIEWS Routine 02/12/2017 2:45 PM Cough Resul ts for this SEED EXPERT procedure are i n the results section. documented in this encounter Results XR Chest 2 Views (02/12/2017 2:45 PM SEED EXPERT) Anatomical Region Laterality Modality Chest Computed Radiography Specimen (Source) Anatomical Location Collection Method / Collectio n Time Received Time / Laterality Volume Impressions 02/12/2017 4:22 PM SEED EXPERT IMPRESSION: Since January 28, 2016, heart size remains normal. No pleural effusion, pneumothorax, or abnor mal area of consolidation. Minimal scoliotic curvature of the thora columbar spine, apex left. Cholecystectomy clips. PHILLIP NICHOLSON MD Narrative 02/12/2017 4:22 PM SEED EXPERT CHEST TWO VIEWS ??02/12/2017 2:45 PM HISTORY: [...] in this encounter Visit Diagnoses Diagnosis Cough documented in this encounter Care Teams Photoengraving Machine Operator/Tender Relationship Specialty Start Date End Date Kleber Ledesma, PCP - General Physician Gravity Prospector - 05/15/14 RACHNA Medical documented as of this encounter
--- OUTSIDE RECORDS SUMMARY | 2022-01-05 11:36 | XMS_ITS | Encounter Summary ---
:1960 Author Organization [facility] Address [address] [place] [address] Care Team Providers Name Role Phone Kleber Ledesma PA-C Primary Care Provider [phone] Kleber Ledesma PA-C Unavailable [phone] Kleber Ledesma PA-C Unavailable [phone] Reason for Visit Reason Comments Work Comp Head Injury Encounter Details Date Type Department Care Team Description 09/27/[address] [facility] Kleber Ledesma oncussive Clinic [place] RACHNA Valderrama syndrome (Primary Dx) [address] [place] [address] [facility], [address] [phone] (Wo rk) [address] [phone] Social History Tobacco Use Types Packs/Day Years [...] Reading Time Taken Comments Blood Pressure 128/70 09/27/2017 9:17 AM CDT Pulse 68 09/27/2017 9:17 AM CDT Temperature 36.7 ??C (98 ??F) 09/27/2017 9:17 AM CDT Respiratory Rate 16 09/27/2017 9:17 AM CDT Oxygen Saturation - - Inhaled Oxygen Concentration - - Weight 69.4 kg (153 lb) 09/27/2017 9:17 AM CDT Height - - Body Mass Index 27.98 07/21/2017 3:37 PM CDT documented in this encounter Progress Notes Kleber Ledesma PA-C - 09/27/2017 9:00 AM CDT SUBJECTIVE: Amie Scott is a 57 year old female who presents to clinic today for the following health issues: Work comp follow up - Concussion - concerns about things that are happening in everyday life events.Like being confused with driving, not remembering people, irritated with people. Some area's doing better, some not. Saw Angelia rather than me last week. Recommended concussion clinic and not going back time checker yet. She has appointment set up for Sep 30 with concussion people for initial appointment in [facility] Has had times at work that have been very stressful for her, still going 1/2 time. Event recently when she was driving (with her grandchildren in the car) where she was going to turn into oncoming traffic. 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 Goingto and from work or routine places is OK. Having trouble putting faces with names of people that she knows. Has happened at work twice now. Feels her temper is very short, snapped on her fiance the other day which is not normal for her. Problem list and histories reviewed & adjusted, [...] Cuff Size: Adult Regular) Pulse 68 Temp 98 ??F (36.7 ??C) (Oral) Resp 16 Wt 153 lb (69.4 kg) LMP 02/22/2010 BMI 27.98 kg/m2 Body mass index is 27.98 kg/(m^2). GENERAL: healthy, alert and no distress NEURO: Normal strength and tone, mentation intact and speech normal PSYCH: mentation appears normal, affect flat, anxious, fatigued and she does seem confused and forgetful at times during the visit. Diagnostic Test Results: PHQ-9 SCORE 09/27/2017 09/30/2017 Total Score MyChart - 11 (Moderate depression) Total Score 15 11 MORENA-7 SCORE 09/27/2017 09/30/2017 Total Score - 7 (mild anxiety) Total Score 10 7 ASSESSMENT/PLAN: 1. Post concussive syndrome I do have concerns about Amie at this point. I would expect her recovery to be more progressed by now. She seems to be struggling with certain aspects still such as driving and some things that affect her job potentially. It seems that this is distressing her and affecting her relationship at home as well. I think perhaps starting and serotonin specific reuptake inhibitor will be helpful and the appointment with concussion management will be helpful also. She has been cleared neurologically at this point from Neurology so next steps will be post concussive I believe. - citalopram (CELEXA) 10 MG tablet; Take 1 tablet (10 mg) by mouth daily Dispense: 30 tablet; Refill: 0 Work restrictions the same until Oct 04 or until concussion management gets involved. Kleber Ledesma PA-C [facility] documented in this encounter Plan of Treatment Not on filedocumented as of this encounter Visit Diagnoses Diagnosis Post concussive syndrome - Primary Postconcussion syndrome documented in this encounter Additional Health Concerns Assessment Noted Time PHQ-9 Depression Total Score: 15 09/28/2017 8:41 AM CD T documented as of this encounter Care Teams Senior Designer/Art Director Relationship Specialty Start Date End Date Kleber Ledesma, PCP - General Physician Otolaryngologist - 05/15/14 R[facility] Medical Kleber Ledesma, PCP - Assigned PCP 09/19/17 04/12/18 R[place] [address] [address] [address] Kleber Ledesma, Assigned PCP 09/19/17 R[place] [address] [address] [address] documented as of this encounter
--- OUTSIDE RECORDS SUMMARY | 2022-01-05 11:37 | XMS_ITS | Encounter Summary ---
:1960 Author Organization [facility] Address [address] [place] [address]. [place] [address] Care Team Providers Name Role Phone Kleber Ledesma PA-C Primary Care Provider [phone] Reason for Visit Reason Onset Date Comments Patient Request for Note/Letter 05/27/2016 Work Exc use Encounter Details Date Type Department Care Team Description 05/27/2016 Telephone [facility] Kleber Ledesma Request for Clinic [place] RACHNA Valderrama Note/Letter (Work [facility], [address] [place] [address] Excuse) [address] [place] [address] [place], [place] [phone] (Wo rk) [id number] [phone] Social History Tobacco Use Types Packs/Day Years [...] Telephone Encounter - Deisy Elizabeth RN - 05/27/2016 10:11 AM CDT Patient calling stating she was seen yesterday in ER for head injury. See ER report. States she stayed home from work today because she still has a slight headache and was really not sure what to do. Gave patient information about post concussive syndrome. Will give note for patient to be off work forthe next 2 days to rest. Will follow up as needed. Deisy Elizabeth, RN documented in this encounter Plan of Treatment Not on filedocumented as of this encounter Visit Diagnoses Not on filedocumented in this encounter Care Teams Pig Iron Loader Relationship Specialty Start Date End Date Kleber Ledesma, PCP - General Physician Mold Changer - 05/15/14 PA-C Medical documented as of this encounter
--- OUTSIDE RECORDS SUMMARY | 2022-01-05 11:37 | XMS_ITS | Encounter Summary ---
:1960 Author Organization [facility] Address [address] [place] [id number] Care Team Providers Name Role Phone Kleber Ledesma PA-C Primary Care Provider [phone] Reason for Visit Reason Comments Laceration Encounter Details Date Type Department Care Team Description 05/26/2016 Emergency [facility] Marry Song MD Laceration of forehead, initial [facility] Emergency Dep t [facility] Closed head injury, initial encounter [address] [place], [place] [address] [id number] [place] [address] [phone] (Wo rk) Social History Tobacco Use Types [...] Sign Reading Time Taken Comments Blood Pressure 136/95 05/26/2016 11:01 AM CDT Pulse 68 05/26/2016 11:01 AM CDT Temperature 37 ??C (98.6 ??F) 05/26/2016 11:01 AM CDT Respiratory Rate 16 05/26/2016 11:01 AM CDT Oxygen Saturation 100% 05/26/2016 11:01 AM CDT Inhaled Oxygen Concentration - - Weight - - Height - - Body Mass Index - - documented in this encounter Discharge Instructions Discharge InstructionsMarry Song MD - 05/26/2016 11:44 AM CDT Images from the original note were not included. *Keep the lacerations clean. You may wash with soap and water. Avoid lotions, makeup or other thingslike neosporin/bacitracin. No soaking or swimming. *Tylenol or motrin as directed as needed for pain. *Return if any symptoms of infection including severe headache, vomiting, numbness or weakness, seizure like activity, fever, worsening pain, foul- smelling drainage, spreading redness or warmth or worse in any way. Face Laceration: Skin Glue A laceration is a cut through the skin. A laceration on your face has??been closed with skin glue. This is used on cuts that have smooth edges and are not infected.??In some cases, a lower layer of skin may be sutured before skin glue is put on. The skin glue closes the cut within a few minutes. It also provides a water-resistant cover. No bandage is needed. Skin glue peels off on its own within 5 to10 days.?? Home care ?? Your healthcare provider may prescribe an antibiotic. This is to help prevent infection. Follow all instructions for taking this medicine. Take the medicine every day until it is gone or you are told to stop. You should not have any left over. ?? The healthcare provider may prescribe medicines for pain. Follow instructions for taking them. ?? Follow the healthcare provider???s instructions on how to care for the cut. ?? Keep the wound clean and dry. You may shower or bathe as usual, but do not use soaps, lotions, orointments on the wound area. Do not scrub the wound. After bathing, pat the wound dry with a soft towel.??Avoid soaking the cut in water. ?? Do not scratch, rub, or pick at the film. Do not place tape directly over the film. ?? Do not apply liquids (such as peroxide), ointments, or creams to the wound while the film is in place. ?? Most facial??skin wounds heal without problems. However, an infection sometimes occurs despite proper treatment. Therefore, watch for the signs of infection listed below. Follow-up care Follow up with your health care provider as advised. Stitches should be removed from the face within5 days. Stitches and vanna should be removed from other parts of the body within 7-14 days. If dissolving stitches were used in the mouth, these will fall out or dissolve without the need for removal. If tape closures were used, remove them yourself if they have not fallen off after 7 days. If??skinglue was used, the film will fall off by itself in 5-10 days. Notify your healthcare provider if younotice persistent numbness or weakness in the injured hand. When to seek medical advice Call your health care provider right away??if any of these occur: ?? Wound bleeds more than a small amount or bleeding doesn't stop ?? Signs of infection: ?? Increasing pain in the wound ?? Increasing wound redness or swelling ?? Pus or bad odor coming from the wound ?? Fever of??100.4??F (38.??C)??or as directed by your healthcare provider ?? Wound edges re-open ?? [id number] [employer]. [address] [place] [address]. All rights reserved. This information is not intended as a substitute for professional medical care. Always follow your healthcare professional's instructions. Discharge Instructions Laceration (Cut) You were seen today for a laceration (cut). Your doctor examined your laceration for any problems such a buried foreign body (like glass, a splinter, or gravel), or injury to blood vessels, tendons, and nerves. Your doctor may have also rinsed and/or scrubbed your laceration to help prevent an infection. Your laceration may have been closed with glue, vanna or sutures (stitches). It may not be possible to find all problems with your laceration on the first visit, and we can't always prevent infections. Antibiotics are only given when the benefit is more than the risk, and don'tprevent all infections. Some lacerations are too high risk to close, and are left open to heal. All l acerations, no matter how expertly repaired, will cause scarring. Return to the Emergency Department right away if: ??? You have more redness, swelling, pain, drainage (pus), a bad smell, or red streaking from your laceration. ??? You have a fever of 101oF or more. ??? You have bleeding that you can???t stop at home. If your cut starts to bleed, hold pressure on the bleeding area with a clean cloth or put pressure over the bandage. If the bleeding doesn???t stop after using constant pressure for 30 minutes, you should return to the Emergency Department for further treatment. ??? An area past the laceration is cool, pale, or blue compared with the other side, or has a slowerreturn of color when squeezed. ??? Your dressing seems too tight or starts to get uncomfortable or painful. ??? You have loss of normal function or use of an area, such as being unable to straighten or bend afinger normally. ??? You have a numb area past the laceration. Return to the Emergency Department or see your regular doctor if: ??? The laceration starts to come open. ??? You have something coming out of the cut or a feeling that there is something in the laceration. ??? Your wound will not heal, or keeps breaking open. There can always be glass, wood, dirt or otherthings in any wound. They won???t always show up, even on x- rays. If a wound doesn???t heal, this may be why, and it is important to follow- up with your regular doctor. Home Care: ??? Take your dressing off in 12 hours, or as instructed by your doctor, to check your laceration. Remove the dressing sooner if it seems too tight or painful, or if it is getting numb, tingly, or palepast the dressing. ??? Gently wash your laceration 2 times a day with clean cloth and soap. ??? It is okay to shower, but do not let the laceration soak in water. ??? If your laceration was closed with wound adhesive or strips: pat it dry and leave it open to theair. ??? For all other repairs: after you wash your laceration, or at least 2 times a day, apply bacitracin or other antibiotic ointment to the laceration, then cover it with a Band-Aid?? or gauze. ??? Keep the laceration clean. Wear gloves or other protective clothing if you are around dirt. Follow-up: ??? You need to follow-up with your regular doctor in 2-3 days.. Scars: To help minimize scarring: ??? Wear sunscreen over the healed laceration when out in the sun. ??? Massage the area regularly. ??? You may use Vitamin E oil. ??? Wait a year. Most scars will start to fade within a year. Probiotics: If you have been given an antibiotic, you may want to also take a probiotic pill or eat yogurt with live cultures. Probiotics have good bacteria to help your intestines stay healthy. Studies have shown that probiotics help prevent diarrhea and other intestine problems (including C. diff infection) when you take antibiotics. You can buy these without a prescription in the pharmacy section of the store. If you were given a prescription for medicine here today, be sure to read all of the information (including the package insert) that comes with your prescription. This will include important information about the medicine, its side effects, and any warnings that you need to know about. The pharmacist who fills the prescription can provide more information and answer questions you may have about the medicine. If you have questions or concerns that the pharmacist cannot address, please call or return to the Emergency Department. Opioid Medication Information Pain medications are among the most commonly prescribed medicines, so we are including this information for all our patients. If you did not receive pain medication or get a prescription for pain medicine, you can ignore it. You may have been given a prescription for an opioid (narcotic) pain medicine and/or have received apain medicine while here in the Emergency Department. These medicines can make you drowsy or impaired. You must not drive, operate dangerous equipment, or engage in any other dangerous activities whiletaking these medications. If you drive while taking these medications, you could be arrested for DUI, or driving under the influence. Do not drink any alcohol while you are taking these medications. Opioid pain medications can cause addiction. If you have a history of chemical dependency of any type, you are at a higher risk of becoming addicted to pain medications. Only take these prescribed medications to treat your pain when all other options have been tried. Take it for as short a time and asfew doses as possible. Store your pain pills in a secure place, as they are frequently stolen and provide a dangerous opportunity for children or visitors in your house to start abusing these powerful medications. We will not replace any lost or stolen medicine. As soon as your pain is better, you should flush all your remaining medication. Many prescription pain medications contain Tylenol?? (acetaminophen), including Vicodin??, Tylenol #3??, [place]??, Lortab??, and Percocet??. You should not take any extra pills of Tylenol?? if you are using these prescription medications or you can get very sick. Do not ever take more than 3000 mg of acetaminophen in any 24 hour period. All opioids tend to cause constipation. Drink plenty of water and eat foods that have a lot of fiber, such as fruits, vegetables, prune juice, apple juice and high fiber cereal. Take a laxative if you don???t move your bowels at least every other day. Miralax??, Milk of Magnesia, Colace??, or Senna?? can be used to keep you regular. Remember that you can always come back to the Emergency Department if you are not able to see your regular doctor in the amount of time listed above, if you get any new symptoms, or if there is anything that worries you. Discharge Instructions Head Injury You have been seen today for a head injury. You were checked for serious problems, like bleeding on the brain, but these problems cannot always be found right away. Due to this risk, you should not be alone for 24 hours after your injury. Follow up with your regular physician in 2-3 days. If you are taking a blood thinner, such as aspirin, Pradaxa?? (dabigatran), Coumadin?? (warfarin), or Plavix?? (clopidogrel), you are at especially high risk for immediate or delayed bleeding, and need to re-check with a physician in 24 hours, or sooner if any of the symptoms below happen. Return to the Emergency Department if: ??? You are confused, have amnesia, or you are not acting right. ??? Your headache gets worse or you start to have a really bad headache even with your recommended treatment plan. ??? You vomit more than once. ??? You have a convulsion or seizure. ??? You have trouble walking. ??? You have weakness or paralysis in an arm or a leg. ??? You have blood or fluid coming from your ears or nose. ??? You have new symptoms or anything that worries you. Sleeping: It is okay for you to sleep, but someone should wake you up as instructed by your doctor, and someone should check on you at your usual time to wake up. Activity: ??? Do not drive for at least 24 hours. ??? Do not drive if you have dizzy spells or trouble concentrating, or remembering things. ??? Do not return to any contact sports until cleared by your regular doctor. Follow-up: It is very important that you make an appointment with your clinic and go to the appointment. If you do not follow-up with your regular doctor, it may result in missing an important development which could result in permanent injury or disability and/or lasting pain. If there is any problemkeeping your appointment, call your doctor or return to the Emergency Department. MORE INFORMATION: Concussion: A concussion is a minor head injury that may cause temporary problems with the way your brain works. Some symptoms include: confusion, amnesia, nausea and vomiting, dizziness, fatigue, memory or concentration problems, irritability and sleep problems. CT Scans: Your evaluation today may have included a CT scan (CAT scan) to look for things like bleeding or a skull fracture (break). CT scans involve radiation and too many CT scans can cause serious health problems like cancer, especially in children. Because of this, your doctor may not have ordereda CT scan today if they think you are at low risk for a serious or life threatening problem. If you were given a prescription for medicine here today, be sure to read all of the information (including the package insert) that comes with your prescription. This will include important information about the medicine, its side effects, and any warnings that you need to know about. The pharmacist who fills the prescription can provide more information and answer questions you may have about the medicine. If you have questions or concerns that the pharmacist cannot address, please call or return to the Emergency Department. Opioid Medication Information Pain medications are among the most commonly prescribed medicines, so we are including this information for all our patients. If you did not receive pain medication or get a prescription for pain medicine, you can ignore it. You may have been given a prescription for an opioid (narcotic) pain medicine and/or have received apain medicine while here in the Emergency Department. These medicines can make you drowsy or impaired. You must not drive, operate dangerous equipment, or engage in any other dangerous activities whiletaking these medications. If you drive while taking these medications, you could be arrested for DUI, or driving under the influence. Do not drink any alcohol while you are taking these medications. Opioid pain medications can cause addiction. If you have a history of chemical dependency of any type, you are at a higher risk of becoming addicted to pain medications. Only take these prescribed medications to treat your pain when all other options have been tried. Take it for as short a time and asfew doses as possible. Store your pain pills in a secure place, as they are frequently stolen and provide a dangerous opportunity for children or visitors in your house to start abusing these powerful medications. We will not replace any lost or stolen medicine. As soon as your pain is better, you should flush all your remaining medication. Many prescription pain medications contain Tylenol?? (acetaminophen), including Vicodin??, Tylenol #3??, [place]??, Lortab??, and Percocet??. You should not take any extra pills of Tylenol?? if you are using these prescription medications or you can get very sick. Do not ever take more than 3000 mg of acetaminophen in any 24 hour period. All opioids tend to cause constipation. Drink plenty of water and eat foods that have a lot of fiber, such as fruits, vegetables, prune juice, apple juice and high fiber cereal. Take a laxative if you don???t move your bowels at least every other day. Miralax??, Milk of Magnesia, Colace??, or Senna?? can be used to keep you regular. Remember that you can always come back to the Emergency Department if you are not able to see your regular doctor in the amount of time listed above, if you get any new symptoms, or if there is anything that worries you. documented in this encounter Medications at Time of Discharge Medication Sig Dispensed Refills Start Date End Date aspirin 81 MG tablet Take 81 mg by 0 0 09/22/2019 mouth daily atenolol-chlorthalidone Take 1 tablet by 90 tablet 1 201602/09/2017 (TENORETIC) 50-25 MG per mouth daily tabletIndications: Essential hypertension with goal blood pressure less than 140/90 CALCIUM CARBONATE PO Take 2,400 mg by 0 09/22/2019 mouth daily Cholecalciferol (VITAMIN D3 Take 2,000 Units 0 09/22/2019 PO) by mouth daily Coenzyme Q10 (CO Q 10 PO) Take 100 mg by 0 09/22/2019 mouth 2 times daily FOLIC ACID PO Take 1 mg by mouth 0 daily Ginkgo Biloba 40 MG TABS Take 120 mg by 0 09/22/2019 mouth daily Multiple Vitamins-Minerals Take 1 tablet by 0 09/22/2019 (OCUVITE PO) mouth daily Sharples-3 Fatty Acids Take 2.4 g by 0 (OMEGA-3 FISH OIL PO) mouth daily simvastatin (ZOCOR) 20 MG Take 1 tablet (20 90 tablet 1 05/201610/01/2016 tabletIndications: Mixed mg) by mouth At hyperlipidemia Bedtime vitamin E (VITAMIN E) 200 Take 400 Units by 0 09/22/2019 UNIT capsule mouth daily documented as of this encounter ED Notes Paulina Pepe RN - 05/26/2016 11:00 AM CDT Lac above left eye struck on door, unsure of last tetanus. A/ox 3. Marry Song MD - 05/26/2016 10:56 AM CDT History Chief Complaint: Laceration HPI Amie Scott is a 56 year old female who presents to the ED for evaluation of a laceration. 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 She did not lose consciousness or sustain any other injury. She presents to the ED due to concernthat the wound may require repair. She has had some minor lightheadedness but no significant headache, numbness, weakness, or visual disturbance. She is not currently anticoagulated. Her tetanus statusis up to date. Allergies: NKDA Medications: atenolol-chlorthalidone (TENORETIC) 50-25 MG per tablet simvastatin (ZOCOR) 20 MG tablet vitamin E (VITAMIN E) 200 UNIT capsule FOLIC ACID PO aspirin 81 MG tablet Cholecalciferol (VITAMIN D3 PO) Sharples-3 Fatty Acids (OMEGA-3 FISH OIL PO) Coenzyme Q10 (CO Q 10 PO) Ginkgo Biloba 40 MG TABS Multiple Vitamins-Minerals (OCUVITE PO) CALCIUM CARBONATE PO Past Medical History: Hypertension Hyperlipidemia Asthma Cataract Past Surgical History: Laparoscopy by OBGYN Cholecystectomy Colonoscopy Family History: Allergies - Brother CAD - Father, brother, and sister Diabetes - Brother Aneurysm - Brother Cancer, ovarian - Sister Cancer, breast - Sister MS - Sister Macular degeneration - Mother Social History: Marital status: Immunization status: Tetanus status up to date Accompanied to ED by: Alone Review of Systems Eyes: Negative for visual disturbance. Skin: Positive for wound (left forehead ). Neurological: Positive for light-headedness. Negative for syncope, weakness, numbness and headaches. All other systems reviewed and are negative. Physical Exam First Vitals: BP: (!) 136/95 Pulse: 68 Temp: 98.6 ??F (37 ??C) Resp: 16 SpO2: 100 % Physical Exam General: Well-nourished, appears to be uncomfortable when I enter the room Eyes: PERRL, conjunctivae pink no scleral icterus or conjunctival injection ENT: Moist mucus membranes, posterior oropharynx clear without erythema or exudates. No hyphema. No orbital crepitus. Respiratory: Lungs clear to auscultation bilaterally, no crackles/rubs/wheezes. Good air movement CV: Normal rate and rhythm, no murmurs/rubs/gallops GI: Abdomen soft and non-distended. Normoactive BS. No tenderness, guarding or rebound Skin: Warm, dry. No rashes or petechiae. 1.0 cm long nongaping shallow laceration above left eyebrowover forehead. Musculoskeletal: No peripheral edema or calf tenderness Neuro: Alert and oriented to person/place/time. PERRL, EOMI no nystagmus, no aphasia/facial droop/dysarthria, tongue midline, symmetric palatal elevation, normal strength at SCM/trapezius/BUE/BLE, normal coordination to FNF at BUE, normal casual gait, negative romberg, sensation intact to LT over face/BUE/BLE Psychiatric: Normal affect Emergency Department Course Procedures: Narrative: Procedure: Laceration Repair LACERATION: A simple clean 1 cm laceration. LOCATION: Left forehead FUNCTION: Distally sensation and circulation are intact. PREPARATION: Irrigation with Normal Saline and Shur Clens DEBRIDEMENT: no debridement CLOSURE: Wound was closed with Dermabond Emergency Department Course: Nursing notes and vitals reviewed. 1116: I performed an exam of the patient as documented above. 1137: A laceration repair was performed as outlined in the procedure note above. The patient tolerated well and there were no complications. Findings and plan explained to the Patient. Patient discharged home with instructions regarding supportive care, medications, and reasons to return. The importance of close follow-up was reviewed. Impression & Plan Medical Decision Making: Amie Scott is a 56 year old female presented with a forehead laceration. No red flags and a benign mechanism so there is no indication for CT brain imaging. Tetanus was already up to date. The wound was carefully evaluated and explored. The laceration was closed with dermabond as noted herein. There is no evidence of bony damage with this laceration. Possible complications (infection, scarring) were reviewed with the patient's mom. I also discussed signs of infection including redness, warmth, foul-smelling drainage and worsening pain and instructed the patient to return promptly to the ER forre-evaluation should any of these develop. Diagnosis: ICD-10-CM 1. Laceration of forehead, initial encounter S01.81XA 2. Closed head injury, initial encounter S09.90XA Disposition: Discharged to home. Qamar Romero, am serving as a scribe at 11:16 AM on 05/26/2016 to document services personally performed by Dr. Song, based on my observations and the provider's statements to me. [facility] Marry Song MD 05/26/16 1632 documented in this encounter Plan of Treatment Not on filedocumented as of this encounter Visit Diagnoses Diagnosis Laceration of forehead, initial encounte r Closed head injury, initial encounter documented in this encounter Care Teams Nascar Racer Relationship Specialty Start Date End Date Kleber Ledesma, PCP - General Physician Geriatrics Physician - 05/15/14 [facility] documented as of this encounter
--- OUTSIDE RECORDS SUMMARY | 2022-01-05 11:37 | XMS_ITS | Encounter Summary ---
:1960 Author Organization [facility] Address [address] [place] [address]. [place] [address] Care Team Providers Name Role Phone Kleber Ledesma PA-C Primary Care Provider [phone] Reason for Visit Reason Onset Date Comments Medication Request 03/10/2016 Tamiflu Encounter Details Date Type Department Care Team Description 03/10/2016 Telephone [facility] Kleber Ledesma Medicjonelle tion Request Clinic [facility] RACHNA Valderrama (Tamiflu) [address] [place] [address] [place], [place] [phone] (Wo rk) [phone] [phone] Social History Tobacco Use Types Packs/Day Years [...] Notes Telephone Encounter - Cherrie Mcknight - 03/11/2016 2:06 PM BANK REPRESENTATIVE Spoke with , he will inform pt. Kishan Mcknight Tick Eradicator REPRESENTATIVE Telephone Encounter - Jose M Rees MD - 03/11/2016 1:05 PM BANK REPRESENTATIVE Rx signed Jose M Rees MD REPRESENTATIVE Telephone Encounter - Deisy Elizabeth RN - 03/11/2016 8:[address] Rees, Can you please approve this? Thank you, Deisy Elizabeth RN REPRESENTATIVE Telephone Encounter - Betty Pearson - 03/10/2016 6:16 PM CST Patient called to request Tamaflu. 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 Cell # is [phone] H# [phone] Jonelle Pearson/ANIL REPRESENTATIVE documented in this encounter Plan of Treatment Not on filedocumented as of this encounter Visit Diagnoses Diagnosis Exposure to the flu - Primary Contact with or exposure to other viral diseases documented in this encounter Care Teams Vice President Business Development Relationship Specialty Start Date End Date Kleber Ledesma, PCP - General Physician Pilot Teacher - 05/15/14 PA-C Medical documented as of this encounter
--- OUTSIDE RECORDS SUMMARY | 2022-01-05 11:37 | XMS_ITS | Encounter Summary ---
:1960 Author Organization [place] Address [address] [facility] [place] [address] Care Team Providers Name Role Phone Kleber Ledesma PA-C Primary Care Provider [phone] Reason for Visit Reason Comments Urgent Care Cough pt is here for a cough that she has now had for about 3 weeks and is not getting any better. Encounter Details Date Type Department Care Team Description 01/25/2016 Office Visit [facility] Xin Vang Acute br onchitis with Urgent Care Kavitha Garces MD symptoms > [id number] (Primary Dx) [place] [id number] Social History Tobacco Use Types Packs/Day [...] Reading Time Taken Comments Blood Pressure 120/80 01/25/2016 10:33 AM ADZING AND BORING MACHINE HELPER Pulse 64 01/25/2016 10:33 AM ADZING AND BORING MACHINE HELPER Temperature 36.8 ??C (98.2 ??F) 01/25/2016 10:33 AM ADZING AND BORING MACHINE HELPER Respiratory Rate 14 01/25/2016 10:33 AM ADZING AND BORING MACHINE HELPER Oxygen Saturation 98% 01/25/2016 10:33 AM ADZING AND BORING MACHINE HELPER Inhaled Oxygen Concentration - - Weight 63.5 kg (140 lb) 01/25/2016 10:33 AM ADZING AND BORING MACHINE HELPER Height - - Body Mass Index 25.61 02/19/2015 5:37 PM ADZING AND BORING MACHINE HELPER documented in this encounter Patient Instructions Patient Xin Hall MD - 01/25/2016 10:44 AM CST Images from the original note were not included. Acute Bronchitis Your healthcare provider has told you that you have acute bronchitis. Bronchitis is infection or inflammation of the bronchial tubes (airways in the lungs). Normally, air moves easily in and out of theairways. Bronchitis narrows the airways, making it harder for air to flow in and out of the lungs. This causes symptoms such as shortness of breath, coughing, and wheezing. Bronchitis can be ???acute?? or ???chronic.?? Acute means the condition comes on quickly and goes away in a short time. Chronicmeans a condition lasts a long time and often comes back. Read on to learn more about acute bronchitis. What causes acute bronchitis? Acute bronchitis almost always starts as a viral respiratory infection, such as a cold or the flu. Certain factors make it more likely for a cold or flu to turn into bronchitis. These include being very young or very old or having a heart or lung problem. Cigarette smoking also makes bronchitis more likely. When bronchitis develops, the airways become swollen. The airways may also become infected with bacteria. This is known as a secondary infection. Diagnosing acute bronchitis Your healthcare provider will examine you and ask about your symptoms and health history. You may also have a sputum culture to test the fluid in your lungs. Chest X-rays may be done to look for infection in the lungs. Treating acute bronchitis Bronchitis usually clears up as the cold or flu goes away. You can help feel better faster by doing the following: ?? Take medicine as directed. You may be told to take ibuprofen or other ptkb-zmr-egsohvw medicines.These help relieve inflammation in your bronchial tubes. Your doctor may prescribe an inhaler to help open up the bronchial tubes. Most of the time,??acute bronchitis??is caused by a viral infection. Antibiotics are usually not prescribed for viral infections. ?? Drink plenty of fluids, such as water, juice, or warm soup. Fluids loosen mucus so that you can cough it up. This helps you breathe more easily. Fluids also prevent dehydration. ?? Make sure you get plenty of rest. ?? Do not smoke. Do not allow anyone else to smoke in your home. Recovery and follow-up Follow up with your doctor as you are told. You will likely feel better in a week or two. But a dry cough can linger beyond that time. Let your doctor know if you still have symptoms (other than a dry cough) after 2 weeks. If you???re prone to getting bronchial infections, let your doctor know. And take steps to protect yourself from future infections. These steps include stopping smoking and avoiding tobacco smoke, washing your hands often, and getting a yearly flu shot. When to call the doctor Call the doctor if you have any of the following: ?? Fever of 100.4??F (38.0??C) higher ?? Symptoms that get worse, or new symptoms ?? Trouble breathing ?? Symptoms that don???t start to improve within a week, or within 3 days of taking antibiotics ?? [id number] [employer]. [address] [place] [address]. All rights reserved. This information is not intended as a substitute for professional medical care. Always follow your healthcare professional's instructions. Bronchitis, Antibiotic Treatment??(Adult) Bronchitis is an infection of the air passages (bronchial tubes) in your lungs. It often occurs whenyou have a cold.??This illness is contagious during the first few days and is spread through the airby coughing and sneezing, or by direct contact (touching the sick person and then touching your own eyes, nose, or mouth). Symptoms of bronchitis include cough with mucus (phlegm) and low-grade fever. Bronchitis usually lasts 7 to 14 days. Mild cases can be treated with simple home remedies. More severe infection is treated with an antibiotic. Home care Follow these guidelines when caring for yourself at home: ?? If your symptoms are severe, rest at home for the first 2 to 3 days. When you go back to your usual activities, don't let yourself get too tired. ?? Do not smoke. Also avoid being exposed to secondhand smoke. ?? You may use??itlj-dsj-afgonow medicines to control fever or pain, unless another medicine was prescribed.??(Note: If you have chronic liver or kidney disease or have ever had a stomach ulcer or gastrointestinal bleeding, talk with your healthcare provider before using these medicines. Also talk to your provider if you are taking medicine to prevent blood clots.) Aspirin should never be given to anyone younger than 18 years of age who is ill with a viral infection or fever. It may cause severe liver or brain damage. ?? Your appetite may be poor, so a light diet is fine. Avoid dehydration by drinking 6 to 8 glasses of fluids per day (such as water,??soft drinks,??sports drinks, juices, tea, or soup). Extra fluids will help loosen secretions in the nose and lungs. ?? Ltyw-dqg-jkncson cough,??cold,??and sore-throat??medicines will not shorten the length of the illness, but they may be helpful??to reduce symptoms.??(Note: Do not use decongestants if you have high blood pressure.) ?? Finish all antibiotic medicine. Do this even if you are feeling better after only a few days. Follow-up care Follow up with your healthcare provider, or as advised. If you had an X-ray??or ECG (electrocardiogram), a??specialist will review it. You will be notified of any new findings that may affect your care. Note: If you are age 65 or older, or if you have??a chronic lung disease or condition that affects your immune system, or you smoke, talk to your healthcare provider about having pneumococcal vaccinations??and a yearly influenza??vaccination??(flu shot). When to seek medical advice Call your healthcare provider right away if any of these occur: ?? Fever of 100.4??F (38??C) or higher ?? Coughing up??increased amounts of colored sputum ?? Weakness, drowsiness, headache, facial pain, ear pain, or a stiff neck?? Call 911, or get immediate medical care Contact emergency services right away if any of these occur. ?? Coughing up blood ?? Worsening weakness, drowsiness, headache, or stiff neck ?? Trouble breathing, wheezing, or pain with breathing ?? [id number] [employer]. [address] [place] [address], [place] [address]. All rights reserved. This information is not intended as a substitute for professional medical care. Always follow your healthcare professional's instructions. NG AND BORING MACHINE HELPER documented in this encounter Progress Notes Xin Vang MD - 01/25/2016 11:02 AM CST SUBJECTIVE: Chief Complaint Patient presents with ??? Urgent Care ??? Cough pt is here for a cough that she has now had for about 3 weeks and is not getting any better. Amie Scott is a 55 year old female who presents to the clinic today with a chief complaint of cough and chest tightness for 3 week(s). Patient denies shortness of breath., central chest pain., pleuritic chest pain and wheezing. Her cough is described as persistent, daytime, nightime and productive of yellow sputum. The patient's symptoms are moderate and not changing over the course of time. Associated symptoms include fever,nasal congestion, rhinorrhea, malaise and headache. The patient's symptoms are exacerbated by exercise Patient has been using OTC cough suppressants to improve symptoms. Past Medical History Diagnosis Date ??? Hypertension ??? High cholesterol ??? Chest discomfort ??? Moderate persistent asthma 2004 cold air trigger ALLERGIES: No known drug allergies Current Outpatient Prescriptions on File Prior to Visit: naproxen (NAPROSYN) 500 MG tablet Take 1 tablet (500 mg) by mouth 2 times daily (with meals) cyclobenzaprine (FLEXERIL) 5 MG tablet Take 0.5-1 tablets (2.5-5 mg) by mouth At Bedtime vitamin E (VITAMIN E) 200 UNIT capsule Take 400 Units by mouth daily atenolol-chlorthalidone (TENORETIC) 50-25 MG per tablet Take 1 tablet by mouth daily simvastatin (ZOCOR) 20 MG tablet Take 1 tablet (20 mg) by mouth At Bedtime FLUoxetine (PROZAC) 10 MG capsule Take 1 capsule (10 mg) by mouth daily FOLIC ACID PO Take 1 mg by mouth daily aspirin 81 MG tablet Take 81 mg by mouth daily Cholecalciferol (VITAMIN D3 PO) Take 2,000 Units by mouth daily [place]-3 Fatty Acids (OMEGA-3 FISH OIL PO) Take 2.4 g by mouth daily Coenzyme Q10 (CO Q 10 PO) Take 100 mg by mouth 2 times daily Ginkgo Biloba 40 MG TABS Take 120 mg by mouth daily Multiple Vitamins-Minerals (OCUVITE PO) Take 1 tablet by mouth daily CALCIUM CARBONATE PO Take 2,400 mg by mouth daily No current facility-administered medications on file prior to visit. Social History Substance Use Topics ??? Smoking status: Former Smoker ??? Smokeless tobacco: Never Used Comment: quit smoking at 21 yrs old. smoked 2 to 21/2 ppd ??? Alcohol Use: 1.2 oz/week 1 Glasses of wine, 1 Shots of liquor per week Family History Problem Relation Age of Onset [...] Mother ??? Colon Cancer Maternal Grandmother 70 ROS INTEGUMENTARY/SKIN: NEGATIVE for worrisome rashes, moles or lesions EYES: NEGATIVE for vision changes or irritation GI: NEGATIVE for nausea, abdominal pain, heartburn, or change in bowel habits OBJECTIVE: BP 120/80 mmHg Pulse 64 Temp(Src) 98.2 ??F (36.8 ??C) (Oral) Resp 14 Wt 140 lb (63.504 kg) SpO2 98% LMP 02/22/2010 GENERAL APPEARANCE: alert, mild distress and cooperative EYES: EOMI, PERRL, conjunctiva clear HENT: ear canals and TM's normal. Nose and mouth without ulcers, erythema or lesions NECK: supple, nontender, no lymphadenopathy RESP: lungs clear to auscultation - no rales, rhonchi or wheezes CV: regular rates and rhythm, normal S1 S2, no murmur noted NEURO: Normal strength and tone, sensory exam grossly normal, normal speech and mentation SKIN: no suspicious lesions or rashes ASSESSMENT: Acute bronchitis with symptoms > 10 days - doxycycline (VIBRAMYCIN) 100 MG capsule; Take 1 capsule (100 mg) by mouth 2 times daily for 10 days - albuterol (PROAIR HFA/PROVENTIL HFA/VENTOLIN HFA) 108 (90 BASE) MCG/ACT Inhaler; Inhale 1-2 puffs into the lungs every 4 hours as needed for shortness of breath / dyspnea or wheezing Symptomatic measures encouraged, humidified air, plenty of fluids. Patient may consider OTC expectorant and/or cough suppressant to treat symptoms. Return if worsening NG AND BORING MACHINE HELPER documented in this encounter Nursing Notes Janeen Ellis CMA - 01/25/2016 10:36 AM CST Amie Scott is a 55 year old female. Chief Complaint Patient presents with ??? Urgent Care ??? Cough pt is here for a cough that she has now had for about 3 weeks and is not getting any better. Initial BP 120/80 mmHg Pulse 64 Temp(Src) 98.2 ??F (36.8 ??C) (Oral) Resp 14 Wt 140 lb (63.504 kg) SpO2 98% LMP 02/22/2010 Estimated body mass index is 25.6 kg/(m^2) as calculated from the following: Height as of 02/19/15: 5' 2 (1.575 m). Weight as of this encounter: 140 lb (63.504 kg). BP completed using cuff size: regular Questioned patient about current smoking habits. Pt. quit smoking some time ago. Janeen Ellis CMA NG AND BORING MACHINE HELPER documented in this encounter Plan of Treatment Not on filedocumented as of this encounter Visit Diagnoses Diagnosis Acute bronchitis with symptoms > 10 days - Primary Acute bronchitis documented in this encounter Care Teams Supervisor Cellars Relationship Specialty Start Date End Date Kleber Ledesma, PCP - General Physician Yoga Coordinator - 05/15/14 PA-C Medical documented as of this encounter
--- OUTSIDE RECORDS SUMMARY | 2022-01-05 11:37 | XMS_ITS | Encounter Summary ---
:1960 Author Organization [facility] Address [address] [place] [address] Care Team Providers Name Role Phone Kleber Ledesma PA-C Primary Care Provider [phone] Encounter Details Date Type Department Care Team Description 11/04/2015 Orders Only M [facility] Mix ed hyperlipidemia (Primary Dx); [facility] Essential hypertension with goal blood pressure less than 140/90 [facility], [address] [place] [address] Social History Tobacco Use Types Packs/Day Years Used Date Smoking Tobacco: Former Smokeless Tobacco: Never Comments: quit smoking at 21 yrs old. sm oked 2 to 21/2 ppd Alcohol Use Standard Drinks/Week Comments Yes 2 (1 standard drink = 0.6 oz pure alcoho l) Sex Assigned at Date Recorded Not on file documented as of this encounter Progress Notes Rossi Nugent RN - 11/06/2015 9:48 AM CDT Quick Note: Letter sent Rossi Nugent RN documented in this encounter Plan of Treatment Not on filedocumented as of this encounter Procedures Procedure Name Priority Date/Time Associated Diagnosis Comme nts TSH WITH FREE T4 Routine 11/04/2015 11:58 Essential Results for this REFLEX AM CDT hypertension with procedure are in goal blood pressure the resu lts less than 140/90 section. LIPID REFLEX TO DIRECT Routine 11/04/2015 11:58 Essential R esults for this LDL PANEL AM CDT hypertension with procedure are in goal blood pressure the resu lts less than 140/90 section. COMPREHENSIVE Routine 11/04/2015 11:58 Mixed hyperlipi demia Results for this METABOLIC PANEL AM CDT Essential procedure ar e in hypertension with the result s goal blood pressure section. less than 140/90 CBC WITH PLATELETS Routine 11/04/2015 11:58 Essential Resul ts for this AM CDT hypertension with procedure are in goal blood pressure the resu lts less than 140/90 section. documented in this encounter Results CBC with platelets (11/04/2015 11:58 AM CDT) athologist Signature WBC 6.5 4.0 - 11.0 [place] 10e9/L [facility] RBC Count 4.94 3.8 - 5.2 [place] 10e12/L [facility] Hemoglobin 13.6 11.7 - [place] 15.7 g/dL [facility] Hematocrit 41.9 35.0 - [place] 47.0 % [facility] MCV 85 78 - 100 [place] fl [facility] MCH 27.5 26.5 - [place] 33.0 pg [facility] MCHC 32.5 31.5 - [place] 36.5 g/dL [facility] RDW 13.0 10.0 - [place] 15.0 % [facility] Platelet Count 264 150 - 450 [place] 10e9/L [facility] Specimen Anatomical Collection Method Collection Time Receive d Time (Source) Location / / Volume Laterality Blood specimen 11/04/2015 11:58 6 (specimen) AM CDT 11:59 AM CDT Kleber Ledesma PA-C LAB - BLOOD ORDERABLES Performing Organization Address City/State/ZIP Code Phon e Number [facility] [address] TSH with free T4 reflex (11/04/2015 11:58 AM CDT) athologist Signature TSH 1.92 0.40 - 4.00 [facility] mU/L [facility] Specimen Anatomical Collection Method Collection Time Receive d Time (Source) Location / / Volume Laterality Blood specimen 11/04/2015 11:58 6 (specimen) AM CDT 11:59 AM CDT Kleber Ledesma PA-C LAB - BLOOD ORDERABLES Performing Organization Address City/[facility]/ZIP Code Phon e Number [facility] [address] [place] [address] Comprehensive metabolic panel (11/04/2015 11:58 AM CDT) P athologist Signature Sodium 139 133 - 144 [place] mmol/L [facility] Potassium 3.8 3.4 - 5.3 [place] mmol/L [facility] Chloride 105 94 - 109 [place] mmol/L [facility] Carbon Dioxide 29 20 - 32 [place] mmol/L [facility] Anion Gap 5 3 - 14 [place] mmol/L [facility] Glucose 84 70 - 99 [place] mg/dL [facility] Urea Nitrogen 19 7 - 30 [place] mg/dL [facility] Creatinine 0.84 0.52 - [place] 1.04 mg/dL [facility] GFR Estimate 70 >60 [place] mL/min/1.7 CLINICS m2 [facility] Comment: Non GFR Calc GFR Estimate If Black 85 >60 mL/min/1.7m2 [facility] Comment: GFR Calc Calcium 9.0 8.5 - 10.1 mg/dL [place] CLIN ICS [facility] Bilirubin Total 0.4 0.2 - 1.3 mg/dL [facility] Albumin 4.1 3.4 - 5.0 g/dL [facility] S [facility] Protein Total 7.5 6.8 - 8.8 g/dL [place] [facility] Alkaline Phosphatase 62 40 - 150 U/L [facility] ALT 37 0 - 50 U/L [facility] AST 16 0 - 45 U/L [facility] Specimen Anatomical Collection Method Collection Time Receive d Time (Source) Location / / Volume Laterality Blood specimen 11/04/2015 11:58 6 (specimen) AM CDT 11:59 AM CDT Kleber Ledesma PA-C LAB - BLOOD ORDERABLES Performing Organization Address City/[facility]/ZIP Code Phon e Number [facility] [address] [place] [address] (ABNORMAL) Lipid panel reflex to direct LDL (11/04/2015 11:58 AM CDT) P athologist Signature Cholesterol 208 (H) <200 mg/dL [facility] Comment: Desirable: <200 mg/dl Triglycerides 135 <150 mg/dL [facility] S [facility] HDL Cholesterol 64 >49 mg/dL [place] [facility] LDL Cholesterol Calculated 117 (H) <100 mg/dL [facility] Comment: Above desirable: ??100-129 mg/dl Borderline High: ??130-159 mg/dL High: ? 160-189 mg/dL Very high: ? >189 mg/dl Non HDL Cholesterol 144 (H) <130 mg/dL [facility] Comment: Above Desirable: ??130-159 mg/dl Borderline high: ??160-189 mg/dl High: ? 190-219 mg/dl Very high: ? >219 mg/dl Specimen Anatomical Collection Method Collection Time Receive d Time (Source) Location / / Volume Laterality Blood specimen 11/04/2015 11:58 6 (specimen) AM CDT 11:59 AM CDT Kleber Ledesma PA-C LAB - BLOOD ORDERABLES Performing Organization Address City/State/ZIP Code Phon e Number [facility] [address] [place] [address] documented in this encounter Visit Diagnoses Diagnosis Mixed hyperlipidemia - Primary Essential hypertension with goal blood p ressure less than 140/90 documented in this encounter Care Teams Insulation Mechanic Relationship Specialty Start Date End Date Kleber Ledesma, PCP - General Physician Test And Balance Engineer - 05/15/14 RACHNA Medical documented as of this encounter
--- OUTSIDE RECORDS SUMMARY | 2022-01-05 11:37 | XMS_ITS | Encounter Summary ---
:1960 Author Organization [facility] Address [address] [place], [place] [address]. [place] [address] Care Team Providers Name Role Phone Kleber Ledesma PA-C Primary Care Provider [phone] Reason for Visit MARJORIE Physical Therapy (Routine) - Closed Specialty Diagnoses / Procedures Referred By Contact Refer red To Contact Physical Therapy Diagnoses WORK COMP cervicalgia /Dr. Kleber Ledesma @ [facility] DOI:10-15-15 Kleber Ledesma Hauger, Brian, PT Procedures SPINE INITIAL PA-Em[facility] [id number] [place], [place] [address] and PT. LUZMARIA TORRES [address] [place] [address] [place] [address] Phone: Fax: Referral ID Status Reason Start Date Expiration Date Visits V isits Requested Authorized MARJORIE/WC/PT/NECK Closed 11/06/2015 11/05/2016 10 Encounter Details Date Type Department Care Team Description 11/06/2015 Therapy Visit [facility] Denzel Coley, PT Cervical pain Rehabilitation Services [facility] (P umesh Dx) [facility] [address] [place], [place] [phone] Social History Tobacco Use Types Packs/Day Years Used Date Smoking Tobacco: Former Smokeless Tobacco: Never Comments: quit smoking at 21 yrs old. sm oked 2 to 21/2 ppd Alcohol Use Standard Drinks/Week Comments Yes 2 (1 standard drink = 0.6 oz pure alcoho l) Sex Assigned at Date Recorded Not on file documented as of this encounter Progress Notes Denzel Coley, PT - 11/06/2015 2:59 PM CDT Subjective: Amie Scott is a 55 year old female with a cervical spine condition. Condition occurred with: Lifting. Condition occurred: at work. This is a new condition Lifting a patient off the floor on Oct 15 2015. Patient reports that she is having pain around the base of the skull, upper trap area, levator on the right. Having a lot of GODDARD's (at least daily). Worse as the day goes on. Best the pain has been in the last week 2/10, worst in the last couple days 8/10. Worse: turning head, moving the head into certain positions, pushing, pulling, lifting. Better: nothing in particular. . Pain is described as aching, stabbing and sharp and is intermittent and reported as 4/10. Pain is the same all the time. Since onset symptoms are unchanged. General health as reported by patient is good. Pertinent medical history includes: High blood pressure and menopausal. Medical allergies: no. Cur rent medications: Muscle relaxants and high blood pressure medication. 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 Primary job tasks include: Prolonged standing and lifting. Barriers include: None as reported by the patient. Red flags: None as reported by the patient. Objective: System Cervical/Thoracic Evaluation Headaches: cervical Cervical Myotomes: normal DTR's: not assessed Cervical Dermatomes: normal Cervical Palpation: Tenderness present at Right: Sternocleidomstoid; Scalenes; Rhomboids; Upper Trap; Levator; Erector Spinae and Suboccipitals Cord Sign: normal Charlotte Cervical Evaluation Posture: Sitting: fair Standing: fair Protruding Head: yes Wry Neck: no Correction of Posture: no effect Movement Loss: Protrusion (PRO): nil Flexion (Flex): min and pain Retraction (RET): min Extension (EXT): mod, major and pain Lateral Flexion Right (LF R): min and pain Lateral Flexion Left (LF L): min and pain Rotation Right (ROT R): mod and pain Rotation Left (ROT L): min, mod and pain Test Movements: RET: During: produces After: no worse Mechanical Response: no effect Repeat RET: During: produces After: no worse Mechanical Response: IncROM LF R: During: produces After: no worse Mechanical Response: no effect Repeat LF R: During: produces After: no worse Mechanical Response: no effect ROS Assessment/Plan: Patient is a 55 year old female with cervical complaints. Patient has the following significant findings with corresponding treatment plan. Diagnosis 1: Right neck pain Pain - hot/cold therapy, US, mechanical traction, manual therapy, self management, education, directional preference exercise and home program Decreased ROM/flexibility - manual therapy, therapeutic exercise and home program Decreased function - therapeutic activities and home program Impaired posture - neuro re-education, therapeutic activities and home program Previous and current functional limitations: (See Goal Flow Sheet for this information) Short term and half-way goals: (See Goal Flow Sheet for this information) Communication ability: Patient appears to be able to clearly communicate and understand verbal and written communication and follow directions correctly. Treatment Explanation - The following has been discussed with the patient: RX ordered/plan of care Anticipated outcomes Possible risks and side effects This patient would benefit from PT intervention to resume normal activities. Rehab potential is excellent. Frequency: 2 X week, once daily Duration: for 5 weeks Discharge Plan: Achieve all LTG. Independent in home treatment program. Reach maximal therapeutic benefit. Please refer to the daily flowsheet for treatment today, total treatment time and time spent performing 1:1 timed codes. documented in this encounter Plan of Treatment Not on filedocumented as of this encounter Procedures Procedure Name Priority Date/Time Associated Diagnosis [facility] THERAPEUTIC Routine 11/06/2015 3:31 PM CDT Cervical pain EXERCISES documented in this encounter Visit Diagnoses Diagnosis Cervical pain - Primary Cervicalgia documented in this encounter Care Teams Link Trainer Relationship Specialty Start Date End Date Kleber Ledesma, PCP - General Physician Perinatal Tech - 05/15/14 PADeanneC Medical documented as of this encounter
--- OUTSIDE RECORDS SUMMARY | 2022-01-05 11:37 | XMS_ITS | Encounter Summary ---
:1960 Author Organization [facility] Address [facility] [place] [address] Care Team Providers Name Role Phone Kleber Ledesma PA-C Primary Care Provider [phone] Reason for Visit MARJORIE Physical Therapy (Routine) - Closed Specialty Diagnoses / Procedures Referred By Contact Refer red To Contact Physical Therapy Diagnoses WORK COMP cervicalgia /Dr. Kleber Ledesma @ [facility] DOI:10-15-15 Kleber Ledesma, Denzel Coley, PT Procedures SPINE INITIAL PA-C [facility] [id number] [address] and PT. LUZMARIA TORRES [address] [place] [address] [place] [address] Phone: Fax: Referral ID Status Reason Start Date Expiration Date Visits V isits Requested Authorized MARJORIE/WC/PT/NECK Closed 11/06/2015 11/05/2016 10 Encounter Details Date Type Department Care Team Description 01/16/2016 Therapy Visit [facility] Laurie Vicente P T Cervical pain Rehabilitation Services [facility] PRIMO RVIEW (Primary Dx) [address] [address] [address] [id number] Social History Tobacco Use Types Packs/Day [...] Name Priority Date/Time Associated Diagnosis Comme nts [facility] MANUAL THER Routine 01/16/2016 5:07 PM COTTRELL OPERATOR Cervical pain TECH,1+REGIONS,EA 15 MIN [facility] THERAPEUTIC Routine 01/16/2016 5:07 PM COTTRELL OPERATOR Cervical pain EXERCISES [facility] ULTRASOUND THERAPY Routine 01/16/2016 5:07 PM COTTRELL OPERATOR Cervical pain documented in this encounter Visit Diagnoses Diagnosis Cervical pain - Primary Cervicalgia documented in this encounter Care Teams Couture Dressmaker Relationship Specialty Start Date End Date Kleber Ledesma, PCP - General Physician Rayon Winder - 05/15/14 PADeanneC Medical documented as of this encounter
--- OUTSIDE RECORDS SUMMARY | 2022-01-05 11:37 | XMS_ITS | Encounter Summary ---
:1960 Author Organization [facility] Address [address] [place] [address]. [place] [address] Care Team Providers Name Role Phone Kleber Ledesma PA-C Primary Care Provider [phone] Reason for Visit Reason Onset Date Comments Patient Request 01/28/2016 Encounter Details Date Type Department Care Team Description 01/28/2016 Telephone [facility] Kleber Ledesma, Patient Request [place] RACHNA [address] [place] [address], [address] [place] [address] [place] [address] [place] [address] [phone] Social History Tobacco Use Types Packs/Day Years [...] Telephone Encounter - Deisy Elizabeth RN - 01/28/2016 1:03 PM CST Spoke with patient. Has had symptoms x 3 weeks. Seen in Urgent Care 4 days ago. Given antibiotics and inhaler and not feeling any better. Pain/discomfort in chest. Coughing. Advised to follow up with Kleber. Will come in for appointment. Deisy Elizabeth RN ITURE DIPPER Telephone Encounter - Bernie Koroma I - 01/28/2016 8:53 AM CST Patient called to state she was seen in urgent care on 01/25/16 and still isn't feeling well. Patient states she still has a cough. Patient would like to discuss her symptoms with a triage nurse. Patient did schedule an appointment for today at 3:00 to come in and see Kleber Ledesma. Patient would still like to talk to a RN before she comes into her appointment. Please call [phone]. Bernie Cullen/Household Coordinator ITURE DIPPER documented in this encounter Plan of Treatment Not on filedocumented as of this encounter Visit Diagnoses Not on filedocumented in this encounter Care Teams Operating Room Scheduler Relationship Specialty Start Date End Date Kleber Ledesma, PCP - General Physician Greeting Card Maker - 05/15/14 PA-C Medical documented as of this encounter
--- OUTSIDE RECORDS SUMMARY | 2022-01-05 11:37 | XMS_ITS | Encounter Summary ---
:1960 Author Organization [facility] Address [address] [place] [address]. [place] [address] Care Team Providers Name Role Phone Kleber Ledesma PA-C Primary Care Provider [phone] Reason for Visit Reason Comments RECHECK Encounter Details Date Type Department Care Team Description 12/23/2015 Office Visit [facility] Kleber Ledesma (Primary Clinic [place]) [address] [address] [facility], [address] [place], [place] [address] [place] [address] (Wo rk) [address] [phone] Social History Tobacco Use Types Packs/Day Years [...] Reading Time Taken Comments Blood Pressure 110/70 12/23/2015 10:02 AM CISCO CONSULTANT Pulse 76 12/23/2015 10:02 AM CISCO CONSULTANT Temperature 36.8 ??C (98.2 ??F) 12/23/2015 10:02 AM CISCO CONSULTANT Respiratory Rate - - Oxygen Saturation 98% 12/23/2015 10:02 AM CISCO CONSULTANT Inhaled Oxygen Concentration - - Weight 66.5 kg (146 lb 8 oz) 12/23/2015 10:02 AM CISCO CONSULTANT Height - - Body Mass Index 26.8 02/19/2015 5:37 PM CISCO CONSULTANT documented in this encounter Progress Notes Kleber Ledesma PA-C - 12/23/2015 9:56 AM CST SUBJECTIVE: Amie Scott is a 55 year old female who presents to clinic today for the following health issues: Pt is here for a w/c follow up - she feels better, then bad- depends on the day. So its an ongoing thing. States that she feels thesame. - the tingling in her left hand is better - not taking the Naproxen anymore, states that it made her feel sick and gave her headaches for 3 days Follow up work comp- neck pain ?? Duration: weeks ?? Description (location/character/radiation): right sided neck ?? Intensity: moderate ?? Accompanying signs and symptoms: ?? History (similar episodes/previous evaluation): None ?? Precipitating or alleviating factors: lifting, turning neck ?? Therapies tried and outcome: flexeril, advil, naproxen, physical therapy Amie is wondering today if she should have some time off work. It was fine with restrictions at work for her but it caused a few difficulties for her co- workers in general and she is feeling guilty about that. She has good days and bad days. 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 Job is demanding but not too much. She doesn't want to complain. Still some things even with restrictions that will increase the pain. Problem list and histories reviewed & adjusted, as indicated. Additional history: as documented Problem list, Medication list, Allergies, and Medical/Social/Surgical histories [facility] andupdated as appropriate. ROS: Constitutional, HEENT, cardiovascular, pulmonary, gi and gu systems are negative, except as otherwise noted. OBJECTIVE: BP 110/70 mmHg Pulse 76 Temp(Src) 98.2 ??F (36.8 ??C) (Oral) Wt 146 lb 8 oz (66.452 kg) TwA612% LMP 02/22/2010 Body mass index is 26.79 kg/(m^2). GENERAL: healthy, alert and no distress NECK: no adenopathy, no asymmetry, masses, or scars and thyroid normal to palpation MS: neck exam shows decreased ROM with TTP along right SCM muscles and trapezius muscles. SKIN: no suspicious lesions or rashes NEURO: Normal strength and tone, mentation intact and speech normal PSYCH: mentation appears normal, affect normal/bright Diagnostic Test Results: none ASSESSMENT/PLAN: 1. Cervicalgia - continue with flexeril as needed. She will try naproxen again to see if same effect. If so, returnto OTC ibuprofen as needed. Note for off work for one week to rest the neck. Exercises, ice/heat recommended. Follow up one week. Kleber Ledesma PA-C [facility] O CONSULTANT documented in this encounter Nursing Notes Meredith Garcia - 12/23/2015 10:03 AM CST Chief Complaint Patient presents with ??? RECHECK Initial BP 110/70 mmHg Pulse 76 Temp(Src) 98.2 ??F (36.8 ??C) (Oral) Wt 146 lb 8 oz (66.452 kg) SpO2 98% LMP 02/22/2010 Estimated body mass index is 26.79 kg/(m^2) as calculated from the following: Height as of 16: 5' 2 (1.575 m). Weight as of this encounter: 146 lb 8 oz (66.452 kg). BP completed using cuff size: regular Meredith Garcia MA O CONSULTANT documented in this encounter Plan of Treatment Not on filedocumented as of this encounter Visit Diagnoses Diagnosis Cervicalgia - Primary documented in this encounter Care Teams Facility Technician Relationship Specialty Start Date End Date Kleber Ledesma, PCP - General Physician Chief Relay Tester - 05/15/14 RACHNA Medical documented as of this encounter
--- OUTSIDE RECORDS SUMMARY | 2022-01-05 11:37 | XMS_ITS | Encounter Summary ---
:1960 Author Organization [facility] Address [address] [place] [address] Care Team Providers Name Role Phone Kleber Ledesma PA-C Primary Care Provider [phone] Reason for Visit Reason Comments Foot Problems R foot pain x 2-3 weeks, on feet all day at work Encounter Details Date Type Department Care Team Description 03/17/2016 [facility] Visit [facility] Jim Burden's n euroma of right foot (Primary Dx); [facility] [place] BEN Schmitt Capsulitis of right foot; Podiatry [address] [place] Muscle strain of foot, right , initial encounter [address] [place] [address] [phone] (Wo rk) Social History Tobacco Use Types [...] Taken Comments Blood Pressure - - Pulse - - Temperature - - Respiratory Rate - - Oxygen Saturation - - Inhaled Oxygen Concentration - - Weight 65.8 kg (145 lb) 03/17/2016 3:37 PM BOARD CERTIFIED ARTS THERAPIST Height 157.5 cm (5' 2) 03/17/2016 3:37 PM BOARD CERTIFIED ARTS THERAPIST Body Mass Index 26.52 03/17/2016 3:37 PM BOARD CERTIFIED ARTS THERAPIST documented in this encounter Patient Instructions Patient InstructionsParadise Salamanca - 03/17/2016 4:14 PM CST Follow Up - [address] [facility] Locations: Wednesday [facility] [address] [facility] [address] [facility], [address] [place] [address] [place], [place] [id number] Wednesday: Surgery Day Surgery Scheduling Line - [phone] Morning Afternoon [facility] [address] [facility], [address] [place] [address] [place], [place] [address] Wednesday To Schedule an Appointment [facility] Call: [phone] [address] [place] [address] PLEASE FAX ALL FORMS TO: [phone] YOU Therapy Many aches and pains throughout the foot and ankle can be helped with many simple treatments. This is usually described as YOU Therapy. P - Protection - often times, inflammation/pain in the lower extremity is not able to improve simplybecause the areas involved are never allowed to rest. Every step we take can bother the problematic area. Protecting those areas is an important step in the healing process. This may involve a walking cast boot, a special insert/orthotic device, an ankle brace, or simply avoiding barefoot walking. R - Rest - in addition to protecting the foot/ankle, resting is an important, but often times difficult, treatment option. Getting off your feet when they bother you, and specifically avoiding activities that cause pain/discomfort, are very beneficial to prevent, and treat, foot/ankle pain. I - Ice - icing regularly can help to decrease inflammation and swelling in the foot, thus decreasing pain. Using an ice pack or a bag of frozen peas works very well. Ice for 20 minutes multiple times per day as needed. Do not place the ice directly on the skin as this can cause tissue damage. C - Compression - using a compression wrap or an MIMA wrap can help to decrease swelling, which can help to decrease pain. Wearing the wraps is generally not needed at night, but they should be worn on a regular basis when you are going to be on your feet for prolonged periods as gravity tends to pull fluids down to your feet/ankles. E - Elevation - elevating your lower extremities multiple times daily for 15-20 minutes can help to decrease swelling, which works well in decreasing pain levels. NSAID/Tylenol - An anti-inflammatory, like Aleve or ibuprofen, and/or a pain medication, such as Tylenol, can help to improve pain levels and get the issue resolved sooner rather than later. Anyone with liver issues should be careful with Tylenol, and anyone with high blood pressure or heart, stomach or kidney issues should be careful with anti-inflammatories. Please ask if you have questions about these medications, including dosage. Over the Counter Inserts Super Feet are the most common and easiest to find. Locations include any [employer], [employer] in [place] on [address] [place] [address] and in [place] on [address], [employer] in [facility] on [facility], [facility] Running Room in [facility] on [facility], [facility] Running Room in [place] on [address] [facility] [address] [facility] [address], [employer] in [place] on [address] and [employer] in [facility] on [place] and in [place] on [facility]. Sofsole Fit can be found at [employer] in [place]. You can also find them online at Element [employer] Spenco can be found online and at [employer] in [facility] on [address], [employer] in [facility] on [address], Gear Running Store in [place] on [address], [employer] in [place] on [address] [facility] and [employer] in [place] on [address]. Power Step can be a little harder to find. Locations include [employer] in [place] on [address], [place] in [facility], [employer] Store in [place] on [address] and online Walk-Fit - [facility] A good high quality over the counter insert can cost around $40-$50. Shoe Recommendations: Athletic Shoe Brands: Asics, New Balance, Saucony and Gonzalez Casual Shoe Brands: Nacho, Cielo, Alvarado and Tammy CROUCH'S NEUROMA What is a Crouch's Neuroma? Crouch's neuroma is an enlargement or thickening of a nerve in the foot. It is also sometimes referred to as an intermetatarsal neuroma, interdigital neuroma, Crouch's metatarsalgia (pain in the metatarsal head area), jeana-neural fibrosis (scar tissue around a nerve) or entrapment neuropathy (abnormalnerve due to compression). A Crouch's neuroma most commonly occurs in the third interspace between the third and fourth toes, followed by the second interspace between the second and third toes. Crouch's neuromas have also occurred in the fourth and first interspaces, but these are rare. If you have aMorton's neuroma, there is a 15% chance it will occur bilaterally (on both feet). Crouch's neuromas occur most commonly in women who are between 30 to 50 years old. The reason they are more common in women is thought to be due to the shoes women wear. What Causes a Crouch's Neuroma? A Crouch's neuroma is thought to be caused by trauma to the nerve, but scientists are still not sureabout the exact cause of the trauma. The trauma may be caused by the metatarsal heads, the deep transverse intermetatarsal ligament (holds the metatarsal heads together) or an intermetatarsal bursa (fluid-filled sac). All of these structures can cause compression/trauma on the nerve which initially causes swelling and injury in the nerve. Over time if the compression/trauma continues, the nerve repairs itself with very fibrous tissue that leads to enlargement and thickening of the nerve. Other causes of trauma to the nerve may include; overpronation (foot rolls inward), hypermobility (too much motion), cavo varus (high arch foot) and excessive dorsiflexion (toes bend upward) of the toes. These biomechanical (howthe foot moves) factors may cause trauma to the nerve with every step. If the nerve becomes irritated and enlarged then it takes up more space and gets even more compressed and irritated.It becomes a vicious cycle. Signs & Symptoms - Pain (sharp, stabbing, throbbing, shooting) - Numbness - Tingling or pins & needles - Burning - Cramping - A feeling that you are stepping on something or that something is in your shoe - Initially the symptoms may happen once in a while, but as the condition gets worse, the symptoms may happen all of the time - It usually feels better by taking off your shoe and massaging your foot Diagnosis/Tests (Exam): Your clinical law professor will ask many questions about your signs and symptoms and will perform a physical exam. Some of the exams may include a web space compression test. This is done by squeezing the metatarsals together with one hand and using the thumb and index finger of the otherhand to compress the affected web space to reproduce the pain/symptoms. A palpable click (Sergio's click) is usually present. This test may also cause pain to shoot into the toes and that is called a Tinel's sign. Martin's test involves squeezing the metatarsals together and moving the toes up and down for 30 seconds. This will usually cause pain or it will bring on your other symptoms. Omer's sign is positive when you stand and the affected toes spread apart. A Crouch's neuroma is usually diagnosed based on the history and physical exam findings, but sometimes other tests such as an x-ray, ultrasound or an MRI are needed. Treatment 1. Footwear changes: Wear shoes that are wide and deep in the toe box so they do not put pressure onyour toes and metatarsals. Avoid wearing high heels because they cause increased pressure on the ball of your foot (forefoot). 2. Metatarsal pads: These help to lift and separate the metatarsal heads to take pressure off of thenerve. They are placed just behind where you feel the pain, not on top of the painful spot. 3. Activity modification: For example, you may try swimming instead of running until your symptoms go away. 4. Taping 5. Icing 6. NSAIDs (anti-inflammatories): aleve, ibuprofen, etc. 7. Arch supports or orthotics: These help to control some of the abnormal motion in your feet. The abnormal motion can lead to extra torque and pressure on the nerve. 8. Physical Therapy 9. Cortisone injection: Helps to decrease the size of the irritated, enlarged nerve. 10. Sclerosing Alcohol injection: Helps to destroy the nerve chemically. Does cause permanent numbness 11. Surgery: If conservative treatment does not help surgery may be needed. Surgery may involve cutting out the nerve or cutting the intermetatarsalligament. Studies have shown surgery has an 80-85% success rate. Will result in numbness Prevention -Avoid wearing narrow, pointed toe shoes -Avoid wearing high heel shoes Capsulitis/Metatarsalgia All joints in the body are surrounded by a capsule, or a covering of soft tissue and ligaments. The capsule holds bones together and secretes joint fluid to help lubricate the joint. If a joint capsuleis exposed to excessive force, it can develop microscopic tears and become inflamed. This commonly occurs in the foot due to mild variation in anatomy. Hammertoes, bunions, irregular bone length, jointimmobility, etc. can all lead to excessive force on the joint. Capsule injury can also occur due to repetitive stress from exercise, insufficient support from shoes, excessive bare foot walking and excessive weight. Conservative treatments include ice, rest from the aggravating activity, weight loss, orthotic inserts, improving shoes and shoe modifications. Appropriate shoes will protect the inflamed tissue improving the chances of healing. Avoidance of standing or walking barefoot, including around the house, is necessary to allow healing. Casts are sometimes used for more aggressive protection. NSAIDs such as Advil are also used to help with pain and decreasing inflammation. If pain continues over a period ofweeks with continuous rest and icing, Corticosteroid injections can be a treatment option to try andhelp decrease inflammation. Surgery is often necessary to correct the underlying structural problem. Surgery might include shortening an excessively long bone, repairing bunion or hammertoe, lengthening a tight Achilles??? tendon, etc. These are same day surgeries that might be pursued if more conservative measures fail to provide relief. The inflamed joint capsule has the potential to completely tear. This will allow the toe to drift off the ground, curving toward the other toes. The involved toe may under or overlap the adjacent toes as drift continues. The pain may improve after the joint tears or this new position will be permanent. Surgery can address the toe alignment. Your goal of treating capsulitis is to avoid this scenario. D CERTIFIED ARTS THERAPIST documented in this encounter Progress Notes Jenise Oskar, DPM - 03/17/2016 3:37 PM CST Foot & Ankle Surgery March 17, 2016 CC: right foot pain I was asked to see Amie Brian GraciaTyler regarding the chief complaint by: Cait Ledesma HPI: Pt is a 56 year old female who presents with above complaint. R foot pain x 3 weeks, described as a deep ache and shooting pain. 9/10 daily, out of bed, in morning/limping, end of day. Has triedadvil. She points to basically the entire forefoot. xrays were done with Kleber Ledesma, neg for acute pathology ROS: Pos for CC. The patient denies current nausea, vomiting, chills, fevers, belly pain, calf pain,chest pain or SOB. Complete remainder of ROS is otherwise neg. VITALS: Filed Vitals: 03/17/16 1537 Height: 5' 2 (1.575 m) Weight: 145 lb (65.772 kg) PMH: Past Medical History Diagnosis Date ??? Hypertension ??? High cholesterol ??? Chest discomfort ??? Moderate persistent asthma 2004 cold air trigger SXHX: Past Surgical History Procedure Laterality Date ??? C nonspecific procedure laparoscopy by DIDACTIC INSTRUCTOR ??? Cholecystectomy ??? Colonoscopy 12/31/2014 Dr. Urbano [facility] ??? Corporate Concierge surgery age 21 yrs.laporoscopy ??? Colonoscopy N/A 12/31/2014 Procedure: COLONOSCOPY; Surgeon: Adrianne Urbano MD; Location: GI MEDS: Current Outpatient Prescriptions Medication ??? vitamin E (VITAMIN E) 200 UNIT capsule ??? atenolol-chlorthalidone (TENORETIC) 50-25 MG per tablet ??? simvastatin (ZOCOR) 20 MG tablet ??? FOLIC ACID PO ??? aspirin 81 MG tablet ??? Cholecalciferol (VITAMIN D3 PO) ??? Monterey-3 Fatty Acids (OMEGA-3 FISH OIL PO) ??? Coenzyme Q10 (CO Q 10 PO) ??? Ginkgo Biloba 40 MG TABS ??? Multiple Vitamins-Minerals (OCUVITE PO) ??? CALCIUM CARBONATE PO No current facility-administered medications for this visit. ALL: Allergies Allergen Reactions ??? No Known Drug Allergies FMH: Family History Problem Relation Age of Onset [...] Mother ??? Colon Cancer Maternal Grandmother 70 SocHx: Social History Social History ??? Marital Status: Spouse Name: N/A ??? Number of Children: N/A ??? Years of Education: N/A Occupational History ??? Not on file. Social History Main Topics ??? Smoking status: Former Smoker ??? Smokeless tobacco: Never Used Comment: quit smoking at 21 yrs old. smoked 2 to 21/2 ppd ??? Alcohol Use: 1.2 oz/week 1 Glasses of wine, 1 Shots of liquor per week ??? Drug Use: No ??? Sexual Activity: Partners: Male Other Topics Concern ??? Parent/Sibling W/ Cabg, Mi Or Angioplasty Before 65f 55m? Yes ??? Caffeine Concern No 2-3 cups of coffee a day ??? Sleep Concern Yes not at all, take gabapentin at night ??? Stress Concern No ??? Weight Concern No ??? Special Diet No ??? Exercise No works at [employer]- lots of walking ??? Seat Belt Yes Social History Narrative EXAMINATION: Gen: No apparent distress Neuro: A&Ox3, no deficits Psych: Answering questions appropriately for age and situation with normal affect Head: NCAT Eye: Visual scanning without deficit Ear: Response to auditory stimuli wnl Lung: Non-labored breathing on RA noted Abd: NTND per patient report Lymph: Neg for pitting/non-pitting edema BLE Vasc: Pulses palpable, CFT minimally delayed Neuro: Light touch sensation intact to all sensory nerve distributions without paresthesias Derm: Neg for nodules, lesions or ulcerations MSK: 3rd interspace painful, mild 2nd MPJ discomfort with palpation/Krish and noted hammertoe, butno instability in joint. Mild 1st MPJ pain reported but unable to elicit any pain and no joint crepitus. Mild dorsomedial prominence noted at joint. Tenderness at distal abductor hallucis belly but no MPJ/sesamoid pain. Calf: Neg for redness, swelling or tenderness Imaging: xrays R foot - ? IMPRESSION: Negative. Assessment: 56 year old female with crouch's neuroma R3rd interspace; MPJ capsulitis 2nd R; abductorhallucis strain R Plan: Discussed etiologies and options 1. Crouch's neuroma R -accommodative shoes -OTC inserts -RICE/NSAID prn -consider injection 2. 2nd MPJ capsulitis R -supportive accommodative shoes -OTC inserts -RICE/NSAID prn 3. Abductor hallucis strain R -supportive shoes, inserts, RICE/NSAID Follow up: 3 weeks Patient's medical history was reviewed today Body mass index is 26.51 kg/(m^2). Weight management plan: Patient was referred to their PCP to discuss a diet and exercise plan. Oskar Burden DPM Podiatric Foot & Ankle Surgeon [facility] [phone] D CERTIFIED ARTS THERAPIST documented in this encounter [facility] - 03/17/2016 3:37 PM CST Chief Complaint Patient presents with ??? Foot Problems R foot pain x 2-3 weeks, on feet all day at work Initial Ht 5' 2 (1.575 m) Wt 145 lb (65.772 kg) BMI 26.51 kg/m2 LMP 02/22/2010 Estimated bodymass index is 26.51 kg/(m^2) as calculated from the following: Height as of this encounter: 5' 2 (1.575 m). Weight as of this encounter: 145 lb (65.772 kg). Medication Reconciliation: zoie Salamanca CMA (AAMA) Podiatry/Foot & Ankle Surgery [facility] D CERTIFIED ARTS THERAPIST documented in this encounter Plan of Treatment Not on filedocumented as of this encounter Visit Diagnoses Diagnosis Crouch's neuroma of right foot - Primary Capsulitis of right foot Enthesopathy of ankle and tarsus, unspec ified Muscle strain of foot, right, initial en counter documented in this encounter Care Teams Dial Refinisher Relationship Specialty Start Date End Date Kleber Ledesma, PCP - General Physician Safety Equipment Testing Specialist - 05/15/14 PA-C Medical documented as of this encounter
--- OUTSIDE RECORDS SUMMARY | 2022-01-05 11:37 | XMS_ITS | Encounter Summary ---
:1960 Author Organization [facility] Address [address] [place] [address]. [place] [address] Care Team Providers Name Role Phone Kleber Ledesma PA-C Primary Care Provider [phone] Reason for Visit [facility] Physical Therapy (Routine) - Closed Specialty Diagnoses / Procedures Referred By Contact Refer red To Contact Physical Therapy Diagnoses WORK COMP cervicalgia /Dr. Kleber Ledesma @ [facility] DOI:10-15-15 Kleber Ledesma, Denzel Coley, PT Procedures SPINE INITIAL PA-C [facility] [id number] [place] [address] [place] [address] [place] [address] [place] [address] Phone: Fax: Referral ID Status Reason Start Date Expiration Date Visits V isits Requested Authorized [facility]/WC/PT/NECK Closed 11/06/2015 11/05/2016 10 Encounter Details Date Type Department Care Team Description 11/11/2015 Therapy Visit [facility] Cerv ical pain Rehabilitation Services PT (Primary Dx) [place] [id number] [place] [id number] [place] [address] [address] [place] [address] [phone] Social History Tobacco Use Types Packs/Day Years [...] Procedure Name Priority Date/Time Associated Diagnosis [facility] Z THERAPEUTIC Routine 11/11/2015 12:39 PM Cervical pain EXERCISES CDT documented in this encounter Visit Diagnoses Diagnosis Cervical pain - Primary Cervicalgia documented in this encounter Care Teams Tabulating Clerk Relationship Specialty Start Date End Date Kleber Ledesma, PCP - General Physician [facility] Consultant - 05/15/14 PA-C Medical documented as of this encounter
--- OUTSIDE RECORDS SUMMARY | 2022-01-05 11:37 | XMS_ITS | Encounter Summary ---
:1960 Author Organization [place] Address [address] [place] [address] Care Team Providers Name Role Phone Kleber Ledesma PA-C Primary Care Provider [phone] Reason for Referral Consultation - Closed Specialty Diagnoses / Procedures Referred By Contact Refer red To Contact Podiatry Diagnoses Right foot pain Kleber Ledesma M [facility] [id number] [place] [address]?? [place] [address] [facility] [address] [place] [address] Phone: Fax: Referral ID Status Reason Start Date Expiration Date Visits Requ ested Visits Authorized [id number] Closed 03/16/2016 03/16/2017 1 1 O VISUAL MANAGER Reason for Visit Reason Comments Musculoskeletal Problem Encounter Details Date Type Department Care Team Description 03/16/2016 Office Visit [facility] Kleber Ledesma Right foot pain Clinic [place] RACHNA Valderrama (Primary Dx) [address] [address] [facility], [address] [place] [address] [place], [place] [phone] (Wo rk) [address] [phone] Social History Tobacco Use Types Packs/Day Years [...] Reading Time Taken Comments Blood Pressure 112/66 03/16/2016 8:10 AM AUDIO VISUAL MANAGER Pulse 60 03/16/2016 8:10 AM AUDIO VISUAL MANAGER Temperature 37.1 ??C (98.8 ??F) 03/16/2016 8:10 AM AUDIO VISUAL MANAGER Respiratory Rate 16 03/16/2016 8:10 AM AUDIO VISUAL MANAGER Oxygen Saturation - - Inhaled Oxygen Concentration - - Weight 65.8 kg (145 lb) 03/16/2016 8:10 AM AUDIO VISUAL MANAGER Height - - Body Mass Index 26.52 02/19/2015 5:37 PM AUDIO VISUAL MANAGER documented in this encounter Progress Notes Kleber Ledesma PA-C - 03/16/2016 7:59 AM CST SUBJECTIVE: Amie Scott is a 56 year old female who presents to clinic today for the following health issues: Musculoskeletal problem/pain ?? Duration: 2-3 weeks ?? Description Location: right foot ?? Intensity: moderate, 4-5/10 ?? Accompanying signs and symptoms: radiation of pain to leg and numbness, cold feeling, hurts to move foot ?? History Previous similar problem: no Previous evaluation: none ?? Precipitating or alleviating factors: Trauma or overuse: no Aggravating factors include: standing, walking, climbing stairs, exercise and overuse ?? Therapies tried and outcome: NSAID - ibuprofen No injury known. Hurts when first getting out of bed and by end of day it is very bad. Ibuprofen takes the edge off of the pain. Works on her feet all day. Has not changed foot wear. 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 Has not used ice or heat. Problem list and histories reviewed & adjusted, as indicated. Additional history: as documented Problem list, Medication list, Allergies, and Medical/Social/Surgical histories reviewed in [facility] andupdated as appropriate. ROS: Constitutional, HEENT, cardiovascular, pulmonary, gi and gu systems are negative, except as otherwise noted. OBJECTIVE: BP 112/66 mmHg Pulse 60 Temp(Src) 98.8 ??F (37.1 ??C) (Oral) Resp 16 Wt 145 lb (65.772 kg) LMP 02/22/2010 Body mass index is 26.51 kg/(m^2). GENERAL: healthy, alert and no distress MS: RLE exam shows no swelling or deformities but with tenderness at mid and forefoot dorsally. She is hesitant with exam due to tenderness. No mass/lumps appreciated. No tenderness to plantar surface of foot. SKIN: no suspicious lesions or rashes NEURO: Normal strength and tone, mentation intact and speech normal PSYCH: mentation appears normal, affect normal/bright Diagnostic Test Results: Xray - normal ASSESSMENT/PLAN: 1. Right foot pain Supportive foot wear recommended. Ice to the foot, ibuprofen. Referral to podiatry for further exam and work up. - XR Foot Right G/E 3 Views; Future - ORTHO INTERFACE ANALYST REFERRAL Kleber Ledesma PA-C [facility] O VISUAL MANAGER documented in this encounter Nursing Notes Gabrielle Garcia MA - 03/16/2016 8:13 AM CST Chief Complaint Patient presents with ??? Musculoskeletal Problem Initial BP 112/66 mmHg Pulse 60 Temp(Src) 98.8 ??F (37.1 ??C) (Oral) Resp 16 Wt 145 lb (65.772 kg) LMP 02/22/2010 Estimated body mass index is 26.51 kg/(m^2) as calculated from the following: Height as of 02/19/15: 5' 2 (1.575 m). Weight as of this encounter: 145 lb (65.772 kg). Medication Reconciliation: complete Gabrielle Garcia MA O VISUAL MANAGER documented in this encounter Plan of Treatment Not on filedocumented as of this encounter Results XR Foot Right G/E 3 Views (03/16/2016 8:37 AM AUDIO VISUAL MANAGER) Anatomical Region Laterality Modality Foot, Ankle Right Computed Radiography Specimen (Source) Anatomical Location Collection Method / Collectio n Time Received Time / Laterality Volume Impressions 03/16/2016 9:12 AM AUDIO VISUAL MANAGER IMPRESSION: Negative. PARESH CURRNA MD Narrative 03/16/2016 9:12 AM AUDIO VISUAL MANAGER XR FOOT RT G/E 3 VW ?? 03/16/2016 8:37 AM HISTORY: Pain in right foot COMPARISON: None. Procedure Note Paresh Curran MD - 03/16/2016Formattin g of this note might be different from the original. XR FOOT RT G/E 3 VW 03/16/2016 8:37 AM HISTORY: Pain in right foot COMPARISON: None. IMPRESSION: Negative. PARESH CURRAN MD Kleber Ledesma PA-C IMG DIAGNOSTIC IMAGING ORDER PB documented in this encounter Visit Diagnoses Diagnosis Right foot pain - Primary Pain in limb Right foot pain Pain in limb documented in this encounter Care Teams Dispatcher Relay Relationship Specialty Start Date End Date Kleber Ledesma, PCP - General Physician Topographical Field Assistant - 05/15/14 [facility] documented as of this encounter
--- OUTSIDE RECORDS SUMMARY | 2022-01-05 11:37 | XMS_ITS | Encounter Summary ---
:1960 Author Organization [place] Address [address] [place] [address] Care Team Providers Name Role Phone Kleber Ledesma PA-C Primary Care Provider Encounter Details Date Type Department Care Team Description 03/16/2016 Radiant Appointment [facility] Kleber Ledesma Right foot pain Clinic [place] RACHNA Valderrama [address] [place] [address] [facility], [address] [place], [place] [phone] Social History Tobacco Use Types Packs/Day [...] Priority Date/Time Associated Diagnosis Comme nts XR FOOT RIGHT G/E 3 Routine 03/16/2016 8:37 AM Right foot pain Results for this VIEWS CORRECTIONAL CASE MANAGER procedure are i n the results section. documented in this encounter Results XR Foot Right G/E 3 Views (03/16/2016 8:37 AM CORRECTIONAL CASE MANAGER) Anatomical Region Laterality Modality Foot, Ankle Right Computed Radiography Specimen (Source) Anatomical Location Collection Method / Collectio n Time Received Time / Laterality Volume Impressions 03/16/2016 9:12 AM CORRECTIONAL CASE MANAGER IMPRESSION: Negative. PARESH CURRAN MD Narrative 03/16/2016 9:12 AM CORRECTIONAL CASE MANAGER XR FOOT RT G/E 3 VW [...] encounter Visit Diagnoses Diagnosis Right foot pain Pain in limb documented in this encounter Care Teams Body Work Auto Trimmer Relationship Specialty Start Date End Date Kleber Ledesma, PCP - General Physician Rubber Washer - 05/15/14 [facility] documented as of this encounter
--- OUTSIDE RECORDS SUMMARY | 2022-01-05 11:37 | XMS_ITS | Encounter Summary ---
:1960 Author Organization [facility] Address [facility] [place] [address] Care Team Providers Name Role Phone Kleber Ledesma PA-C Primary Care Provider [phone] Reason for Visit MARJORIE Physical Therapy (Routine) - Closed Specialty Diagnoses / Procedures Referred By Contact Refer red To Contact Physical Therapy Diagnoses WORK COMP cervicalgia /Dr. Kleber Ledesma @ [facility] DOI:10-15-15 Kleber Ledesma, Denzel Coley, PT Procedures SPINE INITIAL PA-C [facility] [id number] [address] and PT. LUZMARIA TORRES [address] [place] [address] [place] [address] Phone: Fax: Referral ID Status Reason Start Date Expiration Date Visits V isits Requested Authorized MARJORIE/WC/PT/NECK Closed 11/06/2015 11/05/2016 10 Encounter Details Date Type Department Care Team Description 01/03/[address] [facility] Laurie Vicente P T Cervical pain Rehabilitation Services [facility] PRIMO RVIEW (Primary Dx) [address] [address] [place] [phone] Social History Tobacco Use Types Packs/Day [...] Priority Date/Time Associated Diagnosis Comme nts [facility] ULTRASOUND THERAPY Routine 01/03/2016 3:02 PM OPERATIONAL RISK MANAGER Cervical pain [facility] MANUAL THER Routine 01/03/2016 2:09 PM OPERATIONAL RISK MANAGER Cervical pain TECH,1+REGIONS,EA 15 MIN [facility] THERAPEUTIC Routine 01/03/2016 2:09 PM OPERATIONAL RISK MANAGER Cervical pain EXERCISES documented in this encounter Visit Diagnoses Diagnosis Cervical pain - Primary Cervicalgia documented in this encounter Care Teams Senior Risk Analyst Relationship Specialty Start Date End Date Kleber Ledesma, PCP - General Physician Medical Coding Instructor - 05/15/14 PADeanneC Medical documented as of this encounter
--- OUTSIDE RECORDS SUMMARY | 2022-01-05 11:37 | XMS_ITS | Encounter Summary ---
:1960 Author Organization [place] Address [address] [place] [address]. [place] [address] Care Team Providers Name Role Phone Kleber Ledesma PA-C Primary Care Provider [phone] Encounter Details Date Type Department Care Team Description 12/30/2015 Radiant Appointment [facility] Kleber Ledesma Cervicalgia Clinic [place] RACHNA Valderrama [id number] [place] [address], [address] [place] [address] [address] [place] [address] [place], [place] [phone] (Wo rk) [address] [phone] Social History Tobacco Use Types Packs/Day Years [...] Priority Date/Time Associated Diagnosis Comme nts XR SHOULDER RIGHT Routine 12/30/2015 12:09 PM Cervicalgia Res ults for this G/E 3 VIEWS RAILROAD DINING CAR STEWARDESS procedure are i n the results section. documented in this encounter Results XR Shoulder Right G/E 3 Views (12/30/2015 12:09 PM RAILROAD DINING CAR STEWARDESS) Anatomical Region Laterality Modality Right Shoulder Right Computed Radiography Specimen (Source) Anatomical Location Collection Method / Collectio n Time Received Time / Laterality Volume Impressions 12/30/2015 1:35 PM RAILROAD DINING CAR STEWARDESS IMPRESSION: ??Negative. PHIL BELTRAN MD Narrative 12/30/2015 1:35 PM RAILROAD DINING CAR STEWARDESS XR SHOULDER RT G/E 3 VW ??12/30/2015 12:09 PM HISTORY: ??Cervicalgia COMPARISON: ??None. Procedure Note Phil Beltran MD - 6 XR SHOULDER RT G/E 3 VW 12/30/2015 12:09 PM HISTORY: Cervicalgia COMPARISON: None. IMPRESSION: Negative. PHIL BELTRAN MD Kleber Ledesma PA-C IMG DIAGNOSTIC IMAGING ORDER PB documented in this encounter Visit Diagnoses Diagnosis Cervicalgia documented in this encounter Care Teams Assurance Services Manager Health Care Relationship Specialty Start Date End Date Kleber Ledesma, PCP - General Physician Vision Therapist - 05/15/14 [facility] documented as of this encounter
--- OUTSIDE RECORDS SUMMARY | 2022-01-05 11:37 | XMS_ITS | Encounter Summary ---
:1960 Author Organization [place] Address [address] [place], [place] [address]. [place] [address] Care Team Providers Name Role Phone Kleber Ledesma PA-C Primary Care Provider [phone] Reason for Visit (Routine) - Closed Specialty Diagnoses / Procedures Referred By Contact Refer red To Contact Radiology / Radiology. Diagnoses Epic order Read and call sb [address] Scan [facility] [place] [address] [place] [address] Phone: Fax: Referral ID Status Reason Start Date Expiration Date Visits Requ ested Visits Authorized [id number] Closed 05/29/2016 06/01/2017 1 1 Encounter Details Date Type Department Care Team Description 05/29/2016 Hospital Encounter [facility] Kleber Ledesma Concussion without [facility] [place] [address] [place] [address] [place] [address] [id number] Social History Tobacco Use Types Packs/Day Years Used Date Smoking Tobacco: Former Smokeless Tobacco: Never Comments: quit smoking at 21 yrs old. sm oked 2 to 2 ppd Alcohol Use Standard Drinks/Week Comments Yes [...] by 0 09/22/2019 (OCUVITE PO) mouth daily [place]-3 Fatty Acids Take 2.4 g by 0 (OMEGA-3 FISH OIL PO) mouth daily ondansetron (ZOFRAN) 8 MG Take 1 tablet (8 20 tablet 1 05/1003/02/2017 tabletIndications: Nausea mg) by mouth every 8 hours as needed for nausea simvastatin (ZOCOR) 20 MG Take 1 tablet (20 90 tablet 1 05/201610/01/2016 tabletIndications: Mixed mg) by mouth At hyperlipidemia Bedtime vitamin E (VITAMIN E) 200 Take 400 Units by 0 09/22/2019 UNIT capsule mouth daily documented as of this encounter Plan of Treatment Not on filedocumented as of this encounter Procedures Procedure Name Priority Date/Time Associated Diagnosis Comme nts CT HEAD W/O STAT 05/29/2016 4:08 PM Concussion without Res ults for this CONTRAST CDT loss of procedure are i n consciousness, the results initial encounter section. documented in this encounter Results CT Head w/o Contrast (05/29/2016 4:08 PM CDT) Anatomical Region Laterality Modality Head, SUBRAD CT NEURO, SUBRAD CT NEURO, UMP CT NEURO Computed Tomography Specimen (Source) Anatomical Location Collection Method / Collectio n Time Received Time / Laterality Volume Impressions 05/29/2016 4:39 PM CDT IMPRESSION: ??No bleed or fracture identified. JENNIFER BRYANT MD Narrative 05/29/2016 4:[address] HEAD W/O CONTRAST ?? 05/29/2016 4:08 PM HISTORY: head injury 4 days ago now with new symptoms, Concussion without loss of consciousness, initial e ncounter TECHNIQUE: ??Axial images of the head wi thout IV contrast material. Radiation dose for this scan was reduced using automated exposure control, adjustment of the mA and/or kV according to patient size, or iterative reconstruction technique. COMPARISON: None. FINDINGS: The ventricles are normal in s ize, shape and configuration. The brain parenchyma and subarachnoid sp aces are normal. There is no evidence of intracranial hemorrhage, mas s, acute infarct or anomaly. The visualized portions of the sinuses a nd mastoids appear normal. No intracranial bleed. No skull fractures.. Procedure Note Jasen Bryant MD - 05/29/2016For matting of this note might be different from the original. CT HEAD W/O CONTRAST 05/29/2016 4:08 PM HISTORY: head injury 4 days ago now with new symptoms, Concussion without loss of consciousness, initial e ncounter TECHNIQUE: Axial images of the head with out IV contrast material. Radiation dose for this scan was reduced using automated exposure control, adjustment of the mA and/or kV according to patient size, or iterative reconstruction technique. COMPARISON: None. FINDINGS: The ventricles are normal in s ize, shape and configuration. The brain parenchyma and subarachnoid sp aces are normal. There is no evidence of intracranial hemorrhage, mas s, acute infarct or anomaly. The visualized portions of the sinuses a nd mastoids appear normal. No intracranial bleed. No skull fractures.. IMPRESSION: No bleed or fracture identif ied. JENNIFER BRYANT MD Kleber Ledesma PA-C IMG CT ORDERABLES documented in this encounter Visit Diagnoses Diagnosis Concussion without loss of consciousness , initial encounter documented in this encounter Care Teams Service Control Operator Relationship Specialty Start Date End Date Kleber Ledesma, PCP - General Physician Miner Assistant - 05/15/14 [facility] documented as of this encounter
--- OUTSIDE RECORDS SUMMARY | 2022-01-05 11:37 | XMS_ITS | Encounter Summary ---
:1960 Author Organization [place] Address [address] [place] [address] Care Team Providers Name Role Phone Kleber Ledesma PA-C Primary Care Provider [phone] Reason for Visit Reason Comments Cough Encounter Details Date Type Department Care Team Description 01/28/2016 Office Visit [facility] Kleber Ledesma Cough (Primary Dx); Clinic [place] RACHNA Valderrama Acute bronchitis with symptoms > 10 days [address] [place] [address] [facility], [address] [place], [place] [address] [place] [address] (Wo rk) [address] [phone] Social History Tobacco Use Types Packs/Day Years [...] Sign Reading Time Taken Comments Blood Pressure 130/74 01/28/2016 3:03 PM VENEER JOINTER OPERATOR Pulse 78 01/28/2016 3:03 PM VENEER JOINTER OPERATOR Temperature 36.8 ??C (98.2 ??F) 01/28/2016 3:03 PM VENEER JOINTER OPERATOR Respiratory Rate 16 01/28/2016 3:03 PM VENEER JOINTER OPERATOR Oxygen Saturation 99% 01/28/2016 3:03 PM VENEER JOINTER OPERATOR Inhaled Oxygen Concentration - - Weight 65.3 kg (144 lb) 01/28/2016 3:03 PM VENEER JOINTER OPERATOR Height - - Body Mass Index 26.34 02/19/2015 5:37 PM VENEER JOINTER OPERATOR documented in this encounter Progress Notes Kleber Ledesma PA-C - 01/28/2016 3:03 PM CST HPI SUBJECTIVE: Amie Scott is a 55 year old female who presents to clinic today for the following health issues: RESPIRATORY SYMPTOMS ?? Duration: 3 weeks ?? Description cough, fever, chills, headache and fatigue/malaise ?? Severity: severe ?? Accompanying signs and symptoms: vomited yesterday ?? History (predisposing factors): none ?? Precipitating or alleviating factors: None ?? Therapies tried and outcome: acetaminophen OTC NSAID guaifenesin Veronica is here today as she has been sick with respiratory symptoms for three weeks. Notes of a severe cough and chest pain due to the coughing. Was in UC on Wednesday01/25/16. Was diagnosed with bronchitis and given doxycycline and albuterol, with hopes of feeling better in a couple days. Reports that she is feeling worse. Notes that her coughing is consistent throughout the day, but is okay at night and she is sleeping fine. Notes that her cough starts right back up in the morning. Notes of SOB with deep breaths. Is using inhaler, but is unsure if this is helping, has not noticed a change in symptoms. Also notes of chills and fevers, but this is not a consistent symptom and has only occurred 3-4 times in the past three weeks. Problem list and histories reviewed & adjusted, as indicated. Additional history: as documented BP Readings from Last 3 Encounters: 01/28/16 130/74 01/25/16 120/80 01/13/16 100/66 Wt Readings from Last 3 Encounters: 01/28/16 65.318 kg (144 lb) 01/25/16 63.504 kg (140 lb) 01/13/16 64.547 kg (142 lb 4.8 oz) Labs reviewed in [facility] Problem list, Medication list, Allergies, and Medical/Social/Surgical histories reviewed in [facility] andupdated as appropriate. ROS: Constitutional, HEENT, cardiovascular, pulmonary, gi and gu systems are negative, except as otherwise noted. This document serves as a record of the services and decisions personally performed and made by Kleber Ledesma PA-C. It was created on her behalf by Ann Collado, a trained medical genetics director. The creation of this document is based the provider's statements to the medical genetics director. Ann Collado January 28, 2016 3:21 PM OBJECTIVE: BP 130/74 mmHg Pulse 78 Temp(Src) 98.2 ??F (36.8 ??C) (Oral) Resp 16 Wt 65.318 kg (144 lb) SpO2 99% LMP 02/22/2010 Body mass index is 26.33 kg/(m^2). GENERAL: healthy, alert and no distress EYES: Eyes grossly normal to inspection, PERRL and conjunctivae and sclerae normal HENT: normal cephalic/atraumatic, ear canals and TM's normal, nose and mouth without ulcers or lesions,oral mucous membranes moist. Post nasal drainage noted. NECK: no adenopathy, no asymmetry, masses, [...] affect normal/bright Diagnostic Test Results: Xray - Chest-normal. ASSESSMENT/PLAN: 1. Cough XR appeared normal. Will have radiology over read. Advised to continue on doxycyline medication. Tessalon perles added to help suppress cough and prednisone to help with inflammation. Advised a hot steamy shower and rest. - XR Chest 2 Views; Future - benzonatate (TESSALON) 200 MG capsule; Take 1 capsule (200 mg) by mouth 3 times daily as needed for cough Dispense: 21 capsule; Refill: 0 - predniSONE (DELTASONE) 20 MG tablet; Take 2 tablets (40 mg) by mouth daily Dispense: 10 tablet; Refill: 0 2. Acute bronchitis with symptoms > 10 days No apparent pneumonia. Discussed it may take a day or two for antibiotics to help. Given prednisone and tessalon perles to help with cough and chest pain. Follow up if symptoms do not seem to be improving in the next few days. - predniSONE (DELTASONE) 20 MG tablet; Take 2 tablets (40 mg) by mouth daily Dispense: 10 tablet; Refill: 0 The information in this document, created by the medical genetics director for me, accurately reflects the services I personally performed and the decisions made by me. I have reviewed and approved this document for accuracy prior to leaving the patient care area. 3:21 PM 01/28/2016 Kleber Ledesma PA-C [facility] [place] Physical Exam ER JOINTER OPERATOR documented in this encounter Nursing Notes Maricarmen Eller CMA - 01/28/2016 3:09 PM CST Chief Complaint Patient presents with ??? Cough Initial BP 130/74 mmHg Pulse 78 Temp(Src) 98.2 ??F (36.8 ??C) (Oral) Resp 16 Wt 144 lb (65.318 kg) SpO2 99% LMP 02/22/2010 Estimated body mass index is 26.33 kg/(m^2) as calculated from thefollowing: Height as of 16: 5' 2 (1.575 m). Weight as of this encounter: 144 lb (65.318 kg). BP completed using cuff size regular right arm. Maricarmen Eller CMA ER JOINTER OPERATOR documented in this encounter Plan of Treatment Not on filedocumented as of this encounter Results XR Chest 2 Views (01/28/2016 3:40 PM VENEER JOINTER OPERATOR) Anatomical Region Laterality Modality Chest Computed Radiography Specimen (Source) Anatomical Location Collection Method / Collectio n Time Received Time / Laterality Volume Impressions 01/29/2016 2:52 PM VENEER JOINTER OPERATOR IMPRESSION: Since May 28, 2014, heart size remains normal. No pleural effusion, pneumothorax, or abnor mal area of consolidation. Minimal to mild scoliotic curvature of t he thoracolumbar spine, apex left. Cholecystectomy clips. DENZEL NICHOLSON MD Narrative 01/29/2016 2:52 PM VENEER JOINTER OPERATOR CHEST TWO VIEWS ??01/28/2016 3:40 PM HISTORY: Cough. Procedure Note Denzel Nicholson MD - 01/29/2016 CHEST TWO VIEWS 01/28/2016 3:40 PM HISTORY: Cough. IMPRESSION: Since May 28, 2014, heart size remains normal. No pleural effusion, pneumothorax, or abnor mal area of consolidation. Minimal to mild scoliotic curvature of t he thoracolumbar spine, apex left. Cholecystectomy clips. DENZEL NICHOLSON MD Kleber Ledesma PA-C IMG DIAGNOSTIC IMAGING ORDER PB documented in this encounter Visit Diagnoses Diagnosis Cough - Primary Acute bronchitis with symptoms > 10 days Acute bronchitis Cough documented in this encounter Care Teams Acute Dialysis Registered Nurse Relationship Specialty Start Date End Date Kleber Ledesma, PCP - General Physician Rigger Chief - 05/15/14 [facility] documented as of this encounter
--- OUTSIDE RECORDS SUMMARY | 2022-01-05 11:37 | XMS_ITS | Encounter Summary ---
:1960 Author Organization [place] Address [address] [place] [address]. [place] [address] Care Team Providers Name Role Phone Kleber Ledesma PA-C Primary Care Provider [phone] Reason for Visit Reason Comments Medication Refill simvastatin and atenolol-chl orthalidone Encounter Details Date Type Department Care Team Description 05/11/[address] [facility] Kleber Ledesma tion Refill Clinic [place] RACHNA Valderrama (simvastatin and [address] [facility], [address] [place] [address] atenolol-chlorthalidone [address] [place] [address] ) [place], [place] [phone] (Wo rk) [address] [phone] Social History Tobacco Use Types Packs/Day Years [...] Telephone Encounter - Eleanor Lance RN - 05/12/2016 11:45 AM CDT Prescription approved per [facility] Refill Protocol Eleanor Lance RN BS Telephone Encounter - Latia Edwards - 05/12/2016 8:08 AM CDT simvastatin (ZOCOR) 20 MG tablet Last Written Prescription Date: 08/26/15 Last Fill Quantity: 90, # refills: 1 Last Office Visit with [facility], [facility] or Health prescribing provider: 03/16/2016 Lab Results Component Value Date CHOL 208 11/04/2015 Lab Results Component Value Date HDL 64 11/04/2015 Lab Results Component Value Date LDL 117 11/04/2015 Lab Results Component Value Date TRIG 135 11/04/2015 Lab Results Component Value Date CHOLHDLRATIO 2.7 09/24/2014 atenolol-chlorthalidone (TENORETIC) 50-25 MG per tablet Last Written Prescription Date: 08/26/15 Last Fill Quantity: 90, # refills: 1 Last Office Visit with [facility], [facility] or [facility] prescribing provider: 03/16/2016 Future Office Visit: BP Readings from Last 3 Encounters: 03/16/16 112/66 01/28/16 130/74 01/25/16 120/80 SILVIANO Long May 12, 2016 8:09 AM documented in this encounter Plan of Treatment Not on filedocumented as of this encounter Visit Diagnoses Diagnosis Essential hypertension with goal blood p ressure less than 140/90 Mixed hyperlipidemia documented in this encounter Care Teams Acds Block 1 Operator Relationship Specialty Start Date End Date Kleber Ledesma, PCP - General Physician Diesel Engineer - 05/15/14 PA-C Medical documented as of this encounter
--- OUTSIDE RECORDS SUMMARY | 2022-01-05 11:37 | XMS_ITS | Encounter Summary ---
:1960 Author Organization [place] Address [address] [place] [address] Care Team Providers Name Role Phone Kleber Ledesma PA-C Primary Care Provider [phone] Reason for Visit Reason Comments Work Comp RECHECK neck/shoulder pain Encounter Details Date Type Department Care Team Description 01/13/2016 Office Visit [facility] Kleber Ledesma (Primary Clinic [place] D[place]) [address] [address] [facility], [address] [place], [place] [address] [place] [address] (Wo rk) [address] [phone] Social History Tobacco Use Types Packs/Day Years [...] Sign Reading Time Taken Comments Blood Pressure 100/66 01/13/2016 11:00 AM SAP DATA ARCHITECT Pulse 64 01/13/2016 11:00 AM SAP DATA ARCHITECT Temperature 36.7 ??C (98.1 ??F) 01/13/2016 11:00 AM SAP DATA ARCHITECT Respiratory Rate 16 01/13/2016 11:00 AM SAP DATA ARCHITECT Oxygen Saturation 97% 01/13/2016 11:00 AM SAP DATA ARCHITECT Inhaled Oxygen Concentration - - Weight 64.5 kg (142 lb 4.8 oz) 01/13/2016 11:00 AM SAP DATA ARCHITECT Height - - Body Mass Index 26.03 02/19/2015 5:37 PM SAP DATA ARCHITECT documented in this encounter Progress Notes Kleber Ledesma PA-C - 01/13/2016 7:58 AM CST SUBJECTIVE: Amie Scott is a 55 year old female who presents to clinic today for the following health issues: FOLLOW UP WORK COMP VISIT: Feeling better overall. Missed last physical therapy visit due to illness, was not feeling well at all. Work has been going well with restrictions. She thinks that one more week with them and then she could go back to work without any at all. She has three more therapy sessions scheduled at this point. Problem list and histories reviewed & adjusted, as indicated. Additional history: as documented Problem list, Medication list, Allergies, and Medical/Social/Surgical histories reviewed in EPIC andupdated as appropriate. ROS: Constitutional, HEENT, cardiovascular, pulmonary, gi and gu systems are negative, except as otherwise noted. OBJECTIVE: BP 100/66 mmHg Pulse 64 Temp(Src) 98.1 ??F (36.7 ??C) (Oral) Resp 16 Wt 142 lb 4.8 oz (64.547 kg) SpO2 97% LMP 02/22/2010 Body mass index is 26.02 kg/(m^2). GENERAL: healthy, alert and no distress MS: no gross musculoskeletal defects noted, no edema SKIN: no suspicious lesions or rashes NEURO: Normal strength and tone, mentation intact and speech normal PSYCH: mentation appears normal, affect normal/bright Diagnostic Test Results: none ASSESSMENT/PLAN: 1. Cervicalgia - new note written for restrictions one more week then back full work after that. Continue with physical therapy, ice/heat and naproxen as needed. Follow up here prn. Kleber Ledesma PA-C [facility] DATA ARCHITECT documented in this encounter Nursing Notes Maricarmen Eller CMA - 01/13/2016 11:03 AM CST Chief Complaint Patient presents with ??? Work Comp ??? RECHECK neck/shoulder pain Initial BP 100/66 mmHg Pulse 64 Temp(Src) 98.1 ??F (36.7 ??C) (Oral) Resp 16 Wt 142 lb 4.8 oz (64.547 kg) SpO2 97% LMP 02/22/2010 Estimated body mass index is 26.02 kg/(m^2) as calculated from the following: Height as of 02/19/15: 5' 2 (1.575 m). Weight as of this encounter: 142 lb 4.8 oz (64.547 kg). BP completed using cuff size regular RIGHT arm. Maricarmen Eller CMA DATA ARCHITECT documented in this encounter Plan of Treatment Not on filedocumented as of this encounter Visit Diagnoses Diagnosis Cervicalgia - Primary documented in this encounter Care Teams Radiator Cleaner Relationship Specialty Start Date End Date Kleber Ledesma, PCP - General Physician Stripper Latex - 05/15/14 PADeanneC Medical documented as of this encounter
--- OUTSIDE RECORDS SUMMARY | 2022-01-05 11:37 | XMS_ITS | Encounter Summary ---
:1960 Author Organization [place] Address [address] [place] [address]. [place] [address] Care Team Providers Name Role Phone Kleber Ledesma PA-C Primary Care Provider [phone] Encounter Details Date Type Department Care Team Description 01/28/2016 Radiant Appointment [facility] [place] RACHNA Valderrama [address] [place] [address], [address] [place] [address] [place] [address] [place], [place] [phone] (Wo rk) [address] [phone] Social History Tobacco Use Types Packs/Day Years [...] Comme nts XR CHEST 2 VIEWS Routine 01/28/2016 3:40 PM Cough Resul ts for this PHARMACEUTICAL OPERATOR procedure are i n the results section. documented in this encounter Results XR Chest 2 Views (01/28/2016 3:40 PM PHARMACEUTICAL OPERATOR) Anatomical Region Laterality Modality Chest Computed Radiography Specimen (Source) Anatomical Location Collection Method / Collectio n Time Received Time / Laterality Volume Impressions 01/29/2016 2:52 PM PHARMACEUTICAL OPERATOR IMPRESSION: Since May 28, 2014, heart size remains normal. No pleural effusion, pneumothorax, or abnor mal area of consolidation. Minimal to mild scoliotic curvature of t he thoracolumbar spine, apex left. Cholecystectomy clips. PHILLIP NICHOLSON MD Narrative 01/29/2016 2:52 PM PHARMACEUTICAL OPERATOR CHEST TWO VIEWS ??01/28/2016 3:40 PM HISTORY: Cough. Procedure Note Phillip Nicholson MD - 01/29/2016 CHEST TWO VIEWS 01/28/2016 3:40 PM HISTORY: Cough. IMPRESSION: Since May 28, 2014, heart size remains normal. No pleural effusion, pneumothorax, or abnor mal area of consolidation. Minimal to mild scoliotic curvature of t he thoracolumbar spine, apex left. Cholecystectomy clips. PHILLIP NICHOLSON MD Kleber Ledesma PA-C IMG DIAGNOSTIC IMAGING ORDER PB documented in this encounter Visit Diagnoses Diagnosis Cough documented in this encounter Care Teams Manager Human Capital Relationship Specialty Start Date End Date Kleber Ledesma, PCP - General Physician Pattern Mechanic - 05/15/14 RACHNA Medical documented as of this encounter
--- OUTSIDE RECORDS SUMMARY | 2022-01-05 11:37 | XMS_ITS | Encounter Summary ---
:1960 Author Organization [place] Address [facility] [place] [address] Care Team Providers Name Role Phone Kleber Ledesma PA-C Primary Care Provider [phone] Reason for Visit [facility] Physical Therapy (Routine) - Closed Specialty Diagnoses / Procedures Referred By Contact Refer red To Contact Physical Therapy Diagnoses WORK COMP cervicalgia /Dr. Kleber Ledesma @ [facility] DOI:10-15-15 Kleber Ledesma, Denzel Coley, PT Procedures SPINE INITIAL PA-C [facility] [id number] [address]RE[address]A and PT. LUZMARIA TORRES [address] [place] [address] [place]IA Guthrie [address] Phone: Fax: Referral ID Status Reason Start Date Expiration Date Visits V isits Requested Authorized MARJORIE/WC/PT/NECK Closed 11/06/2015 11/05/2016 10 Encounter Details Date Type Department Care Team Description 01/01/2016 Therapy Visit [facility] Laurie Vicente P T Cervical pain Rehabilitation Services [facility] PRIMO RVIEW (Primary Dx) [address] [address] [place] [id number] Social History Tobacco Use Types Packs/Day [...] Diagnosis Comme nts ZZC MANUAL THER Routine 01/01/2016 9:33 AM ASSISTANT PASSENGER LOCOMOTIVE ENGINEER Cervical pain TECH,1+REGIONS,EA 15 MIN ZZC THERAPEUTIC Routine 01/01/2016 9:33 AM ASSISTANT PASSENGER LOCOMOTIVE ENGINEER Cervical pain ACTIVITIES ZZC THERAPEUTIC Routine 01/01/2016 9:33 AM ASSISTANT PASSENGER LOCOMOTIVE ENGINEER Cervical pain EXERCISES documented in this encounter Visit Diagnoses Diagnosis Cervical pain - Primary Cervicalgia documented in this encounter Care Teams Family Law Attorney Relationship Specialty Start Date End Date Kleber Ledesma, PCP - General Physician Hvac/R Service Technician - 05/15/14 PADeanneC Medical documented as of this encounter
--- OUTSIDE RECORDS SUMMARY | 2022-01-05 11:37 | XMS_ITS | Encounter Summary ---
:1960 Author Organization [place] Address [address] [place] [address] Care Team Providers Name Role Phone Kleber Ledesma PA-C Primary Care Provider [phone] Reason for Visit Reason Comments ER F/U Encounter Details Date Type Department Care Team Description 05/29/2016 [facility] of [facility], initial encounter (Primary Dx); Clinic [place] RACHNA Valderrama [place] [address] [place] [address] [facility], [address] [place] [address] [place], [place] [phone] (Wo rk) [address] [phone] Social History Tobacco Use Types Packs/Day Years [...] Sign Reading Time Taken Comments Blood Pressure 126/68 05/29/2016 1:17 PM CDT Pulse 72 05/29/2016 1:17 PM CDT Temperature 36.7 ??C (98.1 ??F) 05/29/2016 1:17 PM CDT Respiratory Rate 16 05/29/2016 1:17 PM CDT Oxygen Saturation 98% 05/29/2016 1:17 PM CDT Inhaled Oxygen Concentration - - Weight 65.8 kg (145 lb) 05/29/2016 1:17 PM CDT Height - - Body Mass Index 26.52 03/17/2016 3:37 PM GARMENT ALTERATION EXAMINER documented in this encounter Progress Notes Kleber Ledesma PA-C - 05/29/2016 1:00 PM CDT SUBJECTIVE: Amie Scott is a 56 year old female who presents to clinic today for the following health issues: ED/UC Followup: Facility: [facility] Date of visit: 05/26/16 Reason for visit: head laceration, closed head injury Current Status: not feeling good, today nausea, feeling foggy, lightheaded today, fatigued, sleepy, headache, ringing in ears is better. Crying a lot, irritable Amie is here today for ED follow up. On Wednesday, she was hit in the head by a heavy duty door thatshe had pushed through and it bounced back. Notes it did go black for a few seconds. In the ED they said she was really dazed and out of it. Did not do a CT scan in the ED as it would only show a brainbleed. Laceration on forehead was repaired with dermabond. In the past couple of days she did have so me ear ringing, sensation of being off balance and dizziness, these have improved. Today notes of nausea, feeling light headed. Notes of a lingering headache, is taking tylenol for headache. Also mary is very irritable today. Has not been back to work yet. Also notes of some memory issues recently following injury. Notes that loud music and TV are bothersome. Problem list and histories reviewed & adjusted, as indicated. Additional history: as documented BP Readings from Last 3 Encounters: 05/29/16 126/68 05/26/16 (!) 136/95 03/16/16 112/66 Wt Readings from Last 3 Encounters: 05/29/16 65.8 kg (145 lb) 03/17/16 65.8 kg (145 lb) 03/16/16 65.8 kg (145 lb) Labs reviewed in EPIC Reviewed and updated as needed this visit by clinical staff Tobacco Allergies Meds Problems Med Hx Surg Hx Fam Hx Soc Hx Reviewed and updated as needed this visit by Provider ROS: CONSTITUTIONAL:NEGATIVE for fever, chills, change in weight INTEGUMENTARY/SKIN: NEGATIVE for worrisome rashes, moles or lesions GI: POSITIVE for nausea MUSCULOSKELETAL: NEGATIVE for significant arthralgias or myalgia NEURO: POSITIVE for Hx head injury, loss of consciousness and memory problems PSYCHIATRIC: NEGATIVE for changes in mood or affect This document serves as a record of the services and decisions personally performed and made by Kleber Ledesma PA-C. It was created on her behalf by Ann Collado, a trained medical record coder. The creation of this document is based the provider's statements to the medical record coder. Ann Collado May 29, 2016 1:21 PM OBJECTIVE: BP 126/68 (BP Location: Right arm, Patient Position: Chair, Cuff Size: Adult Regular) Pulse 72 Temp 98.1 ??F (36.7 ??C) (Oral) Resp 16 Wt 65.8 kg (145 lb) LMP 02/22/2010 SpO2 98% BMI 26.52 kg/m2 Body mass index is 26.52 kg/(m^2). GENERAL: healthy, alert and no distress MS: no gross musculoskeletal defects noted, no edema SKIN: no suspicious lesions or rashes NEURO: Normal strength and tone, mentation intact and speech normal PSYCH: mentation appears normal, affect normal/bright Diagnostic Test Results: none ASSESSMENT/PLAN: 1. Concussion without loss of consciousness, initial encounter Work note drawn up for patient to be off of work next Wednesday and Wednesday. If patinent does not feel comfortable going back to work she can call and get a new note. If not improving by then advised to make an appointment for . CT ordered and scheduled for tomorrow. Follow up if not improving. - CT Head w/o Contrast; Future 2. Nausea Will try zofran to help with nausea symptoms. Follow up as needed. - ondansetron (ZOFRAN) 8 MG tablet; Take 1 tablet (8 mg) by mouth every 8 hours as needed for nauseaDispense: 20 tablet; Refill: 1 The information in this document, created by the medical record coder for me, accurately reflects the services I personally performed and the decisions made by me. I have reviewed and approved this document for accuracy prior to leaving the patient care area. 1:21 PM 05/29/2016 Kleber Ledesma PA-C [facility] documented in this encounter Nursing Notes Gabrielle Garcia MA - 05/29/2016 1:00 PM CDT Chief Complaint Patient presents with ??? ER F/U Initial BP 126/68 (BP Location: Right arm, Patient Position: Chair, Cuff Size: Adult Regular) Pulse 72 Temp 98.1 ??F (36.7 ??C) (Oral) Resp 16 Wt 145 lb (65.8 kg) LMP 02/22/2010 SpO2 98% BMI 26.52 kg/m2 Estimated body mass index is 26.52 kg/(m^2) as calculated from the following: Height as of 03/17/16: 5' 2 (1.575 m). Weight as of this encounter: 145 lb (65.8 kg). Medication Reconciliation: complete Gabrielle Garcia MA documented in this encounter Plan of Treatment Not on filedocumented as of this encounter Results CT Head w/o Contrast (05/29/2016 4:08 PM CDT) Anatomical Region Laterality Modality Head, SUBRAD CT NEURO, SUBRAD CT NEURO, [facility] CT NEURO Computed Tomography Specimen (Source) Anatomical [...] of consciousness , initial encounter - Primary Nausea Nausea alone Concussion without loss of consciousness , initial encounter documented in this encounter Care Teams Keeper Head Relationship Specialty Start Date End Date Kleber Ledesma, PCP - General Physician Chucking Lathe Operator - 05/15/14 RACHNA Medical documented as of this encounter
--- OUTSIDE RECORDS SUMMARY | 2022-01-05 11:37 | XMS_ITS | Encounter Summary ---
:1960 Author Organization [place] Address [address] [place] [address]. [place] [address] Care Team Providers Name Role Phone Kleber Ledesma PA-C Primary Care Provider [phone] Reason for Visit Reason Comments Recheck Medication Hypertension Hyperlipidemia Encounter Details Date Type Department Care Team Description 10/07/2015 Office Visit [facility] Val[facility] ENCOUNTER--DISREGARD [place] [address] [facility] (Primary Dx) [facility], [address] [place] [address] [place], [place] [phone] (Wo rk) [id number] [phone] Social History Tobacco Use Types Packs/Day Years Used Date Smoking Tobacco: Former Smokeless Tobacco: Never Comments: quit smoking at 21 yrs old. sm oked 2 to 21/2 ppd Alcohol Use Standard Drinks/Week Comments Yes 2 (1 standard drink = 0.6 oz pure alcoho l) Sex Assigned at Date Recorded Not on file documented as of this encounter Progress Notes Kleber Ledesma PA-C - 10/20/2015 10:43 AM CDT This encounter was opened in error. Please disregard. documented in this encounter Plan of Treatment Not on filedocumented as of this encounter Visit Diagnoses Diagnosis ERRONEOUS ENCOUNTER--DISREGARD - Primary documented in this encounter Care Teams Door Glass Installer Relationship Specialty Start Date End Date Kleber Ledesma, PCP - General Physician Route Sales Specialist - 05/15/14 PA-C Medical documented as of this encounter
--- OUTSIDE RECORDS SUMMARY | 2022-01-05 11:37 | XMS_ITS | Encounter Summary ---
:1960 Author Organization [place] Address [address] [place] [address]. [place] [address] Care Team Providers Name Role Phone Kleber Ledesma PA-C Primary Care Provider [phone] Reason for Visit Reason Onset Date Comments Forms 05/04/2016 Health Care Provider Report Encounter Details Date Type Department Care Team Description 05/04/[address] [facility] Kleber Ledesma Forms ([facility] [place] RACHNA Valderrama Provider Report) [address] [place] [address] [address] [place] [address] [place], [place] [phone] (Wo rk) [phone] Social History Tobacco Use Types Packs/Day Years [...] Notes Telephone Encounter - Cherrie Mcknight - 05/05/2016 5:15 PM CDT Faxed form to [phone], then forms were sent to abstraction and a temporary copy is kept in a folder at the [facility]. Kishan Mcknight Hydraulic Repairer 05/05/16 Telephone Encounter - Kleber Ledesma PA-C - 05/05/2016 2:16 PM CDT Done. ajp Telephone Encounter - Deisy Elizabeth RN - 05/05/2016 8:18 AM CDT Form partially completed. Placed on Kleber's desk for further completion and signature. Deisy Elizabeth RN Telephone Encounter - Cherrie Mcknight - 05/04/2016 2:29 PM CDT Reason for call: Form Our goal is to have forms completed within 72 hours, however some forms may require a visit or additional information. Who is the form from? [facility] Where did the form come from? form was faxed in What clinic location was the form placed at? [facility] Where was the form placed? Given to MA/RN What number is listed as a contact on the form? [phone] Date needed: as soon as possible Fax to: [phone] Has the patient signed a consent form for release of information? NO Additional comments: Type of letter, form or note: worker's compensation Phone Number Pt can be reached at: Cell number on file: Telephone Information: Best Time: any Can we leave a detailed message on this number? NO documented in this encounter Plan of Treatment Not on filedocumented as of this encounter Visit Diagnoses Not on filedocumented in this encounter Care Teams Manager Social Relationship Specialty Start Date End Date Kleber Ledesma, PCP - General Physician Coal Shooter - 05/15/14 RACHNA Medical documented as of this encounter
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
--- OUTSIDE RECORDS SUMMARY | 2022-01-05 11:37 | XMS_ITS | Encounter Summary ---
:1960 Author Organization [facility] Address [address] [place] [address]. [place] [address] Care Team Providers Name Role Phone Kleber Ledesma PA-C Primary Care Provider [phone] Reason for Visit MARJORIE Physical Therapy (Routine) - Closed Specialty Diagnoses / Procedures Referred By Contact Refer red To Contact Physical Therapy Diagnoses WORK COMP cervicalgia /Dr. Kleber Ledesma @ [facility] /[facility] DOI:10-15-15 Kleber Ledesma, Denzel Coley, PT Procedures SPINE INITIAL PA-C [facility] [id number] [place] [address] [place] [address] [place] [address] [place] [address] Phone: Fax: Referral ID Status Reason Start Date Expiration Date Visits V isits Requested Authorized MARJORIE/WC/PT/NECK Closed 11/06/2015 11/05/2016 10 Encounter Details Date Type Department Care Team Description 12/02/2015 Therapy Visit [facility] [place] Cerv ical pain [facility] (Primary Dx) [place] [id number] [place] [id number] [place] [address] [address] [place] [address] [phone] Social History Tobacco Use Types Packs/Day Years [...] Name Priority Date/Time Associated Diagnosis Comme nts [facility] THERAPEUTIC Routine 12/02/2015 2:22 PM CDT Cervical pain EXERCISES [facility] ULTRASOUND THERAPY Routine 12/02/2015 2:22 PM CDT Cervical pain documented in this encounter Visit Diagnoses Diagnosis Cervical pain - Primary Cervicalgia documented in this encounter Care Teams Shop Cooper Relationship Specialty Start Date End Date Kleber Ledesma, PCP - General Physician Congressional Assistant - 05/15/14 PA-C Medical documented as of this encounter
--- OUTSIDE RECORDS SUMMARY | 2022-01-05 11:37 | XMS_ITS | Encounter Summary ---
:1960 Author Organization [facility] Address [address] [place] [address]. [place] [address] Care Team Providers Name Role Phone Kleber Ledesma PA-C Primary Care Provider [phone] Encounter Details Date Type Department Care Team Description 12/30/2015 [facility] [place] RACH[place] Valderrama [id number] [place] [address] [address] [place] [address] [place], [place] [phone] (Wo rk) [address] [phone] Social History Tobacco Use Types Packs/Day Years [...] Priority Date/Time Associated Diagnosis Comme nts XR CERVICAL SPINE Routine 12/30/2015 12:08 PM Cervicalgia Res ults for this 2/3 VIEWS HOSPITALIST NOCTURNIST PHYSICIAN procedure are i n the results section. documented in this encounter Results XR Cervical Spine 2/3 Views (12/30/2015 12:08 PM HOSPITALIST NOCTURNIST PHYSICIAN) Anatomical Region Laterality Modality Spine Computed Radiography Specimen (Source) Anatomical Location Collection Method / Collectio n Time Received Time / Laterality Volume Impressions 12/30/2015 1:36 PM HOSPITALIST NOCTURNIST PHYSICIAN IMPRESSION: ??Very mild degenerative changes of the mid cervical spine with loss of normal cervical lordosis th rough this region. Otherwise negative. PHIL BELTRAN MD Narrative 12/30/2015 1:36 PM HOSPITALIST NOCTURNIST PHYSICIAN XR CERVICAL SPINE 2/3 VWS ??12/30/2015 12:08 PM HISTORY: ??Cervicalgia COMPARISON: ??None. Procedure Note Phil Beltran MD - 6 XR CERVICAL SPINE 2/3 VWS 12/30/2015 12: 08 PM HISTORY: Cervicalgia COMPARISON: None. IMPRESSION: Very mild degenerative garnett es of the mid cervical spine with loss of normal cervical lordosis th rough this region. Otherwise negative. PHIL BELTRAN MD Kleber Ledesma PA-C [facility] DIAGNOSTIC IMAGING ORDER PB documented in this encounter Visit Diagnoses Diagnosis Cervicalgia documented in this encounter Care Teams Motor Hotel Manager Relationship Specialty Start Date End Date Kleber Ledesma, PCP - General Physician Cafeteria Cook - 05/15/14 [facility] Medical documented as of this encounter
--- OUTSIDE RECORDS SUMMARY | 2022-01-05 11:37 | XMS_ITS | Encounter Summary ---
:1960 Author Organization [facility] Address [address] [place] [address] Care Team Providers Name Role Phone Kleber Ledesma PA-C Primary Care Provider [phone] Reason for Visit Reason Comments Flu Shot Encounter Details Date Type Department Care Team Description 12/09/2015 [facility] Flu Shot Visit [facility], [address] [place] [address] Social History Tobacco Use Types Packs/Day Years Used Date Smoking Tobacco: Former Smokeless Tobacco: Never Comments: quit smoking at 21 yrs old. sm oked 2 to 21/2 ppd Alcohol Use Standard Drinks/Week Comments Yes 2 (1 standard drink = 0.6 oz pure alcoho l) Sex Assigned at Date Recorded Not on file documented as of this encounter Progress Notes Concepcion Nugent - 12/09/2015 10:22 AM CDT Injectable Influenza Immunization Documentation 1. Is the person to be vaccinated sick today? No 2. Does the person to be vaccinated have an allergy to eggs or to a component of the vaccine? No 3. Has the person to be vaccinated today ever had a serious reaction to influenza vaccine in the past? No 4. Has the person to be vaccinated ever had Guillain-Avon syndrome? No Form completed by Concepcion Nugent MA documented in this encounter Plan of Treatment Not on filedocumented as of this encounter Visit Diagnoses Diagnosis Need for prophylactic vaccination and in oculation against influenza - Primary documented in this encounter Care Teams Nurses Director Relationship Specialty Start Date End Date Kleber Ledesma, PCP - General Physician Land Development Manager - 05/15/14 PA-C Medical documented as of this encounter
--- OUTSIDE RECORDS SUMMARY | 2022-01-05 11:37 | XMS_ITS | Encounter Summary ---
:1960 Author Organization [facility] Address [address] [place] [address]. [place] [address] Care Team Providers Name Role Phone Kleber Ledesma PA-C Primary Care Provider [phone] Reason for Visit Reason Comments Work Comp Encounter Details Date Type Department Care Team Description 12/16/2015 Office Visit [facility] Kleber Ledesma (Primary Clinic [place] RACNHA Valderrama Dx) [address] [address] [address] [facility], [address] [place], [place] [address] [place] [address] (Wo rk) [address] [phone] Social History Tobacco Use Types Packs/Day Years [...] Sign Reading Time Taken Comments Blood Pressure 116/70 12/16/2015 10:10 AM PAN PUSHER Pulse 68 12/16/2015 10:10 AM PAN PUSHER Temperature 36.8 ??C (98.2 ??F) 12/16/2015 10:10 AM PAN PUSHER Respiratory Rate - - Oxygen Saturation 96% 12/16/2015 10:10 AM PAN PUSHER Inhaled Oxygen Concentration - - Weight 66.1 kg (145 lb 11.2 oz) 12/16/2015 10:10 AM PAN PUSHER Height - - Body Mass Index 26.65 02/19/2015 5:37 PM PAN PUSHER documented in this encounter Progress Notes Kleber Ledesma PA-C - 12/16/2015 10:02 AM CST SUBJECTIVE: Amie Scott is a 55 year old female who presents to clinic today for the following health issues: Musculoskeletal problem/pain ?? Duration: October 14 ?? Description Location: Right shoulder and neck ?? Intensity: 3/10 ?? Accompanying signs and symptoms: left hand tingling at times but pain is on right ?? History Previous similar problem: no Previous evaluation: none ?? Precipitating or alleviating factors: Trauma or overuse: YES- work comp in October- lifting Aggravating factors include: when moving her neck certain ways, lifting, working ?? Therapies tried and outcome: Pt- not helping, Advil, muscle relaxer - wondering if she needs and xray? - she thinks that PT is a waste of her time - has not been taking muscle relaxer. Some days are better but some days are still about the same asoriginal injury. Does use ice and heat on occasion. - we never did any work restrictions so still working full schedule. Problem list and histories reviewed & adjusted, as indicated. Additional history: as documented Problem list, Medication list, Allergies, and Medical/Social/Surgical histories reviewed in EPIC andupdated as appropriate. ROS: Constitutional, HEENT, cardiovascular, pulmonary, gi and gu systems are negative, except as otherwise noted. OBJECTIVE: BP 116/70 mmHg Pulse 68 Temp(Src) 98.2 ??F (36.8 ??C) (Oral) Wt 145 lb 11.2 oz (66.089 kg) SpO2 96% LMP 02/22/2010 Body mass index is 26.64 kg/(m^2). GENERAL: healthy, alert and no distress NECK: no adenopathy, no asymmetry, masses, or scars and thyroid normal to palpation MS: neck exam shows normal strength and ROM is decreased- TTP along SCM muscle and into trapezius and along spine of scapula SKIN: no suspicious lesions or rashes NEURO: Normal strength and tone, mentation intact and speech normal PSYCH: mentation appears normal, affect normal/bright Diagnostic Test Results: none ASSESSMENT/PLAN: 1. Cervicalgia Think musculoskeletal pain- try ice/heat and muscle relaxer at night. Naproxen BID with food. Work restrictions for one week to see if this will help with the pain. There are some particular actions atwork that really bother her. - naproxen (NAPROSYN) 500 MG tablet; Take 1 tablet (500 mg) by mouth 2 times daily (with meals) Dispense: 60 tablet; Refill: 1 - cyclobenzaprine (FLEXERIL) 5 MG tablet; Take 0.5-1 tablets (2.5-5 mg) by mouth At Bedtime Dispense: 30 tablet; Refill: 0 Kleber Ledesma PA-C [facility] PUSHER documented in this encounter Nursing Notes Meredith Garcia - 12/16/2015 10:12 AM CST Chief Complaint Patient presents with ??? Work Comp Initial BP 116/70 mmHg Pulse 68 Temp(Src) 98.2 ??F (36.8 ??C) (Oral) Wt 145 lb 11.2 oz (66.089kg) SpO2 96% LMP 02/22/2010 Estimated body mass index is 26.64 kg/(m^2) as calculated from the following: Height as of 02/19/15: 5' 2 (1.575 m). Weight as of this encounter: 145 lb 11.2 oz (66.089 kg). BP completed using cuff size: paulette Garcia MA PUSHER documented in this encounter Plan of Treatment Not on filedocumented as of this encounter Visit Diagnoses Diagnosis Cervicalgia - Primary documented in this encounter Care Teams Heavy Cleaner Relationship Specialty Start Date End Date Kleber Ledesma, PCP - General Physician Transit Operator - 05/15/14 [facility] Medical documented as of this encounter
--- OUTSIDE RECORDS SUMMARY | 2022-01-05 11:37 | XMS_ITS | Encounter Summary ---
:1960 Author Organization [facility] Address [address] [place] [address] Care Team Providers Name Role Phone Kleber Ledesma PA-C Primary Care Provider [phone] Reason for Visit Reason Comments Work Comp RECHECK Encounter Details Date Type Department Care Team Description 12/30/2015 Office Visit [facility] Kleber Ledesma (Primary Clinic [place] Valderr[place] Dx) [address] [address] [address] [facility], [address] [place], [place] [address] [place] [address] (Wo rk) [address] [phone] Social History Tobacco Use Types Packs/Day Years [...] Reading Time Taken Comments Blood Pressure 120/76 12/30/2015 11:10 AM LICENSED REAL ESTATE BROKER Pulse 60 12/30/2015 11:10 AM LICENSED REAL ESTATE BROKER Temperature 36.8 ??C (98.2 ??F) 12/30/2015 11:10 AM LICENSED REAL ESTATE BROKER Respiratory Rate 16 12/30/2015 11:10 AM LICENSED REAL ESTATE BROKER Oxygen Saturation - - Inhaled Oxygen Concentration - - Weight 65.3 kg (144 lb) 12/30/2015 11:10 AM LICENSED REAL ESTATE BROKER Height - - Body Mass Index 26.34 02/19/2015 5:37 PM LICENSED REAL ESTATE BROKER documented in this encounter Patient Instructions Patient InstructionsPeKleber mitchell PA-C - 12/30/2015 11:36 AM LICENSED REAL ESTATE BROKER Ultrasound, TENS- make next physical therapy appointment at [place]. NSED REAL ESTATE BROKER documented in this encounter Progress Notes Kleber Ledesma PA-C - 12/30/2015 10:06 AM CST SUBJECTIVE: Amie Scott is a 55 year old female who presents to clinic today for the following health issues: Recheck right side shoulder/neck - patient states it is doing a lot better, but is concerned due to doing light house work last night and having pain again. Has had one week off work which helped a lot. Last night had a flare when she lifted a piece of furniture. Same pain came back. She is worried as her job requires lifting. Wondering about xrays or whatelse can be done. Tried the naproxen again. Thinks it does give her a slight headache but might takethe edge off the neck/shoulder pain. She has concerns today and would like xrays done on the neck and shoulder both. Wondering why the pain is now affecting her shoulder. Social History Substance Use Topics ??? Smoking status: Former Smoker ??? Smokeless tobacco: Never Used Comment: quit smoking at 21 yrs old. smoked 2 to 21/2 ppd ??? Alcohol Use: 1.2 oz/week 1 Glasses of wine, 1 Shots of liquor per week Problem list and histories reviewed & adjusted, as indicated. Additional history: as documented Problem list, Medication list, Allergies, and Medical/Social/Surgical histories reviewed in [facility] andupdated as appropriate. ROS: Constitutional, HEENT, cardiovascular, pulmonary, gi and gu systems are negative, except as otherwise noted. OBJECTIVE: BP 120/76 mmHg Pulse 60 Temp(Src) 98.2 ??F (36.8 ??C) (Oral) Resp 16 Wt 144 lb (65.318 kg) LMP 02/22/2010 Body mass index is 26.33 kg/(m^2). GENERAL: healthy, alert and no distress MS: RUE exam shows good ROM of shoulder without deformity, no impingement signs and neck exam shows continued tenderness of right trapezius muscles, decreased ROM of neck and tenderness of SCM muscle SKIN: no suspicious lesions or rashes NEURO: Normal strength and tone, mentation intact and speech normal BACK: no CVA tenderness, no paralumbar tenderness PSYCH: mentation appears normal, affect flat and anxious Diagnostic Test Results: Xray - no acute abnormalities noted ASSESSMENT/PLAN: 1. Cervicalgia She agreed to go back and try physical therapy again with modalities such as ultrasound and TENS stimulation. Note for more time off work. Continue NSAID and muscle relaxant as needed. Can consider referral soon if she does not do well with above therapies. - XR Cervical Spine 2/3 Views; Future - XR Shoulder Right G/E 3 Views; Future Kleber Ledesma PA-C [facility] NSED REAL ESTATE BROKER documented in this encounter Nursing Notes Gabrielle Garcia MA - 12/30/2015 11:16 AM CST Chief Complaint Patient presents with ??? Work Comp ??? RECHECK Initial BP 120/76 mmHg Pulse 60 Temp(Src) 98.2 ??F (36.8 ??C) (Oral) Resp 16 Wt 144 lb (65.318 kg) LMP 02/22/2010 Estimated body mass index is 26.33 kg/(m^2) as calculated from the following: Height as of 16: 5' 2 (1.575 m). Weight as of this encounter: 144 lb (65.318 kg). BP completed using cuff size: regular Gabrielle Garcia MA NSED REAL ESTATE BROKER documented in this encounter Plan of Treatment Not on filedocumented as of this encounter Results XR Shoulder Right G/E 3 Views (12/30/2015 12:09 PM LICENSED REAL ESTATE BROKER) Anatomical Region Laterality Modality Right Shoulder Right Computed Radiography Specimen (Source) Anatomical Location Collection Method / Collectio n Time Received Time / Laterality Volume Impressions 12/30/2015 1:35 PM LICENSED REAL ESTATE BROKER IMPRESSION: ??Negative. PHIL BELTRAN MD Narrative 12/30/2015 1:35 PM LICENSED REAL ESTATE BROKER XR SHOULDER RT G/E 3 VW ??12/30/2015 12:09 PM HISTORY: ??Cervicalgia COMPARISON: ??None. Procedure Note Phil Beltran MD - 6 XR SHOULDER RT G/E 3 VW 12/30/2015 12:09 PM HISTORY: Cervicalgia COMPARISON: None. IMPRESSION: Negative. PHIL BELTRAN MD Kleber Ledesma PA-C IMG DIAGNOSTIC IMAGING ORDER PB XR Cervical Spine 2/3 Views (12/30/2015 12:08 PM LICENSED REAL ESTATE BROKER) Anatomical Region Laterality Modality Spine Computed Radiography Specimen (Source) Anatomical Location Collection Method / Collectio n Time Received Time / Laterality Volume Impressions 12/30/2015 1:36 PM LICENSED REAL ESTATE BROKER IMPRESSION: ??Very mild degenerative changes of the mid cervical spine with loss of normal cervical lordosis th rough this region. Otherwise negative. PHIL BELTRAN MD Narrative 12/30/2015 1:36 PM LICENSED REAL ESTATE BROKER XR CERVICAL SPINE 2/3 VWS ??12/30/2015 12:08 [...] in this encounter Visit Diagnoses Diagnosis Cervicalgia - Primary Cervicalgia Cervicalgia documented in this encounter Care Teams Bioinformatics Technician Relationship Specialty Start Date End Date Kleber Ledesma, PCP - General Physician University Services Program Associate - 05/15/14 [facility] Medical documented as of this encounter
--- OUTSIDE RECORDS SUMMARY | 2022-01-05 11:37 | XMS_ITS | Encounter Summary ---
:1960 Author Organization [facility] Address [address] [place] [address]. [place] [address] Care Team Providers Name Role Phone Kleber Ledesma PA-C Primary Care Provider [phone] Reason for Visit Reason Comments Work Comp Neck Injury Encounter Details Date Type Department Care Team Description 01/06/2016 Office Visit [facility] Kleber Ledesma (Primary Clinic [place]) [id number] [address] [address] [facility], [address] [place], [place] [id number] [place] [address] (Wo rk) [id number] [phone] Social History Tobacco Use Types Packs/Day Years [...] Sign Reading Time Taken Comments Blood Pressure 130/70 01/06/2016 11:07 AM HARD CANDY SPINNER Pulse 60 01/06/2016 11:07 AM HARD CANDY SPINNER Temperature 36.7 ??C (98.1 ??F) 01/06/2016 11:07 AM HARD CANDY SPINNER Respiratory Rate 16 01/06/2016 11:07 AM HARD CANDY SPINNER Oxygen Saturation - - Inhaled Oxygen Concentration - - Weight 67.6 kg (149 lb) 01/06/2016 11:07 AM HARD CANDY SPINNER Height - - Body Mass Index 27.25 02/19/2015 5:37 PM HARD CANDY SPINNER documented in this encounter Progress Notes Kleber Ledesma PA-C - 01/06/2016 10:58 AM CST SUBJECTIVE: Amie Scott is a 55 year old female who presents to clinic today for the following health issues: Recheck/follow up/work comp neck injury - patient states she went to therapy twice last week and wasreally sore the next couple days after, but really liked the therapist. She states she is still sore today from last visit on Wednesday. They are doing some ultrasound and newexercises. Taking Naproxen which does help but she doesn't like taking it. She feels strongly that she needs to get back to work. Needs a note with specific restrictions so she can go back. Problem list and histories reviewed & adjusted, as indicated. Additional history: as documented Problem list, Medication list, Allergies, and Medical/Social/Surgical histories reviewed in EPIC andupdated as appropriate. ROS: Constitutional, HEENT, cardiovascular, pulmonary, gi and gu systems are negative, except as otherwise noted. OBJECTIVE: BP 130/70 mmHg Pulse 60 Temp(Src) 98.1 ??F (36.7 ??C) (Oral) Resp 16 Wt 149 lb (67.586 kg) LMP 02/22/2010 Body mass index is 27.25 kg/(m^2). GENERAL: healthy, alert and no distress MS: neck exam shows continued limited ROM and tightness in trapezium and SCM muscles on right SKIN: no suspicious lesions or rashes NEURO: Normal strength and tone, mentation intact and speech normal PSYCH: mentation appears normal, affect flat and anxious Diagnostic Test Results: none ASSESSMENT/PLAN: 1. Cervicalgia - note written to go back to work with restrictions. Continue with therapy. And follow up one week with progress. Kleber Ledesma PA-C [facility] CANDY SPINNER documented in this encounter Nursing Notes Gabrielle Garcia MA - 01/06/2016 11:11 AM CST Chief Complaint Patient presents with ??? Work Comp ??? Neck Injury Initial BP 130/70 mmHg Pulse 60 Temp(Src) 98.1 ??F (36.7 ??C) (Oral) Resp 16 Wt 149 lb (67.586 kg) LMP 02/22/2010 Estimated body mass index is 27.25 kg/(m^2) as calculated from the following: Height as of 02/19/15: 5' 2 (1.575 m). Weight as of this encounter: 149 lb (67.586 kg). BP completed using cuff size: regular Gabrielle Garcia MA CANDY SPINNER documented in this encounter Plan of Treatment Not on filedocumented as of this encounter Visit Diagnoses Diagnosis Cervicalgia - Primary documented in this encounter Care Teams Rn Neonatal Icu Relationship Specialty Start Date End Date Kleber Ledesma, PCP - General Physician Wash Tank Tender - 05/15/14 [facility] documented as of this encounter
--- OUTSIDE RECORDS SUMMARY | 2022-01-05 11:38 | XMS_ITS | Encounter Summary ---
:1960 Author Organization [facility] Address [address] [place] [id number] Care Team Providers Name Role Phone Kleber Ledesma PA-C Primary Care Provider [phone] Reason for Visit (Routine) - Closed Specialty Diagnoses / Procedures Referred By Contact Refer red To Contact Cardiology Diagnoses per Ruslan, Chest discomfort, went over prep/gave copy Sh Cv Ct Procedures CT CORONARY ARTERY ANGIO [address] [facility] [address] [place] [address] Phone: Referral ID Status Reason Start Date Expiration Date Visits Requ ested Visits Authorized [id number] Closed 06/08/2014 06/08/2015 1 1 Encounter Details Date Type Department Care Team Description 06/11/2014 Hospital Encounter [facility] Jose Ramon Mercer C hest discomfort [facility] MD Heart Care [facility] AND [address] [facility] [address] [place] [address] [address] [phone] [place] [address] Social History Tobacco Use Types Packs/Day Years Used Date Smoking Tobacco: Former Smokeless Tobacco: Never Comments: quit smoking at 21 yrs old. sm oked 2 to 21/2 ppd Alcohol Use Standard Drinks/Week Comments Yes 0 (1 standard drink = 0.6 oz pure alcoho l) very casual Sex Assigned at Date Recorded Not on file documented as of this encounter Medications at Time of Discharge Medication Sig Dispensed Refills Start Date End Date atenolol-chlorthalidone Take 1 tablet by 30 tablet 5 201409/24/2014 (TENORETIC) 50-25 MG per mouth daily tabletIndications: HTN (hypertension) CALCIUM CARBONATE PO Take 2,400 mg by 0 09/22/2019 mouth daily Cholecalciferol (VITAMIN D3 Take 2,000 Units 0 09/22/2019 PO) by mouth daily Coenzyme Q10 (CO Q 10 PO) Take 100 mg by 0 09/22/2019 mouth 2 times daily Esomeprazole Magnesium Take by mouth 0 09/01/2014 (NEXIUM 24HR PO) daily OTC FOLIC ACID PO Take 800 mcg by 0 2014 mouth daily GABAPENTIN PO Take 100 mg by 0 015 mouth At Bedtime Ginkgo Biloba 40 MG TABS Take 120 mg by 0 09/22/2019 mouth daily Multiple Vitamins-Minerals Take 1 tablet by 0 09/22/2019 (OCUVITE PO) mouth daily Dickens-3 Fatty Acids Take 2.4 g by 0 (OMEGA-3 FISH OIL PO) mouth daily simvastatin (ZOCOR) 20 MG Take 1 tablet (20 30 tablet 5 09/24/2014 tabletIndications: mg) by mouth At CARDIOVASCULAR SCREENING; Bedtime LDL GOAL LESS THAN 130 documented as of this encounter Plan of Treatment Not on filedocumented as of this encounter Procedures Procedure Name Priority Date/Time Associated Comments Diagnosis CTA ANGIOGRAM Routine 06/11/2014 12:38 Chest discomfort Result s for this CORONARY ARTERY PM CDT procedure ar e in the results section. RADIOLOGIST CONSULT Routine 06/11/2014 12:38 Chest discomfort Results for this FOR CARDIOLOGY PM CDT procedure are in the results section. documented in this encounter Results Radiologist Consult For Cardiology (06/11/2014 12:38 PM CDT) Anatomical Region Laterality Modality Computed Tomography Specimen (Source) Anatomical Location Collection Method / Collectio n Time Received Time / Laterality Volume Impressions 06/11/2014 5:22 PM CDT IMPRESSION: 1. No abnormally-enlarged mediastinal ly mph nodes. 2. The visible solid organs in the upper abdomen are unremarkable. 3. No acute osseous abnormality. 4. Minimal bibasilar atelectasis. 5. No pulmonary masses. PHILLIP NICHOLSON MD Narrative 06/11/2014 5:22 PM CDT RADIOLOGIST CONSULT FOR CARDIOLOGY 06/11/2014 12:38 PM HISTORY: 54-year-old woman with chest pa in. COMPARISON: None. TECHNIQUE: Axial and coronal CTA images were obtained through the heart before and after the uneventful ad ministration of Isovue-370 intravenous contrast given for a total o f 105 mL. FINDINGS: Please note this report will f ocus only on soft tissue findings. Please see separate report for all cardiac, coronary arterial, systemic arterial, systemic ve nous, pulmonary arterial, and pulmonary venous findings. Procedure Note Phillip Nicholson MD - 06/11/2014 RADIOLOGIST CONSULT FOR CARDIOLOGY 015 12:38 PM HISTORY: 54-year-old woman with chest pa in. COMPARISON: None. TECHNIQUE: Axial and coronal CTA images were obtained through the heart before and after the uneventful ad ministration of Isovue-370 intravenous contrast given for a total o f 105 mL. FINDINGS: Please note this report will f ocus only on soft tissue findings. Please see separate report for all cardiac, coronary arterial, systemic arterial, systemic ve nous, pulmonary arterial, and pulmonary venous findings. IMPRESSION IMPRESSION: 1. No abnormally-enlarged mediastinal ly mph nodes. 2. The visible solid organs in the upper abdomen are unremarkable. 3. No acute osseous abnormality. 4. Minimal bibasilar atelectasis. 5. No pulmonary masses. PHILLIP NICHOLSON MD Jose Ramon Mercer MD IMG DIAGNOSTIC IMAGING ORDER PB CT Angiogram coronary artery (06/11/2014 12:38 PM CDT) Anatomical Region Laterality Modality Cardio, SUBRAD CT BODY, UMP CT CHEST Com puted Tomography Specimen (Source) Anatomical Location Collection Method / Collectio n Time Received Time / Laterality Volume Impressions 06/11/2014 3:48 PM CDT IMPRESSION: 1. Total Agatston score 0, placing the p atient in the 0 percentile when compared to age and gender matched control group. 2. Normal coronary anatomy with no detec table stenosis or plaque. 3. ??Please review Radiology report for incidental noncardiac findings that will follow separately. FINDINGS: CORONARY CALCIUM SCORE: The total Agatst on calcium score is 0, Left main: 0, left anterior descendin, ?? circumflex: 0, right coronary artery: 0. This places the patient in th e 0th percentile when compared to age and gender matched control group. CORONARY CT ANGIOGRAPHY DOMINANCE: Right dominant system. LEFT MAIN: The left main arises normally from the left coronary cusp and is widely patent without any stenosi s or plaque. LEFT ANTERIOR DESCENDING: The left anter ior descending and its major diagonal branches are widely patent with out any detectable stenosis or plaque. CIRCUMFLEX: The circumflex and its major branches are widely patent without any detectable stenosis or plaqu e. RIGHT CORONARY ARTERY: The right coronar y artery and its major branches are widely patent without any d etectable stenosis or plaque. ADDITIONAL FINDINGS: The proximal ascending aorta is normal i n size. Normal pulmonary venous anatomy with all four pulmonary veins draining into the left atrium. ?? There is no left ventricular mass or thr ombus. Normal pericardial thickness. There is n o pericardial effusion. The proximal pulmonary arteries are well opacified. Please review Radiology report for incid ental noncardiac findings that will follow separately. HAY BUSTOS MD Narrative 06/11/2014 3:48 PM CDT Procedure: CTA ANGIOGRAM CORONARY ARTERY Examination Date: 06/11/2014 12:38 PM Indication: ??Chest discomfort. Clinical Information: Other chest pain Ordering Physician: Ruslan ?? Overall quality of the study: Adequate. PROCEDURE:After obtaining informed conse nt, the patient was positioned in the scanner gantry and an IV was star jameson using an 18 gauge IV in the right antecubital fossa. ??Utilizing 105 cc ??Isovue 370, wasted 0 cc, multi-slice computed tomography was performed with a Siemens Dual Source Flash scanner without incident. B eta-blockers were required to optimize heart rate, patient was given M etoprolol 50 mg Oral, Metoprolol 40 mg ??IV. The patient was g iven pre-medication of sublingual Nitrostat 0.4 mg prior to sca nning. Coronary artery calcium score was performed using the Flash scan ner protocol. CTA was performed in the sequential mode at a he art rate of 72 bpm with 100 kVp. Images were reconstructed and laura zed on a Ze-gen workstation. Scan protocol was optimized to minimize radiation exposure. The total radiation exposure i ncluding calcium score was calculated to be 139 DLP, and 1.9 mSv. Procedure Note Hay Bustos MD - 06/11/2014F ormatting of this note might be different from the original. Procedure: CTA ANGIOGRAM CORONARY ARTERY Examination Date: 06/11/2014 12:38 PM Indication: Chest discomfort. Clinical Information: Other chest pain Ordering Physician: Ruslan Overall quality of the study: Adequate. PROCEDURE:After obtaining informed conse nt, the patient was positioned in the scanner gantry and an IV was star jameson using an 18 gauge IV in the right antecubital fossa. Utilizing 1 05 cc Isovue 370, wasted 0 cc, multi-slice computed tomography was performed with a Siemens Dual Source Flash scanner without incident. B eta-blockers were required to optimize heart rate, patient was given M etoprolol 50 mg Oral, Metoprolol 40 mg IV. The patient was giv en pre-medication of sublingual Nitrostat 0.4 mg prior to sca nning. Coronary artery calcium score was performed using the Flash scan ner protocol. CTA was performed in the sequential mode at a he art rate of 72 bpm with 100 kVp. Images were reconstructed and laura zed on a Ze-gen workstation. Scan protocol was optimized to minimize radiation exposure. The total radiation exposure i ncluding calcium score was calculated to be 139 DLP, and 1.9 mSv. IMPRESSION IMPRESSION: 1. Total Agatston score 0, placing the p atient in the 0 percentile when compared to age and gender matched control group. 2. Normal coronary anatomy with no detec table stenosis or plaque. 3. Please review Radiology report for in cidental noncardiac findings that will follow separately. FINDINGS: CORONARY CALCIUM SCORE: The total Agatst on calcium score is 0, Left main: 0, left anterior descendin, ci rcumflex: 0, right coronary artery: 0. This places the patient in th e 0th percentile when compared to age and gender matched control group. CORONARY CT ANGIOGRAPHY DOMINANCE: Right dominant system. LEFT MAIN: The left main arises normally from the left coronary cusp and is widely patent without any stenosi s or plaque. LEFT ANTERIOR DESCENDING: The left anter ior descending and its major diagonal branches are widely patent with out any detectable stenosis or plaque. CIRCUMFLEX: The circumflex and its major branches are widely patent without any detectable stenosis or plaqu e. RIGHT CORONARY ARTERY: The right coronar y artery and its major branches are widely patent without any d etectable stenosis or plaque. ADDITIONAL FINDINGS: The proximal ascending aorta is normal i n size. Normal pulmonary venous anatomy with all four pulmonary veins draining into the left atrium. There is no left ventricular mass or thr ombus. Normal pericardial thickness. There is n o pericardial effusion. The proximal pulmonary arteries are well opacified. Please review Radiology report for incid ental noncardiac findings that will follow separately. HAY BUSTOS MD Jose Ramon Mercer MD IMG CT ORDERABLES documented in this encounter Visit Diagnoses Diagnosis Chest discomfort Other chest pain documented in this encounter Administered Medications Inactive Administered Medications - up to 3 most recent administrations Medication Order MAR Action Action Date Dose Rate Site 0.9% sodium chloride BOLUS New Bag 06/11/2014 12:41 PM CDT 100 mLs Intravenous, 100 mL, EVERY 5 MIN PRN, other, For IV flush after the contrast medication is given., Starting on Wed06/11/14 at 1036, For 2 doses, May repeat dose in 5 minutes if additional dose of contrast is given. Max 2 doses. Pull sodium chloride out of the normal saline bag with a syringe and put it in the power injector. Inject the medication as a flush after the contrast medication given., Cardiac Intra-procedure iopamidol (ISOVUE-370) 76% solution 5-200 Given 06/11/2014 1 2:40 PM CDT 105 mLs mL 5-200 mL, Intravenous, EVERY 5 MIN PRN, for contrast procedure, Starting on Wed06/11/14 at 1036, For 2 doses, May repeat every 5 min PRN. Max total of 2 doses. Not to exceed 225 mL total dose. This dose may be given by provider or cardiac CT procedure staff as indicated per scanning protocol requirements or as verbally directed by the reading Buttermilk Drier Operator., Cardiac Intra-procedure metoprolol (LOPRESSOR) injection 5-15 mg Given 06/11/2014 11:50 AM CDT 10 mg 5-15 mg, Intravenous, EVERY 3 MIN PRN, other, during procedure for maintaining HR less than 60 bpm.?MAX total dose = 40 mg., Starting on Wed06/11/14 at 1036, May give every 3 minutes, as needed during the procedure as verbally directed by provider. Vital signs to be monitored during the administration of the drug. HOLD for SBP less than 90 mmHg. Dose to be given by CT nursing staff. Discontinue after procedure., Cardiac Intra-procedure Given 06/11/2014 11:47 AM CDT 10 mg Given 06/11/2014 11:40 AM CDT 10 mg metoprolol (LOPRESSOR) tablet 50-100 mg Given 06/11/2014 10:36 AM CDT 50 mg 50-100 mg, Oral, ONCE PRN, for patients in whom the heart rate is 55 bpm or greater and SBP greater than 90 mm Hg, Starting on Wed06/11/14 at 1036, For 1 dose, If patient has not received metoprolol prior to the procedure. - 50 mg if heart rate is 55-59 bpm and SBP greater than 90 mmHg - 100 mg if heart rate is 60 bpm or greater and SBP greater than 90 mmHg HOLD for SBP less than 90 mmHg. Give one hour PRIOR to procedure. Dose to be given by CT nursing staff. Discontinue after procedure., Cardiac Intra-procedure nitroglycerin (NITROSTAT) SL tablet 0.4 mg Given 06/11/2014 11:40 AM CDT 0.4 mg 0.4 mg, Sublingual, EVERY 15 MIN PRN, other, Administer the first dose when the patient is on the table just before starting CT scan., Starting on Wed06/11/14 at 1036, For 2 doses, If there is a delay in the procedure, administer a second dose if necessary 15 minutes after the initial dose IF directed by the provider prior to the start of the exam. Hold for SBP less than 90 mmHg - notify provider. Notify provider prior to giving medication if patient has a history of severe aortic stenosis., Cardiac Intra-procedure sodium chloride (PF) 0.9% PF flush 5-10 mL Given 06/11/2014 11:51 AM CDT 10 mLs 5-10 mL, Intravenous, EVERY 5 MIN PRN, other, for peripheral IV flush post IV meds, Starting on Wed06/11/14 at 1036, Cardiac Intra-procedure documented in this encounter Care Teams Hebrew Cantor Relationship Specialty Start Date End Date Kleber Ledesma, PCP - General Physician Sericulturist - 05/15/14 PAKerrie Medical documented as of this encounter
--- OUTSIDE RECORDS SUMMARY | 2022-01-05 11:38 | XMS_ITS | Encounter Summary ---
:1960 Author Organization [facility] Address [address] [place] [address]. [place] [address] Care Team Providers Name Role Phone Kleber Ng PA-C Primary Care Provider [phone] Reason for Visit Reason Comments Physical w/pap Blood Draw patient IS fasting. Encounter Details Date Type Department Care Team Description 09/24/2014 Office Visit [facility] Kleber Ng general medical examination at a health care facility (Primary Dx); Clinic Thomas Valderrama PA-C Screening for malignant neoplasm of cerv ix; [place] [id number] [facility] CARDIOVASCULAR SCREENING; LDL GOAL LESS THAN 130; [address], [address] [place], [place] Hypertension goal BP (blood pressure) < 140/90; [place] [address] Menopausal syndrome (hot flashes); [id number] Bilateral impacted cerumen; Dysfunction of eustachian tube, bilatera l Social History Tobacco Use Types Packs/Day Years [...] Sign Reading Time Taken Comments Blood Pressure 110/74 09/24/2014 9:15 AM CDT Pulse 72 09/24/2014 9:15 AM CDT Temperature 36.8 ??C (98.3 ??F) 09/24/2014 9:15 AM CDT Respiratory Rate 20 09/24/2014 9:15 AM CDT Oxygen Saturation - - Inhaled Oxygen Concentration - - Weight 62.1 kg (137 lb) 09/24/2014 9:15 AM CDT Height 156.2 cm (5' 1.5) 09/24/2014 9:15 AM CDT Body Mass Index 25.47 09/24/2014 9:15 AM CDT documented in this encounter Patient Instructions Patient InstructionsGabrielle Garcia MA - 09/21/2014 4:30 PM CDT Preventive Health Recommendations Female Ages [...] instead of white grains and rice. ??? For bone health: Eat calcium-rich foods or take calcium pills (500 to 600 mg) twice a day with food. Also take vitamin D (1000 IUs) each day. Lifestyle ??? Exercise at least 150 minutes [...] encounter Progress Notes Kleber Ng PA-C - 09/21/2014 4:30 PM CDT SUBJECTIVE: CC: Micah Scott is an 54 year old woman who presents for preventive health visit. Healthy Habits: ?? Do you get at least three servings of calcium containing foods daily (dairy, green leafy vegetables, etc.)? no, taking calcium and/or vitamin D supplement: yes - ?? Amount of exercise or daily activities, outside of work: 5 day(s) per week ?? Problems taking medications regularly No ?? Medication side effects: No ?? Have you had an eye exam in the past two years? Has up coming appt 10/01/14 ?? Do you see a dentist twice per year? no ?? Do you have sleep apnea, excessive snoring or daytime drowsiness?yes Other concerns to address: Medications- refills Ear wax? When yawning having pain in throat. Some post nasal drainage. Has been seen for ear pain inrecent past, still having some troubles. Today's PHQ-2 Score: 0 Abuse: Current or Past(Physical, Sexual or Emotional)- No Do you feel safe in your environment - Yes History Substance Use Topics ??? Smoking status: Former Smoker ??? Smokeless tobacco: Never Used Comment: quit smoking at 21 yrs old. smoked 2 to 20/2 ppd ??? Alcohol Use: 1.2 oz/week 1 Glasses of wine, 1 Shots of liquor per week The patient does not drink >3 drinks per day nor >7 drinks per week. Recent Labs Lab Test 05/29/14 0257 CHOL 121 HDL 57 LDL 47 TRIG 86 CHOLHDLRATIO 2.1 Reviewed orders with patient. Reviewed health maintenance and updated orders accordingly - Yes Mammo Decision Support: Patient over age 50, mutual decision to screen reflected in health maintenance. Last Mammo:Ma Screening Digital Bilat - Future (s+30) 09/10/2014 Narrative: MA SCREENING DIGITAL BILATERAL 09/10/2014 11:04 AM HISTORY: Screening. No new breast complaints. COMPARISON: 12/07/2011, 05/19/2007 TECHNIQUE: Digital mammography with CAD is performed. BREAST DENSITY: Heterogeneously dense. COMMENTS: No findings of suspicion for malignancy. History of abnormal Pap smear: NO - age 30- 65 PAP every 3 years recommended All Histories reviewed and updated in [facility]. PROBLEMS TO ADD ON... Hyperlipidemia Follow-Up ?? Rate your low fat/cholesterol diet?: good ?? Taking statin? Yes, no muscle aches from statin ?? Other lipid medications/supplements?: none Hypertension Follow-up ?? Outpatient blood pressures are not being checked. ?? Low Salt Diet: no added salt ROS: C: NEGATIVE for fever, chills, change in weight I: NEGATIVE for worrisome rashes, moles or lesions E: NEGATIVE for vision changes or irritation ENT: NEGATIVE for ear, mouth and throat problems R: NEGATIVE for significant cough or SOB B: NEGATIVE for masses, tenderness or discharge CV: NEGATIVE for chest pain, palpitations or peripheral edema GI: NEGATIVE for nausea, abdominal pain, heartburn, or change in bowel habits : NEGATIVE for unusual urinary or vaginal symptoms. No vaginal bleeding. M: NEGATIVE for significant arthralgias or myalgia N: NEGATIVE for weakness, dizziness or paresthesias P: NEGATIVE for changes in mood or affect Patient mentions having hot flashes, not sleeping, having memory difficulty- increase gabapentin that she takes for this? Problem list, Medication list, Allergies, and Medical/Social/Surgical histories reviewed in [facility] andupdated as appropriate. Labs reviewed in [facility] BP Readings from Last 3 Encounters: 09/24/14 110/74 09/10/14 122/80 09/02/14 135/86 Wt Readings from Last 3 Encounters: 09/24/14 137 lb (62.143 kg) 09/10/14 138 lb 3.2 oz (62.687 kg) 09/01/14 139 lb 1.6 oz (63.095 kg) OBJECTIVE: Ht 5' 1.5 (1.562 m) Wt 137 lb (62.143 kg) BMI 25.47 kg/m2 LMP 02/22/2010 GENERAL APPEARANCE: healthy, alert and no distress EYES: Eyes grossly normal to inspection, PERRL and conjunctivae and sclerae normal HENT: ear canals and TM's normal, nose and mouth without ulcers or lesions, oropharynx clear and oral mucous membranes moist NECK: no adenopathy, no asymmetry, masses, or scars and thyroid normal to palpation RESP: lungs clear to auscultation - no rales, rhonchi or wheezes BREAST: normal without masses, tenderness or nipple discharge and no palpable axillary masses or adenopathy CV: regular rates and rhythm, normal S1 S2, no S3 or S4, no murmur, click or rub, no peripheral edema and peripheral pulses strong ABDOMEN: soft, nontender, no hepatosplenomegaly, no masses and bowel sounds normal (female): normal female external genitalia, vaginal mucosa pink, moist, well rugated and normal cervix, adnexae, and uterus without masses. Normal vaginal discharge MS: no musculoskeletal defects are noted and gait is age appropriate without ataxia SKIN: no suspicious lesions or rashes NEURO: Normal strength and tone, sensory exam grossly normal, mentation intact and speech normal PSYCH: mentation appears normal and affect normal/bright ASSESSMENT/PLAN: 1. Routine general medical examination at a health care facility - LIPID REFLEX TO DIRECT LDL PANEL - PAP IMAGED THIN LAYER SCREEN 2. Screening for malignant neoplasm of cervix -PAP 3. CARDIOVASCULAR SCREENING; LDL GOAL LESS THAN 130 - simvastatin (ZOCOR) 20 MG tablet; Take 1 tablet (20 mg) by mouth At Bedtime Dispense: 30 tablet; Refill: 5 4. Hypertension goal BP (blood pressure) < 140/90 - atenolol-chlorthalidone (TENORETIC) 50-25 MG per tablet; Take 1 tablet by mouth daily Dispense: 30tablet; Refill: 5 5. Menopausal syndrome (hot flashes) - gabapentin (NEURONTIN) 100 MG capsule; Take 1-2 caps daily Dispense: 180 capsule; Refill: 1 - venlafaxine (EFFEXOR-XR) 37.5 MG 24 hr capsule; Take 1 capsule (37.5 mg) by mouth daily For hot flashes Dispense: 30 capsule; Refill: 0 6. Bilateral impacted cerumen - REMOVE IMPACTED CERUMEN 7. Dysfunction of eustachian tube, bilateral - fluticasone (FLONASE) 50 MCG/ACT nasal spray; [place] 1-2 sprays into both nostrils daily Dispense: 16 g; Refill: 1 regular exercise healthy diet/nutrition colon cancer screening reports that she has quit smoking. She has never used smokeless tobacco. Estimated body mass index is 25.47 kg/(m^2) as calculated from the following: Height as of this encounter: 5' 1.5 (1.562 m). Weight as of this encounter: 137 lb (62.143 kg). Counseling Resources: ATP IV Guidelines Pooled Cohorts Equation Calculator Breast Cancer Risk Calculator FRAX Risk Assessment ICSI Preventive Guidelines Dietary Guidelines for Americans, 2010 [employer] Kleber Ng PA-C [facility] documented in this encounter Nursing Notes Gabrielle Garcia MA - 09/24/2014 9:25 AM CDT Chief Complaint Patient presents with ??? Physical w/pap ??? Blood Draw patient IS fasting. Initial BP 110/74 mmHg Pulse 72 Temp(Src) 98.3 ??F (36.8 ??C) (Oral) Resp 20 Ht 5' 1.5 (1.562 m) Wt 137 lb (62.143 kg) BMI 25.47 kg/m2 LMP 02/22/2010 ? No Estimated body mass index is 25.47 kg/(m^2) as calculated from the following: Height as of this encounter: 5' 1.5 (1.562 m). Weight as of this encounter: 137 lb (62.143 kg). BP completed using cuff size: regular Gabrielle Garcia MA documented in this encounter Plan of Treatment Not on filedocumented as of this encounter Procedures Procedure Name Priority Date/Time Associated Diagnosis Comme nts LIPID REFLEX TO Routine 09/24/2014 10:19 AM Routine general Re sults for this DIRECT LDL PANEL CDT medical examination proc edure are in at a health care the results facility section. HC REMOVE IMPACTED Routine 09/24/2014 9:54 AM Bilateral impact ed CERUMEN CDT cerumen PAP IMAGED THIN Routine 09/24/2014 12:00 AM Routine general Re sults for this LAYER SCREEN CDT medical examination procedur e are in at a health care the results facility section. documented in this encounter Results LIPID REFLEX TO DIRECT LDL PANEL (09/24/2014 10:19 AM CDT) P athologist Signature Cholesterol 168 <200 mg/dL [facility] Comment: LDL Cholesterol is the primary guide to therapy. The NCEP recommends further evaluation of: patients with cholesterol greater than 200 mg/dL if additional risk facto rs are present, cholesterol greater than 240 mg/dL, triglycerides greater than 1 50 mg/dL, or HDL less than 40 mg/dL. Triglycerides 101 0 - 150 mg/dL [facility] Comment: Fasting specimen HDL Cholesterol 62 >50 mg/dL [facility] LDL Cholesterol Calculated 86 0 - 129 mg/dL [facility] Comment: LDL Cholesterol is the primary guide to therapy: LDL-cholesterol goal in high risk patients is <100 mg/dL and in very high risk patients is <70 mg/dL. VLDL-Cholesterol 20 0 - 30 mg/dL [facility] Cholesterol/HDL Ratio 2.7 0.0 - 5.0 [facility] Specimen Anatomical Collection Method Collection Time Receive d Time (Source) Location / / Volume Laterality Blood specimen 09/24/2014 10:19 5 (specimen) AM CDT 10:20 AM CDT Kleber Ng PA-C LAB - BLOOD ORDERABLES Performing Organization Address City/State/ZIP Code Phon e Number [facility] [address] [place] [address] PAP IMAGED THIN LAYER SCREEN (09/24/2014 12:00 AM CDT) Component Value Ref Test Analysis Performed At Patholo gist Range Method Time Signature PAP NIL COPATH Copath Report COPATH Patient Name: MICAH SCOTT MR#: [id number] Specimen #: [id number] Collected: 09/24/2014 Received: 09/25/2014 Reported: 09/26/2014 13:16 Ordering Phy(s): KLEBER NG SPECIMEN/STAIN PROCESS: Pap imaged thin layer prep screening (Surepath, FocalPoint w ith guided screening) ? Pap-Cyto x 1, Reflex HPV if ASCUS/LSIL x 1 SOURCE: Cervical, endocervical ---- Pap imaged thin layer prep screening (Surepath, FocalPoint with guided screening) SPECIMEN ADEQUACY: Satisfactory for evaluation. -Transformation zone component present. CYTOLOGIC INTERPRETATION: Negative for Intraepithelial Lesion or Malignancy Electronically signed out by: CHRISTINA Paris ??(ASCP) Processed and screened at [facility] CLINICAL HISTORY: LMP: 02/22/2010 Post Menopausal, Papanicolaou Test Limitations: ??Cervical cytology is a scre ening test with limited sensitivity; regular screening is critical for cancer prevention; Pap tests are primarily effective for the diagnosis/prevention of squamous cell carcinoma, not adenoca rcinomas or other cancers. TESTING LAB LOCATION: [address] ??[address] COLLECTION SITE: Client: ??[facility] Location: [facility] (R) Specimen (Source) Anatomical Collection Method Collection Time Re ceived Time Location / / Volume Laterality Cytologic 09/24/2014 09/25/2014 10:4 0 material AM CDT (specimen) Kleber Ng PA-C LAB - OPTIME CLINICAL SPECIM EN Performing Organization Address City/State/ZIP Code Phon e Number [place] documented in this encounter Visit Diagnoses Diagnosis Routine general medical examination at a health care facility - Primary Screening for malignant neoplasm of cerv ix Screening for malignant neoplasm of the cervix CARDIOVASCULAR SCREENING; LDL GOAL LESS THAN 130 Hypertension goal BP (blood pressure) < 140/90 Unspecified essential hypertension Menopausal syndrome (hot flashes) Symptomatic menopausal or female climact ash[place] states Bilateral impacted cerumen Impacted cerumen Dysfunction of Eustachian tube, bilatera l documented in this encounter Care Teams Water Operator Relationship Specialty Start Date End Date Kleber Ng, PCP - General Physician Business Team Leader - 05/15/14 PA-C Medical documented as of this encounter
--- OUTSIDE RECORDS SUMMARY | 2022-01-05 11:38 | XMS_ITS | Encounter Summary ---
:1960 Author Organization [facility] Address [address] [place] [address] Care Team Providers Name Role Phone Kleber Ledesma PA-C Primary Care Provider [phone] Reason for Visit Auth/Cert - Closed Specialty Diagnoses / Procedures Referred By Contact Refer red To Contact Gastroenterology Diagnoses screening Rh Endoscopy Procedures COLONOSCOPY [address] [place] [address] Phone: Fax: Referral ID Status Reason Start Date Expiration Date Visits Requ ested Visits Authorized [id number] Closed 1 1 Encounter Details Date Type Department Care Team Description 12/31/2014 Surgery [facility] Adrianne Mak MD Colonoscopy [facility] GASTROENTEROLOGY [address] [facility] [address] [place] [address] [place] [address] [phone] (Wo rk) Surgery Details Date/Time Status Location OR Service Patient Class Case Case Trauma Class Type Case? 12/31/14 Posted GI GI C Gastroenterology Outpatient 10:00 AM Panel 1 Procedure LRB Anes Op Region Wound Class Commen ts Colonoscopy N/A Conscious Sedation Rectum II-Clean Contami nated Colonoscopy Surgeon Surgeon Role Service Panel Adrianne Urbano MD Primary Gastroenterology 1 Special Needs Jose M Rees documented in this encounter Social History Tobacco Use Types Packs/Day Years [...] - Inhaled Oxygen Concentration - - Weight 61.2 kg (135 lb) 12/31/2014 10:00 AM NANOSYSTEMS ENGINEER Height 157.5 cm (5' 2) 12/31/2014 10:00 AM NANOSYSTEMS ENGINEER Body Mass Index 24.69 12/31/2014 10:00 AM NANOSYSTEMS ENGINEER documented in this encounter Medications at Time of Discharge Medication Sig Dispensed Refills Start Date End Date aspirin 81 MG tablet Take 81 mg by 0 0 09/22/2019 mouth daily atenolol-chlorthalidone Take 1 tablet by 30 tablet 5 201408/16/2015 (TENORETIC) 50-25 MG per mouth daily tabletIndications: Hypertension goal BP (blood pressure) < 140/90 CALCIUM CARBONATE PO Take 2,400 mg by 0 09/22/2019 mouth daily Cholecalciferol (VITAMIN Take 2,000 Units 0 09/22/2019 D3 PO) by mouth daily Coenzyme Q10 (CO Q 10 PO) Take 100 mg by 0 09/22/2019 mouth 2 times daily FOLIC ACID PO Take 1 mg by 0 0 mouth daily gabapentin (NEURONTIN) 100 Take 1-2 caps 180 capsule 1 09/2408/26/2015 MG capsuleIndications: daily Menopausal syndrome (hot flashes) Ginkgo Biloba 40 MG TABS Take 120 mg by 0 09/22/2019 mouth daily Multiple Vitamins-Minerals Take 1 tablet by 0 09/22/2019 (OCUVITE PO) mouth daily [place]-3 Fatty Acids Take 2.4 g by 0 (OMEGA-3 FISH OIL PO) mouth daily simvastatin (ZOCOR) 20 MG Take 1 tablet (20 30 tablet 5 04/16/2015 tabletIndications: mg) by mouth At CARDIOVASCULAR SCREENING; Bedtime LDL GOAL LESS THAN 130 documented as of this encounter Procedure Notes Adrianne Urbano MD - 12/31/2014 10:56 AM CST PRE-PROCEDURE H&P CHIEF COMPLAINT / REASON FOR PROCEDURE: screening PERTINENT HISTORY : Past Medical History Diagnosis Date ??? Hypertension ??? High cholesterol ??? Chest discomfort ??? Moderate persistent asthma 2005 cold air trigger Past Surgical History Procedure Laterality Date ??? C nonspecific procedure laparoscopy by CLIENT TECHNOLOGIES ANALYST ??? Cholecystectomy ??? Colonoscopy 12/31/2014 Dr. Urbano [facility] ??? 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 No Known Drug Allergies CURRENT MEDICATIONS: No current outpatient prescriptions on file. PRE-SEDATION ASSESSMENT: Lung Exam: normal Heart Exam: normal Airway Exam: normal Previous reaction to anesthesia/sedation: No Sedation plan based on assessment: Moderate (conscious) sedation ASA Classification: 2 - Mild systemic disease IMPRESSION: screening PLAN: colonoscopy Adrianne Urbano MD [facility] Office: [phone] SYSTEMS ENGINEER documented in this encounter Miscellaneous Notes Treatment Plan - Xin Mosher RN - 12/12/2014 2:34 PM CST Pt called to let us know that she has nausea and vomiting with Demerol. Was reassured that she wouldreceive Zofran if that is an issue SYSTEMS ENGINEER documented in this encounter Plan of Treatment Not on filedocumented as of this encounter Procedures Procedure Name Priority Date/Time Associated Diagnosis Comme nts COLONOSCOPY 12/31/2014 10:49 AM NANOSYSTEMS ENGINEER screening Special Needs Jose M Rees COLONOSCOPY Routine 12/31/2014 10:47 AM NANOSYSTEMS ENGINEER Resu lts for this procedure are in the results section . documented in this encounter Results COLONOSCOPY (12/31/2014 10:47 AM NANOSYSTEMS ENGINEER) [facility] Method Time Signature COLONOSCOPY [facility] RAD IOLOGY RESULTS Patient Name: Amie Scott ? Procedure Date: 12/31/2014 10:47 AM ? Accou nt Number: [id number] Date of : 1960 ? Admit Type: Out patient Age: 54 ? Gender: Female Attending MD: Adrianne Urbano MD ? Instrument Name: 135 Procedure: ?Colonoscopy Indications: ?Screening for colorec harjit malignant neoplasm Providers: ?Adrianne Urbano MD, Radha Trinh RN (Nurse) Referring MD: ? Jose M Cassidy MD Medicines: ?Midazo monsivais 1 mg IV, Fentanyl 50 micrograms IV Complications: ?No immediate complications. Procedure: ?Pre-Anesthesia Assessment: ?- Prior to the procedure, a History and Physical ?was performed, and patient medications and ?allergies were reviewed. The patient is competent. ?The risks and benefits of the procedure and the ?sedation options and risks were discussed with the ?patient. All questions were answered and informed ?consent was obtained. Patient identification and ?proposed procedure were verified by the physician ?and the nurse in the procedure room. Mental Status ?E xamination: alert and oriented. Airway ?Examination: normal oropharyngeal airway and neck ?mobility. Respiratory Examination: clear to ?auscultation. CV Examination: normal. Prophylactic ?Antibiotics: The patient does not require ?prophylactic antibiotics. Prior Anticoagulants: The ?patient has taken no previous anticoagulant or ?antiplatelet agents. ASA Grade Assessment: II - A ?patient with mild systemic disease. After reviewing ?the risks and benefits, the patient was deemed in ?satisfactory condition to undergo the procedure. ?The anesthesia plan was to use moderate sedation / ?analgesia (conscious sedation). Immediately prior ?to administration of medications, the patient was ?re-assessed for adequacy to receive sedatives. The ?heart rate, respiratory rate, oxygen saturations, ?blood pressure, adequacy of pulmonary ventilation, ?and response to care were monitored throughout the ?procedure. The physical status of the patient was ?re-assessed after the procedure. ?After obtaining informed consent, the colonoscope ?was passed under direct vision. Throughout the ?procedure, the patient's blood pressure, pulse, and ?oxygen saturations were monitored continuously. The ?[id number] was introduced through the anus and ?advanced to the cecum, identified by appendiceal ?orifice and ileocecal valve. The colonoscopy was ?performed without difficulty. The patient tolerated ?the procedure well. The quality of the bowel ?preparation was good. ? Findings: ? Multiple small and large-mouthed divertic tiffanie were found in the sigmoid ? colon and in the descending colon. ? External and internal hemorrhoids were found during retroflexion and ? were small. ? The exam was otherwise without abnormality. ? Impression: ? - Diverticulosis in the sigmoid colon and in the ?descending colon. ?- External and inte rnal hemorrhoids. ?- The examination was otherwise normal. Recommendation: ? - Repeat colonosc opy in 10 years for screening ?purposes. ? B Sundeep Brown Adrianne Urbano MD 12/31/2014 11:17 AM I was physically present for the entire viewing portion of t he exam. Number of Addenda: 0 Note Initiated On: 12/31/2014 10:47 AM MRN: ?[id number] Procedure Date: ? 12/31/2014 10:47:36 AM Scope Withdrawal Time: 0 hours 8 minutes 52 seconds Total Procedure Duration: 0 hours 12 minutes 56 seconds Estimated Blood Loss: ? Scope In: 11:00:01 AM Scope Out: 11:12:57 AM Specimen (Source) Anatomical Collection Method Collection Time Re ceived Time Location / / Volume Laterality 12/31/2014 10:47 AM NANOSYSTEMS ENGINEER Kleber Ledesma PA-C PROCEDURES Performing Organization Address City/State/ZIP Code Phon e Number RADIOLOGY RESULTS documented in this encounter Visit Diagnoses Not on filedocumented in this encounter Administered Medications Inactive Administered Medications - up to 3 most recent administrations Medication Order MAR Action Action Date Dose Rate Site fentaNYL (SUBLIMAZE) injection Given 12/31/2014 10:56 AM NANOSYSTEMS ENGINEER 50 mcg PRN, Starting on Wed12/31/14 at 1056, Intra-procedure midazolam (VERSED) injection Given 12/31/2014 10:56 AM NANOSYSTEMS ENGINEER 1 mg PRN, Starting on Wed12/31/14 at 1056, Intra-procedure sodium chloride (PF) 0.9% PF flush 3 mL Given 12/31/2014 10:59 AM NANOSYSTEMS ENGINEER 3 mLs 3 mL, Intravenous, EVERY 1 HOUR PRN, line flush, post meds or blood draw, Starting on Wed12/31/14 at 1015, for peripheral IV flush post IV meds, Pre-procedure documented in this encounter Active and Recently Administered Medications Times are shown in NANOSYSTEMS ENGINEER. PRN Medication Order 12/29/2014 12/30/2014 12/31/2014 fentaNYL (SUBLIMAZE) injection (CANCELED) 1056 (Given - Provider: Radha Trinh RN - Comment: estiven) PRN, Starting Wed12/31/14 at 1056, Intra-procedure midazolam (VERSED) injection (CANCELED) 1056 (Given - Provider: Radha Trinh RN - Comment: vorb) PRN, Starting 12/31/14 at 1056, Intra-procedure sodium chloride (PF) 0.9% PF flush 3 mL (CANCELED) 1059 (Given - Provider: Radha Trinh, DEWAYNE) 3 mL, Intravenous, EVERY 1 HOUR PRN, tod e flush, post meds or blood draw, Starting Wed12/31/14 at 1015, for peripheral IV flush post IV meds, Pre-procedure documented in this encounter Care Teams Belt Polisher Relationship Specialty Start Date End Date Kleber Ledesma, PCP - General Physician [employer] - 05/15/14 PA-C Medical documented as of this encounter
--- OUTSIDE RECORDS SUMMARY | 2022-01-05 11:38 | XMS_ITS | Encounter Summary ---
:1960 Author Organization [facility] Address [address] [place] [address]. [place] [address] Care Team Providers Name Role Phone Kleber Ledesma PA-C Primary Care Provider [phone] Reason for Visit Reason Comments Hypertension Blood Draw patient is NOT fasting? Encounter Details Date Type Department Care Team Description 08/26/2015 Office Visit [facility] Kleber Ledesma ianaren hypertension with goal blood pressure less than 140/90 (Primary Dx); Clinic Thomas Valderrama PA-C Mixed hyperlipidemia; [place] [phone] [facility] Menopausal syndrome (hot flashes) [facility], [address] [place] [phone] Social History Tobacco Use Types Packs/Day [...] Reading Time Taken Comments Blood Pressure 110/70 08/26/2015 1:05 PM CDT Pulse 52 08/26/2015 1:05 PM CDT Temperature 36.6 ??C (97.8 ??F) 08/26/2015 1:05 PM CDT Respiratory Rate 16 08/26/2015 1:05 PM CDT Oxygen Saturation - - Inhaled Oxygen Concentration - - Weight 63.5 kg (140 lb) 08/26/2015 1:05 PM CDT Height - - Body Mass Index 25.61 02/19/2015 5:37 PM FLOOR PLAN ADJUSTER documented in this encounter Progress Notes Kleber Ledesma PA-C - 08/26/2015 12:02 PM CDT SUBJECTIVE: Amie Scott is a 55 year old female who presents to clinic today for the following health issues: Hypertension Follow-up ?? Outpatient blood pressures are not being checked. ?? Low Salt Diet: low salt ?? Amount of exercise or physical activity: None ?? Problems taking medications regularly: No ?? Medication side effects: none ?? Diet: regular (no restrictions) Here for med check and labs. Not checking BP's outpatient. Not fasting today. Has been on atenolol for a while and zocor also. PROBLEMS TO ADD ON... Having a very difficult time with menopausal symptoms. Effexor did not work. Was very sensitive to it, made her feel much worse, lots of side effects. Only took it 2-3 times. Not sleeping at all. Having a lot of hot flashes, mood not doing well. Feeling very irritable. Problem list and histories reviewed & adjusted, as indicated. Additional history: as documented BP Readings from Last 3 Encounters: 08/26/15 110/70 02/19/15 108/68 01/10/15 110/70 Wt Readings from Last 3 Encounters: 08/26/15 140 lb (63.504 kg) 02/19/15 133 lb (60.328 kg) 01/10/15 131 lb (59.421 kg) Labs reviewed in [facility] Problem list, Medication list, Allergies, and Medical/Social/Surgical histories reviewed in [facility] andupdated as appropriate. ROS: C: NEGATIVE for fever, chills, change in weight E/M: NEGATIVE for ear, mouth and throat problems R: NEGATIVE for significant cough or SOB CV: NEGATIVE for chest pain, palpitations or peripheral edema OBJECTIVE: BP 110/70 mmHg Pulse 52 Temp(Src) 97.8 ??F (36.6 ??C) (Oral) Resp 16 Wt 140 lb (63.504 kg) LMP 02/22/2010 Body mass index is 25.6 kg/(m^2). GENERAL: healthy, alert and no distress RESP: lungs clear to auscultation - no rales, rhonchi or wheezes CV: regular rate and rhythm, normal S1 S2, no S3 or S4, no murmur, click or rub, no peripheral edemaand peripheral pulses strong PSYCH: mentation appears normal and affect flat Diagnostic Test Results: none ASSESSMENT/PLAN: 1. Essential hypertension with goal blood pressure less than 140/90 Refilled. - atenolol-chlorthalidone (TENORETIC) 50-25 MG per tablet; Take 1 tablet by mouth daily Dispense: 90tablet; Refill: 1 2. Mixed hyperlipidemia Refilled. - simvastatin (ZOCOR) 20 MG tablet; Take 1 tablet (20 mg) by mouth At Bedtime Dispense: 90 tablet; Refill: 1 3. Menopausal syndrome (hot flashes) Discussed mechanism of action of medication, proper dosing, potential side effects and appropriate follow up. Try prozac first and consider adding clonidine if needed for sleep and/or additional control of symptoms/hot flashes. She will follow up in 4-6 weeks, sooner if needed. - FLUoxetine (PROZAC) 10 MG capsule; Take 1 capsule (10 mg) by mouth daily Dispense: 30 capsule; Refill: 1 We can do labs, fasting, at next visit. Kleber Ledesma PA-C [facility] documented in this encounter Nursing Gabrielle Callahan MA - 08/26/2015 1:07 PM CDT Chief Complaint Patient presents with ??? Hypertension ??? Blood Draw patient is NOT fasting? Initial BP 110/70 mmHg Pulse 52 Temp(Src) 97.8 ??F (36.6 ??C) (Oral) Resp 16 Wt 140 lb (63.504 kg) LMP 02/22/2010 Estimated body mass index is 25.6 kg/(m^2) as calculated from the following: Height as of 02/19/15: 5' 2 (1.575 m). Weight as of this encounter: 140 lb (63.504 kg). BP completed using cuff size: regular Gabrielle Garica MA documented in this encounter Plan of Treatment Not on filedocumented as of this encounter Visit Diagnoses Diagnosis Essential hypertension with goal blood p ressure less than 140/90 - Primary Mixed hyperlipidemia Menopausal syndrome (hot flashes) Symptomatic menopausal or female climact ashley states documented in this encounter Care Teams Mix Maker Relationship Specialty Start Date End Date Kleber Ledesma, PCP - General Physician Shovel Engineer - 05/15/14 PA-C Medical documented as of this encounter
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
--- OUTSIDE RECORDS SUMMARY | 2022-01-05 11:38 | XMS_ITS | Encounter Summary ---
:1960 Author Organization [facility] Address [address] [place] [address] Care Team Providers Name Role Phone Kleber Ledesma PA-C Primary Care Provider [phone] Encounter Details Date Type Department Care Team Description 07/23/2014 Orders Only [facility] Tic k bite (Primary Dx) [facility], [address] [place] [address] Social History Tobacco Use [...] Name Priority Date/Time Associated Diagnosis Comme nts LYME DISEASE TOTAL Routine 07/23/2014 11:42 AM Tick bite Re sults for this ABS BLD WITH REFLEX CDT procedur e are in TO CONFIRM CLIA the results section. documented in this encounter Results Lyme Disease Sarah with reflex to WB Serum (07/23/2014 11:42 AM CDT) P athologist Signature Lyme Disease 0.49 0.00 - [facility] Antibodies 0.89 [facility] Serum [facility] Comment: Negative, Absence of detectable Borrelia burdorferi antibodies. A negative result does not exclude the possibility of Borrelia burgdorferi infection. If early Lyme disease is suspected, a seco nd sample should be collected and tested 2 to 4 weeks later. Specimen Anatomical Collection Method Collection Time Receive d Time (Source) Location / / Volume Laterality Blood specimen 07/23/2014 11:42 5 (specimen) AM CDT 11:47 AM CDT Kleber Ledesma PA-C LAB - BLOOD ORDERABLES Performing Organization Address City/State/ZIP Code Phon e Number [facility] [address] [place], [place] [id number] [place] [address] documented in this encounter Visit Diagnoses Diagnosis Tick bite - Primary Other, multiple, and unspecified sites, insect bite, nonvenomous, without mention of infection documented in this encounter Care Teams Heading Repairer Relationship Specialty Start Date End Date Kleber Ledesma, PCP - General Physician Pm Head Cook - 05/15/14 RACHNA Medical documented as of this encounter
--- OUTSIDE RECORDS SUMMARY | 2022-01-05 11:38 | XMS_ITS | Encounter Summary ---
:1960 Author Organization [facility] Address [address] [place] [address] Care Team Providers Name Role Phone Kleber Ledesma PA-C Primary Care Provider Reason for Visit Reason Onset Date Comments Previsit 07/09/2014 OV w/ Dr. Mercer 07/10 Encounter Details Date Type Department Care Team Description 07/09/2014 PRE VISIT [facility] Jose Ramon Mercer MD Previsit (OV w/ [facility] AND [place] 07/10/14) [address] [facility] VASCULAR [facility] [address] [place] [address] [address] [phone] [place], [place] [address] Social History Tobacco Use Types Packs/Day Years [...] on filedocumented in this encounter Care Teams Cardiology Clinical Consultant Relationship Specialty Start Date End Date Kleber Ledesma, PCP - General Physician Hotel Dining Room Cashier - 05/15/14 RACHNA Medical documented as of this encounter
--- OUTSIDE RECORDS SUMMARY | 2022-01-05 11:38 | XMS_ITS | Encounter Summary ---
:1960 Author Organization [facility] Address [address] [place] [address]. [place] [address] Care Team Providers Name Role Phone Kleber Ledesma PA-C Primary Care Provider [phone] Reason for Visit Reason Onset Date Comments Colonoscopy 10/01/2014 Encounter Details Date Type Department Care Team Description 10/01/2014 PRE VISIT [facility] Kleber Ledesma, Colonoscopy [place] RACHNA [address] [place] [address] [address] [place] [address] [place] [address] [phone] Social History Tobacco Use Types Packs/Day Years [...] Telephone Encounter - Deisy Elizabeth RN - 10/02/2014 2:13 PM CDT Patient is scheduled 11/19/2014 for colonoscopy. Deisy Elizabeth RN Telephone Encounter - Yesi Álvarez MD - 10/01/2014 2:41 PM CDT Patient is due for her colon cancer screening, is she willing to have the fit test done? Or order colonoscopy Thank you documented in this encounter Plan of Treatment Not on filedocumented as of this encounter Visit Diagnoses Not on filedocumented in this encounter Care Teams Traveling Passenger Agent Relationship Specialty Start Date End Date Kleber Ledesma, PCP - General Physician Parts Remover - 05/15/14 PA-C Medical documented as of this encounter
--- OUTSIDE RECORDS SUMMARY | 2022-01-05 11:38 | XMS_ITS | Encounter Summary ---
:1960 Author Organization [facility] Address [address] [place] [address]. [place] [address] Care Team Providers Name Role Phone Kleber Ledesma PA-C Primary Care Provider [phone] Reason for Visit (Routine) - Closed Specialty Diagnoses / Procedures Referred By Contact Refer red To Contact Radiology / Radiology. Diagnoses Epic, ni na pmd pt had them done at [facility]. - pt will call and request. Breast Center Procedures MA SCREENING DIGITAL BILATERAL [address] [facility], [address] [place] [address] Phone: Fax: Referral ID Status Reason Start Date Expiration Date Visits Requ ested Visits Authorized [id number] Closed 08/21/2014 08/21/2015 1 1 Encounter Details Date Type Department Care Team Description 09/10/2014 Hospital Encounter [facility] Jose M Rees for screening [facility] [address] [facility], [address] [place], [place] [id number] Social History Tobacco Use Types Packs/Day [...] Sig Dispensed Refills Start Date End Date amoxicillin (AMOXIL) 500 Take 1 capsule 20 capsule 0 015 09/24/2014 MG capsuleIndications: (500 mg) by mouth Other acute nonsuppurative 2 times daily otitis media of right ear aspirin 81 MG tablet Take 81 mg [...] by 0 09/22/2019 mouth 2 times daily doxycycline (VIBRAMYCIN) Take 1 capsule 28 capsule 0 015 09/24/2014 100 MG capsuleIndications: (100 mg) by mouth Erythema migrans (Lyme 2 times daily disease) GABAPENTIN PO Take 100 mg by 0 015 mouth At Bedtime Ginkgo Biloba 40 MG TABS Take 120 mg by 0 09/22/2019 mouth daily HYDROcodone-acetaminophen Take 1-2 tablets 15 tablet 0 08/0909/24/2014 (NORCO) 5-325 MG per by mouth every 4 tablet hours as needed for moderate to severe pain Multiple Vitamins-Minerals Take 1 tablet by 0 09/22/2019 (OCUVITE PO) mouth daily [place]-3 Fatty Acids Take 2.4 g by 0 (OMEGA-3 FISH OIL PO) mouth daily simvastatin (ZOCOR) 20 MG Take 1 tablet (20 30 tablet 5 09/24/2014 tabletIndications: mg) by mouth At CARDIOVASCULAR SCREENING; Bedtime LDL GOAL LESS THAN 130 tobramycin-dexamethasone 1 gtt to eyes x 3 1 Bottle 0 08/0909/24/2014 (TOBRADEX) ophthalmic doses , then bid suspensionIndications: tomorrow for 6 Uveitis, Eye problem more days documented as of this encounter Plan of Treatment Not on filedocumented as of this encounter Procedures Procedure Name Priority Date/Time Associated Diagnosis Comme nts MI SCREENING Routine 09/10/2014 11:04 AM Visit for screening R esults for this DIGITAL BILATERAL CDT mammogram procedure are in the results section. documented in this encounter Results MA SCREENING DIGITAL BILAT - Future (s+30) (09/10/2014 11:04 AM CDT) Anatomical Region Laterality Modality Breast Bilateral Mammography Specimen (Source) Anatomical Location Collection Method / Collectio n Time Received Time / Laterality Volume Impressions 09/10/2014 11:06 AM CDT IMPRESSION: BI-RADS CATEGORY: 1 - ??NEGATIVE. RECOMMENDED FOLLOW-UP: Annual Mammograph y. EDWIN LUGO MD Narrative 09/10/2014 11:06 AM CDT MA SCREENING DIGITAL BILATERAL 09/10/2014 11:04 AM HISTORY: ??Screening. ??No new breast co mplaints. COMPARISON: ??12/07/2011, 05/19/2007 TECHNIQUE: ??Digital mammography with CA D is performed. BREAST DENSITY: Heterogeneously dense. COMMENTS: No findings of suspicion for m alignancy. Procedure Note Edwin Lugo MD - 09/10/2014For matting of this note might be different from the original. MA SCREENING DIGITAL BILATERAL 09/10/2014 11:04 AM HISTORY: Screening. No new breast compla ints. COMPARISON: 12/07/2011, 05/19/2007 TECHNIQUE: Digital mammography with CAD is performed. BREAST DENSITY: Heterogeneously dense. COMMENTS: No findings of suspicion for m alignancy. IMPRESSION IMPRESSION: BI-RADS CATEGORY: 1 - NEGATI VE. RECOMMENDED FOLLOW-UP: Annual Mammograph y. EDWIN LUGO MD JoseM Rees MD IMG MAMMOGRAPHY ORDERABLES documented in this encounter Visit Diagnoses Diagnosis Visit for screening mammogram Other screening mammogram documented in this encounter Care Teams Inter Fold Roll Cutter Relationship Specialty Start Date End Date Kleber Ledesma, PCP - General Physician Entertainment Usher - 05/15/14 PA-C Medical documented as of this encounter
--- OUTSIDE RECORDS SUMMARY | 2022-01-05 11:38 | XMS_ITS | Encounter Summary ---
:1960 Author Organization [facility] Address [address] [place] [address] Care Team Providers Name Role Phone Kleber Ledesma PA-C Primary Care Provider [phone] Reason for Visit Auth/Cert - Closed Specialty Diagnoses / Procedures Referred By Contact Refer red To Contact Gastroenterology Diagnoses screening Rh Endoscopy Procedures COLONOSCOPY [address] [place] [address] Phone: Fax: Referral ID Status Reason Start Date Expiration Date Visits Requ ested Visits Authorized [id number] Closed 1 1 Encounter Details Date Type Department Care Team Description 12/31/[address] [facility] Linneus MD Navya [address] [place] [facility] [place], [place] [address] [address] [address] [phone] [place] [address] (Wo rk) Social History Tobacco Use Types [...] Sign Reading Time Taken Comments Blood Pressure 113/85 12/31/2014 12:00 PM MARKETING DEVELOPMENT SPECIALIST Pulse - - Temperature - - Respiratory Rate 15 12/31/2014 12:00 PM MARKETING DEVELOPMENT SPECIALIST Oxygen Saturation 97% 12/31/2014 12:00 PM MARKETING DEVELOPMENT SPECIALIST Inhaled Oxygen Concentration - - Weight 61.2 kg (135 lb) 12/31/2014 10:00 AM MARKETING DEVELOPMENT SPECIALIST Height 157.5 cm (5' 2) 12/31/2014 10:00 AM MARKETING DEVELOPMENT SPECIALIST Body Mass Index 24.69 12/31/2014 10:00 AM MARKETING DEVELOPMENT SPECIALIST documented in this encounter Medications at Time [...] by 0 09/22/2019 (OCUVITE PO) mouth daily [place]-3 Fatty Acids Take 2.4 g by 0 [...] Date ??? C nonspecific procedure laparoscopy by STITCH BONDER MACHINE OPERATOR HELPER ??? Cholecystectomy ??? Colonoscopy 12/31/2014 Dr. Urbano FR ??? Tool Coordinator surgery age 21 yrs.laporoscopy Bleeding tendencies: [...] IMPRESSION: screening PLAN: colonoscopy Adrianne Urbano MD [facility] Office: [phone] ETING DEVELOPMENT SPECIALIST documented in this encounter Miscellaneous Notes Treatment Plan - Xin Mosher, RN - 12/12/2014 2:34 PM CST Pt called to let us know that she has nausea and vomiting with Demerol. Was reassured that she wouldreceive Zofran if that is an issue ETING DEVELOPMENT SPECIALIST documented in this encounter Plan of Treatment Not on filedocumented as of this encounter Procedures Procedure Name Priority Date/Time Associated Diagnosis Comme nts COLONOSCOPY 12/31/2014 10:49 AM MARKETING DEVELOPMENT SPECIALIST screening Special Needs Jose M Rees COLONOSCOPY Routine 12/31/2014 10:47 AM MARKETING DEVELOPMENT SPECIALIST Resu lts for this procedure are in the results section . documented in this encounter Results COLONOSCOPY (12/31/2014 10:47 AM MARKETING DEVELOPMENT SPECIALIST) [facility] Method Time Signature COLONOSCOPY [facility] RAD IOLOGY RESULTS Patient Name: Amie Scott ? Procedure Date: 12/31/2014 10:47 AM ? Accou nt Number: [id number] Date of : 1960 ? Admit Type: [...] and ?oxygen saturations were monitored continuously. The ?[id number] was introduced through the anus and ?advanced [...] Note Initiated On: 12/31/2014 10:47 AM MRN: ?[id number] Procedure Date: ? 12/31/2014 10:47:36 AM Scope Withdrawal Time: 0 hours 8 minutes 52 seconds Total Procedure Duration: 0 hours 12 minutes 56 seconds Estimated Blood Loss: ? Scope In: 11:00:01 AM Scope Out: 11:12:57 AM Specimen (Source) Anatomical Collection Method Collection Time Re ceived Time Location / / Volume Laterality 12/31/2014 10:47 AM MARKETING DEVELOPMENT SPECIALIST Kleber Ledesma PA-C PROCEDURES Performing Organization Address City/State/ZIP Code Phon e Number RADIOLOGY RESULTS documented in this encounter Visit Diagnoses Not on filedocumented in this encounter Active and Recently Administered Medications Times are shown in MARKETING DEVELOPMENT SPECIALIST. PRN Medication Order 12/29/2014 12/30/2014 12/31/2014 fentaNYL (SUBLIMAZE) injection (CANCELED) 1056 (Given - Provider: Radha Trinh, RN - Comment: estiven) PRN, Starting 12/31/14 at 1056, Intra-procedure midazolam (VERSED) injection (CANCELED) 1056 (Given - Provider: Radha Trinh RN - Comment: estiven) PRN, Starting Wed12/31/14 at 1056, Intra-procedure sodium chloride (PF) 0.9% PF flush 3 mL (CANCELED) 1059 (Given - Provider: Radha Trinh, RN) 3 mL, Intravenous, EVERY 1 HOUR PRN, tod e flush, post meds or blood draw, Starting Wed12/31/14 at 1015, for peripheral IV flush post IV meds, Pre-procedure documented in this encounter Care Teams Floor Nurse Relationship Specialty Start Date End Date Kleber Ledesma, PCP - General Physician Liquefaction And Regasification Helper - 05/15/14 [facility] Medical documented as of this encounter
--- OUTSIDE RECORDS SUMMARY | 2022-01-05 11:38 | XMS_ITS | Encounter Summary ---
:1960 Author Organization [facility] Address [address] [place] [address] Care Team Providers Name Role Phone Kleber Ledesma PA-C Primary Care Provider [phone] Reason for Visit Reason Comments Eye Pain Encounter Details Date Type Department Care Team Description 09/02/2014 Emergency [facility] Broderick Acosta C orneal ulcer of right [facility] [facility] MD eye [address] [facility] [place] [address] [address] [facility] [facility] [phone] [place], [place] [address] (Wo rk) Social History Tobacco Use Types [...] Sign Reading Time Taken Comments Blood Pressure 135/86 09/02/2014 9:30 AM CDT Pulse - - Temperature 36.8 ??C (98.3 ??F) 09/02/2014 9:14 AM CDT Respiratory Rate - - Oxygen Saturation 100% 09/02/2014 9:42 AM CDT Inhaled Oxygen Concentration - - Weight - - Height - - Body Mass Index - - documented in this encounter Discharge Instructions Discharge InstructionsMattBroderick reed MD - 09/02/2014 10:14 AM CDT Images from the original note were not included. Please make an appointment to follow up with [facility] in 1-2 days even if entirely better for your right corneal ulcer. Corneal Ulcer The cornea is the clear part of your eye in front of the iris (the colored portion). A corneal ulceris an open sore on the cornea. The most common cause for a corneal ulcer is infection by bacteria, virus or fungus. A scratch to the cornea that becomes infected can lead to a corneal ulcer. Use of contact lenses also increases the risk of a bacterial infection in the cornea. Any condition that causes dry eyes, such as decreased tear production or inability to blink normally, will increase the risk of a corneal ulcer. Chemical injury to the eye is another risk factor for a corneal ulcer. If you have a corneal ulcer there may be redness, pain, increased tears and pus or mucus draining from the eye. Your vision may be blurry and the eyelid may swell. Corneal ulcers are very serious. They may cause permanent scarring to the eye with partial or complete blindness. Therefore, this condition must be treated very carefully. With proper treatment, corneal ulcers should improve in 2-3 weeks. Close follow up with an home appliance washing machine mechanic (an ???MD?? eye doctor) is essential. Home Care: ?? Do not wear contact lenses until approved by your eye doctor. ?? Apply a cool compress to the eye (towel soaked in cool water). ?? Do not touch or rub your eye with your fingers. ?? Wash your hands often to prevent spread of the infection to the other eye. ?? You may use acetaminophen (Tylenol) or ibuprofen (Motrin, Advil) to control pain, unless another pain medicine was prescribed. [NOTE: If you have chronic liver or kidney disease or have ever had a stomach ulcer, talk with your doctor before using these medicines.] ?? Use prescribed antibiotic eye drops or ointment exactly as directed. Follow Up with your eye doctor in 1-2 days or as advised by our staff. For more information, contact the [employer] [employer] www.aao.org Get Prompt Medical Attention if any of the following occur: ?? Worsening vision ?? Increasing pain in the eye ?? Increased discharge from the eye ?? Fever of 100.4??F??(38??C) or higher, or as directed by your healthcare provider ?? [id number] [employer]. [address] [place] [address], [place] [address]. All rights reserved. This information is not intended as a substitute for professional medical care. Always follow your healthcare professional's instructions. Opioid Medication You have been given a prescription for an opioid (narcotic) pain medicine and/or have received a pain medicine while here in the emergency department. These medicines can make you drowsy or impaired. You must not drive, operate dangerous equipment, or engage in any other dangerous activities while taking these medications. If you drive while taking these medications, you could be arrested for DUI, ordriving under the influence. Do not drink any [...] remaining medication. Many prescription pain medications contain Tylenol (acetaminophen), including Vicodin, Tylenol #3, Rogers, Lortab, and Percocet. You should not take any extra pills of Tylenol if you are using these prescription medications or you can get very sick. Do not ever take more than 4000 mg of acetaminophen in any 24 hour period. All opioids tend to cause constipation. Drink plenty of water and eat foods that have a lot of fiber, such as fruits, vegetables, prune juice, apple juice and high fiber cereal. Take a laxative if you don???t move your bowels at least every other day. Miralax, Milk of Magnesia, Colace, or Senna can beused to keep you regular. documented in this encounter Medications at Time of Discharge Medication Sig Dispensed Refills Start Date End Date ofloxacin (OCUFLOX) 0.3 % Place 2 drops into 3 mL 0 09/07/2014 ophthalmic solution the right eye every 4 hours for 5 days aspirin 81 MG tablet Take 81 [...] by 0 09/22/2019 (OCUVITE PO) mouth daily [place]-3 Fatty Acids Take 2.4 g by 0 [...] more days documented as of this encounter ED Notes Adelaide Arevalo RN - 09/02/2014 9:45 AM CDT at bedside performing eye assessment Broderick Acosta MD - 09/02/2014 9:14 AM CDT History Chief Complaint: Eye Pain HPI Amie Scott is a 54 year old female with his history of HTN, hyperlipidemia who presents with eye pain. The patient notes that yesterday at around 1100 she had a sudden onset of flashing lights in her bilateral periphery without any pain or pressure. She also reports nausea, something strange with her hearing, and having difficulty focusing at this time, when trying to focus on objects the flashing lights would move to the center of her vision. She went to Urgent Care where she was negative for retinal tear and stroke. She notes that looking up/down and side to side was painful during these examinations and while driving home after examination. The flashing in her vision ceased around an hour after leaving Urgent Care, but she says she started experiencing pain and pressure at this time; starting in the left eye and then bilaterally. Patient reports being woken up by intense pain in her right eye at 0200 this morning. The continued pain and pressure prompted her to visit the ED this morning. Here she rates the pain at 4/10 and is experiencing pressure but no issues with her vision or hear ing. Patient denies currently having or having had migraines, but does endorse past tension headaches. Patient denies vomiting. Allergies: No known drug allergies Medications: Tobradex Aspirin Vibramycin Zocor Tenoretic Vitamin D3 Gabapentin [place]-3 Fatty acids Coenzyme Q10 Ginkgo Biloba Multiple Vitamins Calcium Carbonate Past Medical History: HTN Hyperlipidemia Cataracts Moderate persistent asthma Past Surgical History: Laparoscopy Family History: Father - [place], CAD Mother - Macular degeneration Brother - Allergies, CAD, Heart disease, Aneurysm, [place] Sister - [place], Ovarian cancer, breast cancer, other cancer, MS Social History: Marital Status: Smoking status: Former smoker, quit at 21, smoked 2-2.5 ppd Smokeless tobacco: Never used Alcohol use: Yes, very casual Review of Systems HENT: Positive for hearing changes, now resolved. Eyes: Positive for visual disturbance (Bilateral flashing lights; presently resolved.). Gastrointestinal: Positive for nausea. Negative for vomiting. Neurological: Negative for headaches. All other systems reviewed and are negative. Physical Exam First Vitals: Patient Vitals for the past 24 hrs: BP Temp Temp src Heart Rate SpO2 09/02/14 0942 - - - - 100 % 09/02/14 0941 - - - - 99 % 09/02/14 0940 - - - - 100 % 09/02/14 0939 - - - - 100 % 09/02/14 0930 135/86 mmHg - - - 100 % 09/02/1414 158/87 mmHg 98.3 ??F (36.8 ??C) Oral 66 100 % 09/02/14 0913 - - - - 98 % 09/02/1412 158/87 mmHg - - - - Physical Exam General: Pleasant, age appropriate.. Resting comfortably in the bed. HEENT: Oropharynx is moist, without lesions or trismus. Eyes: PERRL, EOMs intact. IOP: right 18 left 19 Conjunctiva normal. No hyphema or hypopyon. Slit lamp with fluorescein: Bilateral: Negative Jayden's test, no signs of open globe. No dendritic lesions. No cells or flare suggestive of iritis. Right eye: corneal ulcer at the 6'clock position Left eye: no corneal ulcer or abrasion Bilateral fundoscopic exam: no retinal hemorrhages or pallor. No optic disc edema/papilledema. No defect to the retina suggestive of detachment. Neck: Supple, no meningismus. CV: Regular rate and rhythm. No murmurs, rubs or gallops.. PULM: Clear to auscultation bilaterally. No respiratory distress. Good air exchange. ABD: Soft, non-tender, non-distended. No rebound, guarding or rigidity. MSK: No gross deformity to all four extremities. LYMPH: No cervical lymphadenopathy. NEURO: Alert. Good muscular tone. Skin: Warm, dry and intact. Psych: Mood is good and affect is appropriate. Emergency Department Course Past medical records, nursing notes, and vitals reviewed. (913) I performed an exam of the patient as documented above. She had slit lamp exam performed herein the ED. Findings above. (9408) I rechecked the patient. Findings and plan explained to the Patient and spouse. Patient discharged home with instructions regarding supportive care, medications, and reasons to return. The importance of close follow-up was reviewed. Impression & Plan Medical Decision Making: Amie Scott is a 54 year old female seen with complaints of right greater than eft eye pain withtransient visual changes. Patient has no signs of glaucoma and ruled out with Tonopen. No concern for temporal arteritis, iritis, uveitis, retinal detachment, or optic neuritis on physical examination.Fluorescein slit lamp exam reveals a corneal ulcer at the 6-o-clock position which is clearly the source of the patient???s symptoms. Patient will be initiated on Floxin and analgesics provided. I recommend urgent follow up with ophthalmology for further care and treatment. The exact cause of the corneal ulceration is uncertain as she is a non-contact lens wearer and has no history of recent corneal foreign body. Diagnosis: ICD-10-CM ICD-9-CM 1. Corneal ulcer of right eye H16.001 370.00 Discharge Medications: Details HYDROcodone-acetaminophen (NORCO) 5-325 MG per tablet Take 1-2 tablets by mouth every 4 hours as needed for moderate to severe pain, Disp-15 tablet, R-0, Local Print ofloxacin (FLOXIN) 0.3 % otic solution Place 2 drops in ear(s) 4 times daily for 5 days, Disp-2 mL, R-0, Local Print Lan Galeano 09/02/2014 [facility] ILan am serving as a scribe at 9:17 AM on 09/02/2014 to document services personally performed by Broderick Acosta MD based on my observations and the provider's statements to me. Broderick Acosta MD 09/02/14 1507 Adelaide Arevalo RN - 09/02/2014 9:11 AM CDT Started having bright flashing lights yesterday afternoon, like a strobe light, et couldn't focus.After an hour of the lights had pain and pressure in eyes. Went to urgent care, started on tobramycin-dexamethasone, et was told to come to ER if not resolved; states made eyes feel worse. Rating pain 4/10 at this time. A/O x 4; ABCD's intact. documented in this encounter Plan of Treatment Not on filedocumented as of this encounter Visit Diagnoses Diagnosis Corneal ulcer of right eye Corneal ulcer, unspecified documented in this encounter Administered Medications Inactive Administered Medications - up to 3 most recent administrations Medication Order MAR Action Action Date Dose Rate Site fluorescein 1 MG ophthalmic Given 09/02/2014 10:26 AM CDT 1 mg Both Eyes strip Starting on 09/02/14 at 0931, For 1 dose, ADELAIDE AREVALO: cabinet override proparacaine (ALCAINE) 0.5 % Given 09/02/2014 10:26 AM CDT 1 vicki p Eye Left ophthalmic solution Starting on 09/02/14 at 0931, For 1 dose, ADELAIDE AREVALO: cabinet override proparacaine (ALCAINE) 0.5 % Given 09/02/2014 10:25 AM CDT 1 vicki p Eye Right ophthalmic solution Starting on 09/02/14 at 0941, For 1 dose, BRODERICK ACOSTA: cabinet override documented in this encounter Active and Recently Administered Medications Times are shown in CDT. No Frequency Medication Order 08/31/2014 09/01/2014 09/02/2014 fluorescein 1 MG ophthalmic strip (COMPLETED) 1026 (Given - Provider: Adelaide Arevalo RN) Starting 09/02/14 at 0931, For 1 dose, ADELAIDE AREVALO: cabine t override proparacaine (ALCAINE) 0.5 % ophthalmic solution (COMPLETED) 1026 (Given - Provider: Adelaide Arevalo RN - Comment: administered by ) Starting 09/02/14 at 0931, For 1 dose, ADELAIDE AREVALO: cabine t override proparacaine (ALCAINE) 0.5 % ophthalmic solution (COMPLETED) 1025 (Given - Provider: Adelaide Arevalo RN - Comment: administered by ) Starting 09/02/14 at 0941, For 1 dose, BRODERICK ACOSTA : cabinet override documented in this encounter Care Teams Tape Keller Operator Relationship Specialty Start Date End Date Kleber Ledesma, PCP - General Physician Machine Sorter - 05/15/14 PADeanneC Medical documented as of this encounter
--- OUTSIDE RECORDS SUMMARY | 2022-01-05 11:38 | XMS_ITS | Encounter Summary ---
:1960 Author Organization [facility] Address [address] [place] [address]. [place] [address] Care Team Providers Name Role Phone Kleber Ledesma PA-C Primary Care Provider [phone] Reason for Visit Reason Onset Date Comments Panel Management 08/15/2014 mammogram scheduling Encounter Details Date Type Department Care Team Description 08/15/2014 Telephone [facility] Kleber Ledesma Panel Management Clinic [place] RACHNA Valderrama (mammogram scheduling) [address] [place] [address] [address] [place] [address] [place], [place] [phone] (Wo rk) [address] [phone] Social History Tobacco Use Types Packs/Day Years [...] this encounter Miscellaneous Notes Telephone Encounter - Eva Grubbs - 08/17/2014 4:28 PM CDT Relayed message to Amie. Making appt [facility],wanted the location Gave # for her to schedule. Telephone Encounter - Anjelica Jacobo - 08/15/2014 10:50 AM CDT Left message for patient to return call to clinic to schedule a mammogram, (patient overdue) Anjelica Jacobo (Flex) documented in this encounter Plan of Treatment Not on filedocumented as of this encounter Visit Diagnoses Not on filedocumented in this encounter Care Teams Forestry Extension Specialist Relationship Specialty Start Date End Date Kleber Ledesma, PCP - General Physician Learning Support Assistant - 05/15/14 PA-C Medical documented as of this encounter
--- OUTSIDE RECORDS SUMMARY | 2022-01-05 11:38 | XMS_ITS | Encounter Summary ---
:1960 Author Organization [facility] Address [address] [place] [address] Care Team Providers Name Role Phone Kleber Ledesma PA-C Primary Care Provider [phone] Reason for Visit Reason Comments Otalgia Encounter Details Date Type Department Care Team Description 09/10/[address] [facility] John Petty Other acu te Clinic Donna Damon PA-C nonsuppurative otitis [id number] [address] [address] VE media of right ear [address] [place], [place] (Primary Dx) [place] [phone] Social History Tobacco Use Types Packs/Day Years [...] Sign Reading Time Taken Comments Blood Pressure 122/80 09/10/2014 11:52 AM CDT Pulse 58 09/10/2014 11:52 AM CDT Temperature 36.7 ??C (98 ??F) 09/10/2014 11:52 AM CDT Respiratory Rate - - Oxygen Saturation 95% 09/10/2014 11:52 AM CDT Inhaled Oxygen Concentration - - Weight 62.7 kg (138 lb 3.2 oz) 09/10/2014 11:52 AM CDT Height - - Body Mass Index 26.11 09/01/2014 12:30 PM CDT documented in this encounter Progress Notes John Petty PA-C - 09/10/2014 11:46 AM CDT SUBJECTIVE: Amie Scott is a 54 year old female who presents to clinic today for the following health issues: EAR PAIN: ?? Duration: 09/09/14 started ?? Description (location/character/radiation): Right ear ?? Intensity: 6-7/10 ?? Accompanying signs and symptoms: sharp, shooting pains in her ear. ?? History (similar episodes/previous evaluation): None ?? Precipitating or alleviating factors: None ?? Therapies tried and outcome: Advil -Patient noticed right ear pain yesterday morning - shooting, sharp pains -Before the ear pain she had not noticed any symptoms -There is no sore throat -No fevers but has noticed some chills -She has not noticed discharge from the ear -There is no change in hearing -There is no dizziness -no other upper respiratory symptoms Problem list and histories reviewed & adjusted, as indicated. Additional history: as documented Patient Active Problem List Diagnosis ??? CARDIOVASCULAR SCREENING; LDL GOAL LESS THAN 160 ? ? Hypertension goal BP (blood pressure) < 140/90 ??? CARDIOVASCULAR SCREENING; LDL GOAL LESS THAN 130 ??? Family history of ischemic heart disease ??? Cataract ??? ACP (advance care planning) ??? Chest discomfort Past Surgical History Procedure Laterality Date ??? C nonspecific procedure laparoscopy by LABORATORY TECHNOLOGY TEACHER ??? Cholecystectomy History Substance Use Topics ??? Smoking status: [...] Disorder Sister MS ??? Macular Degeneration Mother ROS: See HPI OBJECTIVE: BP 122/80 mmHg Pulse 58 Temp(Src) 98 ??F (36.7 ??C) (Oral) Wt 138 lb 3.2 oz (62.687 kg) TrB153% LMP 02/22/2010 Body mass index is 26.13 kg/(m^2). GENERAL: healthy, alert and no distress HENT: normal cephalic/atraumatic, right ear: erythematous and slightly bulging, nose and mouth without ulcers or lesions, oropharynx clear and oral mucous membranes moist NECK: no adenopathy, no asymmetry, masses, or scars and thyroid normal to palpation RESP: lungs clear to auscultation - no rales, rhonchi or wheezes CV: regular rate and rhythm, normal S1 S2, no S3 or S4, no murmur, click or rub, no peripheral edemaand peripheral pulses strong Diagnostic Test Results: none ASSESSMENT/PLAN: 1. Other acute nonsuppurative otitis media of right ear Follow up if not improving. Some wax noted so also suggested cerumenolytics and ear flush after completing course of abx. - amoxicillin (AMOXIL) 500 MG capsule; Take 1 capsule (500 mg) by mouth 2 times daily Dispense: 20 capsule; Refill: 0 John Petty PA-C [facility] documented in this encounter Nursing Notes Meredith Rodriguez - 09/10/2014 11:54 AM CDT Chief Complaint Patient presents with ??? Otalgia Initial BP 122/80 mmHg Pulse 58 Temp(Src) 98 ??F (36.7 ??C) (Oral) Wt 138 lb 3.2 oz (62.687 kg) SpO2 95% LMP 02/22/2010 Estimated body mass index is 26.13 kg/(m^2) as calculated from the following: Height as of 09/01/14: 5' 1 (1.549 m). Weight as of this encounter: 138 lb 3.2 oz (62.687 kg). BP completed using cuff size: paulette Rodriguez MA documented in this encounter Plan of Treatment Not on filedocumented as of this encounter Visit Diagnoses Diagnosis Other acute nonsuppurative otitis media of right ear - Primary documented in this encounter Care Teams Gag Writer Relationship Specialty Start Date End Date Kleber Ledesma, PCP - General Physician Regulatory Affairs Consultant - 05/15/14 PADeanneC Medical documented as of this encounter
--- OUTSIDE RECORDS SUMMARY | 2022-01-05 11:38 | XMS_ITS | Encounter Summary ---
:1960 Author Organization [place] Address [address] [place] [address]. [place] [address] Care Team Providers Name Role Phone Kleber Ledesma PA-C Primary Care Provider [phone] Reason for Visit Reason Onset Date Comments Refill Request 08/16/2015 Atenolol Chlorthalid one Encounter Details Date Type Department Care Team Description 08/16/2015 Refill [facility] Kleber Ledesma Refill Request (Atenolol Clinic [place] RACHNA Valderrama Chlorthalidone ) [address] [facility], [address] [place] [address] [address] [place] [address] [place], [place] [phone] (Wo rk) [address] [phone] Social History Tobacco Use Types Packs/Day Years Used Date Smoking Tobacco: Former Smokeless Tobacco: Never Comments: quit smoking at 21 yrs old. sm oked 2 to 21/2 ppd Alcohol Use Standard Drinks/Week Comments Yes 2 (1 standard drink = 0.6 oz pure alcoho l) Sex Assigned at Date Recorded Not on file documented as of this encounter Miscellaneous Notes Telephone Encounter - Amanda Fonseca RN - 08/19/2015 7:54 AM CDT Called pt and notified of below. Scheduled for 08/25 at 1 PM Krista Fonseca RN, BSN Telephone Encounter - Kleber Ledesma PA-C - 08/16/2015 2:18 PM CDT She should be seen for labs and OV. ajp Telephone Encounter - Deisy Elizabeth RN - 08/16/2015 8:51 AM CDT Routing refill request to provider for review/approval because: Labs not current: Needs yearly potassium and creatinine. Deisy Elizabeth RN Telephone Encounter - Anjelica Jacobo - 08/16/2015 7:14 AM CDT Atenolol Chlorthalidone Last Written Prescription Date: 09/24/14 Last Fill Quantity: 30, # refills: 5 Last Office Visit with [facility], [facility] or [facility] prescribing provider: 02/19/15 POTASSIUM Date Value Ref Range Status 05/28/2014 3.4 3.4 - 5.3 mmol/L Final CREATININE Date Value Ref Range Status 05/28/2014 0.91 0.52 - 1.04 mg/dL Final BP Readings from Last 3 Encounters: 02/19/15 108/68 01/10/15 110/70 12/31/14 113/85 documented in this encounter Plan of Treatment Not on filedocumented as of this encounter Visit Diagnoses Diagnosis Essential hypertension with goal blood p ressure less than 140/90 - Primary Hypertension goal BP (blood pressure) < 140/90 Unspecified essential hypertension documented in this encounter Care Teams Director Of Transportation Relationship Specialty Start Date End Date Kleber Ledesma, PCP - General Physician Mother Baby Rn - 05/15/14 RACHNA Medical documented as of this encounter
--- OUTSIDE RECORDS SUMMARY | 2022-01-05 11:38 | XMS_ITS | Encounter Summary ---
:1960 Author Organization [place] Address [address] [place] [address]. [place] [address] Care Team Providers Name Role Phone Kleber Ledesma PA-C Primary Care Provider [phone] Reason for Visit Reason Onset Date Comments ER F/U 09/03/2014 Er visit on 5 for corneal ulcer of the right eye 10 ER/IP Encounter Details Date Type Department Care Team Description 09/03/2014 Telephone [facility] Kleber Ledesma ER F/U (Er visit on Clinic [place] RACHNA Valderrama 09/02/2014 for corneal [address] [facility], [address] [place] [address] ulcer of the right eye [address] [place] [address] 1/0 ER/IP) [place], [place] [phone] (Wo rk) [address] [phone] Social History Tobacco Use Types Packs/Day Years [...] Telephone Encounter - Deisy Elizabeth RN - 09/06/2014 9:19 AM CDT ED / Discharge Outreach Protocol ER on 09/02/2014 for corneal ulcer Patient Contact Attempt # 3 Was call answered? No. Left message on voicemail with information to call me back. Deisy Elizabeth RN Telephone Encounter - Deisy Elizabeth RN - 09/05/2014 9:46 AM CDT ED / Discharge Outreach Protocol ER on 09/02/2014 for corneal ulcer Patient Contact Attempt # 2 Was call answered? No. Left message on voicemail with information to call me back. Deisy Elizabeth RN Telephone Encounter - Deisy Elizabeth RN - 09/04/2014 2:11 PM CDT ED / Discharge Outreach Protocol ER on 09/02/2014 for Corneal ulcer Patient Contact Attempt # 1 Was call answered? No. Left message on voicemail with information to call me back. Deisy Elizabeth RN Telephone Encounter - Bernie Jerez - 09/03/2014 2:43 PM CDT Please call Er visit on 09/02/2014 for corneal ulcer of the right eye 1/0 ER/IP documented in this encounter Plan of Treatment Not on filedocumented as of this encounter Visit Diagnoses Not on filedocumented in this encounter Care Teams Airline Captain Relationship Specialty Start Date End Date Kleber Ledesma, PCP - General Physician Project Financial Analyst - 05/15/14 R[facility]NA Medical documented as of this encounter
--- OUTSIDE RECORDS SUMMARY | 2022-01-05 11:38 | XMS_ITS | Encounter Summary ---
:1960 Author Organization [facility] Address [address] [place] [address]. [place] [address] Care Team Providers Name Role Phone Kleber Ledesma PA-C Primary Care Provider [phone] Reason for Visit Reason Onset Date Comments Nurse Advice Line 09/17/2014 Ear wash appointment Encounter Details Date Type Department Care Team Description 09/17/2014 Telephone [facility] Kleber Ledesma Nurse Advice Line (Ear Clinic [place] RACHNA Valderrama wash appointment) [address] [place] [address] [place], [place] [phone] (Wo rk) [address] [phone] Social History Tobacco Use Types Packs/Day Years Used Date Smoking Tobacco: Former Smokeless Tobacco: Never Comments: quit smoking at 21 yrs old. sm oked 2 to 21/2 ppd Alcohol Use Standard Drinks/Week Comments Yes 2 (1 standard drink = 0.6 oz pure alcoho l) Sex Assigned at Date Recorded Not on file documented as of this encounter Miscellaneous Notes Telephone Encounter - Bonnie Shin RN - 09/17/2014 3:03 PM CDT LM for pt to call back. Note from [facility] states that pt should wait until after course of abx. Needs to wait until course is done. Bonnie Shin RN Flex Work Force Triage Nurse Telephone Encounter - Beth Reid - 09/17/2014 1:17 PM CDT Patient made a nurse only appointment for a ear wash tomorrow afternoon. Apparently she called this morning to make the appointment but was told she needed to speak with a nurse because she is on medication for a ear infection. Patient saw a doctor over at [facility] for ear pain, that doctor told her to get her ears washed out when the pain is gone and she is done taking all the medication. Patient still has 3 days left of the medication but has not ear pain. If patient can't do the appointment withthe nurse tomorrow please call her at [phone], otherwise no need to call her since a [facility] provider told her to come in. Beth Reid Director Corporate Compliance ASSESSMENT/PLAN: 1. Other acute nonsuppurative otitis media of right ear Follow up if not improving. Some wax noted so also suggested cerumenolytics and ear flush after completing course of abx. - amoxicillin (AMOXIL) 500 MG capsule; Take 1 capsule (500 mg) by mouth 2 times daily Dispense: 20 capsule; Refill: 0 documented in this encounter Plan of Treatment Not on filedocumented as of this encounter Visit Diagnoses Not on filedocumented in this encounter Care Teams Utility Bagger Relationship Specialty Start Date End Date Kleber Ledesma, PCP - General Physician Engineer Gas Pumping Station - 05/15/14 [facility] documented as of this encounter
--- OUTSIDE RECORDS SUMMARY | 2022-01-05 11:38 | XMS_ITS | Encounter Summary ---
:1960 Author Organization [place] Address [address] [place] [address]. [place] [address] Care Team Providers Name Role Phone Kleber Ledesma PA-C Primary Care Provider [phone] Reason for Visit Reason Onset Date Comments Refill Request 04/16/2015 Simvastatin 20 mg ta bs 20 Encounter Details Date Type Department Care Team Description 04/16/2015 Refill [facility] Kleber Ledesma Refill Request Clinic [place] RACHNA Valderrama (Simvastatin 20 mg tabs [facility], [address] [place] [address] [address] [place] [address] [place], [place] [phone] (Wo rk) [address] [phone] Social History Tobacco Use Types Packs/Day Years [...] Telephone Encounter - Deisy Elizabeth RN - 04/22/2015 9:58 AM CDT Prescription approved per [facility] Refill Protocol. Deisy Elizabeth RN Telephone Encounter - Lisette Muñoz Brian - 04/16/2015 6:05 PM CST Pending Prescriptions: Disp Refills simvastatin (ZOCOR) 20 MG tablet 30 tab*5 Sig: Take 1 tablet (20 mg) by mouth At Bedtime Last Written Prescription Date: 09/24/14 Last Fill Quantity: 30, # refills: 5 Last Office Visit with [facility] or [facility] prescribing provider: 02/19/2015 Future Office Visit: CHOLESTEROL Date Value Ref Range Status 09/24/2014 168 <200 mg/dL Final Comment: LDL Cholesterol is the primary guide to therapy. The NCEP recommends further evaluation of: patients with cholesterol greater than 200 mg/dL if additional risk factors are present, cholesterol greater than 240 mg/dL, triglycerides greater than 150 mg/dL, or HDL less than 40 mg/dL. HDL CHOLESTEROL Date Value Ref Range Status 09/24/2014 62 >50 mg/dL Final LDL CHOLESTEROL CALCULATED Date Value Ref Range Status 09/24/2014 86 0 - 129 mg/dL Final Comment: LDL Cholesterol is the primary guide to therapy: LDL-cholesterol goal in high risk patients is <100 mg/dL and in very high risk patients is <70 mg/dL. TRIGLYCERIDES Date Value Ref Range Status 09/24/2014 101 0 - 150 mg/dL Final Comment: Fasting specimen CHOLESTEROL/HDL RATIO Date Value Ref Range Status 09/24/2014 2.7 0.0 - 5.0 Final ALT Date Value Ref Range Status 05/28/2014 43 0 - 50 U/L Final WBC Date Value Ref Range Status 10/31/2014 6.8 4.0 - 11.0 10e9/L Final RBC COUNT Date Value Ref Range Status 10/31/2014 4.83 3.8 - 5.2 10e12/L Final HEMOGLOBIN Date Value Ref Range Status 10/31/2014 13.6 11.7 - 15.7 g/dL Final HEMATOCRIT Date Value Ref Range Status 10/31/2014 41.0 35.0 - 47.0 % Final MCV Date Value Ref Range Status 10/31/2014 85 78 - 100 fl Final MCH Date Value Ref Range Status 10/31/2014 28.2 26.5 - 33.0 pg Final MCHC Date Value Ref Range Status 10/31/2014 33.2 31.5 - 36.5 g/dL Final RDW Date Value Ref Range Status 10/31/2014 12.6 10.0 - 15.0 % Final PLATELET COUNT Date Value Ref Range Status 10/31/2014 259 150 - 450 10e9/L Final GLUCOSE Date Value Ref Range Status 05/28/2014 93 70 - 99 mg/dL Final OLL OFFICER documented in this encounter Plan of Treatment Not on filedocumented as of this encounter Visit Diagnoses Diagnosis CARDIOVASCULAR SCREENING; LDL GOAL LESS THAN 130 - Primary documented in this encounter Care Teams Interior Surface Insulation Worker Relationship Specialty Start Date End Date Kleber Ledesma, PCP - General Physician Asbestos Cloth Inspector - 05/15/14 PAKerrie Medical documented as of this encounter
--- OUTSIDE RECORDS SUMMARY | 2022-01-05 11:38 | XMS_ITS | Encounter Summary ---
:1960 Author Organization [facility] Address [address] [place] [address]. [place] [address] Care Team Providers Name Role Phone Kleber Ledesma PA-C Primary Care Provider [phone] Reason for Visit Reason Onset Date Comments Call Back 10/31/2014 patient is calling t o speak with a nurse Encounter Details Date Type Department Care Team Description 10/31/2014 Telephone [facility] Kleber Ledesma Call B ack (patient is Clinic [place] RACHNA Valderrama calling to speak with [address] [place] [address], [address] [place], [place] [address]ON ADELITA a nurse) [address] [place] [address] [place], [place] [phone] (Wo rk) [address] [phone] Social History Tobacco Use Types Packs/Day Years [...] Telephone Encounter - Deisy Elizabeth RN - 11/01/2014 8:37 AM CDT Kleber spoke with patient. Deisy Elizabeth RN Telephone Encounter - Ann Triplett - 10/31/2014 4:18 PM CDT Patient has called numerous times to speak with a nurse. documented in this encounter Plan of Treatment Not on filedocumented as of this encounter Visit Diagnoses Not on filedocumented in this encounter Care Teams Community Health Worker Relationship Specialty Start Date End Date Kleber Ledesma, PCP - General Physician Training Executive - 05/15/14 PA-C Medical documented as of this encounter
--- OUTSIDE RECORDS SUMMARY | 2022-01-05 11:38 | XMS_ITS | Encounter Summary ---
:1960 Author Organization [place] Address [address] [place] [address] Care Team Providers Name Role Phone Kleber Ng PA-C Primary Care Provider [phone] Encounter Details Date Type Department Care Team Description 10/31/2014 Orders Only [facility] Clinic Thr oat pain (Primary Dx); [facility] Acute sinusitis with symptom s > 10 days [facility], [address] [place] [address] Social History Tobacco Use Types Packs/Day Years Used Date Smoking Tobacco: Former Smokeless Tobacco: Never Comments: quit smoking at 21 yrs old. sm oked 2 to 21/2 ppd Alcohol Use Standard Drinks/Week Comments Yes 2 (1 standard drink = 0.6 oz pure alcoho l) Sex Assigned at Date Recorded Not on file documented as of this encounter Miscellaneous Notes Addendum Note - Kleber Ng PA-C - 10/31/2014 4:42 PM CDT Addended by: KLEBER NG on: 10/31/2014 04:42 PM Modules accepted: Orders documented in this encounter Plan of Treatment Not on filedocumented as of this encounter Procedures Procedure Name Priority Date/Time Associated Comments Diagnosis CBC WITH PLATELETS & Routine 10/31/2014 3:32 PM Throat pain R esults for this DIFFERENTIAL CDT procedure are i n the results section. MONONUCLEOSIS SCREEN Routine 10/31/2014 3:32 PM Throat pain R esults for this CDT procedure are i n the results section. documented in this encounter Results Mononucleosis screen (10/31/2014 3:32 PM CDT) [facility] Method Time Signature Mononucleosis Negative [facility] Screen [facility] Specimen Anatomical Collection Method Collection Time Receive d Time (Source) Location / / Volume Laterality Blood specimen 10/31/2014 3:32 PM 015 3:33 (specimen) CDT PM CDT Kleebr Ng PA-C LAB - BLOOD ORDERABLES Performing Organization Address City/State/ZIP Code Phon e Number [facility] [place] [address] CBC with platelets differential (10/31/2014 3:32 PM CDT) [facility] Method Time Signature WBC 6.8 4.0 - [facility] 11.0 CLINICS 10e9/L [place] RBC Count 4.83 3.8 - 5.2 [place] 10e12/L [facility] Hemoglobin 13.6 11.7 - [facility] 15.7 g/dL [facility] Hematocrit 41.0 35.0 - [facility] 47.0 % [facility] MCV 85 78 - 100 [facility] MCH 28.2 26.5 - [facility] 33.0 pg [facility] MCHC 33.2 31.5 - [place] 36.5 g/dL [facility] RDW 12.6 10.0 - [facility] 15.0 % [facility] Platelet Count 259 150 - 450 [place] 10e9/L [facility] Diff Method Automated [place] Method [facility] % Neutrophils 45.4 % [facility] % Lymphocytes 38.5 % [facility] % Monocytes 11.3 % [facility] % Eosinophils 4.4 % [facility] % Basophils 0.4 % [facility] Absolute 3.1 1.6 - 8.3 [place] Neutrophil 10e9/L [facility] Absolute 2.6 0.8 - 5.3 [place] Lymphocytes 10e9/L [facility] Absolute 0.8 0.0 - 1.3 [place] Monocytes 10e9/L [facility] Absolute 0.3 0.0 - 0.7 [place] Eosinophils 10e9/L [facility] Absolute 0.0 0.0 - 0.2 [facility] 10e9/L [facility] Specimen Anatomical Collection Method Collection Time Receive d Time (Source) Location / / Volume Laterality Blood specimen 10/31/2014 3:32 PM 015 3:33 (specimen) CDT PM CDT Kleber Ng PA-C LAB - BLOOD ORDERABLES Performing Organization Address City/State/ZIP Code Phon e Number [facility] [place] [phone] documented in this encounter Visit Diagnoses Diagnosis Throat pain - Primary Acute sinusitis with symptoms > 10 days Acute sinusitis, unspecified documented in this encounter Care Teams Director Software Relationship Specialty Start Date End Date Kleber Ng, PCP - General Physician Porcelain Turner - 05/15/14 R[facility] Medical documented as of this encounter
--- OUTSIDE RECORDS SUMMARY | 2022-01-05 11:38 | XMS_ITS | Encounter Summary ---
:1960 Author Organization [place] Address [address] [place] [address]. [place] [address] Care Team Providers Name Role Phone Kleber Ledesma PA-C Primary Care Provider [phone] Reason for Visit Reason Comments URI Encounter Details Date Type Department Care Team Description 02/19/2015 Office Visit [facility] Jose M Rees Cough (Pr imary Dx) [place] [id number] [place] [address], [address] [place] [address] [address] [place], [place] [id number] [place] [address] (Wo rk) [address] [phone] Social History Tobacco Use Types Packs/Day Years [...] Reading Time Taken Comments Blood Pressure 108/68 02/19/2015 5:37 PM CONVEYANCER Pulse 65 02/19/2015 5:37 PM CONVEYANCER Temperature 36.7 ??C (98.1 ??F) 02/19/2015 5:37 PM CONVEYANCER Respiratory Rate 16 02/19/2015 5:37 PM CONVEYANCER Oxygen Saturation 98% 02/19/2015 5:37 PM CONVEYANCER Inhaled Oxygen Concentration - - Weight 60.3 kg (133 lb) 02/19/2015 5:37 PM CONVEYANCER Height 157.5 cm (5' 2) 02/19/2015 5:37 PM CONVEYANCER Body Mass Index 24.33 02/19/2015 5:37 PM CONVEYANCER documented in this encounter Progress Notes Jose M Rees MD - 02/18/2015 3:45 PM CST HPI SUBJECTIVE: Amie Scott is a 55 year old female who presents to clinic today for the following health issues: RESPIRATORY SYMPTOMS ?? Duration: seen 01/10/15 urgent care- treated with azithromycin cough started ten days before that ?? Description cough and wheezing ?? Severity: mild ?? Accompanying signs and symptoms: None ?? 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 Precipitating or alleviating factors: ?? Therapies tried and outcome: none Persistent cough for the last 6 weeks or so. Treated for pharyngitis 01/10/15. Acute illness improvedbut cough has persisted. No current fever, congestion, sore throat. Feeling well. Over the last 10 days seems to be more dry than previously. Will have sometimes intense coughing fits. IN the past sebastien had cold induced asthma, but is not a consistent seasonal problem. Knows she has a tendency for cough to really persist after recovering. Sometimes hoarse, no bloating, heart burn. Review of Systems Constitutional: Negative. HENT: Negative for congestion. Respiratory: Positive for cough. Negative for hemoptysis, sputum production, shortness of breath andwheezing. Gastrointestinal: Negative. Neurological: Negative for headaches. Physical Exam Constitutional: She is well-developed, well-nourished, and in no distress. No distress. HENT: Right Ear: Tympanic membrane, external ear and ear canal normal. Left Ear: Tympanic membrane, external ear and ear canal normal. Mouth/Throat: Oropharynx is clear and moist. No oropharyngeal exudate. Eyes: Conjunctivae are normal. Cardiovascular: Normal rate, regular rhythm and normal heart sounds. Pulmonary/Chest: Effort normal and breath sounds normal. Lymphadenopathy: She has no cervical adenopathy. Skin: Skin is warm and dry. No rash noted. Nursing note and vitals reviewed. (R05) Cough (primary encounter diagnosis) Comment: normal exam, well appearing Plan: prilosec if cough triggered GERD. Otherwise suspect well but still recovering from lung injury2/2 infection RTC in 2w Jose M Rees MD EYANCER documented in this encounter Nursing Notes Patricia Segura CMA - 02/19/2015 5:42 PM CST Chief Complaint Patient presents with ??? URI Initial BP 108/68 mmHg Pulse 65 Temp(Src) 98.1 ??F (36.7 ??C) (Oral) Resp 16 Ht 5' 2 (1.575m) Wt 133 lb (60.328 kg) BMI 24.32 kg/m2 SpO2 98% LMP 02/22/2010 Estimated body mass index is 24.32 kg/(m^2) as calculated from the following: Height as of this encounter: 5' 2 (1.575 m). Weight as of this encounter: 133 lb (60.328 kg). BP completed using cuff size: large Patricia Segura CMA EYANCER documented in this encounter Plan of Treatment Not on filedocumented as of this encounter Visit Diagnoses Diagnosis Cough - Primary documented in this encounter Care Teams Sales Vendor Relationship Specialty Start Date End Date Kleber Ledesma, PCP - General Physician Inspector Process - 05/15/14 RACHNA Medical documented as of this encounter
--- OUTSIDE RECORDS SUMMARY | 2022-01-05 11:38 | XMS_ITS | Encounter Summary ---
:1960 Author Organization [facility] Address [address] [place] [address] Care Team Providers Name Role Phone Kleber Ledesma PA-C Primary Care Provider [phone] Reason for Visit Reason Comments Pharyngitis Encounter Details Date Type Department Care Team Description 10/29/2014 Office Visit [facility] Kleber Ledesma Acute pharyngitis [facility] [place] RACHNA Valderrama (Primary Dx) [address] [address] [facility], [address] [place], [place] [address] [place] [address] (Wo rk) [address] [phone] Social History Tobacco Use Types Packs/Day Years [...] Sign Reading Time Taken Comments Blood Pressure 94/56 10/29/2014 1:57 PM CDT Pulse 76 10/29/2014 1:57 PM CDT Temperature 36.8 ??C (98.3 ??F) 10/29/2014 1:57 PM CDT Respiratory Rate 20 10/29/2014 1:57 PM CDT Oxygen Saturation - - Inhaled Oxygen Concentration - - Weight 62.1 kg (137 lb) 10/29/2014 1:57 PM CDT Height - - Body Mass Index 25.47 09/24/2014 9:15 AM CDT documented in this encounter Progress Notes Kleber Ledesma PA-C - 10/29/2014 1:53 PM CDT HPI SUBJECTIVE: Amie Scott is a 54 year old female who presents to clinic today for the following health issues: SORE THROAT ?? Duration: a little over a week ?? Description (location/character/radiation): sore throat on and off, exhausted, ?? Intensity: moderate ?? Accompanying signs and symptoms: seems to be getting worse every time it comes back ?? History (similar episodes/previous evaluation): see notes ?? Precipitating or alleviating factors: exposure to daughter with strep and sinus infections ?? Therapies tried and outcome: Advil Problem list and histories reviewed & adjusted, as indicated. Additional history: as documented Problem list, Medication list, Allergies, and Medical/Social/Surgical histories reviewed in EPIC andupdated as appropriate. ROS: Constitutional, HEENT, cardiovascular, pulmonary, gi and gu systems are negative, except as otherwise noted. OBJECTIVE: BP 94/56 mmHg Pulse 76 Temp(Src) 98.3 ??F (36.8 ??C) (Oral) Resp 20 Wt 137 lb (62.143 kg) LMP 02/22/2010 Body mass index is 25.47 kg/(m^2). GENERAL APPEARANCE: healthy, alert and no distress HENT: ear canals and TM's normal, tonsillar hypertrophy and tonsillar erythema RESP: lungs clear to auscultation - no rales, rhonchi or wheezes CV: regular rates and rhythm, normal S1 S2, no S3 or S4 and no murmur, click or rub LYMPHATICS: normal ant/post cervical and supraclavicular nodes SKIN: no suspicious lesions or rashes PSYCH: mentation appears normal and affect normal/bright Diagnostic test results: Results for orders placed or performed in visit on 10/29/14 (from the past 24 hour(s)) Strep, Rapid Screen Result Value Ref Range Specimen Description Throat Rapid Strep A Screen NEGATIVE: No Group A streptococcal antigen detected by immunoassay, await culture report. Micro Report Status FINAL 10/29/2014 ASSESSMENT/PLAN: ICD-10-CM ICD-9-CM 1. Acute pharyngitis J02.9 462 Strep, Rapid Screen Beta strep group A culture Recommended supportive cares including warm salt water gargles, Tylenol/Ibuprofen as directed OTC, rest, humidifier. Follow-up in 3-5 days if symptoms are worsening or not improving as expected/discussed. Can call clinic if wants Rx for magic mouthwash that we discussed. Kleber Ledesma PA-C [facility] ROS Physical Exam documented in this encounter Nursing Notes Gabrielle Garcia MA - 10/29/2014 1:59 PM CDT Chief Complaint Patient presents with ??? Pharyngitis Initial BP 94/56 mmHg Pulse 76 Temp(Src) 98.3 ??F (36.8 ??C) (Oral) Resp 20 Wt 137 lb (62.143 kg) LMP 02/22/2010 Estimated body mass index is 25.47 kg/(m^2) as calculated from the following: Height as of 09/24/14: 5' 1.5 (1.562 m). Weight as of this encounter: 137 lb (62.143 kg). BP completed using cuff size: regular Gabrielle Garcia MA documented in this encounter Plan of Treatment Not on filedocumented as of this encounter Procedures Procedure Name Priority Date/Time Associated Diagnosis Comme nts RAPID STREP SCREEN Routine 10/29/2014 2:11 PM Acute pharyngiti s Results for this THROAT SWAB CDT procedure are i n the results section. BETA HEMOLYTIC Routine 10/29/2014 2:11 PM Acute pharyngitis Re sults for this STREP GROUP A CDT procedure are in CULTURE the results section. documented in this encounter Results Beta strep group A culture (10/29/2014 2:11 PM CDT) Component Value Ref Test Analysis Performed At [facility] Range Method Time Signature Specimen Throat [place] Description [facility] Culture Micro No Beta [place] Streptococcus CLINICS isolated [place] Micro Report FINAL 10/31/2014 [place] Status [facility] Specimen Anatomical Collection Method Collection Time Receive d Time (Source) Location / / Volume Laterality Specimen from 10/29/2014 2:11 PM 10/30/19 15 2:12 throat CDT PM CDT (specimen) Kleber Ledesma PA-C LAB - MICRO GENERAL ORDERABL ES Performing Organization Address City/[facility]/ZIP Code Phon e Number [facility] [id number] [place] [id number] Strep, Rapid Screen (10/29/2014 2:11 PM CDT) Component Value Ref Test Analysis Performed At [facility] Range Method Time Signature Specimen Throat [place] Description [facility] Rapid Strep A NEGATIVE: No Group A strepto coccal antigen detected by immunoassay, await [place] Screen culture report. [facility] Micro Report FINAL 10/29/2014 [place] Status [facility] Specimen Anatomical Collection Method Collection Time Receive d Time (Source) Location / / Volume Laterality Specimen from 10/29/2014 2:11 PM 10/30/19 15 2:12 throat CDT PM CDT (specimen) Kleber Ledesma PA-C LAB - MICRO GENERAL ORDERABL ES Performing Organization Address City/[facility] Code Phon e Number [facility] [id number] [place] [phone] documented in this encounter Visit Diagnoses Diagnosis Acute pharyngitis - Primary documented in this encounter Care Teams Exhibit Electrician Relationship Specialty Start Date End Date Kleber Ledesma, PCP - General Physician Operations Business Partner - 05/15/14 [facility] documented as of this encounter
--- OUTSIDE RECORDS SUMMARY | 2022-01-05 11:38 | XMS_ITS | Encounter Summary ---
:1960 Author Organization [facility] Address [address] [place] [address]. [place] [address] Care Team Providers Name Role Phone Kleber Ledesma PA-C Primary Care Provider [phone] Reason for Visit Reason Comments Sick Encounter Details Date Type Department Care Team Description 01/10/2015 Office Visit [facility] Celestine Lim Acute pharyngitis, unspecified etiology (Primary Dx); Clinic [facility] STUDENT SERVICES COUNSELOR Viral URI with cough; [address] [address] [facility] [address] Acute bronchitis with symptoms > 10 days [place], [place] [address] [phone] Social History Tobacco Use Types Packs/Day Years [...] Reading Time Taken Comments Blood Pressure 110/70 01/10/2015 3:40 PM SPACE OPERATIONS OFFICER Pulse 73 01/10/2015 3:40 PM SPACE OPERATIONS OFFICER Temperature 36.8 ??C (98.3 ??F) 01/10/2015 3:40 PM SPACE OPERATIONS OFFICER Respiratory Rate - - Oxygen Saturation 98% 01/10/2015 3:40 PM SPACE OPERATIONS OFFICER Inhaled Oxygen Concentration - - Weight 59.4 kg (131 lb) 01/10/2015 3:40 PM SPACE OPERATIONS OFFICER Height - - Body Mass Index 23.96 12/31/2014 10:00 AM SPACE OPERATIONS OFFICER documented in this encounter Patient Instructions Patient InstructionsCelestine Lim, ETHAN STUDENT SERVICES COUNSELOR - 01/10/2015 4:12 PM SPACE OPERATIONS OFFICER Images from the original note were not included. Bronchitis (Adult: Abx Tx) BRONCHITIS is an infection of the air passages (???bronchial tubes?? ). It often occurs during the common cold. Symptoms include cough with mucus (phlegm) and low-grade fever. Bronchitis usually lasts 7-14 days. Mild cases can be treated with simple home remedies. More severe infection is treated withan antibiotic. ?? Home Care: 1. If symptoms are severe, rest at home for the first 2-3 days. When you resume activity, don't let yourself get too tired. 2. Do not smoke. Avoid being exposed to the smoke of others. 3. You may use acetaminophen (Tylenol) or ibuprofen (Motrin, Advil) to control fever or pain, unlessanother medicine was prescribed for this. [NOTE: If you have chronic liver or kidney disease or everhad a stomach ulcer or GI bleeding, talk with your doctor before using these medicines.] 4. Your appetite may be poor, so a light diet is fine. Avoid dehydration by drinking 6-8 glasses of fluids per day (water, soft, drinks, juices, tea, soup, etc.). Extra fluids will help loosen secretions in the lungs. 5. Vmsd-etc-ixtdvlg cough medicines that contain?dextromethorphan?(such as Robitussin DM) and decongestants (Actifed or Sudafed) may help relieve cough and congestion. [NOTE: Do not use decongestants if you have high blood pressure.] 6. Finish all antibiotic medicine, even if you are feeling better after only a few days. Follow Up with your doctor or as directed if you don???t start to feel better after three days. [NOTE: If you are age 65 or older, or if you have chronic asthma or COPD, we recommend a PNEUMOCOCCAL VACCINATION every five years and a yearly INFLUENZAVACCINATION (FLU-SHOT) every . Ask your doctor about this. If you had an X-ray, a radiologist will review it. You will be notified of any new fi ndings that may affect your care.] Get Prompt Medical Attention if any of the following occur: ?? Fever over 100.4??F (38.0??C) for more than three days ?? Trouble breathing, wheezing or pain with breathing ?? Coughing up blood or increased amounts of colored sputum ?? Weakness, drowsiness, headache, facial pain, ear pain or a stiff neck ?? [id number] [employer]. [address] [place] [address]. All rights reserved. This information is not intended as a substitute for professional medical care. Always follow your healthcare professional's instructions. E OPERATIONS OFFICER documented in this encounter Progress Notes Celestine Lim APRN CNP - 01/10/2015 3:42 PM CST SUBJECTIVE: Amie Scott is a 54 year old female who presents to clinic today for the following health issues: Patient started feeling 2 Fridays ago with cold sx - ST - also has some pain in her upper back area - No fever - bilateral ear pressure BP 110/70 mmHg Pulse 73 Temp(Src) 98.3 ??F (36.8 ??C) (Oral) Wt 131 lb (59.421 kg) SpO2 98% LMP 02/22/2010 Questioned patient about current smoking habits. Pt. has never smoked. RESPIRATORY SYMPTOMS ?? Duration: 3 weeks ?? Description nasal congestion, rhinorrhea, sore throat, cough, fever, chills, fatigue/malaise, hoarse voice and myalgias ?? Severity: moderate ?? Accompanying signs and symptoms: None ?? History (predisposing factors): none ?? Precipitating or alleviating factors: None ?? Therapies tried and outcome: rest and fluids oral decongestant antihistamine acetaminophen OTC NSAID guaifenesin ROS: Constitutional, HEENT, cardiovascular, pulmonary, gi and gu systems are negative, except as otherwise noted. OBJECTIVE: BP 110/70 mmHg Pulse 73 Temp(Src) 98.3 ??F (36.8 ??C) (Oral) Wt 131 lb (59.421 kg) SpO2 98% LMP 02/22/2010 Body mass index is 23.95 kg/(m^2). GENERAL: healthy, alert and no distress [...] no gross musculoskeletal defects noted, no edema Results for orders placed or performed in visit on 01/10/15 Rapid strep screen Result Value Ref Range Specimen Description Throat Rapid Strep A Screen NEGATIVE: No Group A streptococcal antigen detected by immunoassay, await culture report. Micro Report Status FINAL 01/10/2015 ASSESSMENT: Bronchitis PLAN: 1. Acute pharyngitis, unspecified etiology//Viral URI with cough//Acute bronchitis with symptoms > 10 days May be a viral URI which has progressed to bacterial bronchitis. Treat as below with other symptomatic management and follow-up with any persisting concerns. - azithromycin (ZITHROMAX) 250 MG tablet; Two tablets first day, then one tablet daily for four days. Dispense: 6 tablet; Refill: 0 Celestine Lim APRN CNP [facility] E OPERATIONS OFFICER documented in this encounter Nursing Notes Janeen Ellis CMA - 01/10/2015 3:42 PM CST Please see the progress note for documentation on this office visit E OPERATIONS OFFICER documented in this encounter Plan of Treatment Not on filedocumented as of this encounter Procedures Procedure Name Priority Date/Time Associated Diagnosis Comme nts RAPID STREP SCREEN Routine 01/10/2015 3:46 PM Acute pharyngiti s, Results for this THROAT SWAB SPACE OPERATIONS OFFICER unspecified etiology procedu re are in the results section. BETA HEMOLYTIC Routine 01/10/2015 3:46 PM Acute pharyngitis, R esults for this STREP GROUP A SPACE OPERATIONS OFFICER unspecified etio logy procedure are in CULTURE Viral URI with cough the res ults section. documented in this encounter Results Beta strep group A culture (01/10/2015 3:46 PM SPACE OPERATIONS OFFICER) Component Value Ref Test Analysis Performed At [facility] gist Range Method Time Signature Specimen Throat [facility] Culture Micro No Beta [place] Streptococcus CLINICS isolated [place] Micro Report FINAL 01/12/2015 [facility] Specimen Anatomical Collection Method Collection Time Receive d Time (Source) Location / / Volume Laterality Specimen from 01/10/2015 3:46 PM 01/11/20 15 4:02 throat SPACE OPERATIONS OFFICER PM SPACE OPERATIONS OFFICER (specimen) Celestine Gilaurelio Lim APRN STUDENT SERVICES COUNSELOR LAB - MICRO GENERAL OR DERABLES Performing Organization Address City/[facility]/ZIP Code Phon e Number [facility] [id number] [address] [facility] [place] [address] Rapid strep screen (01/10/2015 3:46 PM SPACE OPERATIONS OFFICER) Component Value Ref Test Analysis Performed At [facility] Range Method Time Signature Specimen Throat [facility] Rapid Strep A NEGATIVE: No Group A strepto coccal antigen detected by immunoassay, await [place] Screen culture report. [facility] Micro Report FINAL 01/10/2015 [facility] Specimen Anatomical Collection Method Collection Time Receive d Time (Source) Location / / Volume Laterality Specimen from 01/10/2015 3:46 PM 01/11/20 15 3:47 throat SPACE OPERATIONS OFFICER PM SPACE OPERATIONS OFFICER (specimen) Yesymariamjonelle Gilaurelio Lim APRN STUDENT SERVICES COUNSELOR LAB - MICRO GENERAL OR DERABLES Performing Organization Address City/[facility]/ZIP Code Phon e Number [facility] [id number] [facility] [place] [address] documented in this encounter Visit Diagnoses Diagnosis Acute pharyngitis, unspecified etiology - Primary Viral URI with cough Acute upper respiratory infections of un specified site Acute bronchitis with symptoms > 10 days Acute bronchitis documented in this encounter Care Teams Manufacturing Director Relationship Specialty Start Date End Date Kleber Ledesma, PCP - General Physician Yard Operator - 05/15/14 [facility] documented as of this encounter
--- OUTSIDE RECORDS SUMMARY | 2022-01-05 11:38 | XMS_ITS | Encounter Summary ---
:1960 Author Organization [facility] Address [address] [place] [address]. [place] [address] Care Team Providers Name Role Phone Kleber Ledesma PA-C Primary Care Provider [phone] Reason for Visit Reason Comments Eye Problem Flashing lights in eye Urgent Care Encounter Details Date Type Department Care Team Description 09/01/2014 Office Visit [facility] Blake Vargas, Eye pr oblem (Primary Dx); Urgent Care Kavitha pierre MD Uveitis [address] [address] [place] [address] [id number] Social History Tobacco Use Types Packs/Day Years [...] Sign Reading Time Taken Comments Blood Pressure 110/62 09/01/2014 12:30 PM CDT Pulse 65 09/01/2014 12:30 PM CDT Temperature 37.1 ??C (98.7 ??F) 09/01/2014 12:30 PM CDT Respiratory Rate 18 09/01/2014 12:30 PM CDT Oxygen Saturation 95% 09/01/2014 12:30 PM CDT Inhaled Oxygen Concentration - - Weight 63.1 kg (139 lb 1.6 oz) 09/01/2014 12:30 PM CDT Height 154.9 cm (5' 1) 09/01/2014 12:30 PM CDT Body Mass Index 26.28 09/01/2014 12:30 PM CDT documented in this encounter Progress Notes Blake Vargas MD - 09/01/2014 1:12 PM CDT SUBJECTIVE: Amie Scott, a 54 year old female scheduled an appointment to discuss the following issues: Eye problem Uveitis Acute onset of flashing lights in her eyes. Was seen it work and sent over by her nurse. She denies any headaches she denies any visual field cuts. She denies a sensation of the shade going down on hereye. No fever no chills Medical, social, surgical, and family histories reviewed. ROS: C: NEGATIVE for fever, chills EYES: as described above R: NEGATIVE for significant cough or SOB CV: NEGATIVE for chest pain, palpitations GI: NEGATIVE for nausea, abdominal pain, heartburn, or change in bowel habits : NEGATIVE for frequency, dysuria, or hematuria M: NEGATIVE for significant arthralgias or myalgia N: NEGATIVE for weakness, dizziness or paresthesias or headache OBJECTIVE: BP 110/62 mmHg Pulse 65 Temp(Src) 98.7 ??F (37.1 ??C) (Oral) Resp 18 Ht 5' 1 (1.549 m) Wt139 lb 1.6 oz (63.095 kg) BMI 26.30 kg/m2 SpO2 95% LMP 02/22/2010 EXAM: GENERAL APPEARANCE: healthy, alert and no distress EYES: eomi, perrl HENT: ear canals and TM's normal and nose and mouth without ulcers or lesions RESP: lungs clear to auscultation - no rales, rhonchi or wheezes CV: regular rates and rhythm, normal S1 S2, no S3 or S4 and no murmur, click or rub - ABDOMEN: soft, nontender, no HSM or masses and bowel sounds normal MS: extremities normal- no gross deformities noted, no evidence of inflammation in joints, FROM in all extremities. ASSESSMENT/PLAN: (V41.1) Eye problem (primary encounter diagnosis) Comment: Plan: tobramycin-dexamethasone (TOBRADEX) ophthalmic suspension (364.3) Uveitis Comment: Plan: tobramycin-dexamethasone (TOBRADEX) ophthalmic suspension Her eye exam was positive of causing her some pain. She had pain in both her eyes with the ophthalmologic examination. This could be a uveitis iritis type of problem/she did not have a red eye that would suggest she has something on the cornea. She is to get back to us in the morning using her drops today. If her eye becomes red if there is more pain any other symptoms she needs to be seen VITALIY slit lamp evaluation through the ER for evaluation by ophthalmology I have encouraged her that she may need to go to the emergency room and she did not want to go. documented in this encounter Nursing Notes Grazyna Garcia CMA - 09/01/2014 12:33 PM CDT Chief Complaint Patient presents with ??? Eye Problem Flashing lights in eye ??? Urgent Care Initial BP 110/62 mmHg Pulse 65 Temp(Src) 98.7 ??F (37.1 ??C) (Oral) Resp 18 Ht 5' 1 (1.549m) Wt 139 lb 1.6 oz (63.095 kg) BMI 26.30 kg/m2 SpO2 95% LMP 02/22/2010 Estimated body mass index is 26.3 kg/(m^2) as calculated from the following: Height as of this encounter: 5' 1 (1.549 m). Weight as of this encounter: 139 lb 1.6 oz (63.095 kg). BP completed using cuff size: regular, rt documented in this encounter Plan of Treatment Not on filedocumented as of this encounter Visit Diagnoses Diagnosis Eye problem - Primary Other eye problems Uveitis Unspecified iridocyclitis documented in this encounter Care Teams Partner Manager Relationship Specialty Start Date End Date Kleber Ledesma, PCP - General Physician Contract Project Manager - 05/15/14 [facility] documented as of this encounter
--- OUTSIDE RECORDS SUMMARY | 2022-01-05 11:38 | XMS_ITS | Encounter Summary ---
:1960 Author Organization [place] Address [address] [place] [address] Care Team Providers Name Role Phone Kleber Ledesma PA-C Primary Care Provider [phone] Reason for Visit Reason Comments Insect Bites tick bite Encounter Details Date Type Department Care Team Description 06/26/2014 Office Visit [facility] OgCelestine fonseca Tick b ite (Primary Dx); Clinic [facility] HUMAN RESOURCE CONSULTANT Erythema migrans (Lyme disease) [address] [facility] [id number] [place] [address] 55 [phone] [address] [phone] Social History Tobacco Use Types Packs/Day Years [...] Sign Reading Time Taken Comments Blood Pressure 90/50 06/26/2014 4:30 PM CDT Pulse 63 06/26/2014 4:30 PM CDT Temperature 37 ??C (98.6 ??F) 06/26/2014 4:30 PM CDT Respiratory Rate 15 06/26/2014 4:30 PM CDT Oxygen Saturation 97% 06/26/2014 4:30 PM CDT Inhaled Oxygen Concentration - - Weight 61.7 kg (136 lb) 06/26/2014 4:30 PM CDT Height 154.9 cm (5' 1) 06/26/2014 4:30 PM CDT Body Mass Index 25.7 06/26/2014 4:30 PM CDT documented in this encounter Patient Instructions Patient Celestine Medrano Jefferyaurelio, ETHAN HUMAN RESOURCE CONSULTANT - 06/26/2014 4:48 PM CDT Images from the original note were not included. Lyme Disease Lyme disease is caused by bacteria passed to you during the bite of a deer tick. Because the tick isso small, most people with Lyme disease do not remember being bitten. Since tests for Lyme disease are not always accurate early in the disease, the diagnosis can be hard to make. If the disease is suspected and the tests are negative, repeat testing may be required. If untreated, Lyme disease may affect many parts of the body over months to years. Not everyone willhave all the symptoms. 1. The first symptoms may appear within a few days to a month after the tick bite. These symptoms include a round red rash that grows up to 12 inches across and looks like a bull's-eye target with darker outer ring and a darker center. There may fever, chills, fatigue, body aches and headache. This first stage may be skipped in 20-30% of infected persons. It goes away on its own, even without treatment. 2. If the first symptoms were not treated, new symptoms may appear weeks to months after the bite. These symptoms include episodes of joint pain and swelling (especially the knees). Chronic arthritis develops in about 10% of these people. 3. Later, there may be weakness in an arm, leg or one side of the face, meningitis (headache, fever and neck pain), numbness and tingling in the arms or legs, confusion, and memory loss. When the symptoms of Lyme disease are treated early enough, they can be stopped. Sometimes a second or third course of antibiotics may be needed if symptoms persist. Home Care: 1) If oral antibiotics have been prescribed, it is very important that you take them exactly as directed until they are completely gone. 2) You may use acetaminophen (Tylenol) or ibuprofen (Motrin, Advil) to control pain, unless another pain medicine was prescribed. [ NOTE : If you have chronic liver or kidney disease or ever had a stomach ulcer or GI bleeding, talk with your doctor before using these medicines.] (Aspirin should never be used in anyone under 18 years of age who is ill with a fever. It may cause severe liver damage.) Follow Up with your doctor as directed. Get Prompt Medical Attention if any of the following occur: -- Current symptoms get worse -- Unexplained fever, neck pain or stiffness, or headache -- Arm, leg or facial weakness -- Irregular or rapid heart beat -- Joint pain or swelling -- Numbness and tingling in the arms or legs, confusion or memory loss ?? [id number] [employer] [place], [place] [id number]. All rights reserved. This information is not intended as a substitute for professional medical care. Always follow your healthcare professional's instructions. Tick Bite (Abx Tx) You have been bitten by a tick. Ticks are small insects that feed on the blood of rodents, rabbits, birds, deer, dogs and humans. The bite may cause a local reaction like that of a spider, with a smallamount of local redness, itching and slight swelling. Sometimes there is no local reaction. Most tick bites are harmless, but some ticks carry diseases that can be passed to people at the timeof the bite. Lyme disease is of greatest concern. At the present time, you have no symptoms of Lyme disease or other serious reaction to the bite. It is important to watch for the warning signs, which could appear weeks to months after the tick bite. Home Care: 4. If itching is a problem, avoid tight clothing and anything that heats up your skin (hot showers/baths, direct sunlight). This will tend to make the itching worse. Use ice packs to reduce redness as well as itching. 5. An ice pack (ice cubes in a plastic bag, wrapped in a towel) will reduce local areas of redness and itching. Lanacort or Lanacaine cream (contains benzocaine and is available [id number]) will reduce itching. 6. If large areas of the skin are involved and if no other antihistamine was prescribed, Benadryl (diphenhydramine) is an antihistamine available at drug and grocery stores. It may be used to reduce itching if large areas of the skin are involved. Use lower doses during the daytime and higher doses atbedtime since the drug may make you sleepy. [NOTE: Do not use Benadryl if you have glaucoma or difficulty urinating due to an enlarged prostate.] Claritin (loratidine) is an antihistamine that causes less drowsiness and is a good alternative for daytime use. 7. ANTIBIOTICS are being prescribed to reduce your risk of getting Lyme's disease. It is very important that you take them exactly as directed until they are completely finished. Follow Up with your doctor or as advised. Get Prompt Medical Attention if any of the following occur: Signs Of Local Infection (next few days) ?? Increasing redness around the bite site ?? Increased pain or swelling ?? Fever over 100.4??F (38.0??C) ?? Fluid draining from the bite area Signs Of Tick-Related Disease (next few weeks to months) ?? Circular red ring-like rash appears at the bite area within 1-3 weeks ?? Tiredness, fever or chills, nausea or vomiting ?? Neck pain or stiffness, headache, confusion ?? Muscle, bone aching ?? Irregular or rapid heart beat ?? Joint pain or swelling (especially the knee joint) ?? Numbness or tingling or weakness in the arms or legs ?? Weakness on one side of the face ?? [id number] [employer]. [address] [place] [address]. All rights reserved. This information is not intended as a substitute for professional medical care. Always follow your healthcare professional's instructions. documented in this encounter Progress Notes Celestine Lim APRN CNP - 06/29/2014 2:57 PM CDT Quick Note: Please inform patient Lyme titer results are within acceptable limits. Celestine Lim APRN CNP Celestine Lim APRN CNP - 06/26/2014 4:55 PM CDT Chief Complaint Patient presents with ??? Insect Bites tick bite SUBJECTIVE: Amie M Tyler is a 54 year old female who presents with a rash on the right flank area after tick bite about 10 days ago. Denying any body aches. No joint pains. There is now some slight tenderness. Increasing erythema. OBJECTIVE: BP 90/50 Pulse 63 Temp(Src) 98.6 ??F (37 ??C) (Oral) Resp 15 Ht 5' 1 (1.549 m) Wt 136 lb (61.689 kg) BMI 25.71 kg/m2 SpO2 97% LMP 02/22/2010 middle-aged female in no acute distress. Erythematous bull's-eye-like rash on the right flank area. No other unusual skin presentation. Otherwise lung sounds were clear to auscultation throughout. Heart was regular rhythm and rate. Abdomen is soft and nontender and bowel sounds active. ASSESSMENT/PLAN: (919.4, E906.4) Tick bite (primary encounter diagnosis)//(088.81) Erythema migrans (Lyme disease) Comment: Fresh suspicions of erythema migrans treated as below. Tiny days pending. Educated Appropriately. Plan to follow up with any ongoing concerns. Will increase Doxy to 21 days with positive testing Plan: doxycycline (VIBRAMYCIN) 100 MG capsule, Lyme Disease Sarah with reflex to WB Serum Celestine Lim APRN HUMAN RESOURCE CONSULTANT Grazyna Garcia CMA - 06/26/2014 4:26 PM CDT SUBJECTIVE: Amie Scott is a 54 year old female who presents to clinic today for the following health issues: . Tick bite ?? Duration: 2 weeks ago ?? Description (location/character/radiation): Right side ?? Intensity: mild ?? Accompanying signs and symptoms: None ?? History (similar episodes/previous evaluation): None ?? Precipitating or alleviating factors: None ?? Therapies tried and outcome: None documented in this encounter Nursing Notes Grazyna Garcia CMA - 06/26/2014 4:34 PM CDT Chief Complaint Patient presents with ??? Insect Bites tick bite Initial BP 90/50 Pulse 63 Temp(Src) 98.6 ??F (37 ??C) (Oral) Resp 15 Ht 5' 1 (1.549 m) Wt136 lb (61.689 kg) BMI 25.71 kg/m2 SpO2 97% LMP 02/22/2010 Estimated body mass index is 25.71 kg/(m^2) as calculated from the following: Height as of this encounter: 5' 1 (1.549 m). Weight as of this encounter: 136 lb (61.689 kg). BP completed using cuff size: regular, rt Discussed best practices with her documented in this encounter Plan of Treatment Not on filedocumented as of this encounter Procedures Procedure Name Priority Date/Time Associated Diagnosis Comme nts LYME DISEASE TOTAL Routine 06/26/2014 4:55 PM Erythema migrans Results for this ABS BLD WITH REFLEX CDT (Lyme disease) proced ure are in TO CONFIRM CLIA the results section. documented in this encounter Results Lyme Disease Sarah with reflex to WB Serum (06/26/2014 4:55 PM CDT) athologist Signature Lyme Disease 0.38 0.00 - [facility] 0.89 [facility] Comment: Negative, Absence of detectable Borrelia burdorferi antibodies. A negative result does not exclude the possibility of Borrelia burgdorferi infection. If early Lyme disease is suspected, a seco nd sample should be collected and tested 2 to 4 weeks later. Specimen Anatomical Collection Method Collection Time Receive d Time (Source) Location / / Volume Laterality Blood specimen 06/26/2014 4:55 PM 015 4:56 (specimen) CDT PM CDT Celestine Lim APRN HUMAN RESOURCE CONSULTANT LAB - BLOOD ORDERABLES Performing Organization Address City/State/ZIP Code Phon e Number [facility] [address] [place] [address] [place] documented in this encounter Visit Diagnoses Diagnosis Tick bite - Primary Other, multiple, and unspecified sites, insect bite, nonvenomous, without mention of infection Erythema migrans (Lyme disease) Lyme disease documented in this encounter Care Teams Dial Painter Relationship Specialty Start Date End Date Kleber Ledesma, PCP - General Physician Behavioral Science Chair - 05/15/14 PA-C Medical documented as of this encounter
--- OUTSIDE RECORDS SUMMARY | 2022-01-05 11:38 | XMS_ITS | Encounter Summary ---
:1960 Author Organization [place] Address [address] [place] [address] Care Team Providers Name Role Phone Kleber Ledesma PA-C Primary Care Provider [phone] Reason for Visit Reason Onset Date Comments No Show 09/18/2014 Encounter Details Date Type Department Care Team Description 09/18/2014 Allied Health/Nurse Health [facility] No Show Visit [facility], [address] [place] [address] Social History Tobacco Use Types Packs/Day Years Used Date Smoking Tobacco: Former Smokeless Tobacco: Never Comments: quit smoking at 21 yrs old. sm oked 2 to 21/2 ppd Alcohol Use Standard Drinks/Week Comments Yes 2 (1 standard drink = 0.6 oz pure alcoho l) Sex Assigned at Date Recorded Not on file documented as of this encounter Progress Notes Gabrielle Garcia MA - 09/18/2014 4:45 PM CDT This patient was a no show for this scheduled appointment. documented in this encounter Plan of Treatment Not on filedocumented as of this encounter Visit Diagnoses Diagnosis NO SHOW - Primary documented in this encounter Care Teams Commercial Lender Relationship Specialty Start Date End Date Kleber Ledesma, PCP - General Physician Telecommunications Analyst - 05/15/14 RACNHA Medical documented as of this encounter
--- OUTSIDE RECORDS SUMMARY | 2022-01-05 11:38 | XMS_ITS | Encounter Summary ---
:1960 Author Organization [place] Address [address] [place] [address]. [place] [address] Care Team Providers Name Role Phone Kleber Ledesma PA-C Primary Care Provider [phone] Reason for Visit Reason Onset Date Comments Nurse Advice Line 10/30/2014 Still feeling ill Encounter Details Date Type Department Care Team Description 10/30/2014 Telephone [facility] Kleber Ledesma Nurse Advice Line [facility] [place] RACHNA Valderrama (Still feeling ill) [address] [place] [address] [place], [place] [phone] (Wo rk) [address] [phone] Social History Tobacco Use Types Packs/Day Years Used Date Smoking Tobacco: Former Smokeless Tobacco: Never Comments: quit smoking at 21 yrs old. sm oked 2 to 21/2 ppd Alcohol Use Standard Drinks/Week Comments Yes 2 (1 standard drink = 0.6 oz pure alcoho l) Sex Assigned at Date Recorded Not on file documented as of this encounter Miscellaneous Notes Telephone Encounter - Kleber Ledesma PA-C - 11/01/2014 10:01 AM CDT Labs normal. Spoke with Amie- headache, fatigue is bad. Drainage and ST. Will treat for sinusitis. Rx sent in. ajp Telephone Encounter - Deisy Elizabeth RN - 10/31/2014 2:38 PM CDT Going on 11 days. Patient states that she is exhausted, headaches, sore throat comes and goes. Something is not right. Would like to come in for lab work. Please place orders. Patient coming in at 3:30pm today for lab work. Note written. Given to Kleber to sign. Deisy Elizabeth RN Telephone Encounter - Kleber Ledesma PA-C - 10/31/2014 2:23 PM CDT We can do a note no problem. How about we try some magic mouthwash for her throat? Does she have anyadditional symptoms? I can order a CBC and mono test. Strep culture was negative. Please call. Kleber Pereyra Telephone Encounter - Eva Grubbs - 10/31/2014 12:53 PM CDT Amie has no improvement. Can she get lab work ordered? Rx? Does she need another appt? Will probally need a Dr note for employer. Please call her at [phone] Telephone Encounter - Lexy Mclaughlin RN - 10/30/2014 5:14 PM CDT Clinic Action Needed: Pls call pt Reason for Call: Pt calling to see if strep culture results were back, but they are still in process. States still feeling as ill as before. No fever. I've still got a sore throat and I'm so fatigued,I'm missing work, I can't even make it through the day. Pt wondering if she should go to urgent care, make appt, or if there are blood tests that could be ordered. Patient Recommendations/Teaching: Advised I would leave note for pcp. Routed to: Kleber Mclaughlin RN [facility] [facility] documented in this encounter Plan of Treatment Not on filedocumented as of this encounter Visit Diagnoses Diagnosis Throat pain - Primary documented in this encounter Care Teams Insurance Sales Agent Relationship Specialty Start Date End Date Kleber Ledesma, PCP - General Physician Back Gray Cloth Washer - 05/15/14 RACHNA Medical documented as of this encounter
--- OUTSIDE RECORDS SUMMARY | 2022-01-05 11:39 | XMS_ITS | Encounter Summary ---
:1960 Author Organization [place] Address [address] [place] [address] Care Team Providers Name Role Phone Tashi Paredes MD Primary Care Provider Encounter Details Date Type Department Care Team Description 05/10/2004 Orders Only [facility] Tashi Paredes MD DIAGNOSIS NOT YET Clinic [address] DEFINED (Primary Dx) [address] [place] [address] [phone] Social History Tobacco Use Types Packs/Day Years Used Date Smoking Tobacco: Never Alcohol Use Standard Drinks/Week Comments Yes 0 (1 standard drink = 0.6 oz pure alcoho l) very casual Sex Assigned at Date Recorded Not on file documented as of this encounter Plan of Treatment Not on filedocumented as of this encounter Procedures Procedure Name Priority Date/Time Associated Diagnosis Comme nts ABSTRACT LABCARE Routine 05/10/2004 DIAGNOSIS NOT YET REPORT DEFINED HCL POTASSIUM Routine 05/10/2004 DIAGNOSIS NOT YET Results f or this DEFINED procedure are i n the results section . HCL GLUCOSE Routine 05/10/2004 DIAGNOSIS NOT YET Results fo r this DEFINED procedure are i n the results section . HCL ALT Routine 05/10/2004 DIAGNOSIS NOT YET Results fo r this DEFINED procedure are i n the results section . HCL AST Routine 05/10/2004 DIAGNOSIS NOT YET Results fo r this DEFINED procedure are i n the results section . HCL CREATININE Routine 05/10/2004 DIAGNOSIS NOT YET Results for this DEFINED procedure are i n the results section . documented in this encounter Results ABSTRACT LABCARE REPORT (05/10/2004) Specimen (Source) Anatomical Location Collection Method / Collectio n Time Received Time / Laterality Volume 05/10/2004 Narrative This result has an attachment that is no t available. Tashi Paredes MD LABORATORY Performing Organization Address [facility] Phon e Number MISYS ALT [[id number]] (05/10/2004) P athologist Signature ALT 38@ U/L MISYS Tashi Paredes MD LABORATORY Performing Organization Address [facility] Phon e Number MISYS AST [[id number]] (05/10/2004) P athologist Signature AST 24@ U/L MISYS Tashi Paredes MD LABORATORY Performing Organization Address [facility] Phon e Number MISYS CREATININE [[id number]] (05/10/2004) P athologist Signature Creatinine 1.00@ mg/dL MISYS Tashi Paredes MD LABORATORY Performing Organization Address [facility] Phon e Number MISYS POTASSIUM [[id number]] (05/10/2004) P athologist Signature Potassium 3.9@ mmol/L MISYS Tashi Paredes MD LABORATORY Performing Organization Address [facility] Phon e Number MISYS GLUCOSE [[id number]] (05/10/2004) P athologist Signature Glucose 93@ mg/dL MISYS Tashi Paredes MD LABORATORY Performing Organization Address [facility] Phon e Number MISYS documented in this encounter Visit Diagnoses Diagnosis DIAGNOSIS NOT YET DEFINED - Primary documented in this encounter Care Teams College Coach Relationship Specialty Start Date End Date Tashi Paredes MD PCP - General 04/14/04 12/01/11 [address] [id number] documented as of this encounter
--- OUTSIDE RECORDS SUMMARY | 2022-01-05 11:39 | XMS_ITS | Encounter Summary ---
:1960 Author Organization [place] Address [address] [place] [address]. [place] [address] Care Team Providers Name Role Phone Kleber Ledesma PA-C Primary Care Provider [phone] Reason for Visit Reason Comments Establish Care Cough Fatigue Encounter Details Date Type Department Care Team Description 05/16/2014 Office Visit [facility] Kleber Ledesma Acute sinusitis with Clinic Thomas Valderrama PA-C symptoms > 10 days [address] [place] [address] [facility] (Primary Dx) [facility], [address] [place], [place] [address] [place] [address] (Wo rk) [address] [phone] Social History Tobacco Use Types Packs/Day Years Used Date Smoking Tobacco: Former Smokeless Tobacco: Never Alcohol Use Standard Drinks/Week Comments Yes 0 (1 standard drink = 0.6 oz pure alcoho l) very casual Sex Assigned at Date Recorded Not on file documented as of this encounter Last Filed Vital Signs Vital Sign Reading Time Taken Comments Blood Pressure 110/74 05/16/2014 4:12 PM CDT Pulse 64 05/16/2014 4:12 PM CDT Temperature 36.8 ??C (98.2 ??F) 05/16/2014 4:12 PM CDT Respiratory Rate 16 05/16/2014 4:12 PM CDT Oxygen Saturation - - Inhaled Oxygen Concentration - - Weight 60.6 kg (133 lb 8 oz) 05/16/2014 4:12 PM CDT Height 154.9 cm (5' 1) 05/16/2014 4:12 PM CDT Body Mass Index 25.22 05/16/2014 4:12 PM CDT documented in this encounter Progress Notes Kleber Ledesma PA-C - 05/16/2014 12:21 PM CDT HPI SUBJECTIVE: Amie Scott is a 54 year old female who presents to clinic today for the following health issues: New Patient/Transfer of Care Acute Illness Acute illness concerns?- COUGH, FATIGUE Onset: about a month ?? Fever: YES- at first, low grade ?? Chills/Sweats: YES ?? Headache (location?): YES ?? Sinus Pressure:YES- had ?? Conjunctivitis: YES- a little bit ?? Ear Pain: YES- did ?? Rhinorrhea: YES - had ?? Congestion: no ?? Sore Throat: no ?? Cough: [id number] ?? Wheeze: no ?? Decreased Appetite: no ?? Nausea: no ?? Vomiting: no ?? Diarrhea: no ?? Dysuria/Freq.: no ?? Fatigue/Achiness: YES ?? Sick/Strep Exposure: no Therapies Tried and outcome: Delsym, ibuprofen, tylenol Cough has continued, on and off, chest discomfort, right back side rib pain, and extreme fatigue. PROBLEMS TO ADD ON... Establishing care. Has hx of HTN and high cholesterol. Will be transferring records. Has been stable. Not in need of refills right now. Thinks up to date on labs. Also UTD on paps, mamm and colonoscopy. Will get records sent VITALIY. Problem list and histories reviewed & adjusted, as indicated. Additional history: as documented Problem list, Medication list, Allergies, and Medical/Social/Surgical histories reviewed in [facility] andupdated as appropriate. ROS: Constitutional, HEENT, cardiovascular, pulmonary, gi and gu systems are negative, except as otherwise noted. OBJECTIVE: BP 110/74 Pulse 64 Temp(Src) 98.2 ??F (36.8 ??C) (Oral) Resp 16 Ht 5' 1 (1.549 m) Wt 133 lb 8 oz (60.555 kg) BMI 25.24 kg/m2 LMP 02/22/2010 ? No Body mass index is 25.24 kg/(m^2). GENERAL: healthy, alert and no distress HENT: normal cephalic/atraumatic, ear canals and TM's normal, nose and mouth without ulcers or lesions, oropharynx clear, oral mucous membranes moist, sinuses: maxillary tenderness on both sides and post nasal drainage present NECK: no adenopathy, no asymmetry, masses, or [...] rashes PSYCH: mentation appears normal, affect normal/bright LYMPH: no cervical, supraclavicular, axillary, or inguinal adenopathy Diagnostic Test Results: none ASSESSMENT/PLAN: Problem List Items Addressed This Visit None Visit Diagnoses Acute sinusitis with symptoms > 10 days - Primary Relevant Medications Augmentin 875mg BID x10d (sinusitis) MEDICATIONS: - Augmentin for sinuses. Cough will follow with improvement. Supportive care discussed also. - Continue other medications without change. Call when refills needed. Will need records to review. FUTURE APPOINTMENTS: - see above. Will review when they arrive. Kleber Ledesma PA-C [facility] Physical Exam documented in this encounter Nursing Notes Gabrielle Garcia MA - 05/16/2014 4:31 PM CDT Chief Complaint Patient presents with ??? Establish Care ??? Cough ??? Fatigue Initial BP 110/74 Pulse 64 Temp(Src) 98.2 ??F (36.8 ??C) (Oral) Resp 16 Ht 5' 1 (1.549 m) Wt 133 lb 8 oz (60.555 kg) BMI 25.24 kg/m2 LMP 12/29/2004 ? No Estimated body mass index is 25.24 kg/(m^2) as calculated from the following: Height as of this encounter: 5' 1 (1.549 m). Weight as of this encounter: 133 lb 8 oz (60.555 kg). BP completed using cuff size: regular Gabrielle Garcia MA documented in this encounter Plan of Treatment Not on filedocumented as of this encounter Visit Diagnoses Diagnosis Acute sinusitis with symptoms > 10 days - Primary Acute sinusitis, unspecified documented in this encounter Care Teams Bottle Washing Machine Operator Relationship Specialty Start Date End Date Kleber Ledesma, PCP - General Physician Fashion Show Director - 05/15/14 RACHNA Medical documented as of this encounter
--- OUTSIDE RECORDS SUMMARY | 2022-01-05 11:39 | XMS_ITS | Encounter Summary ---
:1960 Author Organization [facility] Address [address] [place] [address] Care Team Providers Name Role Phone Tashi Paredes MD Primary Care Provider Encounter Details Date Type Department Care Team Description 05/10/2004 Results Only [facility] Marcus Chiang MD Hospital Results EMERGENCY [facility] [address] [facility] [address] [place], [place] [address] (Wo rk) Social History Tobacco Use Types Packs/Day Years Used Date Smoking Tobacco: Never Alcohol Use Standard Drinks/Week Comments Yes 0 (1 standard drink = 0.6 oz pure alcoho l) very casual Sex Assigned at Date Recorded Not on file documented as of this encounter Plan of Treatment Not on filedocumented as of this encounter Procedures Procedure Name Priority Date/Time Associated Diagnosis Comme [facility] CT THORAX W/O Routine 05/10/2004 12:29 PM Resu lts for this CONT BRUSH STAINER procedure are i n the results section. documented in this encounter Results CT SCAN CHEST (05/10/2004 12:29 PM BRUSH STAINER) Anatomical Region Laterality Modality Other Specimen (Source) Anatomical Collection Method Collection Time Re ceived Time Location / / Volume Laterality 05/10/2004 12:29 PM BRUSH STAINER Impressions 05/12/2004 8:[address] CHEST, ABDOMEN, AND PELVIS - 05/10/04 ?? INDICATION FOR EXAMINATION: ??Postoperat naman with dizziness and chest pain (gallbladder surgery on ). ?? PROCEDURE: ??Intravenous contrast admini stered with pulmonary embolus protocol utilized. ??Thereafter, IV cont rast-enhanced abdomen and pelvis obtained. ??Small amount of oral contrast also present. ?? Delayed scans are obtained through [employer] ys. ?? FINDINGS: ? CT CHEST: ??There is no evidence of pulm onary embolism. ??Small amount of subsegmental atelectasis posterior ba silar lung reyes, left greater than right. ??Very minimal symme tric apical interstitial scarring. ??Lungs are clear of consolida tive infiltrate. ??No hilar or mediastinal adenopathy is demonstrated. ? CT ABDOMEN AND PELVIS: ??Surgical clips from recent cholecystectomy. ?? Minimal free fluid in the cul-de-sac of the pelvis. ??Mild dilatation of small bowel loops and small amount of gas as well as stool in the colon. ??Findings most in keeping with m ild paralytic ileus. ? Liver, spleen, pancreas, adrenal glands, and kidneys appear normal. ?? No retroperitoneal adenopathy. ??No pelv ic masses are demonstrated. ?? CONCLUSION: ? 1. ?? No ?evidence of pulm onary embolism. ? 2. ?? Small ?amount of sub segmental atelectasis posterior basilar lung reyes. ? 3. ?? Status ?post cholecy stectomy. ? 4. ?? Small ?amount of alan e fluid in cul-de-sac and pelvis. ? 5. ?? Mild ?paralytic ileu s. ?? Marcus Chiang MD SPECIAL IMAGING STUDIES documented in this encounter Visit Diagnoses Not on filedocumented in this encounter Care Teams Accounts Receivable Bookkeeper Relationship Specialty Start Date End Date Tashi Paredes MD PCP - General 04/14/04 12/01/11 [address] [id number] documented as of this encounter
--- OUTSIDE RECORDS SUMMARY | 2022-01-05 11:39 | XMS_ITS | Encounter Summary ---
:1960 Author Organization [place] Address [address] [place] [address] Care Team Providers Name Role Phone Tashi Paredes MD Primary Care Provider Encounter Details Date Type Department Care Team Description 04/21/2006 Results Only Antonio Li MD EMERGENCY PHYSIC [facility] [address] [place], [place] [address] (Wo rk) Social History Tobacco Use Types Packs/Day Years Used Date Smoking Tobacco: Never Alcohol Use Standard Drinks/Week Comments Yes 0 (1 standard drink = 0.6 oz pure alcoho l) very casual Sex Assigned at Date Recorded Not on file documented as of this encounter Plan of Treatment Not on filedocumented as of this encounter Procedures Procedure Name Priority Date/Time Associated Diagnosis Comme [facility] ECHO HEART Routine 04/21/2006 7:11 AM Result s for this XTHORACIC, CDT procedure are i n STRESS/REST the results section. documented in this encounter Results ECHO HEART, FULL STRESS/REST (04/21/2006 7:11 AM CDT) [facility] Method Time Signature [facility] Interpretation Summary RESULTS This was a normal stress echocardiogram. PatientHeight: 62 in PatientWeight: 132 lbs SystolicPressure: 126 mmHg DiastolicPressure: 80 mmHg HeartRate: 85 bpm BSA 1.6 m^2 Baseline Normal baseline electrocardiogram. The patient is in normal sinus rhythm. Normal left ventricular wall motion. Stress This stress test was negative for inducible ischemia. This was a normal stress echocardiogram. The patient exhibited no chest pain during exercise. Exercise was stopped due to fatigue. Procedure Stress Echo Complete. Stress Results Protocol: ??Iván Protocol Target HR: 147 bpm ?Maximum Predicted HR: 1 73 bpm Stage ?Duration(mm:ss) ??HR(bpm) ?? BP ?DOSE ??Comment ? 03:00 ?131 ? 154/90 ? 03:00 ?162 ? 162/90 ? 03:00 ?166 ? 170/90 ?MAX BP 170/90 ? 00:01 ?166 ? / ? RECOVERY ? 05:56 ?100 ? 126/80 ?RPP 28,220 Stress Duration: 09:01 mm:ss ??Recovery Time: 05:56 mm:ss Maximum Stress HR: 166 bpm ?METS: 10 Interpreting Physician: ??Eugenio Charles MD electronicall y signed on 04-21-2006 09:04:43 Anatomical Region Laterality Modality Other Specimen (Source) Anatomical Collection Method Collection Time Re ceived Time Location / / Volume Laterality 04/21/2006 7:11 AM CDT Antonio Li MD SPECIAL IMAGING STUDIES documented in this encounter Visit Diagnoses Not on filedocumented in this encounter Care Teams Bilingual Sales Assistant Relationship Specialty Start Date End Date Tashi Paredes MD PCP - General 04/14/04 12/01/11 [address] [id number] documented as of this encounter
--- OUTSIDE RECORDS SUMMARY | 2022-01-05 11:39 | XMS_ITS | Encounter Summary ---
:1960 Author Organization [facility] Address [address] [place] [address]. [place] [address] Care Team Providers Name Role Phone Kleber Ledesma PA-C Primary Care Provider [phone] Reason for Referral CV Cardio consult - Closed Specialty Diagnoses / Procedures Referred By Contact Refer red To Contact Diagnoses HTN (hypertension) CARDIOVASCULAR SCREENING; LDL GOAL LESS THAN 130 Family history of ischemic heart disease Jose M Rees [facility] MD [address] [place] [address] [place] [address] [place] [address] Phone: [phone] Fax: Referral ID Status Reason Start Date Expiration Date Visits Requ ested Visits Authorized [id number] Closed 05/30/2014 11/26/2014 1 1 [facility] - Closed Specialty Diagnoses / Procedures Referred By Contact Refer red To Contact Diagnoses Cataract HTN (hypertension) Jose M Rees [facility] [address] [place] [address] [place] [address] Referral ID Status Reason Start Date Expiration Date Visits Requ ested Visits Authorized [id number] Closed 05/30/2014 11/26/2014 1 1 Diagnostic Procedure Outpatient - Closed Specialty Diagnoses / Procedures Referred By Contact Refer red To Contact Diagnoses Screen for colon cancer Jose M Rees [facility] [address] [place] [address] [place] [address] Phone: Fax: Referral ID Status Reason Start Date Expiration Date Visits Requ ested Visits Authorized [id number] Closed 05/30/2014 11/26/2014 1 1 Reason for Visit Reason Comments ER F/U needs referral to cardiologi [facility] Maintenance ACT and AAP due Recheck Medication patient wanting to discuss c hanging dose of gabapentin or switching med all together Encounter Details Date Type Department Care Team Description 05/30/2014 [facility] (Primary Dx[facility] Clinic Thomas Damon MD Visit for screening mammogram; [place] [address] [address] CARDIOVASCULAR SCREENING; LDL GOAL LESS THAN 130; [address], [address] [place], [place] Family history of ischemic h eart disease; [place] [address] Cataract; [id number] HTN (hypertension) Social History Tobacco Use Types Packs/Day Years Used Date Smoking Tobacco: Former Smokeless Tobacco: Never Alcohol Use Standard Drinks/Week Comments Yes 0 (1 standard drink = 0.6 oz pure alcoho l) very casual Sex Assigned at Date Recorded Not on file documented as of this encounter Last Filed Vital Signs Vital Sign Reading Time Taken Comments Blood Pressure 102/64 05/30/2014 10:35 AM CDT Pulse 64 05/30/2014 10:35 AM CDT Temperature 36.7 ??C (98.1 ??F) 05/30/2014 10:35 AM CDT Respiratory Rate - - Oxygen Saturation 98% 05/30/2014 10:35 AM CDT Inhaled Oxygen Concentration - - Weight 60.2 kg (132 lb 11.2 oz) 05/30/2014 10:35 AM CDT Height 156.2 cm (5' 1.5) 05/30/2014 10:35 AM CDT Body Mass Index 24.67 05/30/2014 10:35 AM CDT documented in this encounter Progress Notes Jose M Rees MD - 05/30/2014 8:18 AM CDT HPI SUBJECTIVE: Amie Scott is a 54 year old female who presents to clinic today for the following health issues: ED/UC Followup: Facility: [facility] Date of visit: 05/28/14 Reason for visit: chest pain Current Status: some lightheadedness, slight chest discomfort- wanting to see precision farming specialist Admited recently for observation and sequential troponins after several episodes of CP. Cards service at [facility] recommened cards f/u. Has brother with 4xCABG. Father first OR at 42, at 49. Anotherbrother's first OR at 36, d from CAD at 47. Third brother is vasculopath with AAA and replacement. Younger sister with OR. Only pt and one other sister with no known CAD to date. Previously seen at [facility]. Has not been great about preventative care. Uses gabapentin for post menopausal sx. Older sister w/breast cancer in late 50s, so is reluctant to use hormone replacement. Chest pain has resolved. No shortness of breath. Feeling a bit lightheadedess, some fatigue. No edema, orthopnea. No n/v, GODDARD, vision changes, mood concerns. Review of Systems Constitutional: Negative. HENT: Negative. Respiratory: Negative for shortness of breath. Cardiovascular: Negative for chest pain, palpitations, orthopnea and leg swelling. Gastrointestinal: Negative. Neurological: Positive for dizziness. Physical Exam Constitutional: She is oriented to person, place, and time and well-developed, well-nourished, and in no distress. Eyes: Conjunctivae and EOM are normal. Cardiovascular: Normal rate, regular rhythm and normal heart sounds. Pulmonary/Chest: Effort normal and breath sounds normal. Musculoskeletal: She exhibits no edema. Neurological: She is alert and oriented to person, place, and time. Skin: Skin is warm and dry. Vitals reviewed. (V76.51) Screen for colon cancer (primary encounter diagnosis) Comment: Plan: GASTROENTEROLOGY ADULT REFERRAL +/- PROCEDURE (V76.12) Visit for screening mammogram Comment: Plan: MA SCREENING DIGITAL BILAT - Future (s+30) (V81.2) CARDIOVASCULAR SCREENING; LDL GOAL LESS THAN 130 Comment: Plan: simvastatin (ZOCOR) 20 MG tablet, CARDIOLOGY EVAL ADULT REFERRAL (V17.3) Family history of ischemic heart disease Comment: Plan: CARDIOLOGY EVAL ADULT REFERRAL (366.9) Cataract Comment: Plan: OPHTHALMOLOGY ADULT REFERRAL (401.9) HTN (hypertension) Comment: Plan: atenolol-chlorthalidone (TENORETIC) 50-25 MG per tablet, OPHTHALMOLOGY ADULT REFERRAL, CARDIOLOGY EVAL ADULT REFERRAL RTC in Jose M Rees MD documented in this encounter Nursing Notes Patricia Segura CMA - 05/30/2014 10:37 AM CDT Chief Complaint Patient presents with ??? ER F/U needs referral to precision farming specialist ??? Health Maintenance ACT and AAP due ??? Recheck Medication patient wanting to discuss changing dose of gabapentin or switching med all together Initial BP 102/64 Pulse 64 Temp(Src) 98.1 ??F (36.7 ??C) (Oral) Ht 5' 1.5 (1.562 m) Wt 132 lb 11.2 oz (60.192 kg) BMI 24.67 kg/m2 SpO2 98% LMP 02/22/2010 Estimated body mass index is 24.67 kg/(m^2) as calculated from the following: Height as of this encounter: 5' 1.5 (1.562 m). Weight as of this encounter: 132 lb 11.2 oz (60.192 kg). BP completed using cuff size: paulette Segura CMA documented in this encounter Plan of Treatment Scheduled Referrals Name Type Priority Associated Diagnoses Order S chedule GASTROENTEROLOGY ADULT Referral Routine Screen for colon O rdered: 05/30/2014 REFERRAL +/- PROCEDURE cancer OPHTHALMOLOGY ADULT Referral Routine Cataract Ordered: 05/30/2014 REFERRAL HTN (hypertension) CARDIOLOGY EVAL ADULT Referral Routine HTN (hyper tension) Ordered: 05/30/2014 REFERRAL CARDIOVASCULAR SCREENING; LDL GOAL LESS THAN 130 Family history of ischemic heart disease documented as of this encounter Results MA SCREENING DIGITAL BILAT - Future (s+30) (09/10/2014 11:04 AM CDT) Anatomical Region Laterality Modality Breast Bilateral Mammography Specimen (Source) Anatomical Location Collection Method / Collectio n Time Received Time / Laterality Volume Impressions 09/10/2014 11:06 AM CDT IMPRESSION: BI-RADS CATEGORY: 1 - ??NEGATIVE. RECOMMENDED FOLLOW-UP: Annual Mammograph y. EDWIN TRENT MD Narrative 09/10/2014 11:06 AM CDT MA SCREENING DIGITAL BILATERAL 09/10/2014 11:04 AM HISTORY: ??Screening. ??No new breast co mplaints. COMPARISON: ??12/07/2011, 05/19/2007 TECHNIQUE: ??Digital mammography with CA D is performed. BREAST DENSITY: Heterogeneously dense. COMMENTS: No findings of suspicion for m alignancy. Procedure Note Edwin Trent MD - 09/10/2014For matting of this note might be different from the original. MA SCREENING DIGITAL BILATERAL 09/10/2014 11:04 AM HISTORY: Screening. No new breast compla ints. COMPARISON: 12/07/2011, 05/19/2007 TECHNIQUE: Digital mammography with CAD is performed. BREAST DENSITY: Heterogeneously dense. COMMENTS: No findings of suspicion for m alignancy. IMPRESSION IMPRESSION: BI-RADS CATEGORY: 1 - NEGATI VE. RECOMMENDED FOLLOW-UP: Annual Mammograph y. EDWIN TRENT MD Jose M Rees MD IMG MAMMOGRAPHY ORDERABLES documented in this encounter Visit Diagnoses Diagnosis Screen for colon cancer - Primary Special screening for malignant neoplasm s, colon Visit for screening mammogram Other screening mammogram CARDIOVASCULAR SCREENING; LDL GOAL LESS THAN 130 Family history of ischemic heart disease Cataract Unspecified cataract HTN (hypertension) Unspecified essential hypertension Visit for screening mammogram Other screening mammogram documented in this encounter Care Teams Service Engine Repairer Relationship Specialty Start Date End Date Kleber Ledesma, PCP - General Physician Carpenter Packing - 05/15/14 PA-C Medical documented as of this encounter
--- OUTSIDE RECORDS SUMMARY | 2022-01-05 11:39 | XMS_ITS | Encounter Summary ---
:1960 Author Organization [facility] Address [address] [place] [address] Care Team Providers Name Role Phone Tashi Paredes MD Primary Care Provider Encounter Details Date Type Department Care Team Description 04/20/2006 Historic Results INTERFACED REPORT Interface, David heath MD Social History Tobacco Use Types Packs/Day Years Used Date Smoking Tobacco: Never Alcohol Use Standard Drinks/Week Comments Yes 0 (1 standard drink = 0.6 oz pure alcoho l) very casual Sex Assigned at Date Recorded Not on file documented as of this encounter Plan of Treatment Not on filedocumented as of this encounter Procedures Procedure Name Priority Date/Time Associated Diagnosis Comme nts EKG 12 LEAD Routine 04/20/2006 5:31 PM Results f or this CDT procedure are i n the results section . documented in this encounter Results EKG 12 LEAD (04/20/2006 5:31 PM CDT) Component Value Ref Range Test Analysis Performed Pathologis t Method Time At Signature Ventricular Rate 73 BPM RADIOLOGY RESULTS Atrial Rate 73 BPM RADIOLOGY RESULTS MS Interval 148 ms RADIOLOGY RESULTS QRS Duration 84 ms RADIOLOGY RESULTS QT 390 ms RADIOLOGY RESULTS QTc 429 ms RADIOLOGY RESULTS P [place] 80 degrees RADIOLOGY RESULTS R AXIS 70 degrees RADIOLOGY RESULTS T [place] 69 degrees RADIOLOGY RESULTS Interpretation Sinus rhythm with sinus arrhythmia RADIOLOGY ECG Normal ECG RESULTS Unconfirmed report - interpretation of this ECG is compute r generated - see medical record for final interpretation Specimen Anatomical Collection Method Collection Time Receive d Time (Source) Location / / Volume Laterality 04/20/2006 5:31 PM 7 CDT 11:45 AM CDT Transcripton Interface ECG ORDERABLES Performing Organization Address City/State/ZIP Code Phon e Number RADIOLOGY RESULTS documented in this encounter Visit Diagnoses Not on filedocumented in this encounter Care Teams Coffee Roaster Relationship Specialty Start Date End Date Tashi Paredes MD PCP - General 04/14/04 12/01/11 [address] [id number] documented as of this encounter
--- OUTSIDE RECORDS SUMMARY | 2022-01-05 11:39 | XMS_ITS | Encounter Summary ---
:1960 Author Organization [facility] Address [address] [place] [address] Care Team Providers Name Role Phone Tashi Paredes MD Primary Care Provider Reason for Visit Reason Onset Date Comments Refill Request 01/23/2005 advair Encounter Details Date Type Department Care Team Description 01/23/2005 Refill [facility] Tashi Paredes MD Refill Request (advair) Clinic [address] [address] [phone] Social History Tobacco Use Types Packs/Day Years Used Date Smoking Tobacco: Never Alcohol Use Standard Drinks/Week Comments Yes 0 (1 standard drink = 0.6 oz pure alcoho l) very casual Sex Assigned at Date Recorded Not on file documented as of this encounter Miscellaneous Notes Telephone Encounter - Rossi Mcdonald - 01/23/2005 3:30 PM CST last ov 01/03/05 last filled 12/18/04 Approved DENICE/Rossi Mcdonald RN IGN EXCHANGE CLERK documented in this encounter Plan of Treatment Not on filedocumented as of this encounter Visit Diagnoses Diagnosis Mild intermittent asthma with exacerbati on Unspecified asthma, with exacerbation documented in this encounter Care Teams Information Services Vice President Relationship Specialty Start Date End Date Tashi Paredes MD PCP - General 04/14/04 12/01/11 [address] [id number] documented as of this encounter
--- OUTSIDE RECORDS SUMMARY | 2022-01-05 11:39 | XMS_ITS | Encounter Summary ---
:1960 Author Organization [facility] Address [address] [place] [address] Care Team Providers Name Role Phone Kleber Ledesma PA-C Primary Care Provider Reason for Visit Reason Onset Date Comments Previsit 06/05/2014 OV w/ Dr. Mercer 05/11 Encounter Details Date Type Department Care Team Description 06/05/2014 PRE VISIT [facility] Jose Ramon Mercer MD Previsit (OV w/ [facility] AND [place] 06/07/14) [address] [facility] [address] [place] [address] [place], [place] [address] Social History Tobacco Use Types Packs/Day [...] on filedocumented in this encounter Care Teams Administrative Appeals Tribunal Member Relationship Specialty Start Date End Date Kleber Ledesma, PCP - General Physician Negative Restorer - 05/15/14 [facility] Medical documented as of this encounter
--- OUTSIDE RECORDS SUMMARY | 2022-01-05 11:39 | XMS_ITS | Encounter Summary ---
:1960 Author Organization [place] Address [address] [place] [address] Care Team Providers Name Role Phone Tashi Paredes MD Primary Care Provider Reason for Referral - Closed Specialty Diagnoses / Procedures Referred By Contact Refer red To Contact Diagnoses Mild persistent asthma with exacerbation Tashi Paredes MD [address] [place] [address] Referral ID Status Reason Start Date Expiration Date Visits Requ ested Visits Authorized [id number] Closed 01/03/2005 02/07/2011 1 1 PING WEIGHER Reason for Visit Reason Comments Asthma Encounter Details Date Type Department Care Team Description 01/03/2005 Office Visit [facility] Tashi Paredes MD ASTHMA - [facility] [place] [address] PERSISTENT WITH [address] [facility] EXACERBATION ([place], [place]) [phone] [id number] Social History Tobacco Use Types Packs/Day Years Used Date Smoking Tobacco: Never Alcohol Use Standard Drinks/Week Comments Yes 0 (1 standard drink = 0.6 oz pure alcoho l) very casual Sex Assigned at Date Recorded Not on file documented as of this encounter Last Filed Vital Signs Vital Sign Reading Time Taken Comments Blood Pressure 96/68 01/03/2005 8:45 AM SHIPPING WEIGHER Pulse 76 01/03/2005 8:45 AM SHIPPING WEIGHER Temperature 36.8 ??C (98.3 ??F) 01/03/2005 8:45 AM SHIPPING WEIGHER Respiratory Rate 16 01/03/2005 8:45 AM SHIPPING WEIGHER Oxygen Saturation 97% 01/03/2005 8:45 AM SHIPPING WEIGHER Inhaled Oxygen Concentration - - Weight 69.6 kg (153 lb 8 oz) 01/03/2005 8:45 AM SHIPPING WEIGHER Height - - Body Mass Index 28.08 05/05/2004 3:30 PM SHIPPING WEIGHER documented in this encounter Progress Notes Tashi Paredes - 01/03/2005 9:17 AM CST SUBJECTIVE: Amie Scott 44 year old female presents for persistent quhb-kbb-rndqnnv asthma. She has been on abx therapy and two course of oral steroids in the last 2-3 weeks. She still notes trigger with cold air despite use of albuterol before exposure and adrien 3 weeks of initiating advair contro ller therapy. She currently uses her albuterol up to twice a day, fearing she does not want to use asteroid excessively. histories Udpated through 01-03-2005: Previous Medical History: ASTHMA - MODERATE PERSISTENT 2004 Comment: cold air trigger Review of patient's past surgical history indicates: NONSPECIFIC PROCEDURE Comment: laparoscopy by [facility] No family history on file Obstetric History The patient has not been asked about . Social History Marital Status: Spouse Name: N/A Years of Education: N/A Number of Children: N/A Occupational History None on file Social History Main Topics Tobacco Use: Never Alcohol Use: Yes Comment: very casual Drug Use: Not on file Sexually Active: Not on file Other Topics Concern Social History Narrative None on file Current outpatient prescriptions: MEDROL (AUSTEN) 4 MG OR TABS take as directed VICODIN 5-500 MG OR TABS 1-2 q 6 hr ROBITUSSIN A-C 10-100 MG/5ML OR SYRP 2 TSPS PO Q4-6 HR PRN COUGH ALBUTEROL 90 MCG/ACT IN AERS 1-2 puffs Q 4-6 hrs prn ALBUTEROL 90 MCG/ACT IN AERS 1-2 puffs Q 4-6 hrs prn ALBUTEROL SULFATE 0.083 % IN NEBU 1 ADVAIR DISKUS 500-50 MCG/DOSE IN MISC 1 puff BID NO ACTIVE MEDICATIONS . Allergies As of Date: 01/03/2005 Noted Reaction NO KNOWN DRUG ALLERGIES 04/14/2004 Date Reviewed: 01/03/2005 ROS: RESP:POSITIVE for Hx asthma, wheezing with cold air exposure C: NEGATIVE for fever, chills, change in weight,I: NEGATIVE for worrisome rashes, moles or lesions,E/M: NEGATIVE for ear, mouth and throat problems,CV: NEGATIVE for chest pain, palpitations or peripheral edema,GI: NEGATIVE for nausea, abdominal pain, heartburn, or change in bowel habits,: NEGATIVE for frequency, dysuria, or hematuria OBJECTIVE/EXAM: GENERAL APPEARANCE: healthy, alert and no distress HENT: ear canals and TM's normal and nose and mouth without ulcers or lesions NECK: no adenopathy, no asymmetry, masses, or scars and thyroid normal to palpation RESP: lungs clear to auscultation - no rales, rhonchi or wheezes CV: regular rates and rhythm, normal S1 S2, no S3 or S4 and no murmur, click or rub NEURO: Normal strength and tone, , mentation intact and speech normal ASSESSMENT/PLAN: 1- Mild persistent asthma with exacerbation. Misunderstanding about albuterol (as a steroid) clarified. Pt told to remain compliant with advair. After d/w pt regarding risks and benefits as well as possible side effects, drug interactions and adverse reactions, pt accepts prescription for Singulair per HS orders. Pt also accepts refeerral to Pulmonary for f/u in 2-4 weeks. Pt told to minimize cold air trigger by consistent use of a scarf outdoors; taking two puffs of albuterol before exposure; and improving home humidification especially at night. PING WEIGHER documented in this encounter Nursing Notes 01/03/2005 8:45 AM CST >> MONTY VALDEZ 01/03/2005 8:56 am Patient presents with: Asthma Initial BP 96/68 Pulse 76 Temp (Src) 98.3 (Oral) Resp 16 Wt 153 lbs 8.0 oz (69.6kg) SaO2 97% LMP 12/29/2004 Estimated Body Mass Index is 28.07 kg/(m^2) as calculated from: Height of 5' 2 (1.575m) as of 05/05/04 Weight of 153 lbs 8.0 oz (69.627 kg) as of this encounter. BP completed using cuff size large Monty Valdez LPN documented in this encounter Plan of Treatment Not on filedocumented as of this encounter Visit Diagnoses Diagnosis Mild persistent asthma with exacerbation - Primary Unspecified asthma, with exacerbation documented in this encounter Care Teams Records Section Supervisor Relationship Specialty Start Date End Date Tashi Paredes MD PCP - General 04/14/04 12/01/11 [address] [id number] documented as of this encounter
--- OUTSIDE RECORDS SUMMARY | 2022-01-05 11:39 | XMS_ITS | Encounter Summary ---
:1960 Author Organization [facility] Address [address] [place] [address] Care Team Providers Name Role Phone Tashi Paredes MD Primary Care Provider Encounter Details Date Type Department Care Team Description 04/20/2006 Emergency room Sina Cardoso MD [facility] [address] [place], [place] [id number] (Wo rk) Social History Tobacco Use Types Packs/Day Years Used Date Smoking Tobacco: Never Alcohol Use Standard Drinks/Week Comments Yes 0 (1 standard drink = 0.6 oz pure alcoho l) very casual Sex Assigned at Date Recorded Not on file documented as of this encounter Progress Notes Sina Cardoso - 04/26/2006 12:15 AM CDT FINAL CHEST PAIN EVALUATION UNIT DISCHARGE SUMMARY CHIEF COMPLAINT: Chest discomfort. HISTORY OF PRESENT ILLNESS: The patient is a 46-year-old female who states yesterday she had mid chest pain for about one day, radiating into her back and some mild lightheadedness also some radiationto her left shoulder and left neck. I started initially on examination, initial studies were negative including chest x-ray, troponin and EKG. Her symptoms did respond to nitroglycerin and a small amount of morphine. She did not have an obvious cause of her chest pain therefore I admitted to CPEU for further evaluation. She did well throughout the night, denies any complaints. Her serial EKGs and troponins were within normal limits. Therefore, she went for stress echocardiogram today. PHYSICAL EXAMINATION: VITAL SIGNS: Stable. HEENT: Normal. NECK: Supple, no lymphadenopathy. LUNGS: Clear. No rales, rhonchi, or wheeze noted. HEART: Regular rate and rhythm. ABDOMEN: Soft, nondistended, nontender. EXTREMITIES: No joint effusions or swelling, no calf tenderness. NEUROLOGIC: Normal. CHEST PAIN EVALUATION UNIT COURSE: A stress echocardiogram was completed. She did well with only mild discomfort in her chest with no signs of any ischemic change or EKG changes on the stress echocardiogram, it was a normal study. I discussed with her that she needs to return emergency department if she has severe pain in her chest or severe shortness of breath and she is to return immediately, otherwise I am going to treat her as if she has some esophagitis and give her Prilosec home to take the next 2 weeks. She is to follow up with primary care physician in 2-3 days for reevaluation. If she hasany worsening symptoms return to emergency department. Otherwise, the patient discharged in stable condition. DIAGNOSIS: Noncardiac chest pain. Electronically signed on 04/26/2006 00:14 by SINA CARDOSO MD MT: [id number] Name: MICAH SCOTT MRN: [id number] Account: [id number] : 1960 Visit Date: 04/20/2006 Document: [id number] Sina Cardoso - 04/26/2006 12:14 AM CDT FINAL CHIEF COMPLAINT: Chest pain. HISTORY OF PRESENT ILLNESS: The patient is a 46-year-old female who says she has had chest pain forabout one day now; she said she had some mid-chest pain radiating up to her jaw and her left shoulder for some time this morning. That had since resolved, but she continued to have the substernal pressure or discomfort in her chest, about 3/10 pain. She said she also feels like she gets occasional radiation into her back, with a band across the back or between her shoulder blades, causing pain. Thereis no ripping or tearing sensation; it is more just a discomfort. She does not have any significant injury that she knows of; she has not been lifting anything heavy. She says she did not have any signi ficant exertional shortness of breath or chest pain recently. She has not had any significant refluxdisease or heartburn symptoms. She was seen originally in Urgent Care; they recommended she get further evaluation here. They did an EKG which showed no abnormalities at that time. The patient comes infor evaluation. PAST MEDICAL HISTORY: Negative. FAMILY HISTORY: Positive for father who age 49 of suspected coronary artery disease. SOCIAL HISTORY: She does not smoke; she does not use any drugs, she only drinks alcohol on occasion. PAST SURGICAL HISTORY: Include gallbladder surgery and laparoscopy x 2. MEDICATIONS: None. ALLERGIES: No known drug allergies. REVIEW OF SYSTEMS: All other systems are negative except as stated above. PHYSICAL EXAMINATION: VITAL SIGNS: Blood pressure 151/81, pulse 80, respirations 16, temperature 97.4, O2 sat 99% on roomair. HEENT: Head is atraumatic, normocephalic. TMs are normal. Pupils equal, round, react to light. Oral mucosa is moist. No obvious oral lesions noted. NECK: Supple, no lymphadenopathy, no JVD noted. No palpation of pain. LUNGS: Clear to auscultation. No rales, rhonchi or wheezes noted. HEART: Regular rate and rhythm, no abnormal heart tones, no murmurs. ABDOMEN: Soft, nondistended, nontender. Good bowel sounds in all 4 quadrants. EXTREMITIES: Normal, no joint effusions or swelling. She has good distal pulses in all 4 extremities. She has no calf tenderness. SKIN: Warm and dry. No rash noted. NEUROLOGIC: Normal. 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 She was given aspirin initially and EKG was obtained. This showed a normal sinus rhythm at a rate of 77. There was no acute ST segment elevation or depression. She had normal PRS, QR and QT intervals. Chest x-ray PA and lateral did not show any signs of acute abnormalities, no infiltrate or effusions, had a normal mediastinum. No signs of aortic dissection or enlarged heart size or pneumothorax. Labs including a CBC, BNP, D-dimer and troponin were all within normal limits. HOSPITAL COURSE: The patient did get 2 sublingual nitroglycerin and initially the first sublingual improved her symptoms in her chest; she had a little bit of back discomfort, but it also gave her a headache so she did not want a second nitro. Her pain started to return and was just mild. I gave her another, second nitroglycerin and 1 mg of morphine IV. This improved her symptoms again and patient felt much more comfortable, therefore I thought she should be evaluated in the CPEU for serial enzymesand EKGs, and stress echocardiogram in the morning if normal EKGs and troponins decisively. The patient agrees to this plan. She is admitted to CPEU in good and stable condition. DIAGNOSIS: Chest pain. Electronically signed on 04/26/2006 00:13 by SINA CARDOSO MD MT: [id number] Name: MICAH SCOTT MRN: [id number] Account: [id number] : 1960 Visit Date: 04/20/2006 Document: [id number] documented in this encounter Plan of Treatment Not on filedocumented as of this encounter Visit Diagnoses Not on filedocumented in this encounter Care Teams Air Quality Specialist Relationship Specialty Start Date End Date Tashi Paredes MD PCP - General 04/14/04 12/01/11 [address] [id number] documented as of this encounter
--- OUTSIDE RECORDS SUMMARY | 2022-01-05 11:39 | XMS_ITS | Encounter Summary ---
:1960 Author Organization [facility] Address [address] [place] [address] Care Team Providers Name Role Phone Yaima William MD Primary Care Provider Reason for Visit (Routine) - Closed Specialty Diagnoses / Procedures Referred By Contact Refer red To Contact Radiology Diagnoses SCREENING BILATERAL-DIGITAL Procedure Notes: MASSIMO PT ANNUAL EXAM Sh Breast Imaging Procedures RADIOLOGY [address] [facility], [address] [place] [address] Phone: Referral ID Status Reason Start Date Expiration Date Visits Requ ested Visits Authorized [id number] Closed 12/01/2011 11/30/2012 1 1 Encounter Details Date Type Department Care Team Description 12/07/2011 Hospital Encounter [facility] Mushtaq Rubi [facility] Breast Boogie Michelle MD [address] [facility] [address] [place] [address] [address] [phone] [place] [address] (Wo rk) Social History Tobacco Use Types Packs/Day Years Used Date Smoking Tobacco: Never Alcohol Use Standard Drinks/Week Comments Yes 0 (1 standard drink = 0.6 oz pure alcoho l) very casual Sex Assigned at Date Recorded Not on file documented as of this encounter Medications at Time of Discharge Medication Sig Dispensed Refills Start Date End Date ADVAIR DISKUS 500-50 1 puff BID 1 month 0 01/23/2005 04/0 09/2014 MCG/DOSE IN MISCIndications: Mild intermittent asthma with exacerbation ALBUTEROL SULFATE 0.083 % IN 1 1 0 2 005 05/16/2014 NEBUIndications: Moderate persistent asthma MEDROL (AUSTEN) 4 MG OR take as directed 1 0 5 05/16/2014 TABSIndications: Painful respiration NO ACTIVE . 0 05/16/2014 MEDICATIONSIndications: Abdominal pain, right upper quadrant VICODIN 5-500 MG OR 1-2 q 6 hr 32 0 12/25/200405/16 TABSIndications: Painful respiration documented as of this encounter Plan of Treatment Not on filedocumented as of this encounter Procedures Procedure Name Priority Date/Time Associated Diagnosis Comme nts MA SCREENING Routine 12/07/2011 9:21 AM Results f or this DIGITAL BILATERAL CDT procedure are in the results section. documented in this encounter Results Mammo Screening digital (bilat) (12/07/2011 9:21 AM CDT) Anatomical Region Laterality Modality Breast Bilateral Other Specimen (Source) Anatomical Collection Method Collection Time Re ceived Time Location / / Volume Laterality 12/07/2011 9:21 AM CDT Impressions 12/10/2011 1:50 PM CDT SCREENING MAMMOGRAM, BILATERAL, DIGITAL w/CAD - 12/07/2011 9:21 AM BREAST SYMPTOMS: No current breast compl aints. COMPARISON: ??[facility] 11/20/2010, 05/19/2007 PARENCHYMAL PATTERN: Heterogeneously den se, limiting mammographic sensitivity. COMMENTS: No findings of suspicion for m alignancy. IMPRESSION: BIRADS 1, NEGATIVE. RECOMMENDATION: Recommend annual screeni ng mammography. Exam results letter mailed to patient. Mushtaq Rubi MD IMG MAMMOGRAPHY ORDERABLES documented in this encounter Visit Diagnoses Not on filedocumented in this encounter Care Teams Chief Cloth Finishing Range Operator Relationship Specialty Start Date End Date Yaima William MD PCP - General 12/02/11 05/14/14 documented as of this encounter
--- OUTSIDE RECORDS SUMMARY | 2022-01-05 11:39 | XMS_ITS | Encounter Summary ---
:1960 Author Organization [facility] Address [address] [place] [address] Care Team Providers Name Role Phone Tashi [...] Comme nts EKG 12 LEAD Routine 04/20/2006 12:04 PM Results for this CDT procedure are i n the results section . documented in this encounter Results EKG 12 LEAD (04/20/2006 12:04 PM CDT) Component Value Ref Range Test Analysis Performed Pathologis t Method Time At Signature Ventricular Rate 77 BPM RADIOLOGY RESULTS Atrial Rate 77 BPM RADIOLOGY RESULTS ME Interval 146 ms RADIOLOGY RESULTS QRS Duration 88 ms RADIOLOGY RESULTS QT 362 ms RADIOLOGY RESULTS QTc 409 ms RADIOLOGY RESULTS P [place] -15 degrees RADIOLOGY RESULTS R AXIS -10 degrees RADIOLOGY RESULTS T [place] 2 degrees RADIOLOGY RESULTS Interpretation AGE AND GENDER SPECIFIC ECG ANALYSIS RADIOLOGY ECG Sinus rhythm with sinus arrhythmia RESULTS Inferior infarct , age undetermined Abnormal ECG Unconfirmed report - interpretation of this ECG is compute r generated - see medical record for final interpretation Specimen Anatomical Collection Method Collection Time Receive d Time (Source) Location / / Volume Laterality 04/20/2006 12:04 04/21/2006 8:02 PM CDT AM CDT Transcripton Interface ECG ORDERABLES Performing Organization Address City/State/ZIP Code Phon e Number RADIOLOGY RESULTS documented in this encounter Visit Diagnoses Not on filedocumented in this encounter Care Teams Metal Baler Relationship Specialty Start Date End Date Tashi Paredes MD PCP - General 04/14/04 12/01/11 [address] [id number] documented as of this encounter
--- OUTSIDE RECORDS SUMMARY | 2022-01-05 11:39 | XMS_ITS | Encounter Summary ---
:1960 Author Organization [facility] Address [address] [place] [address] Care Team Providers Name Role Phone Tashi Paredes MD Primary Care Provider Encounter Details Date Type Department Care Team Description 04/20/2006 Historic Results INTERFACED REPORT Mis Li cas, MD [facility]Y PHYSIC [facility] [address] [place] [address] (Wo rk) Social History Tobacco Use Types Packs/Day Years Used Date Smoking Tobacco: Never Alcohol Use Standard Drinks/Week Comments Yes 0 (1 standard drink = 0.6 oz pure alcoho l) very casual Sex Assigned at Date Recorded Not on file documented as of this encounter Plan of Treatment Not on filedocumented as of this encounter Procedures Procedure Name Priority Date/Time Associated Comments Diagnosis TROPONIN I Timed 04/20/2006 8:50 PM Results f or this CDT procedure are i n the results section. TROPONIN I Timed 04/20/2006 5:20 PM Results f or this CDT procedure are i n the results section. TROPONIN I Routine 04/20/2006 1:12 PM Results f or this CDT procedure are i n the results section. MYOGLOBIN Routine 04/20/2006 1:12 PM Results f or this CDT procedure are i n the results section. BASIC METABOLIC PANEL Routine 04/20/2006 1:12 PM Results for this CDT procedure are i n the results section. D DIMER QUANTITATIVE Routine 04/20/2006 12:40 Res ults for this PM CDT procedure are i n the results section. HEMOGRAM AND PLATELET STAT 04/20/2006 12:25 Re sults for this PM CDT procedure are i n the results section. documented in this encounter Results Troponin I (04/20/2006 8:50 PM CDT) athologist Signature Troponin I <0.04 0.00 - 0.40 MISYS ug/L Specimen Anatomical Collection Method Collection Time Receive d Time (Source) Location / / Volume Laterality 04/20/2006 8:50 PM 7 9:15 CDT PM CDT Antonio Li MD LAB - BLOOD ORDERABLES Performing Organization Address City/[facility] Code Phon e Number MISYS Troponin I (04/20/2006 5:20 PM CDT) athologist Signature Troponin I <0.04 0.00 - 0.40 MISYS ug/L Specimen Anatomical Collection Method Collection Time Receive d Time (Source) Location / / Volume Laterality 04/20/2006 5:20 PM 7 5:15 CDT PM CDT Antonio Li MD LAB - BLOOD ORDERABLES Performing Organization Address City/[facility] Code Phon e Number MISYS Basic metabolic panel (04/20/2006 1:12 PM CDT) athologist Signature Sodium 141 133 - 144 MISYS mmol/L Potassium 4.0 3.4 - 5.3 MISYS mmol/L Chloride 106 94 - 109 MISYS mmol/L Carbon Dioxide 26 20 - 32 MISYS mmol/L Glucose 86 60 - 110 MISYS mg/dL Urea Nitrogen 8 5 - 24 MISYS mg/dL Creatinine 0.84 0.60 - MISYS 1.30 mg/dL GFR Estimate 77 >60 MISYS mL/min/1.7 m2 GFR Estimate If >90 >60 MISYS Black mL/min/1.7 m2 Calcium 9.0 8.5 - 10.4 MISYS mg/dL Anion Gap 10 6 - 17 MISYS mmol/L Specimen Anatomical Collection Method Collection Time Receive d Time (Source) Location / / Volume Laterality 04/20/2006 1:12 PM 7 1:24 CDT PM CDT Ranjit Figueroa LAB - BLOOD ORDERABLES Performing Organization Address City/State/ZIP Code Phon e Number MISYS Myoglobin (04/20/2006 1:12 PM CDT) P athologist Signature Myoglobin 32 <120 ug/L MISYS Specimen Anatomical Collection Method Collection Time Receive d Time (Source) Location / / Volume Laterality 04/20/2006 1:12 PM 7 1:24 CDT PM CDT Ranjit Figueroa LAB - BLOOD ORDERABLES Performing Organization Address City/[facility] Code Phon e Number MISYS Troponin I (04/20/2006 1:12 PM CDT) athologist Signature Troponin I <0.04 0.00 - 0.40 MISYS ug/L Specimen Anatomical Collection Method Collection Time Receive d Time (Source) Location / / Volume Laterality 04/20/2006 1:12 PM 7 1:24 CDT PM CDT Ranjit Figueroa LAB - BLOOD ORDERABLES Performing Organization Address [facility] Code Phon e Number MISYS D dimer quantitative (04/20/2006 12:40 PM CDT) P athologist Signature D Dimer <0.2 0.0 - 0.50 MISYS ug/ml FEU Comment: Reviewed, acceptable Specimen Anatomical Collection Method Collection Time Receive d Time (Source) Location / / Volume Laterality 04/20/2006 12:40 04/20/2006 PM CDT 12:41 PM CDT Ranjit Figueroa LAB - BLOOD ORDERABLES Performing Organization Address City/[facility] Code Phon e Number MISYS (ABNORMAL) Hemogram and platelet (04/20/2006 12:25 PM CDT) Analysis Performed At Patho logist Time Signature MCV 81 78 - 100 MISYS fl MCH 25.8 (L) 26.5 - MISYS 33.0 pg MCHC 31.9 31.5 - MISYS 36.5 g/dL RDW 14.2 10.0 - MISYS 15.0 % RBC Count 4.72 3.8 - 5.2 MISYS 10e12/L WBC 9.0 4.0 - 11.0 MISYS 10e9/L Hemoglobin 12.2 11.7 - MISYS 15.7 g/dL Hematocrit 38.2 35.0 - MISYS 47.0 % Platelet Count 374 150 - 450 MISYS 10e9/L Specimen Anatomical Collection Method Collection Time Receive d Time (Source) Location / / Volume Laterality 04/20/2006 12:25 04/20/2006 PM CDT 12:09 PM CDT Antonio Li MD LAB - BLOOD ORDERABLES Performing Organization Address City/State/ZIP Code Phon e Number MISYS documented in this encounter Visit Diagnoses Not on filedocumented in this encounter Care Teams Enforcement Safety Officer Relationship Specialty Start Date End Date Tashi Paredes MD PCP - General 04/14/04 12/01/11 [address] [id number] documented as of this encounter
--- OUTSIDE RECORDS SUMMARY | 2022-01-05 11:39 | XMS_ITS | Encounter Summary ---
:1960 Author Organization [place] Address [address] [place] [address]. [place] [address] Care Team Providers Name Role Phone Kleber Ledesma PA-C Primary Care Provider [phone] Reason for Referral - Closed Specialty Diagnoses / Procedures Referred By Contact Refer red To Contact Diagnoses Chest discomfort Jose Ramon Payton MD [facility] [address] [place] [id number] Referral ID Status Reason Start Date Expiration Date Visits Requ ested Visits Authorized [id number] Closed 06/29/2014 12/26/2014 1 1 Reason for Visit Reason Comments Chest Pain CV Cardio consult - Closed Specialty Diagnoses / Procedures Referred By Contact Refer red To Contact Diagnoses HTN (hypertension) CARDIOVASCULAR SCREENING; LDL GOAL LESS THAN 130 Family history of ischemic heart disease Jose M Rees [facility] [address] [place] [address] [address] [address] [place] [address] Phone: [phone] Fax: Referral ID Status Reason Start Date Expiration Date Visits Requ ested Visits Authorized [id number] Closed 05/30/2014 11/26/2014 1 1 Encounter Details Date Type Department Care Team Description 06/07/2014 Office Visit [facility] [place] [address] [id number] Chest discomfort (Primary Dx); Heart Clinic Jose Ramon Craig MD [facility] [address] [place] [address] Hypertension goal BP (blood pressure) < 140/90; [address] [facility] CARDIOVAS CULAR SCREENING; LDL GOAL LESS THAN 160 [facility] [address] [place] [address] Social History Tobacco Use Types Packs/Day Years [...] Sign Reading Time Taken Comments Blood Pressure 124/70 06/07/2014 10:00 AM CDT Pulse 58 06/07/2014 10:00 AM CDT Temperature - - Respiratory Rate - - Oxygen Saturation - - Inhaled Oxygen Concentration - - Weight 60.3 kg (133 lb) 06/07/2014 10:00 AM CDT Height 156.2 cm (5' 1.5) 06/07/2014 10:00 AM CDT Body Mass Index 24.72 06/07/2014 10:00 AM CDT documented in this encounter Progress Notes Jose Ramon Payton MD - 06/07/2014 10:46 AM CDT HPI and Plan: See dictation Orders Placed This Encounter Procedures ??? CT Angiogram coronary artery ??? Follow-Up with Therapeutic Recreation Director Orders Placed This Encounter Medications ??? Esomeprazole Magnesium (NEXIUM 24HR PO) Sig: Take by mouth daily OTC There are no discontinued medications. Encounter Diagnoses Name Primary? Chest discomfort Yes ? ? Hypertension goal BP (blood pressure) < 140/90 ??? CARDIOVASCULAR SCREENING; LDL GOAL LESS THAN 160 CURRENT MEDICATIONS: Current Outpatient Prescriptions Medication Sig Dispense Refill ??? Esomeprazole Magnesium (NEXIUM 24HR PO) Take by mouth daily OTC ??? simvastatin (ZOCOR) 20 MG tablet Take 1 tablet (20 mg) by mouth At Bedtime 30 tablet 5 ??? atenolol-chlorthalidone (TENORETIC) 50-25 MG per tablet Take 1 tablet by mouth daily 30 tablet 5 ??? FOLIC ACID PO Take 800 mcg by mouth daily ??? Cholecalciferol (VITAMIN D3 PO) Take 2,000 Units by mouth daily ??? GABAPENTIN PO Take 100 mg by mouth At Bedtime ??? Ellsworth-3 Fatty Acids (OMEGA-3 FISH OIL PO) Take 2.4 g by mouth daily ??? Ginkgo Biloba 40 MG TABS Take 120 mg by mouth daily ??? Multiple Vitamins-Minerals (OCUVITE PO) Take 1 tablet by mouth daily ??? CALCIUM CARBONATE PO Take 2,400 mg by mouth daily ??? Coenzyme Q10 (CO Q 10 PO) Take 100 mg by mouth 2 times daily ALLERGIES Allergies Allergen Reactions ??? No Known Drug Allergies PAST MEDICAL HISTORY: Past Medical History Diagnosis Date ??? Moderate persistent asthma 2005 cold air trigger ??? Hypertension ??? High cholesterol ??? Chest discomfort PAST SURGICAL HISTORY: Past Surgical History Procedure Laterality Date ??? C nonspecific procedure laparoscopy by PATTERN MAKER PROGRAMER FAMILY HISTORY: Family History Problem Relation Age of Onset ??? Allergies Brother ??? C.A.D. Brother ??? Heart Brother ??? Diabetes Brother ??? Aneurysm Brother ??? Heart attack Father ??? Coronary Artery Disease Father ??? Heart attack Brother ??? C.A.D. Brother ??? Heart attack Sister ??? Cancer - Ovarian Sister ??? Cancer - Other Sister ??? Cancer - Breast Sister ??? Neurological Sister MS SOCIAL HISTORY: History Social History ??? Marital [...] 65f 55m? Yes ??? Caffeine Concern No 0-3 coffee a day ??? Exercise No works at [employer]- lots of walking ??? Seat Belt Yes Social History Narrative Review of Systems: Skin: Negative Eyes: Positive for glasses ENT: Negative Respiratory: Positive for dyspnea on exertion Cardiovascular: Positive for;chest pain;lightheadedness;palpitations Gastroenterology: Negative Genitourinary: not assessed Musculoskeletal: Negative Neurologic: Positive for headaches Psychiatric: Negative Heme/Lymph/Imm: Negative Endocrine: Negative Physical Exam: Vitals: BP 124/70 Pulse 58 Ht 1.562 m (5' 1.5) Wt 60.328 kg (133 lb) BMI 24.73 kg/m2 LMP 02/22/2010 PE dictated. CC Kleber Ledesma PA-C [facility] [address] [place] [address] Jose Ramon Payton MD - 06/07/2014 10:46 AM CDT REQUESTING PROVIDER: Kleber Ledesma MD. INDICATION: Chest pain. HISTORY OF PRESENT ILLNESS: Ms. Scott is a pleasant 54-year-old female with a strong family historyof premature atherosclerotic disease with a father who had his first myocardial infarction at age 42, a brother who had his first myocardial infarction at age 36, and a sister with early premature coronary disease, is referred by her primary provider because of chest discomfort. Ms. Scott has had chest discomfort for the last 1 month, which has not improved. She states that it typically occurs in the center of her chest and epigastric region without radiation. It is associated with some shortness of breath and will last for up to 30 minutes per episode. It is not exacerbated by physical exertion or emotional distress. She did undergo an exercise stress echocardiogram on 05/29/2014 showing no evidence for myocardial ischemia. Unfortunately, the patient was only able to obtain a low to moderate workload, I believe due to chest discomfort. The patient does have multiple cardiovascular risk factors besides a strong family history of premature atherosclerotic disease including dyslipidemia for which she takes simvastatin 20 mg a day along with hypertension for which she takes atenolol/hydrochlorothiazide 1 tablet daily. I have reviewed the patient's allergies, medications, past medical history, social history, family history and review of systems with the patient and in the chart. Please see my separate note for thesefull details. PHYSICAL EXAMINATION: GENERAL: This is a middle-aged female in no acute distress. VITAL SIGNS: Blood pressure is 124/70, pulse is 58 and regular. HEART: Regular rate and rhythm. There are no significant murmurs, rubs or gallops. LUNGS: Clear. There are no crackles or wheezing. ABDOMEN: Soft and nontender. EXTREMITIES: Lower extremities show no edema. NEUROLOGIC: She is alert and oriented x3. PSYCHIATRIC: Her affect is normal. MUSCULOSKELETAL: Does not reveal any gross abnormalities of her major joints. DERMATOLOGICAL: Does not reveal any rashes on the exposed areas of skin. IMPRESSION: Mrs. Scott is a pleasant 54-year-old female with predominantly atypical chest discomfort, but multiple cardiovascular risk factors including a very alarming family history of premature atherosclerotic disease. During her stress test, she was not able to complete a high workload due to chest discomfort. PLAN: At this time, I have recommended a cardiac CT angiogram for further risk stratification. The patient was interested in invasive angiogram; however, looking at the risk/benefit ratio, I do not believe invasive angiography is warranted at this time unless we find significant obstructive disease onthe cardiac CT angiogram. In the interim, I have asked her to start aspirin 81 mg a day and continueher statin and beta analia unchanged. I will plan to see her back after the cardiac CT angiogram and if she is found to have nonobstructive disease we will likely change her simvastatin for a more potent statin at higher dose such as atorvastatin 40 mg a day or rosuvastatin 20 or 40 mg a day. In addition, I discussed the Mediterranean diet with the patient along with a formal exercise program. I have encouraged the patient to try to obtain 150 minutes of moderate intensity exercise per week. JOSE RAMON PAYTON MD MT: LR Name: MICAH SCOTT MRN: [id number] Account: [id number] : 1960 Service Date: 06/07/2014 Document: [id number] documented in this encounter Plan of Treatment Scheduled Referrals Name Type Priority Associated Diagnoses Order S chedule Follow-Up with Referral Routine Chest discomfort Expected: 06/29/2014 Therapeutic Recreation Director (Yelena), Expires: 2015 documented as of this encounter Results CT Angiogram coronary artery (06/11/2014 12:38 PM [...] ental noncardiac findings that will follow separately. RAUL BUSTOS MD Narrative 06/11/2014 3:48 PM CDT [...] were reconstructed and laura zed on a [employer] workstation. Scan protocol was optimized to minimize radiation exposure. The total radiation exposure i ncluding calcium score was calculated to be 139 DLP, and 1.9 mSv. Procedure Note Raul Bustos MD - 06/11/2014F ormatting of this [...] were reconstructed and laura zed on a [employer] workstation. Scan protocol was optimized to minimize [...] ental noncardiac findings that will follow separately. RAUL BUSTOS MD Jose Ramon Payton MD IMG CT ORDERABLES documented in this encounter Visit Diagnoses Diagnosis Chest discomfort - Primary Other chest pain Hypertension goal BP (blood pressure) < 140/90 Unspecified essential hypertension CARDIOVASCULAR SCREENING; LDL GOAL LESS THAN 160 Chest discomfort Other chest pain documented in this encounter Care Teams Academic Coach Relationship Specialty Start Date End Date Kleber Ledesma, PCP - General Physician Director Of Infection Control - 05/15/14 [facility] documented as of this encounter
--- OUTSIDE RECORDS SUMMARY | 2022-01-05 11:39 | XMS_ITS | Encounter Summary ---
:1960 Author Organization [facility] Address [address] [place] [address] Care Team Providers Name Role Phone Tashi Paredes MD Primary Care Provider Reason for Visit Reason Comments Cough Encounter Details Date Type Department Care Team Description 12/18/2004 Office Visit [facility] Tashi Paredes MD ACUTE URI NOS; Clinic [address] ASTHMA - MILD INTERMITTENT W ITH EXACERBATION [address] [place] [address] [phone] Social History Tobacco Use Types Packs/Day Years Used Date Smoking Tobacco: Never Alcohol Use Standard Drinks/Week Comments Yes 0 (1 standard drink = 0.6 oz pure alcoho l) very casual Sex Assigned at Date Recorded Not on file documented as of this encounter Last Filed Vital Signs Vital Sign Reading Time Taken Comments Blood Pressure 112/76 12/18/2004 11:00 AM LEARNING AND DEVELOPMENT DIRECTOR Pulse - - Temperature 36.9 ??C (98.4 ??F) 12/18/2004 11:00 AM LEARNING AND DEVELOPMENT DIRECTOR Respiratory Rate - - Oxygen Saturation - - Inhaled Oxygen Concentration - - Weight - - Height - - Body Mass Index - - documented in this encounter Progress Notes Tashi Paredes - 12/18/2004 11:37 AM CST . SUBJECTIVE: Amie Scott 44 year old female presents for persistent cough x 4 weeks, nonproductive, with no fever. She thinks this happens at this time every year. She did not believe that albuterolinhaler improved her. Histories Updated through 12-18-2004: Previous Medical History: ASTHMA - MODERATE PERSISTENT 2004 Comment: cold air trigger Review of patient's past surgical history indicates: NONSPECIFIC PROCEDURE Comment: laparoscopy by WOUND SPECIALIST No family history on file Obstetric History [...] Narrative None on file Current outpatient prescriptions: KETEK 400 MG OR TABS 2 TABLETS DAILY x 5 days PREDNISONE 20 MG OR TABS 2 TABLETS DAILY x 5days ADVAIR DISKUS 500-50 MCG/DOSE IN MISC 1 puff BID NO ACTIVE MEDICATIONS . Allergies As of Date: 12/18/2004 Noted Reaction NO KNOWN DRUG ALLERGIES 04/14/2004 Date Reviewed: 12/18/2004 ROS: C: NEGATIVE for fever, chills, change in weight,I: NEGATIVE for worrisome rashes, moles or lesions,E/M: NEGATIVE for ear, mouth and throat problems,R: NEGATIVE for significant cough or SOB,CV: NEGATIVEfor chest pain, palpitations or peripheral edema,GI: NEGATIVE for nausea, abdominal pain, heartburn,or change in bowel habits,: NEGATIVE for frequency, dysuria, or hematuria OBJECTIVE/EXAM: GENERAL APPEARANCE: healthy, alert and no distress HENT: ear canals and TM's normal and nose and mouth without ulcers or lesions NECK: no adenopathy, no asymmetry, masses, or scars and thyroid normal to palpation RESP: lungs clear but diminished - no rales, rhonchi or wheezes CV: regular rates and rhythm, normal S1 S2, no S3 or S4 and no murmur, click or rub ABDOMEN: soft, nontender, without hepatosplenomegaly or masses and bowel sounds normal NEURO: Normal strength and tone, , mentation intact and speech normal ASSESSMENT/PLAN: 1- Moderate asthma with mild exacerbation from URI. After d/w pt regarding risks and benefits as well as possible side effects, drug interactions and adverse reactions, pt accepts prescription for ketek and prednisone per HS orders. In addition, After d/w pt regarding risks and benefits as well as possible side effects, drug interactions and adverse reactions, pt accepts prescription for Advair diskus per HS orders as a controller medication. Pt to f/u with me in 4 weeks. NING AND DEVELOPMENT DIRECTOR documented in this encounter Nursing Notes 12/18/2004 11:00 AM CST >> PAM MONTOYA 12/18/2004 11:14 am Patient presents with: Cough x 6 weeks. Pt with concerns of URI induced asthma. Initial BP 112/76 Temp (Src) 98.4 (Oral) Estimated Body Mass Index is 26.51 kg/(m^2) as calculatedfrom: Height of 5' 2 (1.575m) as of 05/05/04 Weight of 145 lbs (65.772 kg) as of 05/05/04. BP completed using cuff size Regular Pam Montoya CMA documented in this encounter Plan of Treatment Not on filedocumented as of this encounter Visit Diagnoses Diagnosis Acute upper respiratory infections of un specified site Mild intermittent asthma with exacerbati on Unspecified asthma, with exacerbation documented in this encounter Care Teams Twisting Operator Relationship Specialty Start Date End Date Tashi Paredes MD PCP - General 04/14/04 12/01/11 [address] [id number] documented as of this encounter
--- OUTSIDE RECORDS SUMMARY | 2022-01-05 11:39 | XMS_ITS | Encounter Summary ---
:1960 Author Organization [facility] Address [address] [place] [address]. [place] [address] Care Team Providers Name Role Phone Kleber Ledesma PA-C Primary Care Provider [phone] Reason for Visit Reason Comments Urgent Care Chest Pain since this morning Encounter Details Date Type Department Care Team Description 05/28/2014 Office Visit [facility] Celestine Lim Chest pain (Primary Urgent Care Kavitha Devries APRN ENDODONTIC ASSISTANT Dx) [address] [place], [place] [address] [phone] Social History Tobacco Use Types Packs/Day Years Used Date Smoking Tobacco: Former Smokeless Tobacco: Never Alcohol Use Standard Drinks/Week Comments Yes 0 (1 standard drink = 0.6 oz pure alcoho l) very casual Sex Assigned at Date Recorded Not on file documented as of this encounter Last Filed Vital Signs Vital Sign Reading Time Taken Comments Blood Pressure 122/70 05/28/2014 6:41 PM CDT Pulse 60 05/28/2014 6:41 PM CDT Temperature 36.8 ??C (98.2 ??F) 05/28/2014 6:41 PM CDT Respiratory Rate - - Oxygen Saturation 100% 05/28/2014 6:41 PM CDT Inhaled Oxygen Concentration - - Weight 60.3 kg (133 lb) 05/28/2014 6:41 PM CDT Height 157.5 cm (5' 2) 05/28/2014 6:41 PM CDT Body Mass Index 24.33 05/28/2014 6:41 PM CDT documented in this encounter Patient Instructions Patient InstructionsCelestine Lim APRN CNP - 05/28/2014 7:44 PM CDT Images from the original note were not included. *CHEST PAIN, UNCERTAIN CAUSE Based on your exam today, the exact cause of your chest pain is not certain. Your condition does notseem serious at this time, and your pain does not appear to be coming from your heart. However, sometimes the signs of a serious problem take more time to appear. Therefore, watch for the warning signslisted below. HOME CARE: 1. Rest today and avoid strenuous activity. 2. Take any prescribed medicine as directed. FOLLOW UP with your doctor in 1-3 days. GET PROMPT MEDICAL ATTENTION if any of the following occur: ?? A change in the type of pain: if it feels different, becomes more severe, lasts longer, or beginsto spread into your shoulder, arm, neck, jaw or back ?? Shortness of breath or increased pain with breathing ?? Weakness, dizziness, or fainting ?? Cough with blood or dark colored sputum (phlegm) ?? Fever over 101?? F (38.3?? C) ?? Swelling, pain or redness in one leg ?? [id number] [place] [address]. All rights reserved. This information is not intended as a substitute for professional medical care. Always follow your healthcare professional's instructions. documented in this encounter Progress Notes Celestine Lim APRN CNP - 05/28/2014 8:10 PM CDT Chief Complaint Patient presents with ??? Urgent Care ??? Chest Pain since this morning SUBJECTIVE: Amie Scott is a 54 year old female who presents with chest discomfort which developed earlier this morning. Initially she had some palpitation early in the morning which stopped spontaneously. Later that afternoon she proceeded to have lunch with her daughter. She then experienced some excruciating chest discomfort which lasted for 20-30 minutes but resolved after taking a regular aspirin. Thereafter she proceeded to go home where she started experiencing some abdominal indigestion including some nausea but not vomiting and some diarrhea. That lasted for several hours, with some other intermittent chest discomfort which has improved somewhat. However she continues to experience mild midsternal chest wall discomfort. She also feels some indigestion but no diarrhea. No abdominal cramping. She had cold-like symptoms about 3 weeks ago and was treated with Augmentin for sinusitis. She has been symptom-free for about 1 week. However during cold-like illness she had some excessive coughing on nasal and chest congestion. She is a former smoker who quit about 30 years ago. She has a very strong and extensive cardiac history including multiple siblings having MIs, with 2 siblings having underthe age of 50 from having an FL. Other siblings have had CABG and other cardiac conditions. She had a stress test in 2006 which was of normal finding. She currently has no regular primary care provider. Hyperlipidemia with normal blood pressures. She is fairly active. No prior history of thrombosis. No close contacts with similar symptoms. I have reviewed the patient's medical history in detail and updated the computerized patient record. OBJECTIVE: BP 122/70 Pulse 60 Temp(Src) 98.2 ??F (36.8 ??C) (Oral) Ht 5' 2 (1.575 m) Wt 133 lb (60.328kg) BMI 24.32 kg/m2 SpO2 100% LMP 02/22/2010 middle-age female here with male significant other in no acute distress. Bilateral eyes were non injected with pupils equal and reactive to light. Fundi was normal. Bilateral TM were clear. Bilateral external ear canals were clear. Oral mucosa was moist without any erythema or exudate. No sig nificant cervical adenopathy. Lung sounds were clear to ascultation throughout without any wheezing or rales. No rhonchi. Heart was of regular rhythm and rate. No murmur. Abdomen was soft and nontender, with bowel sounds active throughout. No organomegaly. No unusual rash of the trunk. No edema. No calf tenderness. She was given a GI cocktail without any positive response. EKG sinus rhythm without any ectopy. ASSESSMENT/PLAN: (275.50) Chest pain (primary encounter diagnosis) Comment: Chest discomfort in a patient with multiple comorbidities and very strong cardiac risk factors. We discussed differentials extensively. I think given her history she should probably follow-up at the emergency room for troponins and other rule out testing. I encouraged her to establish a PCP to document her history and management appropriately to help avoid unnecessary referrals. She will follow-up with emergency room and PCP later. Report was discussed with [facility] ED attending. Plan: EKG 12-lead complete w/read - Clinics Celestine Lim APRN CNP documented in this encounter Plan of Treatment Not on filedocumented as of this encounter Procedures Procedure Name Priority Date/Time Associated Diagnosis Comme nts EKG 12-LEAD Routine 05/28/2014 6:50 PM Chest pain Results f or this COMPLETE W/READ - CDT procedure are in CLINICS the results section. documented in this encounter Results EKG 12-lead complete w/read - Clinics (05/28/2014 6:50 PM CDT) Narrative This result has an attachment that is no t available. Celestine Lim APRN, CNP ECG ORDERABLES documented in this encounter Visit Diagnoses Diagnosis Chest pain - Primary Chest pain, unspecified documented in this encounter Care Teams Plastic Cutter Relationship Specialty Start Date End Date Kleber Ledesma, PCP - General Physician Gameplay Programmer - 05/15/14 PAKerrie [facility] documented as of this encounter
--- OUTSIDE RECORDS SUMMARY | 2022-01-05 11:39 | XMS_ITS | Encounter Summary ---
:1960 Author Organization [facility] Address [address] [place] [id number] Care Team Providers Name Role Phone Kleber Ledesma PA-C Primary Care Provider [phone] Reason for Visit Reason Comments Chest Pain Encounter Details Date Type Department Care Team Description 05/28/2014 - Emergency [facility] Gustavo Samuel MD [address] [facility] [address] [id number] Chest pain 05/29/2014 [facility] Deyanira Bonilla PA-C [address] [place] [address] LUZMARIA CARL [id number] [address] [place] [address] Social History Tobacco Use Types Packs/Day Years Used Date Smoking Tobacco: Former Smokeless Tobacco: Never Alcohol Use Standard Drinks/Week Comments Yes 0 (1 standard drink = 0.6 oz pure alcoho l) very casual Sex Assigned at Date Recorded Not on file documented as of this encounter Last Filed Vital Signs Vital Sign Reading Time Taken Comments Blood Pressure 125/66 05/29/2014 1:18 PM CDT Pulse 72 05/28/2014 9:29 PM CDT Temperature 36.7 ??C (98 ??F) 05/29/2014 1:18 PM CDT Respiratory Rate 16 05/29/2014 1:18 PM CDT Oxygen Saturation 97% 05/29/2014 1:18 PM CDT Inhaled Oxygen Concentration - - Weight 65.1 kg (143 lb 8 oz) 05/28/2014 11:00 PM CDT Height 156.2 cm (5' 1.5) 05/28/2014 11:00 PM CDT Body Mass Index 26.68 05/28/2014 11:00 PM CDT documented in this encounter Discharge Summaries Usha Leahy PA-C - 05/29/2014 12:55 PM CDT [facility] Outpatient / Observation Unit Discharge Summary Amie Scott Date of : 1960 Age: [age] year old Date of Admission: 05/28/2014 Date of Discharge: 05/29/2014 Admitting Physician: Deyanira Bonilla PA-C Discharge Physician: Usha Leahy PA-C Discharging Service: Hospitalist Primary Provider: Kleber Ledesma Primary Care Physician Primary Discharge Diagnoses: Amie Scott was admitted on 05/28/2014 for concerns of acute chest pain. 1. Chest pain: Ruled out ACS. -Suspect GI source vs anxiety. Recommend trial of PPI or H2 analia for possible GI source. Pt seemsto have significant anxiety regarding her family hx of CAD, multiple members of the family with early CAD, brother underwent cardiac testing and everything was negative and then requested coronary cath which was significant for triple vessel disease and underwent bypass surgery. Secondary Discharge Diagnoses: Past Medical History Diagnosis Date ??? Moderate persistent asthma 2005 cold air trigger ??? Hypertension ??? High cholesterol Code Status: Full Code Brief Hospital Summary: Please refer to initial admission history and physical for further details. Briefly, Amie Scott was admitted on 05/28/2014 for concerns of acute chest pain. Initial work up in the ED did not reveal evidence of STEMI or findings consistent with unstable angina or acute coronary ischemia. Pt was registered to the Observation Unit for further evaluation. Pt ruled out with serial troponins, underwent Stress Echo that did not show evidence of significant coronary ischemia. Labs were reviewed and significant results addressed. On the day of discharge, pt was pain free, with no complaints of pain. Medications were reviewed and adjustments made as necessary. Pt is instructed to follow up as below. Significant Lab During Hospitalization: Recent Labs Lab 05/28/14 2130 WBC 8.3 HGB 14.0 HCT 42.5 MCV 84 PLT 271 Recent Labs Lab 05/28/142129 NA 141 POTASSIUM 3.4 CHLORIDE 105 CO2 28 ANIONGAP 8 GLC 93 BUN 22 CR 0.91 GFRESTIMATED 64 GFRESTBLACK 77 LETTY 9.0 PROTTOTAL 7.6 ALBUMIN 4.2 BILITOTAL 0.3 ALKPHOS 75 AST 26 ALT 43 Recent Labs Lab 05/28/142129 LIPASE 271 Recent Labs Lab 05/29/14256 CHOL 121 HDL 57 LDL 47 TRIG 86 CHOLHDLRATIO 2.1 Recent Labs Lab 05/28/142129 TSH 2.44 Recent Labs Lab 05/29/14 0702 05/29/1425605/28/142129 TROPONIN -- -- 0.00 TROPI <0.015The 99th percentile for upper reference range is 0.045 ug/L. Troponin values in the range of 0.045 - 0.120 ug/L may be associated with risks of adverse clinical events. Effective 09/06/2013, the reference range for this assay has changed to reflect new instrumentation/methodology. <0.015The 99th percentile for upper reference range is 0.045 ug/L. Troponin values in the range of 0.045- 0.120 ug/L may be associated with risks of adverse clinical events. Effective 09/06/2013, the reference range for this assay has changed to reflect new instrumentation/methodology. <0.015The 99th percentile for upper reference range is 0.045 ug/L. Troponin values in the range of 0.045 - 0.120 ug/Lmay be associated with risks of adverse clinical events. Effective 09/06/2013, the reference range for this assay has changed to reflect new instrumentation/methodology. Recent Labs Lab 05/28/14 2310 COLOR Light Yellow APPEARANCE Clear URINEGLC Negative URINEBILI Negative URINEKETONE Negative SG 1.015 UBLD Negative URINEPH 6.5 PROTEIN Negative NITRITE Negative LEUKEST Negative RBCU 1 WBCU <1 Significant Imaging During Hospitalization: Recent Results (from the past 48 hour(s)) XR CHEST 2 VW Narrative: CHEST TWO VIEWS 05/28/2014 10:05 PM HISTORY: Chest pain. COMPARISON: 04/20/2006 Impression: IMPRESSION: Normal. JOHN MCFARLAND MD Pending Results: Unresulted Labs Ordered in the Past 30 Days of this Admission Date and Time Order Name Status Description 05/28/2014 3164 Urine Culture Aerobic Bacterial Preliminary Consultations This Hospital Stay: No consultations were requested during this admission Discharge Instructions and Follow-Up: Follow-up notes from your care team Follow-up and recommended labs and tests Follow up with primary care provider, Kleber Ledesma within 7 days for hospital follow- up. No follow up labs or test are needed. Recommend trial of PPI or H2 analia for chest pain for potential GERD or spasm as source of pain. Pt instructed to follow up with PCP in 7 days and with [facility] if indicated. Follow-up Labs None Discharge Disposition: Discharged to home Discharge Medications: Current Discharge Medication List CONTINUE these medications which have NOT CHANGED Details FOLIC ACID PO Take 800 mcg by mouth daily Cholecalciferol (VITAMIN D3 PO) Take 2,000 Units by mouth daily atenolol-chlorthalidone (TENORETIC) 50-25 MG per tablet Take 1 tablet by mouth daily SIMVASTATIN PO Take 20 mg by mouth At Bedtime GABAPENTIN PO Take 100 mg by mouth At Bedtime [place]-3 Fatty Acids (OMEGA-3 FISH OIL PO) Take 2.4 g by mouth daily Coenzyme Q10 (CO Q 10 PO) Take 20 mg by mouth daily (with lunch) Ginkgo Biloba 40 MG TABS Take 120 mg by mouth daily Multiple Vitamins-Minerals (OCUVITE PO) Take 1 tablet by mouth daily CALCIUM CARBONATE PO Take 2,400 mg by mouth daily Allergies: Allergies Allergen Reactions ??? No Known Drug Allergies Condition and Physical on Discharge: Discharge condition: Stable Vitals: Blood pressure 106/74, pulse 72, temperature 98.4 ??F (36.9 ??C), temperature source Oral, resp. rate 16, height 1.562 m (5' 1.5), weight 65.091 kg (143 lb 8 oz), last menstrual period 02/22/2010, SpO2 96 %, not currently . 143 lbs 8 oz GENERAL: Comfortable. PSYCH: pleasant, oriented, No acute distress. HEENT: Atraumatic, normocephalic. NECK: Supple HEART: RRR. LUNGS: Normal Respiratory effort. NEUROLOGIC: Grossly intact Usha Leahy PA-C Associated attestation - Cristy Archer MD - 05/30/2014 12:19 PM CDT Physician Attestation I, Cristy Archer, personally saw and evaluated Amie Scott as part of a shared visit. I have reviewed and discussed with the advanced practice provider their discharge plan. My colbert history or physical exam findings from the day of discharge: stable exam, results Colbert management decisions made by me: Discharge plan Cristy Archer Date of Service (when I saw the patient): 05/29/14 documented in this encounter Medications at Time of Discharge Medication Sig Dispensed Refills Start Date End Date atenolol-chlorthalidone Take 1 tablet by 0 05/30/2014 (TENORETIC) 50-25 MG per mouth daily tablet CALCIUM CARBONATE PO Take 2,400 mg by 0 09/22/2019 mouth daily Cholecalciferol (VITAMIN D3 Take 2,000 Units 0 09/22/2019 PO) by mouth daily Coenzyme Q10 (CO Q 10 PO) Take 100 mg by 0 09/22/2019 mouth 2 times daily FOLIC ACID PO Take 800 mcg by 0 2014 mouth daily GABAPENTIN PO Take 100 mg by 0 015 mouth At Bedtime Ginkgo Biloba 40 MG TABS Take 120 mg by 0 09/22/2019 mouth daily Multiple Vitamins-Minerals Take 1 tablet by 0 09/22/2019 (OCUVITE PO) mouth daily [place]-3 Fatty Acids Take 2.4 g by 0 (OMEGA-3 FISH OIL PO) mouth daily SIMVASTATIN PO Take 20 mg by 0 015 mouth At Bedtime documented as of this encounter Progress Notes Bev Vizcarra - 05/29/2014 1:49 PM CDT Stress echo completed. documented in this encounter H&P Notes Deyanira Bonilla PA-C - 05/28/2014 10:34 PM CDT History and Physical Amie Scott Date of : 1960 Age: [age] year old Date of Admission: 05/28/2014 Primary care provider: Kleber Ledesma Assessment: Amie Scott is a 54 year old female with a PMH significant for HTN; HLP, who presents with chestpain. Work up in ED reveals: VSS; CMP, CBC wnl; lipase wnl; troponin negative; EKG shows SR with VR 67, noevidence of ischemic changes; CXR negative for acute abnormality. Patient is being registered to observation for further evaluation and to rule out possible ACS. 1. Acute Chest pain: likely GI etiology, but given risk factors will r/o cardiac etiology. Obtain serial troponin, monitor on telemetry overnight. Patient to undergo stress echo in AM. Lipid panel, TSHpending. 2. HTN: continue chlorthalidone, resume atenolol following stress echo 3. HLP: continue simvastatin DVT prophylaxis: encourage ambulation Plan: 1. [place] to Observation 2. Monitor on telemetry 3. Follow serial troponins, check fasting lipids 4. Stress testing with Stress Echo 5. Cont Aspirin EC 81 mg po daily 6. Blood pressure control 7. Morphine and nitroglycerine PRN for pain 8. Regular diet, No caffeine if Nuclear testing selected Chief Complaint: Chest Pain History of Present Illness: Amie Scott is a 54 year old female with a PMH significant for HTN; HLP, who presents with chestpain. Patient c/o palpitations this morning around 1000, which she's had in the past and resolved without intervention. Patient c/o sudden onset, severe, low sub-sternal/epigastric pain around noon, right before she was going to have lunch with her daughter. Patient took ASA w/o relief, and pain resolved spontaneously within 20-30 minutes. Patient able to eat lunch w/o issue. Around 1430, patient hadrecurrence of epigastric pain which radiated into her central abdomen. Also experienced episode of loose diarrhea, nausea, & fatigue. Denies f/c/s, SOB, GODDARD, dizziness or lightheadedness, abd bloating, swelling in LE, focal numbness or weakness. Cardiac risk factors: negative for diabetes mellitus and obesity and positive for abnormal lipids, family history (father & brother with onset CAD in early 40s, both of AMI in late 40s), hypertension, post menopausal and smoking (former, quit 30+yrs ago). Last stress test in 2007 was normal. In ED, VSS. CMP, CBC wnl. Lipase wnl. Troponin negative. EKG shows SR with VR 67, no evidence of ischemic changes. CXR negative for acute abnormality. Patient given SL nitro x2 with relief. Patient admitted under observation for further evaluation and management. Past Medical History: Past Medical History Diagnosis Date ??? Moderate persistent asthma 2005 cold air trigger ??? Hypertension ??? High cholesterol Past Surgical History: Past Surgical History Procedure Laterality Date ??? C nonspecific procedure laparoscopy by NDT INSPECTOR Social History: History Social History ??? Marital Status: Spouse Name: N/A Number of Children: N/A ??? Years of Education: N/A Occupational History ??? Not on file. Social History Main Topics ??? Smoking status: Former Smoker ??? Smokeless tobacco: Never Used ??? Alcohol Use: Yes Comment: very casual ??? Drug Use: No ??? Sexual Activity: Partners: Male Other Topics Concern ??? Parent/Sibling W/ Cabg, Mi Or Angioplasty Before 65f 55m? Yes Social History Narrative Family History: Family History Problem Relation Age of Onset ??? Allergies Brother ??? C.A.D. Brother ??? Heart Brother ??? Diabetes Brother ??? Aneurysm Brother ??? Heart attack Father ??? Heart attack Brother ??? C.A.D. Brother ??? Heart attack Sister ??? Cancer - Ovarian Sister ??? Cancer - Other Sister ??? Cancer - Breast Sister ??? Neurological Sister MS Allergies: Allergies Allergen Reactions ??? No Known Drug Allergies Medications: Prior to Admission medications Medication Sig Last Dose Taking? Auth Provider FOLIC ACID PO Take 1 mg by mouth daily Yes Reported, Patient Cholecalciferol (VITAMIN D3 PO) Take 2,000 Units by mouth daily Yes Reported, Patient atenolol-chlorthalidone (TENORETIC) 50-25 MG per tablet Take 1 tablet by mouth daily Yes Reported, Patient SIMVASTATIN PO Take 20 mg by mouth Yes Reported, Patient GABAPENTIN PO Take 100 mg by mouth Yes Reported, Patient [place]-3 Fatty Acids (OMEGA-3 FISH OIL PO) Take 2 g by mouth Yes Reported, Patient Coenzyme Q10 (CO Q 10 PO) Yes Reported, Patient Ginkgo Biloba 40 MG TABS Yes Reported, Patient Multiple Vitamins-Minerals (OCUVITE PO) Yes Reported, Patient CALCIUM CARBONATE PO Take 2,400 mg by mouth daily Reported, Patient Review of Systems: A Comprehensive greater than 10 system review of systems was carried out. Pertinent positives and negatives are noted above. Otherwise negative for contributory information. Review Of Systems Skin: negative Eyes: negative Ears/Nose/Throat: negative Respiratory: No shortness of breath, dyspnea on exertion, cough, or hemoptysis Cardiovascular: as above Gastrointestinal: as above Genitourinary: negative Musculoskeletal: negative Neurologic: negative Psychiatric: negative Hematologic/Lymphatic/Immunologic: negative Endocrine: negative Physical Exam: Blood pressure 109/69, pulse 72, temperature 98.9 ??F (37.2 ??C), temperature source Oral, resp. rate 16, height 1.562 m (5' 1.5), weight 60.328 kg (133 lb), last menstrual period 02/22/2010, SpO2 95 %, not currently . GENERAL: alert, cooperative and no acute distress HEENT: eyes grossly normal to inspection; Nose- normal; Mouth- no ulcers, no lesions NECK: supple, symmetric RESP: lungs clear to auscultation bilat - no rales, no rhonchi, no wheezes CV: regular rates and rhythm, normal S1 S2, no S3 or S4 and no murmur, click or rub ABDOMEN: soft, no tenderness, no masses palpated, normal bowel sounds MS: extremities- no gross deformities noted, no edema SKIN: no suspicious lesions, no rashes NEURO: cranial nerves II-XII grossly intact, sensory exam- grossly normal, mentation- intact, speech- normal PSYCH: Alert and oriented times 3; coherent speech. Affect is normal. Data: EKG demonstrates: appears normal, NSR, normal axis, normal intervals, no acute ST/T changes c/w ischemia, no LVH by voltage criteria, unchanged from previous tracings. Recent Labs Lab 05/28/142129 WBC 8.3 HGB 14.0 HCT 42.5 MCV 84 PLT 271 Recent Labs Lab 05/28/142129 NA 141 POTASSIUM 3.4 CHLORIDE 105 CO2 28 ANIONGAP 8 GLC 93 BUN 22 CR 0.91 GFRESTIMATED 64 GFRESTBLACK 77 LETTY 9.0 PROTTOTAL 7.6 ALBUMIN 4.2 BILITOTAL 0.3 ALKPHOS 75 AST 26 ALT 43 Recent Labs Lab 05/28/14 2130 LIPASE 271 Recent Labs Lab 05/28/14 2130 TROPONIN 0.00 TROPI <0.015The 99th percentile for upper reference range is 0.045 ug/L. Troponin values in the range of 0.045 - 0.120 ug/L may be associated with risks of adverse clinical events. Effective 09/06/2013, the reference range for this assay has changed to reflect new instrumentation/methodology. Results for orders placed during the hospital encounter of 05/28/14 XR CHEST 2 VW Narrative: CHEST TWO VIEWS 05/28/2014 10:05 PM HISTORY: Chest pain. COMPARISON: 04/20/2006 Impression: IMPRESSION: Normal. MD Deyanira SEGUNDO PA-C Associated attestation - Cristy Archer MD - 05/30/2014 12:16 PM CDT Physician Attestation I, Cristy Archer, have reviewed and discussed with the advanced practice provider their history, physical and plan for Amie Scott. I did not participate in a shared visit by interviewing or examining the patient and this should be billed as an advanced practice provider only visit. Cristy Archer Date of Service (when I saw the patient): I did not personally see this patient today. documented in this encounter ED Notes Dewey Acharya RN - 05/29/2014 10:54 AM CDT Pt. Off floor for stress test Dewey Acharya RN - 05/29/2014 9:43 AM CDT Pt. Reports she would like to resume blood pressure medications at home because of observation status Ann Wells RN - 05/28/2014 10:09 PM CDT Pt returned from x-ray. Denies chest pain at this time. Call light within reach. Family at bedside. Siderails up x 2. Will continue to monitor. Mary Anna RN - 05/28/2014 9:25 PM CDT Pt reports palpitations starting yesterday morning. Pt has 30 minute episode of CP at 10:30 this morning. Pt then had CP, nausea, and diarrhea starting at 2:30 this afternoon. Pt has family history of cardiac problems. Yasir Samuel - 05/28/2014 9:24 PM CDT History Chief Complaint: Chest Pain HPI Amie Scott is a 54 year old female who presents with chest pain. The patient reports that she started to experience palpitations followed by a centralized chest pain at 10 today while she was getting ready to go and have dinner with her daughter. The pain resolved after 30 minutes and the patientwent out to eat with her daughter. At 1230 today she was at home when she started to experience diffuse nonradiating chest pain (1/10 in severity currently, not worse with eating) with associated nausea, diarrhea and malaise that has continued since. The patient took aspirin prior to arrival. The patient was sent over from . The patient denies any shortness of breath, vomiting, fever, chills, leg swelling, abdominal pain, cough, or any other physical complaints at this time. Cardiac/PE/DVT Risk Factors: The patient has a history of hypertension and hyperlipidemia. She has no history of diabetes. The patient is a former smoker. She reports an extensive family history of CAD and MD, although she denies PMH of MD. The patient no any personal or familial history of PE, DVT, or clotting disorder. The patient reports no recent travel, surgery, or other immobilizations. Allergies: NKDA Medications: Tenoretic Simvastatin Gabapentin Past Medical History: HTN Hyperlipidemia Asthma Past Surgical History: Laparoscopy Family / Social History: CAD DM Aneurysm MD CA MS Marital Status: [4] Social History: The patient is a former smoker. The patient drinks alcohol occasionally. Review of Systems Constitutional: Negative for fever and chills. Malaise. Respiratory: Negative for cough and shortness of breath. Cardiovascular: Positive for chest pain and palpitations. Negative for leg swelling. Gastrointestinal: Positive for nausea and diarrhea. Negative for vomiting and abdominal pain. All other systems reviewed and are negative. Physical Exam First Vitals: BP: 107/65 mmHg Temp: 98.9 ??F (37.2 ??C) Temp src: Oral Pulse: 72 Resp: 16 SpO2: 97 % Height: 156.2 cm (5' 1.5) Weight: 60.328 kg (133 lb) Physical Exam General: Alert, interactive in no distress, well appearing Head: Scalp is atraumatic Eyes: The pupils are equal, round, and reactive to light EOM's intact No scleral icterus ENT: Nose: The external nose is normal Ears: External ears are normal Mouth/Throat: The oropharynx is normal Mucus membranes are moist Neck: Normal range of motion. There is no rigidity. Trachea is in the midline CV: Regular rate and rhythm No murmur Resp: Breath sounds are clear bilaterally Non-labored, no retractions or accessory muscle use GI: Abdomen is soft, no distension, no tenderness. MS: Normal strength in all 4 extremities, No midline cervical, thoracic, or lumbar tenderness Skin: Warm and dry, No rash or lesions noted. Neuro: Strength 5/5 x4. Sensation intact In all 4 extremities. Cranial nerves 2-12 intact. Psych: Awake. Alert. Normal affect. Appropriate interactions. Emergency Department Course ECG: Indication: chest pain Time: 2126 Vent. Rate 67 bpm. IA interval 148. QRS duration 94. QT/QTc 400/422. P-R-T axis 64 63 62. Normal sinus rhythm. Nonspecific ST abnormality. Abnormal ECG. Read time: 2129 Imaging: Radiographic findings were communicated with the patient who voiced understanding of the findings. CXR: Normal. Per radiology. Laboratory: CBC: WBC 8.3 HGB 14 PLT 271 WNL CMP: Creat 0.91 WNL Troponin: <0.015 Lipase: 271 Troponin: 0.00 Interventions: 2136 Nitrostat 0.4 mg sublingual 2136 NaCl 1000 mL IV Emergency Department Course: Nursing notes and vitals reviewed. I performed an exam of the patient as documented above. IV inserted and blood drawn. Interventions (if any) and laboratory workup as above. The patient was sent for a CXR while in the emergency department, findings above. Findings and plan explained to the Patient who consents to admission. Discussed the patient with , who will admit the patient to a Obs bed for further monitoring, evaluation, and treatment. Impression & Plan Medical Decision Making: Amie Scott is a very pleasant 54 year old female who came into the ED today with central chest pain. She has had 2 episodes of chest pain over the course of the last 8 hours or so. Her pain was mild on arrival and resolved with nitroglyn. EKG showed very subtle ST depressions in the lateral leads, which at this point appears nonspecific. There is certainly no ST elevation. I did not have an old EKG image to compare to. CXR does not show pneumothorax. The patient's PERC score is 1, only related to her age. I believe she is at very low risk for a PE. An initial troponin is negative, however, patient has significant risk factors with numerous family members with CAD, HTN, hypercholesterolia. I believe that she should come into the hospital for serial cardiac enzymes and likely for stress test, since her last stress test was 8 years ago. Patient was agreeable to this plan. She took aspirin prior to arrival. She is now pain free and she is admitted to the observation unit. Diagnosis: 1. (786.50) Chest pain. I, Buck Greer, am serving as a scribe on 05/28/2014 at 9:25 PM to personally document services performed by Yasir Eisenberg, * based on my observations and the provider's statements to me. Buck Greer 05/28/2014 [facility] EMERGENCY DEPARTMENT Yasir Samuel MD 05/29/14 1553 documented in this encounter Miscellaneous Notes Plan of Care - Pauline Hernandez RN - 05/29/2014 12:30 PM CDT Problem: Goal Outcome Summary Goal: Goal Outcome Summary PRIMARY DIAGNOSIS: CHEST PAIN OUTPATIENT/OBSERVATION GOALS TO BE MET BEFORE DISCHARGE: 1.Negative Serial Troponin Yes 2. Resolution of chest pain Yes 3. Negative stress test Yes 4. Stable vital signs Yes Nurse to notify provider when observation goals have been met and patient is ready for discharge. Plan of Care - Dewey Acharya RN - 05/29/2014 8:40 AM CDT Problem: Individualization Goal: 1. Patient Specific Preference PRIMARY DIAGNOSIS: CHEST PAIN OUTPATIENT/OBSERVATION GOALS TO BE MET BEFORE DISCHARGE: 1.Negative Serial Troponin Yes 2. Resolution of chest pain No - 1-04/17; reproducible with movement and deep breath 3. Negative stress test No - will have exercise stress test 4. Stable vital signs Yes Nurse to notify provider when observation goals have been met and patient is ready for discharge. Plan of Care - Silvina Titus RN - 05/29/2014 4:24 AM CDT Problem: Individualization Goal: 1. Patient Specific Preference PRIMARY DIAGNOSIS: CHEST PAIN OUTPATIENT/OBSERVATION GOALS TO BE MET BEFORE DISCHARGE: 1.Negative Serial Troponin Yes 2. Resolution of chest pain Yes 3. Negative stress test No, in AM 4. Stable vital signs Yes Nurse to notify provider when observation goals have been met and patient is ready for discharge. Plan of Care - Silvina Titus RN - 05/29/2014 12:30 AM CDT Problem: Individualization Goal: 1. Patient Specific Preference PRIMARY DIAGNOSIS: CHEST PAIN OUTPATIENT/OBSERVATION GOALS TO BE MET BEFORE DISCHARGE: 1.Negative Serial Troponin Yes 2. Resolution of chest pain Yes 3. Negative stress test No, in AM 4. Stable vital signs Yes Nurse to notify provider when observation goals have been met and patient is ready for discharge. Pharmacy-Admission Medication History - Mushtaq James RPH - 05/28/2014 10:39 PM CDT Admission medication history interview status for this patient is complete. See [facility] admission navigator for allergy information, prior to admission medications and immunization status. 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 No Prior to Admission medications Medication Sig Last Dose Taking? Auth Provider FOLIC ACID PO Take 800 mcg by mouth daily 05/28/2014 at Unknown time Yes Reported, Patient Cholecalciferol (VITAMIN D3 PO) Take 2,000 Units by mouth daily 05/28/2014 at am Yes Reported, Patient atenolol-chlorthalidone (TENORETIC) 50-25 MG per tablet Take 1 tablet by mouth daily 05/28/2014 at amYes Reported, Patient SIMVASTATIN PO Take 20 mg by mouth At Bedtime 05/27/2014 at Unknown time Yes Reported, Patient GABAPENTIN PO Take 100 mg by mouth At Bedtime 05/27/2014 at Unknown time Yes Reported, Patient [place]-3 Fatty Acids (OMEGA-3 FISH OIL PO) Take 2.4 g by mouth daily 05/28/2014 at Unknown time Yes Reported, Patient Coenzyme Q10 (CO Q 10 PO) Take 20 mg by mouth daily (with lunch) 05/28/2014 at Unknown time Yes Reported, Patient Ginkgo Biloba 40 MG TABS Take 120 mg by mouth daily 05/28/2014 at Unknown time Yes Reported, Patient Multiple Vitamins-Minerals (OCUVITE PO) Take 1 tablet by mouth daily 05/28/2014 at 1200 Yes Reported,Patient CALCIUM CARBONATE PO Take 2,400 mg by mouth daily 05/28/2014 at Unknown time Yes Reported, Patient documented in this encounter Plan of Treatment Not on filedocumented as of this encounter Procedures Procedure Name Priority Date/Time Associated Comments Diagnosis ECHO STRESS TEST STAT 05/29/2014 11:30 Results for this AM CDT procedure are i n the results section. TROPONIN I STAT 05/29/2014 7:02 AM Chest pain Results f or this CDT procedure are i n the results section. EKG 12-LEAD, TRACING STAT 05/29/2014 6:21 AM R esults for this ONLY CDT procedure are i n the results section. TROPONIN I Timed 05/29/2014 2:57 AM Chest pain Results f or this CDT procedure are i n the results section. LIPID REFLEX TO DIRECT Routine 05/29/2014 2:57 AM Chest pain Results for this LDL PANEL CDT procedure are i n the results section. ROUTINE UA WITH STAT 05/28/2014 11:10 Chest pain Results for this MICROSCOPIC PM CDT procedure are i n the results section. URINE CULTURE Routine 05/28/2014 11:10 Chest pain Results fo r this PM CDT procedure are i n the results section. XR CHEST 2 VIEWS STAT 05/28/2014 10:05 Results for this PM CDT procedure are i n the results section. CBC WITH PLATELETS & STAT 05/28/2014 9:30 PM R esults for this DIFFERENTIAL CDT procedure are i n the results section. TSH WITH FREE T4 Routine 05/28/2014 9:30 PM Chest pain Resul ts for this REFLEX CDT procedure are i n the results section. TROPONIN POCT Routine 05/28/2014 9:30 PM Results for this CDT procedure are i n the results section. TROPONIN I STAT 05/28/2014 9:30 PM Results f or this CDT procedure are i n the results section. LIPASE STAT 05/28/2014 9:30 PM Results f or this CDT procedure are i n the results section. COMPREHENSIVE STAT 05/28/2014 9:30 PM Results for this METABOLIC PANEL CDT procedure ar e in the results section. EKG 12-LEAD, TRACING STAT 05/28/2014 9:27 PM R esults for this ONLY CDT procedure are i n the results section. documented in this encounter Results Exercise Stress Echocardiogram (05/29/2014 11:30 AM CDT) Anatomical Region Laterality Modality Echocardiography Specimen (Source) Anatomical Collection Method Collection Time Re ceived Time Location / / Volume Laterality 05/29/2014 11:09 AM CDT Narrative 05/29/2014 12:01 PM CDT Interpretation Summary Chest pain noted before/during/after str ess test. No significant ST changes seen. Normal resting wall motion and no stress-induced wall motion abnormality. This was a normal stress ec hocardiogram. A low to moderate workload was achieved. PatientHeight: 62 in PatientWeight: 133 lbs SystolicPressure: 122 mmHg DiastolicPressure: 70 mmHg HeartRate: 74 bpm BSA 1.6 m^2 Baseline Normal baseline electrocardiogram. The visual ejection fraction is estimate d at 55-60%. Normal left ventricular wall motion. Stress Pt having 1-2/10 chest pain at rest that did not worsen or dissipate with exercise. Exercise was stopped due to fatigue. Target Heart Rate was achieved. Chest pain noted before/during/after str ess test. No significant ST changes seen. A low to moderate workload was achieved. Normal resting wall motion and no stress -induced wall motion abnormality. This was a normal stress echocardiogram. Aortic Valve There is trace to mild aortic regurgitat ion. No hemodynamically significant valvular aortic stenosis. Procedure Stress Echo Complete. Stress Results Protocol: ??Iván Target HR: 140 bpm ?Max imum Predicted HR: 165 bpm Stage ?Duration(mm:ss) ??HR(bp m) ?? BP ?DOSE ??Comment ? 03:00 ?127 ? 128/68 ? 03:00 ?142 ? 148/72 ? 00:45 ?157 ? / ? RPP: [id number] Recovery ? 06:00 ?90 ?100/70 ? Stress Duration: 06:45 mm:ss ??Recovery Time: 06:00 mm:ss Maximum Stress HR: 157 bpm ?METS: 8 Interpreting Physician: ??Paresh Mcdaniel MD electronically signed on 05-29-2014 12:01:12 Procedure Note Paresh Mcdaniel MD - 05/29/2014Format ting of this note might be different from the original. Interpretation Summary Chest pain noted before/during/after str ess test. No significant ST changes seen. Normal resting wall motion and no stress-induced wall motion abnormality. This was a normal stress ec hocardiogram. A low to moderate workload was achieved. PatientHeight: 62 in PatientWeight: 133 lbs SystolicPressure: 122 mmHg DiastolicPressure: 70 mmHg HeartRate: 74 bpm BSA 1.6 m^2 Baseline Normal baseline electrocardiogram. The visual ejection fraction is estimate d at 55-60%. Normal left ventricular wall motion. Stress Pt having 1-2/10 chest pain at rest that did not worsen or dissipate with exercise. Exercise was stopped due to fatigue. Target Heart Rate was achieved. Chest pain noted before/during/after str ess test. No significant ST changes seen. A low to moderate workload was achieved. Normal resting wall motion and no stress -induced wall motion abnormality. This was a normal stress echocardiogram. Aortic Valve There is trace to mild aortic regurgitat ion. No hemodynamically significant valvular aortic stenosis. Procedure Stress Echo Complete. Stress Results Protocol: Iván Target HR: 140 bpm Maximum Predicted HR : 165 bpm Stage Duration(mm:ss) HR(bpm) BP DOSE Co mment 03:00 127 128/68 03:00 142 148/72 00:45 157 / RPP: [id number] Recovery 06:00 90 100/70 Stress Duration: 06:45 mm:ss Recovery T jovanny: 06:00 mm:ss Maximum Stress HR: 157 bpm METS: 8 Interpreting Physician: Paresh Mcdaniel MD electronically signed on 05-29-2014 12:01:12 Deyanira Bonilla PA-C CV ECHO ORDERABLES Troponin I (now) (05/29/2014 7:02 AM CDT) [facility] Method Time Signature Troponin I ES <0.015 0.000 - [place] The 99th percentile for uppe r reference range is 0.045 ug/L. ??Troponin values in 0.045 [place] the range of 0.045 - 0.120 ug/L may be associated wit h risks of adverse ug/L HOSPITAL clinical events. Effective 09/06/2013, the re ference range for this assay has changed to reflect new instrumentation/methodology. Specimen Anatomical Collection Method Collection Time Receive d Time (Source) Location / / Volume Laterality Blood specimen 05/29/2014 7:02 AM 015 7:08 (specimen) CDT AM CDT Deyanira Villarreal Chromy PA-C LAB - BLOOD ORDERABLES Performing Organization Address City/[facility] Phon e Number [place] [address], [place] [address] [facility] [address], [place] [address] EKG 12 lead (05/29/2014 6:21 AM CDT) [facility] Method Time Signature Interpretation ECG Click View RADIOLOGY Image link RESULTS to view waveform and result Specimen (Source) Anatomical Collection Method Collection Time Re ceived Time Location / / Volume Laterality 05/29/2014 6:21 AM CDT Deyanira Villarreal Chromy PA-C ECG ORDERABLES Performing Organization Address [facility] Phon e Number RADIOLOGY RESULTS Lipid panel reflex to direct LDL (05/29/2014 2:57 AM CDT) P athologist Signature Cholesterol 121 <200 mg/dL [facility] Comment: LDL Cholesterol is the primary guide to therapy. The NCEP recommends further evaluation of: patients with cholesterol greater than 200 mg/dL if additional risk facto rs are present, cholesterol greater than 240 mg/dL, triglycerides greater than 1 50 mg/dL, or HDL less than 40 mg/dL. Triglycerides 86 0 - 150 mg/dL [facility] HDL Cholesterol 57 >50 mg/dL [facility] LDL Cholesterol Calculated 47 0 - 129 mg/dL [facility] Comment: LDL Cholesterol is the primary guide to therapy: LDL-cholesterol goal in high risk patients is <100 mg/dL and in very high risk patients is <70 mg/dL. VLDL-Cholesterol 17 0 - 30 mg/dL [facility] Cholesterol/HDL Ratio 2.1 0.0 - 5.0 [facility] Specimen Anatomical Collection Method Collection Time Receive d Time (Source) Location / / Volume Laterality 05/29/2014 2:57 AM 5 3:02 CDT AM CDT Deyanira Villarreal Chromy PA-C LAB - BLOOD ORDERABLES Performing Organization Address City/[facility] Phon e Number [facility] [address], [place] [address] [facility] [address], [place] [address] 7 Troponin I (05/29/2014 2:57 AM CDT) [facility] Method Time Signature Troponin I ES <0.[address] The 99th percentile for uppe r reference range is 0.045 ug/L. ??Troponin values in 0.045 [place] the range of 0.045 - 0.120 ug/L may be associated wit h risks of adverse ug/L HOSPITAL clinical events. Effective 09/06/2013, the re ference range for this assay has changed to reflect new instrumentation/methodology. Specimen Anatomical Collection Method Collection Time Receive d Time (Source) Location / / Volume Laterality Blood specimen 05/29/2014 2:57 AM 015 3:02 (specimen) CDT AM CDT Deyanira Bonilla PA-C LAB - BLOOD ORDERABLES Performing Organization Address City/State/ZIP Code Phon e Number [facility] [address], [place] [address] [place] [address] [address], [place] [address] 7 Urine Culture Aerobic Bacterial (05/28/2014 11:10 PM CDT) Component Value Ref Test Analysis Performed At [facility] Signature Specimen Midstream Urine [facility] Special Specimen [facility] Requests received in [facility] Culture Micro No growth INFECTIOUS DISEASE DIAGNOSTIC LABORATORY Micro Report FINAL INFECTIOUS Status 05/29/2014 DISEASE DIAGNOSTIC LABORATORY Specimen Anatomical Collection Method Collection Time Receive d Time (Source) Location / / Volume Laterality Urine specimen MID-STREAM URINE 05/28/2014 11:10 05/28 (specimen) SPECIMEN / Unknown PM CDT 11:23 PM CDT Yasir Samuel MD LAB - MICRO GENERAL ORDERABL ES Performing Organization Address City/State/ZIP Code Phon e Number INFECTIOUS DISEASES [address] [place] [address] DIAGNOSTIC LABORATORY, [facility] [address], [place] [address] [address], [facility] INFECTIOUS DISEASE [address] DIAGNOSTIC LABORATORY UA with Microscopic (05/28/2014 11:10 PM CDT) [facility] Method Time Signature Color Urine Light Yellow [facility] Appearance Urine Clear [facility] Glucose Urine Negative NEG mg/dL [facility] Bilirubin Urine Negative NEG [facility] Ketones Urine Negative NEG mg/dL [facility] Specific [place] 1.015 1.003 - [place] Urine 1.035 [facility] Blood Urine Negative NEG [facility] pH Urine 6.5 5.0 - 7.0 [place] pH [facility] Protein Albumin Negative NEG mg/dL [facility] Urobilinogen Normal 0.0 - 2.0 [place] mg/dL mg/dL [facility] Nitrite Urine Negative NEG [facility] Leukocyte Negative NEG [place] Esterase Urine [facility] Source Midstream [facility] WBC Urine <1 0 - 2 [place] /HPF [facility] RBC Urine 1 0 - 2 [place] /HPF [facility] Squamous 1 0 - 1 [place] Epithelial /HPF /HPF [facility] Specimen Anatomical Collection Method Collection Time Receive d Time (Source) Location / / Volume Laterality Urine specimen MID-STREAM URINE 05/28/2014 11:10 05/28 (specimen) SPECIMEN / Unknown PM CDT 11:23 PM CDT Yasir Samuel MD LAB - URINE ORDERABLES Performing Organization Address City/State/ZIP Code Phon e Number [place] [address] [place] [address] [facility] [address], [place] [address] 7 XR Chest 2 Views (05/28/2014 10:05 PM CDT) Anatomical Region Laterality Modality Chest Computed Radiography Specimen (Source) Anatomical Location Collection Method / Collectio n Time Received Time / Laterality Volume Impressions 05/28/2014 10:36 PM CDT IMPRESSION: Normal. JOHN MCFARLAND MD Narrative 05/28/2014 10:36 PM CDT CHEST TWO VIEWS ??05/28/2014 10:05 PM HISTORY: Chest pain. COMPARISON: 04/20/2006 Procedure Note John Mcfarland MD - 05/28/2014Form atting of this note might be different from the original. CHEST TWO VIEWS 05/28/2014 10:05 PM HISTORY: Chest pain. COMPARISON: 04/20/2006 IMPRESSION IMPRESSION: Normal. JOHN MCFARLAND MD Yasir Samuel MD IMG DIAGNOSTIC IMAGING ORDER PB TSH with free T4 reflex (05/28/2014 9:30 PM CDT) athologist Signature TSH 2.44 0.40 - 4.00 [facility] Specimen Anatomical Collection Method Collection Time Receive d Time (Source) Location / / Volume Laterality 05/28/2014 9:30 PM 5 9:34 CDT PM CDT Yasir Samuel MD LAB - BLOOD ORDERABLES Performing Organization Address [facility]/ZIP [facility] Phon e Number [place] [address] [place] [id number] [place] [address], [place] [address] 7 Troponin POCT (05/28/2014 9:30 PM CDT) athologist Signature Troponin I 0.00 0.00 - 0.10 POINT OF CARE ug/L TEST, HANDHELD METER Specimen Anatomical Collection Method Collection Time Receive d Time (Source) Location / / Volume Laterality 05/28/2014 9:30 PM 5 9:45 CDT PM CDT Provider Unknown LAB - ENTER/EDIT POCT Performing Organization Address City/[facility]/ZIP [facility] Phon e Number [facility] POINT OF CARE TEST, HANDHELD METER POINT OF CARE TEST, HANDHELD METER Lipase (05/28/2014 9:30 PM CDT) athologist Signature Lipase 271 73 - 393 [facility] Specimen Anatomical Collection Method Collection Time Receive d Time (Source) Location / / Volume Laterality Blood specimen 05/28/2014 9:30 PM 015 9:34 (specimen) CDT PM CDT Yasir Samuel MD LAB - BLOOD ORDERABLES Performing Organization Address City/State/ZIP Code Phon e Number M [facility] [place] [address], [place] [address] [address] 7 Troponin I (05/28/2014 9:30 PM CDT) Patholo gist Method Time Signature Troponin I ES <0.015 0.000 - [place] The 99th percentile for uppe r reference range is 0.045 ug/L. ??Troponin values in 0.045 [facility] the range of 0.045 - 0.120 ug/L may be associated wit h risks of adverse ug/L HOSPITAL clinical events. Effective 09/06/2013, the re ference range for this assay has changed to reflect new instrumentation/methodology. Specimen Anatomical Collection Method Collection Time Receive d Time (Source) Location / / Volume Laterality Blood specimen 05/28/2014 9:30 PM 015 9:34 (specimen) CDT PM CDT Yasir Samuel MD LAB - BLOOD ORDERABLES Performing Organization Address City/State/ZIP Code Phon e [facility] [address], [place] [address] [address] 7 Comprehensive metabolic panel (05/28/2014 9:30 PM CDT) athologist Signature Sodium 141 133 - 144 [place] mmol/L [facility] Potassium 3.4 3.4 - 5.3 [place] mmol/L [facility] Chloride 105 94 - 109 [place] mmol/L [facility] Carbon Dioxide 28 20 - 32 [place] mmol/L [facility] Anion Gap 8 3 - 14 [place] mmol/L [facility] Glucose 93 70 - 99 [place] mg/dL [facility] Urea Nitrogen 22 7 - 30 [place] mg/dL [facility] Creatinine 0.91 0.52 - [facility] 1.04 mg/dL [facility] GFR Estimate 64 >60 [place] mL/min/1.[address] Comment: Non GFR Calc GFR Estimate If Black 77 >60 mL/min/1.7m2 [facility] Comment: GFR Calc Calcium 9.0 8.5 - 10.1 mg/dL [facility] Bilirubin Total 0.3 0.2 - 1.3 mg/dL [facility] Albumin 4.2 3.4 - 5.0 g/dL [facility] Protein Total 7.6 6.8 - 8.8 g/dL [facility] Alkaline Phosphatase 75 40 - 150 U/L [facility] ALT 43 0 - 50 U/L [facility] AST 26 0 - 45 U/L [facility] Specimen Anatomical Collection Method Collection Time Receive d Time (Source) Location / / Volume Laterality Blood specimen 05/28/2014 9:30 PM 015 9:34 (specimen) CDT PM CDT Yasir Samuel MD LAB - BLOOD ORDERABLES Performing Organization Address City/State/ZIP Code Phon e Number [place] [address] [place] [address] [place] [address] [address] [place] [address] 7 CBC with platelets differential (05/28/2014 9:30 PM CDT) [facility] gist Method Time Signature WBC 8.3 4.0 - [place] 11.0 [facility] 10e9/L [facility] RBC Count 5.08 3.8 - 5.2 [place] 10e12/L [facility] Hemoglobin 14.0 11.7 - [place] 15.7 g/dL [facility] Hematocrit 42.5 35.0 - [place] 47.0 % [facility] MCV 84 78 - 100 [facility] MCH 27.6 26.5 - [place] 33.0 pg [facility] MCHC 32.9 31.5 - [place] 36.5 g/dL [facility] RDW 13.1 10.0 - [place] 15.0 % [facility] Platelet Count 271 150 - 450 [place] 10e9/L [facility] Diff Method Automated [facility] % Neutrophils 53.1 % [facility] % Lymphocytes 35.7 % [facility] % Monocytes 7.9 % [facility] % Eosinophils 2.9 % [facility] % Basophils 0.2 % [facility] % Immature 0.2 % [place] Granulocytes [facility] Absolute 4.4 1.6 - 8.3 [place] Neutrophil 10e9/L [facility] Absolute 3.0 0.8 - 5.3 [place] Lymphocytes e/L [facility] Absolute 0.7 0.0 - 1.[address] [place] Monocytes [address] [place] [address] Absolute 0.2 0.0 - 0.7 [place] Eosinophils [address] [place] [address] Absolute 0.0 0.0 - 0.2 [place] Basophils [address] [place] [address] Abs Immature 0.0 0 - 0.4 [place] Granulocytes [address] [place] [address] Specimen Anatomical Collection Method Collection Time Receive d Time (Source) Location / / Volume Laterality Blood specimen 05/28/2014 9:30 PM 015 9:34 (specimen) CDT PM CDT Yasir Samuel MD LAB - BLOOD ORDERABLES Performing Organization Address City/State/ZIP [facility] Phon e Number [place] [address] [place] [address] [address] [place] [address] 7 EKG 12 lead (05/28/2014 9:27 PM CDT) [facility] gist Method Time Signature Interpretation ECG Click View RADIOLOGY Image link RESULTS to view waveform and result Specimen (Source) Anatomical Collection Method Collection Time Re ceived Time Location / / Volume Laterality 05/28/2014 9:27 PM CDT Broderick Disla MD ECG ORDERABLES Performing Organization Address City/State/[facility] Phon e Number RADIOLOGY RESULTS documented in this encounter Visit Diagnoses Diagnosis Chest pain Chest pain, unspecified documented in this encounter Administered Medications Inactive Administered Medications - up to 3 most recent administrations Medication Order MAR Action Action Date Dose Rate Site 0.9% sodium chloride BOLUS New Bag 05/28/2014 9:37 PM CDT 1,000 mLs 1000 mL/hr Intravenous, 1,000 mL, ONCE, at 1,000 mL/hr, Administer over 1 Hours, On Wed05/28/14 at 2133, For 1 dose aspirin chewable tablet 162 mg Given 05/29/2014 1:02 AM CDT 162 mg 162 mg, Oral, ONCE, On Wed05/28/14 at 2325, For 1 dose, If not given in ED or by EMS nitroglycerin (NITROSTAT) SL tablet 0.4 mg Given 05/28/2014 9:37 PM CDT 0.4 mg 0.4 mg, Sublingual, EVERY 5 MIN PRN, chest pain, Starting on Wed05/28/14 at 2132, For 3 doses sodium chloride (PF) 0.9% PF flush 3 mL Given 05/29/2014 1:04 AM CDT 3 mLs 3 mL, Intracatheter, EVERY 8 HOURS, First dose on Wed05/28/14 at 2325, And Q1H PRN, to lock peripheral IV dormant line. documented in this encounter Active and Recently Administered Medications Times are shown in CDT. Scheduled Medication Order 05/27/2014 05/28/2014 05/29/2014 0.9% sodium chloride BOLUS (COMPLETED) 2 137 (New Bag - Provider: Shalini Barajas RN)2241 (Stopped - Provider: Shalini Barajas RN) Intravenous, 1,000 mL, ONCE, at 1,000 mL /hr, for 1 Hours, Wed05/28/14 at 2133, For 1 dose aspirin chewable tablet 162 mg (COMPLETED) 0102 (Given - Provider: Silvina Titus RN) 162 mg, Oral, ONCE, Wed05/28/14 at 2325, For 1 dose, If not given in ED or by EMS sodium chloride (PF) 0.9% PF flush 3 mL (CANCELED) 0104 (Given - Provider: Silvina Titus RN)0725 (Canceled Entry - Provider: Orders Generic Provider - Comment: Automatically canceled at discontinue of medication order) 3 mL, Intracatheter, EVERY 8 HOURS, Firs t dose on Wed05/28/14 at 2325, And Q1H PRN, to lock peripheral IV dormant line. PRN Medication Order 05/27/2014 05/28/2014 05/29/2014 nitroglycerin (NITROSTAT) SL tablet 0.4 mg (CANCELED) 2136 (Given - Provider: Shalini Barajas RN) 0.4 mg, Sublingual, EVERY 5 MIN PRN, steven st pain, Starting Wed05/28/14 at 2132, For 3 doses documented in this encounter Care Teams Track Repair Person Relationship Specialty Start Date End Date Kleber Ledesma, PCP - General Physician Senior Market Research Analyst - 05/15/14 PA-C Medical documented as of this encounter
--- OUTSIDE RECORDS SUMMARY | 2022-01-05 11:39 | XMS_ITS | Encounter Summary ---
:1960 Author Organization [place] Address [address] [place] [id number] Care Team Providers Name Role Phone Tashi Paredes MD Primary Care Provider Yaima William MD Primary Care Provider Kleber Ledesma PA-C Primary Care Provider [phone] Encounter Details Date Type Department Care Team Description 04/21/2006 Historic Results [facility] Unknown, [address] [place] [address] Social History Tobacco Use Types Packs/Day Years Used Date Smoking Tobacco: Never Alcohol Use Standard Drinks/Week Comments Yes 0 (1 standard drink = 0.6 oz pure alcoho l) very casual Sex Assigned at Date Recorded Not on file documented as of this encounter Plan of Treatment Not on filedocumented as of this encounter Procedures Procedure Name Priority Date/Time Associated Diagnosis Comme nts ECHO CARDIAC - HIM SCAN 04/21/2006 12:00 AM CDT - ARCHIVE documented in this encounter Results ECHO CARDIAC - HIM SCAN - ARCHIVE (04/21/2006 12:00 AM CDT) Anatomical Region Laterality Modality Echocardiography Specimen (Source) Anatomical Location Collection Method / Collectio n Time Received Time / Laterality Volume 04/21/2006 Narrative This result has an attachment that is no t available. Provider Scan CV ECHO ORDERABLES documented in this encounter Visit Diagnoses Not on filedocumented in this encounter Care Teams Laundry Clerk Relationship Specialty Start Date End Date Tashi Paredes MD PCP - General 04/14/04 12/01/11 [address] [place] [address] Yaima William MD PCP - General 12/02/11 05/14/14 Kleber Ledesma, PCP - General Physician Event Promotions Coordinator - 05/15/14 PAKerrie Medical documented as of this encounter
--- OUTSIDE RECORDS SUMMARY | 2022-01-05 11:39 | XMS_ITS | Encounter Summary ---
:1960 Author Organization [facility] Address [address] [place] [address] Care Team Providers Name Role Phone Tashi Paredes MD Primary Care Provider Encounter Details Date Type Department Care Team Description 05/10/2004 Historic Results INTERFACED REPORT Marcus Chiang MD [facility] [address] [place], [place] [address] (Wo rk) Social History Tobacco Use Types [...] Priority Date/Time Associated Comments Diagnosis TROPONIN I STAT 05/10/2004 10:50 Results for this AM VOCATIONAL TECHNICAL EDUCATION DIRECTOR procedure are i n the results section. HEMOGRAM DIFFERENTIAL STAT 05/10/2004 10:50 Re sults for this AND PLATELET AM VOCATIONAL TECHNICAL EDUCATION DIRECTOR procedure are i n the results section. LIPASE STAT 05/10/2004 10:50 Results for this AM VOCATIONAL TECHNICAL EDUCATION DIRECTOR procedure are i n the results section. COMPREHENSIVE STAT 05/10/2004 10:50 Results fo r this METABOLIC PANEL AM VOCATIONAL TECHNICAL EDUCATION DIRECTOR procedure ar e in the results section. documented in this encounter Results Hemogram differential and platelet (05/10/2004 10:50 AM VOCATIONAL TECHNICAL EDUCATION DIRECTOR) [facility] Method Time Signature MCV 80 78 - 100 [facility] fl MCH 26.5 26.5 - MISYS 33.0 pg MCHC 33.0 32.0 - MISYS 36.0 g/dL RDW 12.0 10.0 - MISYS 15.0 % WBC 6.9 4.0 - MISYS 11.0 10e9/L RBC Count 4.99 3.8 - 5.2 MISYS 10e12/L Hemoglobin 13.2 11.7 - MISYS 15.7 g/dL Hematocrit 40.1 35.0 - MISYS 47.0 % % Neutrophils 60 40 - 75 % MISYS % Lymphocytes 30 20 - 48 % MISYS % Monocytes 8 0 - 12 % MISYS % Eosinophils 2 0 - 6 % MISYS % Basophils 0 0 - 2 % MISYS Platelet Count 326 150 - 450 MIS[facility] 10e9/L Absolute 4.2 1.6 - 8.3 MISYS Neutrophil 10e9/L Absolute 2.1 0.8 - 5.3 MISYS Lymphocytes 10e9/L Absolute 0.5 0.0 - 1.3 MIS[facility] Monocytes 10e9/L Absolute 0.1 0.0 - 0.7 MIS[facility] Eosinophils 10e9/L Absolute 0.0 0.0 - 0.2 [facility]IS[facility] Basophils 10e9/L Diff Method Automated M[facility] Method Specimen Anatomical Collection Method Collection Time Receive d Time (Source) Location / / Volume Laterality 05/10/2004 10:50 05/10/2004 AM VOCATIONAL TECHNICAL EDUCATION DIRECTOR 10:30 AM VOCATIONAL TECHNICAL EDUCATION DIRECTOR Marcus Chiang MD LAB - BLOOD ORDERABLES Performing Organization Address City/State/ZIP Code Phon e Number MISYS Comprehensive metabolic panel (05/10/2004 10:50 AM VOCATIONAL TECHNICAL EDUCATION DIRECTOR) P athologist Signature Sodium 141 133 - 144 [facility] mmol/L Potassium 3.9 3.4 - 5.3 [facility] mmol/L Chloride 103 94 - 109 [place] mmol/L Carbon Dioxide 28 20 - 32 [place] mmol/L Glucose 93 60 - 110 [place] mg/dL Urea Nitrogen 10 5 - 24 [facility] mg/dL Creatinine 1.00 0.60 - [facility] 1.30 mg/dL GFR Estimate 64 >60 [facility] mL/min/1.7 m2 GFR Estimate If 77 >60 [facility] Black mL/min/1.7 m2 Calcium 8.9 8.5 - 10.4 [facility] mg/dL AST 24 0 - 45 U/L M[facility] Protein Total 7.7 6.0 - 8.2 [facility] g/dL Anion Gap 11 6 - 17 [place] mmol/L Albumin 4.0 3.3 - 4.6 [facility] g/dL ALT 38 0 - 50 U/L M[facility] Alkaline 66 40 - 150 [facility] Phosphatase U/L Bilirubin Total 0.4 0.2 - 1.3 [facility] mg/dL Specimen Anatomical Collection Method Collection Time Receive d Time (Source) Location / / Volume Laterality 05/10/2004 10:50 05/10/2004 AM VOCATIONAL TECHNICAL EDUCATION DIRECTOR 10:30 AM VOCATIONAL TECHNICAL EDUCATION DIRECTOR Marcus Chiang MD LAB - BLOOD ORDERABLES Performing Organization Address City/State/ZIP Code Phon e Number MISYS Lipase (05/10/2004 10:50 AM VOCATIONAL TECHNICAL EDUCATION DIRECTOR) athologist Signature Lipase 61 20 - 250 U/L MIS[facility] Specimen Anatomical Collection Method Collection Time Receive d Time (Source) Location / / Volume Laterality 05/10/2004 10:50 05/10/2004 AM VOCATIONAL TECHNICAL EDUCATION DIRECTOR 10:30 AM VOCATIONAL TECHNICAL EDUCATION DIRECTOR aMrcus Chiang MD LAB - BLOOD ORDERABLES Performing Organization Address City/[facility] Code Phon e Number MISYS Troponin I (05/10/2004 10:50 AM VOCATIONAL TECHNICAL EDUCATION DIRECTOR) P athologist Signature Troponin I <0.07 0.00 - 0.40 [facility]IS[facility] ug/L Specimen Anatomical Collection Method Collection Time Receive d Time (Source) Location / / Volume Laterality 05/10/2004 10:50 05/10/2004 AM VOCATIONAL TECHNICAL EDUCATION DIRECTOR 10:30 AM VOCATIONAL TECHNICAL EDUCATION DIRECTOR Marcus Chiang MD LAB - BLOOD ORDERABLES Performing Organization Address [facility] Phon e Number MISYS documented in this encounter Visit Diagnoses Not on filedocumented in this encounter Care Teams Heat Treater Head Relationship Specialty Start Date End Date Tashi Paredes MD PCP - General 04/14/04 12/01/11 [address] [id number] documented as of this encounter
--- OUTSIDE RECORDS SUMMARY | 2022-01-05 11:39 | XMS_ITS | Encounter Summary ---
:1960 Author Organization [facility] Address [address] [place] [address]. [place] [address] Care Team Providers Name Role Phone Kleber Ledesma PA-C Primary Care Provider [phone] Reason for Visit Reason Comments ER F/U Health Maintenance All health maintenance pende d (ACT and AAP due) Encounter Details Date Type Department Care Team Description 05/30/2014 Office Visit [facility] Kleber Ledesma S [facility] RACHNA Valderrama ENCOUNTER--DISREGARD [place] [address] [address] [facility] (Primary Dx) [address], [address] [place] [address] [place], [place] [phone] (Wo rk) [phone] [phone] Social History Tobacco Use Types Packs/Day Years Used Date Smoking Tobacco: Former Smokeless Tobacco: Never Alcohol Use Standard Drinks/Week Comments Yes 0 (1 standard drink = 0.6 oz pure alcoho l) very casual Sex Assigned at Date Recorded Not on file documented as of this encounter Progress Notes Kleber Ledesma PA-C - 06/03/2014 8:46 AM CDT This encounter was opened in error. Please disregard. documented in this encounter Plan of Treatment Not on filedocumented as of this encounter Visit Diagnoses Diagnosis ERRONEOUS ENCOUNTER--DISREGARD - Primary documented in this encounter Care Teams Sales And Marketing Analyst Relationship Specialty Start Date End Date Ledesma, Kleber Jannie, PCP - General Physician Boiler Tester - 05/15/14 PA-C Medical documented as of this encounter
--- OUTSIDE RECORDS SUMMARY | 2022-01-05 11:39 | XMS_ITS | Encounter Summary ---
:1960 Author Organization [facility] Address [address] [place] [address] Care Team Providers Name Role Phone Tashi Paredes MD Primary Care Provider Encounter Details Date Type Department Care Team Description 05/10/2004 Emergency room Marcus Moffett Ma, MD EMERGENCY PHYSIC [facility] [address] [facility] [address] [place], [place] [address] (Wo rk) Social History Tobacco Use Types Packs/Day Years Used Date Smoking Tobacco: Never Alcohol Use Standard Drinks/Week Comments Yes 0 (1 standard drink = 0.6 oz pure alcoho l) very casual Sex Assigned at Date Recorded Not on file documented as of this encounter Progress Notes Андрей Marcus Torres - 05/10/2004 11:59 PM TOOL PROCUREMENT COORDINATOR : 1960 CHIEF COMPLAINT: Chest pain. HISTORY OF PRESENT ILLNESS: This is a 44-year-old female who has had lower chest pain, feeling of a sense of shortness of breath. She says the feeling of shortness of breath hospitalized really been there kind of since . She had a laparoscopic cholecystectomy by Dr. Carroll on Wednesday and since then she has been kind of not feeling right. It seems like her dizziness kind of worsens when she sits up, but when she lays back she gets more pain across her lower chest. She is slightly nauseated. The pain radiates into her back. She does not have vomiting. No fevers. She has been taking Darvocet, but they thought that might be causing this, so she stopped that on Thursday. So, she has been without the pain medication, and now the pain seemed to have worsened. It does not really seem to change with respiration. PAST MEDICAL HISTORY: The laparoscopic cholecystectomy as stated above. She has had chest pain before and had a stress test that was negative. MEDICATIONS: None at this time. ALLERGIES: NONE. REVIEW OF SYMPTOMS: All systems are negative except for that stated above. SOCIAL HISTORY: She is . She is here with her . She lives in [place]. She works at [employer]. PHYSICAL EXAM: Temperature 96.6, pulse 79, respirations 20, blood pressure 164/82, pulse oximetry 99%. The patient is alert, cooperative, and in no respiratory distress. EYES: Pupils are equal, round, and reactive to light. Conjunctiva is clear. Lids are not swollen. OROPHARYNX: Moist mucous membranes without erythema or lesion. NECK is supple. No adenopathy. Trachea is midline. No stridor. BACK: Nontender. No CVA tenderness. CHEST: Symmetric chest rise with inspiration. No sign of labored breathing. Nontender to palpation. LUNGS are clear to auscultation. No rubs, rales, rhonchi, or wheeze. CARDIOVASCULAR: Regular rate and rhythm without murmur. ABDOMEN: Her wound seems to be healing well with no sign of infection. She has some tenderness in the epigastric region, maybe slightly to the right upper quadrant. No rebound or guarding. It does not appear severe or even moderate. EXTREMITIES: No clubbing, cyanosis, or edema. No CALF tenderness or tenderness behind her KNEES. SKIN is well perfused. No rashes. She has a negative Homans sign. NEUROLOGIC exam: Nonfocal. EMERGENCY DEPARTMENT COURSE: Because of her pain syndrome in the chest, I did an electrocardiogram that showed a normal sinus rhythm with no ST-T wave abnormality. No tachycardia, her heart rate was in the 70's. Because she just had recent surgery I felt that she needed a PE workup. I did not think a D-dimer would be helpful, so I felt that I needed to go on with more diagnostic studies, so I ordered a CT scan with contrast for that. She also had a CT scan of her abdomen, looking for any sign of inflammation. I ordered up some blood work as well. I did give her some Zofran. I offered her morphine, but she really did not want anything, so she did have the Zofran, which seemed to help but kind of made her a little dizzy. She seems to be real sensitive to medication. Her CBC showed a white count of 6.9, so that was good. Hemoglobin 13, hematocrit 40, platelet count of 326, completely normal. Her chemistry panel and liver function tests were normal. Troponin was negative. Lipase was negative. So these were all reassuring. The CT scan of her chest showed no evidence of PE with some minimal subsegmental atelectasis in the posterior bases, which I think is more splinting. Her abdomen and pelvic CT showed just a minimal free fluid in the pelvis and mild dilatation of the small bowel and probably a mild paralytic ileus, and that were the only findings documented by Dr. Mcgee. So, at that point I discussed the results with the patient, and I also discussed with Dr. Regalado who referred her here, and I set her up for discharge. Dr. Regalado felt that this was good, and she could follow up with Dr. Carroll. CLINICAL IMPRESSION: Chest pain with dyspnea after surgery. CLINICAL PLAN: She is to push fluids. She is to use Zofran, 4 mg ODT every six hours if needed for nausea. She can continue the Darvocet. She is to call Dr. Carroll if she is not better by Wednesday, otherwise if she has increasing pain, fever, or other symptoms she is to return to the emergency room. [id number]_ MARCUS MOFFETT MD MT: Document: [id number] [place], [place] Name: MR#: MICAH SCOTT -[id number] EMERGENCY ROOM ENCOUNTER Page 3 of 2 LCN: ERA DSC: 05/10/2004 [place], [place] Name: MR#: MICAH SCOTT -[id number] : Admit Date: Account #: 1960 05/10/2004 [id number] Doctor: MARCUS MOFFETT MD EMERGENCY ROOM ENCOUNTER Page 1 of 2 documented in this encounter Plan of Treatment Not on filedocumented as of this encounter Visit Diagnoses Not on filedocumented in this encounter Care Teams Recreation Manager Relationship Specialty Start Date End Date Tashi Paredes MD PCP - General 04/14/04 12/01/11 [address] [id number] documented as of this encounter
--- OUTSIDE RECORDS SUMMARY | 2022-01-05 11:39 | XMS_ITS | Encounter Summary ---
:1960 Author Organization [facility] Address [address] [place] [address] Care Team Providers Name Role Phone Tashi Paredes MD Primary Care Provider Encounter Details Date Type Department Care Team Description 06/21/2005 Orders Only [facility] Tashi Paredes MD ASTHMA - MODERATE Clinic [place] [address] PERSISTENT (Primary [address] [place] [address] Dx) [place], [place] [id number] [phone] Social History Tobacco Use Types Packs/Day Years Used Date Smoking Tobacco: Never Alcohol Use Standard Drinks/Week Comments Yes 0 (1 standard drink = 0.6 oz pure alcoho l) very casual Sex Assigned at Date Recorded Not on file documented as of this encounter Plan of Treatment Not on filedocumented as of this encounter Procedures Procedure Name Priority Date/Time Associated Diagnosis Comme nts ASTHMA ACTION PLAN Routine 06/21/2005 4:32 PM CDT Asthma - Mod erate Persistent documented in this encounter Visit Diagnoses Diagnosis Moderate persistent asthma - Primary Unspecified asthma documented in this encounter Care Teams Boarder Hand Relationship Specialty Start Date End Date Tashi Paredes MD PCP - General 04/14/04 12/01/11 [address] [id number] documented as of this encounter
--- OUTSIDE RECORDS SUMMARY | 2022-01-05 11:39 | XMS_ITS | Encounter Summary ---
:1960 Author Organization [facility] Address [address] [place] [address] Care Team Providers Name Role Phone Tashi Paredes MD Primary Care Provider Reason for Visit Reason Onset Date Comments Cough 12/30/2004 Encounter Details Date Type Department Care Team Description 12/30/[address] [facility] Adelita Paredes MD Cough [place] [address] [phone] Social History Tobacco Use Types Packs/Day Years Used Date Smoking Tobacco: Never Alcohol Use Standard Drinks/Week Comments Yes 0 (1 standard drink = 0.6 oz pure alcoho l) very casual Sex Assigned at Date Recorded Not on file documented as of this encounter Miscellaneous Notes Telephone Encounter - Shakila Pulido - 12/30/2004 9:55 AM CST Amie has been seen twice in the last couple of weeks for a cough and asthma symptoms. She states she isn't getting any better and feels something different needs to be done. She is taking the advair bid and using her albuterol inhaler q 4hours and still having a tight cough. She states she has been having trouble for the last 5 years. She states she hasn't actually been evaluated for asthma and hasn't ever had peak flows or spirometry done. I scheduled her for a f/u with to evaluate these symptoms. Shakila Pulido RN ISTRY ACCOUNT MANAGER documented in this encounter Plan of Treatment Not on filedocumented as of this encounter Visit Diagnoses Not on filedocumented in this encounter Care Teams Elevator Erector Helper Relationship Specialty Start Date End Date Tashi Paredes MD PCP - General 04/14/04 12/01/11 [address] [phone] documented as of this encounter
--- OUTSIDE RECORDS SUMMARY | 2022-01-05 11:39 | XMS_ITS | Encounter Summary ---
:1960 Author Organization [facility] Address [address] [place] [address]. [place] [address] Care Team Providers Name Role Phone Tashi Paredes MD Primary Care Provider Reason for Visit Reason Comments Cough continue coughing, saw Dr Paredes for this issue, does not feel better or good. Chest Pain centre chest pain, very pain full, gets them in episodes. Encounter Details Date Type Department Care Team Description 12/25/[address] [facility] Karthik Meek ASTHMA - MODERATE PERSISTENT (Primary Dx); Clinic [place] MD Ajit VACCINE FOR INFLUENZA; [address] [facility] PAINFUL RESPIRATION; [place], [place] [address] [facility] ISSUE IN DICAL CERTIFICAT [phone] [address] [place], [place] [id number] Social History Tobacco Use Types Packs/Day Years Used Date Smoking Tobacco: Never Alcohol Use Standard Drinks/Week Comments Yes 0 (1 standard drink = 0.6 oz pure alcoho l) very casual Sex Assigned at Date Recorded Not on file documented as of this encounter Last Filed Vital Signs Vital Sign Reading Time Taken Comments Blood Pressure 130/78 12/25/2004 6:00 PM TEACHER OF THE HEARING IMPAIRED Pulse - - Temperature - - Respiratory Rate - - Oxygen Saturation - - Inhaled Oxygen Concentration - - Weight 65.3 kg (144 lb) 12/25/2004 6:00 PM TEACHER OF THE HEARING IMPAIRED Height - - Body Mass Index 26.34 05/05/2004 3:30 PM TEACHER OF THE HEARING IMPAIRED documented in this encounter Progress Notes Karthik Meek W - 12/28/2004 8:24 PM CST Micah Scott, a 44 year old female scheduled an appointment to discuss these issues: Please referto Note section below for further subjective details. ASTHMA - MODERATE PERSISTENT VACCINE FOR INFLUENZA PAINFUL RESPIRATION ISSUE MEDICAL CERTIFICAT Medical, surgical, family and social histories all reviewed and updated. ROS: CONSTITUTIONAL:arthralgias RESP:dyspnea on exertion BP 130/78 Wt 144 lbs (65.3kg) EXAM: GENERAL APPEARANCE: alert and mild distress HENT: ear canals and TM's normal, nose and mouth without ulcers or lesions and nasal mucosa edematous without rhinorrhea RESP: expiratory wheezes CV: regular rates and rhythm, normal S1 S2, no S3 or S4 and no murmur, click or rub MS: extremities normal- no gross deformities noted 493.A5 ASTHMA - MODERATE PERSISTENT (primary encounter diagnosis) Note: need systemic steroids, Plan: CHEST X-RAY 2 VW, ROBITUSSIN A-C 10-100 MG/5ML OR SYRP, ALBUTEROL 90 MCG/ACT IN AERS, ALBUTEROL 90 MCG/ACT IN AERS, FLU VACCINE, 3 YRS +, IM, ALBUTEROL SULFATE 0.083 % IN NEB V04.81 VACCINE FOR INFLUENZA Note: hi risk Plan: 786.52 PAINFUL RESPIRATION Note: pleuritic component Plan: MEDROL (AUSTEN) 4 MG OR TABS, CHEST X-RAY 2 VW, VICODIN 5-500 MG OR TABS V68.0 ISSUE MEDICAL CERTIFICAT Note: no work x1 d Plan: written HER OF THE HEARING IMPAIRED documented in this encounter Nursing Notes 12/25/2004 6:00 PM CST >> YUDI EDWARDS 12/25/2004 7:27 pm The following medication was given MEDICATION:Influenza ROUTE:IM SITE:Left Deltoid TIRE BUILDER:[employer] LOT #:[id number] EXPIRATION:08/07/05 *No allergy to eggs or thimerosal. *No serious reaction to previous flu shots. *No history of Guillain-Cayuga Syndrome. *No severe or moderate illness or fever today. *Not currently . Yudi Edwards MA >> YUDI EDWARDS 12/25/2004 6:12 pm Micah Scott presents for continue coughing, saw Dr Paredes for this issue, does not feel better or good. centre chest pain, very painfull, gets them in episodes. Initial BP 130/78 Wt 144 lbs (65.3kg) Estimated Body Mass Index is 26.33 kg/(m^2) as calculated from: Height of 5' 2 (1.575m) as of 05/05/04 Weight of 144 lbs (65.318 kg) as of this encounter. BP completed using cuff size: regular Eshna Jerry CASTAÑEDA documented in this encounter Plan of Treatment Not on filedocumented as of this encounter Procedures Procedure Name Priority Date/Time Associated Diagnosis Comme nts HC CHEST TWO VIEWS, Routine 12/25/2004 Asthma - Moderate Res ults for this FRONT/LAT Persistent procedure are in the Painful Respiration results section. documented in this encounter Results CHEST X-RAY 2 VW (12/25/2004) Anatomical Region Laterality Modality Other Impressions 12/25/2004 REPORT OF OUTSIDE FILMS FROM [facility] ??CLINIC MICAH SCOTTFrank ?: 58 PA AND LEFT LATERAL CHEST: ??12/25/04 FINDINGS: ?? Normal for age. Minor right argueta scoliosis and mildly increased dorsal kyphosis. Syed Pantoja M.D./sami D & T: ??12/29/04 Ordering MD/Provider Initial Interpretat ion: Normal/Negative. Electronically filed by Pauline Gamboa ??12/26/2004 ??9:52 AM Karthik Meek MD GENERAL IMAGING documented in this encounter Visit Diagnoses Diagnosis Moderate persistent asthma - Primary Unspecified asthma Need for prophylactic vaccination and in oculation against influenza Painful respiration Issue of medical certificates documented in this encounter Care Teams Player Development Executive Relationship Specialty Start Date End Date Tashi Paredes MD PCP - General 04/14/04 12/01/11 [address] [phone] documented as of this encounter
--- OUTSIDE RECORDS SUMMARY | 2022-01-05 11:39 | XMS_ITS | Encounter Summary ---
:1960 Author Organization [facility] Address [address] [place] [address] Care Team Providers Name Role Phone Tashi Paredes MD Primary Care Provider Encounter Details Date Type Department Care Team Description 04/20/[address] [facility] Antonio Alvares MD Hospital Results EMERGENCY PH[facility] [facility] [address] [facility] [address] [place], [place] [address] (Wo rk) Social History Tobacco Use Types Packs/Day Years Used Date Smoking Tobacco: Never Alcohol Use Standard Drinks/Week Comments Yes 0 (1 standard drink = 0.6 oz pure alcoho l) very casual Sex Assigned at Date Recorded Not on file documented as of this encounter Plan of Treatment Not on filedocumented as of this encounter Procedures Procedure Name Priority Date/Time Associated Diagnosis Comme [facility] CHEST ONE VIEW Routine 04/20/2006 12:36 PM Res ults for this CDT procedure are i n the results section. documented in this encounter Results CHEST X-RAY 1 VW (04/20/2006 12:36 PM CDT) Anatomical Region Laterality Modality Other Specimen (Source) Anatomical Collection Method Collection Time Re ceived Time Location / / Volume Laterality 04/20/2006 12:36 PM CDT Impressions 04/20/2006 2:41 PM CDT EXAM: ??CHEST 1VIEW PORTABLE HISTORY: ??Chest Pain, ?? FINDINGS: Negative. Antonio Li MD GENERAL IMAGING documented in this encounter Visit Diagnoses Not on filedocumented in this encounter Care Teams Electrode Turner And Finisher Relationship Specialty Start Date End Date Tashi Paredes MD PCP - General 04/14/04 12/01/11 [address] [phone] documented as of this encounter
--- OUTSIDE RECORDS SUMMARY | 2022-01-05 11:40 | XMS_ITS ---
:1960 Author Care Team Providers Name Role Phone DR. MILTON NG Referring Provider [phone] Allergies Code Code System Name Reaction Severity Status Onset NKDA ? Medications Name Status Start Date Stop Date ? ? albuterol sulfate 2.5 mg/3 mL (0.083 %) solution for Active ? Not available nebulization amoxicillin 500 mg capsule Completed ? 12/05 amoxicillin 875 mg-potassium clavulanate 125 mg tablet Completed ? 12/05/2018 atenolol 50 mg-chlorthalidone 25 mg tablet Active ? Not available azithromycin 250 mg tablet Completed ? 12/05 benzonatate 100 mg capsule Completed ? 12/05 citalopram 10 mg tablet Completed ? 12/06/19 19 citalopram 20 mg tablet Active ? Not avai lable dicyclomine 20 mg tablet Active ? Not re ilable prednisone 20 mg tablet Completed ? 12/06/19 19 simvastatin 20 mg tablet Active ? Not re ilable Ventolin HFA 90 mcg/actuation aerosol inhaler Active ? Not available Problems Name Status Onset Date Source ? Tension-type Headache Active 12/06/2018 ? 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 Myofascial Pain Active 12/06/2018 ? Arthralgia of Temporomandibular Joint Active 12/06/2018 ? Procedures Date Name Performed by ? ? Incision of Gallbladder Information not available 12/12/2018 CT, Temporal Bone, W/o Contrast Rayus Ra diology [place] [address] [place] [address] (Work Place) Results Lab Results Date Name Specimen Result Interpretation Description Value Range Status Address ? ? Oral Appliance ? Type of mandibular ? ? [place]: [address]liance [address] , [place] Past Encounters None recorded. Social History Tobacco Smoking Status Former Smoker Vaccine List Vaccine Type influenza, injectable, quadrivalent 10/09/2018 Plan of Care Reminders Provider Appointments None recorded. ? ? Lab None recorded. ? ? Referral None recorded. ? ? Procedures None recorded. ? ? Surgeries None recorded. ? ? Imaging None recorded. ? ? Vitals 12/26/2018 02:00PM SPLINT INSERT Height Weight BMI Blood Pressure 5 ft 2 in 140 lbs 25.6 kg/m2 134/81 mm[Hg] 12/05/2018 01:00PM NEW PATIENT 60 Height Weight BMI Blood Pressure 5 ft 2 in 40 lbs 7.3 kg/m2 129/70 mm[Hg]
--- OUTSIDE RECORDS SUMMARY | 2022-01-05 11:40 | XMS_ITS | Encounter Summary ---
:1960 Author Organization [place] Address [address] [place] [address] Care Team Providers Name Role Phone Tashi Paredes MD Primary Care Provider Yaima William MD Primary Care Provider Kleber Ledesma PA-C Primary Care Provider [phone] Encounter Details Date Type Department Care Team Description 09/05/2001 Historic Results [facility] Heart Unknown, [address] [place] [address] Social History Tobacco Use Types Packs/Day Years Used Date Smoking Tobacco: Never Assessed Sex Assigned at Date Recorded Not on file documented as of this encounter Plan of Treatment Not on filedocumented as of this encounter Procedures Procedure Name Priority Date/Time Associated Diagnosis Comme nts ECHO CARDIAC - HIM SCAN 09/05/2001 12:00 AM CDT - ARCHIVE documented in this encounter Results ECHO CARDIAC - HIM SCAN - ARCHIVE (09/05/2001 12:00 AM CDT) Anatomical Region Laterality Modality Echocardiography Specimen (Source) Anatomical Location Collection Method / Collectio n Time Received Time / Laterality Volume 09/05/2001 Narrative This result has an attachment that is no t available. Provider Scan CV ECHO ORDERABLES documented in this encounter Visit Diagnoses Not on filedocumented in this encounter Care Teams Procurement Specialist Relationship Specialty Start Date End Date Tashi Paredes MD PCP - General 04/14/04 12/01/11 [address] [id number] Yaima William MD PCP - General 12/02/11 05/14/14 Kleber Ledesma, PCP - General Physician Sheeter Waxer Operator - 05/15/14 [facility] documented as of this encounter
--- OUTSIDE RECORDS SUMMARY | 2022-01-05 11:40 | XMS_ITS | Encounter Summary ---
:1960 Author Organization [facility] Address [address] [place] [address] Care Team Providers Name Role Phone Tashi Paredes MD Primary Care Provider Reason for Referral Specialty Diagnoses / Procedures Referred By Contact Refer red To Contact Tashi Paredes MD [address] [place] [address] Referral ID Status Reason Start Date Expiration Date Visits Requ ested Visits Authorized N WORKER Encounter Details Date Type Department Care Team Description 04/24/2004 Orders Only [facility] Tashi Paredes MD DIAGNOSIS NOT YET Clinic [address] DEFINED (Primary Dx) [address] [place] [address] [id number] Social History Tobacco Use Types Packs/Day Years Used Date Smoking Tobacco: Never Alcohol Use Standard Drinks/Week Comments Yes 0 (1 standard drink = 0.6 oz pure alcoho l) very casual Sex Assigned at Date Recorded Not on file documented as of this encounter Plan of Treatment Not on filedocumented as of this encounter Procedures Procedure Name Priority Date/Time Associated Diagnosis Comme nts ZZ CONSULT SURGERY Routine 04/24/2004 DIAGNOSIS NOT YET D EFINED documented in this encounter Results CONSULT SURGERY (04/24/2004) Specimen (Source) Anatomical Location Collection Method / Collectio n Time Received Time / Laterality Volume 04/24/2004 Narrative This result has an attachment that is no t available. Tashi Paredes MD REFERRAL documented in this encounter Visit Diagnoses Diagnosis DIAGNOSIS NOT YET DEFINED - Primary documented in this encounter Care Teams Trademark Affixer Relationship Specialty Start Date End Date Tashi Paredes MD PCP - General 04/14/04 12/01/11 [address] [id number] documented as of this encounter
--- OUTSIDE RECORDS SUMMARY | 2022-01-05 11:40 | XMS_ITS | Encounter Summary ---
:1960 Author Organization [place] Address [address] [place] [address]. [place] [address] Care Team Providers Name Role Phone Tashi Paredes MD Primary Care Provider Encounter Details Date Type Department Care Team Description 05/07/2004 Historic Results INTERFACED REPORT Nate Ferguson MD SURGICAL CONSULT ANTS PA [address] [place], [place] [id number] Social History Tobacco Use Types Packs/Day Years Used Date Smoking Tobacco: Never Alcohol Use Standard Drinks/Week Comments Yes 0 (1 standard drink = 0.6 oz pure alcoho l) very casual Sex Assigned at Date Recorded Not on file documented as of this encounter Plan of Treatment Not on filedocumented as of this encounter Procedures Procedure Name Priority Date/Time Associated Comments Diagnosis BILIRUBIN TOTAL Routine 05/07/2004 2:45 PM Result s for this CLEANING LABORER procedure are i n the results section. AST Routine 05/07/2004 2:45 PM Results f or this CLEANING LABORER procedure are i n the results section. AMYLASE Routine 05/07/2004 2:45 PM Results f or this CLEANING LABORER procedure are i n the results section. ALKALINE PHOSPHATASE Routine 05/07/2004 2:45 PM R esults for this CLEANING LABORER procedure are i n the results section. HISTOPATHOLOGY Routine 05/07/2004 12:00 Results f or this AM CLEANING LABORER procedure are i n the results section. documented in this encounter Results Alkaline phosphatase (05/07/2004 2:45 PM CLEANING LABORER) P athologist Signature Alkaline 56 40 - 150 MISYS Phosphatase U/L Specimen Anatomical Collection Method Collection Time Receive d Time (Source) Location / / Volume Laterality 05/07/2004 2:45 PM 5 4:56 CLEANING LABORER PM CLEANING LABORER Sandra Ferguson MD LAB - BLOOD ORDERABLES Performing Organization Address [facility] Code Phon e Number MISYS Amylase (05/07/2004 2:45 PM CLEANING LABORER) athologist Signature Amylase 40 30 - 110 U/L MISYS Specimen Anatomical Collection Method Collection Time Receive d Time (Source) Location / / Volume Laterality 05/07/2004 2:45 PM 5 4:56 CLEANING LABORER PM CLEANING LABORER Sandra Ferguson MD LAB - BLOOD ORDERABLES Performing Organization Address [facility] Phon e Number MISYS AST (05/07/2004 2:45 PM CLEANING LABORER) athologist Signature AST 39 0 - 45 U/L MISYS Specimen Anatomical Collection Method Collection Time Receive d Time (Source) Location / / Volume Laterality 05/07/2004 2:45 PM 5 4:56 CLEANING LABORER PM CLEANING LABORER Sandra Ferguson MD LAB - BLOOD ORDERABLES Performing Organization Address [facility] Phon e Number MISYS Bilirubin total (05/07/2004 2:45 PM CLEANING LABORER) athologist Signature Bilirubin Total 0.3 0.2 - 1.3 MISYS mg/dL Specimen Anatomical Collection Method Collection Time Receive d Time (Source) Location / / Volume Laterality 05/07/2004 2:45 PM 5 4:56 CLEANING LABORER PM CLEANING LABORER Sandra Ferguson MD LAB - BLOOD ORDERABLES Performing Organization Address [facility] Phon e Number MISYS Histopathology (05/07/2004 12:00 AM CLEANING LABORER) Component Value Ref Test Analysis Performed At [facility] Range Method Time [facility] Report CASE: [id number] ^ [facility] Name: MICAH SCOTT MR#: [id number] Specimen #: [id number] Collected: 05/07/2004 Received: 05/07/2004 Reported: 05/08/2004 18:18 Ordering Phy(s): SANDRA FERGUSON SPECIMEN(S): Gallbladder FINAL DIAGNOSIS: Gallbladder - Chronic cholecystitis and cholelithiasis. Electronically signed out by: Jalil Garland M.D. CLINICAL HISTORY: Cholecystitis. GROSS: The specimen, labeled gallbladder, consists of a gallbladd er measuring 9.5 cmin length and up to 3 cm in diameter. ??The serosal napier rfaces are smooth and glistening. ??The gallbladder contains some fairl y clear greenish-black bile and a single calculus, which is black napier rfaced, granular and measures 0.9 cm in diameter. ??The wall is fair ly thin and the mucosal surfaces are smooth and uniform with no lesions seen grossly. ??There is a short segment of cystic duct of about 1.5 cm and player services representative sections are embedded in one cassette. ??JKW/ tereza MICROSCOPIC: Sections ofgallbladder wall show a flattened mucosa with haley nt small villi. ??There is some fibrosis diffusely in the lamina prop melody and also within the muscularis. ??There is sparse chronic inflammator y cell infiltration, somewhat more prominent focally with eosinophi ls, in the lamina propria. JKW/sg DT/05-08-04 Specimen (Source) Anatomical Collection Method Collection Time Re ceived Time Location / / Volume Laterality 05/07/2004 05/08/2004 6:18 PM CLEANING LABORER Sandra Ferguson MD LAB - [place] SPECIAL DIAG OR DERABLES Performing Organization Address City/State/ZIP Code Phon e Number [place] documented in this encounter Visit Diagnoses Not on filedocumented in this encounter Care Teams Cyanide Furnace Operator Relationship Specialty Start Date End Date Tashi Paredes MD PCP - General 04/14/04 12/01/11 [address] [id number] documented as of this encounter
--- OUTSIDE RECORDS SUMMARY | 2022-01-05 11:40 | XMS_ITS | Encounter Summary ---
:1960 Author Organization [place] Address [facility] [place] [address] Care Team Providers Name Role Phone Tashi Paredes MD Primary Care Provider Encounter Details Date Type Department Care Team Description 05/07/2004 Operative Report Romario Ferguson MD (Genetics Teacher) SURGICAL CONSULT ANTS MD [address] [facility] [address] [place], [place] [address] Social History Tobacco Use Types Packs/Day Years Used Date Smoking Tobacco: Never Alcohol Use Standard Drinks/Week Comments Yes 0 (1 standard drink = 0.6 oz pure alcoho l) very casual Sex Assigned at Date Recorded Not on file documented as of this encounter Progress Notes Interface, Genetics Teacher - 05/07/2004 11:59 PM MEDICAL CLERK : 1st ASS'T: Song Mcclellan, MEDICAL CLERK 2nd ASS'T: PRE-OPERATIVE DIAGNOSIS: Cholelithiasis. POST-OPERATIVE DIAGNOSIS: Cholelithiasis. OPERATION: Laparoscopic cholecystectomy. ANESTHESIA: General. INDICATION FOR OPERATION: A 44-year-old female with a history of abdominal pain. Evaluation with ultrasound showed gallstones with a normal common duct. The risks and benefits of the operation were explained to the patient. She appeared to understand. PROCEDURE: The patient placed supine. After induction of anesthesia the abdomen was prepped with Hibiclens and sterile drapes applied. The midline fascia was exposed above the umbilicus. Stay sutures of 0 Vicryl were placed and the Sarmad trocar inserted. Inspection showed the gallbladder to be thickened and edematous. There were adhesions to the gallbladder. These were taken down without cautery. After placement of the epigastric and lateral ports, the gallbladder was retracted cephalad, the cystic artery and cystic duct dissected free, the junction of the gallbladder and cystic duct clearly identified. The cystic duct was doubly clipped and divided, the cystic artery doubly clipped and divided, and the gallbladder dissected from the hepatic bed with electrocautery. A posterior artery was present. This was clipped and divided. The gallbladder was placed within an Endobag and removed through the umbilical port intact. The abdomen was irrigated and hemostasis appeared good. Marcaine injected to the trocar sites, the fascia closed with 0 Vicryl, and the skin with 4-0 Monocryl. The patient tolerated the procedure well. The sponge count and needle count were correct. Blood loss minimal. The patient was transferred to the Recovery Room in stable condition. [id number] SANDRA FERGUSON MD MT: Document: [id number] [place], [place] Name: MR#: MICAH SCOTT [id number] OPERATIVE REPORT Page 2 of 2 LCN: SDS DSC: 05/07/2004 [place], [place] Name: MR#: MICAH SCOTT -34 : Procedure Date: Account #: 1960 05/07/2004 [id number] Doctor: SANDRA FERGUSON MD OPERATIVE REPORT Page 1 of 2 CAL CLERK documented in this encounter Plan of Treatment Not on filedocumented as of this encounter Visit Diagnoses Not on filedocumented in this encounter Care Teams Turret Punch Press Operator Relationship Specialty Start Date End Date Tashi Paredes MD PCP - General 04/14/04 12/01/11 [address] [id number] documented as of this encounter
--- OUTSIDE RECORDS SUMMARY | 2022-01-05 11:40 | XMS_ITS | Encounter Summary ---
:1960 Author Organization [place] Address [address] [place] [address] Care Team Providers Name Role Phone Tashi Paredes MD Primary Care Provider Reason for Visit Reason Comments Pre-Op Exam surgery 05/07/2004 for gallbl adder removal Encounter Details Date Type Department Care Team Description 05/05/[address] [facility] Tashi Paredes MD PREOP EXAM OTHER SPECIFIED (Primary Dx); Clinic [address] CHOLELITHIASIS [place] [address] [place] [id number] Social History Tobacco Use Types Packs/Day Years Used Date Smoking Tobacco: Never Alcohol Use Standard Drinks/Week Comments Yes 0 (1 standard drink = 0.6 oz pure alcoho l) very casual Sex Assigned at Date Recorded Not on file documented as of this encounter Last Filed Vital Signs Vital Sign Reading Time Taken Comments Blood Pressure 116/86 05/05/2004 3:30 PM FIRE SUPERVISOR Pulse 80 05/05/2004 3:30 PM FIRE SUPERVISOR Temperature 36.8 ??C (98.3 ??F) 05/05/2004 3:30 PM FIRE SUPERVISOR Respiratory Rate - - Oxygen Saturation 99% 05/05/2004 3:30 PM FIRE SUPERVISOR Inhaled Oxygen Concentration - - Weight 65.8 kg (145 lb) 05/05/2004 3:30 PM FIRE SUPERVISOR Height 157.5 cm (5' 2) 05/05/2004 3:30 PM FIRE SUPERVISOR Body Mass Index 26.52 05/05/2004 3:30 PM FIRE SUPERVISOR documented in this encounter Progress Notes Tashi Paredes - 05/05/2004 3:48 PM CST REVIEW OF SYSTEMS: C: NEGATIVE for fever, chills, change in weight I: NEGATIVE for worrisome rashes, moles or lesions E: NEGATIVE for vision changes or irritation E/M: NEGATIVE for ear, mouth and throat [...] N: NEGATIVE for weakness, dizziness or paresthesias E: NEGATIVE for temperature intolerance, skin/hair changes H: NEGATIVE for bleeding problems P: NEGATIVE for changes in mood or affect EXAM: ===== BP 116/86 Pulse 80 Temp (Src) 98.3 (Oral) Ht 5' 2 (1.58m) Wt 145 lbs (65.8kg) SaO2 99% GENERAL APPEARANCE: healthy, alert and no distress EYES: EOMI, fundi benign- PERRL HENT: ear canals and TM's normal and [...] HSM or masses and bowel sounds normal : normal cervix, adnexae, and uterus without masses or discharge and rectal exam normal without masses-guaiac negative stool MS: extremities normal- no gross deformities noted, no evidence of inflammation in joints, FROM in all extremities. SKIN: no suspicious lesions or rashes NEURO: Normal strength and tone, sensory exam grossly normal, mentation intact and speech normal PSYCH: mentation appears normal. and affect normal/bright LYMPHATICS: No axillary, cervical, inguinal, or supraclavicular nodes IMPRESSION: Normal exam For above listed surgery and anesthesia: Patient is LOW risk for surgery and perioperative complications. RECOMMENDATIONS: Below recommendations were reviewed with patient Proceed without further diagnostic evaluation. Signed Electronically by: Tashi Paredes M.D. Copy of this consultation report is provided to requesting physician, Fidel Carroll M.D. SUPERVISOR Pam Montoya - 05/05/2004 3:42 PM CST PREOPERATIVE HISTORY AND PHYSICAL Amie Scott, female, 44 year old is coming for pre-op evaluation undergoing laparascopic gall bladder removal surgery. Date of Surgery: 05/07/2004 Surgeon: Fidel Carroll M.D. Hospital/Surgical Facility: [facility] Fax number of Hospital/Surgical Facility: [phone] Type of Anesthesia Anticipated: General Primary Physician: Tashi Paredes M.D. IMMUNIZATION: Last date of tetanus: Uncertain ANESTHESIA COMPLICATIONS: Anesthesia Complications: YES: Personal HX nausea and vomiting History of abnormal bleeding : NONE History of Blood Transfusions: NO No LMP recorded. LIVING WILL: Do you have a Health Care Directive or Living Will: NO SUPERVISOR documented in this encounter Nursing Notes 05/05/2004 3:30 PM CST >> PAM MONTOYA 05/05/2004 3:39 pm Amie Scott presents for preop pe for surgery on 05/07/2004 for gallbladder removal. Initial BP 116/86 Pulse 80 Temp (Src) 98.3 (Oral) Ht 5' 2 (1.58m) Wt 145 lbs (65.8kg) SaO2 99% Body Mass Index is 26.51 kg/(m^2). . BP completed using cuff size: regular. Pam Montoya CMA documented in this encounter Plan of Treatment Not on filedocumented as of this encounter Procedures Procedure Name Priority Date/Time Associated Comments Diagnosis HCL HEMOGLOBIN Routine 05/05/2004 3:52 PM Preop Exam Other Res ults for this NONLAB FIRE SUPERVISOR Specified procedure are in Cholelithiasis Nos the resul ts section. documented in this encounter Results HGB (05/05/2004 3:52 PM FIRE SUPERVISOR) athologist Signature Hemoglobin 12.7 11.7 - 15.7 [facility] g/dL [facility] Specimen Anatomical Collection Method Collection Time Receive d Time (Source) Location / / Volume Laterality 05/05/2004 3:52 PM 5 3:57 FIRE SUPERVISOR PM FIRE SUPERVISOR Tashi Paredes MD LABORATORY Performing Organization Address City/State/ZIP Code Phon e Number [facility] [address] [place] [address] [facility] documented in this encounter Visit Diagnoses Diagnosis Other specified pre-operative examinatio n - Primary Calculus of gallbladder without mention of cholecystitis or obstruction documented in this encounter Care Teams Cylinder Grinder Relationship Specialty Start Date End Date Tashi Paredes MD PCP - General 04/14/04 12/01/11 [address] [id number] documented as of this encounter
--- OUTSIDE RECORDS SUMMARY | 2022-01-05 11:40 | XMS_ITS | Encounter Summary ---
:1960 Author Organization [facility] Address [address] [place] [id number] Care Team Providers Name Role Phone Tashi Paredes MD Primary Care Provider Reason for Visit Reason Comments Chest Pain R side lower rib pain Encounter Details Date Type Department Care Team Description 04/14/2004 Office Visit [facility] Tashi Paredes MD ABDOMINAL PAIN [facility] [address] (Primary Dx) [address] [place] [id number] Social History Tobacco Use Types Packs/Day Years Used Date Smoking Tobacco: Never Alcohol Use Standard Drinks/Week Comments Yes 0 (1 standard drink = 0.6 oz pure alcoho l) very casual Sex Assigned at Date Recorded Not on file documented as of this encounter Last Filed Vital Signs Vital Sign Reading Time Taken Comments Blood Pressure 110/72 04/14/2004 2:45 PM GEODETIC ADVISOR Pulse - - Temperature 37.1 ??C (98.7 ??F) 04/14/2004 2:45 PM GEODETIC ADVISOR Respiratory Rate - - Oxygen Saturation - - Inhaled Oxygen Concentration - - Weight - - Height - - Body Mass Index - - documented in this encounter Progress Notes Tashi Paredes - 04/14/2004 3:27 PM CST SUBJECTIVE: Amie Scott 44 year old female presents for follow-up of acute onset RUQ pain on 04/09/2004, debilitating in nature and seemingly radiated to sternum and left shoulder. She went to the [facility]. She had blood work done (told she had no signs of blood clot) and chest xrays (negative). Discussed CT scan (but did not have one). She states the pain in her RUQ wakes her up at night. History updated through 04/14/2004: Previous Medical History: None on file Review of patient's past surgical history indicates: NONSPECIFIC PROCEDURE Comment: laparoscopy by SAW FILER No family history on file Obstetric History [...] Narrative None on file Current outpatient prescriptions: NO ACTIVE MEDICATIONS . Allergies As of Date: 04/14/2004 Noted Reaction NO KNOWN DRUG ALLERGIES 04/14/2004 Date Reviewed: 04/14/2004 ROS: GI: POSITIVE for abdominal pain RUQ C: NEGATIVE for fever, chills, change in [...] no murmur, click or rub ABDOMEN: soft, mild RUQ tenderness with equivocal , without hepatosplenomegaly or masses and bowel sounds normal NEURO: Normal strength and tone, sensory exam grossly normal, mentation intact and speech normal ASSESSMENT/PLAN: 1- Abd pain, ruq, suspect cholelithiasis. Signs and symptoms of cholecystitis d/w pt. She accepts referral to [facility] for abd u/s. She will return to ER at [facility] if T> 100.3 accompanying any abdominal pain. ETIC ADVISOR documented in this encounter Nursing Notes 04/14/2004 2:45 PM CST >> PAM MONTOYA 04/14/2004 2:53 pm Amie Scott presents for R sided lower rib pain x 5 days. Pt states pain is moving across her upper torso. In ER and had normal heart study 3 days ago. Still with pain and chest tightness. Initial BP 110/72 Temp (Src) 98.7 (Oral) There is no height or weight on file to calculate BMI. . BP completed using cuff size: regular. Pam Montoya CMA documented in this encounter Plan of Treatment Not on filedocumented as of this encounter Procedures Procedure Name Priority Date/Time Associated Diagnosis Comme nts HC US ABDOMEN Routine 04/17/2004 9:36 AM Abdominal pain, Resul ts for this COMPLETE GEODETIC ADVISOR right upper quadrant procedu re are in the results section. documented in this encounter Results SONO ABDOMEN COMPLETE (04/17/2004 9:36 AM GEODETIC ADVISOR) Anatomical Region Laterality Modality Other Specimen (Source) Anatomical Collection Method Collection Time Re ceived Time Location / / Volume Laterality 04/17/2004 9:36 AM GEODETIC ADVISOR Impressions 04/17/2004 4:43 PM GEODETIC ADVISOR COMPLETE ABDOMINAL ULTRASOUND - 5 ?? HISTORY: Pain. ?? FINDINGS: Gallstones. The gallbladder wa ll is normal. Normal common bile duct. Normal liver, pancreas, splee n, kidneys and aorta. ?? IMPRESSION: ?? Cholelithiasis. Tashi Paredes MD [employer] documented in this encounter Visit Diagnoses Diagnosis Abdominal pain, right upper quadrant - P rimary documented in this encounter Care Teams Lead Teller Relationship Specialty Start Date End Date Tashi Paredes MD PCP - General 04/14/04 12/01/11 [id number] [id number] documented as of this encounter
[2022-01-05 11:46] LABS: Basophils Absolute Auto 0.03 K/uL (0.00-0.30); Basophils Percent Auto 0.4 % (0.0-3.0); Eosinophils Absolute Auto 0.22 K/uL (0.00-0.50); Eosinophils Percent Auto 3.2 % (0.0-7.0); Hematocrit 40.8 % (33.0-51.0); Hemoglobin* 13.1 gm/dL (12.0-16.0); Immature Granulocytes Abs Auto 0.01 K/uL (0.00-0.30); Immature Granulocytes Pct Auto 0.1 %; Lymphocytes Absolute Auto 2.01 K/uL (0.90-2.90); Lymphocytes Percent Auto 29.5 % (20-44); Mean Corpuscular HGB Conc 32 gm/dL (32-36); Mean Corpuscular Hemoglobin 27 pg (26-34); Mean Corpuscular Volume 84 fL (80-100); Monocytes Percent Auto 8.4 % (0.0-11.0); Neutrophils Absolute Auto 3.98 K/uL (1.7-7.0); Neutrophils Percent Auto 58.4 % (42.0-72.0); Platelet Count* 296 K/uL (140-440); Red Blood Count 4.84 m/uL (4.00-5.20); White Blood Count* 6.82 K/uL (4.50-11.00)
--- OUTSIDE RECORDS SUMMARY | 2022-01-05 11:50 | XMS_ITS ---
:1960 Author Care Team Providers Name Role Phone DR. MILTON NG Referring Provider [phone] Allergies Code Code System Name Reaction Severity [...] Temporal Bone, W/o Contrast Rayus Ra diology [place] [address] [place] [address] (Work Place) Results Lab Results Date Name Specimen Result Interpretation Description Value Range Status Address ? ? Oral Appliance ? Type of mandibular ? ? [place]: [address] Appliance [address] appliance [address] , [place] Past Encounters None recorded. Social History Tobacco [...]
[2022-01-05 12:00] LABS: Albumin* 4.4 g/dL (3.3-5.0); Chloride* 106 mmol/L (96-114); Slide Review Reflex No
[2022-01-05 12:01] LABS: Potassium* 3.8 mmol/L (3.6-5.1); Sodium* 138 mmol/L (135-149)
[2022-01-05 12:03] LABS: Alkaline Phosphatase* 71 U/L (40-150); Aspartate Amino Transferase* 22 U/L (12-35); Bilirubin Total* 0.6 mg/dL (0.1-1.5); Carbon Dioxide* 27 mmol/L (20-32); Creatinine* 0.9 mg/dL (0.5-1.5); Est. Creatinine Clearance* 44.02; Estimated Glomerular Filt Rate 72 ml/min; Total Protein* 7.1 g/dL (6.0-8.3)
[2022-01-05 12:04] LABS: Alanine Aminotransferase* 25 U/L (4-35); Blood Urea Nitrogen* 20 mg/dL (7-30); Glucose* 91 mg/dL (60-115); Lipase* 123 U/L (23-300); Magnesium* 1.8 mg/dL (1.5-2.6)
[2022-01-05 12:09] LABS: C Reactive Protein* < 0.5 mg/dL (0.5-1.0)
[2022-01-05 12:18] LABS: D Dimer Quantitative* < 0.27 ug/ml (0.00-0.50)
[2022-01-05 12:42] LABS: PCR FLU A Negative PCR FLU A (Negative); PCR FLU B Negative PCR FLU B (Negative)
[2022-01-05 12:44] LABS: SARS PCR* Negative SARS-CoV-2 (Negative)
[2022-01-05 12:50] LABS: Thyroid Stimulating Hormone* 0.838 uIU/mL (0.270-4.20)
[2022-01-05 12:51] LABS: Vitamin B12* 298 pg/mL (243-894)
[2022-01-05 13:00] VITALS: BP 127/83; PULSE 64; O2SAT 96
[2022-01-05 14:00] VITALS: BP 134/80; PULSE 62; O2SAT 96
[2022-01-05 15:20] VITALS: BP 138/80; PULSE 61; RESP 18; O2SAT 97
[2022-01-05 15:24] LABS: Appearance Urine Clear (Clear); Bilirubin Urine Negative (Negative); Blood Urine Negative (Negative); Color Urine Yellow (Yellow); Glucose Urine Negative (Negative); Ketones Urine Negative (Negative); Leukocyte Esterase Urine Negative (Negative); Nitrite Urine Negative (Negative); Protein Urine Negative (Negative); Specific Gravity Urine >= 1.030 (1.000-1.030); Urobilinogen Urine 0.2 (0.2-1.0)
[2022-01-05 15:57] LABS: RBC Urine 0-2 (0-2); WBC Urine 0-2 (0-5)
[2022-01-05] MEDS: ASPIRIN 81 MG TAB.CHEW 324 MG PO (17:35)
[2022-01-06 18:38] LABS: Vitamin D, 1,25-Dihydroxy 43.3 pg/mL (19.9-79.3)
== END 2022-01-05 18:13 | disposition home or self-care (01) ==
PROVIDERS: Emergency Provider Family Medicine
DX: R07.9 Chest pain, unspecified (principal); R53.83 Other fatigue; R78.5 Finding of other psychotropic drug in blood; E78.5 Hyperlipidemia, unspecified
CPT/HCPCS: 36415; 71045; 80053; 81001; 82607; 82652; 83690; 83735; 84443; 85025; 85379; 86140; 87631; 93005; 93306; 94761; 99284; 99285; A9270

== ENCOUNTER 2022-04-05 16:33 | Emergency (ER) | payer OTHER, SELFPAY ==
[2022-04-05 16:55] VITALS: BP 142/80; PULSE 64; RESP 18; TEMP 36.2; O2SAT 97
--- NOTE | 2022-04-05 17:09 | ED_ITS ---
HPI - Skin/Abscess/Foreign Bdy General Time Seen by Provider: 17:10 Date Seen: 04/05/22 Chief complaint: Skin/Abscess/Foreign Body Stated complaint: Chest pain, Rash on left side mid ribs Time Seen by Provider: 04/05/22 16:42 Source: patient and RN notes reviewed Mode of arrival: ambulatory Limitations: no limitations History of Present Illness HPI narrative: Patient is a 62-year-old female coming in with severe left-sided chest pain. She started Wednesday with some discomfort, thought something was bothering her longer bra line. The pain is intensified, she could not sleep. She has a burning sensation when she touches her skin on that side. She started having a red rash that broke out today, her notes when she shows me the rash that it has expanded more. No fevers. She is showing me a classic dermatomal rash on her left lower chest wall that wraps around onto her back in the same dermatome. This is classic for shingles. She has been taking ibuprofen 600 mg every 6 hours without any relief. She states she is sensitive to medicines, states she cannot take Demerol at all because it makes her throw up. Reviewed with her that we do not use that anymore. She has had her gallbladder out in thinks remotely that she did tolerate Percocet. She is a bit concerned as she does tend to get nauseated. Reviewed with her that all narcotics can be nauseating. MD complaint: rash Related Data Home Medications Medication Instructions Recorded Confirmed atenolol 50 mg-chlorthalidone 25 tab 01/05/22 mg tablet cetirizine 10 mg tablet mg 01/05/22 simvastatin .ROUTE 01/05/22 citalopram 20 mg tablet mg 04/05/22 omeprazole 20 mg capsule,delayed mg 04/05/22 release Previous Rx's Medication Instructions Recorded gabapentin 100 mg capsule 100 mg PO QHS #14 caps 04/05/22 oxycodone 5 mg tablet 5 mg PO Q6H PRN pain #10 tabs 04/05/22 valacyclovir 1 gram tablet 1,000 mg PO TID #20 tabs 04/05/22 Allergies Allergy/AdvReac Type Severity Reaction Status Date / Time No Known Drug Allergies Allergy Verified 01/05/22 10:45 Review of Systems Narrative: As per HPI. PFSH PFSH Social History Smoking Status: Former smoker How often do you have a drink containing alcohol: 2-3 times a week AUDIT-C Alcohol total score: 3 Non-prescribed substance use: denies use Exam Const: Vital Signs, click to edit/add: Vital Signs - 24 hr 04/05/22 16:55 Temperature 97.2 F L Pulse Rate [Right Pulse Oximeter] 64 Respiratory Rate 18 Blood Pressure [Ri ght Upper Arm] 142/80 H Pulse Oximetry 97 Oxygen Delivery Me thod Room Air Documenting provider has reviewed patient's vital signs: yes Common normals: average body habitus, oriented x3, no limitations, healthy appearing, alert and well nourished General appearance: cooperative, well kempt and well developed Other: This 62-year-old female appears uncomfortable. She is able speak in complete sentences. When she lifts up her top I can see erythematous based lesions with some vesicles developing in various areas along the left lower chest wall in a dermatome that wraps around to the back. There is no evidence of any secondary infection, none of these are scabbed over yet, all are new. Neuro: Common normals: oriented x3 Sensorium/orientation: alert Psych: Appearance: well kempt Course Course Hospital Course: Reviewed with patient that this is classic shingles. Most patients frequently have a prodrome pain syndrome prior to the presentation of the rash. We have discussed the antiviral treatment in the importance of this. Were going to give her a dose of oxycodone here and see if this does help with the pain, she can use Tylenol and/or ibuprofen per bottle directions as supplemental pain management. I have reviewed up-to-date, I am still inclined to give her a prescription of some gabapentin or amitriptyline to see if this might help her at bedtime with sleeping. We will see if she tolerates the oxycodone. Vital Signs Vital signs: Initial Vital Signs Temperature 97.2 F L 04/05/22 16:55 Temperature Source Temporal Artery Scan 04/05/22 16:55 Pulse Rate 64 04/05/22 16:55 Respiratory Rate 18 04/05/22 16:55 Blood Pressure 142/80 H 04/05/22 16:55 Blood Pressure Mean 100 02/26/23 16:55 Blood Pressure Position Sitting 04/05/22 16:55 Pulse Oximetry 97 04/05/22 16:55 Oxygen Delivery Method 04/05/22 16:55 Vital Signs Temperature 97.2 F L 04/05/22 16:55 Pulse Rate 64 04/05/22 16:55 Respiratory Rate 18 04/05/22 16:55 Blood Pressure 142/80 H 04/05/22 16:55 Pulse Oximetry 97 04/05/22 16:55 Oxygen Delivery Method 04/05/22 16:55 Temperature 97.2 F L 04/05/22 16:55 Pulse Rate 64 04/05/22 16:55 Respiratory Rate 18 04/05/22 16:55 Blood Pressure 142/80 H 04/05/22 16:55 Pulse Oximetry 97 04/05/22 16:55 Oxygen Delivery Method 04/05/22 16:55 Critical Care Time Critical Care Time Critical Care Time: No Discharge Plan Discharge Clinical Impression: Herpes zoster Patient Disposition: Home, Self-Care Condition: Stable Instructions: Shingles (ED) Additional Instructions: Need to take the Valtrex as prescribed, start tomorrow morning. Use Tylenol 1000 mg 3 times a day baseline for pain. Can supplement with Advil or ibuprofen per bottle directions for additional pain management. For severe pain, can take the oxycodone as prescribed. Have written for gabapentin at bedtime if needed. 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 Recommend follow-up with your primary care provider within the next 1-2 weeks. It is possible that a post pain c ondition from shingles called post herpetic neuralgia can happen, this can be managed through your primary care provider if needed. Taking the antiviral medicine can help stop the outbreak of the rash. Can consider shingles vaccination at an appropriate time interval from the onset of this rash. Oxycodone can be constipating, may need to use senna and or MiraLax to help prevent constipation, follow package or bottle dosing instructions. Activity Level: Activity as Tolerated Prescriptions: New valacyclovir 1 gram tablet 1,000 mg PO TID Qty: 20 0RF oxycodone 5 mg tablet 5 mg PO Q6H PRN (Reason: pain) Qty: 10 0RF gabapentin 100 mg capsule 100 mg PO QHS Qty: 14 0RF No Action cetirizine 10 mg tablet atenolol-chlorthalidone 50-25 mg tablet simvastatin .ROUTE citalopram 20 mg tablet Label Comments: TAKE ONE TABLET BY MOUTH EVERY MORNING omeprazole 20 mg capsule,delayed release(DR/EC) Label Comments: TAKE ONE CAPSULE BY MOUTH EVERY DAY Follow Up/Referrals: Provider,Not a Local [Primary Care Provider] - Stand Alone Forms: [facility] Info Instructions
[2022-04-05] MEDS: OXYCODONE 5 MG TABLET PO (17:11)
[2022-04-05] MEDS: VALACYCLOVIR HCL 500 MG TABLET 1000 MG PO (17:39)
== END 2022-04-05 18:07 | disposition home or self-care (01) ==
PROVIDERS: Emergency Provider Family Medicine
DX: B02.9 Zoster without complications (principal)
CPT/HCPCS: 99283; A9270